=== PATIENT | male | born 1970 | race Caucasian/White ===

== ENCOUNTER 2024-02-03 11:49 | Inpatient (IN) ==
[2024-02-03] MEDS ORDERED: SODIUM CHLORIDE 0.9% 250 ML IV PRN ×2 (12:14→15:14)
[2024-02-03 12:22] LABS: Base Excess VBG -9.9 mEq/L; HCO3 VBG 16 mmol/L; Oxygen Saturation VBG < 60.0 %; PCO2 VBG 35 mmHg (38-50); PO2 VBG 20 mmHg; pH VBG 7.27 (7.36-7.41)
--- NOTE | 2024-02-03 12:22 | Emergency Department Note ---
Impression & Plan Severe sepsis with septic shock, Lactic acidosis, Rectal mass, Anemia, Hyperkalemia, Hematochezia, High anion gap metabolic acidosis ED Provider Note NAME: KEVIN KELLER AGE: 53 SEX: M : 1970 ARRIVES VIA: Walk-In INFORMANT: Patient ED PROVIDER(S): Elbert Schaefer MD CHIEF COMPLAINT: Weakness, illness, referred. PLAN: Disposition: Admit MEDICAL DECISION MAKING: The patient is a 53-year-old gentleman with past medical history of schizophrenia, hypertension who presents to the emergency department via walk-in accompanied by his sister for evaluation of illness/weakness in the setting of having 40 pound weight loss since July and acute decline over the past couple of weeks where family had urged him to see his doctor but he had declined but due to the severity of his illness today agreed to see his primary care doctor. He had blood work performed prior to his visit but upon seeing the patient who appeared critically ill was referred mainly to emergency department. Patient is a poor historian. He denies any black or bloody stool. He denies nausea or vomiting. He denies any alcohol use. Denies any drug use. Patient arrives to emergency department hypotensive with blood pressure 78/47 and heart in the 120s with rectal temperature of 36.6. He appears pale, clammy with rigors. Rectal exam demonstrates red/maroon- colored stool. I-STAT was obtained and demonstrates a hemoglobin of 10.5 with a creatinine of 1.1 and BUN of 10. There is a metabolic acidosis with a bicarbonate of 17. Anion gap is upper limit of normal at 20 per i-STAT range. Due to concern for active hemorrhage the patient was consented for blood transfusion and 1 unit of PRBCs was ordered to transfuse with 2 to hold given his hypotension. EKG demonstrated sinus tachycardia without overt ST elevation or depression. Chest x-ray negative for acute cardiopulmonary process per my preliminary independent interpretation. WBC 31.5 K with neutrophilia and left shift. H/H was 9.3/3.3 on lab draw. Platelets 636, nonspecific and likely reactive. INR is 1.2. Chemistry demonstrates anion gap metabolic acidosis with anion gap of 17 and bicarbonate of 17. VBG demonstrates mild acidemia with pH of LFTs seven 7.27. LFTs are unremarkable. Iron studies also obtained and demonstrate iron deficiency of 25. High-sensitivity troponin 7.2, within limits. Lipase is normal. Procalcitonin is mildly elevated at 0.79. UA without evidence of infection. CT of the head was performed and negative for acute abnormalities. CT of the chest also negative for ordered manage ordered CT of the abdomen pelvis demonstrates a large rectal mass with invasion of the prostate suspected and mesenteric lymphadenopathy raising suspicion for metastatic disease. No evidence of obstruction at this time. No active extravasation. Patient did have some improvement in his heart rate and blood pressure following 2 L of crystalloid/normal saline and 1 unit of PRBCs. Case discussed with general surgery CHRIS Spear with Dr. Berumen, general surgery on-call. Appreciate consultation/recommendations. Agrees that patient will require colorectal surgery for definitive management of CT findings. However they will be available for inpatient team consultation if the patient does is admitted to our facility though surgical intervention would not be considered. Case was discussed with Dr. Somers, [facility] hospitalist, who evaluated the patient for admission pending ICU recommendations. Case also discussed with Dr. Vásquez, ICU [employer] [facility] who evaluated patient at the bedside. Appreciate consultation and recommendations. Agrees patient will require medical stabilization but definitive treatment will involve colorectal surgery and discussed with family who did prefer trial to see if transfer to tertiary care center will be possible. Referred they did prefer [facility] transfer which is in line with the patient's insurance. Case discussed with [facility] ICU [facility] st[facility], Dr. Joseph. He does accept the patient for transfer to the medical ICU for further management. There are beds available and patient was placed as a priority 2 transfer and so a bed will be assigned within 8 hours per the [facility] transfer center. In the interim the patient remained with guarded hemodynamic stability with MAPS ranging from 60-70. Patient was given a second unit of PRBCs, the patient did not exhibit any episodes of spontaneous hematochezia. Levophed was subsequently ordered for additional blood pressure support in setting of component of sepsis. Labs remained stable in the 70s on minimal infusion at 0.05 mcg/KG/min. Bed assignment still pending and unable to be determined upon review with [facility] transfer center. Thus, the patient will be admitted to our facility/ICU for further management until bed availability is assigned and transportation can be arranged. Further management per admitting team. Triage Nursing notes reviewed and agree them. Prior/external medical records reviewed Vital Signs: reviewed Differential diagnosis: Infection, dehydration, metabolic abnormality, hypo/hyperglycemia, electrolyte disturbance, anemia, hypoxia, cardiac sources, intracerebral event, toxicologic, neurologic, as well as other pathologies. ER treatment provided: See below. Diagnostics interpreted by me: ECG: Sinus tachycardia, 153 bpm, no ectopy, no overt ST elevation or depression, QTc 504, QRS 72. Cardiac Monitoring: An order for continuous cardiac monitoring was placed and demonstrated Sinus tachycardia, 153 bpm, no ectopy, Laboratory studies: See below Imaging studies: See below Consultation(s): Dr. Somers, [facility] hospitalist. General surgery CHRIS Spear with Dr. Berumen, general surgery on-call. Dr. Vásquez, [place] ICU [employer] st[facility]. Dr. Joseph, [facility] ICU [facility] st[facility]. HPI: The patient is a 53-year-old gentleman with past medical history of schizophrenia, hypertension who presents to the emergency department via walk-in accompanied by his sister for evaluation of illness/weakness in the setting of having 40 pound weight loss since July and acute decline over the past couple of weeks where family had urged him to see his doctor but he had declined but due to the severity of his illness today agreed to see his primary care doctor. He had blood work performed prior to his visit but upon seeing the patient who appeared critically ill was referred mainly to emergency department. Patient is a poor historian. He denies any black or bloody stool. He denies nausea or vomiting. He denies any alcohol use. Denies any drug use. ROS: See above HPI for pertinent positives & negatives. A total of 10 systems reviewed and were otherwise negative. VITALS:See Below PHYSICAL EXAMINATION: GENERAL: Awake, alert, ill-appearing, in no distress HENT: Normocephalic, atraumatic. Oropharynx with pale, dry mucous membranes. EYES: Normal conjunctiva. Sclera non-icteric. NECK: Supple. No nuchal rigidity. FROM. No JVD. RESPIRATORY: Clear to auscultation. CARDIAC: Tachycardic rate, normal rhythm. Extremities warm and well perfused. Pulses equal. ABDOMEN: Soft, non-distended. No tenderness to palpation. No rebound or guarding. No masses. RECTAL: Caden red/maroon-colored stool. MUSCULOSKELETAL: Chest examination reveals no tenderness. The back is symmetrical on inspection without obvious abnormality. There is no CVA tenderness to palpation. No joint edema. LOWER EXTREMITIES: Calves are equal size bilaterally and non-tender. No edema. No discoloration. NEURO: Normal sensorium. No sensory or motor deficits noted. SKIN: Severe pallor, clammy. No rash or jaundice noted. ED COURSE: Procedures: Central Venous Catheter Indication: Septic shock/vasopressors Catheter type: 7.5f Triple lumen Location: Left IJ Verbal consent was obtained after the risks and benefits were explained, including but not limited to pneumothorax, hemothorax, vessel injury, bleeding, scarring, infection, pain, and bone/joint/nerve damage. At this time, the risks of the procedure are less than the risks of NOT performing the procedure. A time out was taken and the correct patient and site identified. The patient was placed in the supine position and the skin was prepped in the standard fashion with chlorhexidine and full sterile drapes applied. The proper landmarks were identified with ultrasound, anesthetized with 1% lidocaine without epinephrine, and the needle was inserted through the skin in the standard fashion. The needle was carefully advanced into blood vessel lumen under dynamic ultrasound guidance. The guidewire was placed uneventfully and confirmed with ultrasound. The vessel is dilated and the catheter was placed. It was sutured into position. There was good blood return from all ports. The patient tolerated the procedure well and there were no complications. Post procedure x-ray with acceptable placement in distal SVC. No pneumothorax. Critical Care: I have personally spent greater than 125 minutes of critical care time in the direct management of this patient. This includes bedside care, interpretation of diagnostic studies, and testing, discussion with consultants, patient, and family members, and other required patient management activities. This 125 minutes is in excess of all separately billable procedures. Elbert Schaefer MD Past Med/Surg History Problem List (Updated 02/03/24 @ 19:57 by Elbert Schaefer MD) High anion gap metabolic acidosis (Acute) Hematochezia (Acute) Hyponatremia Schizophrenia Sepsis Hyperkalemia (Acute) Anemia (Acute) Rectal mass (Acute) Lactic acidosis (Acute) Severe sepsis with septic shock (Acute) Medical History Hypothyroid Social History Feels Safe at Home: Yes Allergies Allergies Allergy/AdvReac Type Severity Reaction Status Date / Time aspirin Allergy Mild Unverified 08/10/09 03:49 PCN Allergy Mild Uncoded 01/06/06 16:09 Home Meds Home Medications Medication Instructions Recorded Confirmed atorvastatin 40 mg tablet 40 mg PO UD 02/03/24 02/03/24 carvedilol 12.5 mg tablet 12.5 mg PO UD 02/03/24 02/03/24 fenofibrate nanocrystallized 48 mg 48 mg PO UD 02/03/24 02/03/24 tablet hydrochlorothiazide 12.5 mg tablet 12.5 mg PO UD 02/03/24 02/03/24 levothyroxine 50 mcg tablet 50 mcg PO UD 02/03/24 02/03/24 lisinopril 5 mg tablet 5 mg PO UD 02/03/24 02/03/24 metformin 500 mg tablet,extended 1,000 mg PO QAM 02/03/24 02/03/24 release 24 hr risperidone 2 mg tablet 2 mg PO HS 02/03/24 02/03/24 spironolactone 50 mg tablet 50 mg PO DAILY 02/03/24 02/03/24 venlafaxine 37.5 mg 37.5 mg PO QAM 02/03/24 02/03/24 capsule,extended release 24 hr (Effexor XR) venlafaxine 75 mg capsule,extended 75 mg PO DAILY 02/03/24 02/03/24 release 24 hr (Effexor XR) Results & Data (ED) Vital Signs Vital Signs - 24 hr 02/03/24 11:51 02/03/24 11:58 02/03/24 12:01 Temperature 35.5 C L Temperature Source Skin Pulse Rate 153 H Pulse Rate [Right Finger] Pulse Rate from SpO2 Sensor Respiratory Rate 20 28 H Respiratory Effort / Characteristics Respiratory Depth Respiratory Pattern Blood Pressure 78/47 L 67/46 L 77/40 L Blood Pressure [Right Arm] Blood Pressure Mean 57 49 50 Blood Pressure Mean [Right Arm] Pulse Oximetry 85 L Oxygen Delivery Method Room Air Sepsis Recent Fever Within 48 Hours No Sepsis New/Unexplained Change in Mental Status Yes Sepsis Action Taken by Nursing Physician Notified 02/03/24 12:12 02/03/24 12:17 02/03/24 12:39 Temperature Temperature Source Pulse Rate 137 H 129 H 122 H Pulse Rate [Right Finger] Pulse Rate from SpO2 Sensor 123 H Respiratory Rate 28 H 17 Respiratory Effort / Characteristics Respiratory Depth Respiratory Pattern Blood Pressure 81/52 L 90/54 L Blood Pressure [Right Arm] Blood Pressure Mean 61 66 Blood Pressure Mean [Right Arm] Pulse Oximetry 99 Oxygen Delivery Method Sepsis Recent Fever Within 48 Hours Sepsis New/Unexplained Change in Mental Status Sepsis Action Taken by Nursing 02/03/24 13:12 02/03/24 13:13 02/03/24 14:01 Temperature 36.5 C Temperature Source Oral Pulse Rate 119 H 117 H Pulse Rate [Right Finger] 120 H Pulse Rate from SpO2 Sensor Respiratory Rate 26 H 26 H 24 Respiratory Effort / Characteristics Respiratory Depth Respiratory Pattern Tachypnea Blood Pressure 82/48 L 87/59 L Blood Pressure [Right Arm] 82/48 L Blood Pressure Mean 55 68 Blood Pressure Mean [Right Arm] 59 Pulse Oximetry 100 100 100 Oxygen Delivery Method Room Air Sepsis Recent Fever Within 48 Hours Sepsis New/Unexplained Change in Mental Status Sepsis Action Taken by Nursing 02/03/24 14:18 02/03/24 14:33 02/03/24 14:45 Temperature 36.7 C 36.6 C Temperature Source Oral Oral Pulse Rate 117 H 118 H 118 H Pulse Rate [Right Finger] Pulse Rate from SpO2 Sensor 118 H Respiratory Rate 24 24 31 H Respiratory Effort / Characteristics Respiratory Depth Respiratory Pattern Blood Pressure 80/63 L 80/59 L 96/64 L Blood Pressure [Right Arm] Blood Pressure Mean 68 66 74 Blood Pressure Mean [Right Arm] Pulse Oximetry 100 100 100 Oxygen Delivery Method Sepsis Recent Fever Within 48 Hours Sepsis New/Unexplained Change in Mental Status Sepsis Action Taken by Nursing 02/03/24 15:00 02/03/24 15:02 02/03/24 15:03 Temperature 36.6 C Temperature Source Oral Pulse Rate 115 H Pulse Rate [Right Finger] Pulse Rate from SpO2 Sensor Respiratory Rate 24 Respiratory Effort / Characteristics Respiratory Depth Respiratory Pattern Blood Pressure 98/63 L 89/64 L 86/64 L Blood Pressure [Right Arm] Blood Pressure Mean 72 72 71 Blood Pressure Mean [Right Arm] Pulse Oximetry 100 Oxygen Delivery Method Sepsis Recent Fever Within 48 Hours Sepsis New/Unexplained Change in Mental Status Sepsis Action Taken by Nursing 02/03/24 15:06 02/03/24 15:15 02/03/24 15:15 Temperature Temperature Source Pulse Rate 119 H 118 H Pulse Rate [Right Finger] 117 H Pulse Rate from SpO2 Sensor 119 H 116 H Respiratory Rate 32 H 28 H 16 Respiratory Effort / Characteristics Non-Labored Spontaneous Respiratory Depth Normal Respiratory Pattern Blood Pressure 89/64 L 93/60 L Blood Pressure [Right Arm] 93/60 L Blood Pressure Mean 72 71 Blood Pressure Mean [Right Arm] 71 Pulse Oximetry 100 100 100 Oxygen Delivery Method Room Air Sepsis Recent Fever Within 48 Hours Sepsis New/Unexplained Change in Mental Status Sepsis Action Taken by Nursing 02/03/24 15:30 02/03/24 15:45 02/03/24 15:51 Temperature Temperature Source Pulse Rate 118 H 117 H Pulse Rate [Right Finger] Pulse Rate from SpO2 Sensor 119 H 112 H Respiratory Rate 17 27 H Respiratory Effort / Characteristics Respiratory Depth Respiratory Pattern Blood Pressure 89/58 L 87/59 L Blood Pressure [Right Arm] Blood Pressure Mean 68 63 Blood Pressure Mean [Right Arm] Pulse Oximetry 100 81 L Oxygen Delivery Method Sepsis Recent Fever Within 48 Hours Sepsis New/Unexplained Change in Mental Status Sepsis Action Taken by Nursing 02/03/24 15:57 02/03/24 16:07 02/03/24 16:21 Temperature 36.5 C Temperature Source Oral Pulse Rate 109 H 100 H 99 H Pulse Rate [Right Finger] Pulse Rate from SpO2 Sensor 108 H 99 H Respiratory Rate 27 H 29 H 19 Respiratory Effort / Characteristics Respiratory Depth Respiratory Pattern Blood Pressure 94/67 L 94/67 L 88/55 L Blood Pressure [Right Arm] Blood Pressure Mean 76 76 66 Blood Pressure Mean [Right Arm] Pulse Oximetry 99 100 100 Oxygen Delivery Method Sepsis Recent Fever Within 48 Hours Sepsis New/Unexplained Change in Mental Status Sepsis Action Taken by Nursing 02/03/24 16:24 02/03/24 16:24 02/03/24 16:30 Temperature 36.6 C Temperature Source Oral Pulse Rate 100 H 102 H Pulse Rate [Right Finger] Pulse Rate from SpO2 Sensor Respiratory Rate 27 H Respiratory Effort / Characteristics Respiratory Depth Respiratory Pattern Blood Pressure 87/51 L Blood Pressure [Right Arm] Blood Pressure Mean 63 Blood Pressure Mean [Right Arm] Pulse Oximetry 100 100 Oxygen Delivery Method Room Air Sepsis Recent Fever Within 48 Hours Sepsis New/Unexplained Change in Mental Status Sepsis Action Taken by Nursing 02/03/24 16:39 02/03/24 16:42 02/03/24 16:45 Temperature 36.5 C Temperature Source Oral Pulse Rate 108 H 111 H 113 H Pulse Rate [Right Finger] Pulse Rate from SpO2 Sensor 113 H Respiratory Rate 20 19 21 Respiratory Effort / Characteristics Respiratory Depth Respiratory Pattern Blood Pressure 83/56 L 83/56 L Blood Pressure [Right Arm] Blood Pressure Mean 65 65 Blood Pressure Mean [Right Arm] Pulse Oximetry 100 100 97 Oxygen Delivery Method Sepsis Recent Fever Within 48 Hours Sepsis New/Unexplained Change in Mental Status Sepsis Action Taken by Nursing 02/03/24 17:00 02/03/24 17:03 02/03/24 17:09 Temperature 36.6 C Temperature Source Oral Pulse Rate 105 H 97 H Pulse Rate [Right Finger] 106 H Pulse Rate from SpO2 Sensor 112 H Respiratory Rate 25 H 23 19 Respiratory Effort / Characteristics Non-Labored Spontaneous Respiratory Depth Normal Respiratory Pattern Blood Pressure 81/52 L 94/62 L Blood Pressure [Right Arm] 81/52 L Blood Pressure Mean 61 72 Blood Pressure Mean [Right Arm] 61 Pulse Oximetry 98 100 100 Oxygen Delivery Method Room Air Sepsis Recent Fever Within 48 Hours Sepsis New/Unexplained Change in Mental Status Sepsis Action Taken by Nursing 02/03/24 17:15 02/03/24 17:15 02/03/24 17:27 Temperature Temperature Source Pulse Rate 104 H 101 H Pulse Rate [Right Finger] Pulse Rate from SpO2 Sensor 103 H 101 H Respiratory Rate 27 H 25 H Respiratory Effort / Characteristics Respiratory Depth Respiratory Pattern Blood Pressure 94/62 L 94/62 L 88/59 L Blood Pressure [Right Arm] Blood Pressure Mean 72 72 68 Blood Pressure Mean [Right Arm] Pulse Oximetry 100 100 Oxygen Delivery Method Sepsis Recent Fever Within 48 Hours Sepsis New/Unexplained Change in Mental Status Sepsis Action Taken by Nursing 02/03/24 17:45 02/03/24 17:45 02/03/24 18:00 Temperature Temperature Source Pulse Rate 99 H 102 H Pulse Rate [Right Finger] 97 H Pulse Rate from SpO2 Sensor 101 H Respiratory Rate 23 27 H Respiratory Effort / Characteristics Respiratory Depth Respiratory Pattern Blood Pressure 94/62 L 97/64 L Blood Pressure [Right Arm] 94/62 L Blood Pressure Mean 66 75 Blood Pressure Mean [Right Arm] 72 Pulse Oximetry 100 99 Oxygen Delivery Method Room Air Sepsis Recent Fever Within 48 Hours Sepsis New/Unexplained Change in Mental Status Sepsis Action Taken by Nursing 02/03/24 18:15 02/03/24 18:30 02/03/24 18:45 Temperature Temperature Source Pulse Rate 97 H 102 H 100 H Pulse Rate [Right Finger] Pulse Rate from SpO2 Sensor Respiratory Rate Respiratory Effort / Characteristics Respiratory Depth Respiratory Pattern Blood Pressure 94/60 L 102/63 103/69 Blood Pressure [Right Arm] Blood Pressure Mean 70 75 77 Blood Pressure Mean [Right Arm] Pulse Oximetry Oxygen Delivery Method Sepsis Recent Fever Within 48 Hours Sepsis New/Unexplained Change in Mental Status Sepsis Action Taken by Nursing Laboratory Data Attestation: I reviewed the patient's lab results. 02/03/24 12:08 02/03/24 17:24 Lab Results 02/03/24 02/03/24 02/03/24 Range/Units 12:08 12:08 12:08 WBC 31.53 H* (4.8-10.8) K/ul RBC 4.00 L (4.70-6.10) M/uL Hgb 9.3 L (14.0-18.0) g/dl POC Hgb (14.0-18.0) g/dl Hct 30.3 L (42.0-52.0) % POC Hct (42-52) % MCV 75.8 L (80.0-100.0) fL MCH 23.3 L (25.0-34.0) pg MCHC 30.7 L (32.0-36.0) g/dL RDW Std Deviation 46.8 H (36.4-46.3) fL RDW Coeff of Dru 17.3 H (11.5-14.5) % Plt Count 636 H (130-400) K/uL MPV 8.3 L (9.4-12.4) fL Immature Gran % (Auto) 5.4 % Neut % (Auto) 85.2 % Lymph % (Auto) 3.2 % Tate % (Auto) 5.8 % Eos % (Auto) 0.1 % Baso % (Auto) 0.3 % Reticulocyte % (Auto) 3.59 H Cancelled (0.50-2.00) % Neut # (Auto) 26.85 H (1.40-6.50) K/uL Lymph # (Auto) 1.00 L (1.20-3.40) K/uL Tate # (Auto) 1.84 H (0.11-0.59) K/uL Eos # (Auto) 0.02 (0.00-0.50) K/uL Baso # (Auto) 0.11 (0.00-0.20) K/uL Reticulocyte # 0.140 H Cancelled (0.020-0.100) 10^6/uL Immature Gran # (Auto) 1.71 H (0.01-0.20) K/uL Polychromasia 1+ Echinocytes 1+ PT 12.4 H (9.0-12.0) Seconds INR 1.2 H (0.9-1.1) APTT 23 (21-31) Seconds PTT Ratio 0.9 Fibrinogen (184-400) mg/dl VBG pH 7.27 L (7.36-7.41) VBG pCO2 35 L (38-50) mmHg VBG pO2 20 mmHg VBG HCO3 16 mmol/L VBG O2 Saturation < 60.0 % VBG Base Excess -9.9 mEq/L POC Sodium (135-144) mmol/L Sodium 124 L (136-145) mmol/L POC Potassium (3.3-5.0) mmol/L Potassium 5.2 H (3.5-5.1) mmol/L POC Chloride (101-112) mmol/L Chloride 90 L (98-107) mmol/L Carbon Dioxide 17 L (21-32) mmol/L POC Total CO2 (24-31) mmol/L Anion Gap 17 H (3-11) POC Anion Gap (16-25) mmol/L POC BUN (7-18) mg/dl BUN 10 (6-23) mg/dl Creatinine 1.08 (0.6-1.4) mg/dl POC Creatinine (0.6-1.3) mg/dl Est Cr Clr Drug Dosing 70.8 ml/min Est GFR ( Amer) 90.3 ml/min Est GFR (Non-Af Amer) 77.9 ml/min BUN/Creatinine Ratio 9.3 L (10-20) Glucose 378 H* (70-99(Fasting)) mg/dl POC Glucose (70-99) mg/dl POC Glucose (other) (70-99) mg/dl Lactate 9.1 H* (0.4-2.0) mmol/L Calcium 9.1 (8.6-10.3) mg/dl POC Ioniz Calcium Sina (1.12-1.32) mmol/l Phosphorus 5.2 H (2.5-4.9) mg/dl Magnesium 2.1 (1.7-2.4) mg/dl Iron 25 L (35-175) mcg/dl Unsaturated IBC (155-355) mcg/dl Transferrin 153 L (200-360) mg/dl Ferritin 153.6 (8-388) ng/ml Total Bilirubin 0.4 (0.2-1.0) mg/dl Direct Bilirubin 0.1 (0-0.2) mg/dl AST 17 (13-39) U/L ALT 24 (7-52) U/L Alkaline Phosphatase 94 (34-104) U/L Troponin I High Sens 7.2 (0-20) pg/ml Total Protein 7.5 (6.0-8.3) gm/dl Albumin 3.1 L (3.4-5.0) gm/dl Lipase 21 (11-82) U/L Vitamin B12 (180-914) pg/ml Folate (>5.38) ng/ml Procalcitonin 0.79 H (0-0.5) ng/ml Random Cortisol mcg/dl Urine Color Urine Appearance (Clear) Urine pH (4.5-7.5) Ur Specific [place] (1.000-1.030) Urine Protein (Negative) Urine Glucose (UA) (Negative) Urine Ketones (Negative) Urine Blood (Negative) Urine Nitrite (Negative) Urine Bilirubin (Negative) Urine Urobilinogen (Negative) Ur Leukocyte Esterase (Negative) Nasal Screen MRSA (PCR) (Negative) Blood Type B Positive Blood Type Recheck Antibody Screen NEGATIVE Crossmatch See Detail 02/03/24 02/03/24 02/03/24 Range/Units 12:10 12:11 12:26 WBC (4.8-10.8) K/ul RBC (4.70-6.10) M/uL Hgb (14.0-18.0) g/dl POC Hgb 10.5 L (14.0-18.0) g/dl Hct (42.0-52.0) % POC Hct 31 L (42-52) % MCV (80.0-100.0) fL MCH (25.0-34.0) pg MCHC (32.0-36.0) g/dL RDW Std Deviation (36.4-46.3) fL RDW Coeff of Dru (11.5-14.5) % Plt Count (130-400) K/uL MPV (9.4-12.4) fL Immature Gran % (Auto) % Neut % (Auto) % Lymph % (Auto) % Tate % (Auto) % Eos % (Auto) % Baso % (Auto) % Reticulocyte % (Auto) (0.50-2.00) % Neut # (Auto) (1.40-6.50) K/uL Lymph # (Auto) (1.20-3.40) K/uL Tate # (Auto) (0.11-0.59) K/uL Eos # (Auto) (0.00-0.50) K/uL Baso # (Auto) (0.00-0.20) K/uL Reticulocyte # (0.020-0.100) 10^6/uL Immature Gran # (Auto) (0.01-0.20) K/uL Polychromasia Echinocytes PT (9.0-12.0) Seconds INR (0.9-1.1) APTT (21-31) Seconds PTT Ratio Fibrinogen (184-400) mg/dl VBG pH (7.36-7.41) VBG pCO2 (38-50) mmHg VBG pO2 mmHg VBG HCO3 mmol/L VBG O2 Saturation % VBG Base Excess mEq/L POC Sodium 125 L (135-144) mmol/L Sodium (136-145) mmol/L POC Potassium 5.4 H (3.3-5.0) mmol/L Potassium (3.5-5.1) mmol/L POC Chloride 94 L (101-112) mmol/L Chloride (98-107) mmol/L Carbon Dioxide (21-32) mmol/L POC Total CO2 17 L (24-31) mmol/L Anion Gap (3-11) POC Anion Gap 20.0 (16-25) mmol/L POC BUN 10 (7-18) mg/dl BUN (6-23) mg/dl Creatinine (0.6-1.4) mg/dl POC Creatinine 1.1 (0.6-1.3) mg/dl Est Cr Clr Drug Dosing ml/min Est GFR ( Amer) ml/min Est GFR (Non-Af Amer) ml/min BUN/Creatinine Ratio (10-20) Glucose (70-99(Fasting)) mg/dl POC Glucose (70-99) mg/dl POC Glucose (other) 364 H* (70-99) mg/dl Lactate (0.4-2.0) mmol/L Calcium (8.6-10.3) mg/dl POC Ioniz Calcium Sina 1.14 (1.12-1.32) mmol/l Phosphorus (2.5-4.9) mg/dl Magnesium (1.7-2.4) mg/dl Iron (35-175) mcg/dl Unsaturated IBC 132 L (155-355) mcg/dl Transferrin (200-360) mg/dl Ferritin (8-388) ng/ml Total Bilirubin (0.2-1.0) mg/dl Direct Bilirubin (0-0.2) mg/dl AST (13-39) U/L ALT (7-52) U/L Alkaline Phosphatase (34-104) U/L Troponin I High Sens (0-20) pg/ml Total Protein (6.0-8.3) gm/dl Albumin (3.4-5.0) gm/dl Lipase (11-82) U/L Vitamin B12 464 (180-914) pg/ml Folate 6.33 (>5.38) ng/ml Procalcitonin (0-0.5) ng/ml Random Cortisol 49.14 mcg/dl Urine Color Yellow Urine Appearance Clear (Clear) Urine pH 6.5 (4.5-7.5) Ur Specific [place] 1.008 (1.000-1.030) Urine Protein Negative (Negative) Urine Glucose (UA) Negative (Negative) Urine Ketones Negative (Negative) Urine Blood Negative (Negative) Urine Nitrite Negative (Negative) Urine Bilirubin Negative (Negative) Urine Urobilinogen Negative (Negative) Ur Leukocyte Esterase Negative (Negative) Nasal Screen MRSA (PCR) (Negative) Blood Type Blood Type Recheck Antibody Screen Crossmatch 02/03/24 02/03/24 02/03/24 Range/Units 12:32 13:58 15:05 WBC (4.8-10.8) K/ul RBC (4.70-6.10) M/uL Hgb (14.0-18.0) g/dl POC Hgb (14.0-18.0) g/dl Hct (42.0-52.0) % POC Hct (42-52) % MCV (80.0-100.0) fL MCH (25.0-34.0) pg MCHC (32.0-36.0) g/dL RDW Std Deviation (36.4-46.3) fL RDW Coeff of Dru (11.5-14.5) % Plt Count (130-400) K/uL MPV (9.4-12.4) fL Immature Gran % (Auto) % Neut % (Auto) % Lymph % (Auto) % Tate % (Auto) % Eos % (Auto) % Baso % (Auto) % Reticulocyte % (Auto) (0.50-2.00) % Neut # (Auto) (1.40-6.50) K/uL Lymph # (Auto) (1.20-3.40) K/uL Tate # (Auto) (0.11-0.59) K/uL Eos # (Auto) (0.00-0.50) K/uL Baso # (Auto) (0.00-0.20) K/uL Reticulocyte # (0.020-0.100) 10^6/uL Immature Gran # (Auto) (0.01-0.20) K/uL Polychromasia Echinocytes PT (9.0-12.0) Seconds INR (0.9-1.1) APTT (21-31) Seconds PTT Ratio Fibrinogen (184-400) mg/dl VBG pH (7.36-7.41) VBG pCO2 (38-50) mmHg VBG pO2 mmHg VBG HCO3 mmol/L VBG O2 Saturation % VBG Base Excess mEq/L POC Sodium (135-144) mmol/L Sodium (136-145) mmol/L POC Potassium (3.3-5.0) mmol/L Potassium (3.5-5.1) mmol/L POC Chloride (101-112) mmol/L Chloride (98-107) mmol/L Carbon Dioxide (21-32) mmol/L POC Total CO2 (24-31) mmol/L Anion Gap (3-11) POC Anion Gap (16-25) mmol/L POC BUN (7-18) mg/dl BUN (6-23) mg/dl Creatinine (0.6-1.4) mg/dl POC Creatinine (0.6-1.3) mg/dl Est Cr Clr Drug Dosing ml/min Est GFR ( Amer) ml/min Est GFR (Non-Af Amer) ml/min BUN/Creatinine Ratio (10-20) Glucose (70-99(Fasting)) mg/dl POC Glucose (70-99) mg/dl POC Glucose (other) (70-99) mg/dl Lactate 6.4 H* (0.4-2.0) mmol/L Calcium (8.6-10.3) mg/dl POC Ioniz Calcium Sina (1.12-1.32) mmol/l Phosphorus (2.5-4.9) mg/dl Magnesium (1.7-2.4) mg/dl Iron (35-175) mcg/dl Unsaturated IBC (155-355) mcg/dl Transferrin (200-360) mg/dl Ferritin (8-388) ng/ml Total Bilirubin (0.2-1.0) mg/dl Direct Bilirubin (0-0.2) mg/dl AST (13-39) U/L ALT (7-52) U/L Alkaline Phosphatase (34-104) U/L Troponin I High Sens (0-20) pg/ml Total Protein (6.0-8.3) gm/dl Albumin (3.4-5.0) gm/dl Lipase (11-82) U/L Vitamin B12 (180-914) pg/ml Folate (>5.38) ng/ml Procalcitonin (0-0.5) ng/ml Random Cortisol mcg/dl Urine Color Urine Appearance (Clear) Urine pH (4.5-7.5) Ur Specific [place] (1.000-1.030) Urine Protein (Negative) Urine Glucose (UA) (Negative) Urine Ketones (Negative) Urine Blood (Negative) Urine Nitrite (Negative) Urine Bilirubin (Negative) Urine Urobilinogen (Negative) Ur Leukocyte Esterase (Negative) Nasal Screen MRSA (PCR) Negative (Negative) Blood Type Blood Type Recheck B Positive Antibody Screen Crossmatch 02/03/24 02/03/24 02/03/24 Range/Units 16:13 17:24 19:19 WBC (4.8-10.8) K/ul RBC (4.70-6.10) M/uL Hgb (14.0-18.0) g/dl POC Hgb (14.0-18.0) g/dl Hct (42.0-52.0) % POC Hct (42-52) % MCV (80.0-100.0) fL MCH (25.0-34.0) pg MCHC (32.0-36.0) g/dL RDW Std Deviation (36.4-46.3) fL RDW Coeff of Dru (11.5-14.5) % Plt Count (130-400) K/uL MPV (9.4-12.4) fL Immature Gran % (Auto) % Neut % (Auto) % Lymph % (Auto) % Tate % (Auto) % Eos % (Auto) % Baso % (Auto) % Reticulocyte % (Auto) (0.50-2.00) % Neut # (Auto) (1.40-6.50) K/uL Lymph # (Auto) (1.20-3.40) K/uL Tate # (Auto) (0.11-0.59) K/uL Eos # (Auto) (0.00-0.50) K/uL Baso # (Auto) (0.00-0.20) K/uL Reticulocyte # (0.020-0.100) 10^6/uL Immature Gran # (Auto) (0.01-0.20) K/uL Polychromasia Echinocytes PT (9.0-12.0) Seconds INR (0.9-1.1) APTT (21-31) Seconds PTT Ratio Fibrinogen 496 H (184-400) mg/dl VBG pH 7.37 7.45 H (7.36-7.41) VBG pCO2 33 L 27 L (38-50) mmHg VBG pO2 32 35 mmHg VBG HCO3 19 19 mmol/L VBG O2 Saturation 67.8 66.9 % VBG Base Excess -5.3 -3.8 mEq/L POC Sodium (135-144) mmol/L Sodium 130 L (136-145) mmol/L POC Potassium (3.3-5.0) mmol/L Potassium 3.9 D (3.5-5.1) mmol/L POC Chloride (101-112) mmol/L Chloride 103 (98-107) mmol/L Carbon Dioxide 19 L (21-32) mmol/L POC Total CO2 (24-31) mmol/L Anion Gap 8 (3-11) POC Anion Gap (16-25) mmol/L POC BUN (7-18) mg/dl BUN 9 (6-23) mg/dl Creatinine 0.70 D (0.6-1.4) mg/dl POC Creatinine (0.6-1.3) mg/dl Est Cr Clr Drug Dosing 109.3 ml/min Est GFR ( Amer) 124.9 ml/min Est GFR (Non-Af Amer) 107.7 ml/min BUN/Creatinine Ratio 12.9 (10-20) Glucose 96 (70-99(Fasting)) mg/dl POC Glucose 213 H (70-99) mg/dl POC Glucose (other) (70-99) mg/dl Lactate 4.1 H* 2.0 (0.4-2.0) mmol/L Calcium 7.4 L (8.6-10.3) mg/dl POC Ioniz Calcium Sina (1.12-1.32) mmol/l Phosphorus (2.5-4.9) mg/dl Magnesium (1.7-2.4) mg/dl Iron (35-175) mcg/dl Unsaturated IBC (155-355) mcg/dl Transferrin (200-360) mg/dl Ferritin (8-388) ng/ml Total Bilirubin (0.2-1.0) mg/dl Direct Bilirubin (0-0.2) mg/dl AST (13-39) U/L ALT (7-52) U/L Alkaline Phosphatase (34-104) U/L Troponin I High Sens (0-20) pg/ml Total Protein (6.0-8.3) gm/dl Albumin (3.4-5.0) gm/dl Lipase (11-82) U/L Vitamin B12 (180-914) pg/ml Folate (>5.38) ng/ml Procalcitonin (0-0.5) ng/ml Random Cortisol mcg/dl Urine Color Urine Appearance (Clear) Urine pH (4.5-7.5) Ur Specific [place] (1.000-1.030) Urine Protein (Negative) Urine Glucose (UA) (Negative) Urine Ketones (Negative) Urine Blood (Negative) Urine Nitrite (Negative) Urine Bilirubin (Negative) Urine Urobilinogen (Negative) Ur Leukocyte Esterase (Negative) Nasal Screen MRSA (PCR) (Negative) Blood Type Blood Type Recheck Antibody Screen Crossmatch Administered Medications Pantoprazole Sodium 40 mg/ (Dextrose) 100 mls @ 20 mls/hr IV Q5H [facility] Stop: 03/04/24 12:29 Last Admin: 02/03/24 17:54 Dose: 8 mg/hr, 20 mls/hr Documented By: Infusion: 02/03/24 17:54 Dose: Infused Documented By: Admin: 02/03/24 12:53 Dose: 8 mg/hr, 20 mls/hr Documented By: Norepinephrine Bitartrate (Levophed/D5w) 4 mg in 250 mls @ 11.869 mls/hr IV .Q21H4M [facility]; Protocol Stop: 03/04/24 17:14 Last Admin: 02/03/24 17:07 Dose: 0.05 mcg/kg/min, 11.9 mls/hr Documented By: AUGUSTINE Co-signed By: EB Discontinued Medications Dextrose (Dextrose 50% 50 Ml Syringe) 25 ml IV ONE ONE Stop: 02/03/24 16:31 Last Admin: 02/03/24 16:28 Dose: 25 ml Documented By: AUGUSTINE Sodium Chloride (Nss) 1,000 mls @ 999 mls/hr IV .Q1H1M [facility] Stop: 02/03/24 13:15 Last Infusion: 02/03/24 13:50 Dose: Infused Documented By: Admin: 02/03/24 12:43 Dose: 999 mls/hr Documented By: Sodium Chloride (Nss) 1,000 mls @ 999 mls/hr IV .Q1H1M ONE Stop: 02/03/24 13:11 Last Infusion: 02/03/24 13:50 Dose: Infused Documented By: Admin: 02/03/24 12:43 Dose: 999 mls/hr Documented By: Pantoprazole Sodium 80 mg/ (Dextrose) 120 mls @ 480 mls/hr IV NOW ONE Stop: 02/03/24 12:26 Last Infusion: 02/03/24 14:11 Dose: Infused Documented By: Admin: 02/03/24 12:44 Dose: 480 mls/hr Documented By: MR Piperacillin Sod/Tazobactam Sod (Zosyn) 4.5 gm in 100 mls @ 200 mls/hr IV NOW ONE Stop: 02/03/24 14:56 Last Infusion: 02/03/24 15:45 Dose: Infused Documented By: Admin: 02/03/24 15:15 Dose: 200 mls/hr Documented By: AUGUSTINE Acetaminophen (Ofirmev) 1,000 mg in 100 mls @ 400 mls/hr IV NOW STA Stop: 02/03/24 15:28 Last Infusion: 02/03/24 15:55 Dose: Infused Documented By: Admin: 02/03/24 15:40 Dose: 400 mls/hr Documented By: AUGUSTINE Sodium Chloride (Nss) 1,000 mls @ 999 mls/hr IV .Q1H1M [facility] Stop: 02/03/24 18:00 Last Infusion: 02/03/24 17:24 Dose: Infused Documented By: Admin: 02/03/24 16:17 Dose: 999 mls/hr Documented By: Infusion: 02/03/24 16:17 Dose: Infused Documented By: Admin: 02/03/24 15:52 Dose: 999 mls/hr Documented By: AUGUSTINE Insulin Human Regular (Novolin-R Insulin Per Unit Charge) 5 units IV NOW STA Stop: 02/03/24 15:53 Last Admin: 02/03/24 16:20 Dose: 5 units Documented By: AUGUSTINE Co-signed By: MARY Ioversol (Optiray 320 125ml) 120 ml IV ONCE ONE Stop: 02/03/24 13:10 Last Admin: 02/03/24 13:09 Dose: 120 ml Documented By: VEL Pantoprazole Sodium (Pantoprazole Bolus/Drip) 1 each IV NOW STA Stop: 02/03/24 12:13 Last Admin: 02/03/24 15:41 Dose: Not Given Documented By: AUGUSTINE Sodium Bicarbonate (Sodium Bicarb 8.4% Inj 50 Meq/50 Ml Syr) 50 meq IV NOW STA Stop: 02/03/24 15:48 Last Admin: 02/03/24 15:52 Dose: 50 meq Documented By: AUGUSTINE Imaging Data Radiologist's Impression: Chest X-Ray 02/03/24 12:04 XR chest 1V portable HISTORY: Sepsis COMPARISON: None. FINDINGS: The lungs are clear. Cardiac silhouette is normal in size. No pleural effusions. No pneumothorax. IMPRESSION: No acute process. ACT 112: Negative or not required by law. Electronically signed by: Gurvinder Young M.D. 02/03/2024 1:52 PM Abdomen/Pelvis CT 02/03/24 12:[address] WITH IV CONTRAST CT DOSE: HISTORY: hypotensive, lower GIB TECHNIQUE: Multiaxial CT images of the abdomen and pelvis were performed following the use of intravenous contrast. A dose lowering technique was utilized adhering to the principles of ALARA. COMPARISON STUDY: None. FINDINGS: The lung bases will be reported on the same day chest CTA. No pneumoperitoneum. No pneumatosis. No suspicious lytic or blastic osseous lesions. There is nondisplaced healing fracture through the S3 level of the sacrum. No hepatic or splenic masses. The adrenal glands are unremarkable. Small gallstone. No gallbladder wall thickening. The main portal vein is patent. Punctate cortical calcification within the left kidney. No hydronephrosis. There are few scattered punctate calcifications within the pancreas. There is a focal coarse calcifications within the tail the pancreas which results in pancreatic atrophy and mild dilatation of the main pancreatic duct at the distal tip of the tail. The main pancreatic duct at this location measures approximately 4 mm. Normal caliber abdominal aorta. Mildly enlarged inferior mesenteric and perirectal lymph nodes. Dominant right perirectal lymph node on image 293 measures 12 mm. This is consistent with metastatic disease. There is a large heterogeneous/necrotic mass within/surrounding the rectum which measures approximately 9.6 x 8.8 cm. This results in moderate narrowing of the rectal lumen without evidence for a bowel obstruction. This mass appears to invade into the posterior prostate gland. The bladder is decompressed by Fox catheter. Normal appendix. IMPRESSION: 1. There is a large heterogeneous mass within/surrounding the rectum which measures approximately 9.6 x 8.8 cm. This results in moderate narrowing of the rectal lumen without evidence for a bowel obstruction. This mass also invades into the posterior prostate gland. 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 A primary prostate malignancy remains in the differential diagnosis. 2. Perirectal and inferior mesenteric lymphadenopathy consistent with metastatic disease. 3. Focal coarse calcification at the distal tip of the pancreatic tail resulting in focal dilatation of main pancreatic duct and atrophy of the tip of the pancreatic tail 4. Cholelithiasis. 5. The bladder is decompressed by Fox catheter. ACT 112: Negative or not required by law. Electronically signed by: Gurvinder Young M.D. 02/03/2024 1:50 PM Chest CTA 02/03/24 12:22 CT angio chest PE protocol CLINICAL HISTORY: hypoxia, hypotension, tachycardia, r/o PE TECHNIQUE: Multidetector row helical CT of the chest was performed with angiographic protocol. Coronal and sagittal reformations were obtained. Coronal and sagittal MIPS were obtained from the axial data set and were submitted for review. Automated dose lowering techniques and/or adjustment according to patient size were utilized for this exam. CT DOSE: 2549.93 mGy.cm Comparison: Comparison is made to CTA chest 02/03/2024 FINDINGS: Lungs and pleura: Atelectasis versus scarring is seen in the dependent portions of the lungs. Heart and pericardium: Heart size is normal. No pericardial effusion. Vessels: No evidence of pulmonary embolism. Mediastinum and radha: Unremarkable. Chest wall and lower neck: Unremarkable. Abdomen: Unremarkable. Bones: Unremarkable. IMPRESSION: No acute abnormality and in particular no evidence of pulmonary embolus. ACT 112: Negative or not required by law. Electronically signed by: Derick Khalil M.D. 02/03/2024 1:[address] 02/03/24 12:22 CT head/brain wo con CLINICAL HISTORY: 53 years-old Male with ams. Acute head trauma with altered mental status TECHNIQUE: Multiple axial CT images of the head were obtained without contrast. A dose lowering technique was utilized adhering to the principles of ALARA. COMPARISON: None. FINDINGS: No acute intracranial hemorrhage, midline shift, intracranial mass, hydrocephalus, territorial ischemia or abnormal extra-axial collection. The calvarium is intact. The paranasal sinuses, mastoid air cells, and middle ear cavities are clear. IMPRESSION: No acute intracranial abnormality. ACT 112: Negative or not required by law. The above report was generated using voice recognition software. It may contain grammatical, syntax or spelling errors. Electronically signed by: Delvis Holman M.D. 02/03/2024 1:33 PM Discharge Plan Visit Data Chief Complaint: Referred by Doctor Stated Complaint: LOW BLOOD PRESSURE, LOW OXYGEN, SHAKES, NEAR SYNCO ED Provider: Elbert Schaefer Discharge Problem: Severe sepsis with septic shock, Lactic acidosis, Rectal mass, Anemia, Hyperkalemia, Hematochezia, High anion gap metabolic acidosis Forms Stand Alone Forms: My [facility] Prescriptions Prescriptions: No Action atorvastatin 40 mg tablet 40 mg PO UD Rx Instructions: 40 mg po daily unable to verify; not on med list faxed from [facility] pharmacy 02/03/24 venlafaxine [Effexor XR] 37.5 mg capsule,extended release 24hr 37.5 mg PO QAM venlafaxine [Effexor XR] 75 mg capsule,extended release 24hr 75 mg PO DAILY risperidone 2 mg tablet 2 mg PO HS levothyroxine 50 mcg tablet 50 mcg PO UD Rx Instructions: 50 mcg daily unable to verify; not on med list faxed from [facility] pharmacy 02/03/24 lisinopril 5 mg tablet 5 mg PO UD Rx Instructions: 5 mg po daily unable to verify; not on med list faxed from [facility] pharmacy 02/03/24 metformin 500 mg tablet extended release 24 hr 1,000 mg PO QAM spironolactone 50 mg tablet 50 mg PO DAILY fenofibrate nanocrystallized 48 mg tablet 48 mg PO UD Rx Instructions: 48 mg po daily unable to verify; not on med list faxed from [facility] pharmacy 02/03/24 hydrochlorothiazide 12.5 mg tablet 12.5 mg PO UD Rx Instructions: 12.5 mg po daily unable to verify; not on med list faxed from [facility] pharmacy 02/03/24 carvedilol 12.5 mg Tablet 12.5 mg PO UD Rx Instructions: 12.5 mg po bid On list from pharmacy, last filled 10/09/23 but was returned to stock. Referrals Referrals: PCP,NO [Physician] - Discharge Problem: Anemia Qualifiers: Anemia type: unspecified type Qualified Code(s): D64.9 - Anemia, unspecified
[2024-02-03 12:25] LABS: Appearance Urine Clear (Clear); Bilirubin Urine Negative (Negative); Blood Urine Negative (Negative); Color Urine Yellow; Glucose Urine UA Negative (Negative); Ketones Urine Negative (Negative); Leukocyte Esterase Urine Negative (Negative); Nitrite Urine Negative (Negative); Protein Urine Negative (Negative); Specific Gravity Urine 1.008 (1.000-1.030); Urobilinogen Urine Negative (Negative); pH Urine 6.5 (4.5-7.5)
[2024-02-03 12:25] LABS: iSTAT Creatinine 1.1 mg/dl (0.6-1.3); iSTAT Hemoglobin 10.5 g/dl (14.0-18.0); iSTAT Ionized Calcium 1.14 mmol/l (1.12-1.32); iSTAT Potassium 5.4 mmol/L (3.3-5.0)
[2024-02-03 12:36] LABS: Hematocrit (blood only) 30.3 % (42.0-52.0); Hemoglobin 9.3 g/dl (14.0-18.0); Mean Corpuscular Hemoglobin 23.3 pg (25.0-34.0); Mean Corpuscular Hgb Conc 30.7 g/dL (32.0-36.0); Mean Corpuscular Volume 75.8 fL (80.0-100.0); Mean Platelet Volume 8.3 fL (9.4-12.4); Platelet Count 636 K/uL (130-400); RDW Coefficient of Variation 17.3 % (11.5-14.5); RDW Standard Deviation 46.8 fL (36.4-46.3); White Blood Count 31.53 K/ul (4.8-10.8)
[2024-02-03] MEDS: SODIUM CHLORIDE 0.9% 1,000 ML IV ONE (12:43)
[2024-02-03] MEDS: SODIUM CHLORIDE 0.9% 1,000 ML IV SCH ×2 (12:43→15:52)
[2024-02-03] MEDS: PANTOprazole 80 MG in DEXTROSE 5% 100 ML IV ONE (12:44)
[2024-02-03 12:52] LABS: Albumin Level 3.1 gm/dl (3.4-5.0); BUN Creatinine Ratio 9.3 (10-20); Bilirubin Direct 0.1 mg/dl (0-0.2); Bilirubin,Total 0.4 mg/dl (0.2-1.0); Calcium 9.1 mg/dl (8.6-10.3); Creatinine Clr Calc Pharmacy 70.8 ml/min; Est GFR (African American) 90.3 ml/min; Est GFR (Non-African American) 77.9 ml/min; Magnesium 2.1 mg/dl (1.7-2.4); Potassium 5.2 mmol/L (3.5-5.1); Total Protein 7.5 gm/dl (6.0-8.3)
[2024-02-03] MEDS: PANTOprazole 40 MG in DEXTROSE 5% MINI-B 100 ML IV SCH (12:53)
[2024-02-03 12:55] LABS: INR 1.2 (0.9-1.1); Partial Thromboplastin Ratio 0.9; Partial Thromboplastin Time 23 Seconds (21-31); Prothrombin Time 12.4 Seconds (9.0-12.0)
[2024-02-03 12:57] LABS: Reticulocyte % 3.59 % (0.50-2.00)
[2024-02-03] MEDS: OPTIRAY 320 125ml IV ONE (13:09)
[2024-02-03 13:12] LABS: Basophils # (auto) 0.11 K/uL (0.00-0.20); Basophils % (auto) 0.3 %; Echinocytes 1+; Eosinophils # (auto) 0.02 K/uL (0.00-0.50); Eosinophils % (auto) 0.1 %; Immature Granulocytes # (auto) 1.71 K/uL (0.01-0.20); Immature Granulocytes % (auto) 5.4 %; Lymphocytes % (auto) 3.2 %; Monocytes # (auto) 1.84 K/uL (0.11-0.59); Monocytes % (auto) 5.8 %; Neutrophils # (auto) 26.85 K/uL (1.40-6.50); Neutrophils % (auto) 85.2 %; Polychromasia 1+
--- NOTE | 2024-02-03 13:32 | CT Scan Report ---
CT angio chest PE protocol CLINICAL HISTORY: hypoxia, hypotension, tachycardia, r/o PE TECHNIQUE: Multidetector row helical CT of the chest was performed with angiographic protocol. Turner l and sagittal reformations were obtained. Coronal and sagittal MIPS were obtained from the axial jaiden a set and were submitted for review. Automated dose lowering techniques and/or adjustment according to patient size were utilized for this exam. CT DOSE: 2549.93 mGy.cm Comparison: Comparison is made to CTA chest 02/03/2024 FINDINGS: Lungs and pleura: Atelectasis versus scarring is seen in the dependent portions of the lungs. Heart and pericardium: Heart size is normal. No pericardial effusion. Vessels: No evidence of pulmonary embolism. Mediastinum and radha: Unremarkable. Chest wall and lower neck: Unremarkable. Abdomen: Unremarkable. Bones: Unremarkable. IMPRESSION: No acute abnormality and in particular no evidence of pulmonary embolus. ACT 112: Negative or not required by law. Electronically signed by: Derick Khalil M.D. 02/03/2024 1:30 PM
[2024-02-03 13:33] LABS: Folate (Folic Acid),Ser orPlas 6.33 ng/ml (>5.38)
--- NOTE | 2024-02-03 13:34 | CT Scan Report ---
CT head/brain wo con CLINICAL HISTORY: 53 years-old Male with ams. Acute head trauma with altered mental status TECHNIQUE: Multiple axial CT images of the head were obtained without contrast. A dose lowering tech nique was utilized adhering to the principles of ALARA. COMPARISON: None. FINDINGS: No acute intracranial hemorrhage, midline shift, intracranial mass, hydrocephalus, territorial ischem ia or abnormal extra-axial collection. The calvarium is intact. The paranasal sinuses, mastoid air cells, and middle ear cavities are clear . IMPRESSION: No acute intracranial abnormality. ACT 112: Negative or not required by law. The above report was generated using voice recognition software. It may contain grammatical, syntax o r spelling errors. Electronically signed by: Delvis Holman M.D. 02/03/2024 1:33 PM
[2024-02-03 13:42] LABS: Phosphorus 5.2 mg/dl (2.5-4.9)
[2024-02-03 13:51] LABS: Troponin I High Sensitivity 7.2 pg/ml (0-20)
--- NOTE | 2024-02-03 13:51 | CT Scan Report ---
ABDOMEN AND PELVIS CT WITH IV CONTRAST CT DOSE: HISTORY: hypotensive, lower GIB TECHNIQUE: Multiaxial CT images of the abdomen and pelvis were performed following the use of intrave nous contrast. A dose lowering technique was utilized adhering to the principles of ALARA. COMPARISON STUDY: None. FINDINGS: The lung bases will be reported on the same day chest CTA. No pneumoperitoneum. No pneumato sis. No suspicious lytic or blastic osseous lesions. There is nondisplaced healing fracture through t he S3 level of the sacrum. No hepatic or splenic masses. The adrenal glands are unremarkable. Small g allstone. No gallbladder wall thickening. The main portal vein is patent. Punctate cortical calcifica tion within the left kidney. No hydronephrosis. There are few scattered punctate calcifications withi n the pancreas. There is a focal coarse calcifications within the tail the pancreas which results in pancreatic atrophy and mild dilatation of the main pancreatic duct at the distal tip of the tail. The main pancreatic duct at this location measures approximately 4 mm. Normal caliber abdominal aorta. M ildly enlarged inferior mesenteric and perirectal lymph nodes. Dominant right perirectal lymph node o n image 293 measures 12 mm. This is consistent with metastatic disease. There is a large heterogeneou s/necrotic mass within/surrounding the rectum which measures approximately 9.6 x 8.8 cm. This results in moderate narrowing of the rectal lumen without evidence for a bowel obstruction. This mass appear s to invade into the posterior prostate gland. The bladder is decompressed by Fox catheter. Normal appendix. IMPRESSION: 1. There is a large heterogeneous mass within/surrounding the rectum which measures approximately 9.6 x 8.8 cm. This results in moderate narrowing of the rectal lumen without evidence for a bowel obstru ction. This mass also invades into the posterior prostate gland. This likely represents a primary rec fernando neoplasm. A primary prostate malignancy remains in the differential diagnosis. 2. Perirectal and inferior mesenteric lymphadenopathy consistent with metastatic disease. 3. Focal coarse calcification at the distal tip of the pancreatic tail resulting in focal dilatation of main pancreatic duct and atrophy of the tip of the pancreatic tail 4. Cholelithiasis. 5. The bladder is decompressed by Fox catheter. ACT 112: Negative or not required by law. Electronically signed by: Gurvinder Young M.D. 02/03/2024 1:50 PM
--- NOTE | 2024-02-03 13:53 | XRay Report ---
XR chest 1V portable HISTORY: Sepsis COMPARISON: None. FINDINGS: The lungs are clear. Cardiac silhouette is normal in size. No pleural effusions. No pneumot horax. IMPRESSION: No acute process. ACT 112: Negative or not required by law. Electronically signed by: Gurvinder Young M.D. 02/03/2024 1:52 PM
[2024-02-03 14:00] LABS: Ferritin 153.6 ng/ml (8-388)
[2024-02-03] MEDS: PIPERACILLIN/TAZOBACTAM 4.5 GM/100 ML BAG IV ONE (15:15)
[2024-02-03] MEDS: ACETAMINOPHEN 1,000 MG/100 ML VIAL IV STA (15:40)
[2024-02-03] MEDS: PANTOPRAZOLE BOLUS/DRIP IV STA (15:41)
--- NOTE | 2024-02-03 15:48 | Critical Care Consultation ---
Date of Consultation February 03, 2024 Assessment & Plan (1) Severe sepsis with septic shock: (2) Lactic acidosis: (3) Rectal mass: (4) Anemia: (5) Hyperkalemia: Plan Impression: 53-year-old male with schizophrenia and hypertension with what appears to be colorectal malignancy with potential invasion into the prostate admitted with anemia, lactic acidosis, severe sepsis with septic shock and hyperkalemia. Recommendations: 1. Heme-onc: Likely rectal cancer. There are enlarged lymph nodes suggesting localized spread. He does not appear obstructed currently. Recommended the ER and primary service reach out to colorectal surgery at a tertiary facility to determine whether or not the patient would be best served by transfer to their facility as we do not have capabilities to manage this surgically locally. He will require outpatient evaluation including PET scanning and potentially MRI of the liver but these can be withheld currently until the patient stabilizes. Leukocytosis likely secondary to infection and will be trended. 2. Neuro: History of schizophrenia. Hold risperidone and venlafaxine currently 3. Cardiovascular: Severe sepsis with septic shock. The patient's received 2 L of crystalloid with improvement in his lactate. Will give an additional 2 L of crystalloid now as he may still be volume depleted. Continue to trend lactates. History of hypertension. His antihypertensives will be held. Do not see an indication for glucagon currently. Will update echocardiogram. 4. Pulmonary: No current issues. 5. Renal: Kidney function normal but the patient is hyperkalemic and hyponatremic. This may be secondary to his acidosis which is metabolic in etiology. Will treat acidosis with bicarb and insulin. Acidosis may also be aggravated by concomitant use of metformin. Given his acidosis and hyperkalemia, 1 dose of bicarb will be administered now. Hyponatremia may be hypovolemic hyponatremia and will give an additional 2 L of normal saline and reassess in a few hours 6. Endocrine: Continue Synthroid replacement. Would not use metformin. Glycemic control with insulin. 7. ID: Severe sepsis. He does not have signs of peritonitis however bacterial translocation of a GI source is likely. Patient received Zosyn in the emergency room which should be adequate and will be continued. Trend procalcitonin. 8. GI: N.p.o. for now. Continue bolus daily Protonix. Do not suspect GI bleed so does not need Protonix drip. Patient is critically ill with significant possibility of clinical deterioration and/or . A total of 65 minutes of critical care time was spent in evaluation management stabilization of this patient. History of Present Illness History of Present Illness Asked by ER and hospitalist to evaluate this patient with severe sepsis and septic shock likely due to advanced GI malignancy. History is obtained from discussion with the patient, review the electronic medical record, and interviewed the patient's sister who accompanies him at bedside. The patient is a 53-year-old male with a history of schizophrenia and hypertension who was referred by his primary doctor for unintentional weight loss of 40 pounds as well as weakness and declining functional status. Patient's history is not entirely clear. He was hypotensive on arrival to the emergency room with systolic blood pressures about 80 and a heart rate of 120. He appeared pale and clammy. He did not have melena or hematochezia but rectal exam did demonstrate maroon-colored stool. [id number] hemoglobin was 10 with a creatinine of 1.1 and acidosis. Patient received 1 unit of emergency packed red blood cells and received 2 L of crystalloid. His lactate was elevated. His blood pressure has been borderline but lactate has shown improvement. Patient was initially discussed with general surgery here who by report of the ER physician stated he would likely require surgical services not available at our institution as we do not have a dedicated colorectal team. They advised they would be happy to consult but did not see an indication for acute surgical intervention currently and certainly given the patient's critically ill status, surgery would be avoided unless it were urgently necessary. Tertiary colorectal referral has not yet been conducted. The patient does not report any chest pain or palpitations. No difficulty breathing. He denies nausea or vomiting. No abdominal pain. Fox catheter has been placed and is draining relatively clear urine Allergies Allergy/AdvReac Type Severity Reaction Status Date / Time aspirin Allergy Mild Unverified 08/10/09 03:49 PCN Allergy Mild Uncoded 01/06/06 16:09 Home Medications Medication Instructions Recorded Confirmed Type atorvastatin 40 mg tablet 40 mg PO UD 02/03/24 02/03/24 History carvedilol 12.5 mg tablet 12.5 mg PO UD 02/03/24 02/03/24 History fenofibrate nanocrystallized 48 mg 48 mg PO UD 02/03/24 02/03/24 History tablet hydrochlorothiazide 12.5 mg tablet 12.5 mg PO UD 02/03/24 02/03/24 History levothyroxine 50 mcg tablet 50 mcg PO UD 02/03/24 02/03/24 History lisinopril 5 mg tablet 5 mg PO UD 02/03/24 02/03/24 History metformin 500 mg tablet,extended 1,000 mg PO QAM 02/03/24 02/03/24 History release 24 hr risperidone 2 mg tablet 2 mg PO HS 02/03/24 02/03/24 History spironolactone 50 mg tablet 50 mg PO DAILY 02/03/24 02/03/24 History venlafaxine 37.5 mg 37.5 mg PO QAM 02/03/24 02/03/24 History capsule,extended release 24 hr (Effexor XR) venlafaxine 75 mg capsule,extended 75 mg PO DAILY 02/03/24 02/03/24 History release 24 hr (Effexor XR) Patient History Social History Feels Safe at Home: Yes Review of Systems Review of Systems: Unobtainable due to mental health condition Physical Exam Constitutional: + ill appearing and + thin; not in distr ess Pale Neck: trachea midline, no thyromegaly Respiratory: normal respiratory effort, lungs clear to auscultation Cardiovascular: Rate/Rhythm: regular rate and + tachycardic Heart Sounds: normal S1 and normal S2; no murmur Extremities: no edema Gastrointestinal (Abdomen): normal bowel sounds, soft, nontender, no hepatosplenomegaly Musculoskeletal: Extremities: extremities normal to inspection Skin: no rashes, warm and dry Neurologic: Mild tremors Lymphatic: no cervical lymphadenopathy Results & Data Results & Data Vital Signs (Past 12 Hours) Vital Signs Temp Pulse Pulse Resp BP BP Pulse Ox 02/03/24 15:15 117 H 28 H 93/60 L 100 02/03/24 15:03 36.6 C 115 H 24 86/64 L 100 02/03/24 14:33 36.6 C 118 H 24 80/59 L 100 02/03/24 14:18 36.7 C 117 H 24 80/63 L 100 02/03/24 14:01 36.5 C 117 H 24 87/59 L 100 02/03/24 13:13 120 H 26 H 82/48 L 100 02/03/24 13:12 119 H 26 H 82/48 L 100 02/03/24 12:39 122 H 17 90/54 L 99 02/03/24 12:17 129 H 02/03/24 12:12 137 H 28 H 81/52 L 02/03/24 12:01 153 H 28 H 77/40 L 02/03/24 11:58 67/46 L 02/03/24 11:51 35.5 C L 20 78/47 L 85 L O2 Del Method 02/03/24 15:15 Room Air 02/03/24 15:03 02/03/24 14:33 02/03/24 14:18 02/03/24 14:01 02/03/24 13:13 Room Air 02/03/24 13:12 02/03/24 12:39 02/03/24 12:17 02/03/24 12:12 02/03/24 12:01 02/03/24 11:58 02/03/24 11:51 Room Air Critical Care Results & Data Vital Signs (Past 12 Hours) Vital Signs Temp Pulse Pulse Resp BP BP Pulse Ox 02/03/24 15:15 117 H 28 H 93/60 L 100 02/03/24 15:03 36.6 C 115 H 24 86/64 L 100 02/03/24 14:33 36.6 C 118 H 24 80/59 L 100 02/03/24 14:18 36.7 C 117 H 24 80/63 L 100 02/03/24 14:01 36.5 C 117 H 24 87/59 L 100 02/03/24 13:13 120 H 26 H 82/48 L 100 02/03/24 13:12 119 H 26 H 82/48 L 100 02/03/24 12:39 122 H 17 90/54 L 99 02/03/24 12:17 129 H 02/03/24 12:12 137 H 28 H 81/52 L 02/03/24 12:01 153 H 28 H 77/40 L 02/03/24 11:58 67/46 L 02/03/24 11:51 35.5 C L 20 78/47 L 85 L O2 Del Method 02/03/24 15:15 Room Air 02/03/24 15:03 02/03/24 14:33 02/03/24 14:18 02/03/24 14:01 02/03/24 13:13 Room Air 02/03/24 13:12 02/03/24 12:39 02/03/24 12:17 02/03/24 12:12 02/03/24 12:01 02/03/24 11:58 02/03/24 11:51 Room Air Lab & Micro Results (Past 24 Hours) RBC 4.00 M/uL (4.70-6.10) L 02/03/24 WBC 31.53 K/ul (4.8-10.8) H* 02/03/24 Hgb 9.3 g/dl (14.0-18.0) L 02/03/24 Hct 30.3 % (42.0-52.0) L 02/03/24 MCV 75.8 fL (80.0-100.0) L 02/03/24 MCH 23.3 pg (25.0-34.0) L 02/03/24 MCHC 30.7 g/dL (32.0-36.0) L 02/03/24 RDW Standard Deviation 46.8 fL (36.4-46.3) H 02/03/24 RDW Coefficient of Variation 17.3 % (11.5-14.5) H 02/03/24 Plt Count 636 K/uL (130-400) H 02/03/24 MPV 8.3 fL (9.4-12.4) L 02/03/24 Neutrophils (%) (Auto) 85.2 % 02/03/24 Lymphocytes (%) (Auto) 3.2 % 02/03/24 Monocytes # (Auto) 1.84 K/uL (0.11-0.59) H 02/03/24 Eosinophils # (Auto) 0.02 K/uL (0.00-0.50) 02/03/24 Immature Granulocyte % (Auto) 5.4 % 02/03/24 Neutrophils # (Auto) 26.85 K/uL (1.40-6.50) H 02/03/24 Lymphocytes # (Auto) 1.00 K/uL (1.20-3.40) L 02/03/24 Monocytes # (Auto) 1.84 K/uL (0.11-0.59) H 02/03/24 Eosinophils # (Auto) 0.02 K/uL (0.00-0.50) 02/03/24 Basophils # (Auto) 0.11 K/uL (0.00-0.20) 02/03/24 Immature Granulocyte # (Auto) 1.71 K/uL (0.01-0.20) H 02/02 Polychromasia 1+ 02/03/24 Echinocytes 1+ 02/03/24 Na 124 mmol/L (136-145) L 02/03/24 K 5.2 mmol/L (3.5-5.1) H 02/03/24 Cl 90 mmol/L (98-107) L 02/03/24 CO2 17 mmol/L (21-32) L 02/03/24 Anion Gap 17 (3-11) H 02/03/24 BUN 10 mg/dl (6-23) 02/03/24 Creatinine 1.08 mg/dl (0.6-1.4) 02/03/24 Estimated GFR ( Amer) 90.3 ml/min 02/03/24 Estimated GFR (Non-Af Amer) 77.9 ml/min 02/03/24 BUN/Creatinine Ratio 9.3 (10-20) L 02/03/24 Glu 378 mg/dl (70-99(Fasting)) H* 02/03/24 Ca 9.1 mg/dl (8.6-10.3) 02/03/24 Phosphorus Level 5.2 mg/dl (2.5-4.9) H 02/03/24 Total Bilirubin 0.4 mg/dl (0.2-1.0) 02/03/24 Direct Bilirubin 0.1 mg/dl (0-0.2) 02/03/24 AST 17 U/L (13-39) 02/03/24 ALT 24 U/L (7-52) 02/03/24 Alkaline Phosphatase 94 U/L (34-104) 02/03/24 TP 7.5 gm/dl (6.0-8.3) 02/03/24 Albumin 3.1 gm/dl (3.4-5.0) L 02/03/24 Mg 2.1 mg/dl (1.7-2.4) 02/03/24 12:08 Calcium Level 9.1 mg/dl (8.6-10.3) 02/03/24 12:08 Prothromb Time International Ratio 1.2 (0.9-1.1) H 02/03/24 12 :08 Venous Blood pH 7.27 (7.36-7.41) L 02/03/24 12:08 Venous Blood Partial Pressure CO2 35 mmHg (38-50) L 02/03/24 12 :08 Venous Blood Partial Pressure O2 20 mmHg 02/03/24 12:08 Venous Blood HCO3 16 mmol/L 02/03/24 12:08 Venous Blood Base Excess -9.9 mEq/L 02/03/24 12:08 Venous Blood Oxygen Saturation < 60.0 % 02/03/24 12:08 Diagnostic Findings (Past 24 Hours) Chest X-Ray 02/03/24 12:04 XR chest 1V portable HISTORY: Sepsis COMPARISON: None. FINDINGS: The lungs are clear. Cardiac silhouette is normal in size. No pleural effusions. No pneumothorax. IMPRESSION: No acute process. ACT 112: Negative or not required by law. Electronically signed by: Gurvinder Young M.D. 02/03/2024 1:52 PM Abdomen/Pelvis CT 02/03/24 12:[address] WITH IV CONTRAST CT DOSE: HISTORY: hypotensive, lower GIB TECHNIQUE: Multiaxial CT images of the abdomen and pelvis were performed following the use of intravenous contrast. A dose lowering technique was utilized adhering to the principles of ALARA. COMPARISON STUDY: None. FINDINGS: The lung bases will be reported on the same day chest CTA. No pneumoperitoneum. No pneumatosis. No suspicious lytic or blastic osseous lesions. There is nondisplaced healing fracture through the S3 level of the sacrum. No hepatic or splenic masses. The adrenal glands are unremarkable. Small gallstone. No gallbladder wall thickening. The main portal vein is patent. Punctate cortical calcification within the left kidney. No hydronephrosis. There are few scattered punctate calcifications within the pancreas. There is a focal coarse calcifications within the tail the pancreas which results in pancreatic atrophy and mild dilatation of the main pancreatic duct at the distal tip of the tail. The main pancreatic duct at this location measures approximately 4 mm. Normal caliber abdominal aorta. Mildly enlarged inferior mesenteric and perirectal lymph nodes. Dominant right perirectal lymph node on image 293 measures 12 mm. This is consistent with metastatic disease. There is a large heterogeneous/necrotic mass within/surrounding the rectum which measures approximately 9.6 x 8.8 cm. This results in moderate narrowing of the rectal lumen without evidence for a bowel obstruction. This mass appears to invade into the posterior prostate gland. The bladder is decompressed by Fox catheter. Normal appendix. IMPRESSION: 1. There is a large heterogeneous mass within/surrounding the rectum which m easures approximately 9.6 x 8.8 cm. This results in moderate narrowing of the rectal lumen without evidence for a bowel obstruction. This mass also invades into the posterior prostate gland. 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 A primary prostate malignancy remains in the differential diagnosis. 2. Perirectal and inferior mesenteric lymphadenopathy consistent with metastatic disease. 3. Focal coarse calcification at the distal tip of the pancreatic tail resulting in focal dilatation of main pancreatic duct and atrophy of the tip of the pancreatic tail 4. Cholelithiasis. 5. The bladder is decompressed by Fox catheter. ACT 112: Negative or not required by law. Electronically signed by: Gurvinder Young M.D. 02/03/2024 1:50 PM Chest CTA 02/03/24 12:22 CT angio chest PE protocol CLINICAL HISTORY: hypoxia, hypotension, tachycardia, r/o PE TECHNIQUE: Multidetector row helical CT of the chest was performed with angiographic protocol. Coronal and sagittal reformations were obtained. Coronal and sagittal MIPS were obtained from the axial data set and were submitted for review. Automated dose lowering techniques and/or adjustment according to patient size were utilized for this exam. CT DOSE: 2549.93 mGy.cm Comparison: Comparison is made to CTA chest 02/03/2024 FINDINGS: Lungs and pleura: Atelectasis versus scarring is seen in the dependent portions of the lungs. Heart and pericardium: Heart size is normal. No pericardial effusion. Vessels: No evidence of pulmonary embolism. Mediastinum and radha: Unremarkable. Chest wall and lower neck: Unremarkable. Abdomen: Unremarkable. Bones: Unremarkable. IMPRESSION: No acute abnormality and in particular no evidence of pulmonary embolus. ACT 112: Negative or not required by law. Electronically signed by: Derick Khalil M.D. 02/03/2024 1:[address] 02/03/24 12:22 CT head/brain wo con CLINICAL HISTORY: 53 years-old Male with ams. Acute head trauma with altered mental status TECHNIQUE: Multiple axial CT images of the head were obtained without contrast. A dose lowering technique was utilized adhering to the principles of ALARA. COMPARISON: None. FINDINGS: No acute intracranial hemorrhage, midline shift, intracranial mass, hydrocephalus, territorial ischemia or abnormal extra-axial collection. The calvarium is intact. The paranasal sinuses, mastoid air cells, and middle ear cavities are clear. IMPRESSION: No acute intracranial abnormality. ACT 112: Negative or not required by law. The above report was generated using voice recognition software. It may contain grammatical, syntax or spelling errors. Electronically signed by: Delvis Holman M.D. 02/03/2024 1:33 PM I & O Totals 24 Hours 02/02/24 02/03/24 02/04/24 06:59 06:59 06:59 Intake Total 2120 / 2120 Output Total 1450 / 1450 Balance 670 / 670 Cumulative 02/03/24 11:49 thru 02/03/24 15:39 Intake Total 2120 Output Total 1450 Balance 670 RT Ventilator Mngmt (Last Documented) Ventilator Ordered Settings Respiratory Rate 28 02/03/24 15:15 Ventilator - PT Measurements Respiratory Rate 28 Coding Level of Care Code 23094 CRITICAL CARE 1ST 30-74M Diagnoses Severe sepsis with septic shock A41.9; R65.21 Lactic acidosis E87.20 Rectal mass K62.89 Anemia D64.9 Hyperkalemia E87.5
[2024-02-03] MEDS: SODIUM BICARB 8.4% INJ 50 MEQ/50 ML SYR IV STA (15:52)
[2024-02-03] MEDS ORDERED: PHARMACY GLYCEMIC MGMT CONSULT PRN (15:54)
--- NOTE | 2024-02-03 16:19 | Surgery Consultation ---
Date of Consultation February 03, 2024 Assessment & Plan (1) Rectal mass: On exam, abd soft , non tender to palpation, pallor, patient needs to be hemodynamically stabilized, patient and family had discussion with ER and soda maker and would like the patient to be transferred to a tertiary care center, if able. General surgery agrees with this plan, as he is not a surgical candidate at this facility and would be better served if transferred out. However if transfer is unsuccessful we are willing to follow the patient along while he is in house. Discussed patient with system controller surgeon Dr. Berumen. History of Present Illness Reason for Consultation: rectal mass Requesting Physician: Dr. Schaefer History of Present Illness Patient is a pleasant 53 yo male with PMH schizophrenia, HTN, DM2, Hypothyroidism, HLD that presented to the [facility] accompanied with his sister. He reports a 40lb weight loss since July and feeling unwell. Over the last few weeks he reports that he started feeling worse with dizziness upon standing, diarrhea, weakness, and developed a tremor. Upon arrival to the ER he was found to be hypotensive, tachycardiac, and had a low temperature. He underwent a CT of the abd/pelvis which is reading concerns for a rectal mass that invades into the prostate gland. WBC elevated at 31, electrolyte abnormalities, with a lactate of 9. General surgery was consulted for recommendations. Patient denies prior abdominal surgery, or colonoscopy, denies abd pain , blood in stool, SOB, CP. He currently lives at home with his parents. Allergies Allergy/AdvReac Type Severity Reaction Status Date / Time aspirin Allergy Mild Unverified 08/10/09 03:49 PCN Allergy Mild Uncoded 01/06/06 16:09 Home Medications Medication Instructions Recorded Confirmed Type atorvastatin 40 mg tablet 40 mg PO UD 02/03/24 02/03/24 History carvedilol 12.5 mg tablet 12.5 mg PO UD 02/03/24 02/03/24 History fenofibrate nanocrystallized 48 mg 48 mg PO UD 02/03/24 02/03/24 History tablet hydrochlorothiazide 12.5 mg tablet 12.5 mg PO UD 02/03/24 02/03/24 History levothyroxine 50 mcg tablet 50 mcg PO UD 02/03/24 02/03/24 History lisinopril 5 mg tablet 5 mg PO UD 02/03/24 02/03/24 History metformin 500 mg tablet,extended 1,000 mg PO QAM 02/03/24 02/03/24 History release 24 hr risperidone 2 mg tablet 2 mg PO HS 02/03/24 02/03/24 History spironolactone 50 mg tablet 50 mg PO DAILY 02/03/24 02/03/24 History venlafaxine 37.5 mg 37.5 mg PO QAM 02/03/24 02/03/24 History capsule,extended release 24 hr (Effexor XR) venlafaxine 75 mg capsule,extended 75 mg PO DAILY 02/03/24 02/03/24 History release 24 hr (Effexor XR) Patient History Social History Feels Safe at Home: Yes Review of Systems Constitutional: + weakness and + weight loss; no fever a nd no chills Respiratory: no dyspnea Cardiovascular: + lightheadedness; no chest pain Gastrointestinal: + diarrhea/loose stools; no abdominal pa in, no bloating, no nausea and no vomiting Genitourinary: no problem reported Musculoskeletal: + muscle weakness Integumentary: no rash Physical Exam Constitutional: + ill appearing and cooperative Respiratory: normal respiratory effort and able to speak in complete sentences; no respiratory distress Cardiovascular: Rate/Rhythm: + tachycardic Gastrointestinal (Abdomen): Inspection/Auscultation: abdomen not distended Percussion/Palpation: abdomen soft; abdomen nontender Skin: + pallor Psychiatric: Orientation: alert and oriented x 3 Results & Data Vital Signs (Past 12 Hours) Vital Signs Temp Pulse Pulse Resp BP BP Pulse Ox 02/03/24 15:45 87/59 L 02/03/24 15:30 118 H 17 89/58 L 100 02/03/24 15:15 118 H 16 93/60 L 100 02/03/24 15:15 117 H 28 H 93/60 L 100 02/03/24 15:06 119 H 32 H 89/64 L 100 02/03/24 15:03 97.9 F 115 H 24 86/64 L 100 02/03/24 15:02 89/64 L 02/03/24 15:00 98/63 L 02/03/24 14:45 118 H 31 H 96/64 L 100 02/03/24 14:33 97.9 F 118 H 24 80/59 L 100 02/03/24 14:18 98.1 F 117 H 24 80/63 L 100 02/03/24 14:01 97.7 F 117 H 24 87/59 L 100 02/03/24 13:13 120 H 26 H 82/48 L 100 02/03/24 13:12 119 H 26 H 82/48 L 100 02/03/24 12:39 122 H 17 90/54 L 99 02/03/24 12:17 129 H 02/03/24 12:12 137 H 28 H 81/52 L 02/03/24 12:01 153 H 28 H 77/40 L 02/03/24 11:58 67/46 L 02/03/24 11:51 95.9 F L 20 78/47 L 85 L O2 Del Method 02/03/24 15:45 02/03/24 15:30 02/03/24 15:15 02/03/24 15:15 Room Air 02/03/24 15:06 02/03/24 15:03 02/03/24 15:02 02/03/24 15:00 02/03/24 14:45 02/03/24 14:33 02/03/24 14:18 02/03/24 14:01 02/03/24 13:13 Room Air 02/03/24 13:12 02/03/24 12:39 02/03/24 12:17 02/03/24 12:12 02/03/24 12:01 02/03/24 11:58 02/03/24 11:51 Room Air [phone] Scan Report Patient: KEVIN KELLER Admit Date: 02/03/24 MR#: [id number] Address1: [address] [facility] Acct ID:[id number] Address2: Date: 1970 [facility] Zip: [place] [id number] Age: 53 Location: ED Sex: M Room/Bed: Att Phy: Diagnosis: LOW BLOOD PRESSURE, LOW OXYGEN, SHAKES, NEAR SYNCO Federica Phy: Gen Morgan PA-C Service Date: 02/03/24 Fam Phy: Interpreting Phy: Gurvinder Young MDAkane Phy: Ordering Phy: Elbert Schaefer M.D. cc: ~ ABDOMEN AND PELVIS CT WITH IV CONTRAST CT DOSE: HISTORY: hypotensive, lower GIB TECHNIQUE: Multiaxial CT images of the abdomen and pelvis were performed following the use of intravenous contrast. A dose lowering technique was utilized adhering to the principles of ALARA. COMPARISON STUDY: None. FINDINGS: The lung bases will be reported on the same day chest CTA. No pneumoperitoneum. No pneumatosis. No suspicious lytic or blastic osseous lesions. There is nondisplaced healing fracture through the S3 level of the sacrum. No hepatic or splenic masses. The adrenal glands are unremarkable. Small gallstone. No gallbladder wall thickening. The main portal vein is patent. Punctate cortical calcification within the left kidney. No hydronephrosis. There are few scattered punctate calcifications within the pancreas. There is a focal coarse calcifications within the tail the pancreas which results in pancreatic atrophy and mild dilatation of the main pancreatic duct at the distal tip of the tail. The main pancreatic duct at this location measures approximately 4 mm. Normal caliber abdominal aorta. Mildly enlarged inferior mesenteric and pe rirectal lymph nodes. Dominant right perirectal lymph node on image 293 measures 12 mm. This is consistent with metastatic disease. There is a large heterogeneous/necrotic mass within/surrounding the rectum which measures approximately 9.6 x 8.8 cm. This results in moderate narrowing of the rectal lumen without evidence for a bowel obstruction. This mass appears to invade into the posterior prostate gland. The bladder is decompressed by Fox catheter. Normal appendix. IMPRESSION: 1. There is a large heterogeneous mass within/surrounding the rectum which measures approximately 9.6 x 8.8 cm. This results in moderate narrowing of the rectal lumen without evidence for a bowel obstruction. This mass also invades into the posterior prostate gland. 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 A primary prostate malignancy remains in the differential diagnosis. 2. Perirectal and inferior mesenteric lymphadenopathy consistent with metastatic disease. 3. Focal coarse calcification at the distal tip of the pancreatic tail resulting in focal dilatation of main pancreatic duct and atrophy of the tip of the pancreatic tail 4. Cholelithiasis. 5. The bladder is decompressed by Fox catheter. ACT 112: Negative or not required by law. Electronically signed by: Gurvinder Young M.D. 02/03/2024 1:50 PM Dictated: 02/03/24 1333 Transcribed: 02/03/24 1333 Results CBC w Diff Results: RBC 4.00 M/uL (4.70-6.10) L 02/03/24 WBC 31.53 K/ul (4.8-10.8) H* 02/03/24 Hgb 9.3 g/dl (14.0-18.0) L 02/03/24 Hct 30.3 % (42.0-52.0) L 02/03/24 MCV 75.8 fL (80.0-100.0) L 02/03/24 MCH 23.3 pg (25.0-34.0) L 02/03/24 MCHC 30.7 g/dL (32.0-36.0) L 02/03/24 RDW Standard Deviation 46.8 fL (36.4-46.3) H 02/03/24 RDW Coefficient of Variation 17.3 % (11.5-14.5) H 02/03/24 Plt Count 636 K/uL (130-400) H 02/03/24 MPV 8.3 fL (9.4-12.4) L 02/03/24 Neutrophils (%) (Auto) 85.2 % 02/03/24 Lymphocytes (%) (Auto) 3.2 % 02/03/24 Monocytes # (Auto) 1.84 K/uL (0.11-0.59) H 02/03/24 Eosinophils # (Auto) 0.02 K/uL (0.00-0.50) 02/03/24 Immature Granulocyte % (Auto) 5.4 % 02/03/24 Neutrophils # (Auto) 26.85 K/uL (1.40-6.50) H 02/03/24 Lymphocytes # (Auto) 1.00 K/uL (1.20-3.40) L 02/03/24 Monocytes # (Auto) 1.84 K/uL (0.11-0.59) H 02/03/24 Eosinophils # (Auto) 0.02 K/uL (0.00-0.50) 02/03/24 Basophils # (Auto) 0.11 K/uL (0.00-0.20) 02/03/24 Immature Granulocyte # (Auto) 1.71 K/uL (0.01-0.20) H 02/02 Polychromasia 1+ 02/03/24 Echinocytes 1+ 02/03/24 Results CMP Results: Na 124 mmol/L (136-145) L 02/03/24 K 5.2 mmol/L (3.5-5.1) H 02/03/24 Cl 90 mmol/L (98-107) L 02/03/24 CO2 17 mmol/L (21-32) L 02/03/24 Anion Gap 17 (3-11) H 02/03/24 BUN 10 mg/dl (6-23) 02/03/24 Creatinine 1.08 mg/dl (0.6-1.4) 02/03/24 Estimated GFR ( Amer) 90.3 ml/min 02/03/24 Estimated GFR (Non-Af Amer) 77.9 ml/min 02/03/24 BUN/Creatinine Ratio 9.3 (10-20) L 02/03/24 Glu 378 mg/dl (70-99(Fasting)) H* 02/03/24 Ca 9.1 mg/dl (8.6-10.3) 02/03/24 Phosphorus Level 5.2 mg/dl (2.5-4.9) H 02/03/24 Total Bilirubin 0.4 mg/dl (0.2-1.0) 02/03/24 Direct Bilirubin 0.1 mg/dl (0-0.2) 02/03/24 AST 17 U/L (13-39) 02/03/24 ALT 24 U/L (7-52) 02/03/24 Alkaline Phosphatase 94 U/L (34-104) 02/03/24 TP 7.5 gm/dl (6.0-8.3) 02/03/24 Albumin 3.1 gm/dl (3.4-5.0) L 02/03/24 PG Care Time/CCT Total # of Minutes Spent Total Time Spent with Patient: Total time spent is greater than 50% in coordination of care (as documented) at patient's floor/unit and/or counseling patient: Coding Level of Care Code 98287 INT INP/OBS CARE 2/55MIN Diagnoses Rectal mass K62.89
[2024-02-03] MEDS: NovoLIN-R INSULIN PER UNIT CHARGE IV STA (16:20)
[2024-02-03] MEDS: DEXTROSE 50% 50 ML SYRINGE IV ONE (16:28)
[2024-02-03] MEDS ORDERED: DEXTROSE 50% 50 ML SYRINGE IV PRN (16:45)
[2024-02-03] MEDS ORDERED: CARBOHYDRATES FOR HYPOGLYCEMIA PO PRN (16:45)
[2024-02-03] MEDS ORDERED: GLUCAGON FOR INJ 1 MG VIAL IM PRN (16:45)
[2024-02-03] MEDS ORDERED: GLUCOSE 10 TAB/TUBE PO PRN (16:45)
[2024-02-03] MEDS ORDERED: GLUCOSE 40% GEL 15 GM TUBE PO PRN (16:45)
[2024-02-03] MEDS ORDERED: STAT IV Infusion **Titration per Protocol STA (17:03)
[2024-02-03] MEDS: NOREPINEPHRINE/D5W 4 MG/250 ML PLCT IV SCH (17:07)
--- NOTE | 2024-02-03 17:14 | Hospitalist Consultation ---
Date of Consultation February 03, 2024 Assessment & Plan (1) Schizophrenia: (2) Hyponatremia: (3) Severe sepsis with septic shock: (4) Rectal mass: (5) Hypothyroid: History of Present Illness History of Present Illness Brian is a 53-year-old male with past medical history of schizophrenia, hypertension who presents to the ER for evaluation of 40 pound weight loss over the preceding 6 months. Patient saw his PCP but appears severely ill and was referred to the ER. ER initial evaluation revealed hemoglobin of 10.5, metabolic acidosis bicarb of 17, VBG 7.2 /20/16, anion gap of 20. Patient was hypotensive 78/47, tachycardic to 120s, and thermic in the ER. Pale, clammy in the ER with rigors. Rectal exam was with maroon-colored stool. EKG: Sinus tachycardia rate 153. Leukocytosis of 31.5 With granulocytic expansion Hyponatremic 124, potassium 5.2, creatinine 1.08 Lactate 9.1 downtrending to 6.4 post fluids CTA: No evidence of PE, no acute abnormality. No evidence of pneumonia CTA/P: Heterogenous mass surrounding the rectum 9.6 x 8.8 cm with rectal narrowing. No evidence of bowel obstruction. 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 Primary prostatic malignancy within the differential. Perirectal and inferior mesenteric lymphadenopathy consistent with metastatic disease. Pancreatic dilation is noted with calcification of the distal tip of pancreatic tail resulting in pancreatic duct dilation and atrophy. Cholelithiasis. Chest x-ray: No acute finding CThead: No acute finding Ferritin 153, UIBC 132/low suggestive of anemia of chronic disease Initially consulted for admission. Patient has a rectal mass likely malignant, with maroon blood perirectally and presumed acute anemiaLikely from GI source/translocation. CTA without acute findings. Leukocytosis greater than 30, Pro-Jim elevated, tachycardic, lactate 9.1 downtrending post fluids to 6.4 consistent with severe sepsis. No creatinine or transaminitis suggestive of multiorgan dysfunction. Due to likelihood of rectal mass involvement with acute bleeding patient was recommended for transfer to tertiary care where colorectal surgery was available. Was reviewed by the ICU, agree with transfer for definitive management. Patient subsequently has received 4 L of crystalloid, 500 cc of blood with second unit pending but remains hypotensive with a MAP of 5962. At 58 at bedside reassessment. Levophed started. Central line to be placed by ER. REpeat labs pending. Seen at bedside. He reports that he has not followed with a doctor in many months but has been losing strengthAnd weight for many months. Up to 40 pounds of weight loss, becoming thin and cachectic over the preceding few months. In the last 2 weeks has been much worse and much more weak. In the last day has been pale, clammy, and sister thinks he may have been febrile at home. He and family deny any bright red blood per rectum, melena, or black/coffee-ground bowel movements but patient does have maroon-colored stool in the rectum on exam. He endorsed abdominal distention but denies pain. Denies chest pain. Does want full workup and treatment for potential cancer. Denies prior GI bleeds. He reports she has a history of diabetes, high blood pressure, hypothyroidism, and schizophrenia. Schizophrenia reportedly well-controlled on risperidone. Denies past cardiac history at the bedside 1 can of chew tobacco use every other day. Denies alcohol use. Dors allergy to aspirin and penicillin, rash. Denies other allergies. Endorses a history of colorectal cancer in a paternal grandfather, otherwise denies cancer history. Full code. Allergies Allergy/AdvReac Type Severity Reaction Status Date / Time aspirin Allergy Mild Unverified 08/10/09 03:49 PCN Allergy Mild Uncoded 01/06/06 16:09 Home Medications Medication Instructions Recorded Confirmed Type atorvastatin 40 mg tablet 40 mg PO UD 02/03/24 02/03/24 History carvedilol 12.5 mg tablet 12.5 mg PO UD 02/03/24 02/03/24 History fenofibrate nanocrystallized 48 mg 48 mg PO UD 02/03/24 02/03/24 History tablet hydrochlorothiazide 12.5 mg tablet 12.5 mg PO UD 02/03/24 02/03/24 History levothyroxine 50 mcg tablet 50 mcg PO UD 02/03/24 02/03/24 History lisinopril 5 mg tablet 5 mg PO UD 02/03/24 02/03/24 History metformin 500 mg tablet,extended 1,000 mg PO QAM 02/03/24 02/03/24 History release 24 hr risperidone 2 mg tablet 2 mg PO HS 02/03/24 02/03/24 History spironolactone 50 mg tablet 50 mg PO DAILY 02/03/24 02/03/24 History venlafaxine 37.5 mg 37.5 mg PO QAM 02/03/24 02/03/24 History capsule,extended release 24 hr (Effexor XR) venlafaxine 75 mg capsule,extended 75 mg PO DAILY 02/03/24 02/03/24 History release 24 hr (Effexor XR) Patient History Medical History (Updated 02/03/24 @ 19:48 by Tristan Somers MD) Hypothyroid Social History Feels Safe at Home: Yes Results & Data Results & Data Vital Signs (Past 12 Hours) Vital Signs Temp Pulse Pulse Resp BP BP Pulse Ox 02/03/24 17:03 106 H 23 81/52 L 100 02/03/24 16:39 36.5 C 108 H 20 83/56 L 100 02/03/24 16:30 102 H 02/03/24 16:24 36.6 C 100 H 27 H 87/51 L 100 02/03/24 16:24 100 02/03/24 16:21 99 H 19 88/55 L 100 02/03/24 16:07 36.5 C 100 H 29 H 94/67 L 100 02/03/24 15:57 109 H 27 H 94/67 L 99 02/03/24 15:51 117 H 27 H 81 L 02/03/24 15:45 87/59 L 02/03/24 15:30 118 H 17 89/58 L 100 02/03/24 15:15 118 H 16 93/60 L 100 02/03/24 15:15 117 H 28 H 93/60 L 100 02/03/24 15:06 119 H 32 H 89/64 L 100 02/03/24 15:03 36.6 C 115 H 24 86/64 L 100 02/03/24 15:02 89/64 L 02/03/24 15:00 98/63 L 02/03/24 14:45 118 H 31 H 96/64 L 100 02/03/24 14:33 36.6 C 118 H 24 80/59 L 100 02/03/24 14:18 36.7 C 117 H 24 80/63 L 100 02/03/24 14:01 36.5 C 117 H 24 87/59 L 100 02/03/24 13:13 120 H 26 H 82/48 L 100 02/03/24 13:12 119 H 26 H 82/48 L 100 02/03/24 12:39 122 H 17 90/54 L 99 02/03/24 12:17 129 H 02/03/24 12:12 137 H 28 H 81/52 L 02/03/24 12:01 153 H 28 H 77/40 L 02/03/24 11:58 67/46 L 02/03/24 11:51 35.5 C L 20 78/47 L 85 L O2 Del Method 02/03/24 17:03 Room Air 02/03/24 16:39 02/03/24 16:30 02/03/24 16:24 02/03/24 16:24 Room Air 02/03/24 16:21 02/03/24 16:07 02/03/24 15:57 02/03/24 15:51 02/03/24 15:45 02/03/24 15:30 02/03/24 15:15 02/03/24 15:15 Room Air 02/03/24 15:06 02/03/24 15:03 02/03/24 15:02 02/03/24 15:00 02/03/24 14:45 02/03/24 14:33 02/03/24 14:18 02/03/24 14:01 02/03/24 13:13 Room Air 02/03/24 13:12 02/03/24 12:39 02/03/24 12:17 02/03/24 12:12 02/03/24 12:01 02/03/24 11:58 02/03/24 11:51 Room Air PG Care Time/CCT Total # of Minutes Spent Total Time Spent with Patient: Total time spent is greater than 50% in coordination of care (as documented) at patient's floor/unit and/or counseling patient: Coding Diagnoses Schizophrenia F20.9 Hyponatremia E87.1 Severe sepsis with septic shock A41.9; R65.21 Rectal mass K62.89 Hypothyroid E03.9
[2024-02-03 17:56] LABS: Base Excess VBG -5.3 mEq/L; HCO3 VBG 19 mmol/L; Oxygen Saturation VBG 67.8 %; PCO2 VBG 33 mmHg (38-50); PO2 VBG 32 mmHg; pH VBG 7.37 (7.36-7.41)
[2024-02-03 18:08] LABS: BUN Creatinine Ratio 12.9 (10-20); Calcium 7.4 mg/dl (8.6-10.3); Creatinine Clr Calc Pharmacy 109.3 ml/min; Est GFR (African American) 124.9 ml/min; Est GFR (Non-African American) 107.7 ml/min; Potassium 3.9 mmol/L (3.5-5.1)
[2024-02-03 18:23] LABS: Fibrinogen 496 mg/dl (184-400)
[2024-02-03 19:29] LABS: Base Excess VBG -3.8 mEq/L; HCO3 VBG 19 mmol/L; Oxygen Saturation VBG 66.9 %; PCO2 VBG 27 mmHg (38-50); PO2 VBG 35 mmHg; pH VBG 7.45 (7.36-7.41)
[2024-02-03] MEDS: SODIUM CHLORIDE 0.45 % 1,000 ML IV SCH (19:38)
[2024-02-03] MEDS: DAPTOmycin 250 MG in SYRINGE 0 ML IV ONE (19:38)
[2024-02-03 19:49] LABS: Albumin Globulin Ratio 0.7 (0.9-2); Albumin Level 2.4 gm/dl (3.4-5.0); BUN Creatinine Ratio 13.2 (10-20); Bilirubin,Total 2.6 mg/dl (0.2-1.0); Calcium 7.9 mg/dl (8.6-10.3); Creatinine Clr Calc Pharmacy 112.5 ml/min; Est GFR (African American) 126.4 ml/min; Globulin 3.3 gm/dl (2.5-4.0); Potassium 3.7 mmol/L (3.5-5.1); Total Protein 5.7 gm/dl (6.0-8.3)
[2024-02-03 19:58] LABS: Basophils # (auto) 0.07 K/uL (0.00-0.20); Basophils % (auto) 0.4 %; Eosinophils # (auto) 0.09 K/uL (0.00-0.50); Eosinophils % (auto) 0.5 %; Hematocrit (blood only) 28.9 % (42.0-52.0); Hemoglobin 9.3 g/dl (14.0-18.0); Immature Granulocytes # (auto) 0.71 K/uL (0.01-0.20); Immature Granulocytes % (auto) 3.8 %; Lymphocytes # (auto) 0.77 K/uL (1.20-3.40); Lymphocytes % (auto) 4.1 %; Mean Corpuscular Hgb Conc 32.2 g/dL (32.0-36.0); Mean Corpuscular Volume 71.5 fL (80.0-100.0); Monocytes # (auto) 0.98 K/uL (0.11-0.59); Monocytes % (auto) 5.3 %; Neutrophils % (auto) 85.9 %; Platelet Count 391 K/uL (130-400); RDW Coefficient of Variation 18.6 % (11.5-14.5); RDW Standard Deviation 47.8 fL (36.4-46.3); Red Blood Count 4.04 M/uL (4.70-6.10); White Blood Count 18.62 K/ul (4.8-10.8)
--- NOTE | 2024-02-03 20:00 | History & Physical Report ---
Date of Service February 03, 2024 Assessment & Plan (1) Severe sepsis with septic shock: Plan: Septic shock, GI source - CTA/P: Heterogenous mass surrounding the rectum 9.6 x 8.8 cm with rectal narrowing. No evidence of bowel obstruction. Likely representing primary r ectal neoplasm. - CTchest naf Suspect GI translocation. No urinary or respiratory symptoms. Zosyn continued. Daptomycin added. Blood cultures pending. Stool cultures pending. C. difficile pending although no diarrhea since arrival S/p 4 L crystalloid resuscitation, 2 units packed red cell transfusion with maps less than 50. Subsequently started on Levophed with MAP greater than 70 while on 0.05. Continue to titrate of MAP 65. Lactate is downtrending On maintenance half-normal saline due to rapid rise in sodium, BMP trended every 4 hours - Hyperkalemia with severe volume contraction normalized post fluids, and post tx acidosis w/ bicarb x1 push Calcitonin elevated No BUDDY, no transaminitis Subsequent lactate has normalized following resuscitation and pressors Continue above care, patient is pending transfer to [facility] Random cortisol is elevated appropriate with severe illness, no signs of adrenal insufficiency (2) Rectal mass: Plan: CT with rectal mass as above Patient is recommended for treatment where colorectal services are available Does have some maroon blood perirectally, hemoglobin is 9.3 on admission. No baseline for comparison. He has pallor and appears acutely unwell and has had some lightheadedness/dizziness. Empirically transfused. Also recommend colorectal services and IR backup for likely malignancy associated bleeding, no evidence of upper GI bleed and Protonix has been discontinued after initial load in the ER. No epigastric pain. Pending transfer as noted, patient has been accepted to the ICU at [facility] (3) Schizophrenia: Plan: Anxiety/schizoaffective disorder Reportedly well-controlled on risperidone, Effexor. Oral meds have been held for critical illness Oral medications temporarily held (4) Hyponatremia: Plan: Hypovolemic hyponatremia. Postresuscitation rise of 6 points. Placed on half-normal saline for resuscitation. Continue BMP every 4 hours. Adjust fluids as needed to maintain maximum 24-hour sodium change of 8 points. (5) Hypothyroid: Plan: Synthroid held Plan DVT: Pharmaco ppx contraindicated. SCDs Diet: NPO Dispo: ICU Pending xfer CODE: Full History of Present Illness Primary Care Provider: Gen Torres is a 53-year-old male with past medical history of schizophrenia, hypertension who presents to the ER for evaluation of 40 pound weight loss over the preceding 6 months. Patient saw his PCP but appears severely ill and was referred to the ER. ER initial evaluation revealed hemoglobin of 10.5, metabolic acidosis bicarb of 17, VBG 7.2 7/35/20/16, anion gap of 20. Patient was hypotensive 78/47, tachycardic to 120s, and thermic in the ER. Pale, clammy in the ER with rigors. Rectal exam was with maroon-colored stool. EKG: Sinus tachycardia rate 153. Leukocytosis of 31.5 With granulocytic expansion Hyponatremic 124, potassium 5.2, creatinine 1.08 Lactate 9.1 downtrending to 6.4 post fluids CTA: No evidence of PE, no acute abnormality. No evidence of pneumonia CTA/P: Heterogenous mass surrounding the rectum 9.6 x 8.8 cm with rectal narrowing. No evidence of bowel obstruction. 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 Primary prostatic malignancy within the differential. Perirectal and inferior mesenteric lymphadenopathy consistent with metastatic disease. Pancreatic dilation is noted with calcification of the distal tip of pancreatic tail resulting in pancreatic duct dilation and atrophy. Cholelithiasis. Chest x-ray: No acute finding CThead: No acute finding Ferritin 153, UIBC 132/low suggestive of anemia of chronic disease Seen at bedside. He reports that he has not followed with a doctor in many months but has been losing strengthAnd weight for many months. Up to 40 pounds of weight loss, becoming thin and cachectic over the preceding few months. In the last 2 weeks has been much worse and much more weak. + chills. In the last day has been pale, clammy, and sister thinks he may have been febrile at home. He and family deny any bright red blood per rectum, melena, or black/coffee- ground bowel movements but patient does have maroon-colored stool in the rectum on exam. No cough. No chest pain. No dyspnea, but fatigues easily. He endorsed abdominal distention but denies pain. Denies chest pain. Does want full workup and treatment for potential cancer. Denies prior GI bleeds. He reports she has a history of diabetes, high blood pressure, hypothyroidism, and schizophrenia. Schizophrenia reportedly well-controlled on risperidone. Denies past cardiac history at the bedside. L IJ in place. 1 can of chew tobacco use every other day. Denies alcohol use. Endorses allergy to aspirin and penicillin, rash. Denies other allergies. Endorses a history of colorectal cancer in a paternal grandfather, otherwise denies cancer history. Full code. Allergies Allergy/AdvReac Type Severity Reaction Status Date / Time aspirin Allergy Mild Unverified 08/10/09 03:49 PCN Allergy Mild Uncoded 01/06/06 16:09 Home Medications Medication Instructions Recorded Confirmed Type atorvastatin 40 mg tablet 40 mg PO UD 02/03/24 02/03/24 History carvedilol 12.5 mg tablet 12.5 mg PO UD 02/03/24 02/03/24 History fenofibrate nanocrystallized 48 mg 48 mg PO UD 02/03/24 02/03/24 History tablet hydrochlorothiazide 12.5 mg tablet 12.5 mg PO UD 02/03/24 02/03/24 History levothyroxine 50 mcg tablet 50 mcg PO UD 02/03/24 02/03/24 History lisinopril 5 mg tablet 5 mg PO UD 02/03/24 02/03/24 History metformin 500 mg tablet,extended 1,000 mg PO QAM 02/03/24 02/03/24 History release 24 hr risperidone 2 mg tablet 2 mg PO HS 02/03/24 02/03/24 History spironolactone 50 mg tablet 50 mg PO DAILY 02/03/24 02/03/24 History venlafaxine 37.5 mg 37.5 mg PO QAM 02/03/24 02/03/24 History capsule,extended release 24 hr (Effexor XR) venlafaxine 75 mg capsule,extended 75 mg PO DAILY 02/03/24 02/03/24 History release 24 hr (Effexor XR) Past Med/Surg History Problem List (Updated 02/03/24 @ 19:57 by Elbert Schaefer MD) High anion gap metabolic acidosis (Acute) Hematochezia (Acute) Hyponatremia Schizophrenia Sepsis Hyperkalemia (Acute) Anemia (Acute) Rectal mass (Acute) Lactic acidosis (Acute) Severe sepsis with septic shock (Acute) Medical History (Updated 02/03/24 @ 19:57 by Elbert Schaefer MD) Hypothyroid Social History Feels Safe at Home: Yes Physical Exam Physical Exam: General: Oriented to name, year, place. Ill-appearing. Follows commands. Pallor. HEENT: Atraumatic, normocephalic. L IJ in place. Pulm: CTAB A&P. -wheezes, -rales, -rhonchi. Symmetrical chest rise. No increased work of breathing. No respiratory distress. Cardiac: Regular, tachycardic, no murmur appreciated Abdominal: Softly distended. Without rebound/guarding. Extremities: Warm, dry, no edema. Sensation soft touch intact in hands and feet bilaterally. No petechiae. Results & Data Results & Data Vital Signs (Past 12 Hours) Vital Signs Temp Pulse Pulse Resp BP BP Pulse Ox 02/03/24 18:45 100 H 103/69 02/03/24 18:30 102 H 102/63 02/03/24 18:15 97 H 94/60 L 02/03/24 18:00 102 H 27 H 97/64 L 99 02/03/24 17:45 99 H 94/62 L 02/03/24 17:45 97 H 23 94/62 L 100 02/03/24 17:27 101 H 25 H 88/59 L 100 02/03/24 17:15 94/62 L 02/03/24 17:15 104 H 27 H 94/62 L 100 02/03/24 17:09 36.6 C 97 H 19 94/62 L 100 02/03/24 17:03 106 H 23 81/52 L 100 02/03/24 17:00 105 H 25 H 81/52 L 98 02/03/24 16:45 113 H 21 83/56 L 97 02/03/24 16:42 111 H 19 100 02/03/24 16:39 36.5 C 108 H 20 83/56 L 100 02/03/24 16:30 102 H 02/03/24 16:24 36.6 C 100 H 27 H 87/51 L 100 02/03/24 16:24 100 02/03/24 16:21 99 H 19 88/55 L 100 02/03/24 16:07 36.5 C 100 H 29 H 94/67 L 100 02/03/24 15:57 109 H 27 H 94/67 L 99 02/03/24 15:51 117 H 27 H 81 L 02/03/24 15:45 87/59 L 02/03/24 15:30 118 H 17 89/58 L 100 02/03/24 15:15 118 H 16 93/60 L 100 02/03/24 15:15 117 H 28 H 93/60 L 100 02/03/24 15:06 119 H 32 H 89/64 L 100 02/03/24 15:03 36.6 C 115 H 24 86/64 L 100 02/03/24 15:02 89/64 L 02/03/24 15:00 98/63 L 02/03/24 14:45 118 H 31 H 96/64 L 100 02/03/24 14:33 36.6 C 118 H 24 80/59 L 100 02/03/24 14:18 36.7 C 117 H 24 80/63 L 100 02/03/24 14:01 36.5 C 117 H 24 87/59 L 100 02/03/24 13:13 120 H 26 H 82/48 L 100 02/03/24 13:12 119 H 26 H 82/48 L 100 02/03/24 12:39 122 H 17 90/54 L 99 02/03/24 12:17 129 H 02/03/24 12:12 137 H 28 H 81/52 L 02/03/24 12:01 153 H 28 H 77/40 L 02/03/24 11:58 67/46 L 02/03/24 11:51 35.5 C L 20 78/47 L 85 L O2 Del Method 02/03/24 18:45 02/03/24 18:30 02/03/24 18:15 02/03/24 18:00 02/03/24 17:45 02/03/24 17:45 Room Air 02/03/24 17:27 02/03/24 17:15 02/03/24 17:15 02/03/24 17:09 02/03/24 17:03 Room Air 02/03/24 17:00 02/03/24 16:45 02/03/24 16:42 02/03/24 16:39 02/03/24 16:30 02/03/24 16:24 02/03/24 16:24 Room Air 02/03/24 16:21 02/03/24 16:07 02/03/24 15:57 02/03/24 15:51 02/03/24 15:45 02/03/24 15:30 02/03/24 15:15 02/03/24 15:15 Room Air 02/03/24 15:06 02/03/24 15:03 02/03/24 15:02 02/03/24 15:00 02/03/24 14:45 02/03/24 14:33 02/03/24 14:18 02/03/24 14:01 02/03/24 13:13 Room Air 02/03/24 13:12 02/03/24 12:39 02/03/24 12:17 02/03/24 12:12 02/03/24 12:01 02/03/24 11:58 02/03/24 11:51 Room Air Code Status & VTE Plan VTE Prophylaxis Plan VTE Prophylaxis will be ordered: Yes PG Care Time/CCT Total # of Minutes Spent Total Time Spent with Patient: Total time spent is greater than 50% in coordination of care (as documented) at patient's floor/unit and/or counseling patient: Coding Level of Care Code 31911 INT INP/OBS CARE 3/75MIN Diagnoses Severe sepsis with septic shock A41.9; R65.21 Rectal mass K62.89 Schizophrenia F20.9 Hyponatremia E87.1 Hypothyroid E03.9
[2024-02-03] MEDS: INSULIN ASPART PER UNIT CHARGE SC SCH (20:11)
[2024-02-03] MEDS: LANTUS PER UNIT CHARGE SC SCH (20:12)
[2024-02-03] MEDS: PIPERACILLIN/TAZOBACTAM 4.5 GM/100ML D5W IV ONE (20:28)
[2024-02-03] MEDS: PIPERACILLIN/TAZOBACTAM 4.5 GM in DEXTROSE 5% MINI-B 100 ML IV SCH (20:30)
[2024-02-03] MEDS ORDERED: MELATONIN 3 MG TAB PO PRN (21:26)
[2024-02-03 22:16] LABS: Adenovirus F 40/41 PCR Not Detected (NotDetected); Astrovirus PCR Not Detected (NotDetected); Campylobacter PCR Not Detected (NotDetected); Cryptosporidium PCR Not Detected (NotDetected); Cyclospora cayetanensis PCR Not Detected (NotDetected); Entamoeba histolytica PCR Not Detected (NotDetected); Enteroaggregative E.coli(EAEC) Not Detected (NotDetected); Enterotoxigenic E.coli (ETEC) Not Detected (NotDetected); Giardia lamblia PCR Not Detected (NotDetected); Norovirus GI/GII PCR Not Detected (NotDetected); Plesiomonas shigelloides PCR Not Detected (NotDetected); Rotavirus A PCR Not Detected (NotDetected); Salmonella PCR Not Detected (NotDetected); Sapovirus PCR Not Detected (NotDetected); Shiga-like Toxin E.coli (STEC) Not Detected (NotDetected); Shigella/Enteroinvasive E.coli Not Detected (NotDetected); Vibrio cholerae PCR Not Detected (NotDetected); Vibrio species PCR Not Detected (NotDetected); Yersinia enterocolitica PCR Not Detected (NotDetected)
[2024-02-03] MEDS: ICU ELECTROLYTE REPLACEMENT PROTOCOL SCH (22:26)
[2024-02-03] MEDS: ICU Protocol for HYPERglycemia SCH (22:35)
[2024-02-03 22:49] LABS: Enteropathogenic E.coli (EPEC) DETECTED (NotDetected)
[2024-02-03] MEDS: risperiDONE 2 MG TABLET PO STA (22:56)
[2024-02-03] MEDS: POTASSIUM CHLORIDE / WTR 20 MEQ/100 ML PLCT IV SCH (22:56)
[2024-02-03 23:13] LABS: Hematocrit (blood only) 27.5 % (42.0-52.0); Hemoglobin 8.9 g/dl (14.0-18.0)
[2024-02-03 23:28] LABS: BUN Creatinine Ratio 13.4 (10-20); Calcium 7.6 mg/dl (8.6-10.3); Creatinine Clr Calc Pharmacy 114.2 ml/min; Est GFR (African American) 127.1 ml/min; Est GFR (Non-African American) 109.7 ml/min; Potassium 3.5 mmol/L (3.5-5.1)
[2024-02-04] MEDS ORDERED: SODIUM CHLORIDE 0.9% 250 ML IV PRN (01:24)
[2024-02-04] MEDS: PLASMA-LYTE A 500 ML IV ONE (01:42)
[2024-02-04 02:28] LABS: A calco-baum cmplx NotReported Not Detected (NotDetected); Bact fragilis Not Reported Not Detected (NotDetected); Blood Culture Id Panel See PCR Comment (NotDetected); C auris Not Reported Not Detected (NotDetected); CTX-M Resistant Gene Not Detected (NotDetected); Calbicans Not Reported Not Detected (NotDetected); Candida glabrata Not Reported Not Detected (NotDetected); Candida krusei Not Reported Not Detected (NotDetected); Cneoformans/gatti Not Reported Not Detected (NotDetected); Cparapsilosis Not Reported Not Detected (NotDetected); E cloacae compx Not Reported Not Detected (NotDetected); Efaecalis Not Reported Not Detected (NotDetected); Efaecium Not Reported Not Detected (NotDetected); Enterobacterales DETECTED (NotDetected); Enterobacterales Not Reported DETECTED (NotDetected); Escherichia coli Not Reported DETECTED (NotDetected); H influenzae Not Reported Not Detected (NotDetected); IMP Resistant Gene Not Detected (NotDetected); K aerogenes Not Reported Not Detected (NotDetected); KPC Resistant Gene Not Detected (NotDetected); Koxytoca Not Reported Not Detected (NotDetected); Kpneumoniae grp Not Reported Not Detected (NotDetected); Lmonocyt Not Reported Not Detected (NotDetected); N meningitidis Not Reported Not Detected (NotDetected); NDM Resistant Gene Not Detected (NotDetected); OXA 48 Like Resistant Gene Not Detected (NotDetected); P aeruginosa Not Reported Not Detected (NotDetected); Proteus spp Not Reported Not Detected (NotDetected); Salmonella spp Not Reported Not Detected (NotDetected); Staph lugdunensis Not Reported Not Detected (NotDetected); Staph spp. Not Reported Not Detected (NotDetected); Staphaureus Not Reported Not Detected (NotDetected); Staphepi Not Reported Not Detected (NotDetected); Stenmaltophilia Not Reported Not Detected (NotDetected); Strep agal(GrpB) Not Reported Not Detected (NotDetected); Strep pneum Not Reported Not Detected (NotDetected); Strep pyog (GrpA) Not Reported Not Detected (NotDetected); Strep spp Not Reported Not Detected (NotDetected); VIM Resistant Gene Not Detected (NotDetected); mcr-1 Colistin Resistant Gene Not Detected (NotDetected)
[2024-02-04 04:58] LABS: Hemoglobin 9.5 g/dl (14.0-18.0); Mean Corpuscular Hemoglobin 23.5 pg (25.0-34.0); Mean Corpuscular Hgb Conc 31.7 g/dL (32.0-36.0); Mean Corpuscular Volume 74.1 fL (80.0-100.0); Platelet Count 322 K/uL (130-400); RDW Coefficient of Variation 18.7 % (11.5-14.5); RDW Standard Deviation 49.8 fL (36.4-46.3); Red Blood Count 4.05 M/uL (4.70-6.10); White Blood Count 23.43 K/ul (4.8-10.8)
[2024-02-04 05:25] LABS: INR 1.4 (0.9-1.1); Prothrombin Time 14.6 Seconds (9.0-12.0)
[2024-02-04 05:27] LABS: Albumin Globulin Ratio 0.8 (0.9-2); Albumin Level 2.3 gm/dl (3.4-5.0); BUN Creatinine Ratio 11.3 (10-20); Bilirubin,Total 1.6 mg/dl (0.2-1.0); Calcium 7.2 mg/dl (8.6-10.3); Creatinine Clr Calc Pharmacy 123.4 ml/min; Est GFR (African American) 131.3 ml/min; Est GFR (Non-African American) 113.3 ml/min; Magnesium 1.6 mg/dl (1.7-2.4); Phosphorus 3.1 mg/dl (2.5-4.9); Total Protein 5.3 gm/dl (6.0-8.3)
[2024-02-04 05:32] LABS: Anisocytosis Present; Basophils # (auto) 0.05 K/uL (0.00-0.20); Basophils % (auto) 0.2 %; Echinocytes 1+; Eosinophils # (auto) 0.03 K/uL (0.00-0.50); Eosinophils % (auto) 0.1 %; Immature Granulocytes # (auto) 0.39 K/uL (0.01-0.20); Immature Granulocytes % (auto) 1.7 %; Lymphocytes # (auto) 0.78 K/uL (1.20-3.40); Lymphocytes % (auto) 3.3 %; Monocytes # (auto) 1.76 K/uL (0.11-0.59); Monocytes % (auto) 7.5 %; Neutrophils # (auto) 20.42 K/uL (1.40-6.50); Neutrophils % (auto) 87.2 %; Polychromasia 1+
[2024-02-04] MEDS ORDERED: MAGNESIUM SULFATE / D5W 1 GM/100 ML BAG IV SCH (06:45)
[2024-02-04] MEDS: PLASMA-LYTE A 1,000 ML IV SCH (06:54)
[2024-02-04] MEDS: MAGNESIUM SULFATE / D5W 1 GM/100 ML BAG IV SCH (06:54)
--- NOTE | 2024-02-04 07:17 | XRay Report ---
XR chest 1V portable HISTORY: central line placement COMPARISON: Chest 02/03/2024. FINDINGS: Left jugular central venous catheter terminates in the SVC. No pneumothorax. No pleural eff usions. No focal lung consolidations to suggest a pneumonia. The heart is normal in size. IMPRESSION: Left jugular central venous catheter terminates at the SVC. No pneumothorax. ACT 112: Negative or not required by law. Electronically signed by: Gurvinder Young M.D. 02/04/2024 7:15 AM
--- NOTE | 2024-02-04 08:40 | Critical Care Progress Note ---
Date of Service February 04, 2024 Assessment & Plan (1) Severe sepsis with septic shock: (2) Lactic acidosis: (3) Rectal mass: (4) Anemia: (5) Hyperkalemia: Plan Impression: 53-year-old male with schizophrenia and hypertension with what appears to be colorectal malignancy with potential invasion into the prostate admitted with anemia, lactic acidosis, severe sepsis with septic shock and hyperkalemia. Recommendations: 1. Heme-onc: Likely rectal cancer. There are enlarged lymph nodes suggesting localized spread. He does not appear obstructed currently. Patient has been accepted at [facility] and is currently pending bed placement. He is to be evaluated by colorectal surgery. 2. Neuro: History of schizophrenia. Will restart risperidone and venlafaxine given delay in transfer secondary to bed placement. 3. Cardiovascular: Severe sepsis with septic shock. Lactate has cleared. Pressor requirement is minimal at this time. Echo without significant findings. 4. Pulmonary: No current issues. 5. Renal: Kidney function normal but the patient is hyperkalemic and hyponatremic. This has seemed to improve. Will trend this afternoon if patient remains inpatient. 6. Endocrine: Continue Synthroid replacement. Would not use metformin. Glycemic control with insulin. 7. ID: Severe sepsis. He does not have signs of peritonitis however bacterial translocation of a GI source is likely. Patient received Zosyn in the emergency room which should be adequate and will be continued. Trend procalcitonin. 8. GI: N.p.o. for now. Continue bolus daily Protonix. Do not suspect GI bleed so does not need Protonix drip. I have personally spent 35 minutes of critical care time in the direct management of this patient. This is a life/limb threatening event. This includes time spent evaluating patient, direct bedside care, chart review, placing orders, interpretation of diagnostic studies, discussion with consultants, patient, and family members, as well as other required patient management activities. This time is exclusive of all separately billable procedures, and teaching time and separate from and in addition to any other critical care service time. Admission and Anticipated Discharge Date Admission Date: February 03, 2024 Subjective Patient seen and evaluated at bedside. He has been titrating down off of his Levophed. He is finishing his fourth unit of blood. He offers no complaints of pain at this time. He is still awaiting a bed at [facility]. Review of Systems Review of Systems: A complete 10 point review of systems was reviewed with the patient with pertinent positives and negatives as per history of present illness. All else were negative. Physical Exam Physical Exam: VITAL SIGNS - Vital signs and nursing notes were reviewed. GENERAL - 53-year-old male appearing his stated age who is in no acute distress. Communicates well with provider and answers questions appropriately. SKIN - Without rashes. LUNGS - Chest wall symmetric without accessory muscle use, intercostals retractions, or central cyanosis. Normal vesicular breath sounds CTA B/L. No wheezes, rales, or rhonchi appreciated. CARDIAC - RRR with S1/S2. No murmur, rubs, or gallops appreciated. ABDOMEN - Abdominal contour flat without pulsations or visible masses. BS normoactive all four quadrants. No tenderness, palpable masses, hep atosplenomegaly, or ascites noted. EXTREMITIES - No clubbing or peripheral cyanosis. No pretibial edema present. NEUROLOGIC - Cranial nerves II through XII grossly intact. PSYCH - A&Ox3 and cooperates fully with examiner. Pt is very pleasant and interacts well with examiner. Results & Data Results & Data Vital Signs (Past 12 Hours) Vital Signs Temp Pulse Pulse Resp BP BP Pulse Ox 02/04/24 07:45 37.4 C 109 H 25 H 125/77 97 02/04/24 07:20 37.4 C 123 H 20 125/77 95 02/04/24 06:20 36.9 C 116 H 16 116/75 98 02/04/24 05:50 37 C 128 H 20 111/62 97 02/04/24 05:39 37 C 126 H 20 111/61 02/04/24 05:35 37 C 135 H 18 111/61 97 02/04/24 05:16 37 C 135 H 23 96/69 L 98 02/04/24 04:52 37.7 C H 138 H 20 113/63 99 02/04/24 03:52 37.7 C H 137 H 22 101/56 L 98 02/04/24 02:52 37.6 C H 130 H 20 99/57 L 99 02/04/24 02:32 98/56 L 02/04/24 02:32 98/56 L 02/04/24 02:27 139 H 19 02/04/24 02:22 37.7 C H 134 H 18 98/53 L 97 02/04/24 02:19 98/53 L 02/04/24 02:19 98/53 L 02/04/24 02:09 126 H 21 100 02/04/24 02:07 37.7 C H 131 H 20 102/59 L 100 02/04/24 01:54 129 H 21 98 02/04/24 01:50 37.4 C 130 H 24 101/58 L 100 02/04/24 01:39 127 H 23 98 02/04/24 01:32 100/60 02/04/24 01:08 37.2 C 02/04/24 01:06 139 H 20 96 02/04/24 01:03 133 H 23 97 02/04/24 01:02 86/55 L 02/04/24 01:02 86/55 L 02/04/24 01:02 86/55 L 02/04/24 00:48 137 H 16 97 02/04/24 00:47 81/54 L 02/04/24 00:45 138 H 18 97 02/04/24 00:43 91/57 L 02/04/24 00:42 143 H 26 H 99 02/04/24 00:36 140 H 20 98 02/04/24 00:35 87/55 L 02/04/24 00:35 87/55 L 02/04/24 00:33 84/51 L 02/04/24 00:17 93/54 L 02/04/24 00:15 143 H 16 96 02/04/24 00:00 141 H 02/03/24 23:45 139 H 19 97 02/03/24 23:33 142 H 16 97 02/03/24 23:32 95/56 L 02/03/24 23:32 95/56 L 02/03/24 23:24 138 H 15 98 02/03/24 23:18 137 H 19 98 02/03/24 23:17 94/58 L 02/03/24 23:17 94/58 L 02/03/24 23:17 94/58 L 02/03/24 23:17 94/58 L 02/03/24 23:12 137 H 24 97 02/03/24 23:06 141 H 23 96 02/03/24 23:02 92/55 L 02/03/24 23:02 92/55 L 02/03/24 23:02 92/55 L 02/03/24 22:47 95/57 L 02/03/24 22:45 138 H 22 96 02/03/24 22:33 142 H 25 H 98 02/03/24 22:32 95/59 L 02/03/24 22:32 95/59 L 02/03/24 22:32 95/59 L 02/03/24 22:20 87/62 L 02/03/24 22:18 141 H 18 97 02/03/24 22:02 102/58 L 02/03/24 22:02 102/58 L 02/03/24 21:47 108/63 02/03/24 21:32 111/63 02/03/24 21:28 37.6 C H 135 H 25 H 125/74 97 02/03/24 21:24 134 H 30 H 99 02/03/24 21:22 144 H 02/03/24 21:18 133 H 17 O2 Del Method 02/04/24 07:45 02/04/24 07:20 02/04/24 06:20 02/04/24 05:50 02/04/24 05:39 02/04/24 05:35 02/04/24 05:16 02/04/24 04:52 02/04/24 03:52 02/04/24 02:52 02/04/24 02:32 02/04/24 02:32 02/04/24 02:27 02/04/24 02:22 02/04/24 02:19 02/04/24 02:19 02/04/24 02:09 02/04/24 02:07 02/04/24 01:54 02/04/24 01:50 02/04/24 01:39 02/04/24 01:32 02/04/24 01:08 02/04/24 01:06 02/04/24 01:03 02/04/24 01:02 02/04/24 01:02 02/04/24 01:02 02/04/24 00:48 02/04/24 00:47 02/04/24 00:45 02/04/24 00:43 02/04/24 00:42 02/04/24 00:36 02/04/24 00:35 02/04/24 00:35 02/04/24 00:33 02/04/24 00:17 02/04/24 00:15 02/04/24 00:00 02/03/24 23:45 02/03/24 23:33 02/03/24 23:32 02/03/24 23:32 02/03/24 23:24 02/03/24 23:18 02/03/24 23:17 02/03/24 23:17 02/03/24 23:17 02/03/24 23:17 02/03/24 23:12 02/03/24 23:06 02/03/24 23:02 02/03/24 23:02 02/03/24 23:02 02/03/24 22:47 02/03/24 22:45 02/03/24 22:33 02/03/24 22:32 02/03/24 22:32 02/03/24 22:32 02/03/24 22:20 02/03/24 22:18 02/03/24 22:02 02/03/24 22:02 02/03/24 21:47 02/03/24 21:32 02/03/24 21:28 Room Air 02/03/24 21:24 02/03/24 21:22 02/03/24 21:18 Coding Level of Care Code 02695 CRITICAL CARE 1ST 30-74M Diagnoses Severe sepsis with septic shock A41.9; R65.21 Lactic acidosis E87.20 Rectal mass K62.89 Anemia D64.9 Anemia type: unspecified type Hyperkalemia E87.5 (4) Anemia Anemia type: unspecified type Qualified Code(s): D64.9 - Anemia, unspecified
[2024-02-04 09:16] LABS: BUN Creatinine Ratio 9.1 (10-20); Calcium 7.3 mg/dl (8.6-10.3); Creatinine Clr Calc Pharmacy 149.8 ml/min; Est GFR (African American) 137.9 ml/min; Potassium 3.6 mmol/L (3.5-5.1)
[2024-02-04] MEDS: VENLAFAXINE HCL XR 37.5 MG CAPXR PO ONE (11:05)
[2024-02-04] MEDS: VENLAFAXINE HCL XR 75 MG CAPXR PO ONE (11:05)
[2024-02-04] MEDS: PANTOprazole 40 MG in SYRINGE DAILY IV SCH (11:06)
--- NOTE | 2024-02-04 11:23 | XCELERA ---
[id number]
--- NOTE | 2024-02-04 12:27 | Hospitalist Progress Note ---
Date of Service February 04, 2024 Assessment & Plan (1) Severe sepsis with septic shock: (2) Lactic acidosis: (3) Rectal mass: (4) Anemia: (5) Hyperkalemia: Plan Impression: 53-year-old male with schizophrenia and hypertension with what appears to be colorectal malignancy with potential invasion into the prostate admitted with anemia, lactic acidosis, severe sepsis with septic shock and hyperkalemia. Recommendations: 1. Heme-onc: Likely rectal cancer. There are enlarged lymph nodes suggesting localized spread. He does not appear obstructed currently. Recommended the ER and primary service reach out to colorectal surgery at a tertiary facility to determine whether or not the patient would be best served by transfer to their facility as we do not have capabilities to manage this surgically locally. He will require outpatient evaluation including PET scanning and potentially MRI of the liver but these can be withheld currently until the patient stabilizes. Leukocytosis likely secondary to infection and will be trended. 2. Neuro: History of schizophrenia. Hold risperidone and venlafaxine currently 3. Cardiovascular: Severe sepsis with septic shock. The patient's received 2 L of crystalloid with improvement in his lactate. Will give an additional 2 L of crystalloid now as he may still be volume depleted. Continue to trend lactates. History of hypertension. His antihypertensives will be held. Do not see an indication for glucagon currently. Will update echocardiogram. 4. Pulmonary: No current issues. 5. Renal: Kidney function normal but the patient is hyperkalemic and hyponatremic. This may be secondary to his acidosis which is metabolic in etiology. Will treat acidosis with bicarb and insulin. Acidosis may also be aggravated by concomitant use of metformin. Given his acidosis and hyperkalemia, 1 dose of bicarb will be administered now. Hyponatremia may be hypovolemic hyponatremia and will give an additional 2 L of normal saline and reassess in a few hours 6. Endocrine: Continue Synthroid replacement. Would not use metformin. Glycemic control with insulin. 7. ID: Severe sepsis. He does not have signs of peritonitis however bacterial translocation of a GI source is likely. Patient received Zosyn in the emergency room which should be adequate and will be continued. Trend procalcitonin. 8. GI: N.p.o. for now. Continue bolus daily Protonix. Do not suspect GI bleed so does not need Protonix drip. Patient is critically ill with significant possibility of clinical deterioration and/or . A total of 65 minutes of critical care time was spent in evaluation management stabilization of this patient. Admission and Anticipated Discharge Date Admission Date: February 03, 2024 Results & Data Results & Data Vital Signs (Past 12 Hours) Vital Signs Temp Pulse Resp BP Pulse Ox O2 Del Method 02/04/24 10:06 112 H 25 H 97 02/04/24 10:02 107/65 02/04/24 09:57 115 H 23 98 02/04/24 09:45 110 H 24 97 02/04/24 09:33 111 H 23 97 02/04/24 09:32 115/70 02/04/24 09:09 113 H 22 98 02/04/24 09:06 114 H 23 98 Room Air 02/04/24 09:02 109/69 02/04/24 08:54 122 H 23 96 02/04/24 08:17 110/72 02/04/24 08:15 109 H 24 97 02/04/24 08:02 108/65 02/04/24 08:00 107 H 20 96 02/04/24 08:00 123 H 02/04/24 07:47 114/67 02/04/24 07:45 37.4 C 109 H 25 H 125/77 97 02/04/24 07:32 125/77 02/04/24 07:21 120 H 24 97 02/04/24 07:20 37.4 C 123 H 20 125/77 95 02/04/24 07:17 113/73 02/04/24 07:12 113 H 23 98 02/04/24 07:02 114/71 02/04/24 07:00 112 H 21 97 Room Air 02/04/24 06:47 122/75 02/04/24 06:36 116/75 02/04/24 06:32 85/46 L 02/04/24 06:20 36.9 C 116 H 16 116/75 98 02/04/24 06:18 125 H 28 H 100 02/04/24 06:17 117/69 02/04/24 06:15 123 H 24 99 02/04/24 06:02 114/67 02/04/24 06:00 122 H 21 98 02/04/24 05:53 111/62 02/04/24 05:50 37 C 128 H 20 111/62 97 02/04/24 05:48 126 H 26 H 97 02/04/24 05:47 111/63 02/04/24 05:39 37 C 126 H 20 111/61 02/04/24 05:35 37 C 135 H 18 111/61 97 02/04/24 05:32 111/61 02/04/24 05:30 132 H 18 98 02/04/24 05:17 107/62 02/04/24 05:17 96/69 L 02/04/24 05:16 37 C 135 H 23 96/69 L 98 02/04/24 05:15 131 H 25 H 98 02/04/24 05:09 133 H 22 100 02/04/24 04:52 37.7 C H 138 H 20 113/63 99 02/04/24 04:47 113/63 02/04/24 04:47 113/63 02/04/24 04:32 106/63 02/04/24 04:32 106/63 02/04/24 04:30 126 H 17 100 02/04/24 04:17 110/60 02/04/24 03:52 37.7 C H 137 H 22 101/56 L 98 02/04/24 02:52 37.6 C H 130 H 20 99/57 L 99 02/04/24 02:32 98/56 L 02/04/24 02:32 98/56 L 02/04/24 02:27 139 H 19 02/04/24 02:22 37.7 C H 134 H 18 98/53 L 97 02/04/24 02:19 98/53 L 02/04/24 02:19 98/53 L 02/04/24 02:09 126 H 21 100 02/04/24 02:07 37.7 C H 131 H 20 102/59 L 100 02/04/24 01:54 129 H 21 98 02/04/24 01:50 37.4 C 130 H 24 101/58 L 100 02/04/24 01:39 127 H 23 98 02/04/24 01:32 100/60 02/04/24 01:08 37.2 C 02/04/24 01:06 139 H 20 96 02/04/24 01:03 133 H 23 97 02/04/24 01:02 86/55 L 02/04/24 01:02 86/55 L 02/04/24 01:02 86/55 L 02/04/24 00:48 137 H 16 97 02/04/24 00:47 81/54 L 02/04/24 00:45 138 H 18 97 02/04/24 00:43 91/57 L 02/04/24 00:42 143 H 26 H 99 02/04/24 00:36 140 H 20 98 02/04/24 00:35 87/55 L 02/04/24 00:35 87/55 L 02/04/24 00:33 84/51 L Resident Activity Tracking Resident Involvement: Resident Care Provided Care Provided: Adult Hospital Medicine (4) Anemia Anemia type: unspecified type Qualified Code(s): D64.9 - Anemia, unspecified
[2024-02-04 13:09] LABS: BUN Creatinine Ratio 7.7 (10-20); Calcium 7.2 mg/dl (8.6-10.3); Creatinine Clr Calc Pharmacy 158.5 ml/min; Est GFR (African American) 141.1 ml/min; Est GFR (Non-African American) 121.7 ml/min; Potassium 3.5 mmol/L (3.5-5.1)
--- NOTE | 2024-02-04 13:53 | Pharmacy Report ---
Pharmacy Glycemic Short Note 2 - Date of Service February 04, 2024 - Glycemic Short BSG Results (Last 24 hours): 02/03/24 02/03/24 02/03/24 16:13 17:24 19:19 Glucose 96 103 H POC Glucose 213 H POC Glucose (other) 02/03/24 02/03/24 02/04/24 19:40 22:45 00:35 Glucose 154 H POC Glucose 119 H POC Glucose (other) 146 H 02/04/24 02/04/24 02/04/24 04:04 04:32 07:30 Glucose 158 H POC Glucose 187 H POC Glucose (other) 155 H 02/04/24 02/04/24 02/04/24 08:43 11:29 12:35 Glucose 184 H 149 H POC Glucose 132 H POC Glucose (other) OUTPATIENT ANTIDIABETIC REGIMEN: * Metformin 1gm PO daily * A1c = ? (not drawn this admit secondary to PRBC x-fusion) ASSESSMENT: * Type 2 diabetic admitted for septic shock likely secondary to GI source (rect al mass) * BSGs adequately controlled thus far with Novolog SQ * Patient remains on pressor support (norepi) however it is being titrated down. IV abx continue (mixed in D5W). Protonix drip (mixed in D5W) converted to IV push. * Plant to continue current insulin regimen with only slight adjustments. PLAN FOR INPATIENT GLYCEMIC CONTROL: * Hold outpatient oral diabetes medications (metformin) * Basal insulin * Lantus Q HS, dosed per scale. Will only receive if BSG > 180 (give 5 units if BSG > 180) * Bolus insulin * NovoLog per scale q 4 hrs * Goal Range: Low 110 mg/dL - High 140 mg/dL * Correction Factor: 20 mg/dL/unit * Nutritional / Prandial insulin per carb ratio of 1 unit per 10 grams CHO consumed
[2024-02-04 14:35] LABS: Hematocrit (blood only) 33.4 % (42.0-52.0); Hemoglobin 11.3 g/dl (14.0-18.0)
[2024-02-04 17:15] LABS: BUN Creatinine Ratio 7.5 (10-20); Calcium 7.2 mg/dl (8.6-10.3); Creatinine Clr Calc Pharmacy 155.5 ml/min; Est GFR (Non-African American) 120.8 ml/min; Potassium 3.4 mmol/L (3.5-5.1)
--- NOTE | 2024-02-04 17:16 | Discharge Summary ---
Date of Service February 05, 2024 Admission HPI Per Admitting Provider Brian is a 53-year-old male with past medical history of schizophrenia, hypertension who presents to the ER for evaluation of 40 pound weight loss over the preceding 6 months. Patient saw his PCP but appears severely ill and was referred to the ER. ER initial evaluation revealed hemoglobin of 10.5, metabolic acidosis bicarb of 17, VBG 7.2 7/35/20/16, anion gap of 20. Patient was hypotensive 78/47, tachycardic to 120s, and thermic in the ER. Pale, clammy in the ER with rigors. Rectal exam was with maroon-colored stool. EKG: Sinus tachycardia rate 153. Leukocytosis of 31.5 With granulocytic expansion Hyponatremic 124, potassium 5.2, creatinine 1.08 Lactate 9.1 downtrending to 6.4 post fluids CTA: No evidence of PE, no acute abnormality. No evidence of pneumonia CTA/P: Heterogenous mass surrounding the rectum 9.6 x 8.8 cm with rectal narrowing. No evidence of bowel obstruction. 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 Primary prostatic malignancy within the differential. Perirectal and inferior mesenteric lymphadenopathy consistent with metastatic disease. Pancreatic dilation is noted with calcification of the distal tip of pancreatic tail resulting in pancreatic duct dilation and atrophy. Cholelithiasis. Chest x-ray: No acute finding CThead: No acute finding Ferritin 153, UIBC 132/low suggestive of anemia of chronic disease Seen at bedside. He reports that he has not followed with a doctor in many months but has been losing strengthAnd weight for many months. Up to 40 pounds of weight loss, becoming thin and cachectic over the preceding few months. In the last 2 weeks has been much worse and much more weak. + chills. In the last day has been pale, clammy, and sister thinks he may have been febrile at home. He and family deny any bright red blood per rectum, melena, or black/coffee- ground bowel movements but patient does have maroon-colored stool in the rectum on exam. No cough. No chest pain. No dyspnea, but fatigues easily. He endorsed abdominal distention but denies pain. Denies chest pain. Does want full workup and treatment for potential cancer. Denies prior GI bleeds. He reports she has a history of diabetes, high blood pressure, hypothyroidism, and schizophrenia. Schizophrenia reportedly well-controlled on risperidone. Denies past cardiac history at the bedside. L IJ in place. 1 can of chew tobacco use every other day. Denies alcohol use. Endorses allergy to aspirin and penicillin, rash. Denies other allergies. Endorses a history of colorectal cancer in a paternal grandfather, otherwise denies cancer history. Full code. Admission Exam Per Admitting Provider General: Oriented to name, year, place. Ill-appearing. Follows commands. Pallor. HEENT: Atraumatic, normocephalic. L IJ in place. Pulm: CTAB A&P. -wheezes, -rales, -rhonchi. Symmetrical chest rise. No increased work of breathing. No respiratory distress. Cardiac: Regular, tachycardic, no murmur appreciated Abdominal: Softly distended. Without rebound/guarding. Extremities: Warm, dry, no edema. Sensation soft touch intact in hands and feet bilaterally. No petechiae. Principal Diagnosis severe sepsis, rectal mass Discharge Exam Constitutional WD/WN, vitals as above Respiratory Unlabored breathing, no conversational dyspnea appreciated. Skin no rashes, warm and dry Neurologic AOx3 Psychiatric mood affect congruence Discharge Data Allergies Allergy/AdvReac Type Severity Reaction Status Date / Time aspirin Allergy Mild Unknown Unverified 02/04/24 15:09 Penicillins Allergy Mild Unknown Verified 02/03/24 22:21 Consultations 02/03/24 19:20 ED Decision to Admit Stat 02/03/24 21:22 Consult [employer] Routine 02/04/24 17:05 Burn CD for patient Stat Ordered Studies Abdomen/Pelvis CT 02/03/24 12:[address] WITH IV CONTRAST CT DOSE: HISTORY: hypotensive, lower GIB TECHNIQUE: Multiaxial CT images of the abdomen and pelvis were performed following the use of intravenous contrast. A dose lowering technique was utilized adhering to the principles of ALARA. COMPARISON STUDY: None. FINDINGS: The lung bases will be reported on the same day chest CTA. No pneumoperitoneum. No pneumatosis. No suspicious lytic or blastic osseous lesions. There is nondisplaced healing fracture through the S3 level of the sacrum. No hepatic or splenic masses. The adrenal glands are unremarkable. Small gallstone. No gallbladder wall thickening. The main portal vein is patent. Punctate cortical calcification within the left kidney. No hydronephrosis. There are few scattered punctate calcifications within the pancreas. There is a focal coarse calcifications within the tail the pancreas which results in pancreatic atrophy and mild dilatation of the main pancreatic duct at the distal tip of the tail. The main pancreatic duct at this location measures approximately 4 mm. Normal caliber abdominal aorta. Mildly enlarged inferior mesenteric and perirectal lymph nodes. Dominant right perirectal lymph node on image 293 measures 12 mm. This is consistent with metastatic disease. There is a large heterogeneous/necrotic mass within/surrounding the rectum which measures approximately 9.6 x 8.8 cm. This results in moderate narrowing of the rectal lumen without evidence for a bowel obstruction. This mass appears to invade into the posterior prostate gland. The bladder is decompressed by Fox catheter. Normal appendix. IMPRESSION: 1. There is a large heterogeneous mass within/surrounding the rectum which measures approximately 9.6 x 8.8 cm. This results in moderate narrowing of the rectal lumen without evidence for a bowel obstruction. This mass also invades into the posterior prostate gland. 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 A primary prostate malignancy remains in the differential diagnosis. 2. Perirectal and inferior mesenteric lymphadenopathy consistent with metastatic disease. 3. Focal coarse calcification at the distal tip of the pancreatic tail resulting in focal dilatation of main pancreatic duct and atrophy of the tip of the pancreatic tail 4. Cholelithiasis. 5. The bladder is decompressed by Fox catheter. ACT 112: Negative or not required by law. Electronically signed by: Gurvinder Young M.D. 02/03/2024 1:50 PM Chest CTA 02/03/24 12:22 CT angio chest PE protocol CLINICAL HISTORY: hypoxia, hypotension, tachycardia, r/o PE TECHNIQUE: Multidetector row helical CT of the chest was performed with angiographic protocol. Coronal and sagittal reformations were obtained. Coronal and sagittal MIPS were obtained from the axial data set and were submitted for review. Automated dose lowering techniques and/or adjustment according to patient size were utilized for this exam. CT DOSE: 2549.93 mGy.cm Comparison: Comparison is made to CTA chest 02/03/2024 FINDINGS: Lungs and pleura: Atelectasis versus scarring is seen in the dependent portions of the lungs. Heart and pericardium: Heart size is normal. No pericardial effusion. Vessels: No evidence of pulmonary embolism. Mediastinum and radha: Unremarkable. Chest wall and lower neck: Unremarkable. Abdomen: Unremarkable. Bones: Unremarkable. IMPRESSION: No acute abnormality and in particular no evidence of pulmonary embolus. ACT 112: Negative or not required by law. Electronically signed by: Derick Khalil M.D. 02/03/2024 1:[address] 02/03/24 12:22 CT head/brain wo con CLINICAL HISTORY: 53 years-old Male with ams. Acute head trauma with altered mental status TECHNIQUE: Multiple axial CT images of the head were obtained without contrast. A dose lowering technique was utilized adhering to the principles of ALARA. COMPARISON: None. FINDINGS: No acute intracranial hemorrhage, midline shift, intracranial mass, hydrocephalus, territorial ischemia or abnormal extra-axial collection. The calvarium is intact. The paranasal sinuses, mastoid air cells, and middle ear cavities are clear. IMPRESSION: No acute intracranial abnormality. ACT 112: Negative or not required by law. The above report was generated using voice recognition software. It may contain grammatical, syntax or spelling errors. Electronically signed by: Delvis Holman M.D. 02/03/2024 1:33 PM Chest X-Ray 02/03/24 18:56 XR chest 1V portable HISTORY: central line placement COMPARISON: Chest 02/03/2024. FINDINGS: Left jugular central venous catheter terminates in the SVC. No pneumothorax. No pleural effusions. No focal lung consolidations to suggest a pneumonia. The heart is normal in size. IMPRESSION: Left jugular central venous catheter terminates at the SVC. No pneumothorax. ACT 112: Negative or not required by law. Electronically signed by: Gurvinder Young M.D. 02/04/2024 7:15 AM Abnormal lab results 02/03/24 02/03/24 02/03/24 Range/Units 12:08 12:26 17:24 WBC (4.8-10.8) K/ul RBC (4.70-6.10) M/uL Hgb (14.0-18.0) g/dl Hct (42.0-52.0) % MCV (80.0-100.0) fL MCH (25.0-34.0) pg MCHC (32.0-36.0) g/dL RDW Std Deviation (36.4-46.3) fL RDW Coeff of Dru (11.5-14.5) % MPV (9.4-12.4) fL Neut # (Auto) (1.40-6.50) K/uL Lymph # (Auto) (1.20-3.40) K/uL Bryan # (Auto) (0.11-0.59) K/uL Immature Gran # (Auto) (0.01-0.20) K/uL PT (9.0-12.0) Seconds INR (0.9-1.1) Fibrinogen 496 H (184-400) mg/dl VBG pH (7.36-7.41) VBG pCO2 (38-50) mmHg Sodium (136-145) mmol/L Potassium (3.5-5.1) mmol/L Carbon Dioxide (21-32) mmol/L BUN (6-23) mg/dl Creatinine (0.6-1.4) mg/dl BUN/Creatinine Ratio (10-20) Glucose (70-99(Fasting)) mg/dl POC Glucose (70-99) mg/dl POC Glucose (other) (70-99) mg/dl Calcium (8.6-10.3) mg/dl Magnesium (1.7-2.4) mg/dl Total Bilirubin (0.2-1.0) mg/dl Total Protein (6.0-8.3) gm/dl Albumin (3.4-5.0) gm/dl Albumin/Globulin Ratio (0.9-2) Procalcitonin (0-0.5) ng/ml Stool EPEC (PCR) (NotDetected) Enterobacterales (PCR) DETECTED A (NotDetected) E. coli (PCR) DETECTED A (NotDetected) Crossmatch See Detail 02/03/24 02/03/24 02/03/24 Range/Units 19:19 19:40 19:58 WBC 18.62 H D (4.8-10.8) K/ul RBC 4.04 L (4.70-6.10) M/uL Hgb 9.3 L (14.0-18.0) g/dl Hct 28.9 L (42.0-52.0) % MCV 71.5 L D (80.0-100.0) fL MCH 23.0 L (25.0-34.0) pg MCHC (32.0-36.0) g/dL RDW Std Deviation 47.8 H (36.4-46.3) fL RDW Coeff of Dru 18.6 H (11.5-14.5) % MPV 8.0 L (9.4-12.4) fL Neut # (Auto) 16.00 H (1.40-6.50) K/uL Lymph # (Auto) 0.77 L (1.20-3.40) K/uL Bryan # (Auto) 0.98 H (0.11-0.59) K/uL Immature Gran # (Auto) 0.71 H (0.01-0.20) K/uL PT (9.0-12.0) Seconds INR (0.9-1.1) Fibrinogen (184-400) mg/dl VBG pH 7.45 H (7.36-7.41) VBG pCO2 27 L (38-50) mmHg Sodium 130 L (136-145) mmol/L Potassium (3.5-5.1) mmol/L Carbon Dioxide 18 L (21-32) mmol/L BUN (6-23) mg/dl Creatinine (0.6-1.4) mg/dl BUN/Creatinine Ratio (10-20) Glucose 103 H (70-99(Fasting)) mg/dl POC Glucose 119 H (70-99) mg/dl POC Glucose (other) (70-99) mg/dl Calcium 7.9 L (8.6-10.3) mg/dl Magnesium (1.7-2.4) mg/dl Total Bilirubin 2.6 H D (0.2-1.0) mg/dl Total Protein 5.7 L D (6.0-8.3) gm/dl Albumin 2.4 L (3.4-5.0) gm/dl Albumin/Globulin Ratio 0.7 L (0.9-2) Procalcitonin (0-0.5) ng/ml Stool EPEC (PCR) DETECTED A* (NotDetected) Enterobacterales (PCR) (NotDetected) E. coli (PCR) (NotDetected) Crossmatch 02/03/24 02/04/24 02/04/24 Range/Units 22:45 00:35 04:04 WBC (4.8-10.8) K/ul RBC (4.70-6.10) M/uL Hgb 8.9 L (14.0-18.0) g/dl Hct 27.5 L (42.0-52.0) % MCV (80.0-100.0) fL MCH (25.0-34.0) pg MCHC (32.0-36.0) g/dL RDW Std Deviation (36.4-46.3) fL RDW Coeff of Dru (11.5-14.5) % MPV (9.4-12.4) fL Neut # (Auto) (1.40-6.50) K/uL Lymph # (Auto) (1.20-3.40) K/uL Bryan # (Auto) (0.11-0.59) K/uL Immature Gran # (Auto) (0.01-0.20) K/uL PT (9.0-12.0) Seconds INR (0.9-1.1) Fibrinogen (184-400) mg/dl VBG pH (7.36-7.41) VBG pCO2 (38-50) mmHg Sodium 128 L (136-145) mmol/L Potassium (3.5-5.1) mmol/L Carbon Dioxide 20 L (21-32) mmol/L BUN (6-23) mg/dl Creatinine (0.6-1.4) mg/dl BUN/Creatinine Ratio (10-20) Glucose 154 H (70-99(Fasting)) mg/dl POC Glucose (70-99) mg/dl POC Glucose (other) 146 H 155 H (70-99) mg/dl Calcium 7.6 L (8.6-10.3) mg/dl Magnesium (1.7-2.4) mg/dl Total Bilirubin (0.2-1.0) mg/dl Total Protein (6.0-8.3) gm/dl Albumin (3.4-5.0) gm/dl Albumin/Globulin Ratio (0.9-2) Procalcitonin (0-0.5) ng/ml Stool EPEC (PCR) (NotDetected) Enterobacterales (PCR) (NotDetected) E. coli (PCR) (NotDetected) Crossmatch 02/04/24 02/04/24 02/04/24 Range/Units 04:32 07:30 08:43 WBC 23.43 H (4.8-10.8) K/ul RBC 4.05 L (4.70-6.10) M/uL Hgb 9.5 L (14.0-18.0) g/dl Hct 30.0 L (42.0-52.0) % MCV 74.1 L (80.0-100.0) fL MCH 23.5 L (25.0-34.0) pg MCHC 31.7 L (32.0-36.0) g/dL RDW Std Deviation 49.8 H (36.4-46.3) fL RDW Coeff of Dru 18.7 H (11.5-14.5) % MPV 8.0 L (9.4-12.4) fL Neut # (Auto) 20.42 H (1.40-6.50) K/uL Lymph # (Auto) 0.78 L (1.20-3.40) K/uL Bryan # (Auto) 1.76 H (0.11-0.59) K/uL Immature Gran # (Auto) 0.39 H (0.01-0.20) K/uL PT 14.6 H (9.0-12.0) Seconds INR 1.4 H (0.9-1.1) Fibrinogen (184-400) mg/dl VBG pH (7.36-7.41) VBG pCO2 (38-50) mmHg Sodium 127 L 128 L (136-145) mmol/L Potassium (3.5-5.1) mmol/L Carbon Dioxide 20 L (21-32) mmol/L BUN 5 L (6-23) mg/dl Creatinine 0.55 L (0.6-1.4) mg/dl BUN/Creatinine Ratio 9.1 L (10-20) Glucose 158 H 184 H (70-99(Fasting)) mg/dl POC Glucose 187 H (70-99) mg/dl POC Glucose (other) (70-99) mg/dl Calcium 7.2 L 7.3 L (8.6-10.3) mg/dl Magnesium 1.6 L (1.7-2.4) mg/dl Total Bilirubin 1.6 H (0.2-1.0) mg/dl Total Protein 5.3 L (6.0-8.3) gm/dl Albumin 2.3 L (3.4-5.0) gm/dl Albumin/Globulin Ratio 0.8 L (0.9-2) Procalcitonin 1.80 H (0-0.5) ng/ml Stool EPEC (PCR) (NotDetected) Enterobacterales (PCR) (NotDetected) E. coli (PCR) (NotDetected) Crossmatch 02/04/24 02/04/24 02/04/24 Range/Units 11:29 12:35 14:11 WBC (4.8-10.8) K/ul RBC (4.70-6.10) M/uL Hgb 11.3 L (14.0-18.0) g/dl Hct 33.4 L (42.0-52.0) % MCV (80.0-100.0) fL MCH (25.0-34.0) pg MCHC (32.0-36.0) g/dL RDW Std Deviation (36.4-46.3) fL RDW Coeff of Dru (11.5-14.5) % MPV (9.4-12.4) fL Neut # (Auto) (1.40-6.50) K/uL Lymph # (Auto) (1.20-3.40) K/uL Bryan # (Auto) (0.11-0.59) K/uL Immature Gran # (Auto) (0.01-0.20) K/uL PT (9.0-12.0) Seconds INR (0.9-1.1) Fibrinogen (184-400) mg/dl VBG pH (7.36-7.41) VBG pCO2 (38-50) mmHg Sodium 129 L (136-145) mmol/L Potassium (3.5-5.1) mmol/L Carbon Dioxide (21-32) mmol/L BUN 4 L (6-23) mg/dl Creatinine 0.52 L (0.6-1.4) mg/dl BUN/Creatinine Ratio 7.7 L (10-20) Glucose 149 H (70-99(Fasting)) mg/dl POC Glucose 132 H (70-99) mg/dl POC Glucose (other) (70-99) mg/dl Calcium 7.2 L (8.6-10.3) mg/dl Magnesium (1.7-2.4) mg/dl Total Bilirubin (0.2-1.0) mg/dl Total Protein (6.0-8.3) gm/dl Albumin (3.4-5.0) gm/dl Albumin/Globulin Ratio (0.9-2) Procalcitonin (0-0.5) ng/ml Stool EPEC (PCR) (NotDetected) Enterobacterales (PCR) (NotDetected) E. coli (PCR) (NotDetected) Crossmatch 02/04/24 02/04/24 Range/Units 15:55 16:24 WBC (4.8-10.8) K/ul RBC (4.70-6.10) M/uL Hgb (14.0-18.0) g/dl Hct (42.0-52.0) % MCV (80.0-100.0) fL MCH (25.0-34.0) pg MCHC (32.0-36.0) g/dL RDW Std Deviation (36.4-46.3) fL RDW Coeff of Dru (11.5-14.5) % MPV (9.4-12.4) fL Neut # (Auto) (1.40-6.50) K/uL Lymph # (Auto) (1.20-3.40) K/uL Bryan # (Auto) (0.11-0.59) K/uL Immature Gran # (Auto) (0.01-0.20) K/uL PT (9.0-12.0) Seconds INR (0.9-1.1) Fibrinogen (184-400) mg/dl VBG pH (7.36-7.41) VBG pCO2 (38-50) mmHg Sodium 128 L (136-145) mmol/L Potassium 3.4 L (3.5-5.1) mmol/L Carbon Dioxide (21-32) mmol/L BUN 4 L (6-23) mg/dl Creatinine 0.53 L (0.6-1.4) mg/dl BUN/Creatinine Ratio 7.5 L (10-20) Glucose 124 H (70-99(Fasting)) mg/dl POC Glucose 130 H (70-99) mg/dl POC Glucose (other) (70-99) mg/dl Calcium 7.2 L (8.6-10.3) mg/dl Magnesium (1.7-2.4) mg/dl Total Bilirubin (0.2-1.0) mg/dl Total Protein (6.0-8.3) gm/dl Albumin (3.4-5.0) gm/dl Albumin/Globulin Ratio (0.9-2) Procalcitonin (0-0.5) ng/ml Stool EPEC (PCR) (NotDetected) Enterobacterales (PCR) (NotDetected) E. coli (PCR) (NotDetected) Crossmatch Hospital Course (1) Severe sepsis with septic shock: (2) Lactic acidosis: (3) Rectal mass: (4) Anemia: (5) Hyperkalemia: Plan Septic shock, GI source - CTA/P: Heterogenous mass surrounding the rectum 9.6 x 8.8 cm with rectal narrowing. No evidence of bowel obstruction. 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 - CTchest NAF Suspect GI translocation. No urinary or respiratory symptoms. Started on Zosyn. Blood cultures +gm negative bacilli in 1/4 bottles at 24h. Stool cultures pending. C. difficile pending. - Transferred to ICU, required pressor support. S/p fluid resuscitation + 4 units pRBCs - Continue maintenance fluids Rectal Mass: CT with rectal mass as above - enlarged LNs suggesting localized spread Patient is recommended for treatment where colorectal services are available - to be transferred to [facility] - Most recent Hgb 11.3 schizoaffective disorder Reportedly well-controlled on risperidone, Effexor. Oral meds have been held for critical illness. Restart home meds as appropriate. Total Time Total Time Spent Total Time Spent (In Minutes): see attending attestation Discharge Plan Discharge Items Patient Disposition: Transfer Acute [facility] Reason For Visit: RECTAL MASS, SEPSIS, ANEMIA Discharge Diagnosis: Rectal mass, sepsis Activity: As commented below Activity Comment: as directed after PT/OT evals Non-emergency contact: Primary Care Provider Call non-emergency contact if: you have any medication questions, your symptoms worsen and you have a fever Follow-up/Referrals: Gen Morgan [Primary Care Provider] - Diet: Nothing by Mouth Addtl Attending Provider Instructions: Septic shock, GI source - CTA/P: Heterogenous mass surrounding the rectum 9.6 x 8.8 cm with rectal narrowing. No evidence of bowel obstruction. 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 - CTchest NAF Suspect GI translocation. No urinary or respiratory symptoms. Started on Zosyn. Blood cultures +gm negative bacilli in 1/4 bottles at 24h. Stool cultures pending. C. difficile pending. - Transferred to ICU, required pressor support. S/p fluid resuscitation + 4 units pRBCs - Continue maintenance fluids Rectal Mass: CT with rectal mass as above - enlarged LNs suggesting localized spread Patient is recommended for treatment where colorectal services are available - to be transferred to [facility] - Some degree of associated blood loss anemia, most recent Hgb 11.3 (following transfusion) schizoaffective disorder Reportedly well-controlled on risperidone, Effexor. Oral meds have been held for critical illness. Restart home meds as appropriate. Pending Studies at Discharge: No Stand-Alone Forms: My [facility] Skilled Items Patient informed of condition?: Yes DNR: No Discharge Level of Care: Other Communicable Disease: No Discharge Prognosis: Deteriorating Lines: Peripheral IV Urinary Catheter: Yes Medications and DC Order Prescriptions: Continued atorvastatin 40 mg tablet 40 mg PO UD Rx Instructions: 40 mg po daily unable to verify; not on med list faxed from [facility] pharmacy 02/03/24 venlafaxine [Effexor XR] 37.5 mg capsule,extended release 24hr 37.5 mg PO QAM venlafaxine [Effexor XR] 75 mg capsule,extended release 24hr 75 mg PO DAILY risperidone 2 mg tablet 2 mg PO HS levothyroxine 50 mcg tablet 50 mcg PO UD Rx Instructions: 50 mcg daily unable to verify; not on med list faxed from [facility] pharmacy 02/03/24 lisinopril 5 mg tablet 5 mg PO UD Rx Instructions: 5 mg po daily unable to verify; not on med list faxed from [facility] pharmacy 02/03/24 metformin 500 mg tablet extended release 24 hr 1,000 mg PO QAM spironolactone 50 mg tablet 50 mg PO DAILY fenofibrate nanocrystallized 48 mg tablet 48 mg PO UD Rx Instructions: 48 mg po daily unable to verify; not on med list faxed from [facility] pharmacy 02/03/24 hydrochlorothiazide 12.5 mg tablet 12.5 mg PO UD Rx Instructions: 12.5 mg po daily unable to verify; not on med list faxed from [facility] pharmacy 02/03/24 carvedilol 12.5 mg Tablet 12.5 mg PO UD Rx Instructions: 12.5 mg po bid On list from pharmacy, last filled 10/09/23 but was returned to stock. Discharge Orders: Discharge Order (Routine); Ordered 02/05/24 Ordered By: Marivel Lloyd Admission Data Admit Date/Time: 02/03/24 19:26 Attending Provider: Douglas Osman Admit Provider: Tristan Somers Primary Care Provider: Gen Morgan Other Providers: Tristan Somers; Rony Vásquez Other Interventions: Discharge Summary Assessment (RN) Last Done: 02/05/24 00:32 Supervising Physician Co-Signing Physician Notes I personally examined the patient and verified all cornelius points of history and exam, discussed case, and agree with decision making with Dr Hayes Feeling better overall. No new complaints. Awaiting bed at [facility] bed is available. Vitals noted. No distress. Breathing unlabored. Exam otherwise as above. Appreciate ICU management. Septic shock and some degree of blood loss anemiahard to gauge how much is acute and chronic of thatrelated to rectal mass and probable bacterial t ranslocation. More stable. Continue current care as far as antibiotics and supportive caretransfer to tertiary for colorectal surgery and IR backup. Otherwise as above. Resident Activity Tracking Resident Involvement: Resident Care Provided Care Provided: Adult Hospital Medicine
--- NOTE | 2024-02-04 17:25 | Billing Data ---
Date of Service February 04, 2024 Coding Level of Care Code 24697 IN/OBS DISCH 30 MIN/LESS
[2024-02-04 19:51] VITALS: TEMP 99
[2024-02-04] MEDS: risperiDONE ODT 0.5 MG SOLTAB PO SCH (20:21)
[2024-02-04 21:01] LABS: BUN Creatinine Ratio 7.4 (10-20); Calcium 7.6 mg/dl (8.6-10.3); Creatinine Clr Calc Pharmacy 152.6 ml/min; Est GFR (African American) 138.9 ml/min; Est GFR (Non-African American) 119.9 ml/min; Potassium 3.5 mmol/L (3.5-5.1)
[2024-02-04 22:04] VITALS: RESP 29; O2SAT 92
[2024-02-05 00:42] VITALS: PULSE 132
[2024-02-05 00:43] VITALS: BP 125/73
--- NOTE | 2024-02-05 06:46 | Hospitalist Progress Note ---
Date of Service February 04, 2024 Assessment & Plan (1) Severe sepsis with septic shock: (2) Lactic acidosis: (3) Rectal mass: (4) Anemia: (5) Hyperkalemia: Plan Septic shock, GI source - CTA/P: Heterogenous mass surrounding the rectum 9.6 x 8.8 cm with rectal gil rowing. No evidence of bowel obstruction. 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 - CTchest NAF Suspect GI translocation. No urinary or respiratory symptoms. Started on Zosyn. Blood cultures +gm negative bacilli in 1/4 bottles at 24h. Stool cultures pending. C. difficile pending. - Transferred to ICU, required pressor support. S/p fluid resuscitation + 4 units pRBCs - Continue maintenance fluids Rectal Mass: CT with rectal mass as above - enlarged LNs suggesting localized spread Patient is recommended for treatment where colorectal services are available - to be transferred to [facility] - Most recent Hgb 11.3 schizoaffective disorder Reportedly well-controlled on risperidone, Effexor. Oral meds have been held for critical illness. Restart home meds as appropriate. Admission and Anticipated Discharge Date Admission Date: February 03, 2024 Subjective Pt seen at bedside, alert and oriented. Pt amenable to transfer. Review of Systems Review of Systems: as per HPI Physical Exam Constitutional: WD/WN, vitals as above Respiratory: Non-labored breathing, no conversational dyspnea appreciated. Skin: no rashes, warm and dry Psychiatric: mood affect congruence Results & Data Results & Data Vital Signs (Past 12 Hours) Vital Signs Temp Pulse Pulse Pulse Resp BP BP 02/05/24 00:40 132 H 02/05/24 00:32 37.2 C 135 H 97 H 29 H 125/74 02/05/24 00:03 134 H 25 H 02/04/24 23:32 125/73 02/04/24 23:32 125/73 02/04/24 23:15 133 H 28 H 02/04/24 23:12 133 H 23 02/04/24 22:32 116/74 02/04/24 22:32 116/74 02/04/24 22:30 131 H 15 02/04/24 22:00 129 H 29 H 02/04/24 21:27 130 H 27 H 119/76 02/04/24 21:09 130 H 21 02/04/24 20:32 122/76 08/01/24 20:18 128 H 25 H 02/04/24 20:00 129 H 24 02/04/24 19:50 37.2 C 02/04/24 19:39 122 H 18 116/71 02/04/24 19:21 127 H 22 02/04/24 19:06 125 H 26 H Pulse Ox 02/05/24 00:40 02/05/24 00:32 92 02/05/24 00:03 95 02/04/24 23:32 02/04/24 23:32 02/04/24 23:15 95 02/04/24 23:12 96 02/04/24 22:32 02/04/24 22:32 02/04/24 22:30 95 02/04/24 22:00 92 02/04/24 21:27 97 02/04/24 21:09 97 02/04/24 20:32 02/04/24 20:18 96 02/04/24 20:00 99 02/04/24 19:50 02/04/24 19:39 95 02/04/24 19:21 98 02/04/24 19:06 94 Resident Activity Tracking Resident Involvement: Resident Care Provided Care Provided: Adult Hospital Medicine (4) Anemia Anemia type: unspecified type Qualified Code(s): D64.9 - Anemia, unspecified
[2024-02-05] MEDS ORDERED: VENLAFAXINE HCL XR 75 MG CAPXR PO SCH (09:00)
[2024-02-05] MEDS ORDERED: VENLAFAXINE HCL XR 37.5 MG CAPXR PO SCH (09:00)
--- NOTE | 2024-02-05 18:26 | Electrocardiogram Report ---
Test Reason : Blood Pressure : / mmHG Vent. Rate : 153 BPM Atrial Rate : 153 BPM P-R Int : 130 ms QRS Dur : 072 ms QT Int : 316 ms P-R-T Axes : 084 057 073 degrees QTc Int : 504 ms Poor data quality, interpretation may be adversely affected Sinus tachycardia Otherwise normal ECG No previous ECGs available Confirmed by Eleno Benz ([id number]) on 02/05/2024 6:25:41 PM Referred By: Gen Morgan Confirmed By:Eleno Benz
== END 2024-02-05 00:43 | disposition short-term general hospital (02) | DRG 871 ==
LOC: ED 11:49 → SUATTDRO 19:26 → 1E 19:26
DX: E11.9 Type 2 diabetes mellitus without complications; E03.9 Hypothyroidism, unspecified; I10 Essential (primary) hypertension; Z79.84 Long term (current) use of oral hypoglycemic drugs; F17.290 Nicotine dependence, other tobacco product, uncomplicated; F25.9 Schizoaffective disorder, unspecified; E87.5 Hyperkalemia; D64.9 Anemia, unspecified; E87.20 Acidosis, unspecified; E87.1 Hypo-osmolality and hyponatremia; R65.21 Severe sepsis with septic shock; Z79.890 Hormone replacement therapy; Z88.6 Allergy status to analgesic agent; Z88.0 Allergy status to penicillin; A41.9 Sepsis, unspecified organism; C79.9 Secondary malignant neoplasm of unspecified site; Z79.899 Other long term (current) drug therapy; C20 Malignant neoplasm of rectum

== ENCOUNTER 2024-03-07 18:17 | Inpatient (IN) ==
--- NOTE | 2024-03-07 18:35 | Emergency Department Note ---
Impression & Plan Acute bilateral obstructive uropathy, Rectal mass, Anemia, Acute hyponatremia ED Provider Note NAME: KEVIN KELLER AGE: 53 SEX: M : 1970 ARRIVES VIA: Ambulance INFORMANT: Patient, EMS ED PROVIDER(S): Reid Garrison DO CHIEF COMPLAINT: Generalized illness HPI: The patient is a 53-year-old male who presented to the emergency department by ambulance for an evaluation of possible sepsis and generalized weakness. The patient had surgery in mid February for colorectal cancer. He has an ostomy. The patient himself denies having any abdominal pain or chest pain. He denies having any nausea or vomiting. Per the prehospital personnel the patient has not been eating or drinking well. They have also noticed rectal bleeding. He does have a pressure ulcer on his lower back. This has been dressed in the usual fashion. The prehospital personnel did give the patient some IV fluids. The patient's been noted to be pale as well by the prehospital personnel. ROS: See above HPI for pertinent positives & negatives. A total of 10 systems reviewed and were otherwise negative. PAST MEDICAL HISTORY: See Below PAST SURGICAL HISTORY: See Below FAMILY HISTORY: See Below SOCIAL HISTORY: See Below HOME MEDICATIONS: See Below ALLERGIES: See Below VITALS: See Below PHYSICAL EXAMINATION: GENERAL: The patient is listless but answers questions appropriately. EYES: The conjunctivae are clear. The pupils are round and reactive. EARS, NOSE, MOUTH AND THROAT: The nose is without any evidence of any deformity. Mucous membranes are dry. NECK: The neck is nontender and supple. RESPIRATORY: Normal respiratory effort is noted there is no evidence of wheezing rhonchi or rales CARDIOVASCULAR: Tachycardic and irregular heart sounds were noted to auscultation. There is no definite murmur. GASTROINTESTINAL: The abdomen was distended. There is diffuse tenderness to palpation. Ostomy was noted in the left side. There was no gross blood noted in the ostomy bag. Rectal exam revealed gross blood per rectum. The patient is unsure if he has a connection there or if this is just a blind pouch from the surgery. MUSCULOSKELETAL/EXTREMITIES: There is no evidence of gross deformity full range of motion is noted in the hips and shoulders. SKIN: There is no obvious evidence of any rash. Skin was cool and dry. Skin was pale. There is no pedal edema. NEUROLOGIC: Patient is awake alert and oriented x3 MEDICAL DECISION MAKING: The patient is a 53-year-old male who presented to the emergency department for an evaluation of not feeling well. The patient has had generalized weakness. He has a history of E. coli bacteremia. The previous cultures were reviewed. The patient was treated with IV fluids and IV antibiotics. He was found to have abdominal pain on physical exam. He is status post diverting colostomy because of a large rectal mass. Initially I thought his pain was secondary to his postoperative state but on CAT scan this appears to be consistent with urinary retention with significant left greater than right obstructive uropathy. The patient a Fox catheter placed. He was treated with IV antibiotics as well as IV fluids. His condition slowly improved. I discussed the patient's laboratory and radiographic studies with him and his sister. [facility] have agreed to evaluate the patient in the emergency department for further management and disposition. Triage Nursing notes reviewed. Prior medical records reviewed Vital Signs: reviewed and remarkable for tachycardia and tachypnea. Differential diagnosis: Viral syndrome, otitis, pharyngitis, pneumonia, influenza, meningitis, urinary tract infection, sepsis, bacteremia, as well as other pathologies. ER treatment provided: See below Diagnostics interpreted by me: ECG: EKG was obtained in the emergency department. My interpretation is sinus tachycardia at 150 bpm. There was no ectopy. Nonspecific ST segment abnormalities were noted. This was compared to a tracing from February 03, 2024. No changes were noted. Cardiac Monitoring: An order was placed for continuous cardiac monitoring. The monitor shows a rate of 130 bpm with sinus tachycardia. Laboratory studies: As stated above and show below. Imaging studies: See below. Radiographic imaging was reviewed by myself Consultation(s): I discussed this case with Dr. Lloyd who [facility] ED COURSE: Procedures: none Critical Care: I have personally spent greater than 55 minutes of critical care time in the direct management of this patient. This includes bedside care, interpretation of diagnostic studies, and testing, discussion with consultants, patient, and family members, and other required patient management activities. This 55 minutes is in excess of all separately billable procedures. Past Med/Surg History Problem List (Updated 03/08/24 @ 00:01 by Reid Garrison DO) Acute hyponatremia (Acute) Anemia (Acute) Rectal mass (Acute) Acute bilateral obstructive uropathy (Acute) High anion gap metabolic acidosis (Acute) Hematochezia (Acute) Hyponatremia Schizophrenia Sepsis Hyperkalemia (Acute) Anemia (Acute) Rectal mass (Acute) Lactic acidosis (Acute) Severe sepsis with septic shock (Acute) Medical History Hypothyroid Social History Smoking Status: Never smoker Do You Dip or Chew Tobacco: Yes; Hx Alcohol Use: No Hx Substance Use: No Preferred Language: Azeri Communication Ability: Effective Four Roll Calender Operator Required: No Beliefs That Will Affect Care: None Current Living Situation: Family Feels Safe at Home: Yes Assistive Devices: None Allergies Allergies Allergy/AdvReac Type Severity Reaction Status Date / Time aspirin Allergy Mild Unknown Unverified 03/07/24 22:24 Penicillins Allergy Mild Unknown Verified 03/07/24 22:24 Home Meds Home Medications Medication Instructions Recorded Confirmed carvedilol 12.5 mg tablet 12.5 mg PO BID 02/03/24 03/07/24 fenofibrate nanocrystallized 48 mg 48 mg PO [facility] 02/03/24 03/07/24 tablet hydrochlorothiazide 12.5 mg tablet 12.5 mg PO [facility] 02/03/24 03/07/24 levothyroxine 50 mcg tablet 50 mcg PO DAILYBB 02/03/24 03/07/24 metformin 500 mg tablet,extended 1,000 mg PO QAM 02/03/24 03/07/24 release 24 hr risperidone 2 mg tablet 2 mg PO HS 02/03/24 03/07/24 spironolactone 50 mg tablet 50 mg PO QAM 02/03/24 03/07/24 venlafaxine 37.5 mg 37.5 mg PO DAILY PRN 02/03/24 03/07/24 capsule,extended release 24 hr depressed/anxious (Effexor XR) venlafaxine 75 mg capsule,extended 75 mg PO QAM 02/03/24 03/07/24 release 24 hr (Effexor XR) apixaban 5 mg tablet (Eliquis) 5 mg PO BID 03/07/24 03/07/24 folic acid 1 mg tablet 1 mg PO QAM 03/07/24 03/07/24 metoprolol tartrate 25 mg tablet 12.5 mg PO BID 03/07/24 03/07/24 sennosides 8.6 mg tablet (senna) 17.2 mg PO HS PRN Constipation 03/07/24 03/07/24 thiamine HCl (vitamin B1) 100 mg 100 mg PO DAILY 03/07/24 03/07/24 tablet Results & Data (ED) Vital Signs Vital Signs - 24 hr 03/07/24 18:25 03/07/24 18:33 03/07/24 19:04 Temperature 37.5 C Temperature Source Oral Pulse Rate 153 H 152 H 142 H Pulse Rate [Apical] Respiratory Rate 21 30 H Respiratory Effort / Characteristics Non-Labored Spontaneous Respiratory Depth Normal Respiratory Pattern Regular Blood Pressure 123/76 Blood Pressure [Left Arm] Blood Pressure Mean 91 Blood Pressure Mean [Left Arm] Pulse Oximetry 98 98 Oxygen Delivery Method Room Air Room Air CPAP Sepsis Recent Fever Within 48 Hours No Sepsis New/Unexplained Change in Mental Status No Sepsis Action Taken by Nursing No Action Required 03/07/24 19:04 03/07/24 19:22 03/07/24 19:30 Temperature Temperature Source Pulse Rate Pulse Rate [Apical] 142 H 146 H 142 H Respiratory Rate 30 H 28 H 32 H Respiratory Effort / Characteristics Respiratory Depth Respiratory Pattern Blood Pressure Blood Pressure [Left Arm] 121/72 110/79 110/74 Blood Pressure Mean Blood Pressure Mean [Left Arm] 88 89 86 Pulse Oximetry 98 99 98 Oxygen Delivery Method Room Air Room Air Room Air Sepsis Recent Fever Within 48 Hours Sepsis New/Unexplained Change in Mental Status Sepsis Action Taken by Nursing 03/07/24 20:30 03/07/24 20:45 03/07/24 21:00 Temperature Temperature Source Pulse Rate Pulse Rate [Apical] 134 H 132 H 144 H Respiratory Rate 32 H 28 H 26 H Respiratory Effort / Characteristics Respiratory Depth Respiratory Pattern Blood Pressure Blood Pressure [Left Arm] 103/69 112/72 96/72 L Blood Pressure Mean Blood Pressure Mean [Left Arm] 80 85 80 Pulse Oximetry 98 98 96 Oxygen Delivery Method Room Air Room Air Room Air Sepsis Recent Fever Within 48 Hours Sepsis New/Unexplained Change in Mental Status Sepsis Action Taken by Nursing 03/07/24 21:15 03/07/24 21:28 03/07/24 21:45 Temperature 36.5 C Temperature Source Oral Pulse Rate Pulse Rate [Apical] 135 H 135 H 132 H Respiratory Rate 24 28 H 28 H Respiratory Effort / Characteristics Respiratory Depth Respiratory Pattern Blood Pressure Blood Pressure [Left Arm] 108/68 103/68 103/65 Blood Pressure Mean Blood Pressure Mean [Left Arm] 81 79 77 Pulse Oximetry 100 98 98 Oxygen Delivery Method Room Air Room Air Room Air Sepsis Recent Fever Within 48 Hours Sepsis New/Unexplained Change in Mental Status Sepsis Action Taken by Nursing 03/07/24 22:00 03/07/24 22:22 Temperature Temperature Source Pulse Rate 131 H Pulse Rate [Apical] 135 H Respiratory Rate 30 H Respiratory Effort / Characteristics Respiratory Depth Respiratory Pattern Blood Pressure Blood Pressure [Left Arm] 101/63 Blood Pressure Mean Blood Pressure Mean [Left Arm] 75 Pulse Oximetry 98 Oxygen Delivery Method Room Air Sepsis Recent Fever Within 48 Hours Sepsis New/Unexplained Change in Mental Status Sepsis Action Taken by [facility] Medications Current Medication List: was personally reviewed by me Laboratory Data Attestation: I reviewed the patient's lab results. 03/07/24 18:35 03/07/24 18:35 Lab Results 03/07/24 03/07/24 03/07/24 Range/Units 18:35 18:43 18:47 WBC 18.96 H (4.8-10.8) K/ul RBC 3.61 L (4.70-6.10) M/uL Hgb 8.9 L (14.0-18.0) g/dl POC Hgb 9.2 L (14.0-18.0) g/dl Hct 27.6 L (42.0-52.0) % POC Hct 27 L (42-52) % MCV 76.5 L (80.0-100.0) fL MCH 24.7 L (25.0-34.0) pg MCHC 32.2 (32.0-36.0) g/dL RDW Std Deviation 52.4 H (36.4-46.3) fL RDW Coeff of Dru 18.8 H (11.5-14.5) % Plt Count 381 (130-400) K/uL MPV 9.2 L (9.4-12.4) fL Immature Gran % (Auto) 1.5 % Neut % (Auto) 93.9 % Lymph % (Auto) 1.3 % [place] % (Auto) 3.1 % Eos % (Auto) 0.0 % Baso % (Auto) 0.2 % Neut # (Auto) 17.81 H (1.40-6.50) K/uL Lymph # (Auto) 0.24 L (1.20-3.40) K/uL [place] # (Auto) 0.58 (0.11-0.59) K/uL Eos # (Auto) 0.00 (0.00-0.50) K/uL Baso # (Auto) 0.04 (0.00-0.20) K/uL Immature Gran # (Auto) 0.29 H (0.01-0.20) K/uL Polychromasia 1+ PT 14.0 H (9.0-12.0) Seconds INR 1.3 H (0.9-1.1) APTT 35 H (21-31) Seconds PTT Ratio 1.3 VBG pH 7.38 (7.36-7.41) VBG pCO2 26 L (38-50) mmHg VBG pO2 54 mmHg VBG HCO3 15 mmol/L VBG O2 Saturation 84.8 % VBG Base Excess -8.0 mEq/L POC Sodium 122 L (135-144) mmol/L Sodium 120 L (136-145) mmol/L POC Potassium 3.8 (3.3-5.0) mmol/L Potassium 3.7 (3.5-5.1) mmol/L POC Chloride 94 L (101-112) mmol/L Chloride 91 L (98-107) mmol/L Carbon Dioxide 16 L (21-32) mmol/L POC Total CO2 15 L (24-31) mmol/L Anion Gap 13 H (3-11) POC Anion Gap 17.0 (16-25) mmol/L POC BUN 34 H (7-18) mg/dl BUN 44 H (6-23) mg/dl Creatinine 2.74 H (0.6-1.4) mg/dl POC Creatinine 3.1 H (0.6-1.3) mg/dl Est Cr Clr Drug Dosing 30.3 ml/min Est GFR ( Amer) 29.3 ml/min Est GFR (Non-Af Amer) 25.3 ml/min BUN/Creatinine Ratio 16.1 (10-20) Glucose 260 H (70-99(Fasting)) mg/dl POC Glucose (other) 266 H (70-99) mg/dl Osmolality 274 L (280-300) mOsm/kg Lactate 3.1 H* (0.4-2.0) mmol/L Calcium 8.4 L (8.6-10.3) mg/dl POC Ioniz Calcium Sina 1.09 L (1.12-1.32) mmol/l Magnesium 2.2 (1.7-2.4) mg/dl Total Bilirubin 0.5 (0.2-1.0) mg/dl Direct Bilirubin 0.0 (0-0.2) mg/dl AST 17 (13-39) U/L ALT 20 (7-52) U/L Alkaline Phosphatase 90 (34-104) U/L Troponin I High Sens 13.0 (0-20) pg/ml Total Protein 6.9 (6.0-8.3) gm/dl Albumin 2.6 L (3.4-5.0) gm/dl Procalcitonin 7.08 H (0-0.5) ng/ml Urine Color Urine Appearance (Clear) Urine pH (4.5-7.5) Ur Specific Viper (1.000-1.030) Urine Protein (Negative) Urine Glucose (UA) (Negative) Urine Ketones (Negative) Urine Blood (Negative) Urine Nitrite (Negative) Urine Bilirubin (Negative) Urine Urobilinogen (Negative) Ur Leukocyte Esterase (Negative) Urine WBC (Auto) (0-5) /hpf Urine RBC (Auto) (0-2) /hpf U Hyaline Cast (Auto) (0-2) /lpf U Epithel Cells (Auto) (0-2) /hpf Urine Bacteria (Auto) (None Seen) Urine Osmolality (500-800) mOsm/kg Ur Random Sodium mmol/L SARS-CoV-2 (PCR) NEGATIVE (Negative) Influenza Type A (PCR) Negative (Neg) Influenza Type B (PCR) Negative (Neg) RSV (RT-PCR) Negative (Neg) Blood Type B Positive Antibody Screen NEGATIVE 03/07/24 03/07/24 Range/Units 20:35 21:17 WBC (4.8-10.8) K/ul RBC (4.70-6.10) M/uL Hgb (14.0-18.0) g/dl POC Hgb (14.0-18.0) g/dl Hct (42.0-52.0) % POC Hct (42-52) % MCV (80.0-100.0) fL MCH (25.0-34.0) pg MCHC (32.0-36.0) g/dL RDW Std Deviation (36.4-46.3) fL RDW Coeff of Dru (11.5-14.5) % Plt Count (130-400) K/uL MPV (9.4-12.4) fL Immature Gran % (Auto) % Neut % (Auto) % Lymph % (Auto) % [place] % (Auto) % Eos % (Auto) % Baso % (Auto) % Neut # (Auto) (1.40-6.50) K/uL Lymph # (Auto) (1.20-3.40) K/uL [place] # (Auto) (0.11-0.59) K/uL Eos # (Auto) (0.00-0.50) K/uL Baso # (Auto) (0.00-0.20) K/uL Immature Gran # (Auto) (0.01-0.20) K/uL Polychromasia PT (9.0-12.0) Seconds INR (0.9-1.1) APTT (21-31) Seconds PTT Ratio VBG pH (7.36-7.41) VBG pCO2 (38-50) mmHg VBG pO2 mmHg VBG HCO3 mmol/L VBG O2 Saturation % VBG Base Excess mEq/L POC Sodium (135-144) mmol/L Sodium (136-145) mmol/L POC Potassium (3.3-5.0) mmol/L Potassium (3.5-5.1) mmol/L POC Chloride (101-112) mmol/L Chloride (98-107) mmol/L Carbon Dioxide (21-32) mmol/L POC Total CO2 (24-31) mmol/L Anion Gap (3-11) POC Anion Gap (16-25) mmol/L POC BUN (7-18) mg/dl BUN (6-23) mg/dl Creatinine (0.6-1.4) mg/dl POC Creatinine (0.6-1.3) mg/dl Est Cr Clr Drug Dosing ml/min Est GFR ( Amer) ml/min Est GFR (Non-Af Amer) ml/min BUN/Creatinine Ratio (10-20) Glucose (70-99(Fasting)) mg/dl POC Glucose (other) (70-99) mg/dl Osmolality (280-300) mOsm/kg Lactate 2.5 H* (0.4-2.0) mmol/L Calcium (8.6-10.3) mg/dl POC Ioniz Calcium Sina (1.12-1.32) mmol/l Magnesium (1.7-2.4) mg/dl Total Bilirubin (0.2-1.0) mg/dl Direct Bilirubin (0-0.2) mg/dl AST (13-39) U/L ALT (7-52) U/L Alkaline Phosphatase (34-104) U/L Troponin I High Sens (0-20) pg/ml Total Protein (6.0-8.3) gm/dl Albumin (3.4-5.0) gm/dl Procalcitonin (0-0.5) ng/ml Urine Color Dark Yellow Urine Appearance Clear (Clear) Urine pH 5.5 (4.5-7.5) Ur Specific [place] 1.015 (1.000-1.030) Urine Protein 1+ H (Negative) Urine Glucose (UA) Trace H (Negative) Urine Ketones Negative (Negative) Urine Blood 2+ H (Negative) Urine Nitrite Negative (Negative) Urine Bilirubin Negative (Negative) Urine Urobilinogen Negative (Negative) Ur Leukocyte Esterase Negative (Negative) Urine WBC (Auto) 0-5 (0-5) /hpf Urine RBC (Auto) 6-10 H (0-2) /hpf U Hyaline Cast (Auto) 3-5 H (0-2) /lpf U Epithel Cells (Auto) 0-2 (0-2) /hpf Urine Bacteria (Auto) None Seen (None Seen) Urine Osmolality 336 L (500-800) mOsm/kg Ur Random Sodium 10 mmol/L SARS-CoV-2 (PCR) (Negative) Influenza Type A (PCR) (Neg) Influenza Type B (PCR) (Neg) RSV (RT-PCR) (Neg) Blood Type Antibody Screen Administered Medications Sodium Chloride (Nss) 1,000 mls @ 999 mls/hr IV .Q1H1M ONE Stop: 03/08/24 00:18 Last Admin: 03/07/24 23:30 Dose: 999 mls/hr Documented By: ZIGGY Discontinued Medications Sodium Chloride (Nss) 1,000 mls @ 999 mls/hr IV .Q1H1M BHAKTI Stop: 03/07/24 20:30 Last Infusion: 03/07/24 21:34 Dose: Infused Documented By: Admin: 03/07/24 19:47 Dose: 999 mls/hr Documented By: Infusion: 03/07/24 19:46 Dose: Infused Documented By: Admin: 03/07/24 18:42 Dose: 999 mls/hr Documented By: SHAYNE Cefepime HCl 1,000 mg/ Syringe 10 mls @ 5 mls/min IV NOW STA; Protocol Stop: 03/07/24 18:49 Last Admin: 03/07/24 19:05 Dose: 5 mls/min Documented By: ZIGGY Metronidazole (Flagyl) 500 mg in 100 mls @ 100 mls/hr IV NOW STA; Protocol Stop: 03/07/24 19:47 Last Infusion: 03/07/24 20:14 Dose: Infused Documented By: Admin: 03/07/24 19:06 Dose: 100 mls/hr Documented By: ZIGGY Sodium Chloride (Nss) 1,000 mls @ 999 mls/hr IV .Q1H1M ONE Stop: 03/07/24 20:50 Last Infusion: 03/07/24 23:24 Dose: Infused Documented By: Admin: 03/07/24 21:34 Dose: 999 mls/hr Documented By: ZIGGY Imaging Data Attestation: I personally reviewed and interpreted this imaging study as follows: My Impression: CT of the abdomen and pelvis was obtained in the emergency department. My interpretation is obstructive uropathy with urinary retention. There was a large rectal mass, final report below. CT of the chest was obtained in the emergency department. My interpretation was no free air or definite infiltrate, final report below. Radiologist's Impression: Abdomen/Pelvis CT 03/07/24 18:45 Exam(s): CT ABDOMEN + PELVIS Without Contrast EXAM: CT Abdomen and Pelvis Without Intravenous Contrast CLINICAL HISTORY: Reason for exam: weakness. TECHNIQUE: Axial computed tomography images of the abdomen and pelvis without intravenous contrast. CTDI is 9.95 mGy and DLP is 694.48 mGy-cm. Automated exposure control was utilized for the study. A dose lowering technique was utilized adhering to the principles of ALARA. COMPARISON: No relevant prior studies available. FINDINGS: Lung bases: Atelectasis in the lower lobes. Trace pleural effusions. ABDOMEN: Liver: Unremarkable. Gallbladder and bile ducts: Cholelithiasis. No cholecystitis. Pancreas: Sequela of chronic pancreatitis. Spleen: Unremarkable. Adrenals: Unremarkable. Kidneys and ureters: Moderate obstructive changes in the left kidney and mild obstructive changes in the right kidney. Likely related to the mass. Stomach and bowel: Large rectal mass within the pelvis measuring at least 15 x 10 x 12 cm. The inferior extent of the mass is not imaged on this study. Left lower quadrant colostomy. No bowel obstruction. PELVIS: Appendix: No findings to suggest acute appendicitis. Bladder: Unremarkable. Reproductive: Unremarkable as visualized. ABDOMEN and PELVIS: Intraperitoneal space: Unremarkable. No free air. No significant fluid collection. Bones/joints: No acute fracture. Soft tissues: Unremarkable. Vasculature: Unremarkable. Lymph nodes: Unremarkable. IMPRESSION: 1. Large rectal mass within the pelvis measuring at least 15 x 10 x 12 cm. The inferior extent of the mass is not imaged on this study. 2. Moderate obstructive changes in the left kidney and mild obstructive changes in the right kidney. Likely related to the mass. Electronically signed by: Juan C Vance MD 03/07/24 22:[address] 03/07/24 18:45 Exam(s): CT CHEST Without Contrast EXAM: CT Chest Without Intravenous Contrast CLINICAL HISTORY: Reason for exam: weakness. TECHNIQUE: Axial computed tomography images of the chest without intravenous contrast. CTDI is 9.95 mGy and DLP is 694.48 mGy-cm. Automated exposure control was utilized for the study. A dose lowering technique was utilized adhering to the principles of ALARA. COMPARISON: No relevant prior studies available. FINDINGS: Lungs: Atelectasis within the lower lobes. No evidence of pneumonia. Pleural space: Trace left pleural effusion. Heart: Trace pericardial effusion. Bones/joints: No acute findings. Soft tissues: Unremarkable. Vasculature: Unremarkable. Lymph nodes: Unremarkable. IMPRESSION: 1. Atelectasis within the lower lobes. No evidence of pneumonia. 2. Trace left pleural effusion. 3. Trace pericardial effusion. Electronically signed by: Juan C Vance MD 03/07/24 22:29 PM Discharge Plan Visit Data Chief Complaint: Illness ED Provider: Reid Garrison Discharge Problem: Acute bilateral obstructive uropathy, Rectal mass, Anemia, Acute hyponatremia Patient Disposition: Being Evaluated by Hospitalist Forms Stand Alone Forms: My [facility] Prescriptions Prescriptions: No Action sennosides [senna] 8.6 mg tablet 17.2 mg PO HS PRN (Reason: Constipation) thiamine HCl (vitamin B1) 100 mg tablet 100 mg PO DAILY folic acid 1 mg tablet 1 mg PO QAM metoprolol tartrate 25 mg tablet 12.5 mg PO BID Eliquis 5 mg tablet 5 mg PO BID venlafaxine [Effexor XR] 37.5 mg capsule,extended release 24hr 37.5 mg PO DAILY PRN (Reason: depressed/anxious) venlafaxine [Effexor XR] 75 mg capsule,extended release 24hr 75 mg PO QAM risperidone 2 mg tablet 2 mg PO HS levothyroxine 50 mcg tablet 50 mcg PO DAILYBB metformin 500 mg tablet extended release 24 hr 1,000 mg PO QAM spironolactone 50 mg tablet 50 mg PO QAM fenofibrate nanocrystallized 48 mg tablet 48 mg PO QAM hydrochlorothiazide 12.5 mg tablet 12.5 mg PO QAM carvedilol 12.5 mg Tablet 12.5 mg PO BID Referrals Referrals: Gen Morgan [Primary Care Provider] - Discharge Problem: Anemia Qualifiers: Anemia type: unspecified type Qualified Code(s): D64.9 - Anemia, unspecified
[2024-03-07] MEDS: SODIUM CHLORIDE 0.9% 1,000 ML IV SCH (18:42)
[2024-03-07 18:47] LABS: HCO3 VBG 15 mmol/L; Oxygen Saturation VBG 84.8 %; PCO2 VBG 26 mmHg (38-50); PO2 VBG 54 mmHg; pH VBG 7.38 (7.36-7.41)
[2024-03-07 18:56] LABS: iSTAT Creatinine 3.1 mg/dl (0.6-1.3); iSTAT Hemoglobin 9.2 g/dl (14.0-18.0); iSTAT Ionized Calcium 1.09 mmol/l (1.12-1.32); iSTAT Potassium 3.8 mmol/L (3.3-5.0)
[2024-03-07] MEDS: CEFEPIME 1,000 MG in SYRINGE 0 ML IV STA (19:05)
[2024-03-07] MEDS: metroNIDAZOLE 500 MG/100 ML BAG IV STA (19:06)
[2024-03-07 19:08] LABS: Albumin Level 2.6 gm/dl (3.4-5.0); BUN Creatinine Ratio 16.1 (10-20); Bilirubin,Total 0.5 mg/dl (0.2-1.0); Calcium 8.4 mg/dl (8.6-10.3); Creatinine Clr Calc Pharmacy 30.3 ml/min; Est GFR (African American) 29.3 ml/min; Est GFR (Non-African American) 25.3 ml/min; Magnesium 2.2 mg/dl (1.7-2.4); Potassium 3.7 mmol/L (3.5-5.1); Total Protein 6.9 gm/dl (6.0-8.3)
[2024-03-07 19:09] LABS: Hematocrit (blood only) 27.6 % (42.0-52.0); Hemoglobin 8.9 g/dl (14.0-18.0); Mean Corpuscular Hemoglobin 24.7 pg (25.0-34.0); Mean Corpuscular Hgb Conc 32.2 g/dL (32.0-36.0); Mean Corpuscular Volume 76.5 fL (80.0-100.0); Mean Platelet Volume 9.2 fL (9.4-12.4); Platelet Count 381 K/uL (130-400); RDW Coefficient of Variation 18.8 % (11.5-14.5); RDW Standard Deviation 52.4 fL (36.4-46.3); Red Blood Count 3.61 M/uL (4.70-6.10); White Blood Count 18.96 K/ul (4.8-10.8)
[2024-03-07 19:18] LABS: INR 1.3 (0.9-1.1); Partial Thromboplastin Ratio 1.3; Partial Thromboplastin Time 35 Seconds (21-31)
[2024-03-07 19:26] LABS: Basophils # (auto) 0.04 K/uL (0.00-0.20); Basophils % (auto) 0.2 %; Immature Granulocytes # (auto) 0.29 K/uL (0.01-0.20); Immature Granulocytes % (auto) 1.5 %; Lymphocytes # (auto) 0.24 K/uL (1.20-3.40); Lymphocytes % (auto) 1.3 %; Monocytes # (auto) 0.58 K/uL (0.11-0.59); Monocytes % (auto) 3.1 %; Neutrophils # (auto) 17.81 K/uL (1.40-6.50); Neutrophils % (auto) 93.9 %; Polychromasia 1+
[2024-03-07 19:48] LABS: Influenza A virus by PCR Negative (Neg); Influenza B virus by PCR Negative (Neg); RSV by PCR Negative (Neg); SARS CoV2 RNA(COVID-19) Ceph NEGATIVE (Negative)
[2024-03-07 21:31] LABS: Appearance Urine Clear (Clear); Bacteria Urine Automated None Seen (None Seen); Bilirubin Urine Negative (Negative); Blood Urine 2+ (Negative); Color Urine Dark Yellow; Epithelial Cell Urine Auto 0-2 /hpf (0-2); Glucose Urine UA Trace (Negative); Ketones Urine Negative (Negative); Leukocyte Esterase Urine Negative (Negative); Nitrite Urine Negative (Negative); Protein Urine 1+ (Negative); Specific Gravity Urine 1.015 (1.000-1.030); Urobilinogen Urine Negative (Negative); WBC Urine Automated 0-5 /hpf (0-5); pH Urine 5.5 (4.5-7.5)
[2024-03-07] MEDS: SODIUM CHLORIDE 0.9% 1,000 ML IV ONE ×2 (21:34→23:30)
--- NOTE | 2024-03-07 22:28 | CT Scan Report ---
Exam(s): CT ABDOMEN + PELVIS Without Contrast EXAM: CT Abdomen and Pelvis Without Intravenous Contrast CLINICAL HISTORY: Reason for exam: weakness. TECHNIQUE: Axial computed tomography images of the abdomen and pelvis without intravenous contrast. CTDI is 9.95 mGy and DLP is 694.48 mGy-cm. Automated exposure control was utilized for the study. A dose lowering technique was utilized adhering to the principles of ALARA. COMPARISON: No relevant prior studies available. FINDINGS: Lung bases: Atelectasis in the lower lobes. Trace pleural effusions. ABDOMEN: Liver: Unremarkable. Gallbladder and bile ducts: Cholelithiasis. No cholecystitis. Pancreas: Sequela of chronic pancreatitis. Spleen: Unremarkable. Adrenals: Unremarkable. Kidneys and ureters: Moderate obstructive changes in the left kidney and mild obstructive changes in the right kidney. Likely related to the mass. Stomach and bowel: Large rectal mass within the pelvis measuring at least 15 x 10 x 12 cm. The inferior extent of the mass is not imaged on this study. Left lower quadrant colostomy. No bowel obstruction. PELVIS: Appendix: No findings to suggest acute appendicitis. Bladder: Unremarkable. Reproductive: Unremarkable as visualized. ABDOMEN and PELVIS: Intraperitoneal space: Unremarkable. No free air. No significant fluid collection. Bones/joints: No acute fracture. Soft tissues: Unremarkable. Vasculature: Unremarkable. Lymph nodes: Unremarkable. IMPRESSION: 1. Large rectal mass within the pelvis measuring at least 15 x 10 x 12 cm. The inferior extent of the mass is not imaged on this study. 2. Moderate obstructive changes in the left kidney and mild obstructive changes in the right kidney. Likely related to the mass. Electronically signed by: Juan C Vacne MD 03/07/24 22:27 PM
--- NOTE | 2024-03-07 22:30 | CT Scan Report ---
Exam(s): CT CHEST Without Contrast EXAM: CT Chest Without Intravenous Contrast CLINICAL HISTORY: Reason for exam: weakness. TECHNIQUE: Axial computed tomography images of the chest without intravenous contrast. CTDI is 9.95 mGy and DLP is 694.48 mGy-cm. Automated exposure control was utilized for the study. A dose lowering technique was utilized adhering to the principles of ALARA. COMPARISON: No relevant prior studies available. FINDINGS: Lungs: Atelectasis within the lower lobes. No evidence of pneumonia. Pleural space: Trace left pleural effusion. Heart: Trace pericardial effusion. Bones/joints: No acute findings. Soft tissues: Unremarkable. Vasculature: Unremarkable. Lymph nodes: Unremarkable. IMPRESSION: 1. Atelectasis within the lower lobes. No evidence of pneumonia. 2. Trace left pleural effusion. 3. Trace pericardial effusion. Electronically signed by: Juan C Vance MD 03/07/24 22:29 PM
--- NOTE | 2024-03-08 00:59 | History & Physical Report ---
Date of Service March 08, 2024 Assessment & Plan (1) Acute bilateral obstructive uropathy: Plan: 53yo male presenting with urinary retention secondary to acute bilateral obstructive uropathy likely from patient's large rectal mass. Fox catheter has been placed and there is clear, yellow urine in the bag. -Maintain Fox catheter -Monitor strict intake and output -Patient is to be seen in [place] later this week to discuss/plan definitive management for his rectal mass. Would reach out in AM to see if they would accept him as transfer after acute issues resolve. (2) Acute kidney injury: Plan: Patient with BUDDY - BUN=44 and Cr=2.74 (most recently 4 and 0.54, respectively, on 02/04/24). Likely secondary to acute obstructive uropathy as above. Possible pre-renal azotemia contributing as well - patient with poor oral intake of late, does appear dry on exam. He is on Spironolactone and HCTZ as well. Patient has been sufficiently volume resuscitated with crystalloid Albumin x 250mL as well Ordered 2u PRBCs Renal function on repeat labs has improved, Cr=1.[address] with UOP -Monitor strict I/Os -Renal dosing where needed -Avoid nephrotoxic agents (3) Anemia: Plan: Patient reports bloody rectal discharge. Hgb on arrival = 8.9. Acute drop on repeat labs to 6.9 most likely dilutional rather than acute blood loss anemia. -Transfuse 2u PRBCs -Repeat CBC post transfusion (4) Sepsis: Plan: Patient with sepsis present on admission. Tachycardia/sinus, elevated WBC=18.96, Elevated procalcitonin=7.08, Elevated lactate=2.5 which has since resolved following fluids. Multiple sources likely - intra-abdominal with large rectal mass, possible translocation, recent surgery -Follow cultures obtained in the ER -Continue empiric antibiotics for now - Cefepime/Flagyl and Daptomycin -Tylenol PRN pain or fever -Patient with significant tachycardia response - sinus with no significant ectopy. No evidence of ischemia. Multifactorial - sinus tachycardia secondary to infection, dehydration, anemia, electrolyte abnormalities all contributing. Will correct underlying medical issues as able and reassess HR (5) Rectal mass: Plan: Discovered during last admission. Patient has been seen at [facility] by Colorectal surgery - has had a diverting colostomy (assuming - no records available as of yet). He is to follow with them later this week for further m anagement planning. -Request records -Ostomy management q shift (6) Acute hyponatremia: Plan: Mf=[id number] on arrival - did correct to 131 following infusion of NSS -Monitor closely (7) Schizophrenia: Plan: Chronic. Stable -Continue home Venlafaxine -Continue Risperdal Plan Diabetes - chronic -Lantus 7u daily -ISS -Goal blood sugar 110 - 180 Hypothyroidism - chronic -Continue Synthroid F/E/N - PRBCs ordered. Patient has received adequate crystalloid. K repletion - repeat BMP in AM, Calcium administered, CC diet as tolerated Ppx - Heparin 5000u BID Code - Full Dispo - Admit to PCU History of Present Illness Chief Complaint: decreased UOP Primary Care Provider: Gen Morgan Brian Denney is a pleasant 53yo male with history of schizophrenia, HTN presenting with difficulty urinating. Patient was recently admitted to [facility] from 02/02 - 02/04/24 after presenting with significant unintentional weight loss of 40# over the last 6 months. He was septic and hypotensive on arrival. 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 Patient was managed in the MICU for septic shock with antibiotics, fluid, 4u PRBCs and intermittent use of pressors. Blood cultures from 02/03/24 POSITIVE for agustin- sensitive E-coli. He was ultimately transferred to [facility] for evaluation by colorectal surgery. No paperwork as of yet from [facility] admission - per patient, he had a diverting colostomy placed. He is scheduled to followup in [place] later this week for management of his rectal mass. Patient presents today with difficulty urinating x 1 day. Also with poor oral i ntake of late. He reports rectal output that his occasionally bloody. Otherwise, patient denies chest pain, cough, SOB, abdominal pain, nausea, vomiting, diarrhea. Patient had a CT of the abdomen in the ER which revealed urinary retention with significant left greater than right obstructive uropathy. A Fox catheter was placed with 2L UOP. ER Course: NSS x 4L Cefepime 1gm Flagyl 500mg IV Calcium gluconate 2gm IV LR at 125mL/hr Albumin 5% x 250mL Daptomycin 425mg 2u PRBCs ordered for Hgb drop to 6.9 LR requested to be stopped Allergies Allergy/AdvReac Type Severity Reaction Status Date / Time aspirin Allergy Mild Unknown Unverified 03/07/24 22:24 Penicillins Allergy Mild Unknown Verified 03/07/24 22:24 Home Medications Medication Instructions Recorded Confirmed Type carvedilol 12.5 mg tablet 12.5 mg PO BID 02/03/24 03/07/24 History fenofibrate nanocrystallized 48 mg 48 mg PO QAM 02/03/24 03/07/24 History tablet hydrochlorothiazide 12.5 mg tablet 12.5 mg PO QAM 02/03/24 03/07/24 History levothyroxine 50 mcg tablet 50 mcg PO DAILYBB 02/03/24 03/07/24 History metformin 500 mg tablet,extended 1,000 mg PO QAM 02/03/24 03/07/24 History release 24 hr risperidone 2 mg tablet 2 mg PO HS 02/03/24 03/07/24 History spironolactone 50 mg tablet 50 mg PO QAM 02/03/24 03/07/24 History venlafaxine 37.5 mg 37.5 mg PO DAILY PRN 02/03/24 03/07/24 History capsule,extended release 24 hr depressed/anxious (Effexor XR) venlafaxine 75 mg capsule,extended 75 mg PO QAM 02/03/24 03/07/24 History release 24 hr (Effexor XR) apixaban 5 mg tablet (Eliquis) 5 mg PO BID 03/07/24 03/07/24 History folic acid 1 mg tablet 1 mg PO QAM 03/07/24 03/07/24 History metoprolol tartrate 25 mg tablet 12.5 mg PO BID 03/07/24 03/07/24 History sennosides 8.6 mg tablet (senna) 17.2 mg PO HS PRN Constipation 03/07/24 03/07/24 History thiamine HCl (vitamin B1) 100 mg 100 mg PO DAILY 03/07/24 03/07/24 History tablet Past Med/Surg History Problem List (Updated 03/08/24 @ 04:50 by Marivel Lloyd DO) Acute kidney injury Acute blood loss anemia Acute hyponatremia (Acute) Anemia (Acute) Rectal mass (Acute) Acute bilateral obstructive uropathy (Acute) High anion gap metabolic acidosis (Acute) Hematochezia (Acute) Hyponatremia Schizophrenia Sepsis Hyperkalemia (Acute) Anemia (Acute) Rectal mass (Acute) Lactic acidosis (Acute) Severe sepsis with septic shock (Acute) Medical History Hypothyroid Social History Smoking Status: Never smoker Do You Dip or Chew Tobacco: Yes; Hx Alcohol Use: No Hx Substance Use: No Preferred Language: Niuean Communication Ability: Effective Engineering Technical Specialist Required: No Beliefs That Will Affect Care: None Current Living Situation: Family Other Information That Helps Us Care for You: No Feels Safe at Home: Yes Safety Concerns: Feels Safe At This Time Assistive Devices: Glasses Review of Systems Review of Systems: All systems reviewed & are unremarkable except as noted in HPI & below Physical Exam Physical Exam: General: patient ill in appearance, somnolent but arousable, slow to answer questions, oriented to self only Skin: sacral ulcer present, no rash HEENT: NC/AT, PERRL, EOMI, anicteric sclera, conjunctiva without injection, external ear normal to inspection and nontender, nares patent, dry mucus membranes, dentition intact, no oropharyngeal lesions, neck supple, trachea midline, no LAD, no thyromegaly, no JVD Heart: +S1/S2, regular, tachycardic, no m/r/g Lungs: equal air entry bilaterally, no rales/rhonchi/wheezes Abd: +BS diminished, soft, NT, colostomy in place Ext: warm, 2+ pulses in UE/LE bilaterally, no clubbing/cyanosis or edema Neuro: nonfocal, patient somnolent, arousable, oriented x 1 Patient re-evaluated at 04:00 - still with tachycardia, HR 150's. Mental state has significantly improved. Patient brighter, more attentive and able to answer questions. Reports that he feels improved Results & Data Results & Data Vital Signs (Past 12 Hours) Vital Signs Temp Pulse Pulse Resp BP BP Pulse Ox 03/08/24 00:50 134 H 28 H 98/59 L 96 03/08/24 00:35 82 L 03/07/24 22:22 131 H 03/07/24 22:00 135 H 30 H 101/63 98 03/07/24 21:45 36.5 C 132 H 28 H 103/65 98 03/07/24 21:28 135 H 28 H 103/68 98 03/07/24 21:15 135 H 24 108/68 100 03/07/24 21:00 144 H 26 H 96/72 L 96 03/07/24 20:45 132 H 28 H 112/72 98 03/07/24 20:30 134 H 32 H 103/69 98 03/07/24 19:30 142 H 32 H 110/74 98 03/07/24 19:22 146 H 28 H 110/79 99 03/07/24 19:04 142 H 30 H 121/72 98 03/07/24 19:04 142 H 30 H 98 03/07/24 18:33 37.5 C 152 H 21 123/76 98 03/07/24 18:25 153 H O2 Del Method O2 Flow Rate 03/08/24 00:50 Nasal Cannula 4 03/08/24 00:35 Room Air 03/07/24 22:22 03/07/24 22:00 Room Air 03/07/24 21:45 Room Air 03/07/24 21:28 Room Air 03/07/24 21:15 Room Air 03/07/24 21:00 Room Air 03/07/24 20:45 Room Air 03/07/24 20:30 Room Air 03/07/24 19:30 Room Air 03/07/24 19:22 Room Air 03/07/24 19:04 Room Air 03/07/24 19:04 Room Air, CPAP 03/07/24 18:33 Room Air 03/07/24 18:25 Laboratory Results Laboratory Results WBC 13.96 K/ul (4.8-10.8) H 03/08/24 03:36 RBC 2.76 M/uL (4.70-6.10) L 03/08/24 03:36 Hgb 6.9 g/dl (14.0-18.0) L* 03/08/24 03:36 POC Hgb 9.2 g/dl (14.0-18.0) L 03/07/24 18:43 Hct 21.3 % (42.0-52.0) L 03/08/24 03:36 POC Hct 27 % (42-52) L 03/07/24 18:43 MCV 77.2 fL (80.0-100.0) L 03/08/24 03:36 MCH 25.0 pg (25.0-34.0) 03/08/24 03:36 MCHC 32.4 g/dL (32.0-36.0) 03/08/24 03:36 RDW Std Deviation 53.3 fL (36.4-46.3) H 03/08/24 03:36 RDW Coeff of Dru 18.8 % (11.5-14.5) H 03/08/24 03:36 Plt Count 330 K/uL (130-400) 03/08/24 03:36 MPV 9.1 fL (9.4-12.4) L 03/08/24 03:36 Immature Gran % (Auto) 0.9 % 03/08/24 03:36 Neut % (Auto) 93.5 % 03/08/24 03:36 Lymph % (Auto) 2.0 % 03/08/24 03:36 [place] % (Auto) 3.4 % 03/08/24 03:36 Eos % (Auto) 0.1 % 03/08/24 03:36 Baso % (Auto) 0.1 % 03/08/24 03:36 Neut # (Auto) 13.07 K/uL (1.40-6.50) H 03/08/24 03:36 Lymph # (Auto) 0.28 K/uL (1.20-3.40) L 03/08/24 03:36 [place] # (Auto) 0.47 K/uL (0.11-0.59) 03/08/24 03:36 Eos # (Auto) 0.01 K/uL (0.00-0.50) 03/08/24 03:36 Baso # (Auto) 0.01 K/uL (0.00-0.20) 03/08/24 03:36 Immature Gran # (Auto) 0.12 K/uL (0.01-0.20) 03/08/24 03:36 RBC Morphology Unremarkable 03/08/24 03:36 Polychromasia 1+ 03/07/24 18:35 PT 14.0 Seconds (9.0-12.0) H 03/07/24 18:35 INR 1.3 (0.9-1.1) H 03/07/24 18:35 APTT 35 Seconds (21-31) H 03/07/24 18:35 PTT Ratio 1.3 03/07/24 18:35 VBG pH 7.33 (7.36-7.41) L 03/08/24 03:36 VBG pCO2 31 mmHg (38-50) L 03/08/24 03:36 VBG pO2 39 mmHg 03/08/24 03:36 VBG HCO3 16 mmol/L 03/08/24 03:36 VBG O2 Saturation < 60.0 % 03/08/24 03:36 VBG Base Excess -8.4 mEq/L 03/08/24 03:36 POC Sodium 122 mmol/L (135-144) L 03/07/24 18:43 Sodium 131 mmol/L (136-145) L D 03/08/24 03:36 POC Potassium 3.8 mmol/L (3.3-5.0) 03/07/24 18:43 Potassium 2.9 mmol/L (3.5-5.1) L D 03/08/24 03:36 POC Chloride 94 mmol/L (101-112) L 03/07/24 18:43 Chloride 104 mmol/L (98-107) 03/08/24 03:36 Carbon Dioxide 18 mmol/L (21-32) L 03/08/24 03:36 POC Total CO2 15 mmol/L (24-31) L 03/07/24 18:43 Anion Gap 9 (3-11) 03/08/24 03:36 POC Anion Gap 17.0 mmol/L (16-25) 03/07/24 18:43 POC BUN 34 mg/dl (7-18) H 03/07/24 18:43 BUN 25 mg/dl (6-23) H 03/08/24 03:36 Creatinine 1.34 mg/dl (0.6-1.4) D 03/08/24 03:36 POC Creatinine 3.1 mg/dl (0.6-1.3) H 03/07/24 18:43 Est Cr Clr Drug Dosing 61.9 ml/min 03/08/24 03:36 Est GFR ( Amer) 69.6 ml/min 03/08/24 03:36 Est GFR (Non-Af Amer) 60.1 ml/min 03/08/24 03:36 BUN/Creatinine Ratio 18.7 (10-20) 03/08/24 03:36 Glucose 168 mg/dl (70-99(Fasting)) H 03/08/24 03:36 POC Glucose (other) 266 mg/dl (70-99) H 03/07/24 18:43 Osmolality 274 mOsm/kg (280-300) L 03/07/24 18:35 Lactate 1.7 mmol/L (0.4-2.0) 03/08/24 03:36 Calcium 8.0 mg/dl (8.6-10.3) L 03/08/24 03:36 POC Ioniz Calcium Sina 1.09 mmol/l (1.12-1.32) L 03/07/24 18:43 Ionized Calcium 1.24 mmol/L (1.12-1.32) 03/08/24 03:36 Magnesium 2.2 mg/dl (1.7-2.4) 03/07/24 18:35 Total Bilirubin 0.5 mg/dl (0.2-1.0) 03/07/24 18:35 Direct Bilirubin 0.0 mg/dl (0-0.2) 03/07/24 18:35 AST 17 U/L (13-39) 03/07/24 18:35 ALT 20 U/L (7-52) 03/07/24 18:35 Alkaline Phosphatase 90 U/L (34-104) 03/07/24 18:35 Troponin I High Sens 13.0 pg/ml (0-20) 03/07/24 18:35 Total Protein 6.9 gm/dl (6.0-8.3) 03/07/24 18:35 Albumin 2.6 gm/dl (3.4-5.0) L 03/07/24 18:35 Procalcitonin 7.08 ng/ml (0-0.5) H 03/07/24 18:35 Urine Color Dark Yellow 03/07/24 21:17 Urine Appearance Clear (Clear) 03/07/24 21:17 Urine pH 5.5 (4.5-7.5) 03/07/24 21:17 Ur Specific Maxwell 1.015 (1.000-1.030) 03/07/24 21:17 Urine Protein 1+ (Negative) H 03/07/24 21:17 Urine Glucose (UA) Trace (Negative) H 03/07/24 21:17 Urine Ketones Negative (Negative) 03/07/24 21:17 Urine Blood 2+ (Negative) H 03/07/24 21:17 Urine Nitrite Negative (Negative) 03/07/24 21:17 Urine Bilirubin Negative (Negative) 03/07/24 21:17 Urine Urobilinogen Negative (Negative) 03/07/24 21:17 Ur Leukocyte Esterase Negative (Negative) 03/07/24 21:17 Urine WBC (Auto) 0-5 /hpf (0-5) 03/07/24 21:17 Urine RBC (Auto) 6-10 /hpf (0-2) H 03/07/24 21:17 U Hyaline Cast (Auto) 3-5 /lpf (0-2) H 03/07/24 21:17 U Epithel Cells (Auto) 0-2 /hpf (0-2) 03/07/24 21:17 Urine Bacteria (Auto) None Seen (None Seen) 03/07/24 21:17 Urine Osmolality 336 mOsm/kg (500-800) L 03/07/24 21:17 Ur Random Sodium 10 mmol/L 03/07/24 21:17 Nasal Screen MRSA (PCR) Negative (Negative) 03/08/24 02:36 SARS-CoV-2 (PCR) NEGATIVE (Negative) 03/07/24 18:47 Influenza Type A (PCR) Negative (Neg) 03/07/24 18:47 Influenza Type B (PCR) Negative (Neg) 03/07/24 18:47 RSV (RT-PCR) Negative (Neg) 03/07/24 18:47 Blood Type B Positive 03/07/24 18:35 Antibody Screen NEGATIVE 03/07/24 18:35 Crossmatch See Detail 03/07/24 18:35 Impressions Abdomen/Pelvis CT 03/07/24 18:45 Exam(s): CT ABDOMEN + PELVIS Without Contrast EXAM: CT Abdomen and Pelvis Without Intravenous Contrast CLINICAL HISTORY: Reason for exam: weakness. TECHNIQUE: Axial computed tomography images of the abdomen and pelvis without intravenous contrast. CTDI is 9.95 mGy and DLP is 694.48 mGy-cm. Automated exposure control was utilized for the study. A dose lowering technique was utilized adhering to the principles of ALARA. COMPARISON: No relevant prior studies available. FINDINGS: Lung bases: Atelectasis in the lower lobes. Trace pleural effusions. ABDOMEN: Liver: Unremarkable. Gallbladder and bile ducts: Cholelithiasis. No cholecystitis. Pancreas: Sequela of chronic pancreatitis. Spleen: Unremarkable. Adrenals: Unremarkable. Kidneys and ureters: Moderate obstructive changes in the left kidney and mild obstructive changes in the right kidney. Likely related to the mass. Stomach and bowel: Large rectal mass within the pelvis measuring at least 15 x 10 x 12 cm. The inferior extent of the mass is not imaged on this study. Left lower quadrant colostomy. No bowel obstruction. PELVIS: Appendix: No findings to suggest acute appendicitis. Bladder: Unremarkable. Reproductive: Unremarkable as visualized. ABDOMEN and PELVIS: Intraperitoneal space: Unremarkable. No free air. No significant fluid collection. Bones/joints: No acute fracture. Soft tissues: Unremarkable. Vasculature: Unremarkable. Lymph nodes: Unremarkable. IMPRESSION: 1. Large rectal mass within the pelvis measuring at least 15 x 10 x 12 cm. The inferior extent of the mass is not imaged on this study. 2. Moderate obstructive changes in the left kidney and mild obstructive changes in the right kidney. Likely related to the mass. Electronically signed by: Juan C Vance MD 03/07/24 22:[address] 03/07/24 18:45 Exam(s): CT CHEST Without Contrast EXAM: CT Chest Without Intravenous Contrast CLINICAL HISTORY: Reason for exam: weakness. TECHNIQUE: Axial computed tomography images of the chest without intravenous contrast. CTDI is 9.95 mGy and DLP is 694.48 mGy-cm. Automated exposure control was utilized for the study. A dose lowering technique was utilized adhering to the principles of ALARA. COMPARISON: No relevant prior studies available. FINDINGS: Lungs: Atelectasis within the lower lobes. No evidence of pneumonia. Pleural space: Trace left pleural effusion. Heart: Trace pericardial effusion. Bones/joints: No acute findings. Soft tissues: Unremarkable. Vasculature: Unremarkable. Lymph nodes: Unremarkable. IMPRESSION: 1. Atelectasis within the lower lobes. No evidence of pneumonia. 2. Trace left pleural effusion. 3. Trace pericardial effusion. Electronically signed by: Juan C Vance MD 03/07/24 22:29 PM ECG Additional Comments: sinus tachycardia, no ischemic changes Code Status & VTE Plan VTE Prophylaxis Plan VTE Prophylaxis will be ordered: Yes PG Care Time/CCT Total # of Minutes Spent Total Time Spent with Patient: Total time spent is greater than 50% in coordination of care (as documented) at patient's floor/unit and/or counseling patient: Coding Level of Care Code 02970 INT INP/OBS CARE 3/75MIN Diagnoses Acute bilateral obstructive uropathy N13.9 Acute kidney injury N17.9 Anemia D64.9 Anemia type: unspecified type Sepsis A41.9 Rectal mass K62.89 Acute hyponatremia E87.1 Schizophrenia F20.9 (3) Anemia Anemia type: unspecified type Qualified Code(s): D64.9 - Anemia, unspecified
[2024-03-08] MEDS ORDERED: GLUCAGON FOR INJ 1 MG VIAL SQ PRN (02:02)
[2024-03-08] MEDS ORDERED: GLUCOSE 40% GEL 15 GM TUBE PO PRN (02:02)
[2024-03-08] MEDS ORDERED: ONDANSETRON INJ 2 MG/ML 2 ML VIAL IV PRN (02:02)
[2024-03-08] MEDS ORDERED: GLUCOSE 10 TAB/TUBE PO PRN (02:02)
[2024-03-08] MEDS ORDERED: DEXTROSE 50% 50 ML SYRINGE IV PRN (02:02)
[2024-03-08] MEDS ORDERED: SENNA 8.6 MG TAB PO PRN (02:02)
[2024-03-08] MEDS ORDERED: CARBOHYDRATES FOR HYPOGLYCEMIA PO PRN (02:02)
[2024-03-08] MEDS: CALCIUM GLUCONATE 1,000 MG/60 ML BAG IV SCH (02:27)
[2024-03-08] MEDS: LACTATED RINGER'S 1,000 ML IV SCH (02:28)
[2024-03-08] MEDS: DAPTOmycin 425 MG in SYRINGE 0 ML IV SCH (03:46)
[2024-03-08] MEDS: ALBUMIN 5% 250 ML IV ONE (03:46)
[2024-03-08 04:03] LABS: Base Excess VBG -8.4 mEq/L; HCO3 VBG 16 mmol/L; Oxygen Saturation VBG < 60.0 %; PCO2 VBG 31 mmHg (38-50); PO2 VBG 39 mmHg; pH VBG 7.33 (7.36-7.41)
[2024-03-08] MEDS: metroNIDAZOLE 500 MG/100 ML BAG IV SCH (04:04)
[2024-03-08 04:15] LABS: Hematocrit (blood only) 21.3 % (42.0-52.0); Hemoglobin 6.9 g/dl (14.0-18.0); Mean Corpuscular Hgb Conc 32.4 g/dL (32.0-36.0); Mean Corpuscular Volume 77.2 fL (80.0-100.0); Mean Platelet Volume 9.1 fL (9.4-12.4); Platelet Count 330 K/uL (130-400); RDW Coefficient of Variation 18.8 % (11.5-14.5); RDW Standard Deviation 53.3 fL (36.4-46.3); Red Blood Count 2.76 M/uL (4.70-6.10); White Blood Count 13.96 K/ul (4.8-10.8)
[2024-03-08 04:23] LABS: BUN Creatinine Ratio 18.7 (10-20); Basophils # (auto) 0.01 K/uL (0.00-0.20); Basophils % (auto) 0.1 %; Creatinine Clr Calc Pharmacy 61.9 ml/min; Eosinophils # (auto) 0.01 K/uL (0.00-0.50); Eosinophils % (auto) 0.1 %; Est GFR (African American) 69.6 ml/min; Est GFR (Non-African American) 60.1 ml/min; Immature Granulocytes # (auto) 0.12 K/uL (0.01-0.20); Immature Granulocytes % (auto) 0.9 %; Lymphocytes # (auto) 0.28 K/uL (1.20-3.40); Monocytes # (auto) 0.47 K/uL (0.11-0.59); Monocytes % (auto) 3.4 %; Neutrophils # (auto) 13.07 K/uL (1.40-6.50); Neutrophils % (auto) 93.5 %; Potassium 2.9 mmol/L (3.5-5.1); RBC Morphology Unremarkable
[2024-03-08] MEDS ORDERED: SODIUM CHLORIDE 0.9% 250 ML IV PRN (04:31)
[2024-03-08] MEDS: POTASSIUM CHLORIDE CRTAB 20 MEQ TABCR PO STA (04:47)
[2024-03-08] MEDS: LEVOTHYROXINE SODIUM 50 MCG TABLET PO SCH (06:06)
[2024-03-08] MEDS: CEFEPIME 1,000 MG in SYRINGE 0 ML IV SCH (06:06)
[2024-03-08 06:42] LABS: Dohle Bodies 1+
--- NOTE | 2024-03-08 07:04 | XRay Report ---
XR chest 1V portable HISTORY: 53 years-old Male Sepsis COMPARISON: 03/07/[address] TECHNIQUE: AP view of the chest FINDINGS: Cardiomediastinal and hilar silhouettes are within normal limits. No pneumothorax or overt pulmonary edema. Small left and trace right pleural effusions. Minimal bibasilar densities. The bones appear gr ossly intact. IMPRESSION: Small left and trace right pleural effusions with mild bibasilar atelectasis. ACT 112: Negative or not required by law. The above report was generated using voice recognition software. It may contain grammatical, syntax o r spelling errors. Electronically signed by: Delvis Holman M.D. 03/08/2024 7:03 AM
[2024-03-08 07:11] LABS: A calco-baum cmplx NotReported Not Detected (NotDetected); Bact fragilis Not Reported Not Detected (NotDetected); Blood Culture Id Panel See PCR Comment (NotDetected); C auris Not Reported Not Detected (NotDetected); CTX-M Resistant Gene Not Detected (NotDetected); Calbicans Not Reported Not Detected (NotDetected); Candida glabrata Not Reported Not Detected (NotDetected); Candida krusei Not Reported Not Detected (NotDetected); Cneoformans/gatti Not Reported Not Detected (NotDetected); Cparapsilosis Not Reported Not Detected (NotDetected); E cloacae compx Not Reported Not Detected (NotDetected); Efaecalis Not Reported Not Detected (NotDetected); Efaecium Not Reported Not Detected (NotDetected); Enterobacterales DETECTED (NotDetected); Enterobacterales Not Reported DETECTED (NotDetected); Escherichia coli Not Reported DETECTED (NotDetected); H influenzae Not Reported Not Detected (NotDetected); IMP Resistant Gene Not Detected (NotDetected); K aerogenes Not Reported Not Detected (NotDetected); KPC Resistant Gene Not Detected (NotDetected); Koxytoca Not Reported Not Detected (NotDetected); Kpneumoniae grp Not Reported Not Detected (NotDetected); Lmonocyt Not Reported Not Detected (NotDetected); N meningitidis Not Reported Not Detected (NotDetected); NDM Resistant Gene Not Detected (NotDetected); OXA 48 Like Resistant Gene Not Detected (NotDetected); P aeruginosa Not Reported Not Detected (NotDetected); Proteus spp Not Reported Not Detected (NotDetected); Salmonella spp Not Reported Not Detected (NotDetected); Staph lugdunensis Not Reported Not Detected (NotDetected); Staph spp. Not Reported Not Detected (NotDetected); Staphaureus Not Reported Not Detected (NotDetected); Staphepi Not Reported Not Detected (NotDetected); Stenmaltophilia Not Reported Not Detected (NotDetected); Strep agal(GrpB) Not Reported Not Detected (NotDetected); Strep pneum Not Reported Not Detected (NotDetected); Strep pyog (GrpA) Not Reported Not Detected (NotDetected); Strep spp Not Reported Not Detected (NotDetected); VIM Resistant Gene Not Detected (NotDetected); mcr-1 Colistin Resistant Gene Not Detected (NotDetected)
--- NOTE | 2024-03-08 08:08 | Hospitalist Progress Note ---
Date of Service March 08, 2024 Assessment & Plan (1) Acute blood loss anemia: (2) Acute hyponatremia: (3) Acute kidney injury: (4) Rectal mass: (5) Anemia: (6) Acute bilateral obstructive uropathy: Plan Acute bilateral obstructive uropathy 53yo male presenting with urinary retention secondary to acute bilateral obstructive uropathy likely from patient's large rectal mass. Fox catheter has been placed and there is clear, yellow urine in the bag. -Maintain Fox catheter -Monitor strict intake and output -Patient is to be seen in [place] later this week to discuss/plan definitive management for his rectal mass. Will investigate possibility of transfer to [facility] as patient stabilizes Acute kidney injury -Patient with BUDDY - BUN=44 and Cr=2.74 (most recently 4 and 0.54, respectively, on 02/04/24). Likely secondary to acute obstructive uropathy as above. Possible pre-renal azotemia contributing as well - patient with poor oral intake of late, appeared dry on exam at time of admission. Home meds include Spironolactone and HCTZ as well. -Patient has been sufficiently volume resuscitated with crystalloid and received Albumin x 250mL Anemia -Patient reports bloody rectal discharge. Hgb on arrival = 8.9. Acute drop on repeat labs to 6.9 most likely dilutional rather than acute blood loss anemia. -Received 2u PRBCs, post-transfusion Hgb 8.8 -Repeat H&H ordered for 17:00 Sepsis -Patient with sepsis present on admission. Multiple sources likely - intra- abdominal with large rectal mass, possible translocation, recent surgery -Blood culture obtained in the ER, results showing gram negative bacilli -Initially received Cefepime/Flagyl and Daptomycin, now de-escalated to Ceftriaxone per culture results -Tylenol PRN pain or fever -Patient with significant tachycardia response - sinus with no significant ectopy. No evidence of ischemia. Multifactorial - sinus tachycardia secondary to infection, dehydration, anemia, electrolyte abnormalities all contributing. -Restarted home metoprolol 25mg BID and will continue ongoing maintenance IVF Rectal Mass -Discovered during last admission. Patient has been seen at [facility] [place] by Colorectal surgery - has had a diverting colostomy (no records available as of yet). He is to follow with them later this week for further management planning. Pending clinical stability, consider reaching out to [facility] for further management later in admission. Patient reports he was to establish with a local oncologist to begin radiation -Request records -Ostomy management q shift Acute Hyponatremia -Na 120 on arrival - corrected to 131 overnight -Repeat BMP ordered this afternoon, maintenance IV fluids ongoing Schizophrenia -Continue home Venlafaxine -Continue Risperdal Diabetes, Type 2 -Lantus 7u daily -ISS -Goal blood sugar 110-180 Hypothyroidism -Continue Synthroid Ppx - Heparin 5000u BID Code - Full Dispo - PCU Admission and Anticipated Discharge Date Admission Date: March 08, 2024 Supervising Physician Co-Signing Physician Notes ATTESTATION I also saw the patient and confirmed cornelius portions of the history and exam. I agree with the impression and plan in the resident documentation, and as summarized below. Upon reevaluation around noon, the patient is looking better. He is awake and alert. He tells us that he feels much better than he did upon presentation. Hemodynamically, he still slightly tachycardic; his systolic blood pressure is around 100s, but this trends up through the afternoon. EXAM Blood pressure 100 systolic, trending up over the afternoon to 116/71 at 1510 Remains tachycardic, sinus tach [id number] He really has no complaints; denies feeling of tachycardia. Denies chest pain or shortness of breath. Upon auscultation tachycardic but regular Lungs are clear with respirations Abdomen is soft and nontender. There is some leaking around the ostomy site. DATA Labs Hemoglobin 6.9, status post 2 units of packed red blood cells repeat hemoglobin is Hemoglobin 8.8 Sodium 131, potassium 2.9, BUN 25, creatinine 1.[address] scan performed 03/07/2024 shows a large rectal mass within the pelvis measuring at least 15 x 10 x 12 cm. There is moderate obstructive changes in the left kidney and mild obstructive changes in the right kidney suspected to be secondary to the mass Micro Blood cultures collected 03/07/2024 showed gram-negative bacilli. IMPRESSION & PLAN Acute bilateral obstructive uropathy secondary to rectal mass Status post diverting colostomy secondary to rectal mass Acute kidney injury secondary to obstructive uropathy Acute on chronic anemia Gram-negative sepsis Acute hypernatremia, improving Hypokalemia Clinically, he looks improved this afternoon compared to admission. I suspect his tachycardia is partially that he still little dry, may be having some rebound tachycardia secondary to his beta-blockers being held. Now that his systolic pressure has improved, we can give him some low-dose beta-blockade to see if we get his heart rate down a little bit. Will also give him a 500 cc bolus then maintenance; further fluids based on clinical assessment. With blood culture showing gram-negative bacilli, will narrow antibiotics coverage. Replete potassium and recheck potassium and sodium; closely monitor renal function. May need transfer back to [facility] for definitive care. Additional per resident documentation Subjective Patient was seen and examined at bedside. He has no acute complaints at present, states he overall feels "better" than when he was admitted. Notes that he has had some "issues" with his ostomy, states that nothing came out of it for a few days but it is working now. States he has been home from [facility] for >1 week. Denies shortness of breath, chest pain, dizziness or lightheadedness. Notes his heart will beat "fast" but doesn't note any palpitations. Endorses some diffiuclty with urination in the past few days with some discomfort. States he lives with his parents at home and uses a walker to get around. Review of Systems Review of Systems: As per above Physical Exam Constitutional: WD/WN, vitals as above Eyes: + anicteric sclerae; no conjunctival abn ormality ENMT: Ears: no external ear abnormality Nose: no external nose abnormality Moist mucous membranes Respiratory: normal respiratory effort, lungs clear to auscultation Cardiovascular: Rate/Rhythm: regular rhythm and + tachycardic Extremities: no edema Gastrointestinal (Abdomen): Abdomen soft, nondistended. Ostomy in place with output present, no blood or dark/red color in output visible. No extending erythema beyond ostomy Skin: no rashes, warm and dry Psychiatric: Orientation: alert and oriented x 3 Genitourinary: Fox catheter in patient Results & Data Results & Data Vital Signs (Past 12 Hours) Vital Signs Temp Pulse Pulse Resp BP BP Pulse Ox 03/08/24 07:07 36.6 C 145 H 14 104/64 97 03/08/24 07:04 138 H 03/08/24 06:07 139 H 24 105/63 99 03/08/24 05:37 137 H 24 98/57 L 98 03/08/24 05:22 37.1 C 140 H 24 94/58 L 99 09/03/24 05:01 36.7 C 137 H 24 98/86 L 98 03/08/24 03:10 152 H 18 108/62 94 03/08/24 02:34 03/08/24 02:32 150 H 30 H 97/55 L 100 03/08/24 02:03 146 H 03/08/24 00:50 134 H 28 H 98/59 L 96 03/08/24 00:35 82 L 03/07/24 22:22 131 H 03/07/24 22:00 135 H 30 H 101/63 98 03/07/24 21:45 36.5 C 132 H 28 H 103/65 98 03/07/24 21:28 135 H 28 H 103/68 98 03/07/24 21:15 135 H 24 108/68 100 03/07/24 21:00 144 H 26 H 96/72 L 96 03/07/24 20:45 132 H 28 H 112/72 98 03/07/24 20:30 134 H 32 H 103/69 98 Pulse Ox O2 Del Method O2 Del Method O2 Flow Rate O2 Flow Rate 03/08/24 07:07 03/08/24 07:04 03/08/24 06:07 03/08/24 05:37 03/08/24 05:22 03/08/24 05:01 03/08/24 03:10 Room Air 03/08/24 02:34 100 Nasal Cannula 2 03/08/24 02:32 Nasal Cannula 2 03/08/24 02:03 03/08/24 00:50 Nasal Cannula 4 03/08/24 00:35 Room Air 03/07/24 22:22 03/07/24 22:00 Room Air 03/07/24 21:45 Room Air 03/07/24 21:28 Room Air 03/07/24 21:15 Room Air 03/07/24 21:00 Room Air 03/07/24 20:45 Room Air 03/07/24 20:30 Room Air Resident Activity Tracking Resident Involvement: Resident Care Provided Care Provided: Adult Hospital Medicine (5) Anemia Anemia type: unspecified type Qualified Code(s): D64.9 - Anemia, unspecified
[2024-03-08] MEDS: THIAMINE HCL 100 MG TAB PO SCH (08:16)
[2024-03-08] MEDS: VENLAFAXINE HCL XR 75 MG CAPXR PO SCH (08:17)
[2024-03-08] MEDS: INSULIN ASPART PER UNIT CHARGE SC SCH (09:24)
[2024-03-08] MEDS: HEPARIN SOD 5,000 UNIT/0.5 ML VIAL SQ SCH (09:25)
[2024-03-08] MEDS: LANTUS PER UNIT CHARGE SQ SCH (09:39)
[2024-03-08] MEDS: SODIUM CHLORIDE 0.9% 500 ML IV ONE (12:16)
[2024-03-08] MEDS: SODIUM CHLORIDE 0.9% 1,000 ML IV SCH (12:16)
[2024-03-08 12:33] LABS: Hematocrit (blood only) 26.8 % (42.0-52.0); Hemoglobin 8.8 g/dl (14.0-18.0)
[2024-03-08] MEDS: cefTRIAXone SODIUM 2,000 MG/50 ML BAG IV SCH (14:00)
--- NOTE | 2024-03-08 15:57 | Electrocardiogram Report ---
Test Reason : Blood Pressure : */* mmHG Vent. Rate : 150 BPM Atrial Rate : 150 BPM P-R Int : 120 ms QRS Dur : 80 ms QT Int : 268 ms P-R-T Axes : 47 36 45 degrees QTcB Int : 423 ms Sinus tachycardia Possible Lateral infarct , age undetermined Abnormal ECG When compared with ECG of 03-Feb-2024 11:59, Nonspecific T wave abnormality now evident in Inferior leads Confirmed by Micheal Serna ([id number]) on 03/08/2024 3:56:42 PM Referred By: REFERRED SELF Confirmed By: Micheal Serna
[2024-03-08 17:21] LABS: Hematocrit (blood only) 28.7 % (42.0-52.0); Hemoglobin 9.5 g/dl (14.0-18.0)
[2024-03-08 17:40] LABS: BUN Creatinine Ratio 14.5 (10-20); Calcium 8.1 mg/dl (8.6-10.3); Creatinine Clr Calc Pharmacy 133.7 ml/min; Est GFR (African American) 131.3 ml/min; Est GFR (Non-African American) 113.3 ml/min; Potassium 3.1 mmol/L (3.5-5.1)
[2024-03-08] MEDS: METOPROLOL TARTRATE 1 MG/ML VIAL IV STA (18:32)
[2024-03-08] MEDS: POTASSIUM CHLORIDE / WTR 10 MEQ/100 ML PLCT IV SCH (18:33)
[2024-03-08] MEDS: risperiDONE 2 MG TABLET PO SCH (21:12)
[2024-03-08] MEDS: METOPROLOL TARTRATE 25 MG TAB PO SCH (21:12)
[2024-03-09] MEDS: METOPROLOL TARTRATE 25 MG TAB PO ONE (00:06)
[2024-03-09 00:15] LABS: Hematocrit (blood only) 31.6 % (42.0-52.0); Hemoglobin 10.2 g/dl (14.0-18.0)
[2024-03-09] MEDS: METOPROLOL TARTRATE 1 MG/ML VIAL IV STA (03:06)
[2024-03-09 07:38] LABS: BUN Creatinine Ratio 12.8 (10-20); Calcium 7.7 mg/dl (8.6-10.3); Creatinine Clr Calc Pharmacy 178.9 ml/min; Est GFR (African American) 147.1 ml/min; Est GFR (Non-African American) 126.9 ml/min; Potassium 3.2 mmol/L (3.5-5.1)
--- NOTE | 2024-03-09 07:48 | Hospitalist Progress Note ---
Date of Service March 09, 2024 Assessment & Plan (1) Sepsis: Plan: -Patient with sepsis present on admission. Multiple sources likely - intra- abdominal with large rectal mass, possible translocation, recent surgery -Blood culture obtained in the ER, final results still pending but preliminary results are showing gram negative bacilli -Initially received Cefepime/Flagyl and Daptomycin, now de-escalated to Ceftriaxone alone with Flagyl per culture results -Tylenol PRN pain or fever -Patient with significant tachycardia response - sinus with no significant ectopy. No evidence of ischemia. Multifactorial - sinus tachycardia secondary to infection, dehydration, anemia, electrolyte abnormalities all contributing. -Restarted home metoprolol 25mg BID and will continue ongoing maintenance IVF. In the setting of continued WBC elevated, recent hospitalization, recent surgery, and antibiotic use, C diff cannot be ruled out. -Test for C Diff Increase the dose of Metoprolol now that blood pressure has stabilize for management of heart rate. Could also be a result of possible other bacteremia like C diff. Tests ordered to rule out. (2) Acute bilateral obstructive uropathy: Plan: William catheter has been placed and there is clear, yellow urine in the bag. Was emptied last night with 850mL of urine. -Maintain William catheter -Monitor strict intake and output -Patient hopes to be seen this week in [place] to discuss/plan definitive management for his rectal mass. Will investigate possibility of transfer to [facility] as patient stabilizes once acute problems resolve. (3) Rectal mass: Plan: Rectal mass was discovered during last admission to the [facility] ED via CT scan. Patient has been seen at [facility] [place] by Colorectal surgery - has had a diverting colostomy (no records available as of yet). He is to follow with them later this week for further management planning. Pending clinical stability, consider reaching out to [facility] for further management later in admission. Patient reports he was to establish with a local oncologist to begin radiation. -Request records to assess for oncology consult as well as the feasibility of transferring patient back to [place] for care in regards to rectal mass, radiation, and chemotherapy. (4) Acute blood loss anemia: Plan: Hgb on arrival = 8.9. Acute drop on repeat labs to 6.9 yesterday and most recent H&H provides value of 10.2 L. Was given PRBC's for blood loss. Continue to monitor (5) Acute hyponatremia: Plan: -Na 120 on arrival to the emergency department. The sodium is at 130 with little change overnight (from 132). IV Fluids are being given as maintenance. Continue to monitor. Check BMP. -Order chest Xray to assess volume status. Present on Admission?: Yes (6) Acute kidney injury: Plan: -Patient preented to ED with BUDDY BUN=44 and Cr=2.74 at admission. Today, BUN = 6 Creatinine = 0.47. Greatly improved. Patient has william and is producing yellow urine. More IV Fluids were given yesterday. Likely secondary to acute obstructive uropathy as above. Possible pre-renal azotemia contributing as well -Patient notes more oral fluid intake. Home meds include Spironolactone and HCTZ as well. (7) Anemia: Plan: -Patient reports bloody rectal discharge. Hgb on arrival = 8.9. Acute drop on repeat labs to 6.9 most likely dilutional rather than acute blood loss anemia. Today Hbg levels are at 9.9. -Received 2u PRBCs, post-transfusion Hgb 8.8, today it is at 9.9. (8) Hypokalemia: Plan: Patient's electrolytes revealed hypokalemia and hypomagnesia. After reviewing BMP from last night, K was 3.1 (3.2 yesterday). Magnesium was also low as reflected from the BMP. Both magnesium and potassium to be given to patient. C heck BMP to assess electrolyte levels. Plan Acute bilateral obstructive uropathy 53yo male presenting with urinary retention secondary to acute bilateral obstructive uropathy likely from patient's large rectal mass. William catheter has been placed and there is clear, yellow urine in the bag. -Maintain William catheter -Monitor strict intake and output -Patient is to be seen in [place] later this week to discuss/plan definitive management for his rectal mass. Will investigate possibility of transfer to [facility] as patient stabilizes Acute kidney injury -Patient with BUDDY - BUN=44 and Cr=2.74 (most recently 4 and 0.54, respectively, on 02/04/24). Likely secondary to acute obstructive uropathy as above. Possible pre-renal azotemia contributing as well - patient with poor oral intake of late, appeared dry on exam at time of admission. Home meds include Spironolactone and HCTZ as well. -Patient has been sufficiently volume resuscitated with crystalloid and received Albumin x 250mL Anemia -Patient reports bloody rectal discharge. Hgb on arrival = 8.9. Acute drop on repeat labs to 6.9 most likely dilutional rather than acute blood loss anemia. -Received 2u PRBCs, post-transfusion Hgb 8.8 -Repeat H&H ordered for 17:00 Sepsis -Patient with sepsis present on admission. Multiple sources likely - intra- abdominal with large rectal mass, possible translocation, recent surgery -Blood culture obtained in the ER, results showing gram negative bacilli -Initially received Cefepime/Flagyl and Daptomycin, now de-escalated to Ceftriaxone per culture results -Tylenol PRN pain or fever -Patient with significant tachycardia response - sinus with no significant ectopy. No evidence of ischemia. Multifactorial - sinus tachycardia secondary to infection, dehydration, anemia, electrolyte abnormalities all contributing. -Restarted home metoprolol 25mg BID and will continue ongoing maintenance IVF Rectal Mass -Discovered during last admission. Patient has been seen at [facility] [place] by Colorectal surgery - has had a diverting colostomy (no records available as of yet). He is to follow with them later this week for further management planning. Pending clinical stability, consider reaching out to [facility] for further management later in admission. Patient reports he was to establish with a local oncologist to begin radiation -Request records -Ostomy management q shift Acute Hyponatremia -Na 120 on arrival - corrected to 131 overnight -Repeat BMP ordered this afternoon, maintenance IV fluids ongoing Schizophrenia -Continue home Venlafaxine -Continue Risperdal Diabetes, Type 2 -Lantus 7u daily -ISS -Goal blood sugar 110-180 Hypothyroidism -Continue Synthroid Ppx - Heparin 5000u BID Code - Full Dispo - PCU Admission and Anticipated Discharge Date Admission Date: March 08, 2024 Supervising Physician Co-Signing Physician Notes ATTESTATION I also saw the patient and confirmed cornelius portions of the history and exam. I agree with the impression and plan in the medical student/resident documentation, and as summarized below. The patient is seen this morning in his second floor room. He actually looks quite well. He is pleasant, awake; fully oriented. He really has no complaints. He does note that the output in his colostomy is more liquid than usual; previously, had been more of a sludgelike consistency. He denies having any chest pain or shortness of breath. While he remains somewhat tachycardic, he does not feel this. He thinks his heart rate is always on the "fast side," but unfortunately, his PCP notes are not in the EMR to document his baseline rate. EXAM 119/78, 127, 20, 36.7, 97% on room air Alert and oriented. No distress appreciated. Neck supple Heart tachycardic but regular Lungs clear thigh respirations Abdomen is soft and nontender. With firm palpation all quadrants and I cannot elicit any tenderness. His ostomy bag has been changed. There is no leakage as there was previous DATA Labs WBC 18.46, Hgb 9.9 Sodium 130, potassium 3.2, BUN 6, creatinine 0.47 Magnesium 1.[address] scan performed 03/07/2024 shows a large rectal mass within the pelvis measuring at least 15 x 10 x 12 cm. There is moderate obstructive changes in the left kidney and mild obstructive changes in the right kidney suspected to be secondary to the mass Micro Blood cultures collected 03/07/2024 showed gram-negative bacilli; Speciation and sensitivity are pending IMPRESSION & PLAN Acute bilateral obstructive uropathy secondary to rectal mass Status post diverting colostomy secondary to rectal mass Acute kidney injury secondary to obstructive uropathy, resolved Acute on chronic anemia, improved and stable S/P transfusion Gram-negative sepsis, hemodynamically stable, speciation and sensitivity pending Acute hypernatremia, improving Hypokalemia Hypomagnesemia Clinically, he continues to look better; hemodynamically he is stable except for the continued tachycardia. However, WBC and CRP are up today. On exam, he seems euvolemic; given high ostomy output, he could still be a little dry. Recommend checking C. difficile. Check TSH. Increase beta blockers (home dose). Will also need to confirm if he is indeed on both Metoprolol and Coreg. Should have speciation and sensitivities back later today; just antibiotic coverage if needed. Follow clinically; consider reimaging if WBC/CRP continue to rise or if he has clinical deterioration Replete electrolyte deficiencies and monitor renal function. May need transfer back to [facility] for definitive care. Additional per resident documentation Subjective RW is a 53-year-old male with a rectal mass with colostomy bag placement three weeks ago. He presented to the ED yesterday evening with weakness and trouble urinating and blood noted in the rectum. He reported reduced fluid intake and difficulty urinating over the past 5 or 6 days. He was seen by a doctor in [place] who advised him to report to the ED. The patient was previously hospitalized (02/02-02/04/24) and a CT scan during that admission revealed a large rectal mass. He was treated for septic shock and transferred to [facility], where he reports having a diverting colostomy placed. In the ED at this visit, a CT showed bilateral obstructive uropathy, more severe on the left side. Large rectal mass within the pelvis. Being treated for sepsis, anemia, hyponatremia, and BUDDY. A William catheter was placed, he received IV fluids, broad-spectrum IV antibiotics and given packed red blood cells. Yesterday, he was switched to Ceftriaxone IV 2000 mg in 50 mls @ 100 mlq/hr. and remained on Flagyl, was given IV Fluids, and Metoprolol. Flagyl IV was also continued. Metoprolol was administered overnight, and he was given another 12.5 mg dose close to 12 AM and was given another dose this morning. Telemetry noted that heart rate was in the 130s overnight. Patient was asked about their appetite, eating habits, and fluid intake. Noted that he is eating less while he has been in the hospital and trying to maintain fluid intake. Today patient denies chills, sweats, stomach or GI pain, nausea, vomiting, chest pain, changes in skin at the site of the ostomy bag or palpitations. He does note that he gets dizzy when he stands up too quickly and has been helped with getting up and ambulating. He plans to follow up with [facility] regarding his rectal mass. Last night, the nurse reported watery bowel in the bag as well as a one episode of nickel sized blood clot in the stool with scattered blood in the bag. Review of Systems Review of Systems: HPI: All systems reviewed and are unremarkable except as noted in the HPI above. Does report that he feels improved overall. Physical Exam Constitutional: Patient is oriented to time and place. He takes a few pauses before responding but is able to answer questions and notes that he feels improved overall. Respiratory: Lungs are clear to auscultation bilaterally with no labored breathing noted. No wheezes, crackles, or rhonci Cardiovascular: Tachycardic rate, normal rhythm, no murmurs, rubs, or gallops (s1 and s2 heard). Gastrointestinal (Abdomen): No tenderness to palpation. No rigidity, guarding or rebound tenderness. Colostomy bag on the left side, less than half-filled with bowel. Site of bag is not erythamteous or leaking. There is no blood noted in the bag and it was recently emptied. Skin: no rashes, warm and dry There is slight erythema at the umbilicus near colostomy bag adhesive Neurologic: awake Psychiatric: Alert and oriented. No focal deficits noted. Results & Data Results & Data Vital Signs (Past 12 Hours) Vital Signs Temp Pulse Pulse Resp BP BP Pulse Ox 03/09/24 07:03 36.9 C 132 H 20 117/76 96 03/09/24 03:45 113 H 03/09/24 03:06 130 H 123/79 03/09/24 02:22 36.7 C 124 H 18 123/79 99 03/08/24 22:31 36.9 C 129 H 18 120/70 99 03/08/24 22:07 124 H 03/08/24 20:01 134 H 03/08/24 20:00 O2 Del Method 03/09/24 07:03 Room Air 03/09/24 03:45 03/09/24 03:06 03/09/24 02:22 Room Air 03/08/24 22:31 Room Air 03/08/24 22:07 03/08/24 20:01 03/08/24 20:00 Room Air Laboratory Results WBC from 13.96 to 18.46 H Hbg was 6.9 now 10.9 to 9.9 L Hct was 21.3 to 31.9 to 30.2 LO Na was 132 now 130 L K from 3.1 to 3.2 L BUN and Creatinine was 25 and 1.34 and then came back as 9 and 0.62. On labs this morning, they were 6 and 0.47 respectively. Glucose has dropped from 168 to 96 to 63 as of this morning's labs. Insulin Gargine (7 units was administered this morning after labs were completed) Diagnostic Findings Imaging CT scan performed 03/07/2024 shows a large rectal mass within the pelvis measuring at least 15 x 10 x 12 cm. There is moderate obstructive changes in the left kidney and mild obstructive changes in the right kidney suspected to be secondary to the mass Micro Blood cultures collected 03/07/2024 showed preliminary gram-negative bacilli as of yeserday. Resident Activity Tracking Resident Involvement: Resident Care Provided Care Provided: Adult Hospital Medicine (7) Anemia Anemia type: unspecified type Qualified Code(s): D64.9 - Anemia, unspecified
[2024-03-09 08:31] LABS: Hematocrit (blood only) 30.2 % (42.0-52.0); Hemoglobin 9.9 g/dl (14.0-18.0); Mean Corpuscular Hemoglobin 25.8 pg (25.0-34.0); Mean Corpuscular Hgb Conc 32.8 g/dL (32.0-36.0); Mean Corpuscular Volume 78.9 fL (80.0-100.0); Mean Platelet Volume 8.8 fL (9.4-12.4); Platelet Count 316 K/uL (130-400); RDW Standard Deviation 52.3 fL (36.4-46.3); Red Blood Count 3.83 M/uL (4.70-6.10); White Blood Count 18.46 K/ul (4.8-10.8)
[2024-03-09 08:33] LABS: Magnesium 1.4 mg/dl (1.7-2.4)
[2024-03-09] MEDS: POTASSIUM CHLORIDE / WTR 10 MEQ/100 ML PLCT IV SCH ×2 (08:39→19:34)
[2024-03-09] MEDS: MAGNESIUM SULFATE / D5W 1 GM/100 ML BAG IV SCH (09:50)
[2024-03-09 10:14] LABS: C Reactive Protein 32.39 mg/dl (0-0.5)
[2024-03-09] MEDS ORDERED: carvediloL 6.25 MG TAB PO SCH (17:00)
[2024-03-09] MEDS: SODIUM CHLORIDE 0.9% 500 ML IV ONE (17:04)
[2024-03-09 17:24] LABS: BUN Creatinine Ratio 10.9 (10-20); Calcium 7.8 mg/dl (8.6-10.3); Creatinine Clr Calc Pharmacy 182.8 ml/min; Est GFR (African American) 148.4 ml/min; Potassium 3.4 mmol/L (3.5-5.1)
[2024-03-09] MEDS: DAPTOmycin 425 MG in SYRINGE 0 ML IV SCH (17:35)
[2024-03-09] MEDS: METOPROLOL TARTRATE 25 MG TAB PO SCH (20:15)
[2024-03-09] MEDS: OPTIRAY 320 125ml IV ONE (20:53)
--- NOTE | 2024-03-09 21:50 | XRay Report ---
SINGLE VIEW CHEST CLINICAL HISTORY: Tachycardia FINDINGS: An AP, portable, upright chest radiograph is compared to chest x-ray and chest CT dated 03/07. The heart is mildly enlarged. The pulmonary vasculature is not congested. There are left large r than right pleural effusions with dependent consolidation. No pneumothorax is seen. The bony thorax is grossly intact. IMPRESSION: 1. Mild cardiomegaly without renographic evidence of congestive failure. 2. Left larger than right pleural effusions with dependent consolidation. ACT 112: Negative or not required by law. Electronically signed by: Wilfrid Johnson M.D. 03/09/2024 9:48 PM
--- NOTE | 2024-03-09 23:04 | CT Scan Report ---
Exam(s): CTA CHEST IV Amt: 95 ml opti 320 EXAM: CT Angiography Chest With Intravenous Contrast CLINICAL HISTORY: Reason for exam: PE. TECHNIQUE: Axial computed tomographic angiography images of the chest with intravenous contrast. CTDI is 22.14 mGy and DLP is 687.17 mGy-cm. Automated exposure control was utilized for the study. A dose lowering technique was utilized adhering to the principles of ALARA. MIP reconstructed images were created and reviewed. COMPARISON: Chest CT 03/07/2024 FINDINGS: Pulmonary arteries: No pulmonary embolism. Aorta: No acute findings. Normal caliber. No dissection. Lungs: Compressive atelectasis in the lower lobes. Pleural space: Small bilateral pleural effusions. Heart: Heart size is normal. Trace pericardial effusion. Bones/joints: No acute fracture. Soft tissues: Unremarkable. Lymph nodes: Unremarkable. IMPRESSION: 1. No pulmonary embolism. 2. Small bilateral pleural effusions. 3. Compressive atelectasis in the lower lobes. Electronically signed by: Juan C Vance MD 03/09/24 23:03 PM
--- NOTE | 2024-03-10 06:55 | Hospitalist Progress Note ---
Date of Service March 10, 2024 Assessment & Plan (1) Sepsis: (2) Acute bilateral obstructive uropathy: (3) Rectal mass: (4) Acute blood loss anemia: (5) Acute hyponatremia: (6) Acute kidney injury: (7) Anemia: (8) Hypokalemia: Plan Sepsis -Patient with sepsis present on admission. Multiple sources likely - intra- abdominal with large rectal mass, possible translocation, recent surgery -Blood culture obtained in the ER, results showing gram negative bacilli suggesting possible GI/ source; e coli pansensitive -Patient with significant tachycardia response - sinus with no significant ectopy. No evidence of ischemia. Multifactorial - sinus tachycardia secondary to infection, dehydration, anemia, electrolyte abnormalities all contributing. - continue metoprolol 25mg BID and will continue ongoing maintenance IVF - on Cefepime/Flagyl and Daptomycin, was off daptomycin but clinically worsened so it was re-added yesterday - will do soft tissue US to look for abscess formation given pe findings as abd exam has been benign, c diff neg, no resp symptoms Acute bilateral obstructive uropathy 53yo male presenting with urinary retention secondary to acute bilateral obstructive uropathy likely from patient's large rectal mass. Fox catheter has been placed and there is clear, yellow urine in the bag. -Maintain Fox catheter -Monitor strict intake and output -Patient is to be seen in [place] later this week to discuss/plan definitive management for his rectal mass. Will investigate possibility of transfer to [facility] as patient stabilizes Anemia -Patient reports bloody rectal discharge. Hgb on arrival = 8.9. Acute drop on repeat labs to 6.9 most likely dilutional rather than acute blood loss anemia. -Received 2u PRBCs on 03/08 - hgb today 9.1 Rectal Mass -Discovered during last admission. Patient has been seen at [facility] by Colorectal surgery - has had a diverting colostomy (no records available as of yet). He is to follow with them later this week for further management planning. Pending clinical stability, consider reaching out to [facility] for further management later in admission. Patient reports he was to establish with a local oncologist to begin radiation -Request records -Ostomy management q shift Acute Hyponatremia, improved -Na 120 on arrival, 132 today Acute kidney injury, resolved -Patient with BUDDY Cr 2.74 on admission, now resolved - Likely secondary to acute obstructive uropathy as above. Possible pre-renal azotemia contributing as well - patient with poor oral intake of late, appeared dry on exam at time of admission. Home meds include Spironolactone and HCTZ as well. Schizophrenia -Continue home Venlafaxine -Continue Risperdal Diabetes, Type 2 -Lantus 7u daily -ISS -Goal blood sugar 110-180 Hypothyroidism -Continue Synthroid VTE ppx - Heparin 5000u BID Admission and Anticipated Discharge Date Admission Date: March 08, 2024 Supervising Physician Co-Signing Physician Notes ATTESTATION I also saw the patient and confirmed cornelius portions of the history and exam. I agree with the impression and plan in the medical student/resident documentation, and as summarized below. He has no complaints today. EXAM 105/71, 101, 18, 37.1, 97% room air Alert and oriented. No distress appreciated. Neck supple Heart tachycardic but regular Lungs clear thigh respirations Abdomen is soft and nontender. DATA Labs WBC 19.99 Hemoglobin 9.1 Platelet count 328 Sodium 132, potassium 3.2, BUN 3, creatinine 0.43 Magnesium 1.6 C-reactive protein 23.[address] scan chest performed 03/09/2024 shows no PE. Lower extremity Dopplers negative bilaterally. Micro Blood cultures collected 03/07/2024 show pansensitive E. 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 coli Sinus tachycardia Acute hyponatremia, improving Hypokalemia Hypomagnesemia He again looks well clinically; leukocytosis about the same, CRP slightly less. Sinus tachycardia slightly better; weight increased metoprolol yesterday. Resident exam noted fullness in the perirectal region; ultrasound pending to exclude perirectal abscess. Will continue daptomycin for time being; his CRP did seem to improve when we resumed. Resume Eliquis and monitor CBC Awaiting records from [facility], primarily to clarify 1) Reason he was on the Eliquis -treatment for VTE or merely therapeutic prophylaxis in high risk patient. 2) Was he on both metoprolol and Coreg together 3) Proposed outpatient plan for follow-up with regards to the rectal tumor Additional per resident documentation Subjective Today, pt states he is feeling well today, really no complaints. No nausea or vomiting, no chest pain, SOB, or abdominal pain. He states he also has been starting to feel a bit stronger by the day. No questions or complaints. Review of Systems Review of Systems: Per HPI. Physical Exam 2 Physical Exam: General:Alert, no acute distress, HEENT: Normocephalic, moist oral mucosa, Cardio: Regular rate and rhythm, Resp:Lungs clear to auscultation b/l, no wheezes or rhonchi, GI: Soft and nontender, nondistended, bowel sounds active, ostomy draining watery stool today, appears nonbloody at this time Skin: Warm, pink, dry, flat red irritation rash noted from rectal area up above sacrum, serosanguineous fluid noted to drain from rectum, some subcutaneous firmness noted under skin of buttock area in certain spots bilaterally that is nonpainful to palpation Results & Data Results & Data Vital Signs (Past 12 Hours) Vital Signs Temp Pulse Pulse Resp BP Pulse Ox O2 Del Method 03/10/24 03:17 36.7 C 133 H 18 113/74 97 Room Air 03/10/24 02:00 03/09/24 22:47 36.9 C 133 H 18 111/75 97 Room Air 03/09/24 19:53 36.6 C 145 H 18 135/89 97 Room Air 03/09/24 19:30 135 H 03/09/24 19:30 Room Air O2 Del Method 03/10/24 03:17 03/10/24 02:00 Room Air 03/09/24 22:47 03/09/24 19:53 03/09/24 19:30 03/09/24 19:30 Resident Activity Tracking Resident Involvement: Resident Care Provided Care Provided: Adult Hospital Medicine (7) Anemia Anemia type: unspecified type Qualified Code(s): D64.9 - Anemia, unspecified
[2024-03-10 07:31] LABS: Basophils # (auto) 0.04 K/uL (0.00-0.20); Basophils % (auto) 0.2 %; Eosinophils # (auto) 0.17 K/uL (0.00-0.50); Eosinophils % (auto) 0.9 %; Hematocrit (blood only) 28.6 % (42.0-52.0); Hemoglobin 9.1 g/dl (14.0-18.0); Immature Granulocytes % (auto) 2.5 %; Lymphocytes # (auto) 0.76 K/uL (1.20-3.40); Lymphocytes % (auto) 3.8 %; Mean Corpuscular Hemoglobin 25.1 pg (25.0-34.0); Mean Corpuscular Hgb Conc 31.8 g/dL (32.0-36.0); Mean Platelet Volume 8.6 fL (9.4-12.4); Monocytes # (auto) 0.86 K/uL (0.11-0.59); Monocytes % (auto) 4.3 %; Neutrophils # (auto) 17.66 K/uL (1.40-6.50); Neutrophils % (auto) 88.3 %; Platelet Count 328 K/uL (130-400); Red Blood Count 3.62 M/uL (4.70-6.10); White Blood Count 19.99 K/ul (4.8-10.8)
--- NOTE | 2024-03-10 07:41 | Ultrasound Report ---
LEFT LOWER EXTREMITY VENOUS DOPPLER HISTORY: Left leg swelling. r/o dvt COMPARISON STUDY: None. FINDINGS: There is normal compressibility, flow, and augmentation within the left lower extremity rhina p venous system. IMPRESSION: No DVT within the left lower extremity. ACT 112: Negative or not required by law. Electronically signed by: Gurvinder Young M.D. 03/10/2024 7:39 AM
[2024-03-10 07:47] LABS: Anion Gap 7 (3-11); Calcium 7.2 mg/dl (8.6-10.3); Carbon Dioxide 18 mmol/L (21-32); Chloride 107 mmol/L (98-107); Potassium 3.2 mmol/L (3.5-5.1); Sodium 132 mmol/L (136-145)
[2024-03-10 07:52] LABS: Blood Urea Nitrogen 3 mg/dl (6-23); C Reactive Protein 23.88 mg/dl (0-0.5); Creatinine Clr Calc Pharmacy 195.3 ml/min; Est GFR (African American) > 150.0 ml/min; Est GFR (Non-African American) 131.6 ml/min; Glucose 90 mg/dl (70-99(Fasting))
--- NOTE | 2024-03-10 11:00 | Electrocardiogram Report ---
Test Reason : Blood Pressure : */* mmHG Vent. Rate : 123 BPM Atrial Rate : 123 BPM P-R Int : 124 ms QRS Dur : 86 ms QT Int : 318 ms P-R-T Axes : 61 35 59 degrees QTcB Int : 455 ms Sinus tachycardia Possible Lateral infarct (cited on or before 07-Mar-2024) Abnormal ECG When compared with ECG of 07-Mar-2024 18:27, No significant change was found Confirmed by Micheal Serna ([id number]) on 03/10/2024 10:59:55 AM Referred By: REFERRED SELF Confirmed By: Micheal Serna
[2024-03-10] MEDS: MAGNESIUM SULFATE / D5W 1 GM/100 ML BAG IV SCH (11:10)
[2024-03-10] MEDS: POTASSIUM CHLORIDE 20 MEQ/15 ML UDC PO STA (11:10)
--- NOTE | 2024-03-10 11:15 | Ultrasound Report ---
US venous doppler LE RT HISTORY: 53 years-old Male rule out DVT acute pain and swelling of the right lower leg COMPARISON: None TECHNIQUE: Multiple real-time sonographic images of the right lower extremity deep venous structures were obtained assessing grayscale appearance, color and spectral flow. FINDINGS: Normal flow, compressibility, phasicity and augmentation. IMPRESSION: No sonographic evidence of deep venous thrombosis. ACT 112: Negative or not required by law. The above report was generated using voice recognition software. It may contain grammatical, syntax o r spelling errors. Electronically signed by: Delvis Holman M.D. 03/10/2024 11:14 AM
[2024-03-10] MEDS: POTASSIUM ACETATE/NSS 10 MEQ/105 ML BAG IV SCH (11:17)
--- NOTE | 2024-03-10 16:17 | Ultrasound Report ---
US soft tissue perineum CLINICAL HISTORY: Perirectal abscess? COMPARISON STUDY: Abdomen and pelvis CT 03/07/2024. FINDINGS: Real-time sonographic imaging of the left lower gluteal region was performed with represent ative images submitted. There is a complex subcutaneous fluid collection at this location which measu res approximately 7 cm in size. This may represent a perirectal abscess. IMPRESSION: Large complex subcutaneous fluid collection within the left lower gluteal region measuri ng approximate 7 cm in size. This is difficult to assess on this study but may represent a perirectal abscess. ACT 112: Negative or not required by law. Electronically signed by: Gurvinder Young M.D. 03/10/2024 4:16 PM
[2024-03-10 17:52] LABS: Calcium 7.5 mg/dl (8.6-10.3); Potassium 3.9 mmol/L (3.5-5.1)
[2024-03-10 17:57] LABS: BUN Creatinine Ratio 8.2 (10-20); Creatinine Clr Calc Pharmacy 171.4 ml/min; Est GFR (African American) 144.6 ml/min; Est GFR (Non-African American) 124.8 ml/min
--- NOTE | 2024-03-10 17:59 | Surgery Consultation ---
Date of Consultation March 10, 2024 Assessment & Plan (1) Rectal mass: 53-year-old in the hospital being treated for multiple medical issues. He continues to have an elevated white count. I believe that the complex collection seen on ultrasound is extension of the rectal cancer into the perianal and perirectal tissues. There does not appear to be a fluctuant area to drain. I reviewed the CT scan and ultrasound personally with the radiologist. I would not recommend any surgical intervention at this time. treated conservatively, we will continue to follow. History of Present Illness Reason for Consultation: possible perirectal abscess Requesting Physician: Cintia Marquez Attending Physician: Farrukh Womack, DO History of Present Illness 53-year-old gentleman with a large rectal mass status post diverting colostomy done at [facility] in [place] presents with weakness and sepsis. He had bilateral hydronephrosis and significant pyelonephritis. He has been on antibiotics. His white blood cell count continues to be elevated at 18. He was noted on exam to have some erythema around his anal region. An ultrasound demonstrated a 7 cm complex collection in this location. His prior CT scan demonstrates a very large rectal mass which extends down into this region. Allergies Allergy/AdvReac Type Severity Reaction Status Date / Time aspirin Allergy Mild Unknown Unverified 03/07/24 22:24 Penicillins Allergy Mild Unknown Verified 03/07/24 22:24 Home Medications Medication Instructions Recorded Confirmed Type carvedilol 12.5 mg tablet 12.5 mg PO BID 02/03/24 03/07/24 History fenofibrate nanocrystallized 48 mg 48 mg PO QAM 02/03/24 03/07/24 History tablet hydrochlorothiazide 12.5 mg tablet 12.5 mg PO QAM 02/03/24 03/07/24 History levothyroxine 50 mcg tablet 50 mcg PO DAILYBB 02/03/24 03/07/24 History metformin 500 mg tablet,extended 1,000 mg PO QAM 02/03/24 03/07/24 History release 24 hr risperidone 2 mg tablet 2 mg PO HS 02/03/24 03/07/24 History spironolactone 50 mg tablet 50 mg PO QAM 02/03/24 03/07/24 History venlafaxine 37.5 mg 37.5 mg PO DAILY PRN 02/03/24 03/07/24 History capsule,extended release 24 hr depressed/anxious (Effexor XR) venlafaxine 75 mg capsule,extended 75 mg PO QAM 02/03/24 03/07/24 History release 24 hr (Effexor XR) apixaban 5 mg tablet (Eliquis) 5 mg PO BID 03/07/24 03/07/24 History folic acid 1 mg tablet 1 mg PO QAM 03/07/24 03/07/24 History metoprolol tartrate 25 mg tablet 12.5 mg PO BID 03/07/24 03/07/24 History sennosides 8.6 mg tablet (senna) 17.2 mg PO HS PRN Constipation 03/07/24 03/07/24 History thiamine HCl (vitamin B1) 100 mg 100 mg PO DAILY 03/07/24 03/07/24 History tablet Patient History Medical History Hypothyroid Social History Smoking Status: Never smoker Do You Dip or Chew Tobacco: Yes; Hx Alcohol Use: No Hx Substance Use: No Preferred Language: Pashto Communication Ability: Effective Air Traffic Control Specialist Required: No Beliefs That Will Affect Care: None Current Living Situation: Family Other Information That Helps Us Care for You: No Feels Safe at Home: Yes Safety Concerns: Feels Safe At This Time Assistive Devices: Walker and Other Review of Systems Review of Systems: All systems reviewed & are unremarkable except as noted in HPI & below Physical Exam Constitutional: WD/WN, vitals as above Eyes: PERRL, conjunctivae normal, anicteric sclerae Neck: trachea midline, no thyromegaly Respiratory: normal respiratory effort; no respiratory distress and no labored breathing Cardiovascular: Rate/Rhythm: regular rhythm and + tachycardic Gastrointestinal (Abdomen): Inspection/Auscultation: abdomen normal to inspection; abdomen not distended Percussion/Palpation: abdomen soft; abdomen nontender Ostomy in place Inspection of the external anal tissues demonstrates a masslike lesion extending from the anal verge. There is some feculent drainage around this. There is no erythema or induration. Skin: no rashes, warm and dry Psychiatric: A+Ox3, euthymic affect Results & Data Vital Signs (Past 12 Hours) Vital Signs Temp Pulse Pulse Resp BP Pulse Ox O2 Del Method 03/10/24 15:55 36.7 C 116 H 18 126/82 97 Room Air 03/10/24 13:10 109 H 03/10/24 11:20 37.1 C 101 H 18 105/71 97 Room Air 03/10/24 08:00 119 H 03/10/24 07:20 37.0 C 121 H 18 111/72 96 Room Air Laboratory Results 03/10/24 03/10/24 03/10/24 Range/Units 16:46 15:58 11:09 WBC (4.8-10.8) K/ul RBC (4.70-6.10) M/uL Hgb (14.0-18.0) g/dl Hct (42.0-52.0) % MCV (80.0-100.0) fL MCH (25.0-34.0) pg MCHC (32.0-36.0) g/dL RDW Std Deviation (36.4-46.3) fL RDW Coeff of Dru (11.5-14.5) % Plt Count (130-400) K/uL MPV (9.4-12.4) fL Immature Gran % (Auto) % Neut % (Auto) % Lymph % (Auto) % Caswell % (Auto) % Eos % (Auto) % Baso % (Auto) % Neut # (Auto) (1.40-6.50) K/uL Lymph # (Auto) (1.20-3.40) K/uL Caswell # (Auto) (0.11-0.59) K/uL Eos # (Auto) (0.00-0.50) K/uL Baso # (Auto) (0.00-0.20) K/uL Immature Gran # (Auto) (0.01-0.20) K/uL Sodium 131 L (136-145) mmol/L Potassium 3.9 D (3.5-5.1) mmol/L Chloride 106 (98-107) mmol/L Carbon Dioxide 21 (21-32) mmol/L Anion Gap 4 (3-11) BUN 4 L (6-23) mg/dl Creatinine 0.49 L (0.6-1.4) mg/dl Est Cr Clr Drug Dosing 171.4 ml/min Est GFR ( Amer) 144.6 ml/min Est GFR (Non-Af Amer) 124.8 ml/min BUN/Creatinine Ratio 8.2 L (10-20) Glucose 148 H (70-99(Fasting)) mg/dl POC Glucose 179 H 116 H (70-99) mg/dl Lactate (0.4-2.0) mmol/L Calcium 7.5 L (8.6-10.3) mg/dl Magnesium (1.7-2.4) mg/dl C-Reactive Protein (0-0.5) mg/dl 03/10/24 03/09/24 Range/Units 07:09 20:01 WBC 19.99 H (4.8-10.8) K/ul RBC 3.62 L (4.70-6.10) M/uL Hgb 9.1 L (14.0-18.0) g/dl Hct 28.6 L (42.0-52.0) % MCV 79.0 L (80.0-100.0) fL MCH 25.1 (25.0-34.0) pg MCHC 31.8 L (32.0-36.0) g/dL RDW Std Deviation 52.0 H (36.4-46.3) fL RDW Coeff of Dru 18.0 H (11.5-14.5) % Plt Count 328 (130-400) K/uL MPV 8.6 L (9.4-12.4) fL Immature Gran % (Auto) 2.5 % Neut % (Auto) 88.3 % Lymph % (Auto) 3.8 % Caswell % (Auto) 4.3 % Eos % (Auto) 0.9 % Baso % (Auto) 0.2 % Neut # (Auto) 17.66 H (1.40-6.50) K/uL Lymph # (Auto) 0.76 L (1.20-3.40) K/uL Caswell # (Auto) 0.86 H (0.11-0.59) K/uL Eos # (Auto) 0.17 (0.00-0.50) K/uL Baso # (Auto) 0.04 (0.00-0.20) K/uL Immature Gran # (Auto) 0.50 H (0.01-0.20) K/uL Sodium 132 L (136-145) mmol/L Potassium 3.2 L (3.5-5.1) mmol/L Chloride 107 (98-107) mmol/L Carbon Dioxide 18 L (21-32) mmol/L Anion Gap 7 (3-11) BUN 3 L (6-23) mg/dl Creatinine 0.43 L (0.6-1.4) mg/dl Est Cr Clr Drug Dosing 195.3 ml/min Est GFR ( Amer) > 150.0 ml/min Est GFR (Non-Af Amer) 131.6 ml/min BUN/Creatinine Ratio 7.0 L (10-20) Glucose 90 (70-99(Fasting)) mg/dl POC Glucose 166 H (70-99) mg/dl Lactate 1.1 (0.4-2.0) mmol/L Calcium 7.2 L (8.6-10.3) mg/dl Magnesium 1.6 L (1.7-2.4) mg/dl C-Reactive Protein 23.88 H (0-0.5) mg/dl Diagnostic Findings Exam(s): CT ABDOMEN + PELVIS Without Contrast EXAM: CT Abdomen and Pelvis Without Intravenous Contrast CLINICAL HISTORY: Reason for exam: weakness. TECHNIQUE: Axial computed tomography images of the abdomen and pelvis without intravenous contrast. CTDI is 9.95 mGy and DLP is 694.48 mGy-cm. Automated exposure control was utilized for the study. A dose lowering technique was utilized adhering to the principles of ALARA. COMPARISON: No relevant prior studies available. FINDINGS: Lung bases: Atelectasis in the lower lobes. Trace pleural effusions. ABDOMEN: Liver: Unremarkable. Gallbladder and bile ducts: Cholelithiasis. No cholecystitis. Pancreas: Sequela of chronic pancreatitis. Spleen: Unremarkable. Adrenals: Unremarkable. Kidneys and ureters: Moderate obstructive changes in the left kidney and mild obstructive changes in the right kidney. Likely related to the mass. Stomach and bowel: Large rectal mass within the pelvis measuring at least 15 x 10 x 12 cm. The inferior extent of the mass is not imaged on this study. Left lower quadrant colostomy. No bowel obstruction. PELVIS: Appendix: No findings to suggest acute appendicitis. Bladder: Unremarkable. Reproductive: Unremarkable as visualized. ABDOMEN and PELVIS: Intraperitoneal space: Unremarkable. No free air. No significant fluid collection. Bones/joints: No acute fracture. Soft tissues: Unremarkable. Vasculature: Unremarkable. Lymph nodes: Unremarkable. IMPRESSION: 1. Large rectal mass within the pelvis measuring at least 15 x 10 x 12 cm. The inferior extent of the mass is not imaged on this study. 2. Moderate obstructive changes in the left kidney and mild obstructive changes in the right kidney. Likely related to the mass. US soft tissue perineum CLINICAL HISTORY: Perirectal abscess? COMPARISON STUDY: Abdomen and pelvis CT 03/07/2024. FINDINGS: Real-time sonographic imaging of the left lower gluteal region was performed with quality assurance representative images submitted. There is a complex subcutaneous fluid collection at this location which measures approximately 7 cm in size. This may represent a perirectal abscess. IMPRESSION: Large complex subcutaneous fluid collection within the left lower gluteal region measuring approximate 7 cm in size. This is difficult to assess on this study but may represent a perirectal abscess.
[2024-03-10] MEDS: APIXABAN 5 MG TABLET PO SCH (20:42)
[2024-03-10] MEDS: ACETAMINOPHEN 325 MG TAB PO PRN (20:48)
--- NOTE | 2024-03-11 06:53 | Hospitalist Progress Note ---
Date of Service March 11, 2024 Assessment & Plan (1) Sepsis: (2) Acute bilateral obstructive uropathy: (3) Rectal mass: (4) Hypokalemia: (5) Anemia: (6) Acute hyponatremia: Plan: - (7) Acute kidney injury: Plan: -Continue to monitor BUN and Creatinine. As of this morning, Creatinine = 0.40 and BUN = 3 -Maintenance IV and PO Fluids Plan Sepsis: -Patient with sepsis present on admission. Multiple sources likely - intra- abdominal with large rectal mass, possible perianal abcess, possible translocation, recent surgery -Blood culture obtained in the ER, final results show aerobic and anaerobic E Coli. On admission, blood was negative for MRSA as well. C Diff was also negative. -Initially received Cefepime/Flagyl and Daptomycin, which was then de-escalated to Ceftriaxone alone with Flagyl per culture results. Patient declined on this regimen so Daptoycin was re-added to regimen. -Lactate levels decreased to 1.1 measured 03/10/2024 -CRP with a decreasing trend with value at 17.69 as of 03/11/2024 AM -Patient with significant tachycardia response whilst admitted - sinus with no significant ectopy. Multifactorial - sinus tachycardia secondary to infection, dehydration, anemia, electrolyte abnormalities all contributing. Restarted home metoprolol 12.5 mg and was increased to 25mg BID on 03/09/2024 and will continue ongoing maintenance IVF. Telemetry reported sinus tachycardia from the 120-130s as of 03/10/2024 PM. As of 03/11/2024 patient shows decreased heart rate down in the 110s. -Perianal access, surgery consulted for drainage: noted that they will continue to follow, but as per note ultrasound may reveal an extension of the rectal cancer into the perianal and perirectal tissues. There does not appear to be a fluctuant area to drain. Did not recommend any surgical intervention at this time. treated conservatively, we will continue to follow. -Labs trending in correct direction, continue antibiotic regimen -[facility] -Prepare for transfer of care and surgery for potential perirectal abscess drainage in the setting of rectal cancer and mass. Acute Bilateral Obstructive Uropathy: -Most likely secondary to large rectal mass -Fox catheter has been placed and there is clear, yellow urine in the bag. Was emptied last night with 850mL of urine. -Maintain Fox catheter -Monitor strict intake and output -Patient hopes to be seen this week in [place] to discuss/plan definitive management for his rectal mass. Will investigate possibility of transfer to [facility] as patient stabilizes once acute problems resolve. Rectal Mass: -Rectal mass was discovered during last admission to the [facility] ED via CT scan. Patient has been seen at [facility] by Colorectal surgery - has had a diverting colostomy (no records available as of yet). - He was to follow later this week for further management planning. - Pending clinical stability, consider reaching out to [facility] for further management later in admission. Patient reports he was to establish with a local oncologist to begin radiation, but acute conditions need to stabilize before assessing possibilities. -Request records to assess for oncology consult as well as the feasibility of transferring patient back to [place] for care in regards to rectal mass, radiation, and chemotherapy. Hypokalemia: -Patient's electrolytes revealed hypokalemia and hypomagnesia. Both magnesium and potassium to be given to patient. Check BMP to assess electrolyte levels. -Potassium levels are at 3.9 and Magnesium levels are as of 03/11/2024. -Continue IV fluids and monitor. Check BMP Anemia: -Patient reports bloody rectal discharge. Hgb on arrival = 8.9. Acute drop on repeat labs to 6.9 most likely dilutional rather than acute blood loss anemia. -Received 2u PRBCs on 03/08 - Hgb 03/11/2024 = 9.1 -Continue to monitor Acute Hyponatremia: Na 120 on arrival to the emergency department. -Na 135 as of 03/11/2024 -Chloride increased from 106 to 109 on 03/11/2024. Monitor for hyperchloremic acidosis -Fluids are being given as maintenance. Continue to monitor. Check BMP. Schizophrenia -Continue home Venlafaxine -Continue Risperdal Diabetes, Type 2 -Lantus 7u daily -ISS -Goal blood sugar 110-180 Hypothyroidism -Continue Synthroid Patient on Eliquis Admission and Anticipated Discharge Date Admission Date: March 08, 2024 Kayce Denney is a pleasant 53-year-old male with a history of rectal cancer with colostomy bag placement four weeks ago. He presented to the ED on 03/07/2024 evening with weakness and trouble urinating and blood noted in the rectum. He reported reduced fluid intake and difficulty urinating for 5 or 6 days before presenting to the ED as requested by his doctor in [place]. He was found to have sepsis on admission, along with obstructive uropathy due to the rectal mass, subsequent BUDDY, and electrolyte imbalance. The patient was previously hospitalized (02/02-02/04/24) here and a CT scan during that admission revealed a large rectal mass. He was treated for septic shock and transferred to [facility], where he reports having a diverting colostomy placed. Patient is currently being treated for sepsis via broad spectrum antibiotics. The patient reports doing well today and had no complaints overnight. He was able to sleep through the night and has been eating three meals a day. He has also been trying to keep himself hydrated with fluids. Feels stronger with each day. Today patient denies chills, sweats, palpitations, sweats, stomach or GI pain, dizziness, nausea, vomiting, chest pain, changes in skin at the site of the ostomy bag, or swelling in his extremities. Overall feeling well and much better, has no acute concerns or questions at this time. Review of Systems Review of Systems: Per HPI. Physical Exam Physical Exam: General:Alert and oriented, no acute distress. HEENT: Normocephalic, moist oral mucosa, Cardio: Tachycardic rate, normal rhythm, S1 and S2 heard. No rubs, murmurs, or gallops. Resp:Lungs clear to auscultation b/l, no wheezes or rhonchi. GI: Abdomen is soft and nontender, nondistended, ostomy draining more solid stools today, appears nonbloody at this time. Small amount of watery stool also present in the bag. Skin: Warm, pink, dry. No rashes noted. Bruise on left forearm from venipuncture. Vital Signs: Vital Signs - 24 hr 03/10/24 08:00 03/10/24 08:00 03/10/24 11:20 Temperature 37.1 C Temperature Source Oral Pulse Rate 119 H Pulse Rate [Apical ] 101 H Respiratory Rate 18 Blood Pressure [Le ft Arm] 105/71 Blood Pressure Muna n [Left Arm] 82 Blood Pressure Pos ition [Left Arm] Lying Pulse Oximetry 97 Oxygen Delivery Me thod Room Air Oxygen Delivery Me thod [Left Index F juan luis] EWS Level of Consc iousness - Last Re sult Spontaneously Aler t EWS Temperature - Last Result 37.1 EWS Respiratory Ra te - Last Result 18 EWS Oxygen Saturat ion - Last Result 97 EWS Oxygen in Use - Last Result No EWS Lactate - Last Result 1.1 EWS Score 2 EWS Clinical Risk Low Risk 03/10/24 11:21 03/10/24 13:10 03/10/24 15:55 Temperature 36.7 C Temperature Source Oral Pulse Rate 109 H Pulse Rate [Apical ] 116 H Respiratory Rate 18 Blood Pressure [Le ft Arm] 126/82 Blood Pressure Muna n [Left Arm] 96 Blood Pressure Pos ition [Left Arm] Lying Pulse Oximetry 97 Oxygen Delivery Me thod Room Air Oxygen Delivery Me thod [Left Index F juan luis] EWS Level of Consc iousness - Last Re sult Spontaneously Aler t EWS Temperature - Last Result 37.1 EWS Respiratory Ra te - Last Result 18 EWS Oxygen Saturat ion - Last Result 97 EWS Oxygen in Use - Last Result No EWS Lactate - Last Result 1.1 EWS Score 1 EWS Clinical Risk Low Risk 03/10/24 15:59 03/10/24 20:51 03/10/24 20:51 Temperature 37.8 C H Temperature Source Oral Pulse Rate Pulse Rate [Apical ] 129 H Respiratory Rate 18 Blood Pressure [Le ft Arm] 112/60 Blood Pressure Muna n [Left Arm] 77 Blood Pressure Pos ition [Left Arm] Semi-fowlers Pulse Oximetry 97 Oxygen Delivery Me thod Room Air Oxygen Delivery Me thod [Left Index F juan luis] EWS Level of Consc iousness - Last Re sult Spontaneously Aler t Spontaneously Aler t EWS Temperature - Last Result 36.7 36.7 EWS Respiratory Ra te - Last Result 18 18 EWS Oxygen Saturat ion - Last Result 97 97 EWS Oxygen in Use - Last Result No No EWS Lactate - Last Result 1.1 1.1 EWS Score 2 2 EWS Clinical Risk Low Risk Low Risk 03/10/24 22:19 03/10/24 22:46 03/10/24 22:46 Temperature 36.9 C Temperature Source Oral Pulse Rate Pulse Rate [Apical ] 108 H Respiratory Rate 18 Blood Pressure [Le ft Arm] 100/64 Blood Pressure Muna n [Left Arm] 76 Blood Pressure Pos ition [Left Arm] Semi-fowlers Pulse Oximetry 96 Oxygen Delivery Me thod Room Air Room Air Oxygen Delivery Me thod [Left Index F juan luis] EWS Level of Consc iousness - Last Re sult Spontaneously Aler t EWS Temperature - Last Result 37.8 EWS Respiratory Ra te - Last Result 18 EWS Oxygen Saturat ion - Last Result 97 EWS Oxygen in Use - Last Result No EWS Lactate - Last Result 1.1 EWS Score 2 EWS Clinical Risk Low Risk 03/10/24 22:59 03/11/24 02:00 03/11/24 03:03 Temperature 37.2 C Temperature Source Oral Pulse Rate 103 H Pulse Rate [Apical ] 106 H Respiratory Rate 18 Blood Pressure [Le ft Arm] Blood Pressure Muna n [Left Arm] Blood Pressure Pos ition [Left Arm] Semi-fowlers Pulse Oximetry 97 Oxygen Delivery Me thod Room Air Oxygen Delivery Me thod [Left Index F juan luis] Room Air EWS Level of Consc iousness - Last Re sult EWS Temperature - Last Result EWS Respiratory Ra te - Last Result EWS Oxygen Saturat ion - Last Result EWS Oxygen in Use - Last Result EWS Lactate - Last Result EWS Score EWS Clinical Risk 03/11/24 03:03 03/11/24 07:20 03/11/24 07:20 Temperature 36.7 C Temperature Source Oral Pulse Rate Pulse Rate [Apical ] Respiratory Rate 18 Blood Pressure [Le ft Arm] 111/71 Blood Pressure Muna n [Left Arm] 84 Blood Pressure Pos ition [Left Arm] Lying Pulse Oximetry 99 Oxygen Delivery Me thod Room Air Oxygen Delivery Me thod [Left Index F juan luis] EWS Level of Consc iousness - Last Re sult Spontaneously Aler t Spontaneously Aler t EWS Temperature - Last Result 36.9 36.7 EWS Respiratory Ra te - Last Result 18 18 EWS Oxygen Saturat ion - Last Result 96 99 EWS Oxygen in Use - Last Result No No EWS Lactate - Last Result 1.1 1.1 EWS Score 3 1 EWS Clinical Risk Moderate Risk Low Risk Physical Exam: See above. Results & Data Results & Data Vital Signs (Past 12 Hours) Vital Signs Temp Pulse Pulse Resp BP Pulse Ox O2 Del Method 03/11/24 03:03 37.2 C 106 H 18 97 Room Air 03/11/24 02:00 03/10/24 22:59 103 H 03/10/24 22:46 36.9 C 108 H 18 100/64 96 Room Air 03/10/24 22:19 Room Air 03/10/24 20:51 37.8 C H 129 H 18 112/60 97 Room Air O2 Del Method 03/11/24 03:03 03/11/24 02:00 Room Air 03/10/24 22:59 03/10/24 22:46 03/10/24 22:19 03/10/24 20:51 Laboratory Results WBC 19.99 to 17.31 Hemoglobin 9.1 Sodium 131 to 135 Potassium 3.9 to 3.6 BUN 3, creatinine 0.40 Magnesium 1.8 Cl increased from 106 to 109 C-reactive protein 23.88 to 17.69 Diagnostic Findings Lower extremity Venous Doppler: -No Findings of DVT, bilaterally Soft Tissue Perineum US: -Impression: Large complex subcutaneous fluid collection within the left lower gluteal region measuring approximate 7 cm in size. This is difficult to assess on this study but may represent a perirectal abscess, Surgery consulted Medications Administered - Daptomycin, Ceftriazxone and Metronidazole IV for sepsis - Metoprolol Dose increased to 25 mg BID on 03/09/2024 from his home dose of 12.5 mg BID - IV Magneisum and Potassium for electrolyte disturbance - Eliquis 5mg restarted 03/10/2024 - Continued IV Fluids (NSS) Resident Activity Tracking Resident Involvement: Resident Care Provided Care Provided: Adult Hospital Medicine Resident Supervision Co-Signing Physician Notes I have seen this patient along with student doctor Zaheer and agree with the above findings with any clarifications noted below; Spoke to sister Jeannie this afternoon, who states maybe it may be best to try to transfer him back to [facility] given his complexity with her rectal cancer with perirectal abscess for further eval there. Pt also in agreement with this. Will call [facility] this evening for possible transfer. At bedside nursing staff noted continuation of serosanguineous rectal secretions which now includes some puss coming from the rectum. Pt totally asymptomatic and states he feels fine. Tachycardia has improved today, now 100s. Continue antibiotics. Dr. Garcia, PGY2 I personally examined the patient and verified cornelius points of history and exam, discussed case, and agree with decision making and plan documented by Babak PEOPLES and Dr. Garcia. Medical team working on transfer of patient back to [facility]. Unfortunately, records from last hospitalization have not been obtained from [facility] at this point, records consent signed by patient today during examination. Per nursing, patient having serosanguineous discharge with possible pus per rectum. Patient will benefit from multidisciplinary team for further management of evelyn rectal abscess as well as plans for radiation and chemotherapy to treat his large rectal mass. Patient agrees with this plan. (1) Sepsis Severe sepsis shock status: unspecified (5) Anemia Anemia type: unspecified type Qualified Code(s): D64.9 - Anemia, unspecified
[2024-03-11 07:12] LABS: Basophils # (auto) 0.03 K/uL (0.00-0.20); Basophils % (auto) 0.2 %; Eosinophils # (auto) 0.18 K/uL (0.00-0.50); Hematocrit (blood only) 29.3 % (42.0-52.0); Hemoglobin 9.1 g/dl (14.0-18.0); Immature Granulocytes # (auto) 0.57 K/uL (0.01-0.20); Immature Granulocytes % (auto) 3.3 %; Lymphocytes # (auto) 0.77 K/uL (1.20-3.40); Lymphocytes % (auto) 4.4 %; Mean Corpuscular Hemoglobin 25.3 pg (25.0-34.0); Mean Corpuscular Hgb Conc 31.1 g/dL (32.0-36.0); Mean Corpuscular Volume 81.6 fL (80.0-100.0); Mean Platelet Volume 8.4 fL (9.4-12.4); Monocytes # (auto) 0.71 K/uL (0.11-0.59); Monocytes % (auto) 4.1 %; Neutrophils # (auto) 15.05 K/uL (1.40-6.50); Platelet Count 313 K/uL (130-400); RDW Coefficient of Variation 18.2 % (11.5-14.5); RDW Standard Deviation 54.8 fL (36.4-46.3); Red Blood Count 3.59 M/uL (4.70-6.10); White Blood Count 17.31 K/ul (4.8-10.8)
[2024-03-11 07:17] LABS: Anion Gap 5 (3-11); BUN Creatinine Ratio 7.5 (10-20); Blood Urea Nitrogen 3 mg/dl (6-23); C Reactive Protein 17.69 mg/dl (0-0.5); Carbon Dioxide 21 mmol/L (21-32); Chloride 109 mmol/L (98-107); Creatinine Clr Calc Pharmacy 208.4 ml/min; Est GFR (African American) > 150.0 ml/min; Est GFR (Non-African American) 135.6 ml/min; Glucose 104 mg/dl (70-99(Fasting)); Magnesium 1.8 mg/dl (1.7-2.4); Potassium 3.6 mmol/L (3.5-5.1); Sodium 135 mmol/L (136-145)
--- NOTE | 2024-03-11 09:55 | Surgery Progress Note ---
Date of Service March 11, 2024 Assessment & Plan (1) Rectal mass: Plan: 53-year-old in the hospital being treated for multiple medical issues. He continues to have an elevated white count. I believe that the complex collection seen on ultrasound is extension of the rectal cancer into the perianal and perirectal tissues. There does not appear to be a fluctuant area to drain. I reviewed the CT scan and ultrasound personally with the radiologist. I would not recommend any surgical intervention at this time. treated conservatively, we will continue to follow. 03/11/2024: avss leukocytosis improving no rectal/buttock pain no fevers Plan: No plan for surgical drainage given concern for extension of rectal cancer into the perianal and perirectal tissues continue current medical management Possible transfer to [facility] for further management, chemo/radiation Our services signing of, call with questions/concerns. Dr. Webber has seen and examined patient, agrees with above. Admission and Anticipated Discharge Date Admission Date: March 08, 2024 Subjective no buttock pain no fevers or chills Physical Exam Constitutional: WD/WN, vitals as above cooperative and comfortable; no acute distress and not ill appearing Respiratory: normal respiratory effort; no respiratory distress, no labored breathing and no retractions Skin: no rashes, warm and dry Psychiatric: A+Ox3, euthymic affect Results & Data Vital Signs (Past 12 Hours) Vital Signs Temp Pulse Pulse Resp BP Pulse Ox O2 Del Method 03/11/24 07:20 36.7 C 18 111/71 99 Room Air 03/11/24 03:03 37.2 C 106 H 18 97 Room Air 03/11/24 02:00 03/10/24 22:59 103 H 03/10/24 22:46 36.9 C 108 H 18 100/64 96 Room Air 03/10/24 22:19 Room Air O2 Del Method 03/11/24 07:20 03/11/24 03:03 03/11/24 02:00 Room Air 03/10/24 22:59 03/10/24 22:46 03/10/24 22:19 Laboratory Results 03/11/24 03/11/24 03/10/24 Range/Units 07:19 06:24 20:04 WBC 17.31 H (4.8-10.8) K/ul RBC 3.59 L (4.70-6.10) M/uL Hgb 9.1 L (14.0-18.0) g/dl Hct 29.3 L (42.0-52.0) % MCV 81.6 (80.0-100.0) fL MCH 25.3 (25.0-34.0) pg MCHC 31.1 L (32.0-36.0) g/dL RDW Std Deviation 54.8 H (36.4-46.3) fL RDW Coeff of Dru 18.2 H (11.5-14.5) % Plt Count 313 (130-400) K/uL MPV 8.4 L (9.4-12.4) fL Immature Gran % (Auto) 3.3 % Neut % (Auto) 87.0 % Lymph % (Auto) 4.4 % Searcy % (Auto) 4.1 % Eos % (Auto) 1.0 % Baso % (Auto) 0.2 % Neut # (Auto) 15.05 H (1.40-6.50) K/uL Lymph # (Auto) 0.77 L (1.20-3.40) K/uL Searcy # (Auto) 0.71 H (0.11-0.59) K/uL Eos # (Auto) 0.18 (0.00-0.50) K/uL Baso # (Auto) 0.03 (0.00-0.20) K/uL Immature Gran # (Auto) 0.57 H (0.01-0.20) K/uL Sodium 135 L (136-145) mmol/L Potassium 3.6 (3.5-5.1) mmol/L Chloride 109 H (98-107) mmol/L Carbon Dioxide 21 (21-32) mmol/L Anion Gap 5 (3-11) BUN 3 L (6-23) mg/dl Creatinine 0.40 L (0.6-1.4) mg/dl Est Cr Clr Drug Dosing 208.4 ml/min Est GFR ( Amer) > 150.0 ml/min Est GFR (Non-Af Amer) 135.6 ml/min BUN/Creatinine Ratio 7.5 L (10-20) Glucose 104 H (70-99(Fasting)) mg/dl POC Glucose 99 131 H (70-99) mg/dl Calcium 7.0 L (8.6-10.3) mg/dl Magnesium 1.8 (1.7-2.4) mg/dl C-Reactive Protein 17.69 H (0-0.5) mg/dl 03/10/24 03/10/24 03/10/24 Range/Units 16:46 15:58 11:09 WBC (4.8-10.8) K/ul RBC (4.70-6.10) M/uL Hgb (14.0-18.0) g/dl Hct (42.0-52.0) % MCV (80.0-100.0) fL MCH (25.0-34.0) pg MCHC (32.0-36.0) g/dL RDW Std Deviation (36.4-46.3) fL RDW Coeff of Dru (11.5-14.5) % Plt Count (130-400) K/uL MPV (9.4-12.4) fL Immature Gran % (Auto) % Neut % (Auto) % Lymph % (Auto) % Searcy % (Auto) % Eos % (Auto) % Baso % (Auto) % Neut # (Auto) (1.40-6.50) K/uL Lymph # (Auto) (1.20-3.40) K/uL Searcy # (Auto) (0.11-0.59) K/uL Eos # (Auto) (0.00-0.50) K/uL Baso # (Auto) (0.00-0.20) K/uL Immature Gran # (Auto) (0.01-0.20) K/uL Sodium 131 L (136-145) mmol/L Potassium 3.9 D (3.5-5.1) mmol/L Chloride 106 (98-107) mmol/L Carbon Dioxide 21 (21-32) mmol/L Anion Gap 4 (3-11) BUN 4 L (6-23) mg/dl Creatinine 0.49 L (0.6-1.4) mg/dl Est Cr Clr Drug Dosing 171.4 ml/min Est GFR ( Amer) 144.6 ml/min Est GFR (Non-Af Amer) 124.8 ml/min BUN/Creatinine Ratio 8.2 L (10-20) Glucose 148 H (70-99(Fasting)) mg/dl POC Glucose 179 H 116 H (70-99) mg/dl Calcium 7.5 L (8.6-10.3) mg/dl Magnesium (1.7-2.4) mg/dl C-Reactive Protein (0-0.5) mg/dl 03/10/24 Range/Units 07:09 WBC (4.8-10.8) K/ul RBC (4.70-6.10) M/uL Hgb (14.0-18.0) g/dl Hct (42.0-52.0) % MCV (80.0-100.0) fL MCH (25.0-34.0) pg MCHC (32.0-36.0) g/dL RDW Std Deviation (36.4-46.3) fL RDW Coeff of Dru (11.5-14.5) % Plt Count (130-400) K/uL MPV (9.4-12.4) fL Immature Gran % (Auto) % Neut % (Auto) % Lymph % (Auto) % Searcy % (Auto) % Eos % (Auto) % Baso % (Auto) % Neut # (Auto) (1.40-6.50) K/uL Lymph # (Auto) (1.20-3.40) K/uL Searcy # (Auto) (0.11-0.59) K/uL Eos # (Auto) (0.00-0.50) K/uL Baso # (Auto) (0.00-0.20) K/uL Immature Gran # (Auto) (0.01-0.20) K/uL Sodium (136-145) mmol/L Potassium (3.5-5.1) mmol/L Chloride (98-107) mmol/L Carbon Dioxide (21-32) mmol/L Anion Gap (3-11) BUN (6-23) mg/dl Creatinine (0.6-1.4) mg/dl Est Cr Clr Drug Dosing ml/min Est GFR ( Amer) ml/min Est GFR (Non-Af Amer) ml/min BUN/Creatinine Ratio (10-20) Glucose (70-99(Fasting)) mg/dl POC Glucose (70-99) mg/dl Calcium (8.6-10.3) mg/dl Magnesium 1.6 L (1.7-2.4) mg/dl C-Reactive Protein (0-0.5) mg/dl
[2024-03-12 06:31] LABS: Basophils # (auto) 0.03 K/uL (0.00-0.20); Basophils % (auto) 0.2 %; Eosinophils # (auto) 0.13 K/uL (0.00-0.50); Eosinophils % (auto) 0.7 %; Hemoglobin 8.8 g/dl (14.0-18.0); Immature Granulocytes # (auto) 0.76 K/uL (0.01-0.20); Immature Granulocytes % (auto) 3.9 %; Lymphocytes # (auto) 0.94 K/uL (1.20-3.40); Lymphocytes % (auto) 4.8 %; Mean Corpuscular Hgb Conc 32.6 g/dL (32.0-36.0); Mean Corpuscular Volume 79.6 fL (80.0-100.0); Mean Platelet Volume 8.4 fL (9.4-12.4); Monocytes # (auto) 0.98 K/uL (0.11-0.59); Neutrophils # (auto) 16.64 K/uL (1.40-6.50); Neutrophils % (auto) 85.4 %; Platelet Count 330 K/uL (130-400); RDW Coefficient of Variation 18.1 % (11.5-14.5); RDW Standard Deviation 52.9 fL (36.4-46.3); Red Blood Count 3.39 M/uL (4.70-6.10); White Blood Count 19.48 K/ul (4.8-10.8)
--- NOTE | 2024-03-12 08:01 | Hospitalist Progress Note ---
Date of Service March 12, 2024 Assessment & Plan (1) Sepsis: (2) Acute bilateral obstructive uropathy: (3) Rectal mass: (4) Hypokalemia: (5) Anemia: (6) Acute hyponatremia: (7) Acute kidney injury: Plan Pt is a 53 yo male with pertinent hx of recent dx of rectal cancer with recent diverting ostomy who presented with sepsis, found to have a perirectal abscess. Pending transfer to [facility]. Sepsis Perirectal abscess in the setting of rectal cancer and recent diverting ostomy - pt with sepsis present on admission, blood culture showed e coli, c diff negative - had recent surg of diverting ostomy at [facility], we were unable to obtain records despite multiple attempts - CRP initially elevated up to 32, now 14 today 03/12 - antibiotics have been Ceftriaxone + flagyl + daptomycin since 03/08, daptomycin was cut out and pt's clinical status worsened with this stopped so it was readded - noted yesterday and today to have more copious rectal serosanguineous fluid and blood drainage with occasional pus from rectum Acute Bilateral Obstructive Uropathy -Most likely secondary to large rectal mass - had Cr 2.74 on admission, normalized next day with william in place - Patient hoped to be seen this week in [place] to discuss/plan definitive management for his rectal mass. Rectal Mass -Rectal mass was discovered during last admission to the [facility] ED via CT scan. Patient has been seen at [facility] by Colorectal surgery - has had a diverting colostomy - He was to follow with them later this week for further management planning. - to be transferred back to [facility] Anemia - Patient reports bloody rectal discharge. Hgb on arrival = 8.9. Acute drop on repeat labs to 6.9 most likely dilutional rather than acute blood loss anemia. - Received 2u PRBCs on 03/08 - Hgb today 8.8 Acute Hyponatremia: Na 120 on arrival to the emergency department. -Na 135 as of 03/11/2024 -Chloride increased from 106 to 109 on 03/11/2024. Monitor for hyperchloremic acidosis -Fluids are being given as maintenance. Continue to monitor. Check BMP. Schizophrenia -Continue home Venlafaxine -Continue Risperdal Diabetes, Type 2 -Lantus 7u daily -ISS -Goal blood sugar 110-180 Hypothyroidism -Continue Synthroid Patient on Eliquis Admission and Anticipated Discharge Date Admission Date: March 08, 2024 Supervising Physician Co-Signing Physician Notes I personally examined the patient and verified cornelius points of history and exam, discussed case, and agree with decision making and plan documented by Dr. Garcia. Patient accepted for transfer back to [facility], awaiting transport. Records still not available from past hospitalization where patient had colectomy. Patient is having bright red blood per rectum, concerned that friable infiltrating mass is bleeding, he remains on Eliquis for undetermined reason, hemoglobin 8.8 this morning, will hold Eliquis and recheck hemoglobin. Still concern for perirectal abscess as well and need for surgical intervention. Patient remains on daptomycin, ceftriaxone, and metronidazole IV. Patient d enies discomfort or pain, he is agreeable to transfer, continue to await transport. Subjective Today, pt seen at bedside, states he is feeling fine today. No pain anywhere. No chest pain, SOB, nausea, vomiting, abdominal pain, or rectal pain. Still pending transport to [facility]. No questions or complaints at this point in time. Review of Systems Review of Systems: Per HPI. Physical Exam Physical Exam: General:Alert, no acute distress, HEENT: Normocephalic, moist oral mucosa, Cardio: Regular rate and rhythm, Resp:Lungs clear to auscultation b/l, no wheezes or rhonchi, GI: Soft and nontender, nondistended, bowel sounds active Skin: Warm, pink, dry, Results & Data Results & Data Vital Signs (Past 12 Hours) Vital Signs Temp Pulse Pulse Resp BP Pulse Ox O2 Del Method 03/12/24 04:00 36.4 C L 115 H 20 111/71 96 Room Air 03/11/24 23:44 36.8 C 118 H 18 103/67 96 Room Air 03/11/24 23:03 115 H 03/11/24 21:03 124 H 114/72 Resident Activity Tracking Resident Involvement: Resident Care Provided Care Provided: Adult Hospital Medicine (1) Sepsis Severe sepsis shock status: unspecified (5) Anemia Anemia type: unspecified type Qualified Code(s): D64.9 - Anemia, unspecified
[2024-03-13 08:10] LABS: Basophils # (auto) 0.04 K/uL (0.00-0.20); Basophils % (auto) 0.2 %; Eosinophils # (auto) 0.16 K/uL (0.00-0.50); Eosinophils % (auto) 0.9 %; Hematocrit (blood only) 27.3 % (42.0-52.0); Hemoglobin 8.8 g/dl (14.0-18.0); Immature Granulocytes # (auto) 0.79 K/uL (0.01-0.20); Immature Granulocytes % (auto) 4.4 %; Lymphocytes # (auto) 0.86 K/uL (1.20-3.40); Lymphocytes % (auto) 4.8 %; Mean Corpuscular Hemoglobin 25.4 pg (25.0-34.0); Mean Corpuscular Hgb Conc 32.2 g/dL (32.0-36.0); Mean Corpuscular Volume 78.9 fL (80.0-100.0); Mean Platelet Volume 8.2 fL (9.4-12.4); Monocytes # (auto) 0.95 K/uL (0.11-0.59); Monocytes % (auto) 5.3 %; Neutrophils # (auto) 15.12 K/uL (1.40-6.50); Neutrophils % (auto) 84.4 %; Platelet Count 309 K/uL (130-400); RDW Coefficient of Variation 18.1 % (11.5-14.5); RDW Standard Deviation 52.1 fL (36.4-46.3); Red Blood Count 3.46 M/uL (4.70-6.10); White Blood Count 17.92 K/ul (4.8-10.8)
[2024-03-13 09:18] LABS: Anion Gap 5 (3-11); BUN Creatinine Ratio 5.4 (10-20); Blood Urea Nitrogen 2 mg/dl (6-23); C Reactive Protein 13.52 mg/dl (0-0.5); Calcium 7.1 mg/dl (8.6-10.3); Carbon Dioxide 23 mmol/L (21-32); Chloride 107 mmol/L (98-107); Creatinine Clr Calc Pharmacy 230.9 ml/min; Est GFR (African American) > 150.0 ml/min; Glucose 103 mg/dl (70-99(Fasting)); Magnesium 1.3 mg/dl (1.7-2.4); Potassium 3.1 mmol/L (3.5-5.1); Sodium 135 mmol/L (136-145)
[2024-03-13] MEDS ORDERED: SODIUM CHLORIDE 0.9% 250 ML IV PRN ×2 (09:55→10:45)
[2024-03-13] MEDS ORDERED: LORazepam 2 MG/1 ML VIAL IV STA (10:30)
[2024-03-13] MEDS ORDERED: PROTHROMBIN COMP CONC- KCENTRA 2,000 UNITS in SYRINGE 0 ML IV STA (10:47)
[2024-03-13] MEDS ORDERED: STAT IV/IM STA (10:47)
--- NOTE | 2024-03-13 13:30 | Discharge Summary ---
Date of Service March 13, 2024 Admission HPI Per Admitting Provider Brian Denney is a pleasant 53yo male with history of schizophrenia, HTN presenting with difficulty urinating. Patient was recently admitted to [facility] from 02/02 - 02/04/24 after presenting with significant unintentional weight loss of 40# over the last 6 months. He was septic and hypotensive on arrival. 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 Patient was managed in the MICU for septic shock with antibiotics, fluid, 4u PRBCs and intermittent use of pressors. Blood cultures from 02/03/24 POSITIVE for agustin- sensitive E-coli. He was ultimately transferred to [facility] for evaluation by colorectal surgery. No paperwork as of yet from [facility] admission - per patient, he had a diverting colostomy placed. He is scheduled to followup in [place] later this week for management of his rectal mass. Patient presents today with difficulty urinating x 1 day. Also with poor oral intake of late. He reports rectal output that his occasionally bloody. Otherwise, patient denies chest pain, cough, SOB, abdominal pain, nausea, vomiting, diarrhea. Patient had a CT of the abdomen in the ER which revealed urinary retention with significant left greater than right obstructive uropathy. A William catheter was placed with 2L UOP. ER Course: NSS x 4L Cefepime 1gm Flagyl 500mg IV Calcium gluconate 2gm IV LR at 125mL/hr Albumin 5% x 250mL Daptomycin 425mg 2u PRBCs ordered for Hgb drop to 6.9 LR requested to be stopped Admission Exam Per Admitting Provider General: patient ill in appearance, somnolent but arousable, slow to answer questions, oriented to self only Skin: sacral ulcer present, no rash HEENT: NC/AT, PERRL, EOMI, anicteric sclera, conjunctiva without injection, external ear normal to inspection and nontender, nares patent, dry mucus membranes, dentition intact, no oropharyngeal lesions, neck supple, trachea midline, no LAD, no thyromegaly, no JVD Heart: +S1/S2, regular, tachycardic, no m/r/g Lungs: equal air entry bilaterally, no rales/rhonchi/wheezes Abd: +BS diminished, soft, NT, colostomy in place Ext: warm, 2+ pulses in UE/LE bilaterally, no clubbing/cyanosis or edema Neuro: nonfocal, patient somnolent, arousable, oriented x 1 Patient re-evaluated at 04:00 - still with tachycardia, HR 150's. Mental state has significantly improved. Patient brighter, more attentive and able to answer questions. Reports that he feels improved Principal Diagnosis Rectal cancer, perirectal abscess, rectal bleed Discharge Exam General:Alert, no acute distress but ill appearing HEENT: Normocephalic, Cardio: Tachycardic but regular rhythm Resp:Lungs clear to auscultation b/l, no wheezes or rhonchi, Skin: Pale but warm Discharge Data Allergies Allergy/AdvReac Type Severity Reaction Status Date / Time aspirin Allergy Mild Unknown Unverified 03/07/24 22:24 Penicillins Allergy Mild Unknown Verified 03/07/24 22:24 Consultations 03/10/24 16:38 Consult General Surgery Routine 03/11/24 19:58 Burn CD for patient Stat Ordered Studies 03/07/24 18:45 CT abd pelvis wo con Stat CT chest diagnostic wo con Stat 03/09/24 18:52 CT for pulmonary embolism PE [CT angio chest PE protocol] Stat 03/10/24 02:35 US venous duplex leg [US venous doppler LE LT] Urgent 03/10/24 09:51 US venous duplex leg [US venous doppler LE RT] Stat 03/10/24 10:41 US soft tissue perineum Routine Hospital Course (1) Sepsis: (2) Acute bilateral obstructive uropathy: (3) Rectal mass: (4) Hypokalemia: (5) Anemia: (6) Acute hyponatremia: (7) Acute kidney injury: Plan Pt is a 53 yo male with pertinent hx of recent dx of rectal cancer with recent diverting ostomy who presented with sepsis, found to have a perirectal abscess. Sepsis Perirectal abscess in the setting of rectal cancer and recent diverting ostomy - pt with sepsis present on admission, blood culture showed e coli, c diff negative - had recent surg of diverting ostomy at [facility], we were unable to obtain records despite multiple attempts - CRP initially elevated up to 32, now 14 today 03/12 - antibiotics have been Ceftriaxone + flagyl + daptomycin since 03/08, daptomycin was cut out and pt's clinical status worsened with this stopped so it was re- added several days ago - noted yesterday and today to have more copious rectal serosanguineous fluid and blood drainage with occasional pus from rectum Noted this morning 03/13 to have copious rectal bleeding. BLS transport upgraded to ACLS/air transport due to acute status change. Hgb this morning stable 8.8 yesterday into today. Pus also noted to be coming from rectum. 2 units of blood held and then given to air transport team to give during flight given bleeding. Transported by air to [facility], tachycardic but stable at time of take- off. Acute Bilateral Obstructive Uropathy -Most likely secondary to large rectal mass - had Cr 2.74 on admission, normalized next day with william in place, Cr 0.37 at discharge - Patient hopes to be seen this week in [place] to discuss/plan definitive management for his rectal mass. Rectal Mass -Rectal mass was discovered during last admission to the [facility] ED via CT scan. Patient has been seen at [facility] by Colorectal surgery - has had a diverting colostomy - He was to follow with them later this week for further management planning. - to be transferred back to [facility] Anemia - Patient reports bloody rectal discharge. Hgb on arrival = 8.9. Acute drop on repeat labs to 6.9 most likely dilutional rather than acute blood loss anemia. - Received 2u PRBCs on 03/08 - Hgb today 8.8 - pt on Eliquis, reversal agent Kcentra given for DOAC reversal prior to transport Total Time Total Time Spent Total Time Spent (In Minutes): As per attending attestation. Discharge Plan Discharge Items Patient Disposition: Transfer Acute Care Hospital Reason For Visit: SEPSIS, BUDDY/OBSTRUCTIVE UROPATHY Discharge Diagnosis: Perirectal abscess in setting of rectal cancer and recent diverting ostomy Activity: Resume your previous activity Non-emergency contact: Primary Care Provider Call non-emergency contact if: you have any medication questions, your symptoms worsen and your temperature is above 101.5 Follow-up/Referrals: Gen Morgan [Primary Care Provider] - Diet: Regular Addtl Attending Provider Instructions: Pt is a 53 yo male with pertinent hx of recent dx of rectal cancer with recent diverting ostomy who presented with sepsis, found to have a perirectal abscess. Sepsis Perirectal abscess in the setting of rectal cancer and recent diverting ostomy - pt with sepsis present on admission, blood culture showed e coli, c diff negative - had recent surg of diverting ostomy at [facility], we were unable to obtain records despite multiple attempts - CRP initially elevated up to 32, now 14 today 03/12 - antibiotics have been Ceftriaxone + flagyl + daptomycin since 03/08, daptomycin was cut out and pt's clinical status worsened with this stopped so it was re- added - noted yesterday and today to have more copious rectal serosanguineous fluid and blood drainage with occasional pus from rectum Noted this morning 03/13 to have copious rectal bleeding. BLS transport upgraded to ACLS/air transport due to acute status change. Hgb this morning stable 8.8 yesterday into today. Pus also noted to be coming from rectum. Acute Bilateral Obstructive Uropathy -Most likely secondary to large rectal mass - had Cr 2.74 on admission, normalized next day with william in place - Patient hopes to be seen this week in [place] to discuss/plan definitive management for his rectal mass. Rectal Mass -Rectal mass was discovered during last admission to the [facility] ED via CT scan. Patient has been seen at [facility] by Colorectal surgery - has had a diverting colostomy - He was to follow with them later this week for further management planning. - to be transferred back to [facility] Anemia - Patient reports bloody rectal discharge. Hgb on arrival = 8.9. Acute drop on repeat labs to 6.9 most likely dilutional rather than acute blood loss anemia. - Received 2u PRBCs on 03/08 - Hgb today 8.8 Med list attached is home meds, was given antibiotics as noted above as well as home meds. Was getting NSS 125/hr due to poor po intake. Pending Studies at Discharge: No Stand-Alone Forms: [facility] Skilled Items Patient informed of condition?: Yes DNR: No Discharge Level of Care: Other Communicable Disease: No Discharge Prognosis: Stable Lines: None Urinary Catheter: Yes Medications and DC Order Prescriptions: Continued sennosides [senna] 8.6 mg tablet 17.2 mg PO HS PRN (Reason: Constipation) thiamine HCl (vitamin B1) 100 mg tablet 100 mg PO DAILY folic acid 1 mg tablet 1 mg PO QAM metoprolol tartrate 25 mg tablet 12.5 mg PO BID Eliquis 5 mg tablet 5 mg PO BID venlafaxine [Effexor XR] 37.5 mg capsule,extended release 24hr 37.5 mg PO DAILY PRN (Reason: depressed/anxious) venlafaxine [Effexor XR] 75 mg capsule,extended release 24hr 75 mg PO QAM risperidone 2 mg tablet 2 mg PO HS levothyroxine 50 mcg tablet 50 mcg PO DAILYBB metformin 500 mg tablet extended release 24 hr 1,000 mg PO QAM spironolactone 50 mg tablet 50 mg PO QAM fenofibrate nanocrystallized 48 mg tablet 48 mg PO QAM hydrochlorothiazide 12.5 mg tablet 12.5 mg PO QAM carvedilol 12.5 mg Tablet 12.5 mg PO BID Discharge Orders: Discharge Order (Routine); Ordered 03/13/24 Ordered By: Cintia Garcia Admission Data Admit Date/Time: 03/08/24 00:58 Attending Provider: Evelin Aguayo Admit Provider: Marivel Lloyd Primary Care Provider: Gen Morgan Other Providers: Sean Webber Supervising Physician Co-Signing Physician Notes I personally examined the patient and verified cornelius points of history and exam, discussed case, and agree with decision making and plan documented by Dr. Garcia. Patient is a 53-year-old male with known rectal mass and abscess on admission for sepsis. This morning, was called to bedside, patient was hemorrhaging blood per rectum. Arrangements were made to have patient airlifted back to [facility] where he had his initial surgery. Throughout the admission, medical records were not available from [facility] however were requested. Prior to transfer, Eliquis was held and reversed, patient was airlifted with blood for transfusion. [facility] OR awaiting patient's arrival for intervention. Resident Activity Tracking Resident Involvement: Resident Care Provided Care Provided: Adult Hospital Medicine
== END 2024-03-13 11:00 | disposition short-term general hospital (02) | DRG 872 ==
LOC: ED 18:17 → EDINP 03-08 00:58 → SUATTDRO 03-08 00:58 → 2S 03-08 19:27

== ENCOUNTER 2025-01-19 17:25 | Inpatient (IN) ==
[2025-01-19] MEDS ORDERED: SODIUM CHLORIDE 0.9% 100 ML IV PRN ×2 (18:19→22:49)
[2025-01-19] MEDS: NOREPINEPHRINE/D5W 4 MG/250 ML PLCT IV SCH (18:21)
[2025-01-19] MEDS: cefTRIAXone SODIUM 2,000 MG/50 ML BAG IV STA (18:22)
[2025-01-19] MEDS: SODIUM CHLORIDE 0.9% 1,000 ML IV ONE (18:22)
[2025-01-19 18:27] LABS: Alanine Aminotransferase 13.0 U/L (7-52); Albumin Globulin Ratio 0.5 (0.9-2); Alkaline Phosphatase 113.0 U/L (34-104); Anion Gap 9.0 (3-11); Bilirubin,Total 0.3 mg/dl (0.2-1.0); Blood Urea Nitrogen 29.0 mg/dl (6-23); Calcium 8.9 mg/dl (8.6-10.3); Carbon Dioxide 14.0 mmol/L (21-32); Chloride 98.0 mmol/L (98-107); Creatinine Clr Calc Pharmacy 44.1 ml/min; Globulin 4.2 gm/dl (2.5-4.0); Glucose 254.0 mg/dl (70-99(Fasting)); Hematocrit (blood only) 18.7 % (42.0-52.0); Hemoglobin 5.8 g/dl (14.0-18.0); Magnesium 1.5 mg/dl (1.7-2.4); Mean Corpuscular Hemoglobin 25.9 pg (25.0-34.0); Mean Corpuscular Volume 83.5 fL (80.0-100.0); Platelet Count 284 K/uL (130-400); Potassium 5.8 mmol/L (3.5-5.1); RDW Standard Deviation 46.6 fL (36.4-46.3); Red Blood Count 2.24 M/uL (4.70-6.10); Sodium 121.0 mmol/L (136-145); Total Protein 6.3 gm/dl (6.0-8.3); White Blood Count 22.03 K/ul (4.8-10.8)
--- NOTE | 2025-01-19 18:29 | XRay Report ---
Clinical History: Sepsis Technique: A frontal view of the chest was obtained Comparison is made to the prior examination today 03/09/2024 Findings: There is mild left lung base atelectasis. The heart size is within normal limits. No pleural effusion or pneumothorax is seen. There is suspected mild pulmonary edema No fracture is noted. No foreign body is seen Impression: Suspected mild pulmonary edema Electronically signed by Salvador Braun 01-19-2025 6:29 PM
[2025-01-19 18:32] LABS: Immature Granulocytes # (auto) 0.41 K/uL (0.01-0.20); Immature Granulocytes % (auto) 1.9 %; Polychromasia 1+
[2025-01-19 18:38] LABS: INR 1.2 (0.9-1.1); Partial Thromboplastin Time 35 Seconds (21-31); Prothrombin Time 12.4 Seconds (9.0-12.0)
[2025-01-19] MEDS ORDERED: VANCOMYCIN CONSULT ACTIVE PRN (18:39)
--- NOTE | 2025-01-19 19:04 | Emergency Department Note ---
Impression & Plan Severe sepsis with septic shock, Acute blood loss anemia, Lactic acidosis, Hyponatremia ED Provider Note NAME: KEVIN KELLER AGE: 54 SEX: M : 1970 ARRIVES VIA: Ambulance INFORMANT: Patient, ED PROVIDER(S): Elise Gan MD CHIEF COMPLAINT: "Acting funny " HPI: This is a 54-year-old male with history of choledochal cancer status post ostomy presenting for confusion. Patient provide much history. He states he feels fine with no current complaints. Their current report is that family said he was confused. He declines chest pain or shortness of breath. ROS: Unable to obtain due to AMS PHY EXAMINATION: General: Pale Eyes: Normal inspection, extraocular muscles intact Ear, nose, throat: Normal external exam, pale conjunctivae Neck: Normal range of motion Respiratory: lungs clear to auscultation bilaterally Cardiovascular: Regular rate/rhythm, no murmur GI: soft, nontender, no guarding or rebound, ostomy site without tenderness Extremities: nontender, moves all extremities Neuro: The patient awake and alert, appropriately conversive,Not oriented, no focal deficits, symmetric faces Skin: Warm, dry, and intact [employer]-year-old male with history of colorectal cancer status post ostomy presenting for confusion. Patient very septic at this time. He is tachycardic, hypotensive. Pressures are in the 80s systolic with heart rates in the 120s. Will start empiric antibiotics. Started on ceftriaxone IV. Also added on vancomycin. Get basic blood work doing lactic acid, blood cultures. Fox catheter does appear old with cloudy urine - Patient received 1 L normal saline per EMS. Will give another liter here. -Chest Xray independently interpreted by me showing no pneumothorax, focal opacity, or pleural effusions. -Patient's blood pressure still low despite fluid resuscitation. Will give final 500 cc bolus and start Levophed at this time -Patient Levophed uptitrated to a MAP of 65 -His hemoglobin returned at 5.8, hemoglobin downtrending, was previously 8.9 as per his sister when 3 days ago. -Patient ordered for blood at this time -Patient's lab work significantly abnormal with a sodium of 121, potassium 5.8, CO2 of 14 and creatinine of 1.81. Leukocytosis at 22. Lactic acid initially elevated at over 5. Second recheck downtrending at 3.8 -Urinalysis does show signs of UTI -Due to patient's signs of sepsis, will admit the patient -Dr. Kong consulted for admission. He discussed with ICU who request CTA abdomen/pelvis -CTA ordered - Patient goes upstairs to ICU Differential diagnosis: Sepsis, UTI, pneumonia Independent History obtained from: Sister, father Diagnostics interpreted by me: ECG: None Cardiac Monitoring: An order was placed for continuous cardiac monitoring. The monitor shows a rate of 124 sinus tachycardia rhythm. Critical Care Note: I have personally spent 65 minutes of critical care time in the direct management of this patient. This includes bedside care, interpretation of diagnostic studies, and testing, discussion with consultants, patient, and family members, and other required patient management activities. This 65 minutes is in excess of all separately billable procedures. Past Med/Surg History Problem List (Updated 01/20/25 @ 18:17 by Elise Gan MD) Pancreatitis Hypomagnesemia Hyponatremia (Acute) Metabolic acidosis Shock circulatory Acute blood loss anemia (Acute) Anemia (Acute) Rectal mass (Acute) Acute bilateral obstructive uropathy (Acute) High anion gap metabolic acidosis (Acute) Hematochezia (Acute) Hyponatremia Schizophrenia Hyperkalemia (Acute) Anemia (Acute) Rectal mass (Acute) Lactic acidosis (Acute) Severe sepsis with septic shock (Acute) Medical History Hypokalemia Acute kidney injury Acute hyponatremia Sepsis Hypothyroid Social History Smoking Status: Never smoker Second Hand Exposure: No; Do You Dip or Chew Tobacco: No; Tobacco Cessation Education Requested by Patient: No Hx Alcohol Use: No Hx Substance Use: No Preferred Language: Citizen Of [place] Communication Ability: Effective Fur Dry Cleaner Required: No Beliefs That Will Affect Care: Spiritual Current Living Situation: Family Other Information That Helps Us Care for You: No Feels Safe at Home: Yes Safety Concerns: Feels Safe At This Time Assistive Devices: None Allergies Allergies Allergy/AdvReac Type Severity Reaction Status Date / Time aspirin Allergy Mild Unknown Unverified 03/07/24 22:24 Penicillins Allergy Mild Unknown Verified 03/07/24 22:24 cefepime Allergy Confusion Verified 01/19/25 18:53 Home Meds Home Medications Medication Instructions Recorded Confirmed levothyroxine 50 mcg tablet 50 mcg PO DAILYBB 02/03/24 01/19/25 metformin 500 mg tablet,extended 500 mg PO QAM 02/03/24 01/19/25 release 24 hr risperidone 2 mg tablet 2 mg PO HS 02/03/24 01/19/25 venlafaxine 75 mg capsule,extended 150 mg PO QAM 02/03/24 01/19/25 release 24 hr (Effexor XR) apixaban 5 mg tablet (Eliquis) 5 mg PO BID 03/07/24 01/19/25 folic acid 1 mg tablet 1 mg PO QAM 03/07/24 01/19/25 thiamine HCl (vitamin B1) 100 mg 100 mg PO DAILY 03/07/24 01/19/25 tablet ammonium lactate 12 % lotion 1 applic topical BID 01/19/25 01/19/25 cephalexin 500 mg capsule 500 mg PO BID 01/19/25 01/19/25 cholecalciferol (vitamin D3) 25 25 mcg PO DAILY 01/19/25 01/19/25 mcg (1,000 unit) capsule (Vitamin D3) ciprofloxacin HCl 250 mg tablet 250 mg PO Q12H 01/19/25 01/19/25 magnesium oxide 400 mg PO DAILY 01/19/25 01/19/25 metoprolol succinate 25 mg 12.5 mg PO DAILY 01/19/25 01/19/25 tablet,extended release 24 hr midodrine 10 mg tablet 10 mg PO TIDM 01/19/25 01/19/25 nystatin 100,000 unit/gram topical 1 applic topical BID 01/19/25 01/19/25 cream pantoprazole 40 mg tablet,delayed 40 mg PO DAILY 01/19/25 01/19/25 release potassium chloride 20 mEq 20 meq PO DAILY 01/19/25 01/19/25 tablet,extended release(part/cryst) Results & Data (ED) Vital Signs Vital Signs - 24 hr 01/19/25 18:19 01/19/25 18:25 01/19/25 18:26 Temperature Temperature Source Pulse Rate 116 H 113 H Pulse Rate [Finger] Pulse Rate from SpO2 Sensor 114 H Respiratory Rate 32 H 28 H Blood Pressure 80/48 L Blood Pressure [Left Arm] Blood Pressure Mean 55 Blood Pressure Mean [Left Arm] Pulse Oximetry 100 100 100 Oxygen Delivery Method Room Air 01/19/25 18:35 01/19/25 18:35 01/19/25 18:40 Temperature Temperature Source Pulse Rate 112 H Pulse Rate [Finger] Pulse Rate from SpO2 Sensor 112 H Respiratory Rate 28 H Blood Pressure 83/54 L 88/55 L 89/50 L Blood Pressure [Left Arm] Blood Pressure Mean 63 61 60 Blood Pressure Mean [Left Arm] Pulse Oximetry 100 Oxygen Delivery Method 01/19/25 18:45 01/19/25 18:45 01/19/25 19:05 Temperature Temperature Source Pulse Rate 114 H Pulse Rate [Finger] 115 H Pulse Rate from SpO2 Sensor 114 H Respiratory Rate 25 H 20 Blood Pressure 93/60 L 93/60 L Blood Pressure [Left Arm] 92/62 L Blood Pressure Mean 68 68 Blood Pressure Mean [Left Arm] 72 Pulse Oximetry 100 100 Oxygen Delivery Method Room Air 01/19/25 19:22 01/19/25 19:50 01/19/25 20:00 Temperature 36.5 C 37.2 C Temperature Source Oral Oral Pulse Rate 118 H 118 H Pulse Rate [Finger] 115 H Pulse Rate from SpO2 Sensor Respiratory Rate 18 18 16 Blood Pressure 103/67 95/49 L Blood Pressure [Left Arm] 103/66 Blood Pressure Mean 79 64 Blood Pressure Mean [Left Arm] 78 Pulse Oximetry 99 100 100 Oxygen Delivery Method Room Air 01/19/25 20:05 01/19/25 20:35 01/19/25 21:35 Temperature 36.7 C 36.7 C 36.4 C L Temperature Source Oral Oral Oral Pulse Rate 118 H 123 H 122 H Pulse Rate [Finger] Pulse Rate from SpO2 Sensor Respiratory Rate 18 20 19 Blood Pressure 103/66 108/64 98/68 L Blood Pressure [Left Arm] Blood Pressure Mean 78 78 78 Blood Pressure Mean [Left Arm] Pulse Oximetry 99 100 100 Oxygen Delivery Method 01/19/25 21:46 01/19/25 22:00 01/19/25 22:35 Temperature 36.5 C Temperature Source Oral Pulse Rate 123 H 127 H Pulse Rate [Finger] 123 H Pulse Rate from SpO2 Sensor Respiratory Rate 18 20 Blood Pressure 111/80 Blood Pressure [Left Arm] 107/75 Blood Pressure Mean 90 Blood Pressure Mean [Left Arm] 85 Pulse Oximetry 99 100 Oxygen Delivery Method Room Air Laboratory Data 01/20/25 09:44 01/20/25 15:34 Lab Results 01/19/25 01/19/25 01/19/25 Range/Units 17:40 17:40 17:42 WBC 22.03 H (4.8-10.8) K/ul RBC 2.24 L (4.70-6.10) M/uL Hgb 5.8 L* (14.0-18.0) g/dl POC Hgb (14.0-18.0) g/dl Hct 18.7 L* (42.0-52.0) % POC Hct (42-52) % MCV 83.5 (80.0-100.0) fL MCH 25.9 (25.0-34.0) pg MCHC 31.0 L (32.0-36.0) g/dL RDW Std Deviation 46.6 H (36.4-46.3) fL RDW Coeff of Dru 15.4 H (11.5-14.5) % Plt Count 284 (130-400) K/uL MPV 9.4 (9.4-12.4) fL Immature Gran % (Auto) 1.9 % Neut % (Auto) 90.6 % Lymph % (Auto) 3.2 % [place] % (Auto) 4.0 % Eos % (Auto) 0.2 % Baso % (Auto) 0.1 % Neut # (Auto) 19.95 H (1.40-6.50) K/uL Lymph # (Auto) 0.70 L (1.20-3.40) K/uL [place] # (Auto) 0.89 H (0.11-0.59) K/uL Eos # (Auto) 0.05 (0.00-0.50) K/uL Baso # (Auto) 0.03 (0.00-0.20) K/uL Immature Gran # (Auto) 0.41 H (0.01-0.20) K/uL Polychromasia 1+ PT 12.4 H (9.0-12.0) Seconds INR 1.2 H (0.9-1.1) APTT 35 H (21-31) Seconds PTT Ratio 1.3 POC Sodium (135-144) mmol/L Sodium 121 L (136-145) mmol/L POC Potassium (3.3-5.0) mmol/L Potassium 5.8 H (3.5-5.1) mmol/L POC Chloride (101-112) mmol/L Chloride 98 (98-107) mmol/L Carbon Dioxide 14 L (21-32) mmol/L POC Total CO2 (24-31) mmol/L Anion Gap 9 (3-11) POC Anion Gap (16-25) mmol/L POC BUN (7-18) mg/dl BUN 29 H (6-23) mg/dl Creatinine 1.81 H (0.6-1.4) mg/dl POC Creatinine (0.6-1.3) mg/dl Est Cr Clr Drug Dosing 44.1 ml/min eGFR 43.88 BUN/Creatinine Ratio 16.0 (10-20) Glucose 254 H (70-99(Fasting)) mg/dl POC Glucose (other) (70-99) mg/dl Lactate 5.3 H* (0.4-2.0) mmol/L Calcium 8.9 (8.6-10.3) mg/dl POC Ioniz Calcium Sina (1.12-1.32) mmol/l Magnesium 1.5 L (1.7-2.4) mg/dl Total Bilirubin 0.3 (0.2-1.0) mg/dl AST 13 (13-39) U/L ALT 13 (7-52) U/L Alkaline Phosphatase 113 H (34-104) U/L Troponin I High Sens 9.8 (0-20) pg/ml Total Protein 6.3 (6.0-8.3) gm/dl Albumin 2.1 L (3.4-5.0) gm/dl Globulin 4.2 H (2.5-4.0) gm/dl Albumin/Globulin Ratio 0.5 L (0.9-2) Procalcitonin 7.96 H (0-0.5) ng/ml Enterobacterales (PCR) DETECTED A (NotDetected) Enterococc faecium PCR DETECTED A (NotDetected) K. pneumoniae group (PCR) DETECTED A (NotDetected) mcr-1 Colistin Res Gene PCR Not Detected (NotDetected) Paul/B-Vanco Res Genes VRE Not Detected (NotDetected) blaIMP Car res Gene PCR Not Detected (NotDetected) KPC-Carbap Res Gene PCR Not Detected (NotDetected) blaNDM Car Res Gene PCR Not Detected (NotDetected) OXA-48 Carbapenem Resis Gene (PCR) Not Detected (NotDetected) blaVIM Car Res Gene PCR Not Detected (NotDetected) CTX-M Gene Resistance (PCR) Not Detected (NotDetected) Bld Cult ID Panel PCR See PCR Comment See PCR Comment (NotDetected) Blood Type Antibody Screen Crossmatch 01/19/25 01/19/25 01/19/25 Range/Units 17:51 17:53 19:23 WBC (4.8-10.8) K/ul RBC (4.70-6.10) M/uL Hgb (14.0-18.0) g/dl POC Hgb 5.4 L* (14.0-18.0) g/dl Hct (42.0-52.0) % POC Hct 16 L* (42-52) % MCV (80.0-100.0) fL MCH (25.0-34.0) pg MCHC (32.0-36.0) g/dL RDW Std Deviation (36.4-46.3) fL RDW Coeff of Dru (11.5-14.5) % Plt Count (130-400) K/uL MPV (9.4-12.4) fL Immature Gran % (Auto) % Neut % (Auto) % Lymph % (Auto) % [place] % (Auto) % Eos % (Auto) % Baso % (Auto) % Neut # (Auto) (1.40-6.50) K/uL Lymph # (Auto) (1.20-3.40) K/uL [place] # (Auto) (0.11-0.59) K/uL Eos # (Auto) (0.00-0.50) K/uL Baso # (Auto) (0.00-0.20) K/uL Immature Gran # (Auto) (0.01-0.20) K/uL Polychromasia PT (9.0-12.0) Seconds INR (0.9-1.1) APTT (21-31) Seconds PTT Ratio POC Sodium 123 L (135-144) mmol/L Sodium (136-145) mmol/L POC Potassium 6.0 H (3.3-5.0) mmol/L Potassium (3.5-5.1) mmol/L POC Chloride 101 (101-112) mmol/L Chloride (98-107) mmol/L Carbon Dioxide (21-32) mmol/L POC Total CO2 13 L (24-31) mmol/L Anion Gap (3-11) POC Anion Gap 16.0 (16-25) mmol/L POC BUN 24 H (7-18) mg/dl BUN (6-23) mg/dl Creatinine (0.6-1.4) mg/dl POC Creatinine 2.1 H (0.6-1.3) mg/dl Est Cr Clr Drug Dosing ml/min eGFR BUN/Creatinine Ratio (10-20) Glucose (70-99(Fasting)) mg/dl POC Glucose (other) 253 H (70-99) mg/dl Lactate 3.8 H* (0.4-2.0) mmol/L Calcium (8.6-10.3) mg/dl POC Ioniz Calcium Sina 1.32 (1.12-1.32) mmol/l Magnesium (1.7-2.4) mg/dl Total Bilirubin (0.2-1.0) mg/dl AST (13-39) U/L ALT (7-52) U/L Alkaline Phosphatase (34-104) U/L Troponin I High Sens (0-20) pg/ml Total Protein (6.0-8.3) gm/dl Albumin (3.4-5.0) gm/dl Globulin (2.5-4.0) gm/dl Albumin/Globulin Ratio (0.9-2) Procalcitonin (0-0.5) ng/ml Enterobacterales (PCR) (NotDetected) Enterococc faecium PCR (NotDetected) K. pneumoniae group (PCR) (NotDetected) mcr-1 Colistin Res Gene PCR (NotDetected) Paul/B-Vanco Res Genes (NotDetected) blaIMP Car res Gene PCR (NotDetected) KPC-Carbap Res Gene PCR (NotDetected) blaNDM Car Res Gene PCR (NotDetected) OXA-48 Carbapenem Resis Gene (PCR) (NotDetected) blaVIM Car Res Gene PCR (NotDetected) CTX-M Gene Resistance (PCR) (NotDetected) Bld Cult ID Panel PCR (NotDetected) Blood Type B Positive Antibody Screen NEGATIVE Crossmatch See Detail Administered Medications Pantoprazole Sodium (Protonix) 40 mg in 10 mls @ 5 mls/min IV BID BHAKTI Stop: 02/19/25 08:59 Last Admin: 01/20/25 09:43 Dose: 5 mls/min Documented By: LINCOLN Piperacillin Sod/Tazobactam Sod (Zosyn) 4.5 gm in 100 mls @ 25 mls/hr IV Q8H BHAKTI; Protocol Stop: 01/30/25 05:59 Last Admin: 01/20/25 17:20 Dose: 25 mls/hr Documented By: Infusion: 01/20/25 09:52 Dose: Infused Documented By: Infusion: 01/20/25 06:37 Dose: 25 mls/hr Documented By: Admin: 01/20/25 05:52 Dose: 25 mls/hr Documented By: NAVID Parenteral Electrolytes (Plasma-Lyte A Ph 7.4) 1,000 mls @ 125 mls/hr IV .Q8H BHAKTI Stop: 01/23/25 02:14 Last Admin: 01/20/25 10:02 Dose: 125 mls/hr Documented By: Infusion: 01/20/25 10:02 Dose: Infused Documented By: Infusion: 01/20/25 06:37 Dose: 125 mls/hr Documented By: Admin: 01/20/25 02:38 Dose: 125 mls/hr Documented By: NAVID Insulin Aspart (Insulin Aspart Per Unit Charge) 0 units SC Q6 BHAKTI Stop: 02/19/25 01:44 Last Admin: 01/20/25 17:20 Dose: Not Given Documented By: RLMary Admin: 01/20/25 05:57 Dose: 2 units Documented By: NAVID Co-signed By: TP Admin: 01/20/25 01:58 Dose: 3 units Documented By: NAVID Co-signed By: ARTEMIO Midodrine (Midodrine Hcl 10 Mg Tab) 10 mg PO TIDM BHAKTI Stop: 02/19/25 07:59 Last Admin: 01/20/25 17:20 Dose: Not Given Documented By: Admin: 01/20/25 08:45 Dose: 10 mg Documented By: LINCOLN Discontinued Medications Diatrizoate Meglumine (Diatrizoate Meglumine 30% 100ml Vial) 50 ml INSTIL UD PRN PRN Reason: Radiology Use Stop: 01/24/25 12:28 Last Admin: 01/20/25 13:02 Dose: 30 ml Documented By: [id number] Sodium Chloride (Nss) 1,000 mls @ 999 mls/hr IV .Q1H1M ONE Stop: 01/19/25 18:52 Last Infusion: 01/19/25 20:00 Dose: Infused Documented By: Admin: 01/19/25 18:22 Dose: 999 mls/hr Documented By: MEGHAN Ceftriaxone Sodium (Rocephin) 2,000 mg in 50 mls @ 100 mls/hr IV NOW STA Stop: 01/19/25 18:21 Last Infusion: 01/19/25 18:51 Dose: Infused Documented By: Admin: 01/19/25 18:22 Dose: 100 mls/hr Documented By: MEGHAN Norepinephrine Bitartrate (Levophed/D5w) 4 mg in 250 mls @ 0 mls/hr IV .Q0M BHAKTI; Protocol Stop: 02/18/25 18:29 Last Titration: 01/20/25 13:31 Dose: Infused Documented By: LINCOLN Co-signed By: NAVID(2) Admin: 01/20/25 05:52 Dose: Not Given Documented By: Titration: 01/20/25 03:00 Dose: 0 mcg/kg/min, 0 mls/hr Documented By: NAVID Co-signed By: [id number] Titration: 01/20/25 02:39 Dose: 0.03 mcg/kg/min, 7.5 mls/hr Documented By: NAVID Co-signed By: TP Admin: 01/20/25 02:38 Dose: Not Given Documented By: ESMary Titration: 01/20/25 02:20 Dose: 0.05 mcg/kg/min, 12.5 mls/hr Documented By: NAVID Co-signed By: TP Titration: 01/20/25 01:38 Dose: 0.07 mcg/kg/min, 17.5 mls/hr Documented By: NAVID Co-signed By: [id number] Titration: 01/20/25 01:03 Dose: 0.09 mcg/kg/min, 22.5 mls/hr Documented By: ESG Co-signed By: [id number] Admin: 01/20/25 00:44 Dose: 0.11 mcg/kg/min, 27.6 mls/hr Documented By: ESG Co-signed By: TP Titration: 01/20/25 00:44 Dose: Infused Documented By: ESG Co-signed By: TP Titration: 01/20/25 00:35 Dose: 0.11 mcg/kg/min, 27.6 mls/hr Documented By: ESG Co-signed By: TP Titration: 01/20/25 00:20 Dose: 0.13 mcg/kg/min, 32.6 mls/hr Documented By: ESG Co-signed By: TP Titration: 01/19/25 18:58 Dose: 0.15 mcg/kg/min, 37.6 mls/hr Documented By: MEGHAN Co-signed By: BREANA Titration: 01/19/25 18:41 Dose: 0.13 mcg/kg/min, 32.6 mls/hr Documented By: MEGHAN Co-signed By: BREANA Titration: 01/19/25 18:37 Dose: 0.11 mcg/kg/min, 27.6 mls/hr Documented By: MEGHAN Co-signed By: BREANA Titration: 01/19/25 18:30 Dose: 0.09 mcg/kg/min, 22.5 mls/hr Documented By: MEGHAN Co-signed By: BREANA Titration: 01/19/25 18:26 Dose: 0.07 mcg/kg/min, 17.5 mls/hr Documented By: MEGHAN Co-signed By: ENRRIQUE Admin: 01/19/25 18:21 Dose: 0.05 mcg/kg/min, 12.5 mls/hr Documented By: MEGHAN Co-signed By: ENRRIQUE Vancomycin HCl 1,750 mg/ (Sodium Chloride) 535 mls @ 200 mls/hr IV NOW ONE Stop: 01/19/25 21:19 Last Infusion: 01/19/25 22:44 Dose: Infused Documented By: Admin: 01/19/25 19:37 Dose: 200 mls/hr Documented By: CHARLI Pantoprazole Sodium (Protonix) 40 mg in 10 mls @ 5 mls/min IV NOW ONE Stop: 01/19/25 20:40 Last Admin: 01/20/25 00:59 Dose: 5 mls/min Documented By: NAVID Magnesium Sulfate/Dextrose (Magnesium Sulfate / D5w) 1 gm in 100 mls @ 50 mls/hr IV ONE ONE Stop: 01/20/25 01:00 Last Admin: 01/20/25 01:02 Dose: Not Given Documented By: NAVID Piperacillin Sod/Tazobactam Sod (Zosyn) 4.5 gm in 100 mls @ 200 mls/hr IV NOW ONE; Protocol Stop: 01/20/25 00:13 Last Infusion: 01/20/25 01:03 Dose: Infused Documented By: Admin: 01/20/25 00:35 Dose: 200 mls/hr Documented By: NAVID Magnesium Sulfate/Dextrose (Magnesium Sulfate / D5w) 1 gm in 100 mls @ 50 mls/hr IV Q2H BHAKTI Stop: 01/20/25 05:44 Last Infusion: 01/20/25 06:37 Dose: Infused Documented By: Admin: 01/20/25 04:25 Dose: 50 mls/hr Documented By: Infusion: 01/20/25 04:25 Dose: Infused Documented By: Admin: 01/20/25 02:25 Dose: 50 mls/hr Documented By: Infusion: 01/20/25 02:20 Dose: Infused Documented By: Admin: 01/20/25 00:20 Dose: 50 mls/hr Documented By: NAVID Thiamine HCl 300 mg/ Sodium (Chloride) 53 mls @ 210 mls/hr IV NOW STA Stop: 01/20/25 00:10 Last Infusion: 01/20/25 01:03 Dose: Infused Documented By: Admin: 01/20/25 00:35 Dose: 210 mls/hr Documented By: NAVID Thiamine HCl 100 mg/ Syringe 10 mls @ 2 mls/min IV QAM BHAKTI Stop: 02/19/25 08:59 Last Admin: 01/20/25 09:43 Dose: 2 mls/min Documented By: LINCOLN Vancomycin HCl 1,250 mg/ (Sodium Chloride) 275 mls @ 200 mls/hr IV Q24H BHAKTI Stop: 01/22/25 08:59 Last Infusion: 01/20/25 11:18 Dose: Infused Documented By: Admin: 01/20/25 09:38 Dose: 200 mls/hr Documented By: LINCOLN Sodium Chloride (Nss) 1,000 mls @ 999 mls/hr IV .Q1H1M BHAKTI Stop: 01/20/25 10:15 Last Infusion: 01/20/25 10:37 Dose: Infused Documented By: Admin: 01/20/25 09:36 Dose: 999 mls/hr Documented By: Infusion: 01/20/25 09:31 Dose: Infused Documented By: Admin: 01/20/25 08:30 Dose: 999 mls/hr Documented By: LINCOLN Albumin Human (Albumin 25%) 25 gm in 100 mls @ 50 mls/hr IV Q2H BHAKTI Stop: 01/20/25 12:14 Last Infusion: 01/20/25 13:31 Dose: Infused Documented By: Admin: 01/20/25 10:04 Dose: 50 mls/hr Documented By: Infusion: 01/20/25 10:04 Dose: Infused Documented By: Admin: 01/20/25 08:31 Dose: 50 mls/hr Documented By: LINCOLN Ioversol (Optiray 320 125ml) 118 ml IV ONCE ONE Stop: 01/19/25 21:25 Last Admin: 01/19/25 21:29 Dose: 118 ml Documented By: RUSTY Miscellaneous (Stat Iv Infusion Titration Per Protocol) 1 each N/A NOW STA Stop: 01/19/25 18:19 Last Admin: 01/19/25 19:37 Dose: Not Given Documented By: NAW Norepinephrine Bitartrate (Norepinephrine/D5w 4 Mg/250 Ml) Confirm Administered Dose 4 mg IV .STK-MED ONE Stop: 01/19/25 18:20 Last Admin: 01/19/25 19:37 Dose: Not Given Documented By: NAW Sodium Bicarbonate (Sodium Bicarb 8.4% Inj 50 Meq/50 Ml Syr) 50 meq IV NOW STA Stop: 01/20/25 08:12 Last Admin: 01/20/25 08:30 Dose: 50 meq Documented By: LINCOLN Imaging Data Radiologist's Impression: Chest X-Ray 01/19/25 17:38 Clinical History: Sepsis Technique: A frontal view of the chest was obtained Comparison is made to the prior examination today 03/09/2024 Findings: There is mild left lung base atelectasis. The heart size is within normal limits. No pleural effusion or pneumothorax is seen. There is suspected mild pulmonary edema No fracture is noted. No foreign body is seen Impression: Suspected mild pulmonary edema Electronically signed by Salvador Braun 01-19-2025 6:29 PM Abdomen/Pelvis CTA 01/19/25 20:30 Exam(s): CTA ABDOMEN + PELVIS With Contrast IV Amt: 118 cc opt i320 EXAM: CT Abdomen and Pelvis With Intravenous Contrast CLINICAL HISTORY: hypotension, hb 5.8, rectal mass. TECHNIQUE: Axial computed tomographic images of the abdomen and pelvis with intravenous contrast. CTDI is 17.1 mGy and DLP is 1048.04 mGy-cm. Automated exposure control was utilized for the study. A dose lowering technique was utilized adhering to the principles of ALARA. CONTRAST: Patient received 118 cc opt i320 of IV contrast COMPARISON: CTA abdomen and pelvis without contrast 03/07/2024 FINDINGS: VASCULATURE: Aorta: No acute findings. No abdominal aortic aneurysm. No dissection. Celiac trunk and mesenteric arteries: No acute findings. No occlusion or significant stenosis. Renal arteries: No acute findings. No occlusion or significant stenosis. Iliac arteries: No acute findings. No occlusion or significant stenosis. Lung bases: Minimal dependent subsegmental changes in the posterior lower lobes. No consolidation. ABDOMEN: Liver: Unremarkable. No mass. Gallbladder and bile ducts: Solitary subcentimeter gallstone. No gallbladder wall thickening. No ductal dilation. Pancreas: Similar calcifications involving the tail of the pancreas and at the pancreatic head consistent with chronic pancreatitis. However, there is new peripancreatic fat stranding and edema surrounding the pancreas. No ductal dilation. Spleen: Unremarkable. No splenomegaly. Adrenals: Unremarkable. No mass. Kidneys and ureters: Moderate bilateral hydroureteronephrosis with distention of the ureters extending to the pelvic mass. Stomach and bowel: The previously noted soft tissue rectal mass previously filling the pelvic outlet and extending below the pelvic floor has expanded with invasion of the obturator muscles, [id number]- left. There is also further extension inferiorly below the pelvic floor with involvement of the medial aspect of the gluteal muscles bilaterally. There is also extension to the skin surface with a pedunculated masslike component on the left now identified measuring 5.5 x 3.3 x 3.4 cm. There is heterogeneous enhancement of the mass but no obvious active arterial extravasation internally. No evidence for high-grade bowel obstruction. No evidence for intraluminal contrast extravasation within the stomach, small bowel or proximal colonic segments extending to the left lower quadrant colostomy, accounting for limitations with respiratory artifact. PELVIS: Appendix: No findings to suggest acute appendicitis. Bladder: The bladder is prominently displaced anteriorly with a Fox catheter in position. There is obliteration of the fat plane between the mass in the posterior aspect of the bladder with diffuse bladder wall prominence. Reproductive: Unremarkable as visualized. ABDOMEN and PELVIS: Intraperitoneal space: Unremarkable. No significant fluid collection. No free air. Bones/joints: No acute fracture. No dislocation. Soft tissues: Unremarkable. Lymph nodes: Unremarkable. No enlarged lymph nodes. IMPRESSION: 1. The previously noted soft tissue rectal mass previously filling the pelvic outlet and extending below the pelvic floor has expanded with invasion of the obturator muscles, [id number]-left. There is also further extension inferiorly below the pelvic floor with involvement of the medial aspect of the gluteal muscles bilaterally. There is also extension to the skin surface with a pedunculated masslike component on the left now identified measuring 5.5 x 3.3 x 3.4 cm. There is heterogeneous enhancement of the mass but no obvious active arterial extravasation internally. 2. No evidence for high-grade bowel obstruction. No evidence for intraluminal contrast extravasation within the stomach, small bowel or proximal colonic segments extending to the left lower quadrant colostomy, accounting for limitations with respiratory artifact. 3. Similar calcifications involving the tail of the pancreas and at the pancreatic head consistent with chronic pancreatitis. However, there is new peripancreatic fat stranding and edema surrounding the pancreas. The appearance is consistent with acute pancreatitis. 4. Moderate bilateral hydroureteronephrosis with distention of the ureters extending to the pelvic mass. A component of urinary retention is suspected from extrinsic compression by the mass. Electronically signed by: Tyree Hill MD 01/19/25 22:18 PM Discharge Plan Visit Data Chief Complaint: Infection Stated Complaint: ILLNESS ED Provider: Elise Gan Discharge Problem: Severe sepsis with septic shock, Acute blood loss anemia, Lactic acidosis, Hyponatremia Patient Disposition: Admitted As Inpatient Condition: Critical Discharge Instructions Interventions: ED Discharge Assessment Last Done: 01/19/25 23:11
[2025-01-19 19:13] LABS: Appearance Urine Cloudy (Clear); Bacteria Urine Automated None Seen (None Seen); Epithelial Cell Urine Auto 0-2 /hpf (0-2); Glucose Urine UA Negative (Negative); RBC Urine Automated >20 /hpf (0-2); WBC Urine Automated 21-50 /hpf (0-5)
[2025-01-19] MEDS: VANCOMYCIN HCL 1,750 MG in SODIUM CHLORIDE 0.9% 500 ML IV ONE (19:37)
[2025-01-19] MEDS: NOREPINEPHRINE/D5W 4 MG/250 ML IV ONE (19:37)
[2025-01-19] MEDS: STAT IV Infusion **Titration per Protocol STA (19:37)
[2025-01-19] MEDS: OPTIRAY 320 125ml IV ONE (21:29)
--- NOTE | 2025-01-19 22:20 | CT Scan Report ---
Exam(s): CTA ABDOMEN + PELVIS With Contrast IV Amt: 118 cc opt i320 EXAM: CT Abdomen and Pelvis With Intravenous Contrast CLINICAL HISTORY: hypotension, hb 5.8, rectal mass. TECHNIQUE: Axial computed tomographic images of the abdomen and pelvis with intravenous contrast. CTDI is 17.1 mGy and DLP is 1048.04 mGy-cm. Automated exposure control was utilized for the study. A dose lowering technique was utilized adhering to the principles of ALARA. CONTRAST: Patient received 118 cc opt i320 of IV contrast COMPARISON: CTA abdomen and pelvis without contrast 03/07/2024 FINDINGS: VASCULATURE: Aorta: No acute findings. No abdominal aortic aneurysm. No dissection. Celiac trunk and mesenteric arteries: No acute findings. No occlusion or significant stenosis. Renal arteries: No acute findings. No occlusion or significant stenosis. Iliac arteries: No acute findings. No occlusion or significant stenosis. Lung bases: Minimal dependent subsegmental changes in the posterior lower lobes. No consolidation. ABDOMEN: Liver: Unremarkable. No mass. Gallbladder and bile ducts: Solitary subcentimeter gallstone. No gallbladder wall thickening. No ductal dilation. Pancreas: Similar calcifications involving the tail of the pancreas and at the pancreatic head consistent with chronic pancreatitis. However, there is new peripancreatic fat stranding and edema surrounding the pancreas. No ductal dilation. Spleen: Unremarkable. No splenomegaly. Adrenals: Unremarkable. No mass. Kidneys and ureters: Moderate bilateral hydroureteronephrosis with distention of the ureters extending to the pelvic mass. Stomach and bowel: The previously noted soft tissue rectal mass previously filling the pelvic outlet and extending below the pelvic floor has expanded with invasion of the obturator muscles, [id number]- left. There is also further extension inferiorly below the pelvic floor with involvement of the medial aspect of the gluteal muscles bilaterally. There is also extension to the skin surface with a pedunculated masslike component on the left now identified measuring 5.5 x 3.3 x 3.4 cm. There is heterogeneous enhancement of the mass but no obvious active arterial extravasation internally. No evidence for high-grade bowel obstruction. No evidence for intraluminal contrast extravasation within the stomach, small bowel or proximal colonic segments extending to the left lower quadrant colostomy, accounting for limitations with respiratory artifact. PELVIS: Appendix: No findings to suggest acute appendicitis. Bladder: The bladder is prominently displaced anteriorly with a Fox catheter in position. There is obliteration of the fat plane between the mass in the posterior aspect of the bladder with diffuse bladder wall prominence. Reproductive: Unremarkable as visualized. ABDOMEN and PELVIS: Intraperitoneal space: Unremarkable. No significant fluid collection. No free air. Bones/joints: No acute fracture. No dislocation. Soft tissues: Unremarkable. Lymph nodes: Unremarkable. No enlarged lymph nodes. IMPRESSION: 1. The previously noted soft tissue rectal mass previously filling the pelvic outlet and extending below the pelvic floor has expanded with invasion of the obturator muscles, [id number]-left. There is also further extension inferiorly below the pelvic floor with involvement of the medial aspect of the gluteal muscles bilaterally. There is also extension to the skin surface with a pedunculated masslike component on the left now identified measuring 5.5 x 3.3 x 3.4 cm. There is heterogeneous enhancement of the mass but no obvious active arterial extravasation internally. 2. No evidence for high-grade bowel obstruction. No evidence for intraluminal contrast extravasation within the stomach, small bowel or proximal colonic segments extending to the left lower quadrant colostomy, accounting for limitations with respiratory artifact. 3. Similar calcifications involving the tail of the pancreas and at the pancreatic head consistent with chronic pancreatitis. However, there is new peripancreatic fat stranding and edema surrounding the pancreas. The appearance is consistent with acute pancreatitis. 4. Moderate bilateral hydroureteronephrosis with distention of the ureters extending to the pelvic mass. A component of urinary retention is suspected from extrinsic compression by the mass. Electronically signed by: Tyree Hill MD 01/19/25 22:18 PM
--- NOTE | 2025-01-19 23:05 | Critical Care Progress Note ---
Date of Service January 19, 2025 Assessment & Plan (1) Anemia: (2) Rectal mass: (3) Acute bilateral obstructive uropathy: (4) Lactic acidosis: (5) Shock circulatory: (6) Metabolic acidosis: (7) Hyponatremia: (8) Hypomagnesemia: Plan Reason Critically Ill: 54 YOM with known rectal mass and diverting colostomy (2023), presents with shock unspecified with organ dysfunction. To ICU for continued resuscitation, and weaning of vasopressors as able. Neuro - Metabolic Encephalopathy, Hx: Schizophrenia CAM ICU: [facility] - Patient with metabolic encephalopathy- unsure of baseline - Hyponatremia of 121 - free water restriction - follow q4 hours likely secondary to decrease solute intake and Aldactone use- follow goal correction 8mmol/24 hour - Continue with supportive care - Thiamine Cardiac - Shock unspecified, HX: HTN, HLD, - Shock unspecified- however acute blood loss/hypovolemia vs. distributive (septic) or combination of these is likely - CTA abd/pelvis with no acute arterial bleed, he is also without reports of hematemesis or hematochezia- follow closely - Transfuse to HGB of 7-8mg/dl - 2L Crystalloid received- consider further crystalloid support pending response to colloid and vasopressors - Lactate initially downtrending re-check on arrival - Bedside POCUS to evaluate volume status and myocardial functionality - ECG without STEMI - Hold Metoprolol - Continue Midodrine Respiratory - No acute needs GI - Rectal mass, diverting colostomy in place, HX: GERD - Previous admissions noted last year for rectal bleeding as well as evaluation at [facility] on initial diagnosis of rectal mass- reportedly not surgical candidate a nd has not received chemo/radiation - attempt to get records for oncological history and surgical evaluation from [facility] - Reportedly patient was seen recently in the last few days at [facility] and his H GB level was 8.6 however unable to confirm. - Mass appears to be extending out of anus- if this bleeds acutely he is likely a poor surgical candidate with his overall frailness- palliative/comfort measures may be appropriate - Some fat stranding around Pancreas with possibly tender abdomen- will send lipase- and supportive care with iv fluids as below - NPO for now RENAL/LYTES - ARF non oliguric, metabolic acidosis, multiple electrolyte disturbances - ARF likley pre-renal continue with resuscitation with colloid and crystalloid - Monitor renal function daily - Metabolic Acidosis - non gap- hypovolemia likely - Hyperkalemia- mild 5.8- should correct with acidosis correction - he is currently making adequate urine - if further volume support is needed will place on isotonic bicarb administration to assist with metabolic acidosis as well as hyperkalemia - Has received saline in the ER 2L - Obtain serum and urine osmo - Hyponatremia as above- follow q4-6 hours - Hypomag- replete - Hydronephrosis secondary to obstructing colon mass - decompress with william catheter - supportive care ENDO - DMII - Hold Metformin - ICU hyperglycemia protocol HEME - Anemia unspecified, leukocytosis - Anemia 5.8- possible acute blood loss on chronic anemia- source possibly GI with elevate BUN - transfuse for HGB 7-8mg/dl - CTA of abdomen did not show arterial bleed- could have venous component - Leukocytosis- 22- baseline appears to be 17-19- see ID section - On Eliquis per medication rec - unsure of reason - will hold at this time until hemodynamics and acute bleeding is ruled out ID - Septic shock can't exclude, source urine vs. intraabdominal - Can't exclude septic shock with leukocytosis, hypotension, tachycardia, and organ dysfunction - urine questionable and with rectal mass - Will place on Zosyn - Discontinue Vancomycin- consider daptomycin in further gram positive coverage needed - could consider antifungal for intraabdominal coverage with rectal mass- follow clinically LINES/IV ACCESS - PIV x3, William catheter Continue use of these lines DVT PROPHYLAXIS - SCDS - Hold on chemoprophylaxis as poss blood loss anemia DISPO: ICU while on vasopressors, follow his clinical response- he is currently listed as FULL CODE- Pending clinical course, appropriate goals of care discussion would be warranted in an inoperable or treated rectal mass wtih pr ogression shown on imaging. I have personally spent 48 minutes of critical care time in the direct management of this patient. This is a life/limb threatening event. This includes time spent evaluating patient, direct bedside care, chart review, placing orders, interpretation of diagnostic studies, discussion with consultants, patient, and family members, as well as other required patient management activities. This time is exclusive of all separately billable procedures, and separate from and in addition to any other critical care service time. Thank you for allowing us to participate in the care of this patient. Please refer to my attending physician's documentation for any further recommendations. Supervising Physician Co-Signing Physician Notes Patient seen and examined. EMR reviewed. Discussed with critical care RANGEL and agree with assessment plan as noted. For additional details please refer to my progress note from 01/20/2025 Subjective Patient is unable to provide any history or physical information, there is also no family with patient. All information in this consult/HPI is from chart review and discussion with admitting team. 54 YOM with medical history of: Schizophrenia, HTN, DMII, Hypothyroidism, Hypotension, GERD and large rectal mass for which he is s/p diverting colostomy placement at [facility] (2023) and has not received chemo or radiation therapy as well as also reported that [facility] has deemed non-operable mass. Adria arboleda was brought in via EMS for reports of confusion at home. He was noted to be hypotensive on arrival to the ER and was given 1L of crystalloid infusion and initiated on LEVOphed infusion. He had a CXR and routine labs performed to include UA, Blood Cultures, Lactate and Procalcitonin. Labs returned with HGB at 5.8 and without any external evidence of acute blood loss. He was initiated with 1 unit of PRBC, and given Rocephin and Vancomycin and Hospitalist was consulted for admission. Admitting service requested further imaging to evaluate for internal occult bleeding with CTA abd/pelvis. Imaging resulted with no acute arterial bleed or obstruction noted. Did note increase in rectal mass with invasion into surrounding musculature (obturator and gluteal muscles). Patient was seen in the ER, he is able to answer yes and no questions minimally. He is unsure why he came to the hospital. He was with a MAP of 95 on 0.15mcg/kg/min of LEVOphed and 1 unit of packed cells has just finished infusion. He is oxygenating well and is making adequate urine. Patient will be admitted to the ICU to continue with hemodynamic support while continuing resuscitation. Shock unspecified at this time to include hypovolemia vs. distributive or combination of. CODE: FULL Review of Systems Review of Systems: unable to perform secondary to patient mentation. Physical Exam Physical Exam: PHYSICAL EXAM: General: awake, alert, non ill appearing Head: Normocephalic, atraumatic ENT: PERRLA, EOMI, mucous membranes moist Neuro: AAO x 1, answers yes and no mostly appropriately, moves all extremities spontaneously, follows commands intermittently, no facial droop or focal deficit appreciated Chest: equal rise and fall of the chest, no accessory muscle use, Clear to auscultation, on room air, Cardiac: Regular rate and rhythm, telemetry reviewed- NSR no ectopy,, skin warm dry, cap refill <3 seconds, peripheral pulses +2 no JVD, no murmur, trace edema lower extremities GI: NABS x 4 quadrants, states abdomen doesn't hurt, but guards with palpation, : William to gravity draining dilute yellow urine Skin: Anus excoriated with mass protruding outward, Results & Data Results & Data Vital Signs (Past 12 Hours) Vital Signs Temp Pulse Pulse Resp BP BP Pulse Ox 01/19/25 22:35 36.5 C 127 H 20 111/80 100 01/19/25 22:00 123 H 18 107/75 99 01/19/25 21:46 123 H 01/19/25 21:35 36.4 C L 122 H 19 98/68 L 100 01/19/25 20:35 36.7 C 123 H 20 108/64 100 01/19/25 20:05 36.7 C 118 H 18 103/66 99 01/19/25 20:00 115 H 16 103/66 100 01/19/25 19:50 37.2 C 118 H 18 95/49 L 100 01/19/25 19:22 36.5 C 118 H 18 103/67 99 01/19/25 19:05 115 H 20 92/62 L 100 01/19/25 18:45 114 H 25 H 93/60 L 100 01/19/25 18:45 93/60 L 01/19/25 18:40 89/50 L 01/19/25 18:35 88/55 L 01/19/25 18:35 112 H 28 H 83/54 L 100 01/19/25 18:26 113 H 28 H 100 01/19/25 18:25 116 H 32 H 80/48 L 100 01/19/25 18:19 100 01/19/25 18:09 123 H 36 H 78/52 L 100 01/19/25 17:55 124 H 01/19/25 17:38 95 01/19/25 17:31 36.3 C L 122 H 22 86/60 L 95 O2 Del Method 01/19/25 22:35 01/19/25 22:00 Room Air 01/19/25 21:46 01/19/25 21:35 01/19/25 20:35 01/19/25 20:05 01/19/25 20:00 Room Air 01/19/25 19:50 01/19/25 19:22 01/19/25 19:05 Room Air 01/19/25 18:45 01/19/25 18:45 01/19/25 18:40 01/19/25 18:35 01/19/25 18:35 01/19/25 18:26 01/19/25 18:25 01/19/25 18:19 Room Air 01/19/25 18:09 01/19/25 17:55 01/19/25 17:38 Room Air 01/19/25 17:31 Room Air Laboratory Results Abnormal lab results 01/19/25 01/19/25 01/19/25 Range/Units 17:42 17:51 17:53 WBC 22.03 H (4.8-10.8) K/ul RBC 2.24 L (4.70-6.10) M/uL Hgb 5.8 L* (14.0-18.0) g/dl POC Hgb 5.4 L* (14.0-18.0) g/dl Hct 18.7 L* (42.0-52.0) % POC Hct 16 L* (42-52) % MCHC 31.0 L (32.0-36.0) g/dL RDW Std Deviation 46.6 H (36.4-46.3) fL RDW Coeff of Dru 15.4 H (11.5-14.5) % Neut # (Auto) 19.95 H (1.40-6.50) K/uL Lymph # (Auto) 0.70 L (1.20-3.40) K/uL Frontier # (Auto) 0.89 H (0.11-0.59) K/uL Immature Gran # (Auto) 0.41 H (0.01-0.20) K/uL PT 12.4 H (9.0-12.0) Seconds INR 1.2 H (0.9-1.1) APTT 35 H (21-31) Seconds POC Sodium 123 L (135-144) mmol/L Sodium 121 L (136-145) mmol/L POC Potassium 6.0 H (3.3-5.0) mmol/L Potassium 5.8 H (3.5-5.1) mmol/L Carbon Dioxide 14 L (21-32) mmol/L POC Total CO2 13 L (24-31) mmol/L POC BUN 24 H (7-18) mg/dl BUN 29 H (6-23) mg/dl Creatinine 1.81 H (0.6-1.4) mg/dl POC Creatinine 2.1 H (0.6-1.3) mg/dl Glucose 254 H (70-99(Fasting)) mg/dl POC Glucose (other) 253 H (70-99) mg/dl Lactate 5.3 H* (0.4-2.0) mmol/L Magnesium 1.5 L (1.7-2.4) mg/dl Alkaline Phosphatase 113 H (34-104) U/L Albumin 2.1 L (3.4-5.0) gm/dl Globulin 4.2 H (2.5-4.0) gm/dl Albumin/Globulin Ratio 0.5 L (0.9-2) Procalcitonin 7.96 H (0-0.5) ng/ml Urine Appearance (Clear) Urine Protein (Negative) Urine Blood (Negative) Ur Leukocyte Esterase (Negative) Urine WBC (Auto) (0-5) /hpf Urine RBC (Auto) (0-2) /hpf U Hyaline Cast (Auto) (0-2) /lpf Hyaline Casts (None Presnt) /lpf Granular Casts (None Prsent) /lpf Crossmatch See Detail 01/19/25 01/19/25 Range/Units 19:23 Unknown WBC (4.8-10.8) K/ul RBC (4.70-6.10) M/uL Hgb (14.0-18.0) g/dl POC Hgb (14.0-18.0) g/dl Hct (42.0-52.0) % POC Hct (42-52) % MCHC (32.0-36.0) g/dL RDW Std Deviation (36.4-46.3) fL RDW Coeff of Dru (11.5-14.5) % Neut # (Auto) (1.40-6.50) K/uL Lymph # (Auto) (1.20-3.40) K/uL Frontier # (Auto) (0.11-0.59) K/uL Immature Gran # (Auto) (0.01-0.20) K/uL PT (9.0-12.0) Seconds INR (0.9-1.1) APTT (21-31) Seconds POC Sodium (135-144) mmol/L Sodium (136-145) mmol/L POC Potassium (3.3-5.0) mmol/L Potassium (3.5-5.1) mmol/L Carbon Dioxide (21-32) mmol/L POC Total CO2 (24-31) mmol/L POC BUN (7-18) mg/dl BUN (6-23) mg/dl Creatinine (0.6-1.4) mg/dl POC Creatinine (0.6-1.3) mg/dl Glucose (70-99(Fasting)) mg/dl POC Glucose (other) (70-99) mg/dl Lactate 3.8 H* (0.4-2.0) mmol/L Magnesium (1.7-2.4) mg/dl Alkaline Phosphatase (34-104) U/L Albumin (3.4-5.0) gm/dl Globulin (2.5-4.0) gm/dl Albumin/Globulin Ratio (0.9-2) Procalcitonin (0-0.5) ng/ml Urine Appearance Cloudy A (Clear) Urine Protein 2+ H (Negative) Urine Blood 2+ H (Negative) Ur Leukocyte Esterase 2+ H (Negative) Urine WBC (Auto) 21-50 H (0-5) /hpf Urine RBC (Auto) >20 H (0-2) /hpf U Hyaline Cast (Auto) 11-20 H (0-2) /lpf Hyaline Casts Present A (None Presnt) /lpf Granular Casts Present A (None Prsent) /lpf Crossmatch Diagnostic Findings Chest X-Ray 01/19/25 17:38 Clinical History: Sepsis Technique: A frontal view of the chest was obtained Comparison is made to the prior examination today 03/09/2024 Findings: There is mild left lung base atelectasis. The heart size is within normal limits. No pleural effusion or pneumothorax is seen. There is suspected mild pulmonary edema No fracture is noted. No foreign body is seen Impression: Suspected mild pulmonary edema Electronically signed by Salvador Braun 01-19-2025 6:29 PM Abdomen/Pelvis CTA 01/19/25 20:30 Exam(s): CTA ABDOMEN + PELVIS With Contrast IV Amt: 118 cc opt i320 EXAM: CT Abdomen and Pelvis With Intravenous Contrast CLINICAL HISTORY: hypotension, hb 5.8, rectal mass. TECHNIQUE: Axial computed tomographic images of the abdomen and pelvis with intravenous contrast. CTDI is 17.1 mGy and DLP is 1048.04 mGy-cm. Automated exposure control was utilized for the study. A dose lowering technique was utilized adhering to the principles of ALARA. CONTRAST: Patient received 118 cc opt i320 of IV contrast COMPARISON: CTA abdomen and pelvis without contrast 03/07/2024 FINDINGS: VASCULATURE: Aorta: No acute findings. No abdominal aortic aneurysm. No dissection. Celiac trunk and mesenteric arteries: No acute findings. No occlusion or significant stenosis. Renal arteries: No acute findings. No occlusion or significant stenosis. Iliac arteries: No acute findings. No occlusion or significant stenosis. Lung bases: Minimal dependent subsegmental changes in the posterior lower lobes. No consolidation. ABDOMEN: Liver: Unremarkable. No mass. Gallbladder and bile ducts: Solitary subcentimeter gallstone. No gallbladder wall thickening. No ductal dilation. Pancreas: Similar calcifications involving the tail of the pancreas and at the pancreatic head consistent with chronic pancreatitis. However, there is new peripancreatic fat stranding and edema surrounding the pancreas. No ductal dilation. Spleen: Unremarkable. No splenomegaly. Adrenals: Unremarkable. No mass. Kidneys and ureters: Moderate bilateral hydroureteronephrosis with distention of the ureters extending to the pelvic mass. Stomach and bowel: The previously noted soft tissue rectal mass previously filling the pelvic outlet and extending below the pelvic floor has expanded with invasion of the obturator muscles, [id number]- left. There is also further extension inferiorly below the pelvic floor with involvement of the medial aspect of the gluteal muscles bilaterally. There is also extension to the skin surface with a pedunculated masslike component on the left now identified measuring 5.5 x 3.3 x 3.4 cm. There is heterogeneous enhancement of the mass but no obvious active arterial extravasation internally. No evidence for high-grade bowel obstruction. No evidence for intraluminal contrast extravasation within the stomach, small bowel or proximal colonic segments extending to the left lower quadrant colostomy, accounting for limitations with respiratory artifact. PELVIS: Appendix: No findings to suggest acute appendicitis. Bladder: The bladder is prominently displaced anteriorly with a William catheter in position. There is obliteration of the fat plane between the mass in the posterior aspect of the bladder with diffuse bladder wall prominence. Reproductive: Unremarkable as visualized. ABDOMEN and PELVIS: Intraperitoneal space: Unremarkable. No significant fluid collection. No free air. Bones/joints: No acute fracture. No dislocation. Soft tissues: Unremarkable. Lymph nodes: Unremarkable. No enlarged lymph nodes. IMPRESSION: 1. The previously noted soft tissue rectal mass previously filling the pelvic outlet and extending below the pelvic floor has expanded with invasion of the obturator muscles, [id number]-left. There is also further extension inferiorly below the pelvic floor with involvement of the medial aspect of the gluteal muscles bilaterally. There is also extension to the skin surface with a pedunculated masslike component on the left now identified measuring 5.5 x 3.3 x 3.4 cm. There is heterogeneous enhancement of the mass but no obvious active arterial extravasation internally. 2. No evidence for high-grade bowel obstruction. No evidence for intraluminal contrast extravasation within the stomach, small bowel or proximal colonic segments extending to the left lower quadrant colostomy, accounting for limitations with respiratory artifact. 3. Similar calcifications involving the tail of the pancreas and at the pancreatic head consistent with chronic pancreatitis. However, there is new peripancreatic fat stranding and edema surrounding the pancreas. The appearance is consistent with acute pancreatitis. 4. Moderate bilateral hydroureteronephrosis with distention of the ureters extending to the pelvic mass. A component of urinary retention is suspected from extrinsic compression by the mass. Electronically signed by: Tyree Hill MD 01/19/25 22:18 PM Medications Administered Norepinephrine Bitartrate (Levophed/D5w) 4 mg in 250 mls @ 37.575 mls/hr IV .Q6H40M [facility]; Protocol Stop: 02/18/25 18:29 Last Titration: 01/19/25 18:58 Dose: 0.15 mcg/kg/min, 37.6 mls/hr Documented By: MEGHAN Co-signed By: BREANA Titration: 01/19/25 18:41 Dose: 0.13 mcg/kg/min, 32.6 mls/hr Documented By: MEGHAN Co-signed By: BREANA Titration: 01/19/25 18:37 Dose: 0.11 mcg/kg/min, 27.6 mls/hr Documented By: MEGHAN Co-signed By: BREANA Titration: 01/19/25 18:30 Dose: 0.09 mcg/kg/min, 22.5 mls/hr Documented By: MEGHAN Co-signed By: BREANA Titration: 01/19/25 18:26 Dose: 0.07 mcg/kg/min, 17.5 mls/hr Documented By: MEGHAN Co-signed By: ENRRIQUE Admin: 01/19/25 18:21 Dose: 0.05 mcg/kg/min, 12.5 mls/hr Documented By: MEGHAN Co-signed By: ENRRIQUE Discontinued Medications Sodium Chloride (Nss) 1,000 mls @ 999 mls/hr IV .Q1H1M ONE Stop: 01/19/25 18:52 Last Infusion: 01/19/25 20:00 Dose: Infused Documented By: Admin: 01/19/25 18:22 Dose: 999 mls/hr Documented By: MEGHAN Ceftriaxone Sodium (Rocephin) 2,000 mg in 50 mls @ 100 mls/hr IV NOW STA Stop: 01/19/25 18:21 Last Infusion: 01/19/25 18:51 Dose: Infused Documented By: Admin: 01/19/25 18:22 Dose: 100 mls/hr Documented By: MEGHAN Vancomycin HCl 1,750 mg/ (Sodium Chloride) 535 mls @ 200 mls/hr IV NOW ONE Stop: 01/19/25 21:19 Last Infusion: 01/19/25 22:44 Dose: Infused Documented By: Admin: 01/19/25 19:37 Dose: 200 mls/hr Documented By: CHARLI Ioversol (Optiray 320 125ml) 118 ml IV ONCE ONE Stop: 01/19/25 21:25 Last Admin: 01/19/25 21:29 Dose: 118 ml Documented By: RUSTY Miscellaneous (Stat Iv Infusion Titration Per Protocol) 1 each N/A NOW STA Stop: 01/19/25 18:19 Last Admin: 01/19/25 19:37 Dose: Not Given Documented By: NAW Norepinephrine Bitartrate (Norepinephrine/D5w 4 Mg/250 Ml) Confirm Administered Dose 4 mg IV .STK-MED ONE Stop: 01/19/25 18:20 Last Admin: 01/19/25 19:37 Dose: Not Given Documented By: NAW ECG Additional Comments: Sinus tachycardiawithPremature atrial complexes Otherwise normal ECG When compared with ECG [id number] 05:22, Premature atrial complexesare nowPresent Inverted T waves have replaced nonspecific T wave abnormality inInferior leads Coding Level of Care Code 83342 CRITICAL CARE 1ST 30-74M Diagnoses Anemia D64.9 Anemia type: unspecified type Rectal mass K62.89 Acute bilateral obstructive uropathy N13.9 Lactic acidosis E87.20 Shock circulatory R57.9 Metabolic acidosis E87.20 Hyponatremia E87.1 Hypomagnesemia E83.42 (1) Anemia Anemia type: unspecified type Qualified Code(s): D64.9 - Anemia, unspecified
--- NOTE | 2025-01-19 23:08 | History & Physical Report ---
Date of Service January 19, 2025 Assessment & Plan (1) Severe sepsis with septic shock: (2) Rectal mass: (3) Anemia: (4) Hyponatremia: (5) Schizophrenia: (6) Acute kidney injury: Plan The patient is a 54-year-old male with a past medical history including rectal mass, severe sepsis with septic shock requiring ICU admission from 03/08-03/13/2024, acute bilateral obstructive uropathy, hyponatremia, schizophrenia, anemia and history of lactic acidosis. The patient was brought to the emergency department due to family concerns regarding worsening confusion. The patient himself had no current complaints. Patient has a known history of rectal mass, for which he was seen at [facility] 3 days ago, and was told that he was not a candidate for surgical treatment at that time. His hemoglobin per family at that visit was 8.9, and upon arrival to the ED today, his hemoglobin is 5.8. He was also found to be hypotensive, with blood pressure 78/52, and was started on Levophed infusion at that time. He was also found to have acute kidney injury, with creatinine 1.81, and base of 0.37. [facility] Severe sepsis with septic shock/severe anemia- He received 1 L NSS from the EMS, and 1 L normal saline while in ED. He also received 1 unit of PRBCs in the ED Continue Levophed begun in ED Transfuse 2 units PRBCs Admit to the ICU NPO Hold Eliquis, unclear if he has been taking it, and why he was started on it last year Continue vancomycin IV and ceftriaxone IV begun in ED Pantoprazole 40 mg IV twice daily, Rectal mass- CT angiography abdomen pelvis showing significant increase in size compared to previous Was told up at [facility] that he was not currently a surgical candidate Unclear if he has been offered chemotherapy in the past Acute kidney injury- Creatinine 1.81, with base 0.37 Secondary to hypovolemia associated with anemia and dehydration Repeat laboratories in a.m. after more aggressive fluid resuscitation Electrolyte disturbances/hyperkalemia/hypomagnesemia- No signs of ectopy on monitor in the ED Potassium 5.8 on admission, likely secondary to acute kidney injury Repeat in a.m. after having received 2 L normal saline and PRBCs Magnesium sulfate 1 g IV for magnesium of 1.5 Diabetes mellitus- Hold metformin ICU protocol History of Present Illness Chief Complaint: The patient is brought to the emergency department due to family concerns regarding worsening confusion. The patient himself is somewhat lethargic, but denies any current complaints. He was most recently at [facility] 3 days ago, for evaluation of known rectal mass, and was told that he was not a candidate for surgery at this time. Primary Care Provider: Gen Morgan The patient is a 54-year-old male with a past medical history including rectal mass, severe sepsis with septic shock requiring ICU admission from 03/08-03/13/2024, acute bilateral obstructive uropathy, hyponatremia, schizophrenia, anemia and history of lactic acidosis. The patient was brought to the emergency department due to family concerns regarding worsening confusion. The patient himself had no current complaints. Patient has a known history of rectal mass, for which he was seen at [facility] 3 days ago, and was told that he was not a candidate for surgical treatment at that time. His hemoglobin per family at that visit was 8.9, and upon arrival to the ED today, his hemoglobin is 5.8. He was also found to be hypotensive, with blood pressure 78/52, and was started on Levophed infusion at that time. He was also found to have acute kidney injury, with creatinine 1.81, and base of 0.37. He was referred to the [facility] hospitalist service for admission to the ICU Allergies Allergy/AdvReac Type Severity Reaction Status Date / Time aspirin Allergy Mild Unknown Unverified 03/07/24 22:24 Penicillins Allergy Mild Unknown Verified 03/07/24 22:24 cefepime Allergy Confusion Verified 01/19/25 18:53 Home Medications Medication Instructions Recorded Confirmed Type levothyroxine 50 mcg tablet 50 mcg PO DAILYBB 02/03/24 01/19/25 History metformin 500 mg tablet,extended 500 mg PO QAM 02/03/24 01/19/25 History release 24 hr risperidone 2 mg tablet 2 mg PO HS 02/03/24 01/19/25 History venlafaxine 75 mg capsule,extended 150 mg PO QAM 02/03/24 01/19/25 History release 24 hr (Effexor XR) apixaban 5 mg tablet (Eliquis) 5 mg PO BID 03/07/24 01/19/25 History folic acid 1 mg tablet 1 mg PO QAM 03/07/24 01/19/25 History thiamine HCl (vitamin B1) 100 mg 100 mg PO DAILY 03/07/24 01/19/25 History tablet ammonium lactate 12 % lotion 1 applic topical BID 01/19/25 01/19/25 History cephalexin 500 mg capsule 500 mg PO BID 01/19/25 01/19/25 History cholecalciferol (vitamin D3) 25 25 mcg PO DAILY 01/19/25 01/19/25 History mcg (1,000 unit) capsule (Vitamin D3) ciprofloxacin HCl 250 mg tablet 250 mg PO Q12H 01/19/25 01/19/25 History magnesium oxide 400 mg PO DAILY 01/19/25 01/19/25 History metoprolol succinate 25 mg 12.5 mg PO DAILY 01/19/25 01/19/25 History tablet,extended release 24 hr midodrine 10 mg tablet 10 mg PO TIDM 01/19/25 01/19/25 History nystatin 100,000 unit/gram topical 1 applic topical BID 01/19/25 01/19/25 History cream pantoprazole 40 mg tablet,delayed 40 mg PO DAILY 01/19/25 01/19/25 History release potassium chloride 20 mEq 20 meq PO DAILY 01/19/25 01/19/25 History tablet,extended release(part/cryst) Past Med/Surg History Problem List (Updated 04/13/24 @ 00:09 by Background Dadonna) Acute blood loss anemia Anemia (Acute) Rectal mass (Acute) Acute bilateral obstructive uropathy (Acute) High anion gap metabolic acidosis (Acute) Hematochezia (Acute) Hyponatremia Schizophrenia Hyperkalemia (Acute) Anemia (Acute) Rectal mass (Acute) Lactic acidosis (Acute) Severe sepsis with septic shock (Acute) Medical History Hypothyroid Social History Smoking Status: Unknown if ever smoked Do You Dip or Chew Tobacco: Yes; Hx Alcohol Use: No Hx Substance Use: No Preferred Language: [place] Communication Ability: Effective Skein Bander Required: No Beliefs That Will Affect Care: None Current Living Situation: Family Feels Safe at Home: Yes Assistive Devices: Walker and Other Review of Systems Review of Systems: The patient denies chest pain, palpitations, shortness of breath, dyspnea on exertion, cough, lower extremity swelling, sore throat, fevers, chills, sweats, nausea, vomiting, diarrhea , constipation, blood in urine or stool, dysuria, urinary frequency or urgency, lightheadedness, dizziness, headache, memory loss, loss of consciousness, rash, abnormal bruising or bleeding, imbalance, focal weakness, numbness or tingling in arms or legs, generalized arthralgias or myalgias, back or neck pain, or night sweats. The review of systems is otherwise negative other than for that already noted above, and at least 10 systems have been reviewed. Physical Exam Physical Exam: The patient is awake, lethargic, pale, lying in bed and in no acute distress. HEENT--PERRL, EOMI, mucous membranes and oropharynx dry. Neck--supple. No JVD. No bruits. Thyroid normal, trachea midline, no adenopathy. Heart--normal S1 and S2. No murmurs, rubs or gallops. Lungs--clear bilaterally, no respiratory distress, no accessory muscle use. Abdomen--normal bowel sounds and soft. Nontender. Nondistended Extremities--no cyanosis or clubbing. No edema. Dermatologic--normal skin turgor, normal color, no abnormal lymph nodes, no rash. Neurologic--cranial nerves II through XII grossly intact. Rheumatologic--normal range of motion. Psychiatric--flat affect. Results & Data Results & Data Vital Signs (Past 12 Hours) Vital Signs Temp Pulse Pulse Resp BP BP Pulse Ox 01/19/25 22:35 36.5 C 127 H 20 111/80 100 01/19/25 22:00 123 H 18 107/75 99 01/19/25 21:46 123 H 01/19/25 21:35 36.4 C L 122 H 19 98/68 L 100 01/19/25 20:35 36.7 C 123 H 20 108/64 100 01/19/25 20:05 36.7 C 118 H 18 103/66 99 01/19/25 20:00 115 H 16 103/66 100 01/19/25 19:50 37.2 C 118 H 18 95/49 L 100 01/19/25 19:22 36.5 C 118 H 18 103/67 99 01/19/25 19:05 115 H 20 92/62 L 100 01/19/25 18:45 114 H 25 H 93/60 L 100 01/19/25 18:45 93/60 L 01/19/25 18:40 89/50 L 01/19/25 18:35 88/55 L 01/19/25 18:35 112 H 28 H 83/54 L 100 01/19/25 18:26 113 H 28 H 100 01/19/25 18:25 116 H 32 H 80/48 L 100 01/19/25 18:19 100 01/19/25 18:09 123 H 36 H 78/52 L 100 01/19/25 17:55 124 H 01/19/25 17:38 95 01/19/25 17:31 36.3 C L 122 H 22 86/60 L 95 O2 Del Method 01/19/25 22:35 01/19/25 22:00 Room Air 01/19/25 21:46 01/19/25 21:35 01/19/25 20:35 01/19/25 20:05 01/19/25 20:00 Room Air 01/19/25 19:50 01/19/25 19:22 01/19/25 19:05 Room Air 01/19/25 18:45 01/19/25 18:45 01/19/25 18:40 01/19/25 18:35 01/19/25 18:35 01/19/25 18:26 01/19/25 18:25 01/19/25 18:19 Room Air 01/19/25 18:09 01/19/25 17:55 01/19/25 17:38 Room Air 01/19/25 17:31 Room Air Laboratory Results Laboratory Results WBC 22.03 K/ul (4.8-10.8) H 01/19/25 17:42 RBC 2.24 M/uL (4.70-6.10) L 01/19/25 17:42 Hgb 5.8 g/dl (14.0-18.0) L* 01/19/25 17:42 POC Hgb 5.4 g/dl (14.0-18.0) L* 01/19/25 17:53 Hct 18.7 % (42.0-52.0) L* 01/19/25 17:42 POC Hct 16 % (42-52) L* 01/19/25 17:53 MCV 83.5 fL (80.0-100.0) 01/19/25 17:42 MCH 25.9 pg (25.0-34.0) 01/19/25 17:42 MCHC 31.0 g/dL (32.0-36.0) L 01/19/25 17:42 RDW Std Deviation 46.6 fL (36.4-46.3) H 01/19/25 17:42 RDW Coeff of Dru 15.4 % (11.5-14.5) H 01/19/25 17:42 Plt Count 284 K/uL (130-400) 01/19/25 17: MPV 9.4 fL (9.4-12.4) 01/19/25 17:42 Immature Gran % (Auto) 1.9 % 01/19/25 17:42 Neut % (Auto) 90.6 % 01/19/25 17:42 Lymph % (Auto) 3.2 % 01/19/25 17:42 Cloud % (Auto) 4.0 % 01/19/25 17:42 Eos % (Auto) 0.2 % 01/19/25 17:42 Baso % (Auto) 0.1 % 01/19/25 17:42 Neut # (Auto) 19.95 K/uL (1.40-6.50) H 01/19/25 17:42 Lymph # (Auto) 0.70 K/uL (1.20-3.40) L 01/19/25 17:42 Cloud # (Auto) 0.89 K/uL (0.11-0.59) H 01/19/25 17:42 Eos # (Auto) 0.05 K/uL (0.00-0.50) 01/19/25 17:42 Baso # (Auto) 0.03 K/uL (0.00-0.20) 01/19/25 17:42 Immature Gran # (Auto) 0.41 K/uL (0.01-0.20) H 01/19/25 17:42 Polychromasia 1+ 01/19/25 17:42 PT 12.4 Seconds (9.0-12.0) H 01/19/25 17:42 INR 1.2 (0.9-1.1) H 01/19/25 17:42 APTT 35 Seconds (21-31) H 01/19/25 17:42 PTT Ratio 1.3 01/19/25 17:42 POC Sodium 123 mmol/L (135-144) L 01/19/25 17:53 Sodium 121 mmol/L (136-145) L 01/19/25 17:42 POC Potassium 6.0 mmol/L (3.3-5.0) H 01/19/25 17:53 Potassium 5.8 mmol/L (3.5-5.1) H 01/19/25 17:42 POC Chloride 101 mmol/L (101-112) 01/19/25 17:53 Chloride 98 mmol/L (98-107) 01/19/25 17:42 Carbon Dioxide 14 mmol/L (21-32) L 01/19/25 17:42 POC Total CO2 13 mmol/L (24-31) L 01/19/25 17:53 Anion Gap 9 (3-11) 01/19/25 17:42 POC Anion Gap 16.0 mmol/L (16-25) 01/19/25 17:53 POC BUN 24 mg/dl (7-18) H 01/19/25 17:53 BUN 29 mg/dl (6-23) H 01/19/25 17:42 Creatinine 1.81 mg/dl (0.6-1.4) H 01/19/25 17:42 POC Creatinine 2.1 mg/dl (0.6-1.3) H 01/19/25 17:53 Est Cr Clr Drug Dosing 44.1 ml/min 01/19/25 17:42 eGFR 43.88 01/19/25 17:42 BUN/Creatinine Ratio 16.0 (10-20) 01/19/25 17:42 Glucose 254 mg/dl (70-99(Fasting)) H 01/19/25 17:42 POC Glucose (other) 253 mg/dl (70-99) H 01/19/25 17:53 Lactate 3.8 mmol/L (0.4-2.0) H* 01/19/25 19:23 Calcium 8.9 mg/dl (8.6-10.3) 01/19/25 17:42 POC Ioniz Calcium Sina 1.32 mmol/l (1.12-1.32) 01/19/25 17:53 Magnesium 1.5 mg/dl (1.7-2.4) L 01/19/25 17:42 Total Bilirubin 0.3 mg/dl (0.2-1.0) 01/19/25 17:42 AST 13 U/L (13-39) 01/19/25 17:42 ALT 13 U/L (7-52) 01/19/25 17:42 Alkaline Phosphatase 113 U/L (34-104) H 01/19/25 17:42 Troponin I High Sens 9.8 pg/ml (0-20) 01/19/25 17:42 Total Protein 6.3 gm/dl (6.0-8.3) 01/19/25 17:42 Albumin 2.1 gm/dl (3.4-5.0) L 01/19/25 17:42 Globulin 4.2 gm/dl (2.5-4.0) H 01/19/25 17:42 Albumin/Globulin Ratio 0.5 (0.9-2) L 01/19/25 17:42 Procalcitonin 7.96 ng/ml (0-0.5) H 01/19/25 17:42 Urine Color Yellow 01/19/25 Unknown Urine Appearance Cloudy (Clear) A 01/19/25 Unknown Urine pH 5.5 (4.5-7.5) 01/19/25 Unknown Ur Specific [place] 1.013 (1.000-1.030) 01/19/25 Unknown Urine Protein 2+ (Negative) H 01/19/25 Unknown Urine Glucose (UA) Negative (Negative) 01/19/25 Unknown Urine Ketones Negative (Negative) 01/19/25 Unknown Urine Blood 2+ (Negative) H 01/19/25 Unknown Urine Nitrite Negative (Negative) 01/19/25 Unknown Urine Bilirubin Negative (Negative) 01/19/25 Unknown Urine Urobilinogen Negative (Negative) 01/19/25 Unknown Ur Leukocyte Esterase 2+ (Negative) H 01/19/25 Unknown Urine WBC (Auto) 21-50 /hpf (0-5) H 01/19/25 Unknown Urine RBC (Auto) >20 /hpf (0-2) H 01/19/25 Unknown U Hyaline Cast (Auto) 11-20 /lpf (0-2) H 01/19/25 Unknown U Epithel Cells (Auto) 0-2 /hpf (0-2) 01/19/25 Unknown Urine Bacteria (Auto) None Seen (None Seen) 01/19/25 Unknown Hyaline Casts Present /lpf (None Presnt) A 01/19/25 Unknown Granular Casts Present /lpf (None Prsent) A 01/19/25 Unknown Urine Comment 01/19/25 Unknown Blood Type B Positive 01/19/25 17:51 Antibody Screen NEGATIVE 01/19/25 17:51 Crossmatch See Detail 01/19/25 17:51 Impressions Chest X-Ray 01/19/25 17:38 Clinical History: Sepsis Technique: A frontal view of the chest was obtained Comparison is made to the prior examination today 03/09/2024 Findings: There is mild left lung base atelectasis. The heart size is within normal limits. No pleural effusion or pneumothorax is seen. There is suspected mild pulmonary edema No fracture is noted. No foreign body is seen Impression: Suspected mild pulmonary edema Electronically signed by Salvador Braun 01-19-2025 6:29 PM Abdomen/Pelvis CTA 01/19/25 20:30 Exam(s): CTA ABDOMEN + PELVIS With Contrast IV Amt: 118 cc opt i320 EXAM: CT Abdomen and Pelvis With Intravenous Contrast CLINICAL HISTORY: hypotension, hb 5.8, rectal mass. TECHNIQUE: Axial computed tomographic images of the abdomen and pelvis with intravenous contrast. CTDI is 17.1 mGy and DLP is 1048.04 mGy-cm. Automated exposure control was utilized for the study. A dose lowering technique was utilized adhering to the principles of ALARA. CONTRAST: Patient received 118 cc opt i320 of IV contrast COMPARISON: CTA abdomen and pelvis without contrast 03/07/2024 FINDINGS: VASCULATURE: Aorta: No acute findings. No abdominal aortic aneurysm. No dissection. Celiac trunk and mesenteric arteries: No acute findings. No occlusion or significant stenosis. Renal arteries: No acute findings. No occlusion or significant stenosis. Iliac arteries: No acute findings. No occlusion or significant stenosis. Lung bases: Minimal dependent subsegmental changes in the posterior lower lobes. No consolidation. ABDOMEN: Liver: Unremarkable. No mass. Gallbladder and bile ducts: Solitary subcentimeter gallstone. No gallbladder wall thickening. No ductal dilation. Pancreas: Similar calcifications involving the tail of the pancreas and at the pancreatic head consistent with chronic pancreatitis. However, there is new peripancreatic fat stranding and edema surrounding the pancreas. No ductal dilation. Spleen: Unremarkable. No splenomegaly. Adrenals: Unremarkable. No mass. Kidneys and ureters: Moderate bilateral hydroureteronephrosis with distention of the ureters extending to the pelvic mass. Stomach and bowel: The previously noted soft tissue rectal mass previously filling the pelvic outlet and extending below the pelvic floor has expanded with invasion of the obturator muscles, [id number]- left. There is also further extension inferiorly below the pelvic floor with involvement of the medial aspect of the gluteal muscles bilaterally. There is also extension to the skin surface with a pedunculated masslike component on the left now identified measuring 5.5 x 3.3 x 3.4 cm. There is heterogeneous enhancement of the mass but no obvious active arterial extravasation internally. No evidence for high-grade bowel obstruction. No evidence for intraluminal contrast extravasation within the stomach, small bowel or proximal colonic segments extending to the left lower quadrant colostomy, accounting for limitations with respiratory artifact. PELVIS: Appendix: No findings to suggest acute appendicitis. Bladder: The bladder is prominently displaced anteriorly with a Fox catheter in position. There is obliteration of the fat plane between the mass in the posterior aspect of the bladder with diffuse bladder wall prominence. Reproductive: Unremarkable as visualized. ABDOMEN and PELVIS: Intraperitoneal space: Unremarkable. No significant fluid collection. No free air. Bones/joints: No acute fracture. No dislocation. Soft tissues: Unremarkable. Lymph nodes: Unremarkable. No enlarged lymph nodes. IMPRESSION: 1. The previously noted soft tissue rectal mass previously filling the pelvic outlet and extending below the pelvic floor has expanded with invasion of the obturator muscles, [id number]-left. There is also further extension inferiorly below the pelvic floor with involvement of the medial aspect of the gluteal muscles bilaterally. There is also extension to the skin surface with a pedunculated masslike component on the left now identified measuring 5.5 x 3.3 x 3.4 cm. There is heterogeneous enhancement of the mass but no obvious active arterial extravasation internally. 2. No evidence for high-grade bowel obstruction. No evidence for intraluminal contrast extravasation within the stomach, small bowel or proximal colonic segments extending to the left lower quadrant colostomy, accounting for limitations with respiratory artifact. 3. Similar calcifications involving the tail of the pancreas and at the pancreatic head consistent with chronic pancreatitis. However, there is new peripancreatic fat stranding and edema surrounding the pancreas. The appearance is consistent with acute pancreatitis. 4. Moderate bilateral hydroureteronephrosis with distention of the ureters extending to the pelvic mass. A component of urinary retention is suspected from extrinsic compression by the mass. Electronically signed by: Tyree Hill MD 01/19/25 22:18 PM Code Status & VTE Plan Code Status Full code VTE Prophylaxis Plan VTE Prophylaxis will be ordered: Yes PG Care Time/CCT Total # of Minutes Spent Total Time Spent with Patient: Total time spent is greater than 50% in coordination of care (as documented) at patient's floor/unit and/or counseling patient: 50 minutes Coding Level of Care Code 81025 INT INP/OBS CARE 3/75MIN Diagnoses Severe sepsis with septic shock A41.9; R65.21 Rectal mass K62.89 Anemia D64.9 Anemia type: unspecified type Hyponatremia E87.1 Schizophrenia F20.9 Acute kidney injury N17.9 (3) Anemia Anemia type: unspecified type Qualified Code(s): D64.9 - Anemia, unspecified
[2025-01-20] MEDS: MAGNESIUM SULFATE / D5W 1 GM/100 ML BAG IV SCH (00:20)
[2025-01-20] MEDS: THIAMINE HCL 300 MG in SODIUM CHLORIDE 0.9% 50 ML IV STA (00:35)
[2025-01-20] MEDS: PIPERACILLIN/TAZOBACTAM 4.5 GM/100 ML BAG IV ONE (00:35)
[2025-01-20 00:48] LABS: Base Excess VBG -11.5 mEq/L; HCO3 VBG 14 mmol/L; Oxygen Saturation VBG < 60.0 %; PCO2 VBG 32 mmHg (38-50); PO2 VBG 30 mmHg; pH VBG 7.26 (7.36-7.41)
[2025-01-20] MEDS: PANTOprazole 40 MG/10 ML SYR IV ONE (00:59)
[2025-01-20] MEDS: MAGNESIUM SULFATE / D5W 1 GM/100 ML BAG IV ONE (01:02)
[2025-01-20 01:08] LABS: Anion Gap 9.0 (3-11); Blood Urea Nitrogen 26.0 mg/dl (6-23); Calcium 9.2 mg/dl (8.6-10.3); Carbon Dioxide 14.0 mmol/L (21-32); Chloride 102.0 mmol/L (98-107); Creatinine Clr Calc Pharmacy 47.8 ml/min; Glucose 222.0 mg/dl (70-99(Fasting)); Potassium 5.0 mmol/L (3.5-5.1); Sodium 125.0 mmol/L (136-145)
[2025-01-20] MEDS ORDERED: DEXTROSE 50% 50 ML SYRINGE IV PRN ×2 (01:18→01:31)
[2025-01-20] MEDS ORDERED: GLUCOSE 40% GEL 15 GM TUBE PO PRN ×2 (01:18→01:31)
[2025-01-20] MEDS ORDERED: GLUCOSE 10 TAB/TUBE PO PRN ×2 (01:18→01:31)
[2025-01-20] MEDS ORDERED: GLUCAGON FOR INJ 1 MG VIAL SQ PRN ×2 (01:18→01:31)
[2025-01-20] MEDS ORDERED: CARBOHYDRATES FOR HYPOGLYCEMIA PO PRN ×2 (01:18→01:31)
[2025-01-20] MEDS: INSULIN ASPART PER UNIT CHARGE SC SCH (01:58)
[2025-01-20] MEDS: PLASMA-LYTE A 1,000 ML IV SCH (02:38)
--- NOTE | 2025-01-20 02:38 | Communication Note ---
Date of Service: January 20, 2025 54 YOM admitted to ICU for vasopressor requirement in setting of shock with organ dysfunction. Imaging on admission with fat stranding around pancreas- wit h likely acute on chronic pancreatitis. With that he appeared to be tender on exam. Lipase level was sent and has just returned at 1641. His pressor requirements are declining with resuscitation and lactate and OTR DRIVER are improving. O: HR 140, BP: 13/63, RR 28, SPo2 100 on RA, T 37.4 - NA- 125, K: 5.0, Lactate 2.7 A/P 1.) Pancreatitis- acute on chronic- imaging, abd pain, elevated lipase - This may be the cause of his vasodilatory shock or definitely contributing to. - CT scan with 1 solitary gall stone- however no dilation reported or noticed on imaging. Also re-assuring that his LFTs, bili, are normal - Will add Plasmalyte for continued volume after blood, - Adjust his rate per his hemodynamics and urine output - Continue Zosyn as unable to exclude other intraabdominal cause- as PCT is 7.96 (expect mild elevation if just pancreatitis) - No fluid collection noted on CT scan- consider RUQUS - CTA did not reveal hemorrhagic pancreatitis - Send Trigs - Continue to trend calcium - Plausible remaining causes- cancer, Gastric ulcer, Metofrmin ? - Consider GI consultation if intervention need becomes evident. Maicol CRAVEN
[2025-01-20 04:47] LABS: Hematocrit (blood only) 28.6 % (42.0-52.0); Hemoglobin 9.3 g/dl (14.0-18.0); Mean Corpuscular Hemoglobin 26.5 pg (25.0-34.0); Mean Corpuscular Volume 81.5 fL (80.0-100.0); Platelet Count 277 K/uL (130-400); RDW Standard Deviation 44.1 fL (36.4-46.3); Red Blood Count 3.51 M/uL (4.70-6.10); White Blood Count 25.81 K/ul (4.8-10.8)
[2025-01-20 05:09] LABS: INR 1.1 (0.9-1.1); Partial Thromboplastin Time 32 Seconds (21-31); Prothrombin Time 11.9 Seconds (9.0-12.0)
[2025-01-20 05:10] LABS: Dohle Bodies 1+; Immature Granulocytes # (auto) 0.70 K/uL (0.01-0.20); Immature Granulocytes % (auto) 2.7 %; Polychromasia 1+
[2025-01-20 05:11] LABS: Alanine Aminotransferase 12.0 U/L (7-52); Albumin Globulin Ratio 0.4 (0.9-2); Alkaline Phosphatase 107.0 U/L (34-104); Anion Gap 9.0 (3-11); Bilirubin,Total 0.8 mg/dl (0.2-1.0); Blood Urea Nitrogen 25.0 mg/dl (6-23); Calcium 9.4 mg/dl (8.6-10.3); Carbon Dioxide 14.0 mmol/L (21-32); Chloride 104.0 mmol/L (98-107); Creatinine Clr Calc Pharmacy 51.1 ml/min; Globulin 4.5 gm/dl (2.5-4.0); Glucose 217.0 mg/dl (70-99(Fasting)); Magnesium 2.5 mg/dl (1.7-2.4); Potassium 4.8 mmol/L (3.5-5.1); Sodium 127.0 mmol/L (136-145); Total Protein 6.5 gm/dl (6.0-8.3)
[2025-01-20] MEDS: PIPERACILLIN/TAZOBACTAM 4.5 GM/100 ML BAG IV SCH (05:52)
--- NOTE | 2025-01-20 08:20 | Critical Care Progress Note ---
Date of Service January 20, 2025 Assessment & Plan (1) Anemia: (2) Rectal mass: (3) Acute bilateral obstructive uropathy: (4) Lactic acidosis: (5) Shock circulatory: (6) Metabolic acidosis: (7) Hyponatremia: (8) Hypomagnesemia: Plan Reason Critically Ill: 54 YOM with known rectal mass and diverting colostomy (2023), presents with shock unspecified with organ dysfunction. To ICU for continued resuscitation, and weaning of vasopressors as able. 24-hour events: Patient presented to the emergency room. He was resuscitated and IV pressors after 2 to 3 L of crystalloid. In the ICU, he remains tachycardic but pressors have been weaned off. CT imaging demonstrates probable acute on chronic pancreatitis and significant hydronephrosis. Recommendation Neuro - Metabolic Encephalopathy, Hx: Schizophrenia. Unclear baseline. Continue thiamine. Nonfocal exam currently. Cardiac -shock, possibly septic/distributive related to pancreatitis. May be under volume resuscitated. Will give additional 2 L of crystalloid. See comments regarding tonicity under renal below. Additional volume expansion with albumin. Respiratory - No acute needs GI - Rectal mass, diverting colostomy in place, HX: GERD. Patient has not been felt to be a candidate for surgical resection by report although records from [facility] are not available to review. Will try and obtain records from his oncology evaluation from [facility] but at this point in time given his progression, will obtain medical oncology and radiation oncology consultation. If he is not a surgical candidate, palliative XRT may be appropriate. Elevation of lipase with CT imaging showing findings concerning for acute on chronic pancreatitis. Patient's mental status is not reliable enough to allow for assessment of abdominal pain. Continue supportive care. Keep calcium repleted. RENAL/LYTES -acute renal failure with likely hypovolemic hyponatremia. Will give an additional 2 L of saline now. Additional volume expansion with albumin. Patient has non-anion gap metabolic acidosis. Bicarb will be administered and follow-up blood gas ordered for today. Continue serial BMPs given his hyperkalemia. Nephrology consultation should indices fail to improve. - Hydronephrosis secondary to obstructing colon mass. Urology consultation given bilateral hydronephrosis. Compression from the rectal mass. May require stent placement. Continue Fox catheter ENDO - glycemic control per protocol. Elevated lactate may be due to concomitant use of metformin with coexisting renal dysfunction. Avoid metformin for now. Patient's cortisol was abnormally low however he is now off pressors. If pressor requirements persist, would have a low threshold for consideration of stress dose steroids for relative adrenal insufficiency. HEME - Anemia unspecified, leukocytosis. May be due to pancreatitis. Eliquis being held current. Serial hemoglobin and continue transfuse to maintain above 8. GI consultation pending ID - Septic shock can't exclude, source urine vs. intraabdominal. Lactate improving LINES/IV ACCESS - PIV x3, Fox catheter Continue use of these lines DVT PROPHYLAXIS - SCDS - Hold on chemoprophylaxis as poss blood loss anemia DISPO: ICU Total of 47 minutes of critical care time spent in evaluation management coordination of care of this complex patient with multiple problems and organ system dysfunction/failure. Significant possibility of clinical decline and/or exists Addendum: Discussed with hospitalist who contacted the patient's sister who is apparently the point of contact. She reportedly changed his CODE STATUS to DNR/DNI. She requested only IV fluids and antibiotics. Discussed with anesthesia at bedside and indirectly with urology. Unclear if the patient's POA wants to pursue surgical intervention for hydronephrosis at this point in time. She appears to be transitioning more towards a comfort measure which given the extent of the tumor is certainly reasonable. As we are not pursuing additional pressor agents or escalation of care, the patient is appropriate to transfer out of the intensive care unit. Critical care services will sign off once he is transferred out of the ICU Admission and Anticipated Discharge Date Admission Date: January 19, 2025 Subjective Patient seen and examined. EMR reviewed. Discussed on multidisciplinary rounds as well as with overnight critical care RANGEL and bedside critical care nurse. Patient remains somewhat delirious and is unable to provide any history. He remains tachycardic with marginal blood pressures. Review of Systems Review of Systems: Unobtainable due to reduced consciousness Physical Exam Constitutional: + thin and + disheveled; no acute distre ss Neck: trachea midline, no thyromegaly Respiratory: normal respiratory effort, lungs clear to auscultation Cardiovascular: Rate/Rhythm: regular rate and + tachycardic Heart Sounds: normal S1 and normal S2; no murmur Extremities: no edema Gastrointestinal (Abdomen): normal bowel sounds, soft, nontender, no hepatosplenomegaly Musculoskeletal: Extremities: extremities normal to inspection Skin: no rashes, warm and dry Neurologic: Delirious Lymphatic: no cervical lymphadenopathy Results & Data Results & Data Vital Signs (Past 12 Hours) Vital Signs Temp Pulse Pulse Pulse Resp BP BP 01/20/25 06:00 146 H 27 H 01/20/25 06:00 37.2 C 112/68 01/20/25 05:45 144 H 30 H 01/20/25 05:45 110/62 01/20/25 05:45 110/62 01/20/25 05:45 110/62 01/20/25 05:45 110/62 01/20/25 05:45 110/62 01/20/25 05:33 141 H 32 H 01/20/25 05:30 111/66 01/20/25 05:16 149 H 33 H 96/62 L 01/20/25 05:15 96/62 L 01/20/25 05:12 149 H 35 H 01/20/25 05:06 151 H 29 H 01/20/25 05:00 96/65 L 01/20/25 04:45 101/53 L 01/20/25 04:45 101/53 L 01/20/25 04:30 149 H 35 H 01/20/25 04:30 105/66 01/20/25 04:30 105/66 01/20/25 04:15 107/60 01/20/25 04:15 107/60 01/20/25 04:15 149 H 27 H 01/20/25 04:06 151 H 27 H 01/20/25 04:00 11301/20/25 04:00 113/61 01/20/25 04:00 37.5 C 150 H 31 H 113/61 01/20/25 03:57 149 H 32 H 01/20/25 03:45 145 H 25 H 01/20/25 03:30 144 H 31 H 01/20/25 03:30 118/70 01/20/25 03:24 143 H 31 H 01/20/25 03:15 117/71 01/20/25 03:15 142 H 31 H 01/20/25 03:03 139 H 32 H 01/20/25 03:00 114/01/20/25 02:34 37.2 C 141 H 30 H 113/66 01/20/25 02:26 37.1 C 141 H 31 H 116/71 01/20/25 01:36 113/71 01/20/25 01:26 37.4 C 142 H 30 H 112/64 01/20/25 00:56 37 C 146 H 25 H 114/69 01/20/25 00:45 106/63 01/20/25 00:41 37 C 143 H 27 H 109/59 L 01/20/25 00:23 37.4 C 144 H 33 H 106/59 L 01/19/25 23:40 01/19/25 23:40 145 H 01/19/25 23:40 37.4 C 133 H 24 114/70 01/19/25 23:11 128 H 20 111/76 01/19/25 22:35 36.5 C 127 H 20 111/80 01/19/25 22:00 123 H 18 107/75 01/19/25 21:46 123 H 01/19/25 21:35 36.4 C L 122 H 19 98/68 L 01/19/25 20:35 36.7 C 123 H 20 108/64 BP Pulse Ox O2 Del Method 01/20/25 06:00 98 01/20/25 06:00 01/20/25 05:45 100 01/20/25 05:45 01/20/25 05:45 01/20/25 05:45 01/20/25 05:45 01/20/25 05:45 01/20/25 05:33 100 01/20/25 05:30 01/20/25 05:16 99 01/20/25 05:15 01/20/25 05:12 100 01/20/25 05:06 95 01/20/25 05:00 01/20/25 04:45 01/20/25 04:45 01/20/25 04:30 99 01/20/25 04:30 01/20/25 04:30 01/20/25 04:15 01/20/25 04:15 01/20/25 04:15 98 01/20/25 04:06 98 01/20/25 04:00 01/20/25 04:00 01/20/25 04:00 98 01/20/25 03:57 98 01/20/25 03:45 99 01/20/25 03:30 99 01/20/25 03:30 01/20/25 03:24 98 01/20/25 03:15 01/20/25 03:15 117/71 98 Room Air 01/20/25 03:03 98 01/20/25 03:00 01/20/25 02:34 99 01/20/25 02:26 100 01/20/25 01:36 01/20/25 01:26 100 01/20/25 00:56 100 01/20/25 00:45 01/20/25 00:41 100 01/20/25 00:23 01/19/25 23:40 Room Air 01/19/25 23:40 01/19/25 23:40 100 Room Air 01/19/25 23:11 99 01/19/25 22:35 100 01/19/25 22:00 99 Room Air 01/19/25 21:46 01/19/25 21:35 100 01/19/25 20:35 100 Critical Care Results & Data Vital Signs (Past 12 Hours) Vital Signs Temp Pulse Pulse Pulse Resp BP BP 01/20/25 06:00 146 H 27 H 01/20/25 06:00 37.2 C 112/68 01/20/25 05:45 144 H 30 H 01/20/25 05:45 110/62 01/20/25 05:45 110/62 01/20/25 05:45 110/62 01/20/25 05:45 110/62 01/20/25 05:45 110/62 01/20/25 05:33 141 H 32 H 01/20/25 05:30 111/66 01/20/25 05:16 149 H 33 H 96/62 L 01/20/25 05:15 96/62 L 01/20/25 05:12 149 H 35 H 01/20/25 05:06 151 H 29 H 01/20/25 05:00 96/65 L 01/20/25 04:45 101/53 L 01/20/25 04:45 101/53 L 01/20/25 04:30 149 H 35 H 01/20/25 04:30 105/66 01/20/25 04:30 105/66 01/20/25 04:15 107/60 01/20/25 04:15 107/60 01/20/25 04:15 149 H 27 H 01/20/25 04:06 151 H 27 H 01/20/25 04:00 113/61 01/20/25 04:00 113/61 01/20/25 04:00 37.5 C 150 H 31 H 113/61 01/20/25 03:57 149 H 32 H 01/20/25 03:45 145 H 25 H 01/20/25 03:30 144 H 31 H 01/20/25 03:30 118/70 01/20/25 03:24 143 H 31 H 01/20/25 03:15 117/71 01/20/25 03:15 142 H 31 H 01/20/25 03:03 139 H 32 H 01/20/25 03:00 114/71 01/20/25 02:34 37.2 C 141 H 30 H 113/66 01/20/25 02:26 37.1 C 141 H 31 H 116/71 01/20/25 01:36 113/71 01/20/25 01:26 37.4 C 142 H 30 H 112/64 01/20/25 00:56 37 C 146 H 25 H 114/69 01/20/25 00:45 106/63 01/20/25 00:41 37 C 143 H 27 H 109/59 L 01/20/25 00:23 37.4 C 144 H 33 H 106/59 L 01/19/25 23:40 01/19/25 23:40 145 H 01/19/25 23:40 37.4 C 133 H 24 114/70 01/19/25 23:11 128 H 20 111/76 01/19/25 22:35 36.5 C 127 H 20 111/80 01/19/25 22:00 123 H 18 107/75 01/19/25 21:46 123 H 01/19/25 21:35 36.4 C L 122 H 19 98/68 L 01/19/25 20:35 36.7 C 123 H 20 108/64 BP Pulse Ox O2 Del Method 01/20/25 06:00 98 01/20/25 06:00 01/20/25 05:45 100 01/20/25 05:45 01/20/25 05:45 01/20/25 05:45 01/20/25 05:45 01/20/25 05:45 01/20/25 05:33 100 01/20/25 05:30 01/20/25 05:16 99 01/20/25 05:15 01/20/25 05:12 100 01/20/25 05:06 95 01/20/25 05:00 01/20/25 04:45 01/20/25 04:45 01/20/25 04:30 99 01/20/25 04:30 01/20/25 04:30 01/20/25 04:15 01/20/25 04:15 01/20/25 04:15 98 01/20/25 04:06 98 01/20/25 04:00 01/20/25 04:00 01/20/25 04:00 98 01/20/25 03:57 98 01/20/25 03:45 99 01/20/25 03:30 99 01/20/25 03:30 01/20/25 03:24 98 01/20/25 03:15 01/20/25 03:15 117/71 98 Room Air 01/20/25 03:03 98 01/20/25 03:00 01/20/25 02:34 99 01/20/25 02:26 100 01/20/25 01:36 01/20/25 01:26 100 01/20/25 00:56 100 01/20/25 00:45 01/20/25 00:41 100 01/20/25 00:23 01/19/25 23:40 Room Air 01/19/25 23:40 01/19/25 23:40 100 Room Air 01/19/25 23:11 99 01/19/25 22:35 100 01/19/25 22:00 99 Room Air 01/19/25 21:46 01/19/25 21:35 100 01/19/25 20:35 100 Lab & Micro Results (Past 24 Hours) RBC 3.51 M/uL (4.70-6.10) L 01/20/25 WBC 25.81 K/ul (4.8-10.8) H 01/20/25 Hgb 8.2 g/dl (14.0-18.0) L 01/20/25 Hct 28.6 % (42.0-52.0) L 01/20/25 MCV 81.5 fL (80.0-100.0) 01/20/25 MCH 26.5 pg (25.0-34.0) 01/20/25 MCHC 32.5 g/dL (32.0-36.0) 01/20/25 RDW Standard Deviation 44.1 fL (36.4-46.3) 01/20/25 RDW Coefficient of Variation 15.0 % (11.5-14.5) H 01/20/25 Plt Count 277 K/uL (130-400) 01/20/25 MPV 8.6 fL (9.4-12.4) L 01/20/25 Neutrophils (%) (Auto) 91.3 % 01/20/25 Lymphocytes (%) (Auto) 1.2 % 01/20/25 Monocytes # (Auto) 1.14 K/uL (0.11-0.59) H 01/20/25 Eosinophils # (Auto) 0.05 K/uL (0.00-0.50) 01/20/25 Immature Granulocyte % (Auto) 2.7 % 01/20/25 Neutrophils # (Auto) 23.56 K/uL (1.40-6.50) H 01/20/25 Lymphocytes # (Auto) 0.30 K/uL (1.20-3.40) L 01/20/25 Monocytes # (Auto) 1.14 K/uL (0.11-0.59) H 01/20/25 Eosinophils # (Auto) 0.05 K/uL (0.00-0.50) 01/20/25 Basophils # (Auto) 0.06 K/uL (0.00-0.20) 01/20/25 Immature Granulocyte # (Auto) 0.70 K/uL (0.01-0.20) H 01/20 Polychromasia 1+ 01/20/25 Echinocytes 1+ 01/20/25 Dohle Bodies 1+ 01/20/25 Na 133 mmol/L (136-145) L 01/20/25 K 4.2 mmol/L (3.5-5.1) 01/20/25 Cl 108 mmol/L (98-107) H 01/20/25 CO2 14 mmol/L (21-32) L 01/20/25 Anion Gap 11 (3-11) 01/20/25 BUN 22 mg/dl (6-23) 01/20/25 Creatinine 1.38 mg/dl (0.6-1.4) 01/20/25 BUN/Creatinine Ratio 15.9 (10-20) 01/20/25 Glu 168 mg/dl (70-99(Fasting)) H 01/20/25 Ca 8.8 mg/dl (8.6-10.3) 01/20/25 Total Bilirubin 0.8 mg/dl (0.2-1.0) 01/20/25 AST 12 U/L (13-39) L 01/20/25 ALT 12 U/L (7-52) 01/20/25 Alkaline Phosphatase 107 U/L (34-104) H 01/20/25 TP 6.5 gm/dl (6.0-8.3) 01/20/25 Albumin 2.0 gm/dl (3.4-5.0) L 01/20/25 Globulin 4.5 gm/dl (2.5-4.0) H 01/20/25 Albumin/Globulin Ratio 0.4 (0.9-2) L 01/20/25 Mg 2.5 mg/dl (1.7-2.4) H 01/20/25 04:16 Calcium Level 8.8 mg/dl (8.6-10.3) 01/20/25 09:44 Prothromb Time International Ratio 1.1 (0.9-1.1) 01/20/25 04:1 6 Venous Blood pH 7.31 (7.36-7.41) L 01/20/25 09:44 Venous Blood Partial Pressure CO2 30 mmHg (38-50) L 01/20/25 09 :44 Venous Blood Partial Pressure O2 45 mmHg 01/20/25 09:44 Venous Blood HCO3 15 mmol/L 01/20/25 09:44 Venous Blood Base Excess -9.8 mEq/L 01/20/25 09:44 Venous Blood Oxygen Saturation 76.2 % 01/20/25 09:44 Diagnostic Findings (Past 24 Hours) Chest X-Ray 01/19/25 17:38 Clinical History: Sepsis Technique: A frontal view of the chest was obtained Comparison is made to the prior examination today 03/09/2024 Findings: There is mild left lung base atelectasis. The heart size is within normal limits. No pleural effusion or pneumothorax is seen. There is suspected mild pulmonary edema No fracture is noted. No foreign body is seen Impression: Suspected mild pulmonary edema Electronically signed by Salvador Braun 01-19-2025 6:29 PM Abdomen/Pelvis CTA 01/19/25 20:30 Exam(s): CTA ABDOMEN + PELVIS With Contrast IV Amt: 118 cc opt i320 EXAM: CT Abdomen and Pelvis With Intravenous Contrast CLINICAL HISTORY: hypotension, hb 5.8, rectal mass. TECHNIQUE: Axial computed tomographic images of the abdomen and pelvis with intravenous contrast. CTDI is 17.1 mGy and DLP is 1048.04 mGy-cm. Automated exposure control was utilized for the study. A dose lowering technique was utilized adhering to the principles of ALARA. CONTRAST: Patient received 118 cc opt i320 of IV contrast COMPARISON: CTA abdomen and pelvis without contrast 03/07/2024 FINDINGS: VASCULATURE: Aorta: No acute findings. No abdominal aortic aneurysm. No dissection. Celiac trunk and mesenteric arteries: No acute findings. No occlusion or significant stenosis. Renal arteries: No acute findings. No occlusion or significant stenosis. Iliac arteries: No acute findings. No occlusion or significant stenosis. Lung bases: Minimal dependent subsegmental changes in the posterior lower lobes. No consolidation. ABDOMEN: Liver: Unremarkable. No mass. Gallbladder and bile ducts: Solitary subcentimeter gallstone. No gallbladder wall thickening. No ductal dilation. Pancreas: Similar calcifications involving the tail of the pancreas and at the pancreatic head consistent with chronic pancreatitis. However, there is new peripancreatic fat stranding and edema surrounding the pancreas. No ductal dilation. Spleen: Unremarkable. No splenomegaly. Adrenals: Unremarkable. No mass. Kidneys and ureters: Moderate bilateral hydroureteronephrosis with distention of the ureters extending to the pelvic mass. Stomach and bowel: The previously noted soft tissue rectal mass previously filling the pelvic outlet and extending below the pelvic floor has expanded with invasion of the obturator muscles, [id number] left. There is also further extension inferiorly below the pelvic floor with involvement of the medial aspect of the gluteal muscles bilaterally. There is also extension to the skin surface with a pedunculated masslike component on the left now identified measuring 5.5 x 3.3 x 3.4 cm. There is heterogeneous enhancement of the mass but no obvious active arterial extravasation internally. No evidence for high-grade bowel obstruction. No evidence for intraluminal contrast extravasation within the stomach, small bowel or proximal colonic segments extending to the left lower quadrant colostomy, accounting for limitations with respiratory artifact. PELVIS: Appendix: No findings to suggest acute appendicitis. Bladder: The bladder is prominently displaced anteriorly with a Fox catheter in position. There is obliteration of the fat plane between the mass in the posterior aspect of the bladder with diffuse bladder wall prominence. Reproductive: Unremarkable as visualized. ABDOMEN and PELVIS: Intraperitoneal space: Unremarkable. No significant fluid collection. No free air. Bones/joints: No acute fracture. No dislocation. Soft tissues: Unremarkable. Lymph nodes: Unremarkable. No enlarged lymph nodes. IMPRESSION: 1. The previously noted soft tissue rectal mass previously filling the pelvic outlet and extending below the pelvic floor has expanded with invasion of the obturator muscles, [id number]-left. There is also further extension inferiorly below the pelvic floor with involvement of the medial aspect of the gluteal muscles bilaterally. There is also extension to the skin surface with a pedunculated masslike component on the left now identified measuring 5.5 x 3.3 x 3.4 cm. There is heterogeneous enhancement of the mass but no obvious active arterial extravasation internally. 2. No evidence for high-grade bowel obstruction. No evidence for intraluminal contrast extravasation within the stomach, small bowel or proximal colonic segments extending to the left lower quadrant colostomy, accounting for limitations with respiratory artifact. 3. Similar calcifications involving the tail of the pancreas and at the pancreatic head consistent with chronic pancreatitis. However, there is new peripancreatic fat stranding and edema surrounding the pancreas. The appearance is consistent with acute pancreatitis. 4. Moderate bilateral hydroureteronephrosis with distention of the ureters extending to the pelvic mass. A component of urinary retention is suspected from extrinsic compression by the mass. Electronically signed by: Tyree Hill MD 01/19/25 22:18 PM I & O Totals 24 Hours 01/19/25 01/20/25 01/21/25 06:59 06:59 06:59 Intake Total 3445.353 / 3445.353 Output Total 1730 / 1730 Balance 1715.353 / 1715.353 Cumulative 01/19/25 17:14 thru 01/20/25 06:37 Intake Total 3445.353 Output Total 1730 Balance 1715.353 RT Ventilator Mngmt (Last Documented) Ventilator Ordered Settings Respiratory Rate 27 01/20/25 06:00 Ventilator - PT Measurements Respiratory Rate 27 Coding Level of Care Code 68888 CRITICAL CARE 1ST 30-74M Diagnoses Anemia D64.9 Anemia type: unspecified type Rectal mass K62.89 Acute bilateral obstructive uropathy N13.9 Lactic acidosis E87.20 Shock circulatory R57.9 Metabolic acidosis E87.20 Hyponatremia E87.1 Hypomagnesemia E83.42 (1) Anemia Anemia type: unspecified type Qualified Code(s): D64.9 - Anemia, unspecified
[2025-01-20] MEDS: SODIUM CHLORIDE 0.9% 1,000 ML IV SCH (08:30)
[2025-01-20] MEDS: SODIUM BICARB 8.4% INJ 50 MEQ/50 ML SYR IV STA (08:30)
[2025-01-20] MEDS: ALBUMIN 25% 25 GM/100 ML VIAL IV SCH (08:31)
[2025-01-20 08:38] LABS: A calco-baum cmplx NotReported Not Detected (NotDetected); Bact fragilis Not Reported Not Detected (NotDetected); Blood Culture Id Panel See PCR Comment (NotDetected); C auris Not Reported Not Detected (NotDetected); CTX-M Resistant Gene Not Detected (NotDetected); Calbicans Not Reported Not Detected (NotDetected); Candida glabrata Not Reported Not Detected (NotDetected); Candida krusei Not Reported Not Detected (NotDetected); Cneoformans/gatti Not Reported Not Detected (NotDetected); Cparapsilosis Not Reported Not Detected (NotDetected); Ctropicalis Not Reported Not Detected (NotDetected); E cloacae compx Not Reported Not Detected (NotDetected); Efaecalis Not Reported Not Detected (NotDetected); Efaecium Not Reported Not Detected (NotDetected); Enterobacterales DETECTED (NotDetected); Enterobacterales Not Reported DETECTED (NotDetected); Escherichia coli Not Reported Not Detected (NotDetected); H influenzae Not Reported Not Detected (NotDetected); IMP Resistant Gene Not Detected (NotDetected); K aerogenes Not Reported Not Detected (NotDetected); KPC Resistant Gene Not Detected (NotDetected); Koxytoca Not Reported Not Detected (NotDetected); Kpneumoniae grp Not Reported DETECTED (NotDetected); Lmonocyt Not Reported Not Detected (NotDetected); N meningitidis Not Reported Not Detected (NotDetected); NDM Resistant Gene Not Detected (NotDetected); OXA 48 Like Resistant Gene Not Detected (NotDetected); P aeruginosa Not Reported Not Detected (NotDetected); Proteus spp Not Reported Not Detected (NotDetected); Salmonella spp Not Reported Not Detected (NotDetected); Staph lugdunensis Not Reported Not Detected (NotDetected); Staph spp. Not Reported Not Detected (NotDetected); Staphaureus Not Reported Not Detected (NotDetected); Staphepi Not Reported Not Detected (NotDetected); Stenmaltophilia Not Reported Not Detected (NotDetected); Strep agal(GrpB) Not Reported Not Detected (NotDetected); Strep pneum Not Reported Not Detected (NotDetected); Strep pyog (GrpA) Not Reported Not Detected (NotDetected); Strep spp Not Reported Not Detected (NotDetected); VIM Resistant Gene Not Detected (NotDetected); mcr-1 Colistin Resistant Gene Not Detected (NotDetected)
[2025-01-20 08:44] LABS: Klebsiella pneumoniae group DETECTED (NotDetected)
[2025-01-20] MEDS: MIDODRINE HCL 10 MG TAB PO SCH (08:45)
[2025-01-20] MEDS ORDERED: THIAMINE HCL 100 MG in SODIUM CHLORIDE 0.9% 50 ML IV SCH (09:00)
[2025-01-20] MEDS: VANCOMYCIN HCL 1,250 MG in SODIUM CHLORIDE 0.9% 250 ML IV SCH (09:38)
[2025-01-20] MEDS: THIAMINE HCL 100 MG in SYRINGE 9 ML IV SCH (09:43)
[2025-01-20] MEDS: PANTOprazole 40 MG/10 ML SYR IV SCH (09:43)
[2025-01-20 09:54] LABS: Base Excess VBG -9.8 mEq/L; HCO3 VBG 15 mmol/L; Oxygen Saturation VBG 76.2 %; PCO2 VBG 30 mmHg (38-50); PO2 VBG 45 mmHg; pH VBG 7.31 (7.36-7.41)
--- NOTE | 2025-01-20 09:58 | Urology Consultation ---
Date of Consultation January 20, 2025 Assessment & Plan (1) Acute bilateral obstructive uropathy: Dr Grant contacted and CT scan reviewed by him. Patient has bilateral hydroureteronephrosis due to this massive rectal mass. vital signs reviewed: he has been tachycardic and was hypotensive on admission. Blood pressure has improved Afebrile. wbc 25.81, hgb 5.4 yesterday, still pending today. Cr 2.1 yesterday Urine 2+ blood, neg nitrites, 2+ LE, wbc 21-50, cultures pending. Blood culture + for gram negative bacilli Options would be to proceed with cystoscopy and bilateral ureteral stent placement vs nephrostomy tubes. There is the possibility that due to the size of the mass stents will not be p ossible, or that even with stents he will need neph tubes. Will tentatively add him on today for cysto and stent placement. (2) Rectal mass: (3) Shock circulatory: (4) Hyponatremia: (5) High anion gap metabolic acidosis: (6) Hyponatremia: (7) Schizophrenia: (8) Severe sepsis with septic shock: (9) Lactic acidosis: Plan Attending note: Patient independently assessed, examined, interviewed, and evaluated. Patient acutely and critically ill. Patient has sepsis of unknown source. Has known rectal cancer which has become severely obstructing in the pelvis. Had previously had diverting colostomy. Appears to have invasion of the pelvic muscles including invasion of the gluteal muscle. Patient has now worsening obstructive issues. Had catheter in place and is still generating urine however based on CT imaging done for sepsis workup patient's ureters appeared to be severely obstructed. Did not have signs of severe perinephric stranding or other signs that would be concerning for possible pyelonephritis however at this point unknown source of infection. Patient's white count was severely elevated. Otherwise agree with note as above. Patient's vitals and labs were all reviewed. White count 25.81, creatinine 1.38, hemoglobin was acutely low yesterday down to 5.4 however had been now increased to 8.4. Patient's pulse is still significantly elevated at 149. Respirations are 27. Blood pressure is low at 112/68 oxygen saturation currently 98% on room air. No current fever with temperature 37.2. Pertinent values in the HPI and plan section. Imaging was reviewed interpreted by myself. Agree with read. Extremely large mass involving majority of the pelvis appearing to displace the bladder significantly with concerns for possible early development of invasion into the bladder. Does have signs of significant invasion of tumor into the pelvic floor muscles and gluteal muscle. Additionally has severe hydronephrosis possibly chronic John obstructed however likely significantly worsening with increasing size of pelvic mass. Vitals were reviewed. Discussed findings extensively with patient and family. Patient is acutely ill likely needs urgent stent placement. Thorough discussion with the critical care team specifically about intentions and options. Did discuss possible issues with stent placement. Discussed risks related to anesthesia. Did discuss there is a possibility that if not infected the stents may not drastically improve the patient's condition. Additionally if stents are unable to be placed likely would need to be transferred for nephrostomy tube. Based on the severe large mass and the increasing size neph tubes may unfortunately be inevitable in order to maintain renal function. Even if stents are able to be placed there is a chance that they may not function well due to the significant displacement of the bladder. Will likely need to continue with catheterization afterwards in order to continue to drain the bladder. Obstructive issues of the bladder neck may become more severe as the mass increases. Reviewed with critical care team as well as consulting physicians/team. Patient's complicated medical and surgical history was reviewed and summarized above. Patient's surgical, medical, social, and family history were all reviewed with pertinent values as above. Discussed patient's current diagnosis as well as concerns and issues. Reviewed different options moving forward. Discussed potential risks and benefits as well as possible options and concerns. Reviewed potential surgical options and interventions. Discussed potential issues and concerns related to intervention. Risk and benefits were discussed extensively with patient and any available family. Discussed potential risks related to anesthesia. Discussed risks of bleeding infection and injury. Risks and benefits discussed at length for procedure. These include bleeding, infection, injury to surrounding tissues or organs, and risks associated with anesthesia. Patient states understanding and agrees to proceed. Will sign consent and proceed. Plan for urgent/emergent procedure for cystoscopy with possible bilateral stent placement History of Present Illness Attending Physician: Nate Saini MD, PhD History of Present Illness 54 year old critically ill patient admitted yesterday to the ICU with metabolic encephalopathy, acute kidney failure, h/o rectal mass and colostomy, pancreatitis, and septick shock. On imaging found to have bilateral hydroureteronephrosis due to compression from the rectal mass. He is delirious and not able to provide history. He does have 2 sisters but not present at this time. Patient critically ill with large tumor involving a majority of the pelvis causing severe obstruction. Patient has known rectal cancer. Had unresectable disease with diverting colostomy. Patient developed severe signs of sepsis with unknown source. Had CT imaging with possible findings of pancreatitis. Conversation with patient is limited. Had been having increasing confusion. Does have baseline cognitive issues. Patient became more delirious throughout the day. Was admitted for critical management. Allergies Allergy/AdvReac Type Severity Reaction Status Date / Time aspirin Allergy Mild Unknown Unverified 03/07/24 22:24 Penicillins Allergy Mild Unknown Verified 03/07/24 22:24 cefepime Allergy Confusion Verified 01/19/25 18:53 Home Medications Medication Instructions Recorded Confirmed Type levothyroxine 50 mcg tablet 50 mcg PO DAILYBB 02/03/24 01/19/25 History metformin 500 mg tablet,extended 500 mg PO QAM 02/03/24 01/19/25 History release 24 hr risperidone 2 mg tablet 2 mg PO HS 02/03/24 01/19/25 History venlafaxine 75 mg capsule,extended 150 mg PO QAM 02/03/24 01/19/25 History release 24 hr (Effexor XR) apixaban 5 mg tablet (Eliquis) 5 mg PO BID 03/07/24 01/19/25 History folic acid 1 mg tablet 1 mg PO QAM 03/07/24 01/19/25 History thiamine HCl (vitamin B1) 100 mg 100 mg PO DAILY 03/07/24 01/19/25 History tablet ammonium lactate 12 % lotion 1 applic topical BID 01/19/25 01/19/25 History cephalexin 500 mg capsule 500 mg PO BID 01/19/25 01/19/25 History cholecalciferol (vitamin D3) 25 25 mcg PO DAILY 01/19/25 01/19/25 History mcg (1,000 unit) capsule (Vitamin D3) ciprofloxacin HCl 250 mg tablet 250 mg PO Q12H 01/19/25 01/19/25 History magnesium oxide 400 mg PO DAILY 01/19/25 01/19/25 History metoprolol succinate 25 mg 12.5 mg PO DAILY 01/19/25 01/19/25 History tablet,extended release 24 hr midodrine 10 mg tablet 10 mg PO TIDM 01/19/25 01/19/25 History nystatin 100,000 unit/gram topical 1 applic topical BID 01/19/25 01/19/25 History cream pantoprazole 40 mg tablet,delayed 40 mg PO DAILY 01/19/25 01/19/25 History release potassium chloride 20 mEq 20 meq PO DAILY 01/19/25 01/19/25 History tablet,extended release(part/cryst) Patient History Medical History Hypokalemia Acute kidney injury Acute hyponatremia Sepsis Hypothyroid Social History Smoking Status: Never smoker Second Hand Exposure: No; Do You Dip or Chew Tobacco: No; Tobacco Cessation Education Requested by Patient: No Hx Alcohol Use: No Hx Substance Use: No Preferred Language: Slovak Communication Ability: Effective Trust Clerk Required: No Beliefs That Will Affect Care: Spiritual Current Living Situation: Family Other Information That Helps Us Care for You: No Feels Safe at Home: Yes Safety Concerns: Feels Safe At This Time Assistive Devices: Glasses Review of Systems Review of Systems: All systems reviewed & are unremarkable except as noted in HPI & below Limited due to patient illness Physical Exam Physical Exam: General: Acutely ill. Undergoing critical care management for acute severe infection HEENT: Normocephalic Atraumatic. Inspection normal. Cranial Nerves 2-12 Grossly intact. Nares are clear. Neck is supple. Normal inspection of face. Normal inspection of neck. Neurologic: No deficits on inspection. Baseline for motor function and sensory. Psychologic: Anxious, acute delirium secondary to illness Respiratory: Mild labored. No use of accessory muscles. No severe dyspnea. Cardiovascular: tachycardia Skin: [place] and Dry. No rashes or visible lesions. Febrile Extremities: Moving without issues. No motor deficits on inspection Lymphatics: Mild edema Abdomen: Mildly distended. No rebound or guarding. Mild suprapubic/flank tenderness Genitourinary: Exam is limited as patient is delirious. He does open his eyes for me but no other response. Fox catheter in place and draining clear yellow urine. Results & Data Vital Signs (Past 12 Hours) Vital Signs Temp Pulse Pulse Pulse Resp BP BP 01/20/25 06:00 146 H 27 H 01/20/25 06:00 37.2 C 112/68 01/20/25 05:45 144 H 30 H 01/20/25 05:45 110/62 01/20/25 05:45 110/62 01/20/25 05:45 110/62 01/20/25 05:45 110/62 01/20/25 05:45 110/62 01/20/25 05:33 141 H 32 H 01/20/25 05:30 111/66 01/20/25 05:16 149 H 33 H 96/62 L 01/20/25 05:15 96/62 L 01/20/25 05:12 149 H 35 H 01/20/25 05:06 151 H 29 H 01/20/25 05:00 96/65 L 01/20/25 04:45 101/53 L 01/20/25 04:45 101/53 L 01/20/25 04:30 149 H 35 H 01/20/25 04:30 105/66 01/20/25 04:30 105/66 01/20/25 04:15 107/60 01/20/25 04:15 107/60 01/20/25 04:15 149 H 27 H 01/20/25 04:06 151 H 27 H 01/20/25 04:00 113/61 01/20/25 04:00 113/61 01/20/25 04:00 37.5 C 150 H 31 H 113/61 01/20/25 03:57 149 H 32 H 01/20/25 03:45 145 H 25 H 01/20/25 03:30 144 H 31 H 01/20/25 03:30 118/70 01/20/25 03:24 143 H 31 H 01/20/25 03:15 117/71 01/20/25 03:15 142 H 31 H 01/20/25 03:03 139 H 32 H 01/20/25 03:00 114/71 01/20/25 02:34 37.2 C 141 H 30 H 113/66 01/20/25 02:26 37.1 C 141 H 31 H 116/71 01/20/25 01:36 113/71 01/20/25 01:26 37.4 C 142 H 30 H 112/64 01/20/25 00:56 37 C 146 H 25 H 114/69 01/20/25 00:45 106/63 01/20/25 00:41 37 C 143 H 27 H 109/59 L 01/20/25 00:23 37.4 C 144 H 33 H 106/59 L 01/19/25 23:40 01/19/25 23:40 145 H 01/19/25 23:40 37.4 C 133 H 24 114/70 01/19/25 23:11 128 H 20 111/76 01/19/25 22:35 36.5 C 127 H 20 111/80 01/19/25 22:00 123 H 18 107/75 BP Pulse Ox O2 Del Method 01/20/25 06:00 98 01/20/25 06:00 01/20/25 05:45 100 01/20/25 05:45 01/20/25 05:45 01/20/25 05:45 01/20/25 05:45 01/20/25 05:45 01/20/25 05:33 100 01/20/25 05:30 01/20/25 05:16 99 01/20/25 05:15 01/20/25 05:12 100 01/20/25 05:06 95 01/20/25 05:00 01/20/25 04:45 01/20/25 04:45 01/20/25 04:30 99 01/20/25 04:30 01/20/25 04:30 01/20/25 04:15 01/20/25 04:15 01/20/25 04:15 98 01/20/25 04:06 98 01/20/25 04:00 01/20/25 04:00 01/20/25 04:00 98 01/20/25 03:57 98 01/20/25 03:45 99 01/20/25 03:30 99 01/20/25 03:30 01/20/25 03:24 98 01/20/25 03:15 01/20/25 03:15 117/71 98 Room Air 01/20/25 03:03 98 01/20/25 03:00 01/20/25 02:34 99 01/20/25 02:26 100 01/20/25 01:36 01/20/25 01:26 100 01/20/25 00:56 100 01/20/25 00:45 01/20/25 00:41 100 01/20/25 00:23 01/19/25 23:40 Room Air 01/19/25 23:40 01/19/25 23:40 100 Room Air 01/19/25 23:11 99 01/19/25 22:35 100 01/19/25 22:00 99 Room Air PG Care Time/CCT Total # of Minutes Spent Total Time Spent with Patient: Total time spent is greater than 50% in coordination of care (as documented) at patient's floor/unit and/or counseling patient: Coding Level of Care Code 26658 INT INP/OBS CARE 2/55MIN Diagnoses Acute bilateral obstructive uropathy N13.9 Rectal mass K62.89 Shock circulatory R57.9 Hyponatremia E87.1 High anion gap metabolic acidosis E87.29 Schizophrenia F20.9 Severe sepsis with septic shock A41.9; R65.21 Lactic acidosis E87.20
[2025-01-20 10:08] LABS: A calco-baum cmplx NotReported Not Detected (NotDetected); Bact fragilis Not Reported Not Detected (NotDetected); Blood Culture Id Panel See PCR Comment (NotDetected); C auris Not Reported Not Detected (NotDetected); Calbicans Not Reported Not Detected (NotDetected); Candida glabrata Not Reported Not Detected (NotDetected); Candida krusei Not Reported Not Detected (NotDetected); Cneoformans/gatti Not Reported Not Detected (NotDetected); Cparapsilosis Not Reported Not Detected (NotDetected); Ctropicalis Not Reported Not Detected (NotDetected); E cloacae compx Not Reported Not Detected (NotDetected); Efaecalis Not Reported Not Detected (NotDetected); Efaecium Not Reported DETECTED (NotDetected); Enterobacterales Not Reported Not Detected (NotDetected); Escherichia coli Not Reported Not Detected (NotDetected); H influenzae Not Reported Not Detected (NotDetected); K aerogenes Not Reported Not Detected (NotDetected); Koxytoca Not Reported Not Detected (NotDetected); Kpneumoniae grp Not Reported Not Detected (NotDetected); Lmonocyt Not Reported Not Detected (NotDetected); N meningitidis Not Reported Not Detected (NotDetected); P aeruginosa Not Reported Not Detected (NotDetected); Proteus spp Not Reported Not Detected (NotDetected); Salmonella spp Not Reported Not Detected (NotDetected); Staph lugdunensis Not Reported Not Detected (NotDetected); Staph spp. Not Reported Not Detected (NotDetected); Staphaureus Not Reported Not Detected (NotDetected); Staphepi Not Reported Not Detected (NotDetected); Stenmaltophilia Not Reported Not Detected (NotDetected); Strep agal(GrpB) Not Reported Not Detected (NotDetected); Strep pneum Not Reported Not Detected (NotDetected); Strep pyog (GrpA) Not Reported Not Detected (NotDetected); Strep spp Not Reported Not Detected (NotDetected); VanAB Resistant Gene VRE Not Detected (NotDetected)
[2025-01-20 10:14] LABS: Anion Gap 11.0 (3-11); Blood Urea Nitrogen 22.0 mg/dl (6-23); Calcium 8.8 mg/dl (8.6-10.3); Carbon Dioxide 14.0 mmol/L (21-32); Chloride 108.0 mmol/L (98-107); Creatinine Clr Calc Pharmacy 55.5 ml/min; Glucose 168.0 mg/dl (70-99(Fasting)); Potassium 4.2 mmol/L (3.5-5.1); Sodium 133.0 mmol/L (136-145)
[2025-01-20 10:15] LABS: Enterococcus faecium DETECTED (NotDetected)
--- NOTE | 2025-01-20 10:58 | Pharmacy Report ---
Pharmacy PK ABX Note - Date of Service January 20, 2025 - Assessment and Plan Assessment 54 year old M receiving Vancomycin and Zosyn for treatment of empiric sepsis. * Day #1 of antimicrobial therapy. 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 * White count worsened today, 26k. Lactate improved but still elevated. Procalcitonin improved but elevated as well. Afebrile. * Significant BUDDY upon admit, SCr 1.81 mg/dL. This has improved with most recent BMP showing a SCr of 1.38 mg/dL. Did receive 25 mg/kg loading dose in the ED. Gave a one time dose of 1250 mg this morning. * Blood cultures are growing Klebsiella pneumoniae (not ESBL) as well as Enterococcus faecium (not VRE). Given severity of illness, would prefer to be more aggressive with this patient. Urine output has been excellent today. Suspect SCr to continue to improve and be < 1 mg/dL by tomorrow morning. Therefore, will empirically start 1250 mg IV every 12 hours despite predicted AUC/HIEU at current state to be > 600. Suspect AUC will be in goal range tomorrow as long as SCr continues to improve. Will order a random level with AM labs. Plan Vancomycin * Loading dose: 1750 mg IV x 1 * Maintenance dose: 1250 mg IV every 12 hours * See above - in current state, regimen predicted to achieve AUC/HIEU > 600. However, expect this to be at goal tomorrow morning as SCr continues to improve. * Random level ordered for: 01/21/25 Zosyn * 4.5 g IV every 8 hours Pharmacy will continue to follow and will adjust dose/frequency as necessary. Thank you. Pharmacy has transitioned to AUC monitoring for vancomycin. AUC/HIEU is the preferred PK/PD target and is associated with decreased risk of nephrotoxicity compared to traditional trough targets.
--- NOTE | 2025-01-20 10:59 | Anesthesiology Consultation ---
Date of Service January 20, 2025 Assessment & Plan Consults Requested medical & cardiac Pulmonary History Surgery Operation Date: 01/20/25 11:50 Proposed Procedures p Cystoscopy, Bilateral Ureteral Stent Placement - Sean Grant DO Operation Date: 01/20/25 12:50 Proposed Procedures p Cystoscopy Possible Bilateral Stent Placement - Sean Grant DO Pt with admit through ER with hypotension and anemia. He has a known inoperable rectal mass causing bilateral ureteral compression/obstruction. He has been septic and on norepinephrine. He was transfused from hgb 5.8 increased to 8.2 on last check Height/Weight Height: 5 ft 10 in Weight: 64.1 kg Allergies Allergy/AdvReac Type Severity Reaction Status Date / Time aspirin Allergy Mild Unknown Unverified 03/07/24 22:24 Penicillins Allergy Mild Unknown Verified 03/07/24 22:24 cefepime Allergy Confusion Verified 01/19/25 18:53 Medications Home Medications Medication Instructions Recorded Confirmed Last Taken levothyroxine 50 mcg tablet 50 mcg PO DAILYBB 02/03/24 01/19/25 01/19/25 metformin 500 mg tablet,extended 500 mg PO QAM 02/03/24 01/19/25 01/19/25 release 24 hr risperidone 2 mg tablet 2 mg PO HS 02/03/24 01/19/25 01/18/25 venlafaxine 75 mg capsule,extended 150 mg PO QAM 02/03/24 01/19/25 01/19/25 release 24 hr (Effexor XR) apixaban 5 mg tablet (Eliquis) 5 mg PO BID 03/07/24 01/19/25 01/19/25 08:00 folic acid 1 mg tablet 1 mg PO QAM 03/07/24 01/19/25 01/19/25 thiamine HCl (vitamin B1) 100 mg 100 mg PO DAILY 03/07/24 01/19/25 01/19/25 tablet ammonium lactate 12 % lotion 1 applic topical BID 01/19/25 01/19/25 Unknown cephalexin 500 mg capsule 500 mg PO BID 01/19/25 01/19/25 01/19/25 08:00 cholecalciferol (vitamin D3) 25 25 mcg PO DAILY 01/19/25 01/19/25 01/19/25 mcg (1,000 unit) capsule (Vitamin D3) ciprofloxacin HCl 250 mg tablet 250 mg PO Q12H 01/19/25 01/19/25 01/19/25 08:00 magnesium oxide 400 mg PO DAILY 01/19/25 01/19/25 01/19/25 metoprolol succinate 25 mg 12.5 mg PO DAILY 01/19/25 01/19/25 01/19/25 tablet,extended release 24 hr midodrine 10 mg tablet 10 mg PO TIDM 01/19/25 01/19/25 01/19/25 08:00 nystatin 100,000 unit/gram topical 1 applic topical BID 01/19/25 01/19/25 Unknown cream pantoprazole 40 mg tablet,delayed 40 mg PO DAILY 01/19/25 01/19/25 01/19/25 release potassium chloride 20 mEq 20 meq PO DAILY 01/19/25 01/19/25 01/19/25 tablet,extended release(part/cryst) Active Medications Generic Name Dose Route Start Last Admin Trade Name Freq PRN Reason Stop Dose Admin Norepinephrine Bitartrate 4 mg in 250 mls @ 0 mls/hr 01/19/25 18:30 01/20/25 05:52 Levophed/D5w IV 02/18/25 18:29 Not Given .Q0M BHAKTI Protocol 0 MCG/KG/MIN Pantoprazole Sodium 40 mg in 10 mls @ 5 mls/min 01/20/25 09:00 01/20/25 09:43 Protonix IV 02/19/25 08:59 5 mls/min BID BHAKTI Administration Piperacillin Sod/Tazobactam Sod 4.5 gm in 100 mls @ 25 mls/hr 01/20/25 06:00 01/20/25 09:52 Zosyn IV 01/30/25 05:59 Infused Q8H BHAKTI Infusion Protocol Thiamine HCl 100 mg/ Syringe 10 mls @ 2 mls/min 01/20/25 09:00 01/20/25 09:43 IV 02/19/25 08:59 2 mls/min QAM BHAKTI Administration Parenteral Electrolytes 1,000 mls @ 125 mls/hr 01/20/25 02:15 01/20/25 10:02 Plasma-Lyte A Ph 7.4 IV 01/23/25 02:14 125 mls/hr .Q8H BHAKTI Administration Albumin Human 25 gm in 100 mls @ 50 mls/hr 01/20/25 08:15 01/20/25 10:04 Albumin 25% IV 01/20/25 12:14 50 mls/hr Q2H BHAKTI Administration Insulin Aspart 0 units 01/20/25 01:45 01/20/25 05:57 Insulin Aspart Per Unit Charge SC 02/19/25 01:44 2 units Q6 BHAKTI Administration Midodrine 10 mg 01/20/25 08:00 01/20/25 08:45 Midodrine Hcl 10 Mg Tab PO 02/19/25 07:59 10 mg TIDM BHAKTI Administration Past Medical History Medical History Hypokalemia Acute kidney injury Acute hyponatremia Sepsis Hypothyroid Social History Smoking Status: Never smoker Do You Dip or Chew Tobacco: No Hx Alcohol Use: No Hx Substance Use: No substance use type: does not use Physical Exam Vital Signs Last Vital Signs Temp 37.2 C 01/20/25 06:00 Pulse 146 H 01/20/25 06:00 Resp 27 H 01/20/25 06:00 BP 112/68 01/20/25 06:00 Pulse Ox 98 01/20/25 06:00 O2 Del Method Room Air 01/20/25 03:15 Testing Laboratory Results 01/20/25 09:44 01/20/25 09:44 PT 11.9 Seconds (9.0-12.0) 01/20/25 04:16 INR 1.1 (0.9-1.1) 01/20/25 04:16 APTT 32 Seconds (21-31) H 01/20/25 04:16 Urine Color Yellow 01/19/25 Unknown Urine Appearance Cloudy (Clear) A 01/19/25 Unknown Urine pH 5.5 (4.5-7.5) 01/19/25 Unknown Ur Specific [place] 1.013 (1.000-1.030) 01/19/25 Unknown Urine Protein 2+ (Negative) H 01/19/25 Unknown Urine Glucose (UA) Negative (Negative) 01/19/25 Unknown Urine Ketones Negative (Negative) 01/19/25 Unknown Urine Nitrite Negative (Negative) 01/19/25 Unknown Ur Leukocyte Esterase 2+ (Negative) H 01/19/25 Unknown Urine WBC (Auto) 21-50 /hpf (0-5) H 01/19/25 Unknown Urine RBC (Auto) >20 /hpf (0-2) H 01/19/25 Unknown U Hyaline Cast (Auto) 11-20 /lpf (0-2) H 01/19/25 Unknown U Epithel Cells (Auto) 0-2 /hpf (0-2) 01/19/25 Unknown Urine Bacteria (Auto) None Seen (None Seen) 01/19/25 Unknown Blood Type B Positive 01/19/25 17:51 Antibody Screen NEGATIVE 01/19/25 17:51 01/19/25 17:40 Anaerobic Blood Culture - Preliminary Blood Gram positive cocci in chains 01/19/25 17:40 Aerobic Blood Culture - Preliminary Blood Gram negative bacilli 01/20/25 01/20/25 05:55 01:55 POC Glucose 180 H 219 H Echocardiogram Date: 02/04/24 EF: 65 LV Function: normal Valvular Disease: + no significant valvular disease
[2025-01-20] MEDS ORDERED: DEXAMETHASONE SOD INJ 4 MG/ML VIAL ONE (11:49)
[2025-01-20] MEDS ORDERED: PROPOFOL IV EMULSION 10 MG/ML 20 ML VIAL IV ONE (11:49)
[2025-01-20] MEDS ORDERED: ONDANSETRON INJ 2 MG/ML 2 ML VIAL ONE (11:49)
[2025-01-20] MEDS ORDERED: LIDOCAINE 2% 2 ML VIAL/AMP(20MG/ML) INFIL ONE (11:49)
[2025-01-20] MEDS ORDERED: ATROPINE SULFATE 0.1 MG/ML 10ML SYR IV PRN (11:57)
[2025-01-20] MEDS ORDERED: PROMETHAZINE HCL 6.25 MG in SODIUM CHLORIDE 0.9% 50 ML IV PRN (11:57)
--- NOTE | 2025-01-20 12:11 | Gastrointestinal Consultation ---
Date of Consultation January 20, 2025 Assessment & Plan (1) Pancreatitis: Supportive care with IV hydration, pain control, & NPO status. Will defer treatment of his overall complex medical picture to primary team. Supervising Physician Co-Signing Physician Notes Patient seen and examined and agree with CONY Graves as above Very difficult situation as patient has multiple medical comorbidities He currently is not answering questions, though his parents are at the bedside and state this is much different than how he has been previously. Abd: Soft, NT, ND, +BS Continue current therapy and supportive care Recommend Palliative care consult History of Present Illness Reason for Consultation: Pancreatitis Attending Physician: Nate Saini MD, PhD History of Present Illness Patient is a 54 yo male with an unfortunate past medical history of rectal mass who is currently admitted with septic shock. He was brought to the ED due to worsening confusion but had been seen at [facility] several days prior and was told he was not a surgical candidate for his rectal mass. He recently was hospitalized at [facility]. Family noted that his Hemoglobin at that visit was 8.9. When he arrived to [facility], his hemoglobin was 5.8. He was hypotensive requiring pressor support. A CT abdomen/pelvis also appears to indicated an acute on chronic pancreatitis. He is currently admitted in the ICU. WBC count is 25,810. H/H 8.2/28.6. K 6.0. Na 133 (improved from 123 on presentation). CO2 14. BUN/Cr 22/1.38. Lactate 2.8. Mg 2.5. LFTs wnl. Lipase 1641. Procalcitonin 6.15. Positive PCR screens for enterobacterales, enterococcfaecium, K pneumoniae. IMPRESSION: 1. The previously noted soft tissue rectal mass previously filling the pelvic outlet and extending below the pelvic floor has expanded with invasion of the obturator muscles, [id number]-left. There is also further extension inferiorly below the pelvic floor with involvement of the medial aspect of the gluteal muscles bilaterally. There is also extension to the skin surface with a pedunculated masslike component on the left now identified measuring 5.5 x 3.3 x 3.4 cm. There is heterogeneous enhancement of the mass but no obvious active arterial extravasation internally. 2. No evidence for high-grade bowel obstruction. No evidence for intraluminal contrast extravasation within the stomach, small bowel or proximal colonic segments extending to the left lower quadrant colostomy, accounting for limitations with respiratory artifact. 3. Similar calcifications involving the tail of the pancreas and at the pancreatic head consistent with chronic pancreatitis. However, there is new peripancreatic fat stranding and edema surrounding the pancreas. The appearance is consistent with acute pancreatitis. 4. Moderate bilateral hydroureteronephrosis with distention of the ureters extending to the pelvic mass. A component of urinary retention is suspected from extrinsic compression by the mass. Patient is going for cystoscopy with stent placement today but may ultimately require nephrostomy tubes. It does appear the hospitalist had placed a palliative consult, then this appears to subsequently have been cancelled. Allergies Allergy/AdvReac Type Severity Reaction Status Date / Time aspirin Allergy Mild Unknown Unverified 03/07/24 22:24 Penicillins Allergy Mild Unknown Verified 03/07/24 22:24 cefepime Allergy Confusion Verified 01/19/25 18:53 Home Medications Medication Instructions Recorded Confirmed Type levothyroxine 50 mcg tablet 50 mcg PO DAILYBB 02/03/24 01/19/25 History metformin 500 mg tablet,extended 500 mg PO QAM 02/03/24 01/19/25 History release 24 hr risperidone 2 mg tablet 2 mg PO HS 02/03/24 01/19/25 History venlafaxine 75 mg capsule,extended 150 mg PO QAM 02/03/24 01/19/25 History release 24 hr (Effexor XR) apixaban 5 mg tablet (Eliquis) 5 mg PO BID 03/07/24 01/19/25 History folic acid 1 mg tablet 1 mg PO QAM 03/07/24 01/19/25 History thiamine HCl (vitamin B1) 100 mg 100 mg PO DAILY 03/07/24 01/19/25 History tablet ammonium lactate 12 % lotion 1 applic topical BID 01/19/25 01/19/25 History cephalexin 500 mg capsule 500 mg PO BID 01/19/25 01/19/25 History cholecalciferol (vitamin D3) 25 25 mcg PO DAILY 01/19/25 01/19/25 History mcg (1,000 unit) capsule (Vitamin D3) ciprofloxacin HCl 250 mg tablet 250 mg PO Q12H 01/19/25 01/19/25 History magnesium oxide 400 mg PO DAILY 01/19/25 01/19/25 History metoprolol succinate 25 mg 12.5 mg PO DAILY 01/19/25 01/19/25 History tablet,extended release 24 hr midodrine 10 mg tablet 10 mg PO TIDM 01/19/25 01/19/25 History nystatin 100,000 unit/gram topical 1 applic topical BID 01/19/25 01/19/25 History cream pantoprazole 40 mg tablet,delayed 40 mg PO DAILY 01/19/25 01/19/25 History release potassium chloride 20 mEq 20 meq PO DAILY 01/19/25 01/19/25 History tablet,extended release(part/cryst) Patient History Medical History Hypokalemia Acute kidney injury Acute hyponatremia Sepsis Hypothyroid Social History Smoking Status: Never smoker Second Hand Exposure: No; Do You Dip or Chew Tobacco: No; Tobacco Cessation Education Requested by Patient: No Hx Alcohol Use: No Hx Substance Use: No Preferred Language: Latvian Communication Ability: Effective 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 Beliefs That Will Affect Care: Spiritual Current Living Situation: Family Other Information That Helps Us Care for You: No Feels Safe at Home: Yes Safety Concerns: Feels Safe At This Time Assistive Devices: Glasses Review of Systems Review of Systems: Unobtainable due to cognitive status Physical Exam Constitutional: + ill appearing; no acute distress Respiratory: no respiratory distress Gastrointestinal (Abdomen): Inspection/Auscultation: + abdomen distended Neurologic: + confused Results & Data Vital Signs (Past 12 Hours) Vital Signs Temp Pulse Pulse Resp BP BP BP 01/20/25 11:03 126 H 25 H 01/20/25 11:00 103/56 L 01/20/25 10:06 126 H 24 01/20/25 10:00 95/50 L 01/20/25 09:32 95/58 L 01/20/25 09:30 138 H 32 H 01/20/25 09:00 103/60 01/20/25 09:00 36.7 C 01/20/25 08:57 139 H 30 H 01/20/25 08:45 88/50 L 01/20/25 08:06 153 H 26 H 01/20/25 08:00 102/61 01/20/25 08:00 149 H 01/20/25 07:06 146 H 29 H 01/20/25 07:00 104/61 01/20/25 06:00 146 H 27 H 01/20/25 06:00 37.2 C 112/68 01/20/25 05:45 144 H 30 H 01/20/25 05:45 110/62 01/20/25 05:45 110/62 01/20/25 05:45 110/62 01/20/25 05:45 110/62 01/20/25 05:45 110/62 01/20/25 05:33 141 H 32 H 01/20/25 05:30 111/66 01/20/25 05:16 149 H 33 H 96/62 L 01/20/25 05:15 96/62 L 01/20/25 05:12 149 H 35 H 01/20/25 05:06 151 H 29 H 01/20/25 05:00 96/65 L 01/20/25 04:45 101/53 L 01/20/25 04:45 101/53 L 01/20/25 04:30 149 H 35 H 01/20/25 04:30 105/66 01/20/25 04:30 105/66 01/20/25 04:15 107/60 01/20/25 04:15 107/60 01/20/25 04:15 149 H 27 H 01/20/25 04:06 151 H 27 H 01/20/25 04:00 113/61 01/20/25 04:00 113/61 01/20/25 04:00 37.5 C 150 H 31 H 113/61 01/20/25 03:57 149 H 32 H 01/20/25 03:45 145 H 25 H 01/20/25 03:30 144 H 31 H 01/20/25 03:30 118/70 01/20/25 03:24 143 H 31 H 01/20/25 03:15 117/71 01/20/25 03:15 142 H 31 H 117/71 01/20/25 03:03 139 H 32 H 01/20/25 03:00 114/71 01/20/25 02:34 37.2 C 141 H 30 H 113/66 01/20/25 02:26 37.1 C 141 H 31 H 116/71 01/20/25 01:36 113/71 01/20/25 01:26 37.4 C 142 H 30 H 112/64 01/20/25 00:56 37 C 146 H 25 H 114/69 01/20/25 00:45 106/63 01/20/25 00:41 37 C 143 H 27 H 109/59 L 01/20/25 00:23 37.4 C 144 H 33 H 106/59 L Pulse Ox O2 Del Method 01/20/25 11:03 96 01/20/25 11:00 01/20/25 10:06 98 Room Air 01/20/25 10:00 01/20/25 09:32 01/20/25 09:30 01/20/25 09:00 01/20/25 09:00 01/20/25 08:57 99 01/20/25 08:45 01/20/25 08:06 99 01/20/25 08:00 01/20/25 08:00 01/20/25 07:06 100 01/20/25 07:00 01/20/25 06:00 98 01/20/25 06:00 01/20/25 05:45 100 01/20/25 05:45 01/20/25 05:45 01/20/25 05:45 01/20/25 05:45 01/20/25 05:45 01/20/25 05:33 100 01/20/25 05:30 01/20/25 05:16 99 01/20/25 05:15 01/20/25 05:12 100 01/20/25 05:06 95 01/20/25 05:00 01/20/25 04:45 01/20/25 04:45 01/20/25 04:30 99 01/20/25 04:30 01/20/25 04:30 01/20/25 04:15 01/20/25 04:15 01/20/25 04:15 98 01/20/25 04:06 98 01/20/25 04:00 01/20/25 04:00 01/20/25 04:00 98 01/20/25 03:57 98 01/20/25 03:45 99 01/20/25 03:30 99 01/20/25 03:30 01/20/25 03:24 98 01/20/25 03:15 01/20/25 03:15 98 Room Air 01/20/25 03:03 98 01/20/25 03:00 01/20/25 02:34 99 01/20/25 02:26 100 01/20/25 01:36 01/20/25 01:26 100 01/20/25 00:56 100 01/20/25 00:45 01/20/25 00:41 100 01/20/25 00:23 PG Care Time/CCT Total # of Minutes Spent Total Time Spent with Patient: Total time spent is greater than 50% in coordination of care (as documented) at patient's floor/unit and/or counseling patient: Coding Level of Care Code 68238 INT INP/OBS CARE 2/55MIN Diagnoses Pancreatitis K85.90
[2025-01-20] MEDS ORDERED: PHENYLEPHRINE 100MCG/ML 5ML SYR ONE ×2 (12:19→12:29)
--- NOTE | 2025-01-20 12:58 | Palliative Care Consultation ---
Date of Consultation January 20, 2025 History of Present Illness Reason for Consultation: goals of care Requesting Physician: Nate Saini MD, PhD Attending Physician: Nate Saini MD, PhD History of Present Illness 54 yo male with an unfortunate past medical history of rectal mass who is currently admitted with septic shock. He was brought to the ED due to worsening confusion but had been seen at [facility] several days prior and was told he was not a surgical candidate for his rectal mass. Family noted that his Hemoglobin at that visit was 8.9. When he arrived to [facility], his hemoglobin was 5.8. He was hypotensive requiring pressor support. A CT abdomen/pelvis also appears to indicated an acute on chronic pancreatitis. He is currently admitted in the ICU. WBC count is 25,810. H/H 8.2/28.6. K 6.0. Na 133 (improved from 123 on presentation). CO2 14. BUN/Cr 22/1.38. Lactate 2.8. Mg 2.5. LFTs wnl. Lipase 1641. Procalcitonin 6.15. Positive PCR screens for enterobacterales, enterococcfaecium, K pneumoniae. Allergies Allergy/AdvReac Type Severity Reaction Status Date / Time aspirin Allergy Mild Unknown Unverified 03/07/24 22:24 Penicillins Allergy Mild Unknown Verified 03/07/24 22:24 cefepime Allergy Confusion Verified 01/19/25 18:53 Home Medications Medication Instructions Recorded Confirmed Type levothyroxine 50 mcg tablet 50 mcg PO DAILYBB 02/03/24 01/19/25 History metformin 500 mg tablet,extended 500 mg PO QAM 02/03/24 01/19/25 History release 24 hr risperidone 2 mg tablet 2 mg PO HS 02/03/24 01/19/25 History venlafaxine 75 mg capsule,extended 150 mg PO QAM 02/03/24 01/19/25 History release 24 hr (Effexor XR) apixaban 5 mg tablet (Eliquis) 5 mg PO BID 03/07/24 01/19/25 History folic acid 1 mg tablet 1 mg PO QAM 03/07/24 01/19/25 History thiamine HCl (vitamin B1) 100 mg 100 mg PO DAILY 03/07/24 01/19/25 History tablet ammonium lactate 12 % lotion 1 applic topical BID 01/19/25 01/19/25 History cephalexin 500 mg capsule 500 mg PO BID 01/19/25 01/19/25 History cholecalciferol (vitamin D3) 25 25 mcg PO DAILY 01/19/25 01/19/25 History mcg (1,000 unit) capsule (Vitamin D3) ciprofloxacin HCl 250 mg tablet 250 mg PO Q12H 01/19/25 01/19/25 History magnesium oxide 400 mg PO DAILY 01/19/25 01/19/25 History metoprolol succinate 25 mg 12.5 mg PO DAILY 01/19/25 01/19/25 History tablet,extended release 24 hr midodrine 10 mg tablet 10 mg PO TIDM 01/19/25 01/19/25 History nystatin 100,000 unit/gram topical 1 applic topical BID 01/19/25 01/19/25 History cream pantoprazole 40 mg tablet,delayed 40 mg PO DAILY 01/19/25 01/19/25 History release potassium chloride 20 mEq 20 meq PO DAILY 01/19/25 01/19/25 History tablet,extended release(part/cryst) Patient History Medical History Hypokalemia Acute kidney injury Acute hyponatremia Sepsis Hypothyroid Social History Smoking Status: Never smoker Second Hand Exposure: No; Do You Dip or Chew Tobacco: No; Tobacco Cessation Education Requested by Patient: No Hx Alcohol Use: No Hx Substance Use: No Preferred Language: Omani Communication Ability: Effective Director Of Recruiting Required: No Beliefs That Will Affect Care: Spiritual Current Living Situation: Family Other Information That Helps Us Care for You: No Feels Safe at Home: Yes Safety Concerns: Feels Safe At This Time Assistive Devices: Glasses Results & Data Vital Signs (Past 12 Hours) Vital Signs Temp Pulse Pulse Resp BP BP BP 01/20/25 11:03 126 H 25 H 01/20/25 11:00 103/56 L 01/20/25 10:06 126 H 24 01/20/25 10:00 95/50 L 01/20/25 09:32 95/58 L 01/20/25 09:30 138 H 32 H 01/20/25 09:00 103/60 01/20/25 09:00 36.7 C 01/20/25 08:57 139 H 30 H 01/20/25 08:45 88/50 L 01/20/25 08:06 153 H 26 H 01/20/25 08:00 102/61 01/20/25 08:00 149 H 01/20/25 07:06 146 H 29 H 01/20/25 07:00 104/61 01/20/25 06:00 146 H 27 H 01/20/25 06:00 37.2 C 112/68 01/20/25 05:45 144 H 30 H 01/20/25 05:45 110/62 01/20/25 05:45 110/62 01/20/25 05:45 110/62 01/20/25 05:45 110/62 01/20/25 05:45 110/62 01/20/25 05:33 141 H 32 H 01/20/25 05:30 111/66 01/20/25 05:16 149 H 33 H 96/62 L 01/20/25 05:15 96/62 L 01/20/25 05:12 149 H 35 H 01/20/25 05:06 151 H 29 H 01/20/25 05:00 96/65 L 01/20/25 04:45 101/53 L 01/20/25 04:45 101/53 L 01/20/25 04:30 149 H 35 H 01/20/25 04:30 105/66 01/20/25 04:30 105/66 01/20/25 04:15 107/60 01/20/25 04:15 107/60 01/20/25 04:15 149 H 27 H 01/20/25 04:06 151 H 27 H 01/20/25 04:00 113/61 01/20/25 04:00 113/61 01/20/25 04:00 37.5 C 150 H 31 H 113/61 01/20/25 03:57 149 H 32 H 01/20/25 03:45 145 H 25 H 01/20/25 03:30 144 H 31 H 01/20/25 03:30 118/70 01/20/25 03:24 143 H 31 H 01/20/25 03:15 117/71 01/20/25 03:15 142 H 31 H 117/71 01/20/25 03:03 139 H 32 H 01/20/25 03:00 114/71 01/20/25 02:34 37.2 C 141 H 30 H 113/66 01/20/25 02:26 37.1 C 141 H 31 H 116/71 01/20/25 01:36 113/71 01/20/25 01:26 37.4 C 142 H 30 H 112/64 Pulse Ox O2 Del Method 01/20/25 11:03 96 01/20/25 11:00 01/20/25 10:06 98 Room Air 01/20/25 10:00 01/20/25 09:32 01/20/25 09:30 01/20/25 09:00 01/20/25 09:00 01/20/25 08:57 99 01/20/25 08:45 01/20/25 08:06 99 01/20/25 08:00 01/20/25 08:00 01/20/25 07:06 100 01/20/25 07:00 01/20/25 06:00 98 01/20/25 06:00 01/20/25 05:45 100 01/20/25 05:45 01/20/25 05:45 01/20/25 05:45 01/20/25 05:45 01/20/25 05:45 01/20/25 05:33 100 01/20/25 05:30 01/20/25 05:16 99 01/20/25 05:15 01/20/25 05:12 100 01/20/25 05:06 95 01/20/25 05:00 01/20/25 04:45 01/20/25 04:45 01/20/25 04:30 99 01/20/25 04:30 01/20/25 04:30 01/20/25 04:15 01/20/25 04:15 01/20/25 04:15 98 01/20/25 04:06 98 01/20/25 04:00 01/20/25 04:00 01/20/25 04:00 98 01/20/25 03:57 98 01/20/25 03:45 99 01/20/25 03:30 99 01/20/25 03:30 01/20/25 03:24 98 01/20/25 03:15 01/20/25 03:15 98 Room Air 01/20/25 03:03 98 01/20/25 03:00 01/20/25 02:34 99 01/20/25 02:26 100 01/20/25 01:36 01/20/25 01:26 100 PG Care Time/CCT Total # of Minutes Spent Total Time Spent with Patient: Total time spent is greater than 50% in coordination of care (as documented) at patient's floor/unit and/or counseling patient: Coding
[2025-01-20] MEDS: DIATRIZOATE MEGLUMINE 30% 100ML VIAL INSTIL PRN (13:02)
--- NOTE | 2025-01-20 13:12 | Operative Report ---
PG Post Operative Report Pre & Post Diagnosis Rectal cancer with pelvic mass. Sepsis, bilateral hydronephrosis, obstructive uropathy Same Operation Date: 01/20/25 12:50 <No data on this case meets the specified criteria> I identified the patient and participated in the time-out.: Yes Procedure Cystoscopy with bilateral retrograde pyelograms, bilateral stent placement, evacuation of bladder, urethral dilation, cystogram, ureteral dilation Right, and aspiration of urine right Operation Date: 01/20/25 12:50 <No data on this case meets the specified criteria> Surgeon Sean Grant, II, DO Java Software Engineer None Estimated Blood Loss 1 Findings Consistent with Post-Op Diagnosis Severe compression and displacement of the prostate urethra and bladder. Significant edematous changes within the bladder. Appears to be largely bullous edema. No obvious penetration of tumor or direct invasion. More significant/suspicious appearance of the prostatic urethra however does appear to be possibly post trauma versus atrophy and stricture versus possible abnor mality. No significant bleeding tumor mass was discovered however prostate was severely fixed and immobile with large amount of fibrotic irregular tissue. Displacement of the ureters bilaterally with significant hydronephrosis and tortuosity. Significant narrowing along the distal ureter bilaterally. Possible area of stricture within the mid ureter on the right. Additionally stricture within the urethra. This was dilated. Urine from right kidney aspirated light yellow coloration with no significant debris. Urine from left kidney additionally found to be clear yellow without blood or d ebris. Stents placed in good position. Specimens Urine right kidney for culture Drains 7 Fr x 26 Silicone Stent bilateral 20 Fr [place] Tip Catheter Anesthesia Type MAC Complications none Disposition Disposition: Recovery Room Indications Patient with obstruction. Risks and benefits discussed at length. Description of Procedure Patient was consented and brought back to the operating room. Patient was placed under anesthesia in the supine position and moved to the dorsal lithotomy position. Patient was prepped and draped in the regular sterile fashion. A time out was completed. A 30degree Cystoscope was placed into the urethra. The scope was able to advance easily to the bulbar urethra. The scope then advanced into the prostatic urethra which was found to be significantly irregular with large areas of fibrotic tissue possible scarring and stricture possible edematous changes and irregularity. Appears to have possibly had previous trauma possibly from difficult catheter placements due to severe displacement as the prostate was found to be significantly high riding and severely fixed with limited mobility. With some manipulation the scope was able to advance. An area of stricture within the proximal prostatic urethra was discovered and dilated. The scope further advanced into the bladder neck. A wire was able to be placed and maintained in the bladder. The scope was used to assess the bladder and the entire bladder was examined. Severe edematous changes were noted. The bladder was severely displaced and capacity was significantly limited due to the significant external compression posteriorly. Severe edematous changes were noted through the base and the trigone region. There was some more normal-appearing bladder anteriorly and along the dome. No ulceration no tumor mass. The edematous lesions in the bladder look to be more inflammatory and nonsuspicious than concerning for possible invasion. Additionally there was no areas of ulceration and no signs of necrosis. There was a large amount of debris in the base. This was evacuated. It appeared to be mucus-like and whitish appearing debris. This was able to be cleared. This allowed much better visualization of the trigone. The UO's were identified. Significant edematous changes were noted and these were severely displaced from their typical positioning. The UO was cannulized with a catheter first on the right. The catheter was able to slightly advance however was significantly compressed. It was able to be advanced then into the mid ureter and a significant amount of urine was noted to be dripping from the catheter. This was able to be aspirated and sent for culture. The urine appeared to be clear. The catheter was then attempted to be further advanced but would not advance any further. It was positioned in the distal ureter and a retrograde pyelogram was completed. Severe tortuosity and significant dilation was noted along the mid and proximal ureter and at the renal pelvis. An area in the mid ureter was found to be significantly narrowed. With some manipulation the catheter and wire were able to be further advanced and positioned in better position in the renal pelvis. The area in the mid ureter was then dilated. The wire was maintained. A 7 [place] double-J ureteral stent was then placed this was a silicone stent. The stent was confirmed to be in good position. A grasper was used to slightly reposition the proximal and to sit within the renal pelvis as opposed to the upper pole. Attention was then taken to the left side. A retrograde pyelogram was completed after cannulating the ureter. Significant distention was noted of the ureter and severe compression of the distal ureter however it did not appear to be as severe as on the right side. The catheter was able to advance easily and no significant signs of stricture was discovered. There was severe hydronephrosis in the renal pelvis. A wire was then placed. With the wire in place, a 7 Fr Double J stent was placed. Once again a silicone catheter was used. It was confirmed with fluo roscopy. A grasper was once again utilized to reposition the stent and better positioning with a good curl within the bladder. With the stents in place, the bladder was emptied. The wire remained in the lumen of the bladder. A cystogram was completed. The bladder did appear to have a acceptable capacity but did appear to have indentation on the lower portion consistent with the large mass effect from the large tumor. The bladder was left somewhat full. The scope was removed. Over the wire a 20 [place] tip catheter was placed and set to drainage. The patient was cleaned, aroused from anesthesia, and transferred to the pacu in stable condition having tolerated the procedure well with no complications. I was present and participated in all aspects of the procedure. The patient will be monitored in the PACU until transferred. Will plan to maintain maximize drainage with the 20 [place] catheter and the bilateral 7 [place] silicone stents. Patient is undergoing critical care management and monitoring due to sepsis with severe advanced malignancy of the pelvis. Will maintain drainage and follow-up. I attest to the content of the Intraoperative Record and any orders documented therein. Any exceptions are noted below.
--- NOTE | 2025-01-20 13:31 | Hospitalist Progress Note ---
Date of Service January 20, 2025 Assessment & Plan (1) Severe sepsis with septic shock: Plan: Patient remains afebrile and largely non-verbal (which the patient's sister, Ms. Tami Guerrero ( ), reports is abnormal as patient is normally verbal and usually makes sense when he speaks). WBC 22.03, N90 L3 M4, 1+ Dohle bodies (01/19/2025, 5:42pm). WBC 25.81, N91 L1 M4, (01/20/2025, 4:16am). Procalcitonin #1 7.96 ng/mL (01/19/2025, 5:42pm). Procalcitonin #2 6.15 ng/mL (01/20/2025, 9:44am). Lactic acid #1 5.3 mmol/L (01/19/2025, 5:42pm). Lactic acid #2 3.8 mmol/L (01/19/2025, 7:23pm). Lactic acid #3 2.7 mmol/L (01/20/2025, 12:21am). Lactic acid #4 2.8 mmol/L (01/20/2025, 9:44am). U/A: cloudy yellow, LE 2+, nitrite-, WBC 21-50, RBC > 20, epithelial cells 0-2, bacteria 0 (01/19/2025). Urine culture (01/19/2025): 3 organisms, all moderate counts BIOfire (01/19/2025, 5:40pm): Enterobacterales+, Enterococcus faecium+, Klebsiella pneumoniae+ Blood culture #1 (01/19/2025, 5:40pm): gram positive cocci in chains Blood culture #2 (01/19/2025, 5:40pm): gram negative bacilli creatinine 1.81, GFR 43.9, glucose 254, Ca 8.9 (01/19/2025, 5:42pm). creatinine 2.10, GFR ___, glucose 253, Ca I 1.3 (01/19/2025, 5:53pm). creatinine 1.67, GFR 48.3, glucose 222, Ca 9.2 (01/20/2025, 12:21am). creatinine 1.56, GFR 52.5, glucose 217, Ca 9.4 (01/20/2025, 4:16am). creatinine 1.38, GFR 60.8, glucose 168, Ca 8.8 (01/20/2025, 9:44am). Etiology of severe septic shock with end-organ failure (e.g., acute kidney injury) is due to catheter-associated UTI with hematogenous dissemination. s/p vancomycin 1.75g IV x1 dose (01/19/2025, 7:37pm). s/p ceftriaxone 2g IV x 1 dose (01/19/2025, 6:22pm). s/p zosyn 4.5g IV x 1 dose (01/20/2025, 12:35am). Continue zosyn 4.5g IV q8 x 1 dose (01/20/2025, 5:52am) and vancomycin 1.25g IV daily x 1 dose (01/20/2025, 9:38am). s/p 1 liter of 0.9%NS @ 999 mL/hr (01/19/2025, 6:22pm). s/p 2 liters of Plasmalyte @ 125 mL/hr (01/20/2025, 2:38am, 10:02am). s/p 2 liters of 0.9% NS @ 999 mL/hr (01/20/2025, 8:30am, 9:36am). s/p sodium bicarbonate 8.4% (50meq) IV x 1 dose (01/20/2025, 8:30am). s/p norepinephrine infusion @ 0.05 ug/kg/min (01/19/2025, 6:21am), off at 01/20/2025, 3:00am. Continue midodrine 10mg PO tid (01/20/2025, 8:45am). Check vitals, genito-urinary exam, WBC w/diff, creatinine, lactic acid, pr ocalcitonin, blood culture #1 and #2 (01/19/2025, 5:40pm) in the 01/21/2025 am. Hold off pressors as per patient's sister, Ms. Tami Guerrero ( ), who also requested that patient's code status be revised from FULL CODE @ parents' home to DNR/DNI @ [facility] ICU bed #E102-1 on 01/20/2025. Patient was subsequently transferred OUT of [facility] ICU bed #E102-1 and INTO [facility] Med-Surg without telemetry bed #W255-2 on 01/20/2025. (2) Rectal mass: Plan: Stage IV rectal CA with invasion through/below pelvic floor, obturator muscles, gluteal muscles, and through the skin with a solitary, exophytic, polypoid mass exiting from left perirectal area, 5.5 cm x 3.3 cm x 3.4 cm, and no obvious signs of drainage (sanguineous, serous, suppurative) or tenderness. Non-surgical candidate as per [facility] @ [facility] last week. Observe. (3) Anemia: Plan: Hb 5.8, MCV 83.5, MCHC 31.0 (01/19/2025, 5:42pm). Hb 8.2, MCV 81.5, MCHC 32.5 (01/20/2025, 4:16am). cf., baseline Hb range, 8.8 - 9.5 g/dL (02/03/2024 - 03/13/2024). Etiology of acute blood loss anemia remains unclear and will not be evaluated procedurally while in [facility]. Instead, patient's sister, Ms. Tami Guerrero ( ), has requested that treatment of acute blood loss anemia be limited to checking repeat Hb level in the 01/21/2025 am, and reserving packed RBC transfusion(s) for Hb level less than 7 g/dL. (4) Acute kidney injury: Plan: creatinine 1.81, GFR 43.9, glucose 254, Ca 8.9 (01/19/2025, 5:42pm). creatinine 2.10, GFR ___, glucose 253, Ca I 1.3 (01/19/2025, 5:53pm). creatinine 1.67, GFR 48.3, glucose 222, Ca 9.2 (01/20/2025, 12:21am). creatinine 1.56, GFR 52.5, glucose 217, Ca 9.4 (01/20/2025, 4:16am). creatinine 1.38, GFR 60.8, glucose 168, Ca 8.8 (01/20/2025, 9:44am). Etiology of end-organ failure (e.g., acute kidney injury) is due to severe septic shock, which in turn, leads to acute tubular necrosis (aka, ATN). Of note, severe septic shock is due to catheter-associated UTI with hematogenous dissemination. Hence, the treatment of end-organ failure (e.g., acute kidney injury) involves IV antibiotics and IV fluids, as described below: s/p vancomycin 1.75g IV x1 dose (01/19/2025, 7:37pm). s/p ceftriaxone 2g IV x 1 dose (01/19/2025, 6:22pm). s/p zosyn 4.5g IV x 1 dose (01/20/2025, 12:35am). Continue zosyn 4.5g IV q8 x 1 dose (01/20/2025, 5:52am) and vancomycin 1.25g IV daily x 1 dose (01/20/2025, 9:38am). s/p 1 liter of 0.9%NS @ 999 mL/hr (01/19/2025, 6:22pm). s/p 2 liters of Plasmalyte @ 125 mL/hr (01/20/2025, 2:38am, 10:02am). s/p 2 liters of 0.9% NS @ 999 mL/hr (01/20/2025, 8:30am, 9:36am). s/p sodium bicarbonate 8.4% (50meq) IV x 1 dose (01/20/2025, 8:30am). s/p norepinephrine infusion @ 0.05 ug/kg/min (01/19/2025, 6:21am), off at 01/20/2025, 3:00am. Continue midodrine 10mg PO tid (01/20/2025, 8:45am). Check creatinine level in the 01/21/2025 am. Hold off pressors as per patient's sister, Ms. Tami Guerrero ( ), who also requested that patient's code status be revised from FULL CODE @ parents' home to DNR/DNI @ [facility] ICU bed #E102-1 on 01/20/2025. (5) Hyponatremia: Plan: Na 121 mmol/L (01/19/2025, 5:42pm). Na 123 mmol/L (01/19/2025, 5:53pm). Na 125 mmol/L (01/20/2025, 12:21am). Na 127 mmol/L (01/20/2025, 4:16am). Na 133 mmol/L (01/20/2025, 9:44am). cf., baseline Na range, 124-135 mmol/L (02/03/2024 - 03/13/2024). Etiology of acute hypovolemic hyponatremia is most probably due to acute deh ydration, which in turn, is due to increased insensible losses of water and Na, due to acute catheter-associated UTI. s/p 1 liter of 0.9%NS @ 999 mL/hr (01/19/2025, 6:22pm). s/p 2 liters of Plasmalyte @ 125 mL/hr (01/20/2025, 2:38am, 10:02am). s/p 2 liters of 0.9% NS @ 999 mL/hr (01/20/2025, 8:30am, 9:36am). s/p sodium bicarbonate 8.4% (50meq) IV x 1 dose (01/20/2025, 8:30am). Etiolofgy of chronic hypovolemic hyponatremia is most probably due to SIADH, which in turn, is due to patient's stage IV rectal CA with invasion through/below pelvic floor, obturator muscles, gluteal muscles, and through the skin with a solitary, exophytic, polypoid mass exiting from left perirectal area, 5.5 cm x 3.3 cm x 3.4 cm, and no obvious signs of drainage (sanguineous, serous, suppurative) or tenderness. Non-surgical candidate as per [facility] @ [facility] last week. Check repeat Na level in the 01/21/2025 am. (6) Schizophrenia: Plan: Asymptomatic with no behavioral disturbances on 01/20/2025. Observe. Plan The patient is a 54-year-old male with a past medical history including rectal mass, severe sepsis with septic shock requiring ICU admission from 03/08-03/13/2024, acute bilateral obstructive uropathy, hyponatremia, schizophrenia, anemia and history of lactic acidosis. The patient was brought to the emergency department due to family concerns regarding worsening confusion. The patient himself had no current complaints. Patient has a known history of rectal mass, for which he was seen at [facility] 3 days ago, and was told that he was not a candidate for surgical treatment at that time. His hemoglobin per family at that visit was 8.9, and upon arrival to the ED today, his hemoglobin is 5.8. He was also found to be hypotensive, with blood pressure 78/52, and was started on Levophed infusion at that time. He was also found to have acute kidney injury, with creatinine 1.81, and base of 0.37. He was referred to [facility] for admission to the ICU Severe sepsis with septic shock/severe anemia- He received 1 L NSS from the EMS, and 1 L normal saline while in ED. He also received 1 unit of PRBCs in the ED Continue Levophed begun in ED Transfuse 2 units PRBCs Admit to the ICU NPO Hold Eliquis, unclear if he has been taking it, and why he was started on it last year Continue vancomycin IV and ceftriaxone IV begun in ED Pantoprazole 40 mg IV twice daily, Rectal mass- CT angiography abdomen pelvis showing significant increase in size compared to previous Was told up at [facility] that he was not currently a surgical candidate Unclear if he has been offered chemotherapy in the past Acute kidney injury- Creatinine 1.81, with base 0.37 Secondary to hypovolemia associated with anemia and dehydration Repeat laboratories in a.m. after more aggressive fluid resuscitation Electrolyte disturbances/hyperkalemia/hypomagnesemia- No signs of ectopy on monitor in the ED Potassium 5.8 on admission, likely secondary to acute kidney injury Repeat in a.m. after having received 2 L normal saline and PRBCs Magnesium sulfate 1 g IV for magnesium of 1.5 Diabetes mellitus- Hold metformin ICU protocol Admission and Anticipated Discharge Date Admission Date: January 19, 2025 Subjective Unavailable as patient remains awake and alert, NOT lethargic or obtunded, but largely non-verbal and does not answer questions, if at all, and instead, stares blankly at examiner. Review of Systems Constitutional: Unavailable as patient remains awake and alert, NOT lethargic or obtunded, but largely non-verbal and does not answer questions, if at all, and instead, stares blankly at examiner. Physical Exam Constitutional: General: Comfortable. Wide awake and alert. Not confused, lethargic, or obtunded. Largely non-verbal and does not answer questions, if at all, and instead, stares blankly at examiner. HEENT: Normocephalic, atraumatic. Pupils equally round and reactive to light. No nystagmus, gaze paresis, anisocoria, miosis, mydriasis, hyphema, scleral injection, conjunctivitis, or pterygium. No otorrhea. No pharyngeal erythema, edema, or discharge. Neck: Supple, no stridor, bruit, goiter, or hepato-jugular reflux. Jugular venous pressure is estimated to be 3 cm above the sternal angle of [place], which in turn, is 5 cm above the level of the right atrium; with jugular venous pressure estimated to be 8 cm, then, there is no jugular venous distention on 01/20/2025. Lymphatics: No cervical (anterior/posterior), supraclavicular, infraclavicular, axillary, epitrochlear, or inguinal adenopathy. Chest: Symmetric rise and fall with respirations. Non-tender to palpation. Lungs: Clear to auscultation and percussion. No audible expiratory wheeze, egophony, pectoriloquy, increase in tactile fremitus, or flatness/dullness to percussion at the bases. Heart: RRR. S1 and S2 noted. No S3 or S4 summation gallop. No tripartite friction rub. Grade II/ early systolic murmur @ LLSB without radiation to the carotids, axilla, or back, and which remains invariant in regards to the respiratory cycle. Abdomen: Soft, non-tender, non-distended. No rebound, guarding, Peters's sign, or organomegaly. Bowel sounds auscultated in all 4 quadrants. LLQ colostomy in situ with no surrounding erythema, edema, induration, warmth, tenderness, crepitus, fluctuance, discharge (sanguineous, serous, suppurative), malodor, ulceration, or lymphangitic streaking. Extremities: No clubbing, cyanosis, or edema in upper extremities or lower extremities bilaterally. 2+ pedal pulses bilaterally. Skin: No decubitus ulcer or enanthem or exanthem. Stage IV rectal CA with invasion through/below pelvic floor, obturator muscles, gluteal muscles, and through the skin with a solitary, exophytic, polypoid mass exiting from left perirectal area, 5.5 cm x 3.3 cm x 3.4 cm, and no obvious signs of drainage (sanguineous, serous, suppurative) or tenderness. Genito-urinary: No urethral discharge. + chronic indwelling william catheter with cloudy urine output at 0.96 mL/kg/hr (01/19/2025, 8:30am to 01/20/2025, 8:30am). Neurology: No facial droop. No tremors, tics, or myoclonus. Psychiatry: Flat affect. No smile(s). Results & Data Results & Data Vital Signs (Past 12 Hours) Vital Signs Temp Pulse Pulse Resp BP BP BP 01/20/25 11:03 126 H 25 H 01/20/25 11:00 103/56 L 01/20/25 10:06 126 H 24 01/20/25 10:00 95/50 L 01/20/25 09:32 95/58 L 01/20/25 09:30 138 H 32 H 01/20/25 09:00 103/60 01/20/25 09:00 36.7 C 01/20/25 08:57 139 H 30 H 01/20/25 08:45 88/50 L 01/20/25 08:06 153 H 26 H 01/20/25 08:00 102/61 01/20/25 08:00 149 H 01/20/25 07:06 146 H 29 H 01/20/25 07:00 104/61 01/20/25 06:00 146 H 27 H 01/20/25 06:00 37.2 C 112/68 01/20/25 05:45 144 H 30 H 01/20/25 05:45 110/62 01/20/25 05:45 110/62 01/20/25 05:45 110/62 01/20/25 05:45 110/62 01/20/25 05:45 110/62 01/20/25 05:33 141 H 32 H 01/20/25 05:30 111/66 01/20/25 05:16 149 H 33 H 96/62 L 01/20/25 05:15 96/62 L 01/20/25 05:12 149 H 35 H 01/20/25 05:06 151 H 29 H 01/20/25 05:00 96/65 L 01/20/25 04:45 101/53 L 01/20/25 04:45 101/53 L 01/20/25 04:30 149 H 35 H 01/20/25 04:30 105/66 01/20/25 04:30 105/66 01/20/25 04:15 107/60 01/20/25 04:15 107/60 01/20/25 04:15 149 H 27 H 01/20/25 04:06 151 H 27 H 01/20/25 04:00 113/61 01/20/25 04:00 113/61 01/20/25 04:00 37.5 C 150 H 31 H 113/61 01/20/25 03:57 149 H 32 H 01/20/25 03:45 145 H 25 H 01/20/25 03:30 144 H 31 H 01/20/25 03:30 118/70 01/20/25 03:24 143 H 31 H 01/20/25 03:15 117/71 01/20/25 03:15 142 H 31 H 117/71 01/20/25 03:03 139 H 32 H 01/20/25 03:00 114/71 01/20/25 02:34 37.2 C 141 H 30 H 113/66 01/20/25 02:26 37.1 C 141 H 31 H 116/71 01/20/25 01:36 113/71 Pulse Ox O2 Del Method 01/20/25 11:03 96 01/20/25 11:00 01/20/25 10:06 98 Room Air 01/20/25 10:00 01/20/25 09:32 01/20/25 09:30 01/20/25 09:00 01/20/25 09:00 01/20/25 08:57 99 01/20/25 08:45 01/20/25 08:06 99 01/20/25 08:00 01/20/25 08:00 01/20/25 07:06 100 01/20/25 07:00 01/20/25 06:00 98 01/20/25 06:00 01/20/25 05:45 100 01/20/25 05:45 01/20/25 05:45 01/20/25 05:45 01/20/25 05:45 01/20/25 05:45 01/20/25 05:33 100 01/20/25 05:30 01/20/25 05:16 99 01/20/25 05:15 01/20/25 05:12 100 01/20/25 05:06 95 01/20/25 05:00 01/20/25 04:45 01/20/25 04:45 01/20/25 04:30 99 01/20/25 04:30 01/20/25 04:30 01/20/25 04:15 01/20/25 04:15 01/20/25 04:15 98 01/20/25 04:06 98 01/20/25 04:00 01/20/25 04:00 01/20/25 04:00 98 01/20/25 03:57 98 01/20/25 03:45 99 01/20/25 03:30 99 01/20/25 03:30 01/20/25 03:24 98 01/20/25 03:15 01/20/25 03:15 98 Room Air 01/20/25 03:03 98 01/20/25 03:00 01/20/25 02:34 99 01/20/25 02:26 100 01/20/25 01:36 Laboratory Results WBC 22.03, N90 L3 M4, 1+ Dohle bodies, Hb 5.8, MCV 83.5, MCHC 31.0, platelet 284 (01/19/2025, 5:42pm). WBC 25.81, N91 L1 M4, Hb 8.2, MCV 81.5, MCHC 32.5, platelet 277 (01/20/2025, 4:16am). Procalcitonin #1 7.96 ng/mL (01/19/2025, 5:42pm). Procalcitonin #2 6.15 ng/mL (01/20/2025, 9:44am). Lactic acid #1 5.3 mmol/L (01/19/2025, 5:42pm). Lactic acid #2 3.8 mmol/L (01/19/2025, 7:23pm). Lactic acid #3 2.7 mmol/L (01/20/2025, 12:21am). Lactic acid #4 2.8 mmol/L (01/20/2025, 9:44am). U/A: cloudy yellow, LE 2+, nitrite-, WBC 21-50, RBC > 20, epithelial cells 0-2, bacteria 0 (01/19/2025). Urine culture (01/19/2025): 3 organisms, all moderate counts BIOfire (01/19/2025, 5:40pm): Enterobacterales+, Enterococcus faecium+, Klebsiella pneumoniae+ Blood culture #1 (01/19/2025, 5:40pm): gram positive cocci in chains Blood culture #2 (01/19/2025, 5:40pm): gram negative bacilli MRSA nares PCR+ (01/19/2025, 11:40pm). VBG 7.31 / 30 / 45 / 15 / 76.2% (01/20/2025, 9:44am). INR 1.2 (01/19/2025, 5:42pm). INR 1.1 (01/20/2025, 4:16am). Diagnostic Findings Portable CXR (01/19/2025, 5:38pm): 1. No infiltrate, effusion, cardiomegaly, pulmonary vascular congestion, or pneumothorax (by my review). CT abd/pelvis with IV contrast (01/19/2025, 8:30pm): 1. Previously noted soft tissue rectal mass previously filling pelvic outlet and extending below pelvic floor has expanded/invaded the obturator muscles, [id number]. Extension inferiorly below the pelvic floor with i nvolvement of the medial aspect of the gluteal muscles bilaterally. Extension to the skin surface with a pedunculated masslike component on the left now identified measuring 5.5 x 3.3 x 3.4 cm. Heterogeneous enhancement, but no obvious active arterial extravasation internally. 2. No evidence for high-grade bowel obstruction. No evidence for intraluminal contrast extravasation within the stomach, small bowel or proximal colonic segments extending to LLL colostomy, accounting for limitations with respiratory artifact. 3. Similar calcifications involving pancreatic tail and pancreatic head consistent with chronic pancreatitis. New peripancreatic fat stranding and edema surrounding the pancreas, consistent with acute pancreatitis. 4. Moderate bilateral hydroureteronephrosis with distention of the ureters extending to the pelvic mass. Component of urinary retention is suspected from extrinsic compression by the mass. Retrograde pyelogram (01/20/2025: PG Care Time/CCT Total # of Minutes Spent Total Time Spent with Patient: Total time spent is greater than 50% in coordination of care (as documented) at patient's floor/unit and/or counseling patient: Coding Level of Care Code 66857 SUB INP/OBS CARE 3/50MIN Diagnoses Severe sepsis with septic shock A41.9; R65.21 Rectal mass K62.89 Anemia D64.9 Anemia type: unspecified type Acute kidney injury N17.9 Hyponatremia E87.1 Schizophrenia F20.9 (3) Anemia Anemia type: unspecified type Qualified Code(s): D64.9 - Anemia, unspecified
--- NOTE | 2025-01-20 14:36 | Anesthesiology Progress Note ---
Date of Service January 20, 2025 Anesthesia Post Procedure Vital Signs Vital Signs: Temp Pulse Pulse Pulse Resp BP BP 01/20/25 14:23 36.5 C 117 H 18 01/20/25 13:50 121 H 24 01/20/25 13:40 36.5 C 120 H 24 01/20/25 13:30 119 H 24 01/20/25 13:20 117 H 25 H 01/20/25 13:10 117 H 24 01/20/25 13:06 36.3 C L 118 H 24 01/20/25 11:03 126 H 25 H 01/20/25 11:00 103/56 L 01/20/25 10:06 126 H 24 01/20/25 10:00 95/50 L 01/20/25 09:32 95/58 L 01/20/25 09:30 138 H 32 H 01/20/25 09:00 103/60 01/20/25 09:00 36.7 C 01/20/25 08:57 139 H 30 H 01/20/25 08:45 88/50 L 01/20/25 08:06 153 H 26 H 01/20/25 08:00 102/61 01/20/25 08:00 149 H 01/20/25 07:06 146 H 29 H 01/20/25 07:00 104/61 01/20/25 06:00 146 H 27 H 01/20/25 06:00 37.2 C 112/68 01/20/25 05:45 144 H 30 H 01/20/25 05:45 110/62 01/20/25 05:45 110/62 01/20/25 05:45 110/62 01/20/25 05:45 110/62 01/20/25 05:45 110/62 01/20/25 05:33 141 H 32 H 01/20/25 05:30 111/66 01/20/25 05:16 149 H 33 H 96/62 L 01/20/25 05:15 96/62 L 01/20/25 05:12 149 H 35 H 01/20/25 05:06 151 H 29 H 01/20/25 05:00 96/65 L 01/20/25 04:45 101/53 L 01/20/25 04:45 101/53 L 01/20/25 04:30 149 H 35 H 01/20/25 04:30 105/66 01/20/25 04:30 105/66 01/20/25 04:15 107/60 01/20/25 04:15 107/60 01/20/25 04:15 149 H 27 H 01/20/25 04:06 151 H 27 H 01/20/25 04:00 113/61 01/20/25 04:00 113/61 01/20/25 04:00 37.5 C 150 H 31 H 113/61 01/20/25 03:57 149 H 32 H 01/20/25 03:45 145 H 25 H 01/20/25 03:30 144 H 31 H 01/20/25 03:30 118/70 01/20/25 03:24 143 H 31 H 01/20/25 03:15 117/71 01/20/25 03:15 142 H 31 H 01/20/25 03:03 139 H 32 H 01/20/25 03:00 114/71 01/20/25 02:34 37.2 C 141 H 30 H 113/66 01/20/25 02:26 37.1 C 141 H 31 H 116/71 01/20/25 01:36 113/71 01/20/25 01:26 37.4 C 142 H 30 H 112/64 01/20/25 00:56 37 C 146 H 25 H 114/69 01/20/25 00:45 106/63 01/20/25 00:41 37 C 143 H 27 H 109/59 L 01/20/25 00:23 37.4 C 144 H 33 H 106/59 L 01/19/25 23:40 01/19/25 23:40 145 H 01/19/25 23:40 37.4 C 133 H 24 114/70 01/19/25 23:11 128 H 20 111/76 01/19/25 22:35 36.5 C 127 H 20 111/80 01/19/25 22:00 123 H 18 107/75 01/19/25 21:46 123 H 01/19/25 21:35 36.4 C L 122 H 19 98/68 L 01/19/25 20:35 36.7 C 123 H 20 108/64 01/19/25 20:05 36.7 C 118 H 18 103/66 01/19/25 20:00 115 H 16 103/66 01/19/25 19:50 37.2 C 118 H 18 95/49 L 01/19/25 19:22 36.5 C 118 H 18 103/67 01/19/25 19:05 115 H 20 92/62 L 01/19/25 18:45 114 H 25 H 93/60 L 01/19/25 18:45 93/60 L 01/19/25 18:40 89/50 L 01/19/25 18:35 88/55 L 01/19/25 18:35 112 H 28 H 83/54 L 01/19/25 18:26 113 H 28 H 01/19/25 18:25 116 H 32 H 80/48 L 01/19/25 18:19 01/19/25 18:09 123 H 36 H 78/52 L 01/19/25 17:55 124 H 01/19/25 17:38 01/19/25 17:31 36.3 C L 122 H 22 86/60 L BP Pulse Ox O2 Del Method O2 Flow Rate 01/20/25 14:23 95/53 L 95 Room Air 01/20/25 13:50 104/55 L 93 Room Air 01/20/25 13:40 104/54 L 92 Room Air 01/20/25 13:30 102/56 L 94 Oxymask 4 01/20/25 13:20 104/58 L 98 Oxymask 4 01/20/25 13:10 107/55 L 97 Oxymask 4 01/20/25 13:06 105/52 L 97 Oxymask 4 01/20/25 11:03 96 01/20/25 11:00 01/20/25 10:06 98 Room Air 01/20/25 10:00 01/20/25 09:32 01/20/25 09:30 01/20/25 09:00 01/20/25 09:00 01/20/25 08:57 99 01/20/25 08:45 01/20/25 08:06 99 01/20/25 08:00 01/20/25 08:00 01/20/25 07:06 100 01/20/25 07:00 01/20/25 06:00 98 01/20/25 06:00 01/20/25 05:45 100 01/20/25 05:45 07/18/25 05:45 01/20/25 05:45 01/20/25 05:45 01/20/25 05:45 01/20/25 05:33 100 01/20/25 05:30 01/20/25 05:16 99 01/20/25 05:15 01/20/25 05:12 100 01/20/25 05:06 95 01/20/25 05:00 01/20/25 04:45 01/20/25 04:45 01/20/25 04:30 99 01/20/25 04:30 01/20/25 04:30 01/20/25 04:15 01/20/25 04:15 01/20/25 04:15 98 01/20/25 04:06 98 01/20/25 04:00 01/20/25 04:00 01/20/25 04:00 98 01/20/25 03:57 98 01/20/25 03:45 99 01/20/25 03:30 99 01/20/25 03:30 01/20/25 03:24 98 01/20/25 03:15 01/20/25 03:15 117/71 98 Room Air 01/20/25 03:03 98 01/20/25 03:00 01/20/25 02:34 99 01/20/25 02:26 100 01/20/25 01:36 01/20/25 01:26 100 01/20/25 00:56 100 01/20/25 00:45 01/20/25 00:41 100 01/20/25 00:23 01/19/25 23:40 Room Air 01/19/25 23:40 01/19/25 23:40 100 Room Air 01/19/25 23:11 99 01/19/25 22:35 100 01/19/25 22:00 99 Room Air 01/19/25 21:46 01/19/25 21:35 100 01/19/25 20:35 100 01/19/25 20:05 99 01/19/25 20:00 100 Room Air 01/19/25 19:50 100 01/19/25 19:22 99 01/19/25 19:05 100 Room Air 01/19/25 18:45 100 01/19/25 18:45 01/19/25 18:40 01/19/25 18:35 01/19/25 18:35 100 01/19/25 18:26 100 01/19/25 18:25 100 01/19/25 18:19 100 Room Air 01/19/25 18:09 100 01/19/25 17:55 01/19/25 17:38 95 Room Air 01/19/25 17:31 95 Room Air Transfer of Care Handoff Completed per policy Notes Mental Status: alert / awake / arousable and participated in evaluation Nausea / Vomiting: adequately controlled Pain: adequately controlled Airway Patency, RR, SpO2: stable & adequate BP & HR: stable & adequate Hydration State: stable & adequate Anesthetic Complications: no major complications apparent and Pt Satisfied with anesthetic care
--- NOTE | 2025-01-20 15:40 | Fluoroscopy Report ---
FL retrograde includes kub CLINICAL HISTORY: STENT COMPARISON STUDY: None FLUOROSCOPY TIME: 92nd FLUOROSCOPY IMAGES: 5 EXPOSURE DOSE: 18 mGy FINDINGS: Fluoroscopy was provided for urologic procedure. IMPRESSION: Intraoperative fluoroscopy. ACT 112: Negative or not required by law. Electronically signed by: Kehinde Thorpe M.D. 01/20/2025 3:39 PM
--- NOTE | 2025-01-20 15:53 | Radiation OncologyConsultation ---
Date of Consultation January 20, 2025 Assessment & Plan (1) Rectal mass: Assessment: Mr. Rendon presented with a large rectal mass and eventually was treated with preoperative radiation at [facility]. This is according to the patient's sister although the records are not present at this time. This was reportedly followed by systemic chemotherapy with at least a 50% reduction in the size of the mass according to the patient's sister. The patient had some comorbid issues and was not an immediate candidate for surgery and unfortunately since then has not recovered sufficiently for consideration of pelvic surgery. He was last seen by the surgeon earlier this week in [place] based on the patient's status deemed him to be a nonsurgical candidate. Subsequent CT scans taken at [facility] due to deterioration in confusion showed progression of a large pelvic mass filling the entire pelvis compressing the bladder, invading into the gluteal muscles right greater than left and invading into the skin and extending out into the perianal tissue with a large palpable mass. Treatment Options: 1. Palliation/hospice. 2. Due to the prior radiation delivered in a preoperative setting at [facility] the only role for radiation at this point would be for palliation either for pain or bleeding and areas not previously treated. 3. Possible palliative systemic chemotherapy if recommended by medical oncology. Recommendations: I have recommended to the patient's sister who is his power of traffic law attorney that the patient the entered into hospice. Plan: 1. The patient's sister expressed agreement with placing the patient in hospice. 2. The patient's sister understands that he is not a candidate for any curative treatment options and has evidence of significant local progression of disease and would best be served by being kept comfortable and pain-free. 3. Medical oncology referral has been made for evaluation of any potential palliative role of systemic therapy at this time. History of Present Illness Reason for Consultation: The patient has evidence of progressive rectal cancer. Is there any role for radiation at this time? Attending Physician: Nate Saini MD, PhD History of Present Illness Mr. Rendon is a 54-year-old male who was diagnosed with rectal cancer in 2023. He presented with a large rectal mass and underwent a diverting colostomy at [facility] in [place]. He has since had continued issues with weakness and recurrent sepsis and bilateral hydronephrosis. He has had episodes of septic shock treated with antibiotics. He ultimately underwent a course of preoperative radiation in [place] at [facility] followed by a course of systemic chemotherapy. According to the patient's sister he had a 50% reduction in the size of the mass and was to be considered for surgery. At that time his status however was poor and he was placed in a rehab center. Unfortunately his surgery continues to be delayed and he had evidence of progressive disease. He was driven to [place] by his sister on Thursday of this week for consideration of surgery. When he was seen by the surgeon it was felt that his overall status was very poor and that he is was not considered a surgical candidate at the time. On the way home his condition continued to deteriorate and the patient was brought to the emergency department. The family relayed that the patient was brought in because of increasing confusion but did not appear to be in acute pain. A CT scan of the abdomen and pelvis were performed. The previously noted soft tissue rectal mass that had been found to be filling the pelvic outlet and extending below the pelvic floor as now expanded with invasion into the obturator muscles right greater than left. There was also further extension inferiorly below the pelvic floor. There was moderate bilateral hydroureteronephrosis with distention of the ureters extending to the pelvic mass. A component of urinary retention is suspected due to the extrinsic compression by the mass. The patient's hemoglobin upon admission was 5.8. He was seen by Dr. Grant (urology). A cystoscopy was performed and there was evidence of severe compression and displacement of the prostatic urethra and bladder with significant edematous changes within the bladder. The appear to be largely bullous edema with no obvious penetration of tumor or direct invasion. More significant/suspicious appearance of the prostatic urethra does appear to be possibly posttraumatic versus atrophy and stricture versus possible abnormality. There was no significant bleeding tumor mass in the bladder however the prostate was severely fixed and immobile with a large amount of fibrotic irregular tissue. Bilateral stents were placed. Hemoglobin after transfusion was increased to 8.2, neutrophils remain markedly elevated and patient is being treated with systemic antibiotics. Allergies Allergy/AdvReac Type Severity Reaction Status Date / Time aspirin Allergy Mild Unknown Unverified 03/07/24 22:24 Penicillins Allergy Mild Unknown Verified 03/07/24 22:24 cefepime Allergy Confusion Verified 01/19/25 18:53 Home Medications Medication Instructions Recorded Confirmed Type levothyroxine 50 mcg tablet 50 mcg PO DAILYBB 02/03/24 01/19/25 History metformin 500 mg tablet,extended 500 mg PO QAM 02/03/24 01/19/25 History release 24 hr risperidone 2 mg tablet 2 mg PO HS 02/03/24 01/19/25 History venlafaxine 75 mg capsule,extended 150 mg PO QAM 02/03/24 01/19/25 History release 24 hr (Effexor XR) apixaban 5 mg tablet (Eliquis) 5 mg PO BID 03/07/24 01/19/25 History folic acid 1 mg tablet 1 mg PO QAM 03/07/24 01/19/25 History thiamine HCl (vitamin B1) 100 mg 100 mg PO DAILY 03/07/24 01/19/25 History tablet ammonium lactate 12 % lotion 1 applic topical BID 01/19/25 01/19/25 History cephalexin 500 mg capsule 500 mg PO BID 01/19/25 01/19/25 History cholecalciferol (vitamin D3) 25 25 mcg PO DAILY 01/19/25 01/19/25 History mcg (1,000 unit) capsule (Vitamin D3) ciprofloxacin HCl 250 mg tablet 250 mg PO Q12H 01/19/25 01/19/25 History magnesium oxide 400 mg PO DAILY 01/19/25 01/19/25 History metoprolol succinate 25 mg 12.5 mg PO DAILY 01/19/25 01/19/25 History tablet,extended release 24 hr midodrine 10 mg tablet 10 mg PO TIDM 01/19/25 01/19/25 History nystatin 100,000 unit/gram topical 1 applic topical BID 01/19/25 01/19/25 History cream pantoprazole 40 mg tablet,delayed 40 mg PO DAILY 01/19/25 01/19/25 History release potassium chloride 20 mEq 20 meq PO DAILY 01/19/25 01/19/25 History tablet,extended release(part/cryst) Patient History Medical History Hypokalemia Acute kidney injury Acute hyponatremia Sepsis Hypothyroid Social History Smoking Status: Never smoker Second Hand Exposure: No; Do You Dip or Chew Tobacco: No; Tobacco Cessation Education Requested by Patient: No Hx Alcohol Use: No Hx Substance Use: No Preferred Language: Indonesian Communication Ability: Effective Metal Cnc Operator Required: No Beliefs That Will Affect Care: Spiritual Current Living Situation: Family Other Information That Helps Us Care for You: No Feels Safe at Home: Yes Safety Concerns: Feels Safe At This Time Assistive Devices: Glasses Physical Exam Constitutional: The patient did respond to his sister and his family but did not respond to my questions. When asked if he was in pain he stated he was not in pain. Gastrointestinal (Abdomen): His abdomen is soft. He denied pain although when examined he did appear to have some discomfort with deep palpation. Genitourinary: There was a large mass and induration in the perianal region on the left side consistent with the finding on CT scan of tumor extending through the skin. Lymphatic: There were no palpable inguinal lymph nodes appreciated. Time Spent Attending This documentation has been prepared in full by Dr. Gipson. I have personally reviewed the services described and have reviewed the documentation to ensure its accuracy. I spent 15minutes with direct face to face interaction with the patient which included obtaining clinical information, recommending a plan of action and answering questions. I spent 30 minutes reviewing the patient's chart and s cans, reviewing scans with the patient's sister who is his power of traffic law attorney, discussing treatment options and recommendations with the patient's sister and completion of this document. KULWANT
[2025-01-20 16:01] LABS: Anion Gap 8.0 (3-11); Blood Urea Nitrogen 20.0 mg/dl (6-23); Calcium 8.9 mg/dl (8.6-10.3); Carbon Dioxide 17.0 mmol/L (21-32); Chloride 111.0 mmol/L (98-107); Creatinine Clr Calc Pharmacy 58.0 ml/min; Glucose 221.0 mg/dl (70-99(Fasting)); Potassium 4.1 mmol/L (3.5-5.1); Sodium 136.0 mmol/L (136-145)
[2025-01-20] MEDS: VANCOMYCIN HCL 1,000 MG/270 ML BAG IV SCH (21:57)
[2025-01-21 05:02] LABS: Hematocrit (blood only) 25.3 % (42.0-52.0); Hemoglobin 8.3 g/dl (14.0-18.0); Immature Granulocytes # (auto) 0.29 K/uL (0.01-0.20); Immature Granulocytes % (auto) 2.5 %; Mean Corpuscular Hemoglobin 26.4 pg (25.0-34.0); Mean Corpuscular Volume 80.6 fL (80.0-100.0); Platelet Count 197 K/uL (130-400); RDW Standard Deviation 46.5 fL (36.4-46.3); Red Blood Count 3.14 M/uL (4.70-6.10); White Blood Count 11.71 K/ul (4.8-10.8)
[2025-01-21 05:10] LABS: INR 1.3 (0.9-1.1); Partial Thromboplastin Time 33 Seconds (21-31); Prothrombin Time 13.9 Seconds (9.0-12.0)
[2025-01-21 05:17] LABS: Alanine Aminotransferase 9.0 U/L (7-52); Albumin Globulin Ratio 0.6 (0.9-2); Alkaline Phosphatase 84.0 U/L (34-104); Anion Gap 8.0 (3-11); Bilirubin,Total 0.4 mg/dl (0.2-1.0); Blood Urea Nitrogen 21.0 mg/dl (6-23); Calcium 8.9 mg/dl (8.6-10.3); Carbon Dioxide 20.0 mmol/L (21-32); Chloride 114.0 mmol/L (98-107); Creatinine Clr Calc Pharmacy 65.4 ml/min; Globulin 3.7 gm/dl (2.5-4.0); Glucose 184.0 mg/dl (70-99(Fasting)); Lipase 124.0 U/L (11-82); Magnesium 1.9 mg/dl (1.7-2.4); Potassium 3.4 mmol/L (3.5-5.1); Sodium 142.0 mmol/L (136-145); Total Protein 5.9 gm/dl (6.0-8.3)
--- NOTE | 2025-01-21 09:04 | Urology Progress Note ---
Date of Service January 21, 2025 Assessment & Plan (1) Rectal mass: (2) Acute bilateral obstructive uropathy: (3) Acute blood loss anemia: (4) Anemia: (5) Metabolic acidosis: (6) Hypomagnesemia: (7) Pancreatitis: (8) Schizophrenia: (9) Severe sepsis with septic shock: Plan Postop day 1 status post bilateral stent placement and urethral dilation and ureter dilation evacuation of bladder and catheter placement. Patient has severe obstruction from extremely large pelvic mass likely from rectal cancer with invasion into the pelvic sidewall and gluteal muscles. Patient had presented severely septic with possible infection possible altered mental status possible progression of disease. Had urgent stent placement yesterday. Was able to subsequently be transferred out of the ICU with improvement. Bilateral stents were able to be placed patient did not have obvious signs of invasion into the bladder but did have severe displacement of the bladder. Had significant edematous changes and large debris in the bladder. Patient's prostate had severe scarring and changes possibly from trauma possibly from invasion possibly from chronic catheterization with history of radiation. Will likely need to maintain catheter for complete drainage. Patient family was notified before and after the procedure yesterday. Patient's stents do appear to be in good position and were draining well. Will plan to monitor output. Patient will likely need to maintain stents 7 Fr ench silicone stents were utilized which can be left in for 6 months to a year versus exchanged more frequently if needed. Will need to discuss this at a further time. Will allow patient further recovery from the most recent significant illness and plan for outpatient follow-up with [facility] in approximately 2 to 3 months to finalize plans for stent management. Will likely need to maintain catheter with catheter exchanges every month. Currently utilizing a [place] tip catheter for wire exchange if needed. Admission and Anticipated Discharge Date Admission Date: January 19, 2025 Subjective Postop from stent placement for obstruction issues. Patient presents septic. H as extremely large pelvic mass causing severe displacement of the bladder and obstruction of the ureters. Came in with unknown source of infection. Had been on broad-spectrum antibiotics. Had significant worsening hydronephrosis with chronic severe obstruction from large pelvic mass. Has invasive tumor/cancer involving the pelvic sidewall from known history of rectal cancer is being followed closely by the primary team and was able to be transferred out of the ICU after procedure yesterday. Bilateral stents placed yesterday without major issue. Patient has been poorly responsive likely secondary to significant illness as well as baseline issues. Did not state any major issue with the current stent. Only had limited responses. Patient has been tolerating well. Has noticed some frequency and urgency. Has not had severe pain in the back and flank. Does have occasional burning and irritation. No severe episodes or major changes. No new nausea or vomiting. Had tolerated anesthesia without major problems Review of Systems Review of Systems: All systems reviewed & are unremarkable except as noted in HPI & below Limited due to patient illness Physical Exam Physical Exam: General: Alert in no acute distress. Poorly responsive likely secondary to illness/baseline issues. HEENT: Normocephalic Atraumatic. Inspection normal. Cranial Nerves 2-12 Grossly intact. Normal inspection of face. Normal inspection of neck. Psychologic: Normal affect. Respiratory: Nonlabored. No use of accessory muscles. No tachypnea or dyspnea. Cardiovascular: No tachycardia Skin: [place] and Dry. No rashes or visible lesions. Extremities/Lymphatics: Lower extremity edema. Abdomen: Distended abdomen. Otherwise soft Non-distended. No rebound or guarding. : Fox catheter in place. Results & Data Vital Signs (Past 12 Hours) Vital Signs Temp Pulse Pulse Resp BP Pulse Ox O2 Del Method 01/21/25 07:31 75 01/21/25 07:24 36.5 C 68 18 98/59 L 98 Room Air 01/21/25 03:44 36.3 C L 74 16 104/62 98 Room Air 01/21/25 00:00 105 H 01/20/25 23:25 36.9 C 112 H 18 104/63 95 Room Air PG Care Time/CCT Total # of Minutes Spent Total Time Spent with Patient: Total time spent is greater than 50% in coordination of care (as documented) at patient's floor/unit and/or counseling patient: Coding Level of Care Code 23870 SUB INP/OBS CARE 3/50MIN Diagnoses Rectal mass K62.89 Acute bilateral obstructive uropathy N13.9 Acute blood loss anemia D62 Anemia D64.9 Anemia type: unspecified type Metabolic acidosis E87.20 Hypomagnesemia E83.42 Pancreatitis K85.90 Schizophrenia F20.9 Severe sepsis with septic shock A41.9; R65.21 (4) Anemia Anemia type: unspecified type Qualified Code(s): D64.9 - Anemia, unspecified
--- NOTE | 2025-01-21 09:14 | Pharmacy Report ---
Pharmacy PK ABX Note - Date of Service January 21, 2025 - Assessment and Plan Assessment 01/21: * Day #2 of Vancomycin and Zosyn. White count and SCr improving. Remains afebrile. * One blood culture growing Klebsiella pneumonia while the other is growing Enterococcus faecium. Sensitivities pending. * Vanc level returned high today at 24.8 mcg/mL. Urine output has been excellent. Expect SCr to continue to improve over the next 24-48 hours, baseline is near 0.5 mg/dL. Will reduce dose today and check another level tomorrow. 01/20: 54 year old M receiving Vancomycin and Zosyn for treatment of empiric sepsis. * Day #1 of antimicrobial therapy. PMHx significant for rectal mass, no c hemo/radiation, non-operable. * White count worsened today, 26k. Lactate improved but still elevated. Procalcitonin improved but elevated as well. Afebrile. * Significant BUDDY upon admit, SCr 1.81 mg/dL. This has improved with most recent BMP showing a SCr of 1.38 mg/dL. Did receive 25 mg/kg loading dose in the ED. Gave a one time dose of 1250 mg this morning. * Blood cultures are growing Klebsiella pneumoniae (not ESBL) as well as Enterococcus faecium (not VRE). Given severity of illness, would prefer to be more aggressive with this patient. Urine output has been excellent today. Suspect SCr to continue to improve and be < 1 mg/dL by tomorrow morning. Therefore, will empirically start 1250 mg IV every 12 hours despite predicted AUC/HIEU at current state to be > 600. Suspect AUC will be in goal range tomorrow as long as SCr continues to improve. Will order a random level with AM labs. Plan Vancomycin * Current regimen: 1000 mg IV every 12 hours * Random level obtained 01/21/25 resulted as 24.8 mcg/mL. This is supratherapeutic. * Change to 750 mg IV every 12 hours. Predicted AUC at steady state: 516 mg/L.hr * Repeat random level ordered for: 01/22/25 Zosyn * 4.5 g IV every 8 hours Pharmacy will continue to follow and will adjust dose/frequency as necessary. Thank you. Pharmacy has transitioned to AUC monitoring for vancomycin. AUC/HIEU is the preferred PK/PD target and is associated with decreased risk of nephrotoxicity compared to traditional trough targets.
[2025-01-21] MEDS: VANCOMYCIN 750 MG in SODIUM CHLORIDE 0.9% 250 ML IV SCH (11:14)
[2025-01-21] MEDS ORDERED: INSULIN ASPART PER UNIT CHARGE SC SCH (11:30)
--- NOTE | 2025-01-21 16:54 | Hospitalist Progress Note ---
Date of Service January 21, 2025 Assessment & Plan (1) Severe sepsis with septic shock: Plan: Severe sepsis with septic shock is RESOLVING well on 01/21/2025, as patient remains afebrile, but his largely non-verbal (which the patient's sister, Ms. Tami Guerrero ( ), reported was abnormal as patient is normally verbal and usually makes sense when he speaks) state on admission date 01/19/2025 and on subsequent date 01/20/2025, has completely RESOLVED on 01/21/2025, and patient speaks fluently, articulately, and coherently in 7-9 word sentences without pause, interruption, cough, or wheeze. I surmise that the principal reason for patient's dramatic improvement in mentation over the past 24 hours is due to empiric antibiotic therapy utilizing: a. vancomycin 1.75g IV x 1 dose (01/19/2025, 7:37pm). b. vancomycin 1.25g IV daily x 1 dose (01/20/2025, 9:38am). c. vancomycin 1g IV q12 x 2 doses (01/20/2025, 9:57pm; 01/21/2025, 3:38pm). d. vancomycin 750mg IV q12 x 1 dose (01/21/2025, 11:14am). e. zosyn 4.5g IV q 8 x 6 doses (01/20/2025, 12:35am, 5:62am, 5:20pm, 11:21pm; 01/21/2025, 6:15am, 1:37pm). WBC 22.03, N90 L3 M4, 1+ Dohle bodies (01/19/2025, 5:42pm). WBC 25.81, N91 L1 M4, (01/20/2025, 4:16am). WBC 11.71, N89 L2 M6, (01/21/2025, 4:49am). Procalcitonin #1 7.96 ng/mL (01/19/2025, 5:42pm). Procalcitonin #2 6.15 ng/mL (01/20/2025, 9:44am). Procalcitonin #3 3.78 ng/mL (01/21/2025, 8:49am). Lactic acid #1 5.3 mmol/L (01/19/2025, 5:42pm). Lactic acid #2 3.8 mmol/L (01/19/2025, 7:23pm). Lactic acid #3 2.7 mmol/L (01/20/2025, 12:21am). Lactic acid #4 2.8 mmol/L (01/20/2025, 9:44am). Lactic acid #5 1.5 mmol/L (01/20/2025, 3:34pm). Lactic acid #6 1.5 mmol/L (01/21/2025, 8:49am). U/A: cloudy yellow, LE 2+, nitrite-, WBC 21-50, RBC > 20, epithelial cells 0-2, bacteria 0 (01/19/2025). Urine culture (01/19/2025): 3 organisms, all moderate counts BIOfire (01/19/2025, 5:40pm): Enterobacterales+, Enterococcus faecium+, Klebsiella pneumoniae+ Blood culture #1 (01/19/2025, 5:40pm): gram positive cocci in chains Blood culture #2 (01/19/2025, 5:40pm): gram negative bacilli creatinine 1.81, GFR 43.9 (01/19/2025, 5:42pm). creatinine 2.10, GFR ___ (01/19/2025, 5:53pm). creatinine 1.67, GFR 48.3 (01/20/2025, 12:21am). creatinine 1.56, GFR 52.5 (01/20/2025, 4:16am). creatinine 1.38, GFR 60.8 (01/20/2025, 9:44am). creatinine 1.32, GFR 64.1 (01/20/2025, 3:34pm). creatinine 1.17, GFR 74.1 (01/21/2025, 4:49am). Etiology of severe septic shock with end-organ failure (e.g., acute kidney injury) is due to catheter-associated UTI with hematogenous dissemination. Severe septic shock is RESOLVING very well and so too is end-organ failure (e.g., acute kidney injury), as shown above by the progressive decline in creatinine levels. In addition to empiric antibiotics as described above, patient has received and continues to receive IV fluid rehydration therapy, as shown below: s/p 1 liter of 0.9%NS @ 999 mL/hr (01/19/2025, 6:22pm). s/p 5 liters of Plasmalyte @ 125 mL/hr (01/20/2025, 2:38am, 10:02am, 7:26pm; 01/21/2025, 3:32am, 2:50pm, ongoing ). s/p 2 liters of 0.9% NS @ 999 mL/hr (01/20/2025, 8:30am, 9:36am). s/p sodium bicarbonate 8.4% (50meq) IV x 1 dose (01/20/2025, 8:30am). s/p norepinephrine infusion @ 0.05 ug/kg/min (01/19/2025, 6:21am), off at 01/20/2025, 3:00am. Continue midodrine 10mg PO tid (01/20/2025, 8:45am). Check vitals, genito-urinary exam, WBC w/diff, creatinine, lactic acid, procalcitonin, blood culture #1 and #2 (01/19/2025, 5:40pm) in the 01/22/2025 am. Hold off pressors as per patient's sister, Ms. Tami Guerrero ( ), who also requested that patient's code status be revised from FULL CODE @ parents' home to DNR/DNI @ [facility] ICU bed #E102-1 on 01/20/2025. Patient was subsequently transferred OUT of [facility] ICU bed #E102-1 and INTO [facility] Med-Surg without telemetry bed #W255-2 on 01/20/2025. (2) Rectal mass: Plan: Stage IV rectal CA with invasion through/below pelvic floor, obturator muscles, gluteal muscles, and through the skin with a solitary, exophytic, polypoid mass exiting from left perirectal area, 5.5 cm x 3.3 cm x 3.4 cm, and no obvious signs of drainage (sanguineous, serous, suppurative) or tenderness. Non-surgical candidate as per [facility] @ [facility] last week. Observe. (3) Anemia: Plan: Hb 5.8, MCV 83.5, MCHC 31.0 (01/19/2025, 5:42pm). Hb 8.2, MCV 81.5, MCHC 32.5 (01/20/2025, 4:16am). Hb 8.3, MCV 80.6, MCHC 32.8 (01/21/2025, 4:49am). cf., baseline Hb range, 8.8 - 9.5 g/dL (02/03/2024 - 03/13/2024). Etiology of acute blood loss anemia remains unclear and will not be evaluated procedurally while in [facility]. Instead, patient's sister, Ms. Tami Guerrero ( ), has requested that treatment of acute blood loss anemia be limited to checking repeat Hb level in the 01/22/2025 am, and reserving packed RBC transfusion(s) for Hb level less than 7 g/dL. (4) Acute kidney injury: Plan: creatinine 1.81, GFR 43.9 (01/19/2025, 5:42pm). creatinine 2.10, GFR ___ (01/19/2025, 5:53pm). creatinine 1.67, GFR 48.3 (01/20/2025, 12:21am). creatinine 1.56, GFR 52.5 (01/20/2025, 4:16am). creatinine 1.38, GFR 60.8 (01/20/2025, 9:44am). creatinine 1.32, GFR 64.1 (01/20/2025, 3:34pm). creatinine 1.17, GFR 74.1 (01/21/2025, 4:49am). Etiology of end-organ failure (e.g., acute kidney injury) is due to severe septic shock, which in turn, leads to acute tubular necrosis (aka, ATN). Of n ote, severe septic shock is due to catheter-associated UTI with hematogenous dissemination. Hence, the treatment of end-organ failure (e.g., acute kidney injury) involves IV antibiotics and IV fluids, as described below: a. ceftriaxone 2g IV x 1 dose (01/19/2025, 6:22pm). b. vancomycin 1.75g IV x 1 dose (01/19/2025, 7:37pm). c. vancomycin 1.25g IV daily x 1 dose (01/20/2025, 9:38am). d. vancomycin 1g IV q12 x 2 doses (01/20/2025, 9:57pm; 01/21/2025, 3:38pm). e. vancomycin 750mg IV q12 x 1 dose (01/21/2025, 11:14am). f. zosyn 4.5g IV q 8 x 6 doses (01/20/2025, 12:35am, 5:62am, 5:20pm, 11:21pm; 01/21/2025, 6:15am, 1:37pm). s/p 1 liter of 0.9%NS @ 999 mL/hr (01/19/2025, 6:22pm). s/p 5 liters of Plasmalyte @ 125 mL/hr (01/20/2025, 2:38am, 10:02am, 7:26pm; 01/21/2025, 3:32am, 2:50pm, ongoing ). s/p 2 liters of 0.9% NS @ 999 mL/hr (01/20/2025, 8:30am, 9:36am). s/p sodium bicarbonate 8.4% (50meq) IV x 1 dose (01/20/2025, 8:30am). s/p norepinephrine infusion @ 0.05 ug/kg/min (01/19/2025, 6:21am), off at 01/20/2025, 3:00am. Continue midodrine 10mg PO tid (01/20/2025, 8:45am). Check creatinine level in the 01/22/2025 am. Hold off pressors as per patient's sister, Ms. Tami Guerrero ( ), who also requested that patient's code status be revised from FULL CODE @ parents' home to DNR/DNI @ [facility] ICU bed #E102-1 on 01/20/2025. (5) Hyponatremia: Plan: Na 121 mmol/L (01/19/2025, 5:42pm). Na 123 mmol/L (01/19/2025, 5:53pm). Na 125 mmol/L (01/20/2025, 12:21am). Na 127 mmol/L (01/20/2025, 4:16am). Na 133 mmol/L (01/20/2025, 9:44am). Na 136 mmol/L (01/20/2025, 3:34pm). Na 142 mmol/L (01/21/2025, 4:49am). cf., baseline Na range, 124-135 mmol/L (02/03/2024 - 03/13/2024). Etiology of acute hypovolemic hyponatremia was most probably due to acute dehydration, which in turn, is due to increased insensible losses of water and Na, due to acute catheter-associated UTI. s/p 1 liter of 0.9%NS @ 999 mL/hr (01/19/2025, 6:22pm). s/p 5 liters of Plasmalyte @ 125 mL/hr (01/20/2025, 2:38am, 10:02am, 7:26pm; 01/21/2025, 3:32am, 2:50pm, ongoing ). s/p 2 liters of 0.9% NS @ 999 mL/hr (01/20/2025, 8:30am, 9:36am). s/p sodium bicarbonate 8.4% (50meq) IV x 1 dose (01/20/2025, 8:30am). Acute hypovolemic hyponatremia subsequently RESOLVED, as shown above. 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 Non-surgical candidate as per [facility] @ [facility] last week. Check repeat Na level in the 01/22/2025 am. (6) Acute hypokalemia: Plan: Post-admission development of acute hypokalemia: cf., K 5.8 mmol/L (01/19/2025, 5:42pm). cf., K 5.0 mmol/L (01/20/2025, 12:21am). cf., K 4.8 mmol/L (01/20/2025, 4:16am). cf., K 4.2 mmol/L (01/20/2025, 9:44am). cf., K 4.1 mmol/L (01/20/2025, 3:34pm). cf., K 3.4 mmol/L (01/21/2025, 4:49am). Etiology of post-admission development of acute hypokalemia is probably due to decreased oral intake of potassium-containing foods. Hence, I have opted to supplement with KCl 40meq PO x 1 dose (01/21/2025, 5:24pm), and I will check repeat K level in the 01/22/2025 am. (7) Pancreatitis: Plan: Lipase 1641 U/L (01/20/2025, 12:21am). Lipase 124 U/L (01/21/2025, 4:49am). cf., CT abd/pelvis with IV contrast (01/19/2025): 1. Similar calcifications involving the tail of the pancreas and at the pancreatic head, consistent with chronic pancreatitis. 2. New peripancreatic fat stranding and edema surrounding the pancreas, consistent with acute pancreatitis. Despite the initial/admission elevation of lipase levels, and despite the radiographic findings above, I doubt that patient has acute pancreatitis as patient's physical exam on 01/21/2025 is not consistent with acute pancreatitis in that patient has no complaints of N/V/D/abdominal pain/pelvic pain. Hence, I have opted to observe this laboratory anomaly (which may be consistent with acute pancreatitis) and this radiographic finding (which may be consistent with chronic pancreatitis) without further evaluation or intervention. To this end, I have liberalized patient's NPO status to heart healthy, carbohydrate consi stent diet on 01/20/2025 dinner, and which the patient continues to tolerate very well on 01/21/2025. (8) Schizophrenia: Plan: Asymptomatic with no behavioral disturbances on 01/20/2025. Observe. Plan The patient is a 54-year-old male with a past medical history including rectal m ass, severe sepsis with septic shock requiring ICU admission from 03/08-03/13/2024, acute bilateral obstructive uropathy, hyponatremia, schizophrenia, anemia and history of lactic acidosis. The patient was brought to the emergency department due to family concerns regarding worsening confusion. The patient himself had no current complaints. Patient has a known history of rectal mass, for which he was seen at [facility] 3 days ago, and was told that he was not a candidate for surgical treatment at that time. His hemoglobin per family at that visit was 8.9, and upon arrival to the ED today, his hemoglobin is 5.8. He was also found to be hypotensive, with blood pressure 78/52, and was started on Levophed infusion at that time. He was also found to have acute kidney injury, with creatinine 1.81, and base of 0.37. [facility] Severe sepsis with septic shock/severe anemia- He received 1 L NSS from the EMS, and 1 L normal saline while in ED. He also received 1 unit of PRBCs in the ED Continue Levophed begun in ED Transfuse 2 units PRBCs Admit to the ICU NPO Hold Marko, unclear if he has been taking it, and why he was started on it last year Continue vancomycin IV and ceftriaxone IV begun in ED Pantoprazole 40 mg IV twice daily, Rectal mass- CT angiography abdomen pelvis showing significant increase in size compared to previous Was told up at [facility] that he was not currently a surgical candidate Unclear if he has been offered chemotherapy in the past Acute kidney injury- Creatinine 1.81, with base 0.37 Secondary to hypovolemia associated with anemia and dehydration Repeat laboratories in a.m. after more aggressive fluid resuscitation Electrolyte disturbances/hyperkalemia/hypomagnesemia- No signs of ectopy on monitor in the ED Potassium 5.8 on admission, likely secondary to acute kidney injury Repeat in a.m. after having received 2 L normal saline and PRBCs Magnesium sulfate 1 g IV for magnesium of 1.5 Diabetes mellitus- Hold metformin ICU protocol Admission and Anticipated Discharge Date Admission Date: January 19, 2025 Subjective "I feel good. No complaints. My dad (Ilan Denney) and mom (Eulalia Denney) are here with me today. I am happy. No problems." Review of Systems Constitutional: Negative for antecedent/coincident fevers, chills, diaphoresis, cough, wheeze, sore throat, hemoptysis, shortness of breath, dyspnea on exertion, chest pains, palpitations, pleurisy, nausea, vomiting, diarrhea, abdominal pain, pelvic pain, hematemesis, hematochezia, melena, hematuria, dysuria, frequency, urgency, headaches, dizziness, lightheadedness, visual changes, hearing changes, weakness, falls, syncope, trauma, travel history, sick contacts, or food/drug ingestions novel or new. All other review of systems are reported as negative by the patient on 01/21/2025. Physical Exam Constitutional: General: Comfortable. Wide awake and alert. Not confused, lethargic, or obtunded. Patient speaks in complete, fluent, and articulate 7-9 word sentences without pause, interruption, cough, or wheeze. HEENT: Normocephalic, atraumatic. Pupils equally round and reactive to light. Extra-ocular muscles intact. No nystagmus, gaze paresis, anisocoria, miosis, mydriasis, hyphema, scleral injection, conjunctivitis, or pterygium. No otorrhea. No pharyngeal erythema, edema, or discharge. Neck: Supple, no stridor, bruit, goiter, or hepato-jugular reflux. Jugular venous pressure is estimated to be 3 cm above the sternal angle of [place], which in turn, is 5 cm above the level of the right atrium; with jug ular venous pressure estimated to be 8 cm, then, there is no jugular venous distention on 01/21/2025. Lymphatics: No cervical (anterior/posterior), supraclavicular, infraclavicular, axillary, epitrochlear, or inguinal adenopathy. Chest: Symmetric rise and fall with respirations. Non-tender to palpation. Lungs: Clear to auscultation and percussion. No audible e xpiratory wheeze, egophony, pectoriloquy, increase in tactile fremitus, or flatness/dullness to percussion at the bases. Heart: RRR. S1 and S2 noted. No S3 or S4 summation gallop. No tripartite friction rub. Grade II/ early systolic murmur @ LLSB without radiation to the carotids, axilla, or back, and which remains invariant in regards to the respiratory cycle. Abdomen: Soft, non-tender, non-distended. No rebound, guarding, Peters's sign, or organomegaly. Bowel sounds auscultated in all 4 quadrants. LLQ colostomy in situ with no surrounding erythema, edema, induration, warmth, tenderness, crepitus, fluctuance, discharge (sanguineous, serous, suppurative), malodor, ulceration, or lymphangitic streaking. Extremities: No clubbing, cyanosis, or edema in upper extremities or lower extremities bilaterally. 2+ pedal pulses bilaterally. Skin: No decubitus ulcer or enanthem or exanthem. Stage IV rectal CA with invasion through/below pelvic floor, obturator muscles, gluteal muscles, and through the skin with a solitary, exophytic, polypoid mass exiting from left perirectal area, 5.5 cm x 3.3 cm x 3.4 cm, and no obvious signs of drainage (sanguineous, serous, suppurative) or tenderness. Genito-urinary: No urethral discharge. + chronic indwelling william catheter with cloudy urine output at 1.82 mL/kg/hr (01/20/2025, 4:58pm to 01/21/2025, 4:58pm). Neurology: No facial droop. No tremors, tics, or myoclonus. Psychiatry: Flat affect. No smile(s). Results & Data Results & Data Vital Signs (Past 12 Hours) Vital Signs Temp Pulse Pulse Resp BP Pulse Ox O2 Del Method 01/21/25 15:25 36.2 C L 105 H 18 109/66 100 Room Air 01/21/25 07:31 75 01/21/25 07:24 36.5 C 68 18 98/59 L 98 Room Air Laboratory Results WBC 22.03, N90 L3 M4, 1+ Dohle bodies, Hb 5.8, MCV 83.5, MCHC 31.0, platelet 284 (01/19/2025, 5:42pm). WBC 25.81, N91 L1 M4, Hb 8.2, MCV 81.5, MCHC 32.5, platelet 277 (01/20/2025, 4:16am). WBC 11.71, N89 L2 M6, Hb 8.3, MCV 80.6, MCHC 32.8, platelet 197 (01/21/2025, 4:49am). Procalcitonin #1 7.96 ng/mL (01/19/2025, 5:42pm). Procalcitonin #2 6.15 ng/mL (01/20/2025, 9:44am). Procalcitonin #3 3.78 ng/mL (01/21/2025, 8:49am). Lactic acid #1 5.3 mmol/L (01/19/2025, 5:42pm). Lactic acid #2 3.8 mmol/L (01/19/2025, 7:23pm). Lactic acid #3 2.7 mmol/L (01/20/2025, 12:21am). Lactic acid #4 2.8 mmol/L (01/20/2025, 9:44am). Lactic acid #5 1.5 mmol/L (01/20/2025, 3:34pm). Lactic acid #6 1.5 mmol/L (01/21/2025, 8:49am). U/A: cloudy yellow, LE 2+, nitrite-, WBC 21-50, RBC > 20, epithelial cells 0-2, bacteria 0 (01/19/2025). Urine culture (01/19/2025): 3 organisms, all moderate counts BIOfire (01/19/2025, 5:40pm): Enterobacterales+, Enterococcus faecium+, Klebsiella pneumoniae+ Blood culture #1 (01/19/2025, 5:40pm): Enterococcus faecium Blood culture #2 (01/19/2025, 5:40pm): Klebsiella pneumoniae MRSA nares PCR+ (01/19/2025, 11:40pm). VBG 7.31 / 30 / 45 / 15 / 76.2% (01/20/2025, 9:44am). INR 1.2 (01/19/2025, 5:42pm). INR 1.1 (01/20/2025, 4:16am). INR 1.3 (01/21/2025, 4:49am). K 3.4 mmol/L (01/21/2025, 4:49am). creatinine #1 1.81 mg/dL (01/19/2025, 5:42pm). creatinine #2 1.67 mg/dL (01/20/2025, 12:21am). creatinine #3 1.56 mg/dL (01/20/2025, 4:16am). creatinine #4 1.38 mg/dL (01/20/2025, 9:44am). creatinine #5 1.32 mg/dL (01/20/2025, 3:34pm). creatinine #6 1.17 mg/dL (01/21/2025, 4:49am). Mg 2.5 mg/dL (01/20/2025, 4:16am). Mg 1.9 mg/dL (01/21/2025, 4:49am). Lipase 1641 U/L (01/20/2025, 12:21am). Lipase 124 U/L (01/21/2025, 4:49am). Diagnostic Findings Portable CXR (01/19/2025, 5:38pm): 1. No infiltrate, effusion, cardiomegaly, pulmonary vascular congestion, or pneumothorax (by my review). CT abd/pelvis with IV contrast (01/19/2025, 8:30pm): 1. Previously noted soft tissue rectal mass previously filling pelvic outlet and extending below pelvic floor has expanded/invaded the obturator muscles, [id number]. Extension inferiorly below the pelvic floor with involvement of the medial aspect of the gluteal muscles bilaterally. Extension to the skin surface with a pedunculated masslike component on the left now identified measuring 5.5 x 3.3 x 3.4 cm. Heterogeneous enhancement, but no obvious active arterial extravasation internally. 2. No evidence for high-grade bowel obstruction. No evidence for intraluminal contrast extravasation within the stomach, small bowel or proximal colonic segments extending to LLL colostomy, accounting for limitations with respiratory artifact. 3. Similar calcifications involving pancreatic tail and pancreatic head consistent with chronic pancreatitis. New peripancreatic fat stranding and edema surrounding the pancreas, consistent with acute pancreatitis. 4. Moderate bilateral hydroureteronephrosis with distention of the ureters extending to the pelvic mass. Component of urinary retention is suspected from extrinsic compression by the mass. Retrograde pyelogram (01/20/2025, 12:00pm): intra-operative fluoroscopy PG Care Time/CCT Total # of Minutes Spent Total Time Spent with Patient: Total time spent is greater than 50% in coordination of care (as documented) at patient's floor/unit and/or counseling patient: Coding Level of Care Code 70005 SUB INP/OBS CARE 3/50MIN Diagnoses Severe sepsis with septic shock A41.9; R65.21 Rectal mass K62.89 Anemia D64.9 Anemia type: unspecified type Acute kidney injury N17.9 Hyponatremia E87.1 Acute hypokalemia E87.6 Pancreatitis K85.90 Schizophrenia F20.9 (3) Anemia Anemia type: unspecified type Qualified Code(s): D64.9 - Anemia, unspecified
[2025-01-21] MEDS: POTASSIUM CHLORIDE CRTAB 20 MEQ TABCR PO STA (18:09)
[2025-01-22 04:40] LABS: Hematocrit (blood only) 28.0 % (42.0-52.0); Hemoglobin 8.8 g/dl (14.0-18.0); Mean Corpuscular Hemoglobin 26.0 pg (25.0-34.0); Mean Corpuscular Volume 82.6 fL (80.0-100.0); Platelet Count 267 K/uL (130-400); RDW Standard Deviation 48.2 fL (36.4-46.3); Red Blood Count 3.39 M/uL (4.70-6.10); White Blood Count 15.50 K/ul (4.8-10.8)
[2025-01-22 04:48] LABS: INR 1.5 (0.9-1.1); Partial Thromboplastin Time 31 Seconds (21-31); Prothrombin Time 15.4 Seconds (9.0-12.0)
[2025-01-22 04:56] LABS: Immature Granulocytes # (auto) 0.29 K/uL (0.01-0.20); Immature Granulocytes % (auto) 1.9 %; Polychromasia 1+; Toxic Vacuolation 1+
[2025-01-22 05:07] LABS: Alanine Aminotransferase 18.0 U/L (7-52); Albumin Globulin Ratio 0.7 (0.9-2); Alkaline Phosphatase 120.0 U/L (34-104); Anion Gap 8.0 (3-11); Bilirubin,Total 0.3 mg/dl (0.2-1.0); Blood Urea Nitrogen 18.0 mg/dl (6-23); Calcium 8.0 mg/dl (8.6-10.3); Carbon Dioxide 22.0 mmol/L (21-32); Chloride 105.0 mmol/L (98-107); Creatinine Clr Calc Pharmacy 77.0 ml/min; Globulin 3.5 gm/dl (2.5-4.0); Glucose 123.0 mg/dl (70-99(Fasting)); Magnesium 1.4 mg/dl (1.7-2.4); Potassium 3.6 mmol/L (3.5-5.1); Sodium 135.0 mmol/L (136-145); Total Protein 5.8 gm/dl (6.0-8.3)
--- NOTE | 2025-01-22 09:36 | Pharmacy Report ---
Pharmacy PK ABX Note - Date of Service January 22, 2025 - Assessment and Plan Assessment 01/22: * Day #3 of Vanc + Zosyn. Leukocytosis slightly worse today. SCr continues to improve. Urine output excellent. Lactate and procal still elevated. * Urine culture with > 3 organisms, repeat ordered. Blood cultures still with Klebsiella pneumoniae in 1 bottle and Enterococcus faecium in 1 bottle. Sensitivities pending. Repeat blood cultures ordered today. * Vancomycin level assessed today. It is therapeutic for a random level. No change in dosing. 01/21: * Day #2 of Vancomycin and Zosyn. White count and SCr improving. Remains afebrile. * One blood culture growing Klebsiella pneumonia while the other is growing Enterococcus faecium. Sensitivities pending. * Vanc level returned high today at 24.8 mcg/mL. Urine output has been excellent. Expect SCr to continue to improve over the next 24-48 hours, baseline is near 0.5 mg/dL. Will reduce dose today and check another level tomorrow. 01/20: 54 year old M receiving Vancomycin and Zosyn for treatment of empiric sepsis. * Day #1 of antimicrobial therapy. 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 * White count worsened today, 26k. Lactate improved but still elevated. Procalcitonin improved but elevated as well. Afebrile. * Significant BUDDY upon admit, SCr 1.81 mg/dL. This has improved with most recent BMP showing a SCr of 1.38 mg/dL. Did receive 25 mg/kg loading dose in the ED. Gave a one time dose of 1250 mg this morning. * Blood cultures are growing Klebsiella pneumoniae (not ESBL) as well as Enterococcus faecium (not VRE). Given severity of illness, would prefer to be more aggressive with this patient. Urine output has been excellent today. Suspect SCr to continue to improve and be < 1 mg/dL by tomorrow morning. Therefore, will empirically start 1250 mg IV every 12 hours despite predicted AUC/HIEU at current state to be > 600. Suspect AUC will be in goal range tomorrow as long as SCr continues to improve. Will order a random level with AM labs. Plan Vancomycin * Current regimen: 750 mg IV every 12 hours * Random level obtained 01/22/25 resulted as 24 mcg/mL. This is predicted to achieve target AUC/HIEU of 400-600 mg/L.hr * Predicted AUC at steady state: 5007 mg/L.hr * Continue 750 mg IV every 12 hours * Repeat random level ordered for: 01/23/25 Zosyn * 4.5 g IV every 8 hours Pharmacy will continue to follow and will adjust dose/frequency as necessary. Thank you. Pharmacy has transitioned to AUC monitoring for vancomycin. AUC/HIEU is the preferred PK/PD target and is associated with decreased risk of nephrotoxicity compared to traditional trough targets.
[2025-01-22] MEDS: MAGNESIUM SULFATE / D5W 1 GM/100 ML BAG IV SCH (10:06)
[2025-01-22] MEDS ORDERED: MEROPENEM 1,000 MG in SYRINGE 0 ML IV SCH (11:34)
[2025-01-22] MEDS: MEROPENEM 500 MG in SYRINGE 0 ML IV SCH (12:38)
[2025-01-22] MEDS ORDERED: MEROPENEM 2,000 MG in SYRINGE 0 ML IV SCH (15:30)
[2025-01-22] MEDS ORDERED: DEXTROSE 5% IV SCH (15:45)
[2025-01-22] MEDS ORDERED: DOXYCYCLINE HYCLATE IV SCH (15:45)
[2025-01-22] MEDS ORDERED: MINI B IV SCH (15:45)
[2025-01-22] MEDS: ACETAMINOPHEN 1,000 MG/100 ML VIAL IV STA (16:40)
[2025-01-22] MEDS: MEROPENEM 2,000 MG OVER 3 HRS IV SCH (16:41)
[2025-01-22] MEDS: AMPICILLIN/SULBACTAM SOD 3,000 MG/100 ML BAG IV SCH (17:00)
--- NOTE | 2025-01-22 21:37 | Hospitalist Progress Note ---
Date of Service January 22, 2025 Assessment & Plan (1) Severe sepsis with septic shock: Plan: Severe sepsis PERSISTS on 01/22/2025, even as septic shock RESOLVED on 01/21/2025, with patient remaining afebrile and procalcitonin levels continuing to decline over the past 4 days. Severe sepsis PERSISTS on 01/22/2025, as patient suffers from chills/rigors on 01/22/2025, noting patient's increasing WBC with the concomitant appearance of 1+ toxic vacuolation, and coincident lactic acid levels increasing on 01/22/2025, as shown below. In addition, urine culture (01/20/2025, 12:34pm) reveals Enterococcus faecium, Enterococcus faecalis, Acinetobacter baumannii/nosocomialis. While vancomycin will cover Enterococcus faecium and Enterococcus faecalis, and while zosyn may or may not cover Klebsiella pneumoniae (as noted on 01/19/2025, 5:40pm blood culture #2 (01/19/2025, 5:40pm) pending publication of ESBL status, I surmise that zosyn probably does NOT / will NOT cover Acinetobacter baumannii/nosocomialis, and hence, I have opted to discontinue zosyn 4.5g IV q8 on 01/22/2025, 12:31pm. In its place, I have started patient on high dose unasyn 3g IV q4 (start date/times, 01/22/2025, 5:00pm, 8:38pm) and meropenem 500mg IV x 1 dose (01/22/2025, 12:38pm), followed by meropenem 2g IV q8 (01/22/2025, 4:41pm). The rationale for dual antibiotic therapy targeting Acinetobacter baumannii/nosocomialis is based on (a) 2021 [facility] antibiogram which reveals 100% sensitivity of Acinetobacter baumannii to unasyn and meropenem and (b) [employer] Guide Antimicrobial 2024 (cf., [email or web address]://[email or web address]/[email or web address] nclselhsvondx-[email or web address]-wgimvpt-pittii-nosocomialis) for critically ill patients, for whom combination therapy utilizes: (i) ampicillin 6g - sulbactam 3g IV q8h, infused over 4 hrs. (ii) meropenem 2g IV q8, infused over 3 hrs. (ii) polymyxin B 2.5mg/kg IV, infused over 2 hrs, followed by polymyxin B 1.5mg/kg IV q12, infused over 1 hr. Of note, polymyxin B is not available on hospital formulary in [facility]. Of final note, patient has received the following antibiotics while in [facility] from admission date 01/19/2025 through current date 01/22/2025: a. ceftriaxone 2g IV x 1 dose (01/19/2025, 6:22pm). b. vancomycin 1.75g IV x 1 dose (01/19/2025, 7:37pm). c. vancomycin 1.25g IV daily x 1 dose (01/20/2025, 9:38am). d. vancomycin 1g IV q12 x 2 doses (01/20/2025, 9:57pm; 01/21/2025, 3:38pm). e. vancomycin 750mg IV q12 x 4 doses (01/21/2025, 11:14am, 9:09pm; 01/22/2025, 10:06am, 9:43pm). f. zosyn 4.5g IV q 8 x 8 doses (01/20/2025, 12:35am, 5:52am, 5:20pm, 11:21pm; 01/21/2025, 6:15am, 1:37pm, 9:13pm; 01/22/2025, 5:10am). g. unasyn 3g IV q4 (start date/times, 01/22/2025, 5:00pm, 8:38pm). h. meropenem 500mg IV x 1 dose (01/22/2025, 12:38pm), followed by meropenem 2g IV q8 (01/22/2025, 4:41pm). cf., laboratory data to date: WBC 22.03, N90 L3 M4, 1+ Dohle bodies (01/19/2025, 5:42pm). WBC 25.81, N91 L1 M4, (01/20/2025, 4:16am). WBC 11.71, N89 L2 M6, (01/21/2025, 4:49am). WBC 15.50, N91 L2 M4, 1+ toxic vacuolation (01/22/2025, 4:26am). Procalcitonin #1 7.96 ng/mL (01/19/2025, 5:42pm). Procalcitonin #2 6.15 ng/mL (01/20/2025, 9:44am). Procalcitonin #3 3.78 ng/mL (01/21/2025, 8:49am). Procalcitonin #4 2.10 ng/mL (01/22/2025, 8:42am) Lactic acid #1 5.3 mmol/L (01/19/2025, 5:42pm). Lactic acid #2 3.8 mmol/L (01/19/2025, 7:23pm). Lactic acid #3 2.7 mmol/L (01/20/2025, 12:21am). Lactic acid #4 2.8 mmol/L (01/20/2025, 9:44am). Lactic acid #5 1.5 mmol/L (01/20/2025, 3:34pm). Lactic acid #6 1.5 mmol/L (01/21/2025, 8:49am). Lactic acid #7 3.5 mmol/L (01/22/2025, 8:42am). Lactic acid #8 2.9 mmol/L (01/22/2025, 12:28pm). Lactic acid #9 1.7 mmol/L (01/22/2025, 4:34pm). Urine culture (01/19/2025, time ?): 3 organisms, all moderate counts Cystoscopy with bilateral retrograde pyelograms, bilateral stent placement, evacuation of bladder, urethral dilation, cystogram, ureteral dilation Right, and aspiration of urine right (01/20/2025, 12:50pm, [facility] Urologist Dr. Sean Grant) to treat "Moderate bilateral hydroureteronephrosis with distention of the ureters extending to the pelvic mass. A component of urinary retention is suspected from extrinsic compression by the mass." (as noted on 01/19/2025, 8:30pm CT abd/pelvis with IV contrast). Urine culture (01/20/2025, 12:34pm): Enterococcus faecium, Enterococcus faecalis, Acinetobacter baumannii/nosocomialis BIOfire (01/19/2025, 5:40pm): Enterobacterales+, Enterococcus faecium+, Klebsiella pneumoniae+ Blood culture #1 (01/19/2025, 5:40pm): Enterococcus faecium, vancomycin- sensitive Blood culture #2 (01/19/2025, 5:40pm): Klebsiella pneumoniae MRSA nares PCR+ (01/19/2025, 11:40pm). VBG 7.31 / 30 / 45 / 15 / 76.2% (01/20/2025, 9:44am). creatinine #1 1.81 mg/dL (01/19/2025, 5:42pm). creatinine #2 1.67 mg/dL (01/20/2025, 12:21am). creatinine #3 1.56 mg/dL (01/20/2025, 4:16am). creatinine #4 1.38 mg/dL (01/20/2025, 9:44am). creatinine #5 1.32 mg/dL (01/20/2025, 3:34pm). creatinine #6 1.17 mg/dL (01/21/2025, 4:49am). creatinine #7 1.05 mg/dL (01/22/2025, 4:26am). Etiology of severe septic shock with end-organ failure (e.g., acute kidney injury) is due to catheter-associated UTI with hematogenous dissemination. Severe septic shock has RESOLVED, and so too has end-organ failure (e.g., acute kidney injury) RESOLVED, as shown above by the progressive decline in creatinine levels. In addition to empiric antibiotics as described above, patient has received IV fluid rehydration therapy, as shown below: s/p 1 liter of 0.9%NS @ 999 mL/hr (01/19/2025, 6:22pm). s/p 6.75 liters of Plasmalyte @ 125 mL/hr (01/20/2025, 2:38am, 10:02am, 7:26pm; 01/21/2025, 3:32am, 2:50pm, 01/22/2025, 12:17am). s/p 2 liters of 0.9% NS @ 999 mL/hr (01/20/2025, 8:30am, 9:36am). s/p sodium bicarbonate 8.4% (50meq) IV x 1 dose (01/20/2025, 8:30am). s/p norepinephrine infusion @ 0.05 ug/kg/min (01/19/2025, 6:21am), off at 01/20/2025, 3:00am. Continue midodrine 10mg PO tid (01/20/2025, 8:45am) while holding OFF further IV fluid rehydration therapy on 01/22/2025, given the potential for further IV fluid rehydration therapy to cause further increases in heart rate, if not precipitation of acute cardio-pulmonary embarrassment. Check vitals, genito-urinary exam, WBC w/diff, creatinine, lactic acid, procalcitonin, blood culture #1 and #2 (01/19/2025, 5:40pm) in the 01/23/2025 am. Hold off pressors as per patient's sister, Ms. Tami Guerrero ( ), who also requested that patient's code status be revised from FULL CODE @ parents' home to DNR/DNI @ [facility] ICU bed #E102-1 on 01/20/2025. Patient was subsequently transferred OUT of [facility] ICU bed #E102-1 and INTO [facility] Med-Surg without telemetry bed #W255-2 on 01/20/2025. Patient was subsequently transferred to [facility] Med-Surg with telemetry bed #N287-2 on 01/22/2025 given increasing HR 120-130 bpm range on 01/22/2025, and which is due to persistence of severe sepsis, most probably due to Acinetobacter baumannii/nosocomialis- mediated CAUTI. (2) Rectal mass: Plan: Stage IV rectal CA with invasion through/below pelvic floor, obturator muscles, gluteal muscles, and through the skin with a solitary, exophytic, polypoid mass exiting from left perirectal area, 5.5 cm x 3.3 cm x 3.4 cm, and no obvious signs of drainage (sanguineous, serous, suppurative) or tenderness. Non-surgical candidate as per [facility] @ [facility] last week. Observe. (3) Anemia: Plan: Hb 5.8, MCV 83.5, MCHC 31.0 (01/19/2025, 5:42pm). Hb 8.2, MCV 81.5, MCHC 32.5 (01/20/2025, 4:16am). Hb 8.3, MCV 80.6, MCHC 32.8 (01/21/2025, 4:49am). Hb 8.8, MCV 82.6, MCHC 31.4 (01/22/2025, 4:26am). cf., baseline Hb range, 8.8 - 9.5 g/dL (02/03/2024 - 03/13/2024). Etiology of acute blood loss anemia remains unclear and will not be evaluated procedurally while in [facility]. Instead, patient's sister, Ms. Tami Guerrero ( ), has requested that treatment of acute blood loss anemia be limited to checking repeat Hb level in the 01/23/2025 am, and reserving packed RBC transfusion(s) for Hb level less than 7 g/dL. (4) Acute kidney injury: Plan: Acute kidney injury has RESOLVED, as shown be decline in creatinine levels back to normal, as shown below: creatinine 1.81, GFR 43.9 (01/19/2025, 5:42pm). creatinine 2.10, GFR ___ (01/19/2025, 5:53pm). creatinine 1.67, GFR 48.3 (01/20/2025, 12:21am). creatinine 1.56, GFR 52.5 (01/20/2025, 4:16am). creatinine 1.38, GFR 60.8 (01/20/2025, 9:44am). creatinine 1.32, GFR 64.1 (01/20/2025, 3:34pm). creatinine 1.17, GFR 74.1 (01/21/2025, 4:49am). creatinine 1.05, GFR 84.4 (01/22/2025, 4:26am). Etiology of end-organ failure (e.g., acute kidney injury) was due to severe septic shock, which in turn, leads to acute tubular necrosis (aka, ATN). Of note, severe septic shock is due to catheter-associated UTI with hematogenous dissemination. Hence, the treatment of end-organ failure (e.g., acute kidney injury) involves IV antibiotics and IV fluids, as described below: a. ceftriaxone 2g IV x 1 dose (01/19/2025, 6:22pm). b. vancomycin 1.75g IV x 1 dose (01/19/2025, 7:37pm). c. vancomycin 1.25g IV daily x 1 dose (01/20/2025, 9:38am). d. vancomycin 1g IV q12 x 2 doses (01/20/2025, 9:57pm; 01/21/2025, 3:38pm). e. vancomycin 750mg IV q12 x 4 doses (01/21/2025, 11:14am, 9:09pm; 01/22/2025, 10:06am, 9:43pm). f. zosyn 4.5g IV q 8 x 8 doses (01/20/2025, 12:35am, 5:52am, 5:20pm, 11:21pm; 01/21/2025, 6:15am, 1:37pm, 9:13pm; 01/22/2025, 5:10am). g. unasyn 3g IV q4 (start date/times, 01/22/2025, 5:00pm, 8:38pm). h. meropenem 500mg IV x 1 dose (01/22/2025, 12:38pm), followed by meropenem 2g IV q8 (01/22/2025, 4:41pm). s/p 1 liter of 0.9%NS @ 999 mL/hr (01/19/2025, 6:22pm). s/p 6.75 liters of Plasmalyte @ 125 mL/hr (01/20/2025, 2:38am, 10:02am, 7:26pm; 01/21/2025, 3:32am, 2:50pm, 01/22/2025, 12:17am). s/p 2 liters of 0.9% NS @ 999 mL/hr (01/20/2025, 8:30am, 9:36am). s/p sodium bicarbonate 8.4% (50meq) IV x 1 dose (01/20/2025, 8:30am). s/p norepinephrine infusion @ 0.05 ug/kg/min (01/19/2025, 6:21am), off at 01/20/2025, 3:00am. Continue midodrine 10mg PO tid (01/20/2025, 8:45am) while holding OFF further IV fluid rehydration therapy on 01/22/2025, given the potential for further IV fluid rehydration therapy to cause further increases in heart rate, if not precipitation of acute cardio-pulmonary embarrassment. Check vitals, genito-urinary exam, WBC w/diff, creatinine, lactic acid, procalcitonin, blood culture #1 and #2 (01/19/2025, 5:40pm) in the 01/23/2025 am. Hold off pressors as per patient's sister, Ms. Tami Guerrero ( ), who also requested that patient's code status be revised from FULL CODE @ parents' home to DNR/DNI @ [facility] ICU bed #E102-1 on 01/20/2025. Patient was subsequently transferred OUT of [facility] ICU bed #E102-1 and INTO [facility] Med-Surg without telemetry bed #W255-2 on 01/20/2025. Patient was subsequently transferred to [facility] Med-Surg with telemetry bed #N287-2 on 01/22/2025 given increasing HR 120-130 bpm range on 01/22/2025, and which is due to persistence of severe sepsis, most probably due to Acinetobacter baumannii/nosocomialis- mediated CAUTI. (5) Hyponatremia: Plan: Acute hypovolemic hyponatremia has RESOLVED, as shown below: Na 121 mmol/L (01/19/2025, 5:42pm). Na 123 mmol/L (01/19/2025, 5:53pm). Na 125 mmol/L (01/20/2025, 12:21am). Na 127 mmol/L (01/20/2025, 4:16am). Na 133 mmol/L (01/20/2025, 9:44am). Na 136 mmol/L (01/20/2025, 3:34pm). Na 142 mmol/L (01/21/2025, 4:49am). Na 135 mmol/L (01/22/2025, 4:26am). cf., baseline Na range, 124-135 mmol/L (02/03/2024 - 03/13/2024). Etiology of acute hypovolemic hyponatremia was most probably due to acute dehydration, which in turn, is due to increased insensible losses of water and Na, due to acute catheter-associated UTI. s/p 1 liter of 0.9%NS @ 999 mL/hr (01/19/2025, 6:22pm). s/p 5 liters of Plasmalyte @ 125 mL/hr (01/20/2025, 2:38am, 10:02am, 7:26pm; 01/21/2025, 3:32am, 2:50pm, ongoing ). s/p 2 liters of 0.9% NS @ 999 mL/hr (01/20/2025, 8:30am, 9:36am). s/p sodium bicarbonate 8.4% (50meq) IV x 1 dose (01/20/2025, 8:30am). Acute hypovolemic hyponatremia subsequently RESOLVED, as shown above. 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 Non-surgical candidate as per [facility] @ [facility] last week. Check repeat Na level in the 01/22/2025 am. (6) Acute hypokalemia: Plan: Post-admission development of acute hypokalemia: cf., K 5.8 mmol/L (01/19/2025, 5:42pm). cf., K 5.0 mmol/L (01/20/2025, 12:21am). cf., K 4.8 mmol/L (01/20/2025, 4:16am). cf., K 4.2 mmol/L (01/20/2025, 9:44am). cf., K 4.1 mmol/L (01/20/2025, 3:34pm). cf., K 3.4 mmol/L (01/21/2025, 4:49am). cf., K 3.6 mmol/L (01/22/2025, 4:26am). Etiology of post-admission development of acute hypokalemia is probably due to (a) decreased oral intake of potassium-containing foods, and (b) acute CAUTI- mediated bernabe-uresis. Hence, I opted to supplement with KCl 40meq PO x 1 dose (01/21/2025, 5:24pm), and acute hypokalemia RESOLVED, as shown above. I will check repeat K level in the 01/23/2025 am. (7) Hypomagnesemia: Plan: cf., Mg 2.5 mg/dL (01/20/2025, 4:16am). cf., Mg 1.9 mg/dL (01/21/2025, 4:49am). cf., Mg 1.4 mg/dL (01/22/2025, 4:26am). Etiology of post-admission development of acute hypomagnesemia is probably due to (a) decreased oral intake of magnesium-containing foods, and (b) acute CAUTI- mediated magne-uresis. Hence, I have opted to supplement with magnesium sulfate 1g IV x 3 doses (01/22/2025, 10:06am, 12:11pm, 2:24pm). I will check repeat Mg level in the 01/23/2025 am. (8) Pancreatitis: Plan: Lipase 1641 U/L (01/20/2025, 12:21am). Lipase 124 U/L (01/21/2025, 4:49am). cf., CT abd/pelvis with IV contrast (01/19/2025): 1. Similar calcifications involving the tail of the pancreas and at the pancreatic head, consistent with chronic pancreatitis. 2. New peripancreatic fat stranding and edema surrounding the pancreas, consistent with acute pancreatitis. Despite the initial/admission elevation of lipase levels, and despite the radiographic findings above, I doubt that patient has acute pancreatitis as patient's physical exams on 01/21/2025 - 01/22/2025 are not consistent with acute pancreatitis in that patient has no complaints of N/V/D/abdominal pain/pelvic pain. Hence, I have opted to observe this laboratory anomaly (which may be consistent with acute pancreatitis) and this radiographic finding (which may be consistent with chronic pancreatitis) without further evaluation or intervention. To this end, I have liberalized patient's NPO status to heart healthy, carbohydrate consistent diet on 01/20/2025 dinner, and which the patient continues to tolerate very well on 01/21/2025 - 01/22/2025.. (9) Schizophrenia: Plan: Asymptomatic with no behavioral disturbances on 01/20/2025 - 01/22/2025. Observe. Plan The patient is a 54-year-old male with a past medical history including rectal mass, severe sepsis with septic shock requiring ICU admission from 03/08-03/13/2024, acute bilateral obstructive uropathy, hyponatremia, schizophrenia, anemia and history of lactic acidosis. The patient was brought to the emergency department due to family concerns regarding worsening confusion. The patient himself had no current complaints. Patient has a known history of rectal mass, for which he was seen at [facility] 3 days ago, and was told that he was not a candidate for surgical treatment at that time. His hemoglobin per family at that visit was 8.9, and upon arrival to the ED today, his hemoglobin is 5.8. He was also found to be hypotensive, with blood pressure 78/52, and was started on Levophed infusion at that time. He was also found to have acute kidney injury, with creatinine 1.81, and base of 0.37. He was referred to the [facility]ist service for admission to the ICU Severe sepsis with septic shock/severe anemia- He received 1 L NSS from the EMS, and 1 L normal saline while in ED. He also received 1 unit of PRBCs in the ED Continue Levophed begun in ED Transfuse 2 units PRBCs Admit to the ICU NPO Hold Eliquis, unclear if he has been taking it, and why he was started on it last year Continue vancomycin IV and ceftriaxone IV begun in ED Pantoprazole 40 mg IV twice daily, Rectal mass- CT angiography abdomen pelvis showing significant increase in size compared to previous Was told up at [facility] that he was not currently a surgical candidate Unclear if he has been offered chemotherapy in the past Acute kidney injury- Creatinine 1.81, with base 0.37 Secondary to hypovolemia associated with anemia and dehydration Repeat laboratories in a.m. after more aggressive fluid resuscitation Electrolyte disturbances/hyperkalemia/hypomagnesemia- No signs of ectopy on monitor in the ED Potassium 5.8 on admission, likely secondary to acute kidney injury Repeat in a.m. after having received 2 L normal saline and PRBCs Magnesium sulfate 1 g IV for magnesium of 1.5 Diabetes mellitus- Hold metformin ICU protocol Admission and Anticipated Discharge Date Admission Date: January 19, 2025 Subjective "I feel a little chilly. Other than that, I feel good. No complaints today. My sisters (Tami Guerrero and Jeannie Driscoll) and my parents (Ilan and Eulalia Denney) and my cousins (Yosvany and Gordo) are coming by to see me again today. That makes me happy." Review of Systems Constitutional: Positive for chills/rigors while huddling underneath bedsheet in a warm room on 01/22/2025. Negative for antecedent/coincident fevers, diaphoresis, cough, wheeze, sore throat, hemoptysis, shortness of breath, dyspnea on exertion, chest pains, palpitations, pleurisy, nausea, vomiting, diarrhea, abdominal pain, pelvic pain, hematemesis, hematochezia, melena, hematuria, dysuria, frequency, urgency, headaches, dizziness, lightheadedness, visual changes, hearing changes, weakness, falls, syncope, trauma, travel history, sick contacts, or food/drug ingestions novel or new. All other review of systems are reported as negative by the patient on 01/22/2025. Physical Exam Constitutional: General: Comfortable but chilly with rigors on 01/22/2025, 8:31am. Wide awake and alert. Not confused, lethargic, or obtunded. Patient speaks in complete, fluent, and articulate 7-9 word sentences without pause, interruption, cough, or wheeze. HEENT: Normocephalic, atraumatic. Pupils equally round and reactive to light. Extra-ocular muscles intact. No nystagmus, gaze paresis, anisocoria, miosis, mydriasis, hyphema, scleral injection, conjunctivitis, or pterygium. No otorrhea. No pharyngeal erythema, edema, or discharge. Neck: Supple, no stridor, bruit, goiter, or hepato-jugular reflux. Jugular venous pressure is estimated to be 3 cm above the sternal angle of [place], which in turn, is 5 cm above the level of the right atrium; with jugular venous pressure estimated to be 8 cm, then, there is no jugular venous distention on 01/22/2025. Lymphatics: No cervical (anterior/posterior), supraclavicular, infraclavicular, axillary, epitrochlear, or inguinal adenopathy. Chest: Symmetric rise and fall with respirations. Non-tender to palpation. Lungs: Clear to auscultation and percussion. No audible expiratory wheeze, egophony, pectoriloquy, increase in tactile fremitus, or flatness/dullness to percussion at the bases. Heart: RRR. S1 and S2 noted. No S3 or S4 summation gallop. No tripartite friction rub. Grade II/ early systolic murmur @ LLSB without radiation to the carotids, axilla, or back, and which remains invariant in regards to the respiratory cycle. Abdomen: Soft, non-tender, non-distended. No rebound, guarding, Peters's sign, or organomegaly. Bowel sounds auscultated in all 4 quadrants. LLQ colostomy in situ with no surrounding erythema, edema, induration, warmth, tenderness, crepitus, fluctuance, discharge (sanguineous, serous, suppurative), malodor, ulceration, or lymphangitic streaking. Extremities: No clubbing, cyanosis, or edema in upper extremities or lower extremities bilaterally. 2+ pedal pulses bilaterally. Skin: No decubitus ulcer or enanthem or exanthem. Stage IV rectal CA with invasion through/below pelvic floor, obturator muscles, gluteal muscles, and through the skin with a solitary, exophytic, polypoid mass exiting from left perirectal area, 5.5 cm x 3.3 cm x 3.4 cm, and no obvious signs of drainage (sanguineous, serous, suppurative) or tenderness. Genito-urinary: No urethral discharge. + chronic indwelling william catheter with cloudy urine output at 1.82 mL/kg/hr (01/20/2025, 4:58pm to 01/21/2025, 4:58pm). Neurology: No facial droop. No tremors, tics, or myoclonus. Psychiatry: Flat affect. No smile(s). Results & Data Results & Data Vital Signs (Past 12 Hours) Vital Signs Temp Pulse Pulse Pulse Resp BP BP 01/22/25 19:30 36.5 C 87 18 109/70 01/22/25 18:13 126 H 01/22/25 15:09 36.7 C 122 H 24 113/74 01/22/25 15:05 01/22/25 13:40 36.9 C 117 H 30 H 117/71 Pulse Ox O2 Del Method 01/22/25 19:30 98 Room Air 01/22/25 18:13 01/22/25 15:09 100 Room Air 01/22/25 15:05 Room Air 01/22/25 13:40 100 Room Air Laboratory Results WBC 22.03, N90 L3 M4, 1+ Dohle bodies, Hb 5.8, MCV 83.5, MCHC 31.0, platelet 284 (01/19/2025, 5:42pm). WBC 25.81, N91 L1 M4, Hb 8.2, MCV 81.5, MCHC 32.5, platelet 277 (01/20/2025, 4:16am). WBC 11.71, N89 L2 M6, Hb 8.3, MCV 80.6, MCHC 32.8, platelet 197 (01/21/2025, 4:49am). WBC 15.50, N91 L2 M4, 1+ toxic vacuolation, Hb 8.8, MCV 82.6, MCHC 31.4, platelet 267 (01/22/2025, 4:26am). Procalcitonin #1 7.96 ng/mL (01/19/2025, 5:42pm). Procalcitonin #2 6.15 ng/mL (01/20/2025, 9:44am). Procalcitonin #3 3.78 ng/mL (01/21/2025, 8:49am). Procalcitonin #4 2.10 ng/mL (01/22/2025, 8:42am). Lactic acid #1 5.3 mmol/L (01/19/2025, 5:42pm). Lactic acid #2 3.8 mmol/L (01/19/2025, 7:23pm). Lactic acid #3 2.7 mmol/L (01/20/2025, 12:21am). Lactic acid #4 2.8 mmol/L (01/20/2025, 9:44am). Lactic acid #5 1.5 mmol/L (01/20/2025, 3:34pm). Lactic acid #6 1.5 mmol/L (01/21/2025, 8:49am). Lactic acid #7 3.5 mmol/L (01/22/2025, 8:42am). Lactic acid #8 2.9 mmol/L (01/22/2025, 12:28pm). Lactic acid #9 1.7 mmol/L (01/22/2025, 4:34pm). U/A: cloudy yellow, LE 2+, nitrite-, WBC 21-50, RBC > 20, epithelial cells 0-2, bacteria 0 (01/19/2025). Urine culture (01/19/2025, time ?): 3 organisms, all moderate counts Cystoscopy with bilateral retrograde pyelograms, bilateral stent placement, evacuation of bladder, urethral dilation, cystogram, ureteral dilation Right, and aspiration of urine right (01/20/2025, 12:50pm, [facility] Urologist Dr. Sean Grant) to treat "Moderate bilateral hydroureteronephrosis with distention of the ureters extending to the pelvic mass. A component of urinary retention is suspected from extrinsic compression by the mass." (as noted on 01/19/2025, 8:30pm CT abd/pelvis with IV contrast). Urine culture (01/20/2025, 12:34pm): Enterococcus faecium, Enterococcus faecalis, Acinetobacter baumannii/nosocomialis BIOfire (01/19/2025, 5:40pm): Enterobacterales+, Enterococcus faecium+, Klebsiella pneumoniae+ Blood culture #1 (01/19/2025, 5:40pm): Enterococcus faecium, vancomycin- sensitive Blood culture #2 (01/19/2025, 5:40pm): Klebsiella pneumoniae MRSA nares PCR+ (01/19/2025, 11:40pm). VBG 7.31 / 30 / 45 / 15 / 76.2% (01/20/2025, 9:44am). INR 1.2 (01/19/2025, 5:42pm). INR 1.1 (01/20/2025, 4:16am). INR 1.3 (01/21/2025, 4:49am). Na 121 mmol/L (01/19/2025, 5:42pm). Na 123 mmol/L (01/19/2025, 5:53pm). Na 125 mmol/L (01/20/2025, 12:21am). Na 127 mmol/L (01/20/2025, 4:16am). Na 133 mmol/L (01/20/2025, 9:44am). Na 136 mmol/L (01/20/2025, 3:34pm). Na 142 mmol/L (01/21/2025, 4:49am). Na 135 mmol/L (01/22/2025, 4:26am). K 3.4 mmol/L (01/21/2025, 4:49am). K 3.6 mmol/L (01/22/2025, 4:26am). creatinine #1 1.81 mg/dL (01/19/2025, 5:42pm). creatinine #2 1.67 mg/dL (01/20/2025, 12:21am). creatinine #3 1.56 mg/dL (01/20/2025, 4:16am). creatinine #4 1.38 mg/dL (01/20/2025, 9:44am). creatinine #5 1.32 mg/dL (01/20/2025, 3:34pm). creatinine #6 1.17 mg/dL (01/21/2025, 4:49am). creatinine #7 1.05 mg/dL (01/22/2025, 4:26am). Mg 2.5 mg/dL (01/20/2025, 4:16am). Mg 1.9 mg/dL (01/21/2025, 4:49am). Mg 1.4 mg/dL (01/22/2025, 4:26am). Lipase 1641 U/L (01/20/2025, 12:21am). Lipase 124 U/L (01/21/2025, 4:49am). Diagnostic Findings Portable CXR (01/19/2025, 5:38pm): 1. No infiltrate, effusion, cardiomegaly, pulmonary vascular congestion, or pneumothorax (by my review). CT abd/pelvis with IV contrast (01/19/2025, 8:30pm): 1. Previously noted soft tissue rectal mass previously filling pelvic outlet and extending below pelvic floor has expanded/invaded the obturator muscles, [id number]-left. Extension inferiorly below the pelvic floor with involvement of the medial aspect of the gluteal muscles bilaterally. Extension to the skin surface with a pedunculated masslike component on the left now identified measuring 5.5 x 3.3 x 3.4 cm. Heterogeneous enhancement, but no obvious active arterial extravasation internally. 2. No evidence for high-grade bowel obstruction. No evidence for intraluminal contrast extravasation within the stomach, small bowel or proximal colonic segments extending to LLL colostomy, accounting for limitations with respiratory artifact. 3. Similar calcifications involving pancreatic tail and pancreatic head consistent with chronic pancreatitis. New peripancreatic fat stranding and edema surrounding the pancreas, consistent with acute pancreatitis. 4. Moderate bilateral hydroureteronephrosis with distention of the ureters extending to the pelvic mass. Component of urinary retention is suspected from extrinsic compression by the mass. PG Care Time/CCT Total # of Minutes Spent Total Time Spent with Patient: Total time spent is greater than 50% in coordination of care (as documented) at patient's floor/unit and/or counseling patient: Coding Level of Care Code 58444 SUB INP/OBS CARE 3/50MIN Diagnoses Severe sepsis with septic shock A41.9; R65.21 Rectal mass K62.89 Anemia D64.9 Anemia type: unspecified type Acute kidney injury N17.9 Hyponatremia E87.1 Acute hypokalemia E87.6 Hypomagnesemia E83.42 Pancreatitis K85.90 Schizophrenia F20.9 (3) Anemia Anemia type: unspecified type Qualified Code(s): D64.9 - Anemia, unspecified
[2025-01-22] MEDS ORDERED: AMPICILLIN/SULBACTAM SOD 3,000 MG/100 ML BAG IV SCH (22:00)
[2025-01-23 04:30] LABS: A calco-baum cmplx NotReported DETECTED (NotDetected); Bact fragilis Not Reported Not Detected (NotDetected); Blood Culture Id Panel See PCR Comment (NotDetected); C auris Not Reported Not Detected (NotDetected); CTX-M Resistant Gene Not Detected (NotDetected); Calbicans Not Reported Not Detected (NotDetected); Candida glabrata Not Reported Not Detected (NotDetected); Candida krusei Not Reported Not Detected (NotDetected); Cneoformans/gatti Not Reported Not Detected (NotDetected); Cparapsilosis Not Reported Not Detected (NotDetected); Ctropicalis Not Reported Not Detected (NotDetected); E cloacae compx Not Reported Not Detected (NotDetected); Efaecalis Not Reported Not Detected (NotDetected); Efaecium Not Reported Not Detected (NotDetected); Enterobacterales Not Reported Not Detected (NotDetected); Escherichia coli Not Reported Not Detected (NotDetected); H influenzae Not Reported Not Detected (NotDetected); IMP Resistant Gene Not Detected (NotDetected); K aerogenes Not Reported Not Detected (NotDetected); KPC Resistant Gene Not Detected (NotDetected); Koxytoca Not Reported Not Detected (NotDetected); Kpneumoniae grp Not Reported Not Detected (NotDetected); Lmonocyt Not Reported Not Detected (NotDetected); N meningitidis Not Reported Not Detected (NotDetected); NDM Resistant Gene Not Detected (NotDetected); P aeruginosa Not Reported Not Detected (NotDetected); Proteus spp Not Reported Not Detected (NotDetected); Salmonella spp Not Reported Not Detected (NotDetected); Staph lugdunensis Not Reported Not Detected (NotDetected); Staph spp. Not Reported Not Detected (NotDetected); Staphaureus Not Reported Not Detected (NotDetected); Staphepi Not Reported Not Detected (NotDetected); Stenmaltophilia Not Reported Not Detected (NotDetected); Strep agal(GrpB) Not Reported Not Detected (NotDetected); Strep pneum Not Reported Not Detected (NotDetected); Strep pyog (GrpA) Not Reported Not Detected (NotDetected); Strep spp Not Reported Not Detected (NotDetected); VIM Resistant Gene Not Detected (NotDetected)
[2025-01-23 04:57] LABS: Creatinine Clr Calc Pharmacy 82.5 ml/min
[2025-01-23 05:00] LABS: Acinetobacter calco-baum cmplx DETECTED (NotDetected)
[2025-01-23 08:56] LABS: Hematocrit (blood only) 28.7 % (42.0-52.0); Hemoglobin 9.4 g/dl (14.0-18.0); Mean Corpuscular Hemoglobin 26.5 pg (25.0-34.0); Mean Corpuscular Volume 80.8 fL (80.0-100.0); Platelet Count 262 K/uL (130-400); RDW Standard Deviation 46.6 fL (36.4-46.3); Red Blood Count 3.55 M/uL (4.70-6.10); White Blood Count 16.68 K/ul (4.8-10.8)
[2025-01-23 09:15] LABS: Immature Granulocytes # (auto) 0.28 K/uL (0.01-0.20); Immature Granulocytes % (auto) 1.7 %; Polychromasia 1+
[2025-01-23 09:20] LABS: Anion Gap 8.0 (3-11); Blood Urea Nitrogen 9.0 mg/dl (6-23); Calcium 7.7 mg/dl (8.6-10.3); Carbon Dioxide 25.0 mmol/L (21-32); Chloride 103.0 mmol/L (98-107); Creatinine Clr Calc Pharmacy 94.9 ml/min; Glucose 113.0 mg/dl (70-99(Fasting)); Magnesium 1.5 mg/dl (1.7-2.4); Potassium 2.7 mmol/L (3.5-5.1); Sodium 136.0 mmol/L (136-145)
[2025-01-23] MEDS: POTASSIUM CHLORIDE CRTAB 20 MEQ TABCR PO STA (09:41)
[2025-01-23] MEDS: MAGNESIUM SULFATE / D5W 1 GM/100 ML BAG IV SCH (09:45)
[2025-01-23] MEDS: POTASSIUM CHLORIDE CRTAB 20 MEQ TABCR PO ONE ×2 (11:10→12:56)
--- NOTE | 2025-01-23 14:32 | Pharmacy Report ---
Pharmacy PK ABX Note - Date of Service January 23, 2025 - Assessment and Plan Assessment 01/23: * Vancomycin day 5: Reviewed vancomycin level, predicting therapeutic AUC/HIEU, continue current vancomycin regimen. Repeat blood cultures 01/22 now growing two gram negative bacilli, BCID #2 identifying Acinetobacter calcoacetius- baumannii complex with no resistance genes noted (final sensitivities pending). Dr. Saini switched to meropenem extended infusion and Unasyn for double coverage of Acinetobacter. Vancomycin for E. Faecium in blood resistant to ampicillin (Vanc HIEU=0.5). ID consult may be beneficial for long-term treatment plan. 01/22: * Day #3 of Vanc + Zosyn. Leukocytosis slightly worse today. SCr continues to improve. Urine output excellent. Lactate and procal still elevated. * Urine culture with > 3 organisms, repeat ordered. Blood cultures still with Klebsiella pneumoniae in 1 bottle and Enterococcus faecium in 1 bottle. Sensitivities pending. Repeat blood cultures ordered today. * Vancomycin level assessed today. It is therapeutic for a random level. No change in dosing. 01/21: * Day #2 of Vancomycin and Zosyn. White count and SCr improving. Remains afebrile. * One blood culture growing Klebsiella pneumonia while the other is growing Enterococcus faecium. Sensitivities pending. * Vanc level returned high today at 24.8 mcg/mL. Urine output has been excellent. Expect SCr to continue to improve over the next 24-48 hours, baseline is near 0.5 mg/dL. Will reduce dose today and check another level tomorrow. 01/20: 54 year old M receiving Vancomycin and Zosyn for treatment of empiric sepsis. * Day #1 of antimicrobial therapy. 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 * White count worsened today, 26k. Lactate improved but still elevated. Procalcitonin improved but elevated as well. Afebrile. * Significant BUDDY upon admit, SCr 1.81 mg/dL. This has improved with most recent BMP showing a SCr of 1.38 mg/dL. Did receive 25 mg/kg loading dose in the ED. Gave a one time dose of 1250 mg this morning. * Blood cultures are growing Klebsiella pneumoniae (not ESBL) as well as Enterococcus faecium (not VRE). Given severity of illness, would prefer to be more aggressive with this patient. Urine output has been excellent today. Suspect SCr to continue to improve and be < 1 mg/dL by tomorrow morning. Therefore, will empirically start 1250 mg IV every 12 hours despite predicted AUC/HIEU at current state to be > 600. Suspect AUC will be in goal range tomorrow as long as SCr continues to improve. Will order a random level with AM labs. Plan Vancomycin * Current regimen: 750 mg IV every 12 hours * Random level obtained 01/22/25 resulted as 24 mcg/mL. This is predicted to achieve target AUC/HIEU of 400-600 mg/L.hr * Predicted AUC at steady state: 5007 mg/L.hr * Continue 750 mg IV every 12 hours * Repeat random level ordered for: 01/23/25 Meropenem extended infusion * 2000mg Q8H over 3 hours Unasyn * 3gm Q4H Pharmacy will continue to follow and will adjust dose/frequency as necessary. Thank you. Pharmacy has transitioned to AUC monitoring for vancomycin. AUC/HIEU is the preferred PK/PD target and is associated with decreased risk of nephrotoxicity compared to traditional trough targets.
--- NOTE | 2025-01-23 18:35 | Hospitalist Progress Note ---
Date of Service January 23, 2025 Assessment & Plan (1) Severe sepsis with septic shock: Plan: Septic shock RESOLVED on 01/21/2025, with patient's MAP remaining consistently greater than 65 mm Hg, OFF norepinephrine infusion @ 0.05 ug/kg/min (started on 01/19/2025, 6:21am), OFF since 01/20/2025, 3:00am. Patient also remains afebrile with both procalcitonin levels continuing to decline in parallel over the past 5 days. Severe sepsis PERSISTED on 01/22/2025, as patient suffered from chills/rigors on 01/22/2025, 8:30am. I also noted patient's increasing WBC cound with the concomitant appearance of 1+ toxic vacuolation, and coincident lactic acid levels increasing on 01/22/2025, as shown below. In addition, urine culture (01/20/2025, 12:34pm) reveals vancomycin-sensitive Enterococcus faecium, vancomycin-sensitive Enterococcus faecalis, andAcinetobacter baumannii/nosocomialis with antibiotic sensitivity profile pending with initial test revealing sensitivity to amikacin, gentamicin only). While vancomycin will cover Enterococcus faecium and Enterococcus faecalis, and while zosyn will cover ciprofloxacin-resistant, otherwise agustin-sensitive Klebsiella pneumoniae (as noted on 01/19/2025, 5:40pm blood culture #2 (01/19/2025, 5:40pm), I surmised that zosyn probably does NOT / will NOT cover Acinetobacter baumannii/nosocomialis, and hence, I discontinued zosyn 4.5g IV q8 on 01/22/2025, 12:31pm. In its place, I started patient on high dose unasyn 3g IV q4 (start date/times, 01/22/2025, 5:00pm, 8:38pm) and meropenem 500mg IV x 1 dose (01/22/2025, 12:38pm), followed by meropenem 2g IV q8 (01/22/2025, 4:41pm). The rationale for dual antibiotic therapy targeting Acinetobacter baumannii/nosocomialis is based on (a) 2021 [facility] antibiogram which reveals 100% sensitivity of Acinetobacter baumannii to unasyn and meropenem. (b) [employer] Guide Antimicrobial 2024 (cf., [email or web address]) for critically ill patients, for whom combination therapy utilizes: (i) ampicillin 6g - sulbactam 3g IV q8h, infused over 4 hrs. (ii) meropenem 2g IV q8, infused over 3 hrs. (ii) polymyxin B 2.5mg/kg IV, infused over 2 hrs, followed by polymyxin B 1.5mg/kg IV q12, infused over 1 hr. Of note, polymyxin B is not available on hospital formulary in [facility]. Of final note, patient has received the following antibiotics while in [facility] from admission date 01/19/2025 through current date 01/23/2025: a. ceftriaxone 2g IV x 1 dose (01/19/2025, 6:22pm). b. vancomycin 1.75g IV x 1 dose (01/19/2025, 7:37pm). c. vancomycin 1.25g IV daily x 1 dose (01/20/2025, 9:38am). d. vancomycin 1g IV q12 x 2 doses (01/20/2025, 9:57pm; 01/21/2025, 3:38pm). e. vancomycin 750mg IV q12 x 5 doses (01/21/2025, 11:14am, 9:09pm; 01/22/2025, 10:06am, 9:43pm; 01/23/2025, 9:01am)(ongoing tx, Enterococcus faecium/faecalis UTI; Enterococcus faecium bacteremia). f. zosyn 4.5g IV q 8 x 8 doses (01/20/2025, 12:35am, 5:52am, 5:20pm, 11:21pm; 01/21/2025, 6:15am, 1:37pm, 9:13pm; 01/22/2025, 5:10am). g. unasyn 3g IV q 4 x 7 doses (01/22/2025, 5:00pm, 8:38pm, 11:26pm; 01/23/2025, 3:46am, 7:29am, 11:32am, 3:12pm)(ongoing tx, non-ESBL K. pneumoniae bacteremia; A. baumannii/nosocomialis UTI). h. meropenem 500mg IV q 8 x 1 dose (01/22/2025, 12:38pm), followed by meropenem 2g IV q8 x 4 doses (01/22/2025, 4:41pm, 11:26pm; 01/23/2025, 8:05am, 4:09pm)(ongoing tx, A. baumannii/nosocomialis UTI). cf., laboratory data to date: WBC 22.03, N90 L3 M4, 1+ Dohle bodies, Hb 5.8, MCV 83.5, MCHC 31.0, platelet 284 (01/19/2025, 5:42pm). WBC 25.81, N91 L1 M4, Hb 8.2, MCV 81.5, MCHC 32.5, platelet 277 (01/20/2025, 4:16am). WBC 11.71, N89 L2 M6, Hb 8.3, MCV 80.6, MCHC 32.8, platelet 197 (01/21/2025, 4:49am). WBC 15.50, N91 L2 M4, 1+ toxic vacuolation, Hb 8.8, MCV 82.6, MCHC 31.4, plat elet 267 (01/22/2025, 4:26am). WBC 16.68, N90 L3 M5, Hb 9.4, MCV 80.8, MCHC 32.8, platelet 262 (01/23/2025, 8:39am). Procalcitonin #1 7.96 ng/mL (01/19/2025, 5:42pm). Procalcitonin #2 6.15 ng/mL (01/20/2025, 9:44am). Procalcitonin #3 3.78 ng/mL (01/21/2025, 8:49am). Procalcitonin #4 2.10 ng/mL (01/22/2025, 8:42am). Procalcitonin #5 1.39 ng/mL (01/23/2025, 8:39am). Lactic acid #1 5.3 mmol/L (01/19/2025, 5:42pm). Lactic acid #2 3.8 mmol/L (01/19/2025, 7:23pm). Lactic acid #3 2.7 mmol/L (01/20/2025, 12:21am). Lactic acid #4 2.8 mmol/L (01/20/2025, 9:44am). Lactic acid #5 1.5 mmol/L (01/20/2025, 3:34pm). Lactic acid #6 1.5 mmol/L (01/21/2025, 8:49am). Lactic acid #7 3.5 mmol/L (01/22/2025, 8:42am). Lactic acid #8 2.9 mmol/L (01/22/2025, 12:28pm). Lactic acid #9 1.7 mmol/L (01/22/2025, 4:34pm). Lactic acid #10 1.1 mmol/L (01/23/2025, 8:39am). U/A: cloudy yellow, LE 2+, nitrite-, WBC 21-50, RBC > 20, epithelial cells 0-2, bacteria 0 (01/19/2025). Urine culture (01/19/2025, time ?): 3 organisms, all moderate counts Cystoscopy with bilateral retrograde pyelograms, bilateral stent placement, evacuation of bladder, urethral dilation, cystogram, ureteral dilation Right, and aspiration of urine right (01/20/2025, 12:50pm, [facility] Urologist Dr. Sean Grant) to treat "Moderate bilateral hydroureteronephrosis with distention of the ureters extending to the pelvic mass. A component of urinary retention is suspected from extrinsic compression by the mass." (as noted on 01/19/2025, 8:30pm CT abd/pelvis with IV contrast). Urine culture (01/20/2025, 12:34pm): Enterococcus faecium, vancomycin- sensitive Enterococcus faecalis, vancomycin-sensitive Acinetobacter baumannii/nosocomialis, (antibiotic sensitivity profile pending with initial test revealing sensitivity to amikacin, gentamicin only). [facility] (01/19/2025, 5:40pm): Enterobacterales+, Enterococcus faecium+, Klebsiella pneumoniae+ Blood culture #1 (01/19/2025, 5:40pm): Enterococcus faecium, vancomycin- sensitive Blood culture #2 (01/19/2025, 5:40pm): Klebsiella pneumoniae, ciprofloxacin- resistant, otherwise agustin-sensitive Blood culture #3 (01/22/2025, 8:42am): gram negative [place] Blood culture #4 (01/22/2025, 8:51am): gram negative coccobacilli MRSA nares PCR+ (01/19/2025, 11:40pm). creatinine #1 1.81 mg/dL (01/19/2025, 5:42pm). creatinine #2 1.67 mg/dL (01/20/2025, 12:21am). creatinine #3 1.56 mg/dL (01/20/2025, 4:16am). creatinine #4 1.38 mg/dL (01/20/2025, 9:44am). creatinine #5 1.32 mg/dL (01/20/2025, 3:34pm). creatinine #6 1.17 mg/dL (01/21/2025, 4:49am). creatinine #7 1.05 mg/dL (01/22/2025, 4:26am). creatinine #8 0.85 mg/dL (01/23/2025, 8:39am). Etiology of severe septic shock with end-organ failure (e.g., acute kidney injury) was due to catheter-associated UTI with hematogenous dissemination. Severe septic shock has RESOLVED, and so too has end-organ failure (e.g., acute kidney injury) RESOLVED, as shown above by the progressive decline in creatinine levels. In addition to empiric antibiotics as described above, patient has received IV fluid rehydration therapy, as shown below: s/p 1 liter of 0.9%NS @ 999 mL/hr (01/19/2025, 6:22pm). s/p 6.75 liters of Plasmalyte @ 125 mL/hr (01/20/2025, 2:38am, 10:02am, 7:26pm; 01/21/2025, 3:32am, 2:50pm, 01/22/2025, 12:17am). s/p 2 liters of 0.9% NS @ 999 mL/hr (01/20/2025, 8:30am, 9:36am). s/p sodium bicarbonate 8.4% (50meq) IV x 1 dose (01/20/2025, 8:30am). s/p norepinephrine infusion @ 0.05 ug/kg/min (started on 01/19/2025, 6:21am), off at 01/20/2025, 3:00am. Continue midodrine 10mg PO tid (01/20/2025, 8:45am) while holding OFF further IV fluid rehydration therapy on 01/22/2025 - 01/23/2025, given the potential for further IV fluid rehydration therapy to cause further increases in heart rate, if not precipitation of acute cardio-pulmonary embarrassment. Check vitals, genito-urinary exam, WBC w/diff, creatinine, lactic acid, procalcitonin, urine culture (01/20/2025, 12:34pm)(to see which antibiotics A. baumannii/nosocomialis is sensitive to), blood culture #3 (01/22/2025, 8:42am), blood culture #4 (01/22/2025, 8:51am) in the 01/24/2025 am. In the interim, patient clinically appears significantly improved with resolution of chills within 24 hours of having started: g. unasyn 3g IV q 4 x 7 doses (01/22/2025, 5:00pm, 8:38pm, 11:26pm; 01/23/2025, 3:46am, 7:29am, 11:32am, 3:12pm)(ongoing tx, non-ESBL K. pneumoniae bacteremia; A. baumannii/nosocomialis UTI). h. meropenem 500mg IV q 8 x 1 dose (01/22/2025, 12:38pm), followed by meropenem 2g IV q8 x 4 doses (01/22/2025, 4:41pm, 11:26pm; 01/23/2025, 8:05am, 4:09pm)(ongoing tx, A. baumannii/nosocomialis UTI). Hence, I have opted to continue dual antibiotic therapy utilizing unasyn 3g IV q4 and meropenem 2g IV q8 to treat non-ESBL K. pneumoniae bacteremia; A. baumannii/nosocomialis UTI. Hence, I have opted to continue monotherapy utilizing vancomycin 750mg IV q12 to treat Enterococcus faecium/faecalis UTI; Enterococcus faecium bacteremia. Of the 4 microbes listed above, only A. baumannii/nosocomialis presents a potential clinical challenge despite historical data @ [facility] (cf., 2021 [facility] antibiogram which reveals 100% sensitivity of Acinetobacter baumannii to unasyn and meropenem). To this end, I await final antibiotic sensitivity profile of A. baumannii/nosocomialis UTI (as noted on 01/20/2025, 12:34pm urine culture with initial test revealing sensitivity to amikacin, gentamicin only as these preliminary in vitro results do not jibe with patient's in vivo clinical exam/appearance on 01/23/2025, and hence, I am continuing to treat patient empirically with unasyn 3g IV q4 and meropenem 2g IV q8 as they appear to be working much better than zosyn 4.5g IV q8. Stay tuned. Of incidental note, patient's sisters, Ms. Jeannie Driscoll ( ) and Ms. Tami Guerrero ( ), requested that patient's code status be revised from FULL CODE @ parents' home to DNR/DNI @ [facility] ICU bed #[id number] on 01/20/2025, as well as to hold OFF any further IV pressor support. Patient was subsequently transferred from [facility] ICU bed #E102-1 to [facility] Med-Surg without telemetry bed #[id number] on 01/20/2025. Patient was subsequently transferred from [facility] Med-Surg without telemetry bed #[id number] to [facility] Med-Surg with telemetry bed #[id number] on 01/22/2025 given increasing HR 120-130 bpm range on 01/22/2025, and which is due to persistence of severe sepsis, most probably due to Acinetobacter baumannii/nosocomialis-mediated CAUTI, R/O Acinetobacter baumannii/nosocomialis-associated bacteremia. Of final note, patient should remain in [facility] Med-Surg with telemetry bed #[id number] until antibiotic treatment of Acinetobacter baumannii/nosocomialis-mediated CAUTI, R/O Acinetobacter baumannii/nosocomialis- associated bacteremia, is 100% complete, and NOT discharged to SNF to complete antibiotic treatment via PICC/midline, given the high morbidity and higher mortality associated with this most formidable bug. (2) Rectal mass: Plan: Stage IV rectal CA with invasion through/below pelvic floor, obturator muscles, gluteal muscles, and through the skin with a solitary, exophytic, polypoid mass exiting from left perirectal area, 5.5 cm x 3.3 cm x 3.4 cm, and no obvious signs of drainage (sanguineous, serous, suppurative) or tenderness. Non-surgical candidate as per [facility] @ [facility] last week. Observe. (3) Anemia: Plan: Hb 5.8, MCV 83.5, MCHC 31.0 (01/19/2025, 5:42pm). Hb 8.2, MCV 81.5, MCHC 32.5 (01/20/2025, 4:16am). Hb 8.3, MCV 80.6, MCHC 32.8 (01/21/2025, 4:49am). Hb 8.8, MCV 82.6, MCHC 31.4 (01/22/2025, 4:26am). Hb 9.4, MCV 80.8, MCHC 32.8 (01/23/2025, 8:39am). cf., baseline Hb range, 8.8 - 9.5 g/dL (02/03/2024 - 03/13/2024). Etiology of acute blood loss anemia remains unclear and will not be evaluated procedurally while in [facility]. Instead, patient's sister, Ms. Tami Guerrero ( ), has requested that treatment of acute blood loss anemia be limited to checking repeat Hb level in the 01/24/2025 am, and reserving packed RBC transfusion(s) for Hb level less than 7 g/dL. (4) Acute kidney injury: Plan: Acute kidney injury has RESOLVED, as shown be decline in creatinine levels back to normal, as shown below: creatinine 1.81, GFR 43.9 (01/19/2025, 5:42pm). creatinine 2.10, GFR ___ (01/19/2025, 5:53pm). creatinine 1.67, GFR 48.3 (01/20/2025, 12:21am). creatinine 1.56, GFR 52.5 (01/20/2025, 4:16am). creatinine 1.38, GFR 60.8 (01/20/2025, 9:44am). creatinine 1.32, GFR 64.1 (01/20/2025, 3:34pm). creatinine 1.17, GFR 74.1 (01/21/2025, 4:49am). creatinine 1.05, GFR 84.4 (01/22/2025, 4:26am). creatinine 0.85, GFR 103.3 (01/23/2025, 8:39am). Etiology of end-organ failure (e.g., acute kidney injury) was due to severe septic shock, which in turn, leads to acute tubular necrosis (aka, ATN). Of note, severe septic shock is due to catheter-associated UTI with hematogenous dissemination. Hence, the treatment of end-organ failure (e.g., acute kidney injury) involves IV antibiotics and IV fluids, as described below: a. ceftriaxone 2g IV x 1 dose (01/19/2025, 6:22pm). b. vancomycin 1.75g IV x 1 dose (01/19/2025, 7:37pm). c. vancomycin 1.25g IV daily x 1 dose (01/20/2025, 9:38am). d. vancomycin 1g IV q12 x 2 doses (01/20/2025, 9:57pm; 01/21/2025, 3:38pm). e. vancomycin 750mg IV q12 x 5 doses (01/21/2025, 11:14am, 9:09pm; 01/22/2025, 10:06am, 9:43pm; 01/23/2025, 9:01am)(ongoing tx, Enterococcus faecium/faecalis UTI; Enterococcus faecium bacteremia). f. zosyn 4.5g IV q 8 x 8 doses (01/20/2025, 12:35am, 5:52am, 5:20pm, 11:21pm; 01/21/2025, 6:15am, 1:37pm, 9:13pm; 01/22/2025, 5:10am). g. unasyn 3g IV q 4 x 7 doses (01/22/2025, 5:00pm, 8:38pm, 11:26pm; 01/23/2025, 3:46am, 7:29am, 11:32am, 3:12pm)(ongoing tx, non-ESBL K. pneumoniae bacteremia; A. baumannii/nosocomialis UTI). h. meropenem 500mg IV q 8 x 1 dose (01/22/2025, 12:38pm), followed by meropenem 2g IV q8 x 4 doses (01/22/2025, 4:41pm, 11:26pm; 01/23/2025, 8:05am, 4:09pm)(ongoing tx, A. baumannii/nosocomialis UTI). s/p 1 liter of 0.9%NS @ 999 mL/hr (01/19/2025, 6:22pm). s/p 6.75 liters of Plasmalyte @ 125 mL/hr (01/20/2025, 2:38am, 10:02am, 7:26pm; 01/21/2025, 3:32am, 2:50pm, 01/22/2025, 12:17am). s/p 2 liters of 0.9% NS @ 999 mL/hr (01/20/2025, 8:30am, 9:36am). s/p sodium bicarbonate 8.4% (50meq) IV x 1 dose (01/20/2025, 8:30am). s/p norepinephrine infusion @ 0.05 ug/kg/min (01/19/2025, 6:21am), off at 01/20/2025, 3:00am. Continue midodrine 10mg PO tid (01/20/2025, 8:45am) while holding OFF further IV fluid rehydration therapy on 01/22/2025 - 01/23/2025, given the potential for further IV fluid rehydration therapy to cause further increases in heart rate, if not precipitation of acute cardio-pulmonary embarrassment. Check vitals, genito-urinary exam, WBC w/diff, creatinine, lactic acid, procalcitonin, blood culture #1 and #2 (01/19/2025, 5:40pm) in the 01/24/2025 am. Of incidental note, patient's sisters, Ms. Jeannie Driscoll ( ) and Ms. Tami Guerrero ( ), requested that patient's code status be revised from FULL CODE @ parents' home to DNR/DNI @ [facility] ICU bed #E102-1 on 01/20/2025, as well as to hold OFF any further IV pressor support. Patient was subsequently transferred from [facility] ICU bed #E102-1 to [facility] Med-Surg without telemetry bed #[id number] on 01/20/2025. Patient was subsequently transferred from [facility] Med-Surg without telemetry bed #[id number] to [facility] Med-Surg with telemetry bed #[id number] on 01/22/2025 given increasing HR 120-130 bpm range on 01/22/2025, and which is due to persistence of severe sepsis, most probably due to Acinetobacter baumannii/nosocomialis-mediated CAUTI. (5) Hyponatremia: Plan: Acute hypovolemic hyponatremia has RESOLVED, as shown below: Na 121 mmol/L (01/19/2025, 5:42pm). Na 123 mmol/L (01/19/2025, 5:53pm). Na 125 mmol/L (01/20/2025, 12:21am). Na 127 mmol/L (01/20/2025, 4:16am). Na 133 mmol/L (01/20/2025, 9:44am). Na 136 mmol/L (01/20/2025, 3:34pm). Na 142 mmol/L (01/21/2025, 4:49am). Na 135 mmol/L (01/22/2025, 4:26am). Na 136 mmol/L (01/23/2025, 8:39am). cf., baseline Na range, 124-135 mmol/L (02/03/2024 - 03/13/2024). Etiology of acute hypovolemic hyponatremia was most probably due to acute dehydration, which in turn, is due to increased insensible losses of water and Na, due to acute catheter-associated UTI. s/p 1 liter of 0.9%NS @ 999 mL/hr (01/19/2025, 6:22pm). s/p 5 liters of Plasmalyte @ 125 mL/hr (01/20/2025, 2:38am, 10:02am, 7:26pm; 01/21/2025, 3:32am, 2:50pm, ongoing ). s/p 2 liters of 0.9% NS @ 999 mL/hr (01/20/2025, 8:30am, 9:36am). s/p sodium bicarbonate 8.4% (50meq) IV x 1 dose (01/20/2025, 8:30am). Acute hypovolemic hyponatremia subsequently RESOLVED, as shown above. Check repeat Na level in the 01/24/2025 am, for any recurrence of acute hypovolemic hyponatremia. 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 Non-surgical candidate as per [facility] @ [facility] last week. (6) Acute hypokalemia: Plan: Post-admission development of acute hypokalemia: cf., K 5.8 mmol/L (01/19/2025, 5:42pm). cf., K 5.0 mmol/L (01/20/2025, 12:21am). cf., K 4.8 mmol/L (01/20/2025, 4:16am). cf., K 4.2 mmol/L (01/20/2025, 9:44am). cf., K 4.1 mmol/L (01/20/2025, 3:34pm). cf., K 3.4 mmol/L (01/21/2025, 4:49am). cf., K 3.6 mmol/L (01/22/2025, 4:26am). cf., K 2.7 mmol/L (01/23/2025, 8:39am). Etiology of post-admission development of acute hypokalemia is probably due to (a) decreased oral intake of potassium-containing foods, and (b) acute CAUTI- mediated bernabe-uresis. Hence, I opted to supplement with KCl 40meq PO x 1 dose (01/21/2025, 5:24pm), and acute hypokalemia RESOLVED, with post-supplement K 3.6 mmol/L (01/22/2025, 4:26am). Acute hypokalemia RECURRED overnight with repeat K 2.7 mmol/L (01/23/2025, 8:39am). Hence, I opted to supplement with KCl 40meq PO x 3 doses (01/23/2025, 9:41am, 11:10am, 12:56pm). I will check repeat K level in the 01/24/2025 am. (7) Hypomagnesemia: Plan: cf., Mg 2.5 mg/dL (01/20/2025, 4:16am). cf., Mg 1.9 mg/dL (01/21/2025, 4:49am). cf., Mg 1.4 mg/dL (01/22/2025, 4:26am). cf., Mg 1.5 mg/dL (01/23/2025, 8:39am). Etiology of post-admission development of acute hypomagnesemia is probably due to (a) decreased oral intake of magnesium-containing foods, and (b) acute CAUTI- mediated magne-uresis. Hence, I opted to supplement with magnesium sulfate 1g IV x 3 doses (01/22/2025, 10:06am, 12:11pm, 2:24pm), and acute hypomagnesemia PERSISTS with post- supplement Mg 1.5 mg/dL (01/23/2025, 8:39am). Hence, I opted to supplement with magnesium sulfate 1g IV x 4 doses (01/23/2025, 9:45am, 11:45am, 1:45pm, 4:09pm). I will check repeat Mg level in the 01/24/2025 am. (8) Pancreatitis: Plan: Lipase 1641 U/L (01/20/2025, 12:21am). Lipase 124 U/L (01/21/2025, 4:49am). cf., CT abd/pelvis with IV contrast (01/19/2025): 1. Similar calcifications involving the tail of the pancreas and at the pancreatic head, consistent with chronic pancreatitis. 2. New peripancreatic fat stranding and edema surrounding the pancreas, consistent with acute pancreatitis. Despite the initial/admission elevation of lipase levels, and despite the radiographic findings above, I doubt that patient has acute pancreatitis as patient's physical exams on 01/21/2025 - 01/22/2025 are not consistent with acute pancreatitis in that patient has no complaints of N/V/D/abdominal pain/pelvic pain. Hence, I have opted to observe this laboratory anomaly (which may be consistent with acute pancreatitis) and this radiographic finding (which may be consistent with chronic pancreatitis) without further evaluation or intervention. To this end, I liberalized patient's NPO status to a heart healthy, carbohydrate consistent diet starting with the 01/20/2025 dinner, and which the patient continues to tolerate very well on 01/21/2025 - 01/24/2025.. (9) Sarcopenia: Plan: Despite a normal BMI 21.4 (height 177.8 cm; weight 67.5 kg), patient appears cachectic and remains hypoalbuminemic. cf., albumin 2.1 g/dL (01/19/2025, 5:42pm). cf., albumin 2.0 g/dL (01/20/2025, 4:16am). cf., albumin 2.2 g/dL (01/21/2025, 4:49am). cf., albumin 2.3 g/dL (01/22/2025, 4:26am). cf., albumin (01/23/2025, 8:39am). Cachexia is consistent with patient's stage IV rectal CA, "previously filling pelvic outlet and extending below pelvic floor has expanded/invaded the obturator muscles, [id number]-left. Extension inferiorly below the pelvic floor with involvement of the medial aspect of the gluteal muscles bilaterally. Extension to the skin surface with a pedunculated masslike component on the left now identified measuring 5.5 x 3.3 x 3.4 cm." (as reported on 01/19/2025, 8:30pm CT abd/pelvis with IV contrast). Cachexia is medicated by cachectin (e.g., TNF alpha), and which leads to sarcopenia. To mitigate sarcopenia, then, patient has been encouraged to incorporate muscle- building foods (e.g., beans/lentils, eggs, chicken, omaira seeds, Japanese yogurt, nuts, fatty fish like sardines/tuna, sprouted chickpeas, and tofu) into his spartan diet as these foods are all budget-friendly and [id number], while continuing to enjoy his thrice daily orange sherbet x 2 cups with meals, and which will help him to combat sarcopenia and mitigate future fall(s) at his parents' home in [place], [place], one meal at a time. (10) Schizophrenia: Plan: Asymptomatic with no behavioral disturbances on 01/20/2025 - 01/24/2025. Observe. Plan The patient is a 54-year-old male with a past medical history including rectal mass, severe sepsis with septic shock requiring ICU admission from 03/08-03/13/2024, acute bilateral obstructive uropathy, hyponatremia, schizophrenia, anemia and history of lactic acidosis. The patient was brought to the emergency department due to family concerns regarding worsening confusion. The patient himself had no current complaints. Patient has a known history of rectal mass, for which he was seen at [facility] days ago, and was told that he was not a candidate for surgical treatment at that time. His hemoglobin per family at that visit was 8.9, and upon arrival to the ED today, his hemoglobin is 5.8. He was also found to be hypotensive, with blood pressure 78/52, and was started on Levophed infusion at that time. He was also found to have acute kidney injury, with creatinine 1.81, and base of 0.37. He was referred to the [facility] for admission to the ICU Severe sepsis with septic shock/severe anemia- He received 1 L NSS from the EMS, and 1 L normal saline while in ED. He also received 1 unit of PRBCs in the ED Continue Levophed begun in ED Transfuse 2 units PRBCs Admit to the ICU NPO Hold Eliquis, unclear if he has been taking it, and why he was started on it last year Continue vancomycin IV and ceftriaxone IV begun in ED Pantoprazole 40 mg IV twice daily, Rectal mass- CT angiography abdomen pelvis showing significant increase in size compared to previous [facility] [facility] that he was not currently a surgical candidate Unclear if he has been offered chemotherapy in the past Acute kidney injury- Creatinine 1.81, with base 0.37 Secondary to hypovolemia associated with anemia and dehydration Repeat laboratories in a.m. after more aggressive fluid resuscitation Electrolyte disturbances/hyperkalemia/hypomagnesemia- No signs of ectopy on monitor in the ED Potassium 5.8 on admission, likely secondary to acute kidney injury Repeat in a.m. after having received 2 L normal saline and PRBCs Magnesium sulfate 1 g IV for magnesium of 1.5 Diabetes mellitus- Hold metformin ICU protocol Admission and Anticipated Discharge Date Admission Date: January 19, 2025 Subjective "I feel 90% better than yesterday. I feel fine today. No complaints. I had chicken for dinner; it was very good. The orange sherbet you gave me was even better." Review of Systems Constitutional: Negative for antecedent/coincident fevers, chills, diaphoresis, cough, wheeze, sore throat, hemoptysis, shortness of breath, dyspnea on exertion, chest pains, palpitations, pleurisy, nausea, vomiting, diarrhea, abdominal pain, pelvic pain, hematemesis, hematochezia, melena, hematuria, dysuria, frequency, urgency, headaches, dizziness, lightheadedness, visual changes, hearing changes, weakness , falls, syncope, trauma, travel history, sick contacts, or food/drug ingestions novel or new. All other review of systems are reported as negative by the patient on 01/23/2025. Physical Exam Constitutional: General: Comfortable but chilly with rigors on 01/22/2025, 8:31am. Wide awake and alert. Not confused, lethargic, or obtunded. Patient speaks in complete, fluent, and articulate 7-9 word sentences without pause, interruption, cough, or wheeze. HEENT: Normocephalic, atraumatic. Pupils equally round and reactive to light. Extra-ocular muscles intact. No nystagmus, gaze paresis, anisocoria, miosis, mydriasis, hyphema, scleral injection, conjunctivitis, or pterygium. No otorrhea. No pharyngeal erythema, edema, or discharge. Neck: Supple, no stridor, bruit, goiter, or hepato-jugular reflux. Jugular venous pressure is estimated to be 3 cm above the sternal angle of [place], which in turn, is 5 cm above the level of the right atrium; with jugular venous pressure estimated to be 8 cm, then, there is no jugular venous distention on 01/22/2025. Lymphatics: No cervical (anterior/posterior), supraclavicular, infraclavicular, axillary, epitrochlear, or inguinal adenopathy. Chest: Symmetric rise and fall with respirations. Non-tender to palpation. Lungs: Clear to auscultation and percussion. No audible expiratory wheeze, egophony, pectoriloquy, increase in tactile fremitus, or flatness/dullness to percussion at the bases. Heart: RRR. S1 and S2 noted. No S3 or S4 summation gallop. No tripartite friction rub. Grade II/ early systolic murmur @ LLSB without radiation to the carotids, axilla, or back, and which remains invariant in regards to the respiratory cycle. Abdomen: Soft, non-tender, non-distended. No rebound, guarding, Peters's sign, or organomegaly. Bowel sounds auscultated in all 4 quadrants. LLQ colostomy in situ with no surrounding erythema, edema, induration, warmth, tenderness, crepitus, fluctuance, discharge (sanguineous, serous, suppurative), malodor, ulceration, or lymphangitic streaking. Extremities: No clubbing, cyanosis, or edema in upper extremities or lower extremities bilaterally. 2+ pedal pulses bilaterally. Skin: No decubitus ulcer or enanthem or exanthem. Stage IV rectal CA with invasion through/below pelvic floor, obturator muscles, gluteal muscles, and through the skin with a solitary, exophytic, polypoid mass exiting from left perirectal area, 5.5 cm x 3.3 cm x 3.4 cm, and no obvious signs of drainage (sanguineous, serous, suppurative) or tenderness. Genito-urinary: No urethral discharge. + chronic indwelling william catheter with cloudy urine output at 1.82 mL/kg/hr (01/20/2025, 4:58pm to 01/21/2025, 4:58pm). Neurology: No facial droop. No tremors, tics, or myoclonus. Psychiatry: Flat affect. No smile(s). Results & Data Results & Data Vital Signs (Past 12 Hours) Vital Signs Temp Pulse Pulse Resp BP Pulse Ox O2 Del Method 01/23/25 16:32 36.5 C 90 16 118/73 98 Room Air 01/23/25 13:00 107 H 01/23/25 11:34 36.7 C 109 H 16 119/76 96 Room Air 01/23/25 08:19 36.6 C 109 H 16 118/74 100 Room Air 01/23/25 07:30 Room Air Laboratory Results WBC 22.03, N90 L3 M4, 1+ Dohle bodies, Hb 5.8, MCV 83.5, MCHC 31.0, platelet 284 (01/19/2025, 5:42pm). WBC 25.81, N91 L1 M4, Hb 8.2, MCV 81.5, MCHC 32.5, platelet 277 (01/20/2025, 4:16am). WBC 11.71, N89 L2 M6, Hb 8.3, MCV 80.6, MCHC 32.8, platelet 197 (01/21/2025, 4:49am). WBC 15.50, N91 L2 M4, 1+ toxic vacuolation, Hb 8.8, MCV 82.6, MCHC 31.4, platelet 267 (01/22/2025, 4:26am). WBC 16.68, N90 L3 M5, Hb 9.4, MCV 80.8, MCHC 32.8, platelet 262 (01/23/2025, 8:39am). Procalcitonin #1 7.96 ng/mL (01/19/2025, 5:42pm). Procalcitonin #2 6.15 ng/mL (01/20/2025, 9:44am). Procalcitonin #3 3.78 ng/mL (01/21/2025, 8:49am). Procalcitonin #4 2.10 ng/mL (01/22/2025, 8:42am). Procalcitonin #5 1.39 ng/mL (01/23/2025, 8:39am). Lactic acid #1 5.3 mmol/L (01/19/2025, 5:42pm). Lactic acid #2 3.8 mmol/L (01/19/2025, 7:23pm). Lactic acid #3 2.7 mmol/L (01/20/2025, 12:21am). Lactic acid #4 2.8 mmol/L (01/20/2025, 9:44am). Lactic acid #5 1.5 mmol/L (01/20/2025, 3:34pm). Lactic acid #6 1.5 mmol/L (01/21/2025, 8:49am). Lactic acid #7 3.5 mmol/L (01/22/2025, 8:42am). Lactic acid #8 2.9 mmol/L (01/22/2025, 12:28pm). Lactic acid #9 1.7 mmol/L (01/22/2025, 4:34pm). Lactic acid #10 1.1 mmol/L (01/23/2025, 8:39am). U/A: cloudy yellow, LE 2+, nitrite-, WBC 21-50, RBC > 20, epithelial cells 0-2, bacteria 0 (01/19/2025). Urine culture (01/19/2025, time ?): 3 organisms, all moderate counts Cystoscopy with bilateral retrograde pyelograms, bilateral stent placement, evacuation of bladder, urethral dilation, cystogram, ureteral dilation Right, and aspiration of urine right (01/20/2025, 12:50pm, [facility] Urologist Dr. Sean Grant) to treat "Moderate bilateral hydroureteronephrosis with distention of the ureters extending to the pelvic mass. A component of urinary retention is suspected from extrinsic compression by the mass." (as noted on 01/19/2025, 8:30pm CT abd/pelvis with IV contrast). Urine culture (01/20/2025, 12:34pm): Enterococcus faecium, vancomycin- sensitive Enterococcus faecalis, vancomycin-sensitive Acinetobacter baumannii/nosocomialis, (antibiotic sensitivity profile pending with initial test revealing sensitivity to amikacin, gentamicin only). [facility] (01/19/2025, 5:40pm): Enterobacterales+, Enterococcus faecium+, Klebsiella pneumoniae+ Blood culture #1 (01/19/2025, 5:40pm): Enterococcus faecium, vancomycin-sensit jessica Blood culture #2 (01/19/2025, 5:40pm): Klebsiella pneumoniae, ciprofloxacin- resistant, otherwise agustin-sensitive Blood culture #3 (01/22/2025, 8:42am): gram negative [place] Blood culture #4 (01/22/2025, 8:51am): gram negative coccobacilli MRSA nares PCR+ (01/19/2025, 11:40pm). VBG 7.31 / 30 / 45 / 15 / 76.2% (01/20/2025, 9:44am). INR 1.2 (01/19/2025, 5:42pm). INR 1.1 (01/20/2025, 4:16am). INR 1.3 (01/21/2025, 4:49am). Na 121 mmol/L (01/19/2025, 5:42pm). Na 123 mmol/L (01/19/2025, 5:53pm). Na 125 mmol/L (01/20/2025, 12:21am). Na 127 mmol/L (01/20/2025, 4:16am). Na 133 mmol/L (01/20/2025, 9:44am). Na 136 mmol/L (01/20/2025, 3:34pm). Na 142 mmol/L (01/21/2025, 4:49am). Na 135 mmol/L (01/22/2025, 4:26am). Na 136 mmol/L (01/23/2025, 8:39am). K 3.4 mmol/L (01/21/2025, 4:49am). K 3.6 mmol/L (01/22/2025, 4:26am). K 2.7 mmol/L (01/23/2025, 8:39am). creatinine #1 1.81 mg/dL (01/19/2025, 5:42pm). creatinine #2 1.67 mg/dL (01/20/2025, 12:21am). creatinine #3 1.56 mg/dL (01/20/2025, 4:16am). creatinine #4 1.38 mg/dL (01/20/2025, 9:44am). creatinine #5 1.32 mg/dL (01/20/2025, 3:34pm). creatinine #6 1.17 mg/dL (01/21/2025, 4:49am). creatinine #7 1.05 mg/dL (01/22/2025, 4:26am). creatinine #8 0.85 mg/dL (01/23/2025, 8:39am). Mg 2.5 mg/dL (01/20/2025, 4:16am). Mg 1.9 mg/dL (01/21/2025, 4:49am). Mg 1.4 mg/dL (01/22/2025, 4:26am). Mg 1.5 mg/dL (01/23/2025, 8:39am). Ca 8.9 mg/dL, albumin 2.1 g/dL (01/19/2025, 5:42pm). Ca 9.2 mg/dL (01/20/2025, 12:21am). Ca 9.4 mg/dL, albumin 2.0 g/dL (01/20/2025, 4:16am). Ca 8.8 mg/dL (01/20/2025, 9:44am). Ca 8.9 mg/dL, albumin 2.2 g/dL (01/21/2025, 4:49am). Ca 8.0 mg/dL, albumin 2.3 g/dL (01/22/2025, 4:26am). Ca 7.7 mg/dL, albumin (01/23/2025, 8:39am). Lipase 1641 U/L (01/20/2025, 12:21am). Lipase 124 U/L (01/21/2025, 4:49am). Diagnostic Findings Portable CXR (01/19/2025, 5:38pm): 1. No infiltrate, effusion, cardiomegaly, pulmonary vascular congestion, or pneumothorax (by my review). CT abd/pelvis with IV contrast (01/19/2025, 8:30pm): 1. Previously noted soft tissue rectal mass previously filling pelvic outlet and extending below pelvic floor has expanded/invaded the obturator muscles, [id number]-left. Extension inferiorly below the pelvic floor with involvement of the medial aspect of the gluteal muscles bilaterally. Extension to the skin surface with a pedunculated masslike component on the left now identified measuring 5.5 x 3.3 x 3.4 cm. Heterogeneous enhancement, but no obvious active arterial extravasation internally. 2. No evidence for high-grade bowel obstruction. No evidence for intraluminal contrast extravasation within the stomach, small bowel or proximal colonic segments extending to LLL colostomy, accounting for limitations with respiratory artifact. 3. Similar calcifications involving pancreatic tail and pancreatic head consistent with chronic pancreatitis. New peripancreatic fat stranding and edema surrounding the pancreas, consistent with acute pancreatitis. 4. Moderate bilateral hydroureteronephrosis with distention of the ureters extending to the pelvic mass. Component of urinary retention is suspected from extrinsic compression by the mass. PG Care Time/CCT Total # of Minutes Spent Total Time Spent with Patient: Total time spent is greater than 50% in coordination of care (as documented) at patient's floor/unit and/or counseling patient: Coding Level of Care Code 00878 SUB INP/OBS CARE 50MIN Diagnoses Severe sepsis with septic shock A41.9; R65.21 Rectal mass K62.89 Anemia D64.9 Anemia type: unspecified type Acute kidney injury N17.9 Hyponatremia E87.1 Acute hypokalemia E87.6 Hypomagnesemia E83.42 Pancreatitis K85.90 Sarcopenia M62.84 Schizophrenia F20.9 (3) Anemia Anemia type: unspecified type Qualified Code(s): D64.9 - Anemia, unspecified
[2025-01-24 05:59] LABS: Hematocrit (blood only) 28.4 % (42.0-52.0); Hemoglobin 9.2 g/dl (14.0-18.0); Immature Granulocytes # (auto) 0.33 K/uL (0.01-0.20); Immature Granulocytes % (auto) 2.4 %; Mean Corpuscular Hemoglobin 26.5 pg (25.0-34.0); Mean Corpuscular Volume 81.8 fL (80.0-100.0); Platelet Count 287 K/uL (130-400); RDW Standard Deviation 47.3 fL (36.4-46.3); Red Blood Count 3.47 M/uL (4.70-6.10); White Blood Count 13.50 K/ul (4.8-10.8)
[2025-01-24 06:25] LABS: Anion Gap 8.0 (3-11); Blood Urea Nitrogen 8.0 mg/dl (6-23); Calcium 7.7 mg/dl (8.6-10.3); Carbon Dioxide 24.0 mmol/L (21-32); Chloride 103.0 mmol/L (98-107); Creatinine Clr Calc Pharmacy 110.4 ml/min; Glucose 124.0 mg/dl (70-99(Fasting)); Magnesium 1.8 mg/dl (1.7-2.4); Potassium 3.4 mmol/L (3.5-5.1); Sodium 135.0 mmol/L (136-145)
[2025-01-24] MEDS: VANCOMYCIN LEVEL ONE (09:19)
--- NOTE | 2025-01-24 09:41 | Pharmacy Report ---
Pharmacy PK ABX Note - Date of Service January 24, 2025 - Assessment and Plan Assessment 01/24: * Vancomycin day 6: Serum creatinine further improved this AM, [employer] predicting subtherapeutic AUC/HIEU, stat level ordered to better guide dosing. Level returned therapeutic, but still predicting subtherapeutic AUC/HIEU at steady state. Will increase vancomycin dose with tonight dose as AM dose has already started. Will aim for more aggressive dosing due to severity of infection. 01/23: * Vancomycin day 5: Reviewed vancomycin level, predicting therapeutic AUC/HIEU, continue current vancomycin regimen. Repeat blood cultures 01/22 now growing two gram negative bacilli, BCID #2 identifying Acinetobacter calcoacetius- baumannii complex with no resistance genes noted (final sensitivities pending). Dr. Saini switched to meropenem extended infusion and Unasyn for double coverage of Acinetobacter. Vancomycin for E. Faecium in blood resistant to ampicillin (Vanc HIEU=0.5). ID consult may be beneficial for long-term treatment plan. 01/22: * Day #3 of Vanc + Zosyn. Leukocytosis slightly worse today. SCr continues to improve. Urine output excellent. Lactate and procal still elevated. * Urine culture with > 3 organisms, repeat ordered. Blood cultures still with Klebsiella pneumoniae in 1 bottle and Enterococcus faecium in 1 bottle. Sensitivities pending. Repeat blood cultures ordered today. * Vancomycin level assessed today. It is therapeutic for a random level. No change in dosing. 01/21: * Day #2 of Vancomycin and Zosyn. White count and SCr improving. Remains afebrile. * One blood culture growing Klebsiella pneumonia while the other is growing Enterococcus faecium. Sensitivities pending. * Vanc level returned high today at 24.8 mcg/mL. Urine output has been excellent. Expect SCr to continue to improve over the next 24-48 hours, baseline is near 0.5 mg/dL. Will reduce dose today and check another level tomorrow. 01/20: 54 year old M receiving Vancomycin and Zosyn for treatment of empiric sepsis. * Day #1 of antimicrobial therapy. PMHx significant for rectal mass, no ch emo/radiation, non-operable. * White count worsened today, 26k. Lactate improved but still elevated. Procalcitonin improved but elevated as well. Afebrile. * Significant BUDDY upon admit, SCr 1.81 mg/dL. This has improved with most recent BMP showing a SCr of 1.38 mg/dL. Did receive 25 mg/kg loading dose in the ED. Gave a one time dose of 1250 mg this morning. * Blood cultures are growing Klebsiella pneumoniae (not ESBL) as well as Enterococcus faecium (not VRE). Given severity of illness, would prefer to be more aggressive with this patient. Urine output has been excellent today. Suspect SCr to continue to improve and be < 1 mg/dL by tomorrow morning. Therefore, will empirically start 1250 mg IV every 12 hours despite predicted AUC/HIEU at current state to be > 600. Suspect AUC will be in goal range tomorrow as long as SCr continues to improve. Will order a random level with AM labs. Plan Vancomycin * Current regimen: 750 mg IV every 12 hours * Random level obtained 01/24/25 resulted as 15.7 mcg/mL. Predicted AUC at steady state: 399 mg/L.hr * Increase to vancomycin 1000 mg IV every 12 hours * Repeat random level ordered for: 01/25/25 with AM labs Meropenem extended infusion * 2000mg Q8H over 3 hours Unasyn * 3gm Q4H Pharmacy will continue to follow and will adjust dose/frequency as necessary. Thank you. Pharmacy has transitioned to AUC monitoring for vancomycin. AUC/HIEU is the preferred PK/PD target and is associated with decreased risk of nephrotoxicity compared to traditional trough targets.
[2025-01-24] MEDS ORDERED: AMIKACIN CONSULT ACTIVE PRN (10:50)
--- NOTE | 2025-01-24 11:02 | Infectious Disease Consult ---
Date of Consultation January 24, 2025 Assessment & Plan (1) Carbapenem-resistant Acinetobacter baumannii infection: (2) Bacteremia due to Enterococcus: (3) Bacteremia due to Klebsiella pneumoniae: (4) Complicated UTI (urinary tract infection): (5) Rectal mass: Plan Problems: #Polymicrobial bacteremia 2/2 urinary obstruction: carbapenem-resistant Acinetobacter baumannii, E faecium (vanc-S), Kleb pneumo #Bilateral hydroureteronephrosis 2/2 pelvic mass s/p bilateral ureteral stents (01/20/25): UCx with Acinetobacter baumannii, E faecalis, E faecium #Rectal cancer with large pelvic mass, progression despite radiation and 8 cycles of FOLFOX Micro: 01/22 BCx x2: Acinetobacter baumannii in 2/4 bottles 01/20 UCx: Acinetobacter baumannii #1 (S amikacin, gent, tobra), Acinetobacter baumannii #2 (S amikacin, gent. I tobra), E faecalis (S amp, vanc), E faecium (S vanc. R amp) 01/19 UCx: mixed maurice 01/19 BCx x2: Kleb pneumo in 1/4 bottles (R cipro, otherwise S), E faecium in 1/4 bottles (S vanc, R amp) Abx: Amp-sul 3 g q4h 01/22 - 01/24, 9 g q8h 01/24 - present Dapto 01/24 - present Amikacin x 1 01/24 Meropenem 01/22 - 01/24 Vanc 01/19 - 01/24 Zosyn 01/20 - 01/22 Ceftriaxone 01/19 54 yo M with rectal cancer with colostomy s/p radiation and completed 8 cycles of FOLFOX (09/20/24) with disease progression despite treatment, schizophrenia, HTN, DM2 who presented on 01/19 with worsening confusion, hypotension, found to have polymicrobial bacteremia (XDR Acinetobacter baumannii, E faecium, Kleb pneumo) likely 2/2 bilateral hydroureteronephrosis from obstructing pelvic mass, s/p bilateral ureteral stents (01/20/25). Pt has several recent admissions for septic shock. Was admitted to [facility] 11/07-11/17 with septic shock and UTI, with MRSA and XDR Acinetobacter bacteremia (S to gent only). Unclear source of infection, and mediport was removed. Did have new mild bilateral hydroureteronephrosis due to obstructing mass. Was treated with vanc and Xacduro. PICC line was placed, and he was discharged to rehab on vancomycin x 2 weeks. KAYA with no vegetations. Then admitted to [facility] 12/01-12/22 with Citrobacter and vanc resistant E faecalis bacteremia, concern for infected necrotic components of rectal mass seen on CT, moderate bilateral hydronephrosis 2/2 mass effect. It appears he was discharged on suppressive amoxicillin and ciprofloxacin. Per colorectal surgery note from clinic visit on 01/17, felt to have likely unresectable rectal cancer, and that he was an overall poor surgical candidate given malnutrition and anemia and deconditioning. On presentation, pt was afebrile, HR 122, BP 86/60, RR 22, 95% on room air. Labs showed WBC 22.03, Hb 5.8, Cr 1.81, Na 121, K 6, lactate 5.3, procal 7.96. UA with 21-50 WBCs. CXR with suspected mild pulm edema. CTA AP with enlarging soft tissue rectal mass, chronic pancreatitis with new peripancreatic fat stranding and edema surrounding the pancreas c/w acute pancreatitis, and moderate bilateral hydroureteronephrosis with distension of the ureters extending to the pelvic mass. Pt was started on vanc, Zosyn, Levophed. Urology was consulted and took the pt to the OR on 01/20 for dilation of R mid ureter stricture and urethral stricture, bilateral ureteral stent placement. Urine from R kidney was aspirate and sent for culture, which grew carbapenem-resistant Acinetobacter baumannii, E faecalis, E faecium. Admission blood cultures growing E faecium in 1/4 bottles and Kleb pneumo in 1/4 bottles. Weaned off Levophed on 01/20 AM. Zosyn was changed to amp-sulbactam 3 g q4h and meropenem on 01/22. BCx from 01/22 growing Acinetobacter baumannii in 2/4 bottles. Recommendations: -For carbapenem-resistant Acinetobacter baumannii: -Changed amp-sulbactam to 9 g q8h extended infusion over 4 hours -Started tigecycline 200 mg x 1, followed by 100 mg q12h -Ordered a 1 time dose of amikacin 15 mg/kg -Changed vanc to daptomycin 12 mg/kg IV q24h (easier to dose, and do not always trust vanc susceptibility for E faecium. Also has a history of vanc-resistant E faecalis bacteremia in November 2024). Baseline CK 17 on 01/24/25 -Ordered a repeat set of blood cultures Will continue to follow. Consultation Information This patient recommendation is based on a telemedicine consult request which was completed asynchronously through chart review and information provided by the primary physician. The patient was not seen or examined today. The evaluation is consultative in nature and all patient care and treatment decisions can either be accepted or rejected by the patient's primary hospital-based treating physician using their own independent medical judgment for their patient. Instructional Services Specialist contact information: Please call [facility] Call Center . (Phone Number For Physician Use Only) Time Spent Reviewing Chart: 31+ minutes History of Present Illness Reason for Consultation: Bacteremia Attending Physician: Raoul Nam MD History of Present Illness 54 yo M with rectal cancer with colostomy s/p radiation and completed 8 cycles of FOLFOX (09/20/24) with disease progression despite treatment, schizophrenia, HTN, DM2 who presented on 01/19 with worsening confusion, hypotension. Pt has several recent admissions for septic shock. Was admitted to [facility] 11/07-11/17 with septic shock and UTI, with MRSA and XDR Acinetobacter bacteremia (S to gent only). Unclear source of infection, and mediport was removed. Did have new mild bilateral hydroureteronephrosis due to obstructing mass. Was treated with vanc and Xacduro. PICC line was placed, and he was discharged to rehab on vancomycin x 2 weeks. KAYA with no vegetations. Then admitted to [facility] 12/01-12/22 with Citrobacter and vanc resistant E faecalis bacteremia, concern for infected necrotic components of rectal mass seen on CT, moderate bilateral hydronephrosis 2/2 mass effect. It appears he was discharged on suppressive amoxicillin and ciprofloxacin. Per colorectal surgery note from clinic visit on 01/17, felt to have likely unresectable rectal cancer, and that he was an overall poor surgical candidate given malnutrition and anemia and deconditioning. On presentation, pt was afebrile, HR 122, BP 86/60, RR 22, 95% on room air. Labs showed WBC 22.03, Hb 5.8, Cr 1.81, Na 121, K 6, lactate 5.3, procal 7.96. UA with 21-50 WBCs. CXR with suspected mild pulm edema. CTA AP with enlarging soft tissue rectal mass, chronic pancreatitis with new peripancreatic fat stranding and edema surrounding the pancreas c/w acute pancreatitis, and moderate bilateral hydroureteronephrosis with distension of the ureters extending to the pelvic mass. Pt was started on vanc, Zosyn, Levophed. Urology was consulted and took the pt to the OR on 01/20 for dilation of R mid ureter stricture and urethral stricture, bilateral ureteral stent placement. Urine from R kidney was aspirate and sent for culture, which grew Acinetobacter baumannii, E faecalis, E faecium. Admission blood cultures growing E faecium in 1/4 bottles and Kleb pneumo in 1/4 bottles. Weaned off Levophed on 01/20 AM. Zosyn was changed to amp- sulbactam 3 g q4h and meropenem on 01/22. BCx from 01/22 growing Acinetobacter baumannii in 2/4 bottles. Allergies Allergy/AdvReac Type Severity Reaction Status Date / Time aspirin Allergy Mild Unknown Unverified 03/07/24 22:24 Penicillins Allergy Mild Unknown Verified 03/07/24 22:24 cefepime Allergy Confusion Verified 01/19/25 18:53 Home Medications Medication Instructions Recorded Confirmed Type levothyroxine 50 mcg tablet 50 mcg PO DAILYBB 02/03/24 01/19/25 History metformin 500 mg tablet,extended 500 mg PO QAM 02/03/24 01/19/25 History release 24 hr risperidone 2 mg tablet 2 mg PO HS 02/03/24 01/19/25 History venlafaxine 75 mg capsule,extended 150 mg PO QAM 02/03/24 01/19/25 History release 24 hr (Effexor XR) apixaban 5 mg tablet (Eliquis) 5 mg PO BID 03/07/24 01/19/25 History folic acid 1 mg tablet 1 mg PO QAM 03/07/24 01/19/25 History thiamine HCl (vitamin B1) 100 mg 100 mg PO DAILY 03/07/24 01/19/25 History tablet ammonium lactate 12 % lotion 1 applic topical BID 01/19/25 01/19/25 History cephalexin 500 mg capsule 500 mg PO BID 01/19/25 01/19/25 History cholecalciferol (vitamin D3) 25 25 mcg PO DAILY 01/19/25 01/19/25 History mcg (1,000 unit) capsule (Vitamin D3) ciprofloxacin HCl 250 mg tablet 250 mg PO Q12H 01/19/25 01/19/25 History magnesium oxide 400 mg PO DAILY 01/19/25 01/19/25 History metoprolol succinate 25 mg 12.5 mg PO DAILY 01/19/25 01/19/25 History tablet,extended release 24 hr midodrine 10 mg tablet 10 mg PO TIDM 01/19/25 01/19/25 History nystatin 100,000 unit/gram topical 1 applic topical BID 01/19/25 01/19/25 History cream pantoprazole 40 mg tablet,delayed 40 mg PO DAILY 01/19/25 01/19/25 History release potassium chloride 20 mEq 20 meq PO DAILY 01/19/25 01/19/25 History tablet,extended release(part/cryst) Patient History Medical History Hypokalemia Acute kidney injury Acute hyponatremia Sepsis Hypothyroid Social History Smoking Status: Never smoker Second Hand Exposure: No; Do You Dip or Chew Tobacco: No; Tobacco Cessation Education Requested by Patient: No Hx Alcohol Use: No Hx Substance Use: No Preferred Language: Kazakh Communication Ability: Effective Features Reporter Required: No Beliefs That Will Affect Care: Spiritual Current Living Situation: Family Other Information That Helps Us Care for You: No Feels Safe at Home: Yes Safety Concerns: Feels Safe At This Time Assistive Devices: None Review of System Pt was not seen Physical Exam Physical Exam: Pt was not seen Results & Data Vital Signs (Past 12 Hours) Vital Signs Temp Pulse Pulse Resp BP Pulse Ox O2 Del Method 01/24/25 08:18 36.4 C L 96 H 17 118/76 100 Room Air 01/24/25 07:20 Room Air 01/24/25 05:43 105 H 01/24/25 04:15 36.8 C 83 18 121/75 97 Room Air Laboratory Results Short CBC 01/24/25 Range/Units 05:37 WBC 13.50 H (4.8-10.8) K/ul Hgb 9.2 L (14.0-18.0) g/dl Hct 28.4 L (42.0-52.0) % Plt Count 287 (130-400) K/uL BMP 01/24/25 05:37 Sodium 135 L Potassium 3.4 L D Chloride 103 Carbon Dioxide 24 BUN 8 Creatinine 0.73 Glucose 124 H Calcium 7.7 L Liver Function 01/23/25 Range/Units 19:01 Albumin 2.3 L (3.4-5.0) gm/dl Medications Administered Current Inpatient Medications Ampicillin Sodium/Sulbactam Sodium (Unasyn) 3,000 mg in 100 mls @ 200 mls/hr IV Q4H BHAKTI; Protocol Stop: 02/01/25 15:59 Last Infusion: 01/24/25 07:46 Dose: Infused Amikacin Sulfate 1,000 mg/ (Dextrose) 254 mls @ 250 mls/hr IV ONCE ONE Stop: 01/24/25 12:00 Last Admin: 01/24/25 11:27 Dose: 250 mls/hr Daptomycin 800 mg/ Syringe 16 mls @ 8 mls/min IV Q24H BHAKTI; Protocol Stop: 02/07/25 10:59 Tigecycline 100 mg/ Dextrose 110 mls @ 200 mls/hr IV Q12H BHAKTI Stop: 02/07/25 22:59 Tigecycline 200 mg/ Dextrose 270 mls @ 270 mls/hr IV ONE STA Stop: 01/24/25 12:20 Midodrine (Midodrine Hcl 10 Mg Tab) 10 mg PO TIDM BHAKTI Stop: 02/19/25 07:59 Last Admin: 01/24/25 11:16 Dose: 10 mg
[2025-01-24] MEDS ORDERED: DEXTROSE 5% IV STA (11:05)
[2025-01-24] MEDS ORDERED: TIGECYCLINE IV STA (11:05)
[2025-01-24] MEDS: DEXTROSE 5% IV ONE (11:27)
[2025-01-24] MEDS: AMIKACIN SULFATE IV ONE (11:27)
[2025-01-24 11:40] LABS: Creatine Kinase 17.0 U/L (30-223)
[2025-01-24] MEDS: TIGECYCLINE IV STA (12:20)
[2025-01-24] MEDS: DEXTROSE 5% IV STA (12:20)
[2025-01-24] MEDS: DAPTOmycin 800 MG in SYRINGE 0 ML IV SCH (13:45)
[2025-01-24] MEDS: SULBACTAM SOD IV SCH (15:33)
[2025-01-24] MEDS: SODIUM CHLORIDE 0.9% IV SCH (15:33)
[2025-01-24] MEDS: AMPICILLIN IV SCH (15:33)
--- NOTE | 2025-01-24 18:12 | Hospitalist Progress Note ---
Date of Service January 24, 2025 Assessment & Plan (1) Carbapenem-resistant Acinetobacter baumannii infection: (2) Bacteremia due to Enterococcus: (3) Bacteremia due to Klebsiella pneumoniae: (4) Complicated UTI (urinary tract infection): (5) Rectal mass: Plan 54 yo M with rectal cancer with colostomy s/p radiation and completed 8 cycles of FOLFOX (09/20/24) with disease progression despite treatment, schizophrenia, HTN, DM2 who presented on 01/19 with worsening confusion, hypotension, found to have polymicrobial bacteremia (XDR Acinetobacter baumannii, E faecium, Kleb pneumo) likely 2/2 bilateral hydroureteronephrosis from obstructing pelvic mass, s/p bilateral ureteral stents (01/20/25). Initially in the ICU briefly on 01/20 but was downgraded when code status from full code to DNR/DNI by patient sister who is POA. Etiology of severe septic shock with end-organ failure (e.g., acute kidney injury) was due to catheter-associated UTI with hematogenous dissemination. Severe septic shock has RESOLVED, and so too has end-organ failure (e.g., acute kidney injury) RESOLVED, as shown above by the progressive decline in creatinine levels. In addition to empiric antibiotics patient has received IV fluid rehydration therapy Severe sepsis with septic shock/UTI - Septic shock has resolved with MAP > 65, and evidence of end organ damage has resolved Cr improvements - Ucx positive for 2 strains A. baumannii, E. Faecium and E. Facaelis - Bcx positive for A. baumannii/nosoco - Lactic acid, procalcitonin, and WBC counts downtrending and vitals hemodynamically stable - Patient has been on several abx therapy including ceftriaxone and Zosyn; This was switched to Unasyn, meropenem and vancomycin with the rationale supporting coverage for Enterococcus with vancomycin and A. Baumannii with Unasyn and meropenem - Due to positive Bcx with complex organism, ID consulted appreciate recs stated below: -For carbapenem-resistant Acinetobacter baumannii: -Changed amp-sulbactam to 9 g q8h extended infusion over 4 hours -Started tigecycline 200 mg x 1, followed by 100 mg q12h -Ordered a 1 time dose of amikacin 15 mg/kg -Changed vanc to daptomycin 12 mg/kg IV q24h (easier to dose, and do not always trust vanc susceptibility for E faecium. Hx of rectal mass CT angiography abdomen pelvis showing significant increase in size compared to previous with fistula to skin and invasion of obturator and gluteal muscles Was told up at [facility] that he was not currently a surgical candidate Patient with previous chemoradiation treatments and after recent DNR/DNI transition will call POA and attempt goals of care discussion for probably hospice/palliative intervention Acute kidney injury- Resolved Secondary to hypovolemia associated with anemia and dehydration Repeat laboratories in a.m. after more aggressive fluid resuscitation Electrolyte disturbances/hyperkalemia/hypomagnesemia- No signs of ectopy on monitor in the ED Potassium 5.8 on admission, likely secondary to acute kidney injury Repeat in a.m. after having received 2 L normal saline and PRBCs Magnesium sulfate 1 g IV for magnesium of 1.5 Diabetes mellitus- Hold metformin ICU protocol-resistant E faecalis bacteremia in November 2024). Baseline CK 17 on 01/24/25 -Continue monitoring Bcxs Admission and Anticipated Discharge Date Admission Date: January 19, 2025 Subjective Patient without acute complaints today, and denies chest pain, palpitations, SOB, cough, wheeze, abdominal pain, nausea, vomiting, headache, fevers, and chills. Patient is afebrile and remains hemodynamically stable. Physical Exam Physical Exam: General: patient resting comfortably, NAD, non-toxic in appearance, answers questions appropriately. Skin: warm, dry, intact HEENT: NC/AT, anicteric sclera, conjunctiva without injection, moist mucus membranes. Heart: +S1/S2, regular, no m/r/g Lungs: equal air entry bilaterally, no rales/rhonchi/wheezes Abd: +BS, soft, NT/ND Ext: warm, no clubbing/cyanosis or edema Neuro: nonfocal, speech intact, no facial droop, moving all extremities. Results & Data Results & Data Vital Signs (Past 12 Hours) Vital Signs Temp Pulse Pulse Resp BP Pulse Ox O2 Del Method 01/24/25 15:58 36.8 C 117 H 18 136/79 93 Room Air 01/24/25 13:00 82 01/24/25 11:56 36.5 C 87 17 118/71 99 Room Air 01/24/25 08:18 36.4 C L 96 H 17 118/76 100 Room Air 01/24/25 07:20 Room Air Resident Activity Tracking Resident Involvement: Resident Care Provided Care Provided: Adult Hospital Medicine
[2025-01-24] MEDS: POTASSIUM CHLORIDE CRTAB 20 MEQ TABCR PO STA (20:40)
[2025-01-24] MEDS ORDERED: VANCOMYCIN HCL 1,000 MG/270 ML BAG IV SCH (22:00)
[2025-01-24] MEDS ORDERED: DEXTROSE 5% IV SCH (23:00)
[2025-01-24] MEDS ORDERED: TIGECYCLINE IV SCH (23:00)
[2025-01-24] MEDS: TIGECYCLINE 100 MG in DEXTROSE 5% 100 ML IV SCH (23:06)
[2025-01-25 05:22] LABS: Hematocrit (blood only) 33.4 % (42.0-52.0); Hemoglobin 10.7 g/dl (14.0-18.0); Immature Granulocytes # (auto) 0.73 K/uL (0.01-0.20); Immature Granulocytes % (auto) 4.2 %; Mean Corpuscular Hemoglobin 25.8 pg (25.0-34.0); Mean Corpuscular Volume 80.7 fL (80.0-100.0); Platelet Count 309 K/uL (130-400); RDW Standard Deviation 47.0 fL (36.4-46.3); Red Blood Count 4.14 M/uL (4.70-6.10); White Blood Count 17.27 K/ul (4.8-10.8)
[2025-01-25 05:36] LABS: Alanine Aminotransferase 129.0 U/L (7-52); Albumin Globulin Ratio 0.6 (0.9-2); Alkaline Phosphatase 217.0 U/L (34-104); Anion Gap 8.0 (3-11); Bilirubin,Total 0.7 mg/dl (0.2-1.0); Blood Urea Nitrogen 18.0 mg/dl (6-23); Calcium 7.8 mg/dl (8.6-10.3); Carbon Dioxide 24.0 mmol/L (21-32); Chloride 100.0 mmol/L (98-107); Creatinine Clr Calc Pharmacy 101.4 ml/min; Globulin 4.0 gm/dl (2.5-4.0); Glucose 134.0 mg/dl (70-99(Fasting)); Magnesium 1.4 mg/dl (1.7-2.4); Potassium 3.4 mmol/L (3.5-5.1); Sodium 132.0 mmol/L (136-145); Total Protein 6.2 gm/dl (6.0-8.3)
[2025-01-25] MEDS: POTASSIUM CHLORIDE CRTAB 20 MEQ TABCR PO STA (07:32)
[2025-01-25] MEDS: MAGNESIUM SULFATE / D5W 1 GM/100 ML BAG IV ONE (07:37)
--- NOTE | 2025-01-25 10:52 | Infectious Disease Progress Nt ---
Date of Service January 25, 2025 Assessment & Plan (1) Carbapenem-resistant Acinetobacter baumannii infection: (2) Bacteremia due to Enterococcus: (3) Bacteremia due to Klebsiella pneumoniae: (4) Complicated UTI (urinary tract infection): (5) Rectal mass: Plan Problems: #Polymicrobial bacteremia 2/2 urinary obstruction: carbapenem-resistant Acinetobacter baumannii, E faecium (vanc-S), Kleb pneumo #Bilateral hydroureteronephrosis 2/2 pelvic mass s/p bilateral ureteral stents (01/20/25): UCx with Acinetobacter baumannii, E faecalis, E faecium #Rectal cancer with large pelvic mass, progression despite radiation and 8 cycles of FOLFOX #Elevated LFTs Micro: 01/24 BCx x2: pending 01/22 BCx x2: Acinetobacter baumannii in 2/4 bottles (S amikacin, gent, tobra. Otherwise R) 01/20 UCx: Acinetobacter baumannii #1 (S amikacin, gent, tobra. Otherwise R to amp/sul, cefepime, cipro, kristen, pip/tazo, tetra, TMP/SMX)), Acinetobacter baumannii #2 (S amikacin, gent. I tobra. Otherwise R), E faecalis (S amp, vanc), E faecium (S vanc. R amp) 01/19 UCx: mixed maurice 01/19 BCx x2: Kleb pneumo in 1/4 bottles (R cipro, otherwise S), E faecium in 1/4 bottles (S vanc, R amp) Abx: Amp-sul 3 g q4h 01/22 - 01/24, 9 g q8h 01/24 - present Tigecycline 01/24 - present Dapto 01/24 - present Amikacin x 1 01/24 Meropenem 01/22 - 01/24 Vanc 01/19 - 01/24 Zosyn 01/20 - 01/22 Ceftriaxone 01/19 54 yo M with rectal cancer with colostomy s/p radiation and completed 8 cycles of FOLFOX (09/20/24) with disease progression despite treatment, schizophrenia, HTN, DM2 who presented on 01/19 with worsening confusion, hypotension, found to have polymicrobial bacteremia (carbapenem-resistant Acinetobacter baumannii, E faecium, Kleb pneumo) likely 2/2 bilateral hydroureteronephrosis from obstructing pelvic mass, s/p bilateral ureteral stents (01/20/25). Pt has several recent admissions for septic shock. Was admitted to [facility] 11/07-11/17 with septic shock and UTI, with MRSA and XDR Acinetobacter bacteremia (S to gent only). Unclear source of infection, and mediport was removed. Did have new mild bilateral hydroureteronephrosis due to obstructing mass. Was treated with vanc and Xacduro. PICC line was placed, and he was discharged to rehab on vancomycin x 2 weeks. KAYA with no vegetations. Then admitted to [facility] 12/01-12/22 with Citrobacter and vanc resistant E faecalis bacteremia, concern for infected necrotic components of rectal mass seen on CT, moderate bilateral hydronephrosis 2/2 mass effect. It appears he was discharged on suppressive amoxicillin and ciprofloxacin. Per colorectal surgery note from clinic visit on 01/17, felt to have likely unresectable rectal cancer, and that he was an overall poor surgical candidate given malnutrition and anemia and deconditioning. On presentation, pt was afebrile, HR 122, BP 86/60, RR 22, 95% on room air. Labs showed WBC 22.03, Hb 5.8, Cr 1.81, Na 121, K 6, lactate 5.3, procal 7.96. UA with 21-50 WBCs. CXR with suspected mild pulm edema. CTA AP with enlarging soft tissue rectal mass, chronic pancreatitis with new peripancreatic fat stranding and edema surrounding the pancreas c/w acute pancreatitis, and moderate bilateral hydroureteronephrosis with distension of the ureters extending to the pelvic mass. Pt was started on vanc, Zosyn, Levophed. Urology was consulted and took the pt to the OR on 01/20 for dilation of R mid ureter stricture and urethral stricture, bilateral ureteral stent placement. Urine from R kidney was aspirate and sent for culture, which grew carbapenem-resistant Acinetobacter baumannii, E faecalis, E faecium. Admission blood cultures growing E faecium in 1/4 bottles and Kleb pneumo in 1/4 bottles. Weaned off Levophed on 01/20 AM. Zosyn was changed to amp-sulbactam 3 g q4h and meropenem on 01/22. BCx from 01/22 growing Acinetobacter baumannii in 2/4 bottles. ID consulted on 01/24 and changed CRAB treatment to: amp-sulbactam 9 g q8h extended infusion over 4 hours and tigecycline, and gave one time dose of amikacin. Changed vanc to dapto for ease of dosing and also because of not fully trusting vanc susceptibility for E faecium. Also has a history of vanc-resistant E faecalis bacteremia in November 2024. Recommendations: -For carbapenem-resistant Acinetobacter baumannii: -Continue amp-sulbactam 9 g q8h extended infusion over 4 hours -Continue tigecycline 100 mg IV q12h -Continue daptomycin 12 mg/kg IV q24h. Baseline CK 17 on 01/24/25 -follow-up repeat blood cultures -Trend LFTs--noted to be elevated on 01/25 Will continue to follow. Admission and Anticipated Discharge Date Admission Date: January 19, 2025 Subjective This patient recommendation is based on a telemedicine consult request which was completed asynchronously through chart review and information provided by the primary physician. The patient was not seen or examined today. The evaluation is consultative in nature and all patient care and treatment decisions can either be accepted or rejected by the patient's primary hospital-based treating physician using their own independent medical judgment for their patient. Time Spent Reviewing Chart: 11 - 20 minutes Afebrile WBC 13.5 --> 17.27 AST 164, ALT 129, alk phos 217 Procalcitonin downtrending Results & Data Vital Signs (Past 12 Hours) Vital Signs Temp Pulse Pulse Resp BP Pulse Ox O2 Del Method 01/25/25 09:38 Room Air 01/25/25 07:23 36.3 C L 125 H 18 104/74 96 Room Air 01/25/25 06:25 113 H 01/25/25 04:23 36.6 C 122 H 16 112/77 100 Room Air 01/24/25 23:12 36.9 C 115 H 16 127/79 99 Room Air Laboratory Results Short CBC 01/25/25 Range/Units 04:39 WBC 17.27 H (4.8-10.8) K/ul Hgb 10.7 L (14.0-18.0) g/dl Hct 33.4 L (42.0-52.0) % Plt Count 309 (130-400) K/uL BMP 01/25/25 04:39 Sodium 132 L Potassium 3.4 L Chloride 100 Carbon Dioxide 24 BUN 18 Creatinine 0.78 Glucose 134 H Calcium 7.8 L Cardiac Enzymes 01/24/25 Range/Units 05:37 Total Creatine Kinase 17 L (30-223) U/L Liver Function 01/25/25 Range/Units 04:39 Total Bilirubin 0.7 (0.2-1.0) mg/dl AST 164 H (13-39) U/L ALT 129 H (7-52) U/L Alkaline Phosphatase 217 H (34-104) U/L Albumin 2.2 L (3.4-5.0) gm/dl Medications Administered Current Inpatient Medications Daptomycin 800 mg/ Syringe 16 mls @ 8 mls/min IV Q24H BHAKTI; Protocol Stop: 02/07/25 10:59 Last Admin: 01/25/25 10:29 Dose: 8 mls/min Tigecycline 100 mg/ Dextrose 110 mls @ 200 mls/hr IV Q12H BHAKTI Stop: 02/07/25 22:59 Last Infusion: 01/24/25 23:50 Dose: Infused Ampicillin Sodium/Sulbactam Sodium 9,000 mg/ Sodium Chloride 274 mls @ 68.5 mls/hr IV Q8H BHAKTI Stop: 02/07/25 15:59 Last Admin: 01/25/25 10:29 Dose: 68.5 mls/hr Midodrine (Midodrine Hcl 10 Mg Tab) 10 mg PO TIDM BHAKTI Stop: 02/19/25 07:59 Last Admin: 01/25/25 07:44 Dose: 10 mg
--- NOTE | 2025-01-25 12:34 | Hospitalist Progress Note ---
Date of Service January 25, 2025 Assessment & Plan (1) Carbapenem-resistant Acinetobacter baumannii infection: (2) Bacteremia due to Enterococcus: (3) Bacteremia due to Klebsiella pneumoniae: (4) Complicated UTI (urinary tract infection): (5) Rectal mass: Plan 54 yo M with rectal cancer with colostomy s/p radiation and completed 8 cycles of FOLFOX (09/20/24) with disease progression despite treatment, schizophrenia, HTN, DM2 who presented on 01/19 with worsening confusion, hypotension, found to have polymicrobial bacteremia (XDR Acinetobacter baumannii, E faecium, Kleb pneumo) likely 2/2 bilateral hydroureteronephrosis from obstructing pelvic mass, s/p bilateral ureteral stents (01/20/25). Initially in the ICU briefly on 01/20 but was downgraded when code status from full code to DNR/DNI by patient sister who is POA. Etiology of severe septic shock with end-organ failure (e.g., acute kidney injury) was due to catheter-associated UTI with hematogenous dissemination. Severe septic shock has RESOLVED, and so too has end-organ failure (e.g., acute kidney injury) RESOLVED, as shown above by the progressive decline in creatinine levels. In addition to empiric antibiotics patient has received IV fluid rehydration therapy Severe sepsis with septic shock/UTI - Septic shock has resolved with MAP > 65, and evidence of end organ damage has resolved Cr improvements - Ucx positive for 2 strains A. baumannii, E. Faecium and E. Facaelis - Bcx positive for A. baumannii/nosoco - Lactic acid, procalcitonin, and WBC counts downtrending and vitals hemodynamically stable - Patient has been on several abx therapy including ceftriaxone and Zosyn; This was switched to Unasyn, meropenem and vancomycin with the rationale supporting coverage for Enterococcus with vancomycin and A. Baumannii with Unasyn and meropenem - Due to positive Bcx with complex organism, ID consulted appreciate recs stated below: -For carbapenem-resistant Acinetobacter baumannii: -Changed amp-sulbactam to 9 g q8h extended infusion over 4 hours -Started tigecycline 200 mg x 1, followed by 100 mg q12h -Ordered a 1 time dose of amikacin 15 mg/kg -Changed vanc to daptomycin 12 mg/kg IV q24h (easier to dose, and do not always trust vanc susceptibility for E faecium. Hx of rectal mass CT angiography abdomen pelvis showing significant increase in size compared to previous with extension of rectal mass to skin and invasion of obturator and gluteal muscles Was told up at [facility] that he was not currently a surgical candidate Patient with previous chemoradiation treatments and after recent DNR/DNI transition will call POA and attempt goals of care discussion for probably hospice/palliative intervention Palliative care consult placed, appreciate recommendations: Family will have a discussion tonight/tomorrow and will reach out to physicians for GOC discussion. Patient options are to finish abx therapy before return to home, stop abx therapy and begin comfort measures at home, or try to get coverage for IV abx and home health to get treated from home. Acute kidney injury- Resolved Secondary to hypovolemia associated with anemia and dehydration Repeat laboratories in a.m. after more aggressive fluid resuscitation Electrolyte disturbances/hyperkalemia/hypomagnesemia- No signs of ectopy on monitor in the ED Potassium 5.8 on admission, likely secondary to acute kidney injury Repeat in a.m. after having received 2 L normal saline and PRBCs Magnesium sulfate 1 g IV for magnesium of 1.5 Diabetes mellitus- Hold metformin ICU protocol-resistant E faecalis bacteremia in November 2024). Baseline CK 17 on 01/24/25 -Continue monitoring Bcxs Admission and Anticipated Discharge Date Admission Date: January 19, 2025 Supervising Physician Co-Signing Physician Notes Resident Physician Supervision Note: I personally examined the patient and verified all cornelius points of history and exam, discussed case, and agree with decision making with Dr. Hayes I discussed the case with the resident and agree with the findings and plan as documented in the note. Any exceptions or clarifications are listed here: Patient is pleasant he offers no distress ostomy bag is working well he understands that he has cancer and is not treatable as he is decided with his family not to pursue additional treatments and has progressed rapidly protruding through his skin from the ordinal side of his rectum. Discussion about transition to home hospice versus continue with active treatment. Patient has a very fastidious Acinetobacter infection and is on multiple antibiotics given his carbapenem resistant. 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 Likely origin of source of infection. Continue antibiotics well goals of care discussions being undertaken. Patient himself is voiced his desire to go home with understanding that he will eventually pass away from his cancer Documented By: Raoul Nam MD Subjective Patient is seen at bedside and case is discussed. Patient understands that he is being treated for sepsis and that a unique approach with antibiotic choice is being utilized because of the distinct pathogen that has been found on blood cultures. Patient states that he would like to go home, and denies pain, fevers/chills, chest pain, abdominal pain, nausea, and vomiting but mental capacity is questionable with his diagnosis of schizophrenia. The patient does seem to understand that he has a form of incurable rectal cancer that is rapidly evolving and a blood stream infection that he is being treated for. Patient is afebrile and hemodynamically stable. Physical Exam Physical Exam: General: patient resting comfortably, NAD, non-toxic in appearance, answers questions appropriately. Skin: warm, dry, intact HEENT: NC/AT, anicteric sclera, conjunctiva without injection, moist mucus membranes. Heart: +S1/S2, regular, no m/r/g Lungs: equal air entry bilaterally, no rales/rhonchi/wheezes Abd: +BS, soft, NT/ND Ext: warm, no clubbing/cyanosis or edema Neuro: nonfocal, speech intact, no facial droop, moving all extremities. Results & Data Results & Data Vital Signs (Past 12 Hours) Vital Signs Temp Pulse Pulse Resp BP BP Pulse Ox 01/25/25 11:32 98 H 18 124/88 100 01/25/25 09:38 01/25/25 07:23 36.3 C L 125 H 18 104/74 96 01/25/25 06:25 113 H 01/25/25 04:23 36.6 C 122 H 16 112/77 100 O2 Del Method 01/25/25 11:32 Room Air 01/25/25 09:38 Room Air 01/25/25 07:23 Room Air 01/25/25 06:25 01/25/25 04:23 Room Air Resident Activity Tracking Resident Involvement: Resident Care Provided Care Provided: Adult [facility] Medicine
--- NOTE | 2025-01-25 14:28 | Palliative Care Consultation ---
Date of Consultation January 25, 2025 Assessment & Plan (1) Palliative care by specialist: Met with pt at bedside and spoke with pt's sister by phone. Introduced Palliative Medicine and explained our role in advanced care planning, symptom management and navigation through the progression of life limiting disease. Patient and/or family were receptive to palliative services for goals of care discussions. Reviewed we are different from hospice, a home health nurse visiting service. (2) Encounter for assessment of decision-making capacity: Patient exhibits current lack of decisional capacity based on the inability to convey understanding of personal PMHx, current medical condition, treatment options nor the risks / benefits/ potential outcomes of accepting/declining those options, and inability to make decisions based on such knowledge. Hospital does not have written documentation of patient wishes concerning his chosen proxy for medical decisions. Per PA [id number], in absence of written documentation of patient wishes, pt's proxy for medical decisions would be his parents. Pt has consistently verbalized that he trusts his sister Jeannie to serve as as primary proxy for medical decisions in the event he lacks decisional capacity. Pt does currently require a proxy for medical decisions. (3) Counseling regarding goals of care: Spoke with pt's sister Jeannie by phone for 30minutes. We discussed pt's medical history and current admission course. Jeannie shared that the pt had initially expressed desire to go home and not pursue any further life prolonging treatments, but as he improved from IV antibiotics he has changed his mind. We discussed that the pt appears to be confused and not possess decisional capacity, Jeannie agreed. She shared that the family is planning on meeting today or tomorrow to discuss how to proceed before coming in to the hospital to discuss with the patient. She shared that she and the patient's parents have discussed that the pt "does not have pain and aside from sepsis he does not have alot of symptoms" she referred to pt's age and shared that they want to give him a chance to recover from sepsis if he is saying that he wants to live. She shared that the patient does have a good quality of life between his frequent admissions and most values being at home. We discussed the patient's underlying aggressive colorectal cancer with pr ogression of disease through treatment and recurrent polymicrobial septicemia without source control. We discussed that although the patient does seem to be responding to aggressive triple antibiotic therapy, without source control the infection will eventually return after IV antibiotic course is completed and continuing course of IV antibiotics may delay discharge. Discussed that even with clearance of sepsis, the underlying aggressive rectal cancer continues to advance unchecked. We discussed that given all of these things the patient has a very poor prognosis even with aggressive treatment. Shared concern that if patient return to hospital in septic shock, without aggressive interventions he may end up dying in the hospital. Jeannie stated that she knows the patient does not want any further cancer directed treatment, but they are hopeful that ongoing antibiotics may allow some quality of life. Jeannie shared appreciation for the information and shared that she will be discussing this with the family and would like to plan for a GOC discussion with palliative care team later in week. Jeannie will be arranging time for family meeting on Thursday, after they have met as family to discuss how they might meet pt's needs for ongoing nursing care at home. Contact information for palliative care team given to Jeannie to call and schedule meeting with Dr Richardson on Thursday. Plan DNR/DNI, continue all other life prolonging treatments Pt's sister will be arranging GOC discussion for Thursday, time TBD. History of Present Illness Reason for Consultation: Goals of care Requesting Physician: Raoul Nam MD Attending Physician: Raoul Nam MD History of Present Illness 54 yo M with rectal cancer with colostomy s/p radiation and completed 8 cycles of FOLFOX (09/20/24) with disease progression despite treatment, schizophrenia, HTN, DM2 who presented on 01/19 with worsening confusion, hypotension, found to have polymicrobial bacteremia (XDR Acinetobacter baumannii, E faecium, Kleb pneumo) likely 2/2 bilateral hydroureteronephrosis from obstructing pelvic mass, s/p bilateral ureteral stents (01/20/25). Pt has several recent admissions for septic shock. Was admitted to [facility] 11/07-11/17 with septic shock and UTI, with MRSA and XDR Acinetobacter bacteremia (S to gent only). Unclear source of infection, and mediport was removed. Did have new mild bilateral hydroureteronephrosis due to obstructing mass. Was treated with vanc and Xacduro. PICC line was placed, and he was discharged to rehab on vancomycin x 2 weeks. KAYA with no vegetations. Then admitted to [facility] 12/01-12/22 with Citrobacter and vanc resistant E faecalis bacteremia, concern for infected necrotic components of rectal mass seen on CT, moderate bilateral hydronephrosis 2/2 mass effect. It appears he was discharged on suppressive amoxicillin and ciprofloxacin. Per colorectal surgery note from clinic visit on 01/17, felt to have likely unresectable rectal cancer, and that he was an overall poor surgical candidate given malnutrition and anemia and deconditioning. Allergies Allergy/AdvReac Type Severity Reaction Status Date / Time aspirin Allergy Mild Unknown Unverified 03/07/24 22:24 Penicillins Allergy Mild Unknown Verified 03/07/24 22:24 cefepime Allergy Confusion Verified 01/19/25 18:53 Home Medications Medication Instructions Recorded Confirmed Type levothyroxine 50 mcg tablet 50 mcg PO DAILYBB 02/03/24 01/19/25 History metformin 500 mg tablet,extended 500 mg PO QAM 02/03/24 01/19/25 History release 24 hr risperidone 2 mg tablet 2 mg PO HS 02/03/24 01/19/25 History venlafaxine 75 mg capsule,extended 150 mg PO QAM 02/03/24 01/19/25 History release 24 hr (Effexor XR) apixaban 5 mg tablet (Eliquis) 5 mg PO BID 03/07/24 01/19/25 History folic acid 1 mg tablet 1 mg PO QAM 03/07/24 01/19/25 History thiamine HCl (vitamin B1) 100 mg 100 mg PO DAILY 03/07/24 01/19/25 History tablet ammonium lactate 12 % lotion 1 applic topical BID 01/19/25 01/19/25 History cephalexin 500 mg capsule 500 mg PO BID 01/19/25 01/19/25 History cholecalciferol (vitamin D3) 25 25 mcg PO DAILY 01/19/25 01/19/25 History mcg (1,000 unit) capsule (Vitamin D3) ciprofloxacin HCl 250 mg tablet 250 mg PO Q12H 01/19/25 01/19/25 History magnesium oxide 400 mg PO DAILY 01/19/25 01/19/25 History metoprolol succinate 25 mg 12.5 mg PO DAILY 01/19/25 01/19/25 History tablet,extended release 24 hr midodrine 10 mg tablet 10 mg PO TIDM 01/19/25 01/19/25 History nystatin 100,000 unit/gram topical 1 applic topical BID 01/19/25 01/19/25 History cream pantoprazole 40 mg tablet,delayed 40 mg PO DAILY 01/19/25 01/19/25 History release potassium chloride 20 mEq 20 meq PO DAILY 01/19/25 01/19/25 History tablet,extended release(part/cryst) Patient History Medical History Hypokalemia Acute kidney injury Acute hyponatremia Sepsis Hypothyroid Social History Smoking Status: Never smoker Second Hand Exposure: No; Do You Dip or Chew Tobacco: No; Tobacco Cessation Education Requested by Patient: No Hx Alcohol Use: No Hx Substance Use: No Preferred Language: Burkinan Communication Ability: Effective Test Center Administrator Required: No Beliefs That Will Affect Care: Spiritual Current Living Situation: Family Other Information That Helps Us Care for You: No Feels Safe at Home: Yes Safety Concerns: Feels Safe At This Time Assistive Devices: None Review of Systems Review of Systems: All systems reviewed & are unremarkable except as noted in HPI & below Physical Exam Constitutional: + ill appearing, + thin, + frail appeari ng and comfortable Eyes: PERRL, conjunctivae normal, anicteric sclerae Neck: trachea midline, no thyromegaly Respiratory: normal respiratory effort, lungs clear to auscultation Cardiovascular: RRR, no murmur, no edema Gastrointestinal (Abdomen): normal bowel sounds, soft, nontender, no hepatosplenomegaly Skin: no rashes, warm and dry Psychiatric: A+Ox3, euthymic affect Results & Data Vital Signs (Past 12 Hours) Vital Signs Temp Pulse Pulse Resp BP BP Pulse Ox 01/25/25 11:32 98 H 18 124/88 100 01/25/25 09:38 01/25/25 07:23 36.3 C L 125 H 18 104/74 96 01/25/25 06:25 113 H 01/25/25 04:23 36.6 C 122 H 16 112/77 100 O2 Del Method 01/25/25 11:32 Room Air 01/25/25 09:38 Room Air 01/25/25 07:23 Room Air 01/25/25 06:25 01/25/25 04:23 Room Air Laboratory Results Abnormal lab results 01/25/25 01/25/25 Range/Units 04:39 08:01 WBC 17.27 H (4.8-10.8) K/ul RBC 4.14 L (4.70-6.10) M/uL Hgb 10.7 L (14.0-18.0) g/dl Hct 33.4 L (42.0-52.0) % RDW Std Deviation 47.0 H (36.4-46.3) fL RDW Coeff of Dru 16.4 H (11.5-14.5) % MPV 8.6 L (9.4-12.4) fL Neut # (Auto) 14.42 H (1.40-6.50) K/uL Lymph # (Auto) 0.81 L (1.20-3.40) K/uL [place] # (Auto) 1.08 H (0.11-0.59) K/uL Immature Gran # (Auto) 0.73 H (0.01-0.20) K/uL Sodium 132 L (136-145) mmol/L Potassium 3.4 L (3.5-5.1) mmol/L BUN/Creatinine Ratio 23.1 H (10-20) Glucose 134 H (70-99(Fasting)) mg/dl POC Glucose 142 H (70-99) mg/dl Calcium 7.8 L (8.6-10.3) mg/dl Magnesium 1.4 L (1.7-2.4) mg/dl AST 164 H (13-39) U/L ALT 129 H (7-52) U/L Alkaline Phosphatase 217 H (34-104) U/L Albumin 2.2 L (3.4-5.0) gm/dl Albumin/Globulin Ratio 0.6 L (0.9-2) Diagnostic Findings Chest X-Ray 01/19/25 17:38 Clinical History: Sepsis Technique: A frontal view of the chest was obtained Comparison is made to the prior examination today 03/09/2024 Findings: There is mild left lung base atelectasis. The heart size is within normal limits. No pleural effusion or pneumothorax is seen. There is suspected mild pulmonary edema No fracture is noted. No foreign body is seen Impression: Suspected mild pulmonary edema Electronically signed by Salvador Braun 01-19-2025 6:29 PM Abdomen/Pelvis CTA 01/19/25 20:30 Exam(s): CTA ABDOMEN + PELVIS With Contrast IV Amt: 118 cc opt i320 EXAM: CT Abdomen and Pelvis With Intravenous Contrast CLINICAL HISTORY: hypotension, hb 5.8, rectal mass. TECHNIQUE: Axial computed tomographic images of the abdomen and pelvis with intravenous contrast. CTDI is 17.1 mGy and DLP is 1048.04 mGy-cm. Automated exposure control was utilized for the study. A dose lowering technique was utilized adhering to the principles of ALARA. CONTRAST: Patient received 118 cc opt i320 of IV contrast COMPARISON: CTA abdomen and pelvis without contrast 03/07/2024 FINDINGS: VASCULATURE: Aorta: No acute findings. No abdominal aortic aneurysm. No dissection. Celiac trunk and mesenteric arteries: No acute findings. No occlusion or significant stenosis. Renal arteries: No acute findings. No occlusion or significant stenosis. Iliac arteries: No acute findings. No occlusion or significant stenosis. Lung bases: Minimal dependent subsegmental changes in the posterior lower lobes. No consolidation. ABDOMEN: Liver: Unremarkable. No mass. Gallbladder and bile ducts: Solitary subcentimeter gallstone. No gallbladder wall thickening. No ductal dilation. Pancreas: Similar calcifications involving the tail of the pancreas and at the pancreatic head consistent with chronic pancreatitis. However, there is new peripancreatic fat stranding and edema surrounding the pancreas. No ductal dilation. Spleen: Unremarkable. No splenomegaly. Adrenals: Unremarkable. No mass. Kidneys and ureters: Moderate bilateral hydroureteronephrosis with distention of the ureters extending to the pelvic mass. Stomach and bowel: The previously noted soft tissue rectal mass previously filling the pelvic outlet and extending below the pelvic floor has expanded with invasion of the obturator muscles, [id number]- left. There is also further extension inferiorly below the pelvic floor with involvement of the medial aspect of the gluteal muscles bilaterally. There is also extension to the skin surface with a pedunculated masslike component on the left now identified measuring 5.5 x 3.3 x 3.4 cm. There is heterogeneous enhancement of the mass but no obvious active arterial extravasation internally. No evidence for high-grade bowel obstruction. No evidence for intraluminal contrast extravasation within the stomach, small bowel or proximal colonic segments extending to the left lower quadrant colostomy, accounting for limitations with respiratory artifact. PELVIS: Appendix: No findings to suggest acute appendicitis. Bladder: The bladder is prominently displaced anteriorly with a Fox catheter in position. There is obliteration of the fat plane between the mass in the posterior aspect of the bladder with diffuse bladder wall prominence. Reproductive: Unremarkable as visualized. ABDOMEN and PELVIS: Intraperitoneal space: Unremarkable. No significant fluid collection. No free air. Bones/joints: No acute fracture. No dislocation. Soft tissues: Unremarkable. Lymph nodes: Unremarkable. No enlarged lymph nodes. IMPRESSION: 1. The previously noted soft tissue rectal mass previously filling the pelvic outlet and extending below the pelvic floor has expanded with invasion of the obturator muscles, [id number]-left. There is also further extension inferiorly below the pelvic floor with involvement of the medial aspect of the gluteal muscles bilaterally. There is also extension to the skin surface with a pedunculated masslike component on the left now identified measuring 5.5 x 3.3 x 3.4 cm. There is heterogeneous enhancement of the mass but no obvious active arterial extravasation internally. 2. No evidence for high-grade bowel obstruction. No evidence for intraluminal contrast extravasation within the stomach, small bowel or proximal colonic segments extending to the left lower quadrant colostomy, accounting for limitations with respiratory artifact. 3. Similar calcifications involving the tail of the pancreas and at the pancreatic head consistent with chronic pancreatitis. However, there is new peripancreatic fat stranding and edema surrounding the pancreas. The appearance is consistent with acute pancreatitis. 4. Moderate bilateral hydroureteronephrosis with distention of the ureters extending to the pelvic mass. A component of urinary retention is suspected from extrinsic compression by the mass. Electronically signed by: Tyree Hill MD 01/19/25 22:18 PM Retrograde Pyelogram 01/20/25 12:00 FL retrograde includes kub CLINICAL HISTORY: STENT COMPARISON STUDY: None FLUOROSCOPY TIME: 92nd FLUOROSCOPY IMAGES: 5 EXPOSURE DOSE: 18 mGy FINDINGS: Fluoroscopy was provided for urologic procedure. IMPRESSION: Intraoperative fluoroscopy. ACT 112: Negative or not required by law. Electronically signed by: Kehinde Thorpe M.D. 01/20/2025 3:39 PM Medications Administered Current Inpatient Medications Daptomycin 800 mg/ Syringe 16 mls @ 8 mls/min IV Q24H BHAKTI; Protocol Stop: 02/07/25 10:59 Last Admin: 01/25/25 10:29 Dose: 8 mls/min Tigecycline 100 mg/ Dextrose 110 mls @ 200 mls/hr IV Q12H BHAKTI Stop: 02/07/25 22:59 Last Infusion: 01/25/25 13:22 Dose: Infused Ampicillin Sodium/Sulbactam Sodium 9,000 mg/ Sodium Chloride 274 mls @ 68.5 mls/hr IV Q8H [facility] Stop: 02/07/25 15:59 Last Admin: 01/25/25 10:29 Dose: 68.5 mls/hr Midodrine (Midodrine Hcl 10 Mg Tab) 10 mg PO TIDM [facility] Stop: 02/19/25 07:59 Last Admin: 01/25/25 13:33 Dose: 10 mg PG Care Time/CCT Total # of Minutes Spent Total Time Spent with Patient: Total time spent is greater than 50% in coordination of care (as documented) at patient's floor/unit and/or counseling patient: Advanced Care Planning 19970 Advanced Care Planning 30 [place] [address] IN/OBS CONSULT LVL 4,60M Patient Type New History Expanded Problem Focused Exam Expanded Problem Focused Medical Decision Making Moderate Complexity Diagnoses Palliative care by specialist Z51.5 Encounter for assessment of decision-making capacity Z00.8 Counseling regarding goals of care Z71.89 Additional Codes Advanced Care Planning - 03089 Advanced Care Planning 30 Min: 74754 Advanced Care Planning 30 Min ([id number])
[2025-01-26 08:08] LABS: Hematocrit (blood only) 27.8 % (42.0-52.0); Hemoglobin 9.2 g/dl (14.0-18.0); Immature Granulocytes # (auto) 0.55 K/uL (0.01-0.20); Immature Granulocytes % (auto) 3.1 %; Mean Corpuscular Hemoglobin 26.7 pg (25.0-34.0); Mean Corpuscular Volume 80.6 fL (80.0-100.0); Platelet Count 319 K/uL (130-400); RDW Standard Deviation 48.4 fL (36.4-46.3); Red Blood Count 3.45 M/uL (4.70-6.10); White Blood Count 17.83 K/ul (4.8-10.8)
--- NOTE | 2025-01-26 08:21 | Billing Data ---
Date of Service January 24, 2025 Coding Level of Care Code 93493 SUB INP/OBS CARE
--- NOTE | 2025-01-26 08:22 | Billing Data ---
Date of Service January 25, 2025 Coding Level of Care Code 42350 SUB INP/OBS CARE
[2025-01-26 08:28] LABS: Alanine Aminotransferase 61.0 U/L (7-52); Albumin Globulin Ratio 0.6 (0.9-2); Alkaline Phosphatase 157.0 U/L (34-104); Anion Gap 10.0 (3-11); Bilirubin,Total 0.6 mg/dl (0.2-1.0); Blood Urea Nitrogen 21.0 mg/dl (6-23); Calcium 7.2 mg/dl (8.6-10.3); Carbon Dioxide 19.0 mmol/L (21-32); Chloride 100.0 mmol/L (98-107); Creatinine Clr Calc Pharmacy 107.0 ml/min; Globulin 3.6 gm/dl (2.5-4.0); Glucose 170.0 mg/dl (70-99(Fasting)); Potassium 3.2 mmol/L (3.5-5.1); Sodium 129.0 mmol/L (136-145); Total Protein 5.7 gm/dl (6.0-8.3)
[2025-01-26] MEDS ORDERED: SODIUM CHLORIDE 1 GM TABLET PO SCH (09:30)
--- NOTE | 2025-01-26 10:31 | Hospitalist Progress Note ---
Date of Service January 26, 2025 Assessment & Plan (1) Carbapenem-resistant Acinetobacter baumannii infection: (2) Bacteremia due to Enterococcus: (3) Bacteremia due to Klebsiella pneumoniae: (4) Complicated UTI (urinary tract infection): (5) Rectal mass: (6) Electrolyte depletion: (7) Transaminitis: Plan 54 yo M with rectal cancer with colostomy s/p radiation and completed 8 cycles of FOLFOX (09/20/24) with disease progression despite treatment, schizophrenia, HTN, DM2 who presented on 01/19 with worsening confusion, hypotension, found to have polymicrobial bacteremia (XDR Acinetobacter baumannii, E faecium, Kleb pneumo) likely 2/2 bilateral hydroureteronephrosis from obstructing pelvic mass, s/p bilateral ureteral stents (01/20/25). Initially in the ICU briefly on 01/20 but was downgraded when code status from full code to DNR/DNI by patient sister who is POA. Etiology of severe septic shock with end-organ failure (e.g., acute kidney injury) was due to catheter-associated UTI with hematogenous dissemination. Severe septic shock has RESOLVED, and so too has end-organ failure (e.g., acute kidney injury) RESOLVED, as shown above by the progressive decline in creatinine levels. In addition to empiric antibiotics patient has received IV fluid rehydration therapy Severe sepsis with septic shock/UTI - Septic shock has resolved with MAP > 65, and evidence of end organ damage has resolved Cr improvements - Ucx positive for 2 strains A. baumannii, E. Faecium and E. Facaelis - Bcx positive for A. baumannii/nosoco - Lactic acid, procalcitonin, and WBC counts downtrending and vitals hemodynamically stable - Patient has been on several abx therapy including ceftriaxone and Zosyn; This was switched to Unasyn, meropenem and vancomycin with the rationale supporting coverage for Enterococcus with vancomycin and A. Baumannii with Unasyn and meropenem - Due to positive Bcx with complex organism, ID consulted appreciate recs stated below: -For carbapenem-resistant Acinetobacter baumannii: -Changed amp-sulbactam to 9 g q8h extended infusion over 4 hours -Started tigecycline 200 mg x 1, followed by 100 mg q12h -Ordered a 1 time dose of amikacin 15 mg/kg -Changed vanc to daptomycin 12 mg/kg IV q24h (easier to dose, and do not always trust vanc susceptibility for E faecium. Hx of rectal mass CT angiography abdomen pelvis showing significant increase in size compared to previous with extension of rectal mass to skin and invasion of obturator and gluteal muscles Was told up at [facility] that he was not currently a surgical candidate Patient with previous chemoradiation treatments and after recent DNR/DNI transition will call POA and attempt goals of care discussion for probably hospice/palliative intervention Palliative care consult placed, appreciate recommendations: Family will have a discussion tonight/tomorrow and will reach out to physicians for GOC discussion. Patient options are to finish abx therapy before return to home, stop abx therapy and begin comfort measures at home, or try to get coverage for IV abx and home health to get treated from home. Transaminitis - Acutely worsened 01/25, AST: 164, ALT: 129, Alk Phos: 217 - 01/26 LFTs improving, AST: 29, ALT: 61, and Alk Phos: 157 - Continue to monitor, CMP QAM Acute kidney injury- Resolved Secondary to hypovolemia associated with anemia and dehydration Repeat laboratories in a.m. after more aggressive fluid resuscitation Electrolyte disturbances/hyperkalemia/hypomagnesemia- No signs of ectopy on monitor in the ED Potassium 5.8 on admission, likely secondary to acute kidney injury Repeat in a.m. after having received 2 L normal saline and PRBCs Magnesium sulfate 1 g IV for magnesium of 1.5 Diabetes mellitus- Hold metformin ICU protocol-resistant E faecalis bacteremia in November 2024). Baseline CK 17 on 01/24/25 -Continue monitoring Bcxs Admission and Anticipated Discharge Date Admission Date: January 19, 2025 Supervising Physician Co-Signing Physician Notes Resident Physician Supervision Note: I personally examined the patient and verified all cornelius points of history and exam, discussed case, and agree with decision making with Dr. Hayes I discussed the case with the resident and agree with the findings and plan as documented in the note. Any exceptions or clarifications are listed here: First day meeeting patient, he is pleasant and I confirmed thatl he understands that he has cancer and is not treatable as he has decided with his family not to pursue additional treatments and has progressed rapidly protruding through his skin from the ordinal side of his rectum. Discussion about transition to home hospice versus continue with active treatment. Patient has a very fastidious Acinetobacter infection and is on multiple antibiotics given his carbapenem resistant. Involving palliative care and discussions at this time. Palliative care will return Thursday. 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 Likely origin of source of infection. Continue antibiotics well goals of care discussions being undertaken. Patient himself is voiced his desire to go home with understanding that he will eventually pass away from his cancer Documented By: Shaji Shearer MD Subjective Patient is seen at bedside this AM and denies fevers, chills, chest pain/palpitations, abdominal pain, nausea, vomiting, SOB, cough and wheeze. Patient remains afebrile and hemodynamically stable. Physical Exam Physical Exam: General: patient resting comfortably, NAD, non-toxic in appearance, answers questions appropriately. Skin: warm, dry, intact HEENT: NC/AT, anicteric sclera, conjunctiva without injection, moist mucus membranes. Heart: +S1/S2, regular, no m/r/g Lungs: equal air entry bilaterally, no rales/rhonchi/wheezes Abd: +BS, soft, NT/ND Ext: warm, no clubbing/cyanosis or edema Neuro: nonfocal, speech intact, no facial droop, moving all extremities. Results & Data Results & Data Vital Signs (Past 12 Hours) Vital Signs Temp Pulse Pulse Resp BP Pulse Ox O2 Del Method 01/26/25 07:29 36.2 C L 116 H 18 107/70 98 Room Air 01/26/25 05:50 114 H 01/26/25 02:51 36.2 C L 132 H 18 102/69 90 Room Air 01/25/25 22:45 Room Air 01/25/25 22:31 111 H Resident Activity Tracking Resident Involvement: Resident Care Provided Care Provided: Adult Hospital Medicine
--- NOTE | 2025-01-26 11:07 | Infectious Disease Progress Nt ---
Date of Service January 26, 2025 Assessment & Plan (1) Carbapenem-resistant Acinetobacter baumannii infection: (2) Bacteremia due to Enterococcus: (3) Bacteremia due to Klebsiella pneumoniae: (4) Complicated UTI (urinary tract infection): (5) Rectal mass: Plan Problems: #Polymicrobial bacteremia 2/2 urinary obstruction: carbapenem-resistant Acinetobacter baumannii, E faecium (vanc-S), Kleb pneumo #Bilateral hydroureteronephrosis 2/2 pelvic mass s/p bilateral ureteral stents (01/20/25): UCx with Acinetobacter baumannii, E faecalis, E faecium #Rectal cancer with large pelvic mass, progression despite radiation and 8 cycles of FOLFOX #Elevated LFTs Micro: 01/24 BCx x2: NGTD 01/22 BCx x2: Acinetobacter baumannii in 2/4 bottles (S amikacin, gent, tobra. Otherwise R) 01/20 UCx: Acinetobacter baumannii #1 (S amikacin, gent, tobra. Otherwise R to amp/sul, cefepime, cipro, kristen, pip/tazo, tetra, TMP/SMX)), Acinetobacter baumannii #2 (S amikacin, gent. I tobra. Otherwise R), E faecalis (S amp, vanc), E faecium (S vanc. R amp) 01/19 UCx: mixed maurice 01/19 BCx x2: Kleb pneumo in 1/4 bottles (R cipro, otherwise S), E faecium in 1/4 bottles (S vanc, R amp) Abx: Amp-sul 3 g q4h 01/22 - 01/24, 9 g q8h 01/24 - present Tigecycline 01/24 - present Dapto 01/24 - present Amikacin x 1 01/24 Meropenem 01/22 - 01/24 Vanc 01/19 - 01/24 Zosyn 01/20 - 01/22 Ceftriaxone 01/19 54 yo M with rectal cancer with colostomy s/p radiation and completed 8 cycles of FOLFOX (09/20/24) with disease progression despite treatment, schizophrenia, HTN, DM2 who presented on 01/19 with worsening confusion, hypotension, found to have polymicrobial bacteremia (carbapenem-resistant Acinetobacter baumannii, E faecium, Kleb pneumo) likely 2/2 bilateral hydroureteronephrosis from obstructing pelvic mass, s/p bilateral ureteral stents (01/20/25). Pt has several recent admissions for septic shock. Was admitted to [facility] 11/07-11/17 with septic shock and UTI, with MRSA and XDR Acinetobacter bacteremia (S to gent only). Unclear source of infection, and mediport was removed. Did have new mild bilateral hydroureteronephrosis due to obstructing mass. Was treated with vanc and Xacduro. PICC line was placed, and he was discharged to rehab on vancomycin x 2 weeks. KAYA with no vegetations. Then admitted to [facility] 12/01-12/22 with Citrobacter and vanc resistant E faecalis bacteremia, concern for infected necrotic components of rectal mass seen on CT, moderate bilateral hydronephrosis 2/2 mass effect. It appears he was discharged on suppressive amoxicillin and ciprofloxacin. Per colorectal surgery note from clinic visit on 01/17, felt to have likely unresectable rectal cancer, and that he was an overall poor surgical candidate given malnutrition and anemia and deconditioning. On presentation, pt was afebrile, HR 122, BP 86/60, RR 22, 95% on room air. Labs showed WBC 22.03, Hb 5.8, Cr 1.81, Na 121, K 6, lactate 5.3, procal 7.96. UA with 21-50 WBCs. CXR with suspected mild pulm edema. CTA AP with enlarging soft tissue rectal mass, chronic pancreatitis with new peripancreatic fat stranding and edema surrounding the pancreas c/w acute pancreatitis, and moderate bilateral hydroureteronephrosis with distension of the ureters extending to the pelvic mass. Pt was started on vanc, Zosyn, Levophed. Urology was consulted and took the pt to the OR on 01/20 for dilation of R mid ureter stricture and urethral stricture, bilateral ureteral stent placement. Urine from R kidney was aspirate and sent for culture, which grew carbapenem-resistant Acinetobacter baumannii, E faecalis, E faecium. Admission blood cultures growing E faecium in 1/4 bottles and Kleb pneumo in 1/4 bottles. Weaned off Levophed on 01/20 AM. Zosyn was changed to amp-sulbactam 3 g q4h and meropenem on 01/22. BCx from 01/22 growing Acinetobacter baumannii in 2/4 bottles. ID consulted on 01/24 and changed CRAB treatment to: amp-sulbactam 9 g q8h extended infusion over 4 hours and tigecycline, and gave one time dose of amikacin. Changed vanc to dapto for ease of dosing and also because of not fully trusting vanc susceptibility for E faecium. Also has a history of vanc-resistant E faecalis bacteremia in November 2024. LFTs noted to be elevated 01/25, downtrending 01/26. Recommendations: -For carbapenem-resistant Acinetobacter baumannii: -Continue amp-sulbactam 9 g q8h extended infusion over 4 hours -Continue tigecycline 100 mg IV q12h -Continue daptomycin 12 mg/kg IV q24h. Baseline CK 17 on 01/24/25 -Unfortunately with the large obstructing mass, pt is at high risk for recurrent infections/bacteremias. Can treat this acute illness with likely 7-14 days of IV antibiotics, but infection likely to recur -follow-up repeat blood cultures Will continue to follow. Admission and Anticipated Discharge Date Admission Date: January 19, 2025 Subjective This patient recommendation is based on a telemedicine consult request which was completed asynchronously through chart review and information provided by the primary physician. The patient was not seen or examined today. The evaluation is consultative in nature and all patient care and treatment decisions can either be accepted or rejected by the patient's primary hospital-based treating physician using their own independent medical judgment for their patient. Time Spent Reviewing Chart: 11 - 20 minutes WBC 17.83 AST, ALT, alk phos downtrending Afebrile Results & Data Vital Signs (Past 12 Hours) Vital Signs Temp Pulse Pulse Resp BP Pulse Ox O2 Del Method 01/26/25 10:39 Room Air 01/26/25 07:29 36.2 C L 116 H 18 107/70 98 Room Air 01/26/25 05:50 114 H 01/26/25 02:51 36.2 C L 132 H 18 102/69 90 Room Air Laboratory Results Short CBC 01/26/25 Range/Units 07:43 WBC 17.83 H (4.8-10.8) K/ul Hgb 9.2 L (14.0-18.0) g/dl Hct 27.8 L (42.0-52.0) % Plt Count 319 (130-400) K/uL BMP 01/26/25 07:43 Sodium 129 L Potassium 3.2 L Chloride 100 Carbon Dioxide 19 L BUN 21 Creatinine 0.72 Glucose 170 H Calcium 7.2 L Liver Function 01/26/25 Range/Units 07:43 Total Bilirubin 0.6 (0.2-1.0) mg/dl AST 29 (13-39) U/L ALT 61 H (7-52) U/L Alkaline Phosphatase 157 H (34-104) U/L Albumin 2.1 L (3.4-5.0) gm/dl Medications Administered Current Inpatient Medications Daptomycin 800 mg/ Syringe 16 mls @ 8 mls/min IV Q24H [facility]; Protocol Stop: 02/07/25 10:59 Last Admin: 01/25/25 10:29 Dose: 8 mls/min Tigecycline 100 mg/ Dextrose 110 mls @ 200 mls/hr IV Q12H [facility] Stop: 02/07/25 22:59 Last Infusion: 01/25/25 23:35 Dose: Infused Ampicillin Sodium/Sulbactam Sodium 9,000 mg/ Sodium Chloride 274 mls @ 68.5 mls/hr IV Q8H [facility] Stop: 02/07/25 15:59 Last Admin: 01/26/25 08:30 Dose: 68.5 mls/hr Magnesium Sulfate/Dextrose (Magnesium Sulfate / D5w) 1 gm in 100 mls @ 50 mls/hr IV Q2H [facility] Stop: 01/26/25 13:29 Midodrine (Midodrine Hcl 10 Mg Tab) 10 mg PO TIDM [facility] Stop: 02/19/25 07:59 Last Admin: 01/26/25 08:30 Dose: 10 mg
[2025-01-26] MEDS: MAGNESIUM SULFATE / D5W 1 GM/100 ML BAG IV SCH (12:31)
[2025-01-27 06:38] LABS: Hematocrit (blood only) 30.9 % (42.0-52.0); Hemoglobin 10.4 g/dl (14.0-18.0); Immature Granulocytes # (auto) 0.58 K/uL (0.01-0.20); Immature Granulocytes % (auto) 3.1 %; Mean Corpuscular Hemoglobin 26.8 pg (25.0-34.0); Mean Corpuscular Volume 79.6 fL (80.0-100.0); Platelet Count 352 K/uL (130-400); RDW Standard Deviation 46.9 fL (36.4-46.3); Red Blood Count 3.88 M/uL (4.70-6.10); White Blood Count 18.98 K/ul (4.8-10.8)
--- NOTE | 2025-01-27 07:01 | Billing Data ---
Date of Service January 26, 2025 Coding Level of Care Code 35181 SUB INP/OBS CARE MIN
[2025-01-27 07:03] LABS: Alanine Aminotransferase 46.0 U/L (7-52); Albumin Globulin Ratio 0.6 (0.9-2); Alkaline Phosphatase 164.0 U/L (34-104); Anion Gap 11.0 (3-11); Bilirubin,Total 0.7 mg/dl (0.2-1.0); Blood Urea Nitrogen 19.0 mg/dl (6-23); Calcium 7.3 mg/dl (8.6-10.3); Carbon Dioxide 18.0 mmol/L (21-32); Chloride 101.0 mmol/L (98-107); Creatinine Clr Calc Pharmacy 95.6 ml/min; Globulin 3.9 gm/dl (2.5-4.0); Glucose 119.0 mg/dl (70-99(Fasting)); Potassium 2.9 mmol/L (3.5-5.1); Sodium 130.0 mmol/L (136-145); Total Protein 6.2 gm/dl (6.0-8.3)
--- NOTE | 2025-01-27 10:51 | Infectious Disease Progress Nt ---
Date of Service January 27, 2025 Assessment & Plan (1) Carbapenem-resistant Acinetobacter baumannii infection: (2) Bacteremia due to Enterococcus: (3) Bacteremia due to Klebsiella pneumoniae: (4) Complicated UTI (urinary tract infection): (5) Rectal mass: Plan Problems: #Polymicrobial bacteremia 2/2 urinary obstruction: carbapenem-resistant Acinetobacter baumannii, E faecium (vanc-S), Kleb pneumo #Bilateral hydroureteronephrosis 2/2 pelvic mass s/p bilateral ureteral stents (01/20/25): UCx with Acinetobacter baumannii, E faecalis, E faecium #Rectal cancer with large pelvic mass, progression despite radiation and 8 cycles of FOLFOX #Elevated LFTs: improved Micro: 01/24 BCx x2: NGTD 01/22 BCx x2: Acinetobacter baumannii in 2/4 bottles (S amikacin, gent. I tobra. Otherwise R) 01/20 UCx: Acinetobacter baumannii #1 (S amikacin, gent, tobra. Otherwise R to amp/sul, cefepime, cipro, kristen, pip/tazo, tetra, TMP/SMX), Acinetobacter baumannii #2 (S amikacin, gent. I tobra. Otherwise R), E faecalis (S amp, vanc), E faecium (S vanc. R amp) 01/19 UCx: mixed maurice 01/19 BCx x2: Kleb pneumo in 1/4 bottles (R cipro, otherwise S), E faecium in 1/4 bottles (S vanc, R amp) Abx: Amp-sul 3 g q4h 01/22 - 01/24, 9 g q8h 01/24 - present Tigecycline 01/24 - present Dapto 01/24 - present Amikacin x 1 01/24 Meropenem 01/22 - 01/24 Vanc 01/19 - 01/24 Zosyn 01/20 - 01/22 Ceftriaxone 01/19 54 yo M with rectal cancer with colostomy s/p radiation and completed 8 cycles of FOLFOX (09/20/24) with disease progression despite treatment, schizophrenia, HTN, DM2 who presented on 01/19 with worsening confusion, hypotension, found to have polymicrobial bacteremia (carbapenem-resistant Acinetobacter baumannii, E faecium, Kleb pneumo) likely 2/2 bilateral hydroureteronephrosis from obstructing pelvic mass, s/p bilateral ureteral stents (01/20/25). Pt has several recent admissions for septic shock. [facility] with [facility] shock and UTI, with MRSA and XDR Acinetobacter bacteremia (S to gent only). Unclear source of infection, and mediport was removed. Did have new mild bilateral hydroureteronephrosis due to obstructing mass. Was treated with vanc and Xacduro. PICC line was placed, and he was discharged to rehab on vancomycin x 2 weeks. KAYA with no vegetations. Then admitted to [facility] 12/01-12/22 with Citrobacter and vanc resistant E faecalis bacteremia, concern for infected necrotic components of rectal mass seen on CT, moderate bilateral hydronephrosis 2/2 mass effect. It appears he was discharged on suppressive amoxicillin and ciprofloxacin. Per colorectal surgery note from clinic visit on 01/17, felt to have likely unresectable rectal cancer, and that he was an overall poor surgical candidate given malnutrition and anemia and deconditioning. On presentation, pt was afebrile, HR 122, BP 86/60, RR 22, 95% on room air. Labs showed WBC 22.03, Hb 5.8, Cr 1.81, Na 121, K 6, lactate 5.3, procal 7.96. UA with 21-50 WBCs. CXR with suspected mild pulm edema. CTA AP with enlarging soft tissue rectal mass, chronic pancreatitis with new peripancreatic fat stranding and edema surrounding the pancreas c/w acute pancreatitis, and moderate bilateral hydroureteronephrosis with distension of the ureters extending to the pelvic mass. Pt was started on vanc, Zosyn, Levophed. Urology was consulted and took the pt to the OR on 01/20 for dilation of R mid ureter stricture and urethral stricture, bilateral ureteral stent placement. Urine from R kidney was aspirate and sent for culture, which grew carbapenem-resistant Acinetobacter baumannii, E faecalis, E faecium. Admission blood cultures growing E faecium in 1/4 bottles and Kleb pneumo in 1/4 bottles. Weaned off Levophed on 01/20 AM. Zosyn was changed to amp-sulbactam 3 g q4h and meropenem on 01/22. BCx from 01/22 growing Acinetobacter baumannii in 2/4 bottles. ID consulted on 01/24 and changed CRAB treatment to: amp-sulbactam 9 g q8h extended infusion over 4 hours and tigecycline, and gave one time dose of amikacin. Changed vanc to dapto for ease of dosing and also because of not fully trusting vanc susceptibility for E faecium. Also has a history of vanc-resistant E faecalis bacteremia in November 2024. LFTs noted to be elevated 01/25, downtrending 01/26. Recommendations: -For carbapenem-resistant Acinetobacter baumannii: -Continue amp-sulbactam 9 g q8h extended infusion over 4 hours -Continue tigecycline 100 mg IV q12h -Continue daptomycin 12 mg/kg IV q24h. Baseline CK 17 on 01/24/25. Next check ordered for 01/31/25 -Can continue above antibiotics through 02/02 to complete a 10 day course -Unfortunately with the large obstructing mass, pt is at high risk for recurrent infections/bacteremias Will sign off. Admission and Anticipated Discharge Date Admission Date: January 19, 2025 Subjective This patient recommendation is based on a telemedicine consult request which was completed asynchronously through chart review and information provided by the primary physician. The patient was not seen or examined today. The evaluation is consultative in nature and all patient care and treatment decisions can either be accepted or rejected by the patient's primary hospital-based treating physician using their own independent medical judgment for their patient. Time Spent Reviewing Chart: 11 - 20 minutes Afebrile WBC 18.98 No acute events Results & Data Vital Signs (Past 12 Hours) Vital Signs Temp Pulse Pulse Resp BP BP Pulse Ox 01/27/25 07:37 36.4 C L 123 H 20 114/73 98 01/27/25 05:38 117 H 01/27/25 03:00 36.8 C 113 H 18 117/72 96 O2 Del Method 01/27/25 07:37 Room Air 01/27/25 05:38 01/27/25 03:00 Room Air Laboratory Results Short CBC 01/27/25 Range/Units 05:37 WBC 18.98 H (4.8-10.8) K/ul Hgb 10.4 L (14.0-18.0) g/dl Hct 30.9 L (42.0-52.0) % Plt Count 352 (130-400) K/uL BMP 01/27/25 05:37 Sodium 130 L Potassium 2.9 L Chloride 101 Carbon Dioxide 18 L BUN 19 Creatinine 0.77 Glucose 119 H Calcium 7.3 L Liver Function 01/27/25 Range/Units 05:37 Total Bilirubin 0.7 (0.2-1.0) mg/dl AST 24 (13-39) U/L ALT 46 (7-52) U/L Alkaline Phosphatase 164 H (34-104) U/L Albumin 2.3 L (3.4-5.0) gm/dl Medications Administered Current Inpatient Medications Daptomycin 800 mg/ Syringe 16 mls @ 8 mls/min IV Q24H [facility]; Protocol Stop: 02/07/25 10:59 Last Admin: 01/26/25 12:30 Dose: 8 mls/min Tigecycline 100 mg/ Dextrose 110 mls @ 200 mls/hr IV Q12H [facility] Stop: 02/07/25 22:59 Last Infusion: 01/27/25 00:10 Dose: Infused Ampicillin Sodium/Sulbactam Sodium 9,000 mg/ Sodium Chloride 274 mls @ 68.5 mls/hr IV Q8H [facility] Stop: 02/07/25 15:59 Last Admin: 01/27/25 07:37 Dose: 68.5 mls/hr Midodrine (Midodrine Hcl 10 Mg Tab) 10 mg PO TIDM [facility] Stop: 02/19/25 07:59 Last Admin: 01/27/25 07:37 Dose: 10 mg
--- NOTE | 2025-01-27 13:02 | Palliative Family Discussion ---
Date of Service January 27, 2025 Patient Directed Conference Time of [id number], 11am-12pm, 1215-1235pm (30+60+20 = 110min) Participants: Elsi Richardson DNP Patient participation: yes Patient Support System: sister Jeannie Other Healthcare Provider Participation: None Meeting Location: telephonic and bedside Advanced Directive available: No The patient's surrogate medical decision maker participated: yes, Jeannie/sister A family meeting was held for KEVIN DENNEY. This meeting was necessary for determining the appropriate course of treatment. Topics of Discussion Topics of Discussion: I called [place]/sister for telephonic ACP x 30 min at [phone]: we had a long conversation about options for dc. She won't be able to get here till later this afternoon/early evening due to a change in work but I have offered to be available for a telemed family meeting at 6/630pm if they want. We discussed hospice/how it works/what it does & does not provide as well as SNF placement. I told her SNF would come with rehab then ?conversion to LTC. She felt he would want to come back to [facility] if his infection comes back for ongoing Abtx We discussed why infection would return/Abtx would not be effective as cancer progresses. She asked if he could come here for EOL care and I reviewed the need to be in a chronic care facility when chronic care is needed and the hospital is for high level acute/emergent care. She told me the mother took care of another family member at home on hospice and has signif PTSD and "My Mom won't survive caring for my brother at home with hospice, she is a nervous wreck and it will destroy her. She has been the calmest and happiest I have seen her visiting him here" Jeannie also said they don't have a lot of other support but the sister who "lives 4 miles away is a nurse but lost her car so does not have a way to get to the house but if she could then she'd be able to help care for him and it would be easy for her as a nurse to do it." I am going to see pt later today and will update the group and Jeannie after speaking with him. I then had a 60 min face to face ACP 11a-12pm with Mr Denney and updated his sister Jeannie again. He is in agreement for completing Abtx here then SNF trial of rehab. If he acutely worsens at SNF then pivot to [facility] +/- hospice at SNF. If he gets through rehab at SNF then plan for dc home with hospice from SNF. In the meantime, family will work on logistics of caregiver support - the RN sister is 4 miles away but lost her car so they need to figure out a plan for getting her to and from the home (he and parents share a home) and if they can figure that out then he will have a caregiver in addition to his mom. I did share with pt the emotional intensity and burden on Mom with caring for him and his ailing parkinson's father fabi knowing his mom already care for another family member at home with hospice - it would be a second family member dying in her house with hospice who is her son. He admitted it is a lot, but he still wants to get home after SNF if he can IF family can work out the caregiver situation. he recognized things may acutely worsen even while at SNF and in that case, would pivot to [facility] at SNF. Family will be in this evening. I called Jeannie for another 20min telephonic ACP discussion 1215-1235pm and updated her re: the above conversation. Jeannie wanted to push for a final decision however I encouraged her to give him the day to absorb all of this, and I agreed to be available tomorrow morning for a telemed family meeting if they need one. Jeannie will let nursing know if this is desired and a time that wor ks for them. I told her I am free tomorrow morning until 2pm. Other Content of Meetin. Opportunity given for participants to speak and ask questions. 2. Participants were assured of attention to patient comfort. 3. Reassurance provided. 4. Support was provided for informed, good-maryellen decisions. 5. Emotions expressed by family were acknowledged and addressed. 6. Discussed changes pt may move through in the dying process including but not limited to sleeping more, disorientation when awake, restlessness, diminished senses/inability to respond to stimulus although ability to be aware of them remains intact longer, and changes in body temperatures, skin changes/mottling/cyanosis, respiratory pattern changes, and oral secretions. Family verbalized understanding. The goal is to assure a peaceful . TS 110min ACP Thank you for allowing us to participate in the ongoing care of this patient. Please page with any additional concerns. Tatyana Richardson DNP Director, Palliative Medicine
--- NOTE | 2025-01-27 17:39 | Hospitalist Progress Note ---
Date of Service January 27, 2025 Assessment & Plan (1) Carbapenem-resistant Acinetobacter baumannii infection: (2) Bacteremia due to Enterococcus: (3) Bacteremia due to Klebsiella pneumoniae: (4) Complicated UTI (urinary tract infection): (5) Rectal mass: (6) Electrolyte depletion: (7) Transaminitis: Plan 54 yo M with rectal cancer with colostomy s/p radiation and completed 8 cycles of FOLFOX (09/20/24) with disease progression despite treatment, schizophrenia, HTN, DM2 who presented on 01/19 with worsening confusion, hypotension, found to have polymicrobial bacteremia (XDR Acinetobacter baumannii, E faecium, Kleb pneumo) likely 2/2 bilateral hydroureteronephrosis from obstructing pelvic mass, s/p bilateral ureteral stents (01/20/25). Initially in the ICU briefly on 01/20 but was downgraded when code status from full code to DNR/DNI by patient sister who is POA. Etiology of severe septic shock with end-organ failure (e.g., acute kidney injury) was due to catheter-associated UTI with hematogenous dissemination. Severe septic shock has RESOLVED, and so too has end-organ failure (e.g., acute kidney injury) RESOLVED, as shown above by the progressive decline in creatinine levels. In addition to empiric antibiotics patient has received IV fluid rehydration therapy Severe sepsis with septic shock/UTI - Septic shock has resolved with MAP > 65, and evidence of end organ damage has resolved Cr improvements - Ucx positive for 2 strains A. baumannii, E. Faecium and E. Facaelis - Bcx positive for A. baumannii/nosoco - Lactic acid, procalcitonin, and WBC counts downtrending and vitals hemodynamically stable - Patient has been on several abx therapy including ceftriaxone and Zosyn; This was switched to Unasyn, meropenem and vancomycin with the rationale supporting coverage for Enterococcus with vancomycin and A. Baumannii with Unasyn and meropenem - Due to positive Bcx with complex organism, ID consulted appreciate recs stated below: -For carbapenem-resistant Acinetobacter baumannii: -Changed amp-sulbactam to 9 g q8h extended infusion over 4 hours -Started tigecycline 200 mg x 1, followed by 100 mg q12h -Ordered a 1 time dose of amikacin 15 mg/kg -Changed vanc to daptomycin 12 mg/kg IV q24h (easier to dose, and do not always trust vanc susceptibility for E faecium. - Increased WBCs to 18.93, lactate: 2.7, Pro-calcitonin: 4.04 and CRP: 22, will order new blood cultures with increase in inflammatory response - Continue to monitor with CBC, procalcitonin, CRP Hx of rectal mass CT angiography abdomen pelvis showing significant increase in size compared to previous with extension of rectal mass to skin and invasion of obturator and gluteal muscles Was told up at [facility] that he was not currently a surgical candidate Patient with previous chemoradiation treatments and after recent DNR/DNI transition will call POA and attempt goals of care discussion for probably hospice/palliative intervention Palliative care consult placed, appreciate recommendations: Family will have a discussion tonight/tomorrow and will reach out to physicians for GOC discussion. Patient options are to finish abx therapy before return to home, stop abx therapy and begin comfort measures at home, or try to get coverage for IV abx and home health to get treated from home. Transaminitis - Acutely worsened 01/25, AST: 164, ALT: 129, Alk Phos: 217 - 01/26 LFTs improving, AST: 29, ALT: 61, and Alk Phos: 157 - Continue to monitor, CMP QAM Acute kidney injury- Resolved Secondary to hypovolemia associated with anemia and dehydration Repeat laboratories in a.m. after more aggressive fluid resuscitation Electrolyte disturbances/hyperkalemia/hypomagnesemia- No signs of ectopy on monitor in the ED Potassium 5.8 on admission, likely secondary to acute kidney injury Repeat in a.m. after having received 2 L normal saline and PRBCs Magnesium sulfate 1 g IV for magnesium of 1.5 Diabetes mellitus- Hold metformin ICU protocol-resistant E faecalis bacteremia in November 2024). Baseline CK 17 on 01/24/25 -Continue monitoring Bcxs Admission and Anticipated Discharge Date Admission Date: January 19, 2025 Supervising Physician Co-Signing Physician Notes Resident Physician Supervision Note: I personally examined the patient and verified all cornelius points of history and exam, discussed case, and agree with decision making with Dr. Hayes I discussed the case with the resident and agree with the findings and plan as documented in the note. Any exceptions or clarifications are listed here: First day meeeting patient, he is pleasant and I confirmed thatl he understands that he has cancer and is not treatable as he has decided with his family not to pursue additional treatments and has progressed rapidly protruding through his skin from the ordinal side of his rectum. Discussion about transition to home hospice versus continue with active treatment. Patient has a very fastidious Acinetobacter infection and is on multiple antibiotics given his carbapenem resistant. Involving palliative care and discussions at this time. Palliative care will return Thursday. 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 Likely origin of source of infection. Continue antibiotics well goals of care discussions being undertaken. Patient himself is voiced his desire to go home with understanding that he will eventually pass away from his cancer. WBC trending upward, discussed with ID. Continue current antibiotics, may need to switch regimen if continues to worsen. Documented By: Shaji Shearer MD Subjective Patient remains afebrile without any acute events overnight and is not in acute distress. Patient denies chest pain, palpitations, abdominal pain, nausea, vomiting, headaches, fevers, and chills. Patient does appear more sweaty and looks uncomfortable, but reports that he feels fine. Physical Exam Physical Exam: General: patient resting comfortably, NAD, non-toxic in appearance, answers questions appropriately. Skin: warm, dry, intact HEENT: NC/AT, anicteric sclera, conjunctiva without injection, moist mucus membranes. Heart: +S1/S2, regular, no m/r/g Lungs: equal air entry bilaterally, no rales/rhonchi/wheezes Abd: +BS, soft, NT/ND Ext: warm, no clubbing/cyanosis or edema Neuro: nonfocal, speech intact, no facial droop, moving all extremities. Results & Data Results & Data Vital Signs (Past 12 Hours) Vital Signs Temp Pulse Pulse Resp BP Pulse Ox O2 Del Method 01/27/25 16:00 36.6 C 99 H 16 123/75 96 Room Air 01/27/25 13:06 83 01/27/25 07:37 36.4 C L 123 H 20 114/73 98 Room Air 01/27/25 05:38 117 H Resident Activity Tracking Resident Involvement: Resident Care Provided Care Provided: Adult [facility]
[2025-01-28] MEDS: POTASSIUM CHLORIDE CRTAB 20 MEQ TABCR PO STA (08:11)
[2025-01-28 08:22] LABS: Hematocrit (blood only) 33.7 % (42.0-52.0); Hemoglobin 11.0 g/dl (14.0-18.0); Immature Granulocytes # (auto) 0.41 K/uL (0.01-0.20); Immature Granulocytes % (auto) 2.3 %; Mean Corpuscular Hemoglobin 25.8 pg (25.0-34.0); Mean Corpuscular Volume 79.1 fL (80.0-100.0); Platelet Count 338 K/uL (130-400); RDW Standard Deviation 46.9 fL (36.4-46.3); Red Blood Count 4.26 M/uL (4.70-6.10); White Blood Count 17.81 K/ul (4.8-10.8)
[2025-01-28 08:28] LABS: Alanine Aminotransferase 36.0 U/L (7-52); Albumin Globulin Ratio 0.5 (0.9-2); Alkaline Phosphatase 188.0 U/L (34-104); Anion Gap 10.0 (3-11); Bilirubin,Total 0.8 mg/dl (0.2-1.0); Blood Urea Nitrogen 15.0 mg/dl (6-23); Calcium 7.3 mg/dl (8.6-10.3); Carbon Dioxide 19.0 mmol/L (21-32); Chloride 101.0 mmol/L (98-107); Creatinine Clr Calc Pharmacy 102.2 ml/min; Globulin 4.1 gm/dl (2.5-4.0); Glucose 112.0 mg/dl (70-99(Fasting)); Magnesium 1.6 mg/dl (1.7-2.4); Potassium 2.7 mmol/L (3.5-5.1); Sodium 130.0 mmol/L (136-145); Total Protein 6.3 gm/dl (6.0-8.3)
[2025-01-28] MEDS: MAGNESIUM SULFATE / D5W 1 GM/100 ML BAG IV SCH (08:29)
--- NOTE | 2025-01-28 09:48 | XRay Report ---
KUB HISTORY: worsening labs. constipation/ stercoral colitis? COMPARISON STUDY: 01/19/2025 CT FINDINGS: There are interval well positioned appearing bilateral ureteral stents. Urinary bladder cat heter is stable. Left lower quadrant ostomy is better seen on the prior CT. There is mild retained st ool. No bowel obstruction seen. No gross free air. IMPRESSION: Mild retained stool with no specific evidence of bowel obstruction seen. ACT 112: Negative or not required by law. The above report was generated using voice recognition software. It may contain grammatical, syntax o r spelling errors. Electronically signed by: Kehinde Thorpe M.D. 01/28/2025 9:47 AM
--- NOTE | 2025-01-28 12:29 | Hospitalist Progress Note ---
Date of Service January 28, 2025 Assessment & Plan (1) Carbapenem-resistant Acinetobacter baumannii infection: (2) Bacteremia due to Enterococcus: (3) Bacteremia due to Klebsiella pneumoniae: (4) Complicated UTI (urinary tract infection): (5) Rectal mass: (6) Electrolyte depletion: (7) Transaminitis: Plan 54 yo M with rectal cancer with colostomy s/p radiation and completed 8 cycles of FOLFOX (09/20/24) with disease progression despite treatment, schizophrenia, HTN, DM2 who presented on 01/19 with worsening confusion, hypotension, found to have polymicrobial bacteremia (XDR Acinetobacter baumannii, E faecium, Kleb pneumo) likely 2/2 bilateral hydroureteronephrosis from obstructing pelvic mass, s/p bilateral ureteral stents (01/20/25). Initially in the ICU briefly on 01/20 but was downgraded when code status from full code to DNR/DNI by patient sister who is POA. Etiology of severe septic shock with end-organ failure (e.g., acute kidney injury) was due to catheter-associated UTI with hematogenous dissemination. Severe septic shock has RESOLVED, and so too has end-organ failure (e.g., acute kidney injury) RESOLVED, as shown above by the progressive decline in creatinine levels. In addition to empiric antibiotics patient has received IV fluid rehydration therapy Severe sepsis with septic shock/UTI - Septic shock has resolved with MAP > 65, and evidence of end organ damage has resolved Cr improvements - Ucx positive for 2 strains A. baumannii, E. Faecium and E. Facaelis - Bcx positive for A. baumannii/nosoco - Lactic acid, procalcitonin, and WBC counts downtrending and vitals h emodynamically stable - Patient has been on several abx therapy including ceftriaxone and Zosyn; This was switched to Unasyn, meropenem and vancomycin with the rationale supporting coverage for Enterococcus with vancomycin and A. Baumannii with Unasyn and meropenem - Due to positive Bcx with complex organism, ID consulted appreciate recs stated below: - For carbapenem-resistant Acinetobacter baumannii: - Changed amp-sulbactam to 9 g q8h extended infusion over 4 hours - Started tigecycline 200 mg x 1, followed by 100 mg q12h -Ordered a 1 time dose of amikacin 15 mg/kg -Changed vanc to daptomycin 12 mg/kg IV q24h -Abx course recommended until 02/02 for a total 10 day course since abx change for gram negative bacteremia/sepsis - Increased WBCs to 18.93, lactate: 2.7, Pro-calcitonin: 4.04 and CRP: 22 trending up since Abx change 01/24, will order new blood cultures with increase in inflammatory response; Inflammatory markers have begun to trend down today 01/28 WBC: 17.81, lactate reflux: 1.8, Procal: 3.94, CRP: 19.57 - Monitor Bcx, appreciate continued ID recs - Stool studies for C.diff toxin ordered - Continue to monitor with CBC, procalcitonin, CRP, CMP QAM Colorectal carcinoma CT angiography abdomen pelvis showing significant increase in size compared to previous with extension of rectal mass to skin and invasion of obturator and gluteal muscles Was told up at [facility] that he was not currently a surgical candidate Patient with previous chemoradiation treatments and after recent DNR/DNI tr ansition will call POA and attempt goals of care discussion for probably hospice/palliative intervention Palliative care consult placed, appreciate recommendations: Family have discussed that they are not ready to care for patient at home due to significant stressors and burden on mother who would be primary timber selector. Patient will complete Abx therapy at [facility] through 02/02 and then transfer to SNF for further rehab. If rehab is successful in SNF and condition remains stable then home with hospice care vs if unsuccessful [facility] +/- hospice at SNF Transaminitis - Acutely worsened 01/25, AST: 164, ALT: 129, Alk Phos: 217 - 01/26 LFTs improving, AST: 29, ALT: 61, and Alk Phos: 157 - Continue to monitor, CMP QAM BUDYD Resolved Secondary to hypovolemia associated with anemia and dehydration Repeat laboratories in a.m. after more aggressive fluid resuscitation Electrolyte disturbances/hyperkalemia/hypomagnesemia- No signs of ectopy on monitor in the ED Potassium 5.8 on admission, likely secondary to acute kidney injury Repeat in a.m. after having received 2 L normal saline and PRBCs Continue Mg/K+ replenishment as needed Diabetes mellitus- Hold metformin ICU protocol-resistant E faecalis bacteremia in November 2024). Baseline CK 17 on 01/24/25 -Continue monitoring Bcxs Admission and Anticipated Discharge Date Admission Date: January 19, 2025 Supervising Physician Co-Signing Physician Notes Resident Physician Supervision Note: I personally examined the patient and verified all cornelius points of history and exam, discussed case, and agree with decision making with Dr. Hayes I discussed the case with the resident and agree with the findings and plan as documented in the note. Any exceptions or clarifications are listed here: First day meeeting patient, he is pleasant and I confirmed thatl he understands that he has cancer and is not treatable as he has decided with his family not to pursue additional treatments and has progressed rapidly protruding through his skin from the ordinal side of his rectum. Discussion about transition to home hospice versus continue with active treatment. Patient has a very fastidious Acinetobacter infection and is on multiple antibiotics given his carbapenem resistant. Involving palliative care and discussions at this time. 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 Likely origin of source of infection. Continue antibiotics well goals of care discussions being undertaken. Patient himself is voiced his desire to go home with understanding that he will eventually pass away from his cancer. WBC appears stable but inflammatory markers appear better. Continue current antibiotic. Documented By: Shaji Shearer MD Subjective Patient remains afebrile without any acute events overnight and is not in acute distress. Patient denies chest pain, palpitations, abdominal pain, nausea, vomiting, headaches, fevers, and chills. Patient does report that his mood is down after talks with family and palliative care and discussions about SNF rehab and he expresses frustration that he has been in the hospital for so long and will require extended stay and SNF therapy prior to potential return home. Patient is afebrile and hemodynamically stable. Physical Exam Physical Exam: General: patient resting comfortably, NAD, non-toxic in appearance, answers questions appropriately. Skin: warm, dry, intact HEENT: NC/AT, anicteric sclera, conjunctiva without injection, moist mucus membranes. Heart: +S1/S2, regular, no m/r/g Lungs: equal air entry bilaterally, no rales/rhonchi/wheezes Abd: +BS, soft, NT/ND Ext: warm, no clubbing/cyanosis or edema Neuro: nonfocal, speech intact, no facial droop, moving all extremities. Results & Data Results & Data Vital Signs (Past 12 Hours) Vital Signs Temp Pulse Pulse Resp BP BP Pulse Ox 01/28/25 11:30 36.5 C 115 H 30 H 123/87 100 01/28/25 08:16 36.3 C L 131 H 30 H 114/73 98 01/28/25 06:16 119 H 01/28/25 02:36 112 H 18 129/77 98 O2 Del Method 01/28/25 11:30 Room Air 01/28/25 08:16 Room Air 01/28/25 06:16 01/28/25 02:36 Room Air Resident Activity Tracking Resident Involvement: Resident Care Provided Care Provided: Adult Hospital Medicine
[2025-01-29 05:14] LABS: Cdiff Toxin B Gene (2yr or >) Negative Cdiff Gene (Neg)
[2025-01-29 07:26] LABS: Hematocrit (blood only) 30.9 % (42.0-52.0); Hemoglobin 10.1 g/dl (14.0-18.0); Immature Granulocytes # (auto) 0.42 K/uL (0.01-0.20); Immature Granulocytes % (auto) 2.0 %; Mean Corpuscular Hemoglobin 25.8 pg (25.0-34.0); Mean Corpuscular Volume 78.8 fL (80.0-100.0); Platelet Count 326 K/uL (130-400); RDW Standard Deviation 47.7 fL (36.4-46.3); Red Blood Count 3.92 M/uL (4.70-6.10); White Blood Count 20.84 K/ul (4.8-10.8)
[2025-01-29 07:51] LABS: Alanine Aminotransferase 37.0 U/L (7-52); Albumin Globulin Ratio 0.6 (0.9-2); Alkaline Phosphatase 241.0 U/L (34-104); Anion Gap 10.0 (3-11); Bilirubin,Total 0.8 mg/dl (0.2-1.0); Blood Urea Nitrogen 14.0 mg/dl (6-23); Calcium 7.1 mg/dl (8.6-10.3); Carbon Dioxide 18.0 mmol/L (21-32); Chloride 101.0 mmol/L (98-107); Creatinine Clr Calc Pharmacy 111.7 ml/min; Globulin 3.8 gm/dl (2.5-4.0); Glucose 127.0 mg/dl (70-99(Fasting)); Magnesium 1.7 mg/dl (1.7-2.4); Potassium 2.8 mmol/L (3.5-5.1); Sodium 129.0 mmol/L (136-145); Total Protein 5.9 gm/dl (6.0-8.3)
[2025-01-29] MEDS: POTASSIUM CHLORIDE CRTAB 20 MEQ TABCR PO SCH (10:22)
[2025-01-29] MEDS: POTASSIUM CHLORIDE / WTR 10 MEQ/100 ML PLCT IV SCH (10:25)
[2025-01-29] MEDS: MAGNESIUM SULFATE / D5W 1 GM/100 ML BAG IV SCH (11:51)
--- NOTE | 2025-01-29 13:08 | Hospitalist Progress Note ---
Date of Service January 29, 2025 Assessment & Plan (1) Carbapenem-resistant Acinetobacter baumannii infection: (2) Bacteremia due to Enterococcus: (3) Bacteremia due to Klebsiella pneumoniae: (4) Complicated UTI (urinary tract infection): (5) Rectal mass: (6) Electrolyte depletion: (7) Transaminitis: Plan 54 yo M with rectal cancer with colostomy s/p radiation and completed 8 cycles of FOLFOX (09/20/24) with disease progression despite treatment, schizophrenia, HTN, DM2 who presented on 01/19 with worsening confusion, hypotension, found to have polymicrobial bacteremia (XDR Acinetobacter baumannii, E faecium, Kleb pneumo) likely 2/2 bilateral hydroureteronephrosis from obstructing pelvic mass, s/p bilateral ureteral stents (01/20/25). Initially in the ICU briefly on 01/20 but was downgraded when code status from full code to DNR/DNI by patient sister who is POA. Etiology of severe septic shock with end-organ failure (e.g., acute kidney injury) was due to catheter-associated UTI with hematogenous dissemination. Severe septic shock has RESOLVED, and so too has end-organ failure (e.g., acute kidney injury) RESOLVED, as shown above by the progressive decline in creatinine levels. In addition to empiric antibiotics patient has received IV fluid rehydration therapy Severe sepsis with septic shock/UTI - Septic shock has resolved with MAP > 65, and evidence of end organ damage has resolved Cr improvements - Ucx positive for 2 strains A. baumannii, E. Faecium and E. Facaelis - Bcx positive for A. baumannii/nosoco - Lactic acid, procalcitonin, and WBC counts downtrending and vitals h emodynamically stable - Patient has been on several abx therapy including ceftriaxone and Zosyn; This was switched to Unasyn, meropenem and vancomycin with the rationale supporting coverage for Enterococcus with vancomycin and A. Baumannii with Unasyn and meropenem - Due to positive Bcx with complex organism, ID consulted appreciate recs stated below: - For carbapenem-resistant Acinetobacter baumannii: - Changed amp-sulbactam to 9 g q8h extended infusion over 4 hours - Started tigecycline 200 mg x 1, followed by 100 mg q12h -Ordered a 1 time dose of amikacin 15 mg/kg -Changed vanc to daptomycin 12 mg/kg IV q24h -Abx course recommended until 02/02 for a total 10 day course since abx change for gram negative bacteremia/sepsis - Increased WBCs to 18.93, lactate: 2.7, Pro-calcitonin: 4.04 and CRP: 22 trending up since Abx change 01/24, will order new blood cultures with increase in inflammatory response; Inflammatory markers have begun to trend down today 01/28 WBC: 17.81, lactate reflux: 1.8, Procal: 3.94, CRP: 19.57. WBCs/inflammatory markers increased again this AM 01/29, CRP downtrended. Will re-visit abx recommendations and evaluate if course should be modified with ID tomorrow - Monitor Bcx, appreciate continued ID recs - Stool studies for C.diff toxin ordered - Continue to monitor with CBC, procalcitonin, CRP, CMP QAM Colorectal carcinoma CT angiography abdomen pelvis showing significant increase in size compared to previous with extension of rectal mass to skin and invasion of obturator and gluteal muscles Was told up at [facility], [place] that he was not currently a surgical candidate Patient with previous chemoradiation treatments and after recent DNR/DNI transition will call POA and attempt goals of care discussion for probably hospice/palliative intervention Palliative care consult placed, appreciate recommendations: Family have discussed that they are not ready to care for patient at home due to significant stressors and burden on mother who would be primary motor coach supervisor. Patient will complete Abx therapy at [facility] through 02/02 and then transfer to SNF for further rehab. If rehab is successful in SNF and condition remains stable then home with hospice care vs if unsuccessful [employer] +/- hospice at SNF Transaminitis - Acutely worsened 01/25, AST: 164, ALT: 129, Alk Phos: 217 - 01/26 LFTs improving, AST: 29, ALT: 61, and Alk Phos: 157 - Continue to monitor, CMP QAM BUDDY Resolved Secondary to hypovolemia associated with anemia and dehydration Repeat laboratories in a.m. after more aggressive fluid resuscitation Electrolyte disturbances/hyperkalemia/hypomagnesemia- No signs of ectopy on monitor in the ED Potassium 5.8 on admission, likely secondary to acute kidney injury Repeat in a.m. after having received 2 L normal saline and PRBCs Continue Mg/K+ replenishment as needed - evaluate with AM CMP and Mg studies Diabetes mellitus- Hold metformin ICU protocol-resistant E faecalis bacteremia in November 2024). Baseline CK 17 on 01/24/25 -Continue monitoring Bcxs Admission and Anticipated Discharge Date Admission Date: January 19, 2025 Supervising Physician Co-Signing Physician Notes Resident Physician Supervision Note: I personally examined the patient and verified all cornelius points of history and exam, discussed case, and agree with decision making with Dr. Hayes I discussed the case with the resident and agree with the findings and plan as documented in the note. Any exceptions or clarifications are listed here: Patient continues to be pleasant.But reports no significant improvement or worsening of his symptoms. He understands that he has cancer and is not treatable as he has decided with his family not to pursue additional treatments and has progressed rapidly protruding through his skin from the ordinal side of his rectum. Discussion about transition to home hospice versus continue with active treatment. Patient has a very fastidious Acinetobacter infection and is on multiple antibiotics given his carbapenem resistant. Involving palliative care and discussions at this time. 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 Likely origin of source of infection. Continue antibiotics well goals of care discussions being undertaken. Patient himself is voiced his desire to go home with understanding that he will eventually pass away from his cancer. Inflammatory markers continue to improve, but WBC again trending in the wrong direction. Cultures have been negative. Will need to discuss with ID tomorrow to discuss if resuming amikacin with gentamicin and continue for 7 days is reasonable. Continue current antibiotic. Documented By: Shaji Shearer MD Subjective Patient remains afebrile without any acute events overnight and is not in acute distress. Patient denies chest pain, palpitations, abdominal pain, nausea, vomiting, headaches, fevers, and chills. Patient is resting this morning and does not mention any other acute complaints. Patient is afebrile and hemodynamically stable. Physical Exam Physical Exam: General: patient resting comfortably, NAD, non-toxic in appearance, answers questions appropriately. Skin: warm, dry, intact HEENT: NC/AT, anicteric sclera, conjunctiva without injection, moist mucus membranes. Heart: +S1/S2, regular, no m/r/g Lungs: equal air entry bilaterally, no rales/rhonchi/wheezes Abd: +BS, soft, NT/ND Ext: warm, no clubbing/cyanosis or edema Neuro: nonfocal, speech intact, no facial droop, moving all extremities. Results & Data Results & Data Vital Signs (Past 12 Hours) Vital Signs Temp Pulse Pulse Resp BP Pulse Ox O2 Del Method 01/29/25 11:47 36.4 C L 106 H 18 144/92 H 99 Room Air 01/29/25 08:07 36.4 C L 117 H 18 121/84 97 Room Air 01/29/25 07:20 Room Air 01/29/25 07:06 120 H 01/29/25 02:00 36.4 C L 118 H 18 122/82 99 Room Air Resident Activity Tracking Resident Involvement: Resident Care Provided Care Provided: Adult Hospital Medicine
[2025-01-29] MEDS: ONDANSETRON INJ 2 MG/ML 2 ML VIAL IV STA (19:36)
[2025-01-29] MEDS: PROCHLORPERAZINE 10 MG in SYRINGE 8 ML IV ONE (20:55)
[2025-01-29] MEDS: LACTATED RINGER'S 1,000 ML IV SCH (20:56)
[2025-01-29] MEDS: LACTATED RINGER'S 500 ML IV ONE (22:28)
[2025-01-29] MEDS: MAGNESIUM SULFATE / D5W 1 GM/100 ML BAG IV ONE (23:22)
[2025-01-29 23:34] LABS: Anion Gap 10.0 (3-11); Blood Urea Nitrogen 14.0 mg/dl (6-23); Calcium 7.0 mg/dl (8.6-10.3); Carbon Dioxide 19.0 mmol/L (21-32); Chloride 101.0 mmol/L (98-107); Creatinine Clr Calc Pharmacy 99.6 ml/min; Glucose 198.0 mg/dl (70-99(Fasting)); Magnesium 1.7 mg/dl (1.7-2.4); Potassium 3.2 mmol/L (3.5-5.1); Sodium 130.0 mmol/L (136-145)
[2025-01-30] MEDS: POTASSIUM CHLORIDE / WTR 10 MEQ/100 ML PLCT IV SCH (01:13)
[2025-01-30] MEDS: MAGNESIUM SULFATE / D5W 1 GM/100 ML BAG IV SCH (01:13)
[2025-01-30 08:06] LABS: Hematocrit (blood only) 28.5 % (42.0-52.0); Hemoglobin 9.2 g/dl (14.0-18.0); Immature Granulocytes # (auto) 0.27 K/uL (0.01-0.20); Immature Granulocytes % (auto) 1.2 %; Mean Corpuscular Hemoglobin 26.3 pg (25.0-34.0); Mean Corpuscular Volume 81.4 fL (80.0-100.0); Platelet Count 303 K/uL (130-400); RDW Standard Deviation 49.3 fL (36.4-46.3); Red Blood Count 3.50 M/uL (4.70-6.10); White Blood Count 22.51 K/ul (4.8-10.8)
[2025-01-30 08:20] LABS: Alanine Aminotransferase 33.0 U/L (7-52); Albumin Globulin Ratio 0.6 (0.9-2); Alkaline Phosphatase 318.0 U/L (34-104); Anion Gap 7.0 (3-11); Bilirubin,Total 0.9 mg/dl (0.2-1.0); Blood Urea Nitrogen 12.0 mg/dl (6-23); Calcium 7.0 mg/dl (8.6-10.3); Carbon Dioxide 19.0 mmol/L (21-32); Chloride 102.0 mmol/L (98-107); Creatinine Clr Calc Pharmacy 124.1 ml/min; Globulin 3.4 gm/dl (2.5-4.0); Glucose 118.0 mg/dl (70-99(Fasting)); Magnesium 2.2 mg/dl (1.7-2.4); Potassium 3.3 mmol/L (3.5-5.1); Sodium 128.0 mmol/L (136-145); Total Protein 5.4 gm/dl (6.0-8.3)
--- NOTE | 2025-01-30 08:25 | Billing Data ---
Date of Service January 27, 2025 Coding Level of Care Code 06191 INT INP/OBS CARE
--- NOTE | 2025-01-30 08:27 | Billing Data ---
Date of Service January 28, 2025 Coding Level of Care Code 02362 INT INP/OBS CARE
--- NOTE | 2025-01-30 08:31 | Billing Data ---
Date of Service January 29, 2025 Coding Level of Care Code 68708 INT INP/OBS CARE
--- NOTE | 2025-01-30 11:12 | Palliative Care Progress Note ---
Date of Service January 30, 2025 Assessment & Plan (1) Palliative care by specialist: Plan: Palliative care will continue to follow for ongoing ACP discussions and pt/ family support. (2) Counseling regarding goals of care: Plan: TODAY: Met with pt at bedside, he remains alert and oriented x3, but again when asked about his medical situation and plan of care, he answered "I don't know ask my sister Jeannie". Patient continues to exhibits lack of decisional capacity. I spoke with pt's sister Jeannie via phone. For 35 minutes we reviewed previous ACP discussions, questions encouraged and answered. Discussed pt's current health and need for complete assist with ADLs. Jeannie shared that the family had been torn but they are all in agreement that if the pt has a limited prognosis, he would like to be home. She shared that the family all feels that it is early for hospice and that if he develops intractable pain or poor quality of life they would transition to comfort directed care. At this time they are requesting discharge to home with [facility] HHC and PT and hope for improvement in strength and mobility. 01/27: per meeting with Palliative care Dr Richardson: "discussed why infection would return/Abtx would not be effective as cancer progresses. She asked if he could come here for EOL care and I reviewed the need to be in a chronic care facility when chronic care is needed and the hospital is for high level acute/emergent care. She told me the mother took care of another family member at home on hospice and has signif PTSD and "My Mom won't survive caring for my brother at home with hospice, she is a nervous wreck and it will destroy her. She has been the calmest and happiest I have seen her visiting him here" Jeannie also said they don't have a lot of other support but the sister who "lives 4 miles away is a nurse but lost her car so does not have a way to get to the house but if she could then she'd be able to help care for him and it would be easy for her as a nurse to do it." I am going to see pt later today and will update the group and Jeannie after speaking with him. I then had a 60 min face to face ACP 11a-12pm with Mr Denney and updated his sister Jeannie again. He is in agreement for completing Abtx here then SNF trial of rehab. If he acutely worsens at SNF then pivot to ASSISTANT PROFESSOR OF ECONOMICS +/- hospice at SNF. If he gets through rehab at SNF then plan for dc home with hospice from SNF. In the meantime, family will work on logistics of caregiver support - the RN sister is 4 miles away but lost her car so they need to figure out a plan for getting her to and from the home (he and parents share a home) and if they can figure that out then he will have a caregiver in addition to his mom. I did share with pt the emotional intensity and burden on Mom with caring for him and his ailing parkinson's father fabi knowing his mom already care for another family member at home with hospice - it would be a second family member dying in her house with hospice who is her son. He admitted it is a lot, but he still wants to get home after SNF if he can IF family can work out the caregiver situation. he recognized things may acutely worsen even while at SNF and in that case, would pivot to ASSISTANT PROFESSOR OF ECONOMICS at SNF. Family will be in this evening. " 01/25: Spoke with pt's sister Jeannie by phone for 30minutes. We discussed pt's medical history and current admission course. Jeannie shared that the pt had initially expressed desire to go home and not pursue any further life prolonging treatments, but as he improved from IV antibiotics he has changed his mind. We discussed that the pt appears to be confused and not possess decisional capacity, Jeannie agreed. She shared that the family is planning on meeting today or tomorrow to discuss how to proceed before coming in to the hospital to discuss with the patient. She shared that she and the patient's parents have discussed that the pt "does not have pain and aside from sepsis he does not have alot of symptoms" she referred to pt's age and shared that they want to give him a chance to recover from sepsis if he is saying that he wants to live. She shared that the patient does have a good quality of life between his frequent admissions and most values being at home. We discussed the patient's underlying aggressive colorectal cancer with progression of disease through treatment and recurrent polymicrobial septicemia without source control. We discussed that although the patient does seem to be responding to aggressive triple antibiotic therapy, without source control the infection will eventually return after IV antibiotic course is completed and continuing course of IV antibiotics may delay discharge. Discussed that even with clearance of sepsis, the underlying aggressive rectal cancer continues to advance unchecked. We discussed that given all of these things the patient has a very poor prognosis even with aggressive treatment. Shared concern that if patient return to hospital in septic shock, without aggressive interventions he may end up dying in the hospital. Jeannie stated that she knows the patient does not want any further cancer directed treatment, but they are hopeful that ongoing antibiotics may allow some quality of life. Jeannie shared appreciation for the information and shared that she will be discussing this with the family and would like to plan for a C discussion with palliative care team later in week. (3) Encounter for assessment of decision-making capacity: Plan: Patient continues to exhibits lack of decisional capacity based on the inability to convey understanding of personal PMHx, current medical condition, treatment options nor the risks / benefits/ potential outcomes of accepting/declining those options, and inability to make decisions based on such knowledge. Hospital does not have written documentation of patient wishes concerning his chosen proxy for medical decisions. Per PA [id number], in absence of written documentation of patient wishes, pt's proxy for medical decisions would be his parents. Pt has consistently verbalized that he trusts his sister Jeannie to serve as as primary proxy for medical decisions in the event he lacks decisional capacity. Pt does currently require a proxy for medical decisions. Plan Family requests discharge to home with HHC and PT when medically cleared. Admission and Anticipated Discharge Date Admission Date: January 19, 2025 Subjective Assessed pt at bedside, no visitors present. Pt awake an alert but oriented x3. VSS, voiced no complaints. RN reports pt had nausea and emesis refractory to zofran and compazine overnight. Pt denies any nausea this morning. Review of Systems Review of Systems: All systems reviewed & are unremarkable except as noted in Subjective Physical Exam Constitutional: + ill appearing, + thin, + frail appeari ng and comfortable Eyes: PERRL, conjunctivae normal, anicteric sclerae Neck: trachea midline, no thyromegaly Respiratory: normal respiratory effort, lungs clear to auscultation Cardiovascular: RRR, no murmur, no edema Gastrointestinal (Abdomen): normal bowel sounds, soft, nontender, no hepatosplenomegaly ostomy appliance intact, draining liquid stool. Skin: no rashes, warm and dry Psychiatric: A+Ox3, euthymic affect Results & Data Vital Signs (Past 12 Hours) Vital Signs Temp Pulse Pulse Resp BP Pulse Ox O2 Del Method 01/30/25 08:14 36.2 C L 113 H 18 112/74 99 Room Air 01/30/25 07:36 Room Air 01/30/25 07:27 117 H 01/30/25 02:36 36.6 C 135 H 18 103/73 98 Room Air Laboratory Results Abnormal lab results 01/29/25 01/30/25 Range/Units 22:51 07:28 WBC 22.51 H (4.8-10.8) K/ul RBC 3.50 L (4.70-6.10) M/uL Hgb 9.2 L (14.0-18.0) g/dl Hct 28.5 L (42.0-52.0) % RDW Std Deviation 49.3 H (36.4-46.3) fL RDW Coeff of Dru 16.8 H (11.5-14.5) % Neut # (Auto) 19.95 H (1.40-6.50) K/uL Lymph # (Auto) 0.75 L (1.20-3.40) K/uL [place] # (Auto) 1.32 H (0.11-0.59) K/uL Immature Gran # (Auto) 0.27 H (0.01-0.20) K/uL Sodium 130 L 128 L (136-145) mmol/L Potassium 3.2 L 3.3 L (3.5-5.1) mmol/L Carbon Dioxide 19 L 19 L (21-32) mmol/L Glucose 198 H 118 H (70-99(Fasting)) mg/dl Calcium 7.0 L 7.0 L (8.6-10.3) mg/dl AST 42 H (13-39) U/L Alkaline Phosphatase 318 H (34-104) U/L C-Reactive Protein 14.79 H (0-0.5) mg/dl Total Protein 5.4 L (6.0-8.3) gm/dl Albumin 2.0 L (3.4-5.0) gm/dl Albumin/Globulin Ratio 0.6 L (0.9-2) Procalcitonin 4.36 H (0-0.5) ng/ml Diagnostic Findings Chest X-Ray 01/19/25 17:38 Clinical History: Sepsis Technique: A frontal view of the chest was obtained Comparison is made to the prior examination today 03/09/2024 Findings: There is mild left lung base atelectasis. The heart size is within normal limits. No pleural effusion or pneumothorax is seen. There is suspected mild pulmonary edema No fracture is noted. No foreign body is seen Impression: Suspected mild pulmonary edema Electronically signed by Salvador Braun 01-19-2025 6:29 PM Abdomen/Pelvis CTA 01/19/25 20:30 Exam(s): CTA ABDOMEN + PELVIS With Contrast IV Amt: 118 cc opt i320 EXAM: CT Abdomen and Pelvis With Intravenous Contrast CLINICAL HISTORY: hypotension, hb 5.8, rectal mass. TECHNIQUE: Axial computed tomographic images of the abdomen and pelvis with intravenous contrast. CTDI is 17.1 mGy and DLP is 1048.04 mGy-cm. Automated exposure control was utilized for the study. A dose lowering technique was utilized adhering to the principles of ALARA. CONTRAST: Patient received 118 cc opt i320 of IV contrast COMPARISON: CTA abdomen and pelvis without contrast 03/07/2024 FINDINGS: VASCULATURE: Aorta: No acute findings. No abdominal aortic aneurysm. No dissection. Celiac trunk and mesenteric arteries: No acute findings. No occlusion or significant stenosis. Renal arteries: No acute findings. No occlusion or significant stenosis. Iliac arteries: No acute findings. No occlusion or significant stenosis. Lung bases: Minimal dependent subsegmental changes in the posterior lower lobes. No consolidation. ABDOMEN: Liver: Unremarkable. No mass. Gallbladder and bile ducts: Solitary subcentimeter gallstone. No gallbladder wall thickening. No ductal dilation. Pancreas: Similar calcifications involving the tail of the pancreas and at the pancreatic head consistent with chronic pancreatitis. However, there is new peripancreatic fat stranding and edema surrounding the pancreas. No ductal dilation. Spleen: Unremarkable. No splenomegaly. Adrenals: Unremarkable. No mass. Kidneys and ureters: Moderate bilateral hydroureteronephrosis with distention of the ureters extending to the pelvic mass. Stomach and bowel: The previously noted soft tissue rectal mass previously filling the pelvic outlet and extending below the pelvic floor has expanded with invasion of the obturator muscles, [id number]-[id number]- left. There is also further extension inferiorly below the pelvic floor with involvement of the medial aspect of the gluteal muscles bilaterally. There is also extension to the skin surface with a pedunculated masslike component on the left now identified measuring 5.5 x 3.3 x 3.4 cm. There is heterogeneous enhancement of the mass but no obvious active arterial extravasation internally. No evidence for high-grade bowel obstruction. No evidence for intraluminal contrast extravasation within the stomach, small bowel or proximal colonic segments extending to the left lower quadrant colostomy, accounting for limitations with respiratory artifact. PELVIS: Appendix: No findings to suggest acute appendicitis. Bladder: The bladder is prominently displaced anteriorly with a Fox catheter in position. There is obliteration of the fat plane between the mass in the posterior aspect of the bladder with diffuse bladder wall prominence. Reproductive: Unremarkable as visualized. ABDOMEN and PELVIS: Intraperitoneal space: Unremarkable. No significant fluid collection. No free air. Bones/joints: No acute fracture. No dislocation. Soft tissues: Unremarkable. Lymph nodes: Unremarkable. No enlarged lymph nodes. IMPRESSION: 1. The previously noted soft tissue rectal mass previously filling the pelvic outlet and extending below the pelvic floor has expanded with invasion of the obturator muscles, azqns-[id number]-pwlm-left. There is also further extension inferiorly below the pelvic floor with involvement of the medial aspect of the gluteal muscles bilaterally. There is also extension to the skin surface with a pedunculated masslike component on the left now identified measuring 5.5 x 3.3 x 3.4 cm. There is heterogeneous enhancement of the mass but no obvious active arterial extravasation internally. 2. No evidence for high-grade bowel obstruction. No evidence for intraluminal contrast extravasation within the stomach, small bowel or proximal colonic segments extending to the left lower quadrant colostomy, accounting for limitations with respiratory artifact. 3. Similar calcifications involving the tail of the pancreas and at the pancreatic head consistent with chronic pancreatitis. However, there is new peripancreatic fat stranding and edema surrounding the pancreas. The appearance is consistent with acute pancreatitis. 4. Moderate bilateral hydroureteronephrosis with distention of the ureters extending to the pelvic mass. A component of urinary retention is suspected from extrinsic compression by the mass. Electronically signed by: Tyree Hill MD 01/19/25 22:18 PM Retrograde Pyelogram 01/20/25 12:00 FL retrograde includes kub CLINICAL HISTORY: STENT COMPARISON STUDY: None FLUOROSCOPY TIME: FLUOROSCOPY IMAGES: 5 EXPOSURE DOSE: 18 mGy FINDINGS: Fluoroscopy was provided for urologic procedure. IMPRESSION: Intraoperative fluoroscopy. ACT 112: Negative or not required by law. Electronically signed by: Kehinde Thorpe M.D. 01/20/2025 3:39 PM KUB X-Ray 01/28/25 09:13 KUB HISTORY: worsening labs. constipation/ stercoral colitis? COMPARISON STUDY: 01/19/2025 CT FINDINGS: There are interval well positioned appearing bilateral ureteral stents. Urinary bladder catheter is stable. Left lower quadrant ostomy is better seen on the prior CT. There is mild retained stool. No bowel obstruction seen. No gross free air. IMPRESSION: Mild retained stool with no specific evidence of bowel obstruction seen. ACT 112: Negative or not required by law. The above report was generated using voice recognition software. It may contain grammatical, syntax or spelling errors. Electronically signed by: Kehinde Thorpe M.D. 01/28/2025 9:47 AM Medications Administered Current Inpatient Medications Daptomycin 800 mg/ Syringe 16 mls @ 8 mls/min IV Q24H [facility]; Protocol Stop: 02/02/25 23:59 Last Admin: 01/29/25 10:22 Dose: 8 mls/min Tigecycline 100 mg/ Dextrose 110 mls @ 200 mls/hr IV Q12H [facility] Stop: 02/02/25 23:59 Last Infusion: 01/29/25 23:01 Dose: Infused Ampicillin Sodium/Sulbactam Sodium 9,000 mg/ Sodium Chloride 274 mls @ 68.5 mls/hr IV Q8H [facility] Stop: 02/02/25 23:59 Last Admin: 01/30/25 07:43 Dose: 68.5 mls/hr Midodrine (Midodrine Hcl 10 Mg Tab) 10 mg PO TIDM [facility] Stop: 02/19/25 07:59 Last Admin: 01/30/25 07:43 Dose: 10 mg Potassium Chloride (Potassium Chloride Crtab 20 Meq Tabcr) 20 meq PO TID [facility] Stop: 01/31/25 09:01 PG Care Time/CCT Total # of Minutes Spent Total Time Spent with Patient: Total time spent is greater than 50% in coordination of care (as documented) at patient's floor/unit and/or counseling patient: Advanced Care Planning 38482 Advanced Care Planning 30 Min [place] [address] SUB INP/OBS CARE 2/35MIN Patient Type Established Medical Decision Making Moderate Complexity Diagnoses Palliative care by specialist Z51.5 Counseling regarding goals of care Z71.89 Encounter for assessment of decision-making capacity Z00.8 Additional Codes Advanced Care Planning - 34070 Advanced Care Planning 30 Min: 87255 Advanced Care Planning 30 Min ([id number])
[2025-01-30] MEDS: POTASSIUM CHLORIDE CRTAB 20 MEQ TABCR PO SCH (14:32)
--- NOTE | 2025-01-30 15:44 | Hospitalist Progress Note ---
Date of Service January 30, 2025 Assessment & Plan (1) Carbapenem-resistant Acinetobacter baumannii infection: (2) Bacteremia due to Enterococcus: (3) Bacteremia due to Klebsiella pneumoniae: (4) Complicated UTI (urinary tract infection): (5) Rectal mass: (6) Electrolyte depletion: (7) Transaminitis: Plan 54 yo M with rectal cancer with colostomy s/p radiation and completed 8 cycles of FOLFOX (09/20/24) with disease progression despite treatment, schizophrenia, HTN, DM2 who presented on 01/19 with worsening confusion, hypotension, found to have polymicrobial bacteremia (XDR Acinetobacter baumannii, E faecium, Kleb pneumo) likely 2/2 bilateral hydroureteronephrosis from obstructing pelvic mass, s/p bilateral ureteral stents (01/20/25). Initially in the ICU briefly on 01/20 but was downgraded when code status from full code to DNR/DNI by patient sister who is POA. Etiology of severe septic shock with end-organ failure (e.g., acute kidney injury) was due to catheter-associated UTI with hematogenous dissemination. Severe septic shock has RESOLVED, and so too has end-organ failure (e.g., acute kidney injury) RESOLVED, as shown above by the progressive decline in creatinine levels. In addition to empiric antibiotics patient has received IV fluid rehydration therapy Severe sepsis with septic shock/UTI - Septic shock has resolved with MAP > 65, and evidence of end organ damage has resolved Cr improvements - Ucx positive for 2 strains A. baumannii, E. Faecium and E. Facaelis - Bcx positive for A. baumannii/nosoco - Lactic acid, procalcitonin, and WBC counts downtrending and vitals h emodynamically stable - Patient has been on several abx therapy including ceftriaxone and Zosyn; This was switched to Unasyn, meropenem and vancomycin with the rationale supporting coverage for Enterococcus with vancomycin and A. Baumannii with Unasyn and meropenem - Due to positive Bcx with complex organism, ID consulted appreciate recs stated below: - For carbapenem-resistant Acinetobacter baumannii: - Changed amp-sulbactam to 9 g q8h extended infusion over 4 hours - Started tigecycline 200 mg x 1, followed by 100 mg q12h -Ordered a 1 time dose of amikacin 15 mg/kg -Changed vanc to daptomycin 12 mg/kg IV q24h -Abx course recommended until 02/02 for a total 10 day course since abx change for gram negative bacteremia/sepsis - Increased WBCs to 18.93, lactate: 2.7, Pro-calcitonin: 4.04 and CRP: 22 trending up since Abx change 01/24, will order new blood cultures with increase in inflammatory response; Inflammatory markers have begun to trend down today 01/28 WBC: 17.81, lactate reflux: 1.8, Procal: 3.94, CRP: 19.57. WBCs/inflammatory markers increased again this AM 01/29, CRP downtrended. Will re-visit abx recommendations and evaluate if course should be modified with ID tomorrow - Monitor Bcx, appreciate continued ID recs - Stool studies for C.diff toxin ordered - Continue to monitor with CBC, procalcitonin, CRP, CMP QAM Colorectal carcinoma CT angiography abdomen pelvis showing significant increase in size compared to previous with extension of rectal mass to skin and invasion of obturator and gluteal muscles Was told up at [facility] that he was not currently a surgical candidate Patient with previous chemoradiation treatments and after recent DNR/DNI transition will call POA and attempt goals of care discussion for probably hospice/palliative intervention Palliative care consult placed, appreciate recommendations: Family have discussed that they are not ready to care for patient at home due to significant stressors and burden on mother who would be primary sanitary engineer. Patient will complete Abx therapy at [facility] through 02/02 and then transfer to SNF for further rehab. 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 after more aggressive fluid resuscitation Electrolyte disturbances/hyperkalemia/hypomagnesemia- No signs of ectopy on monitor in the ED Potassium 5.8 on admission, likely secondary to acute kidney injury Repeat in a.m. after having received 2 L normal saline and PRBCs Continue Mg/K+ replenishment as needed - evaluate with AM CMP and Mg studies Diabetes mellitus- Hold metformin ICU protocol-resistant E faecalis bacteremia in November 2024). Baseline CK 17 on 01/24/25 -Continue monitoring Bcxs Admission and Anticipated Discharge Date Admission Date: January 19, 2025 Supervising Physician Co-Signing Physician Notes I personally examined the patient and verified all cornelius points of history and exam, discussed case, and agree with decision making with Dr Hayes Feeling okay. No complaints. Would like to go home. Vitals noted, in general he is awake and alert pleasant no distress. Fatigued. Appears somewhat emaciated. Breathing unlabored no accessory muscle use good effort. Skin without rashes pallor or icterus. Neuro without focal deficits. acintenobacter bacteremiacontinue current antibiotics. Discussed with infectious disease, anticipate this will continue to improve. Follow-up cultures are no growth to date inflammatory markers are trending down and he appears to be asymptomatic. Anticipated end of treatment is 02/02. Rectal cancerunfortunately beyond any meaningful treatment. He would like to go home. Family working on a way to make this viable. SCDs for DVT proph Subjective Assessed pt at bedside, no visitors present. Pt awake an alert but oriented x3. VSS, voiced no complaints. RN reports pt had nausea and emesis refractory to zofran and compazine overnight. Pt denies any nausea this morning. Physical Exam Physical Exam: General: patient resting comfortably, NAD, non-toxic in appearance, answers questions appropriately. Skin: warm, dry, intact HEENT: NC/AT, anicteric sclera, conjunctiva without injection, moist mucus membranes. Heart: +S1/S2, regular, no m/r/g Lungs: equal air entry bilaterally, no rales/rhonchi/wheezes Abd: +BS, soft, NT/ND Ext: warm, no clubbing/cyanosis or edema Neuro: nonfocal, speech intact, no facial droop, moving all extremities. Results & Data Results & Data Vital Signs (Past 12 Hours) Vital Signs Temp Pulse Pulse Resp BP Pulse Ox O2 Del Method 01/30/25 14:37 68 01/30/25 11:30 36.3 C L 105 H 18 118/76 97 Room Air 01/30/25 08:14 36.2 C L 113 H 18 112/74 99 Room Air 01/30/25 07:36 Room Air 01/30/25 07:27 117 H Resident Activity Tracking Resident Involvement: Resident Care Provided Care Provided: Adult [facility] Medicine
--- NOTE | 2025-01-30 16:45 | Billing Data ---
Date of Service January 30, 2025 Coding Level of Care Code 61415 SUB INP/OBS CARE MIN
--- NOTE | 2025-01-30 22:31 | Electrocardiogram Report ---
Test Reason : Blood Pressure : */* mmHG Vent. Rate : 132 BPM Atrial Rate : 132 BPM P-R Int : 130 ms QRS Dur : 80 ms QT Int : 396 ms P-R-T Axes : 50 38 58 degrees QTcB Int : 586 ms Sinus tachycardia Nonspecific ST and T wave abnormality Prolonged QT Abnormal ECG When compared with ECG of 19-Jan-2025 17:32, Premature atrial complexes are no longer Present ST now depressed in Anterior leads Nonspecific T wave abnormality now evident in Lateral leads Confirmed by Eleno Benz ([id number]) on 01/30/2025 10:31:30 PM Referred By: REFERRED SELF Confirmed By: Eleno Benz
--- NOTE | 2025-01-30 22:32 | Electrocardiogram Report ---
Test Reason : Blood Pressure : */* mmHG Vent. Rate : 118 BPM Atrial Rate : 118 BPM P-R Int : 124 ms QRS Dur : 78 ms QT Int : 344 ms P-R-T Axes : 57 32 83 degrees QTcB Int : 482 ms Sinus tachycardia Nonspecific ST and T wave abnormality Prolonged QT Abnormal ECG When compared with ECG of 29-Jan-2025 21:50, No significant change Confirmed by Eleno Benz ([id number]) on 01/30/2025 10:32:22 PM Referred By: REFERRED SELF Confirmed By: Eleno Benz
[2025-01-31 07:27] LABS: Hematocrit (blood only) 31.9 % (42.0-52.0); Hemoglobin 10.3 g/dl (14.0-18.0); Immature Granulocytes # (auto) 0.26 K/uL (0.01-0.20); Immature Granulocytes % (auto) 1.3 %; Mean Corpuscular Hemoglobin 26.3 pg (25.0-34.0); Mean Corpuscular Volume 81.6 fL (80.0-100.0); Platelet Count 341 K/uL (130-400); RDW Standard Deviation 49.5 fL (36.4-46.3); Red Blood Count 3.91 M/uL (4.70-6.10); White Blood Count 19.93 K/ul (4.8-10.8)
[2025-01-31] MEDS: SODIUM CHLORIDE 0.9% 1,000 ML IV SCH (08:40)
[2025-01-31 08:51] LABS: Alanine Aminotransferase 36.0 U/L (7-52); Albumin Globulin Ratio 0.6 (0.9-2); Alkaline Phosphatase 513.0 U/L (34-104); Anion Gap 9.0 (3-11); Bilirubin,Total 1.5 mg/dl (0.2-1.0); Blood Urea Nitrogen 10.0 mg/dl (6-23); Calcium 7.0 mg/dl (8.6-10.3); Carbon Dioxide 20.0 mmol/L (21-32); Chloride 100.0 mmol/L (98-107); Creatine Kinase 27.0 U/L (30-223); Creatinine Clr Calc Pharmacy 114.3 ml/min; Globulin 3.6 gm/dl (2.5-4.0); Glucose 118.0 mg/dl (70-99(Fasting)); Magnesium 1.6 mg/dl (1.7-2.4); Potassium 3.1 mmol/L (3.5-5.1); Sodium 129.0 mmol/L (136-145); Total Protein 5.7 gm/dl (6.0-8.3)
--- NOTE | 2025-01-31 09:03 | Hospitalist Progress Note ---
Date of Service January 31, 2025 Assessment & Plan (1) Carbapenem-resistant Acinetobacter baumannii infection: (2) Bacteremia due to Enterococcus: (3) Bacteremia due to Klebsiella pneumoniae: (4) Complicated UTI (urinary tract infection): (5) Rectal mass: (6) Electrolyte depletion: (7) Transaminitis: Plan 54 yo M with rectal cancer with colostomy s/p radiation and completed 8 cycles of FOLFOX (09/20/24) with disease progression despite treatment, schizophrenia, HTN, DM2 who presented on 01/19 with worsening confusion, hypotension, found to have polymicrobial bacteremia (XDR Acinetobacter baumannii, E faecium, Kleb pneumo) likely 2/2 bilateral hydroureteronephrosis from obstructing pelvic mass, s/p bilateral ureteral stents (01/20/25). Initially in the ICU briefly on 01/20 but was downgraded when code status from full code to DNR/DNI by patient sister who is POA. Etiology of severe septic shock with end-organ failure (e.g., acute kidney injury) was due to catheter-associated UTI with hematogenous dissemination. Severe septic shock has RESOLVED, and so too has end-organ failure (e.g., acute kidney injury) RESOLVED, as shown above by the progressive decline in creatinine levels. In addition to empiric antibiotics patient has received IV fluid rehydration therapy Severe sepsis with septic shock/UTI - Septic shock has resolved with MAP > 65, and evidence of end organ damage has resolved Cr improvements - Ucx positive for 2 strains A. baumannii, E. Faecium and E. Facaelis - Bcx positive for A. baumannii/nosoco - Lactic acid, procalcitonin, and WBC counts downtrending and vitals h emodynamically stable - Patient has been on several abx therapy including ceftriaxone and Zosyn; This was switched to Unasyn, meropenem and vancomycin with the rationale supporting coverage for Enterococcus with vancomycin and A. Baumannii with Unasyn and meropenem - Due to positive Bcx with complex organism, ID consulted appreciate recs stated below: - For carbapenem-resistant Acinetobacter baumannii: - Changed amp-sulbactam to 9 g q8h extended infusion over 4 hours - Started tigecycline 200 mg x 1, followed by 100 mg q12h -Ordered a 1 time dose of amikacin 15 mg/kg -Changed vanc to daptomycin 12 mg/kg IV q24h -Abx course recommended until 02/02 for a total 10 day course since abx change for gram negative bacteremia/sepsis - Increased WBCs to 18.93, lactate: 2.7, Pro-calcitonin: 4.04 and CRP: 22 trending up since Abx change 01/24, will order new blood cultures with increase in inflammatory response; Inflammatory markers have begun to trend down today 01/28 WBC: 17.81, lactate reflux: 1.8, Procal: 3.94, CRP: 19.57. WBCs/inflammatory markers increased again this AM 01/29, CRP downtrended. Fluctuating WBC/Procal/CRP, reductions to these markers 01/31 - Monitor Bcx, appreciate continued ID recs - Stool studies for C.diff toxin ordered - Continue to monitor with CBC, procalcitonin, CRP, CMP QAM Colorectal carcinoma CT angiography abdomen pelvis showing significant increase in size compared to previous with extension of rectal mass to skin and invasion of obturator and gluteal muscles Was told up at [facility] that he was not currently a surgical candidate Patient with previous chemoradiation treatments and after recent DNR/DNI transition will call POA and attempt goals of care discussion for probably hospice/palliative intervention Palliative care consult placed, appreciate recommendations: Family have discussed that they are not ready to care for patient at home due to significant stressors and burden on mother who would be primary recreational sports director. Patient will complete Abx therapy at [facility] through 02/02 and then transfer to SNF for further rehab. If rehab is successful in SNF and condition remains stable then home with hospice care vs if unsuccessful [facility] +/- hospice at SNF Transaminitis - Acutely worsened 01/25, AST: 164, ALT: 129, Alk Phos: 217 - 01/26 LFTs improving, AST: 29, ALT: 61, and Alk Phos: 157 - Continue to monitor, CMP QAM BUDDY Resolved Secondary to hypovolemia associated with anemia and dehydration Repeat laboratories in a.m. after more aggressive fluid resuscitation Electrolyte disturbances/hyperkalemia/hypomagnesemia- No signs of ectopy on monitor in the ED Potassium 5.8 on admission, likely secondary to acute kidney injury Repeat in a.m. after having received 2 L normal saline and PRBCs Continue Mg/K+ replenishment as needed - evaluate with AM CMP and Mg studies Diabetes mellitus- Hold metformin ICU protocol-resistant E faecalis bacteremia in November 2024). Baseline CK 17 on 01/24/25 -Continue monitoring Bcxs Admission and Anticipated Discharge Date Admission Date: January 19, 2025 Supervising Physician Co-Signing Physician Notes I personally examined the patient and verified all cornelius points of history and exam, discussed case, and agree with decision making with Dr Hayes resting comfortably no new issues noted. Vitals noted, in general he is awake and alert pleasant no distress. sleeping comfortably. Appears somewhat emaciated. Breathing unlabored no accessory muscle use good effort. Skin without rashes pallor or icterus. Neuro without focal deficits. acintenobacter bacteremiacontinue current antibiotics. on 01/30, discussed with infectious disease, anticipate this will continue to improve. Follow-up cultures are no growth to date inflammatory markers are trending down and he appears to be asymptomatic. Anticipated end of treatment is 02/02. Rectal cancerunfortunately beyond any meaningful treatment. He would like to go home. Family working on a way to make this viable. currently plan is home health/home PT SCDs for DVT proph anticipate dc either afternoon of 02/02 or AM of 02/03 depending on planning with patient/family/case management Subjective Assessed pt at bedside, no visitors present. Pt awake an alert but oriented x3. VSS, voiced no complaints. Patient denies chest pain, palpitations, SOB, wheeze, abdominal pain, nausea, fevers and chills. Patient reports that his nausea/vomiting has not recurred since yesterday night, no acute complaints overnight. Patient remains afebrile and hemodynamically stable. Physical Exam Physical Exam: General: patient resting comfortably, NAD, non-toxic in appearance, answers questions appropriately. Skin: warm, dry, intact HEENT: NC/AT, anicteric sclera, conjunctiva without injection, moist mucus membranes. Heart: +S1/S2, regular, no m/r/g Lungs: equal air entry bilaterally, no rales/rhonchi/wheezes Abd: +BS, soft, NT/ND Ext: warm, no clubbing/cyanosis or edema Neuro: nonfocal, speech intact, no facial droop, moving all extremities. Results & Data Results & Data Vital Signs (Past 12 Hours) Vital Signs Temp Pulse Pulse Resp BP Pulse Ox O2 Del Method 01/31/25 08:12 36.5 C 121 H 20 114/79 96 Room Air 01/31/25 07:27 120 H 01/31/25 02:43 37 C 125 H 16 110/71 95 Room Air 01/30/25 22:53 110 H 01/30/25 21:54 36.5 C 114 H 18 121/79 98 Room Air Resident Activity Tracking Resident Involvement: Resident Care Provided Care Provided: Adult Hospital Medicine
[2025-01-31] MEDS ORDERED: MAGNESIUM SULFATE / D5W 1 GM/100 ML BAG IV SCH (09:15)
[2025-01-31] MEDS: MAGNESIUM SULFATE / D5W 1 GM/100 ML BAG IV SCH (09:28)
--- NOTE | 2025-01-31 13:09 | Billing Data ---
Date of Service January 31, 2025 Coding Level of Care Code 67597 SUB INP/OBS CARE
[2025-01-31] MEDS: POTASSIUM CHLORIDE CRTAB 20 MEQ TABCR PO SCH (14:25)
--- NOTE | 2025-01-31 14:57 | Palliative Care Progress Note ---
Date of Service January 31, 2025 Assessment & Plan (1) Cancer related pain: Plan: No acute /new complaints today. (2) Weakness generalized: Plan: progressive decline from met rectal cancer (3) Palliative care by specialist: Plan: He is terminally ill - palliative prognostics as follow: Patient's Palliative Prognostic Score (PaP) Score = 17.5 points/Interpretation: 30-day survival probability <30% Patient's Palliative Prognostic Index (PPI) Score = 8.5 points/If the PPI is greater than 6.0, survival is less than three weeks (Sensitivity - 80%; Specificity - 85%). Overall, mortality is likely weeks. Plan No changes to regimen at this time. prognosis is poor, anticipated survival of weeks. Current plan is for patient to complete his antibiotic during this admission and then discharge home with the addition of visiting nurse services. Per chart review, family has declined hospice, feeling that "it is not time for that yet." Patient continues to deny any acute cancer related pain. He remains with some generalized weakness, debility, declining performance status and overall frailty. He has a progressive rectal cancer and he is not a candidate for continued cancer directed therapy including surgical interventions. Dispo planning per care mgt. For now, we will sign off given no acute symptom mgt needs and a clear dispo plan agreed upon by pt and family. His SDM is his sister, Jeannie. Please see prior [facility] notes for ACP/family meeting discussions. Thank you for allowing us to participate in the ongoing care of this patient. Please page with any additional concerns. Tatyana Richardson DNP Director, Palliative Medicine Admission and Anticipated Discharge Date Admission Date: January 19, 2025 Subjective resting in bed gen weakness not engaging with PT/OT no family present does not interact much today tolerating Abtx, denies b/v no acute pain no resp distress at rest Review of Systems Review of Systems: All systems reviewed & are unremarkable except as noted in Subjective Physical Exam Constitutional: + ill appearing, + thin, + frail appeari ng and comfortable Eyes: PERRL, conjunctivae normal, anicteric sclerae ENMT: poor dentition, MM dry Neck: trachea midline, no thyromegaly Respiratory: able to speak in complete sentences and symmetric chest movement Auscultation: + diminished lung sounds Cardiovascular: Rate/Rhythm: regular rate and regular rhythm Gastrointestinal (Abdomen): normal bowel sounds, soft, nontender, no hepatosplenomegaly ostomy appliance intact, draining liquid stool. Skin: no rashes, warm and dry Psychiatric: Orientation: alert and oriented x 3 Apperance: + disheveled Eye Contact: + fair eye contact Affect: + depressed affect, + anxious affect and + blunted affect Results & Data Vital Signs (Past 12 Hours) Vital Signs Temp Pulse Pulse Resp BP Pulse Ox O2 Del Method 01/31/25 13:00 114 H 01/31/25 11:23 36.5 C 109 H 20 112/76 97 Room Air 01/31/25 08:12 36.5 C 121 H 20 114/79 96 Room Air 01/31/25 07:27 120 H Laboratory Results 01/31/25 01/30/25 01/29/25 Range/Units 06:55 07:28 22:51 WBC 19.93 H 22.51 H (4.8-10.8) K/ul RBC 3.91 L 3.50 L (4.70-6.10) M/uL Hgb 10.3 L 9.2 L (14.0-18.0) g/dl Hct 31.9 L 28.5 L (42.0-52.0) % MCV 81.6 81.4 (80.0-100.0) fL MCH 26.3 26.3 (25.0-34.0) pg MCHC 32.3 32.3 (32.0-36.0) g/dL RDW Std Deviation 49.5 H 49.3 H (36.4-46.3) fL RDW Coeff of Dru 17.0 H 16.8 H (11.5-14.5) % Plt Count 341 303 (130-400) K/uL MPV 10.0 10.0 (9.4-12.4) fL Immature Gran % (Auto) 1.3 1.2 % Neut % (Auto) 88.1 88.6 % Lymph % (Auto) 3.4 3.3 % Divide % (Auto) 6.0 5.9 % Eos % (Auto) 0.8 0.7 % Baso % (Auto) 0.4 0.3 % Neut # (Auto) 17.58 H 19.95 H (1.40-6.50) K/uL Lymph # (Auto) 0.67 L 0.75 L (1.20-3.40) K/uL Divide # (Auto) 1.19 H 1.32 H (0.11-0.59) K/uL Eos # (Auto) 0.15 0.15 (0.00-0.50) K/uL Baso # (Auto) 0.08 0.07 (0.00-0.20) K/uL Immature Gran # (Auto) 0.26 H 0.27 H (0.01-0.20) K/uL Sodium 129 L 128 L 130 L (136-145) mmol/L Potassium 3.1 L 3.3 L 3.2 L (3.5-5.1) mmol/L Chloride 100 102 101 (98-107) mmol/L Carbon Dioxide 20 L 19 L 19 L (21-32) mmol/L Anion Gap 9 7 10 (3-11) BUN 10 12 14 (6-23) mg/dl Creatinine 0.65 0.61 0.74 (0.6-1.4) mg/dl Est Cr Clr Drug Dosing 114.3 124.1 99.6 ml/min eGFR 111.97 114.14 107.67 BUN/Creatinine Ratio 15.4 19.7 18.9 (10-20) Glucose 118 H 118 H 198 H (70-99(Fasting)) mg/dl POC Glucose (70-99) mg/dl Lactate (0.4-2.0) mmol/L Calcium 7.0 L 7.0 L 7.0 L (8.6-10.3) mg/dl Magnesium 1.6 L 2.2 1.7 (1.7-2.4) mg/dl Total Bilirubin 1.5 H D 0.9 (0.2-1.0) mg/dl AST 56 H 42 H (13-39) U/L ALT 36 33 (7-52) U/L Alkaline Phosphatase 513 H 318 H (34-104) U/L Total Creatine Kinase 27 L (30-223) U/L C-Reactive Protein 13.31 H 14.79 H (0-0.5) mg/dl Total Protein 5.7 L 5.4 L (6.0-8.3) gm/dl Albumin 2.1 L 2.0 L (3.4-5.0) gm/dl Globulin 3.6 3.4 (2.5-4.0) gm/dl Albumin/Globulin Ratio 0.6 L 0.6 L (0.9-2) Procalcitonin 2.76 H 4.36 H (0-0.5) ng/ml Stl C. diff Tox B Gene (Neg) Stl C. diff 027-NAP1-BI Random Vancomycin (10-20) mcg/ml Misc Micro Test Ref Lab Test Result 01/29/25 01/29/25 01/28/25 Range/Units 06:57 04:10 07:46 WBC 20.84 H 17.81 H (4.8-10.8) K/ul RBC 3.92 L 4.26 L (4.70-6.10) M/uL Hgb 10.1 L 11.0 L (14.0-18.0) g/dl Hct 30.9 L 33.7 L (42.0-52.0) % MCV 78.8 L 79.1 L (80.0-100.0) fL MCH 25.8 25.8 (25.0-34.0) pg MCHC 32.7 32.6 (32.0-36.0) g/dL RDW Std Deviation 47.7 H 46.9 H (36.4-46.3) fL RDW Coeff of Dru 16.8 H 16.8 H (11.5-14.5) % Plt Count 326 338 (130-400) K/uL MPV 9.5 9.5 (9.4-12.4) fL Immature Gran % (Auto) 2.0 2.3 % Neut % (Auto) 86.3 83.3 % Lymph % (Auto) 3.7 4.8 % Divide % (Auto) 6.7 8.0 % Eos % (Auto) 0.9 1.3 % Baso % (Auto) 0.4 0.3 % Neut # (Auto) 17.99 H 14.82 H (1.40-6.50) K/uL Lymph # (Auto) 0.78 L 0.85 L (1.20-3.40) K/uL Divide # (Auto) 1.39 H 1.43 H (0.11-0.59) K/uL Eos # (Auto) 0.18 0.24 (0.00-0.50) K/uL Baso # (Auto) 0.08 0.06 (0.00-0.20) K/uL Immature Gran # (Auto) 0.42 H 0.41 H (0.01-0.20) K/uL Sodium 129 L (136-145) mmol/L Potassium 2.8 L (3.5-5.1) mmol/L Chloride 101 (98-107) mmol/L Carbon Dioxide 18 L (21-32) mmol/L Anion Gap 10 (3-11) BUN 14 (6-23) mg/dl Creatinine 0.66 (0.6-1.4) mg/dl Est Cr Clr Drug Dosing 111.7 ml/min eGFR 111.46 BUN/Creatinine Ratio 21.2 H (10-20) Glucose 127 H (70-99(Fasting)) mg/dl POC Glucose (70-99) mg/dl Lactate (0.4-2.0) mmol/L Calcium 7.1 L (8.6-10.3) mg/dl Magnesium 1.7 (1.7-2.4) mg/dl Total Bilirubin 0.8 (0.2-1.0) mg/dl AST 43 H (13-39) U/L ALT 37 (7-52) U/L Alkaline Phosphatase 241 H (34-104) U/L Total Creatine Kinase (30-223) U/L C-Reactive Protein 17.48 H (0-0.5) mg/dl Total Protein 5.9 L (6.0-8.3) gm/dl Albumin 2.1 L (3.4-5.0) gm/dl Globulin 3.8 (2.5-4.0) gm/dl Albumin/Globulin Ratio 0.6 L (0.9-2) Procalcitonin Cancelled 3.94 H (0-0.5) ng/ml Stl C. diff Tox B Gene Negative Cdiff Gene (Neg) Stl C. diff 027-NAP1-BI NEGATIVE Random Vancomycin (10-20) mcg/ml Misc Micro Test Ref Lab Test Result See Scanned Report 01/28/25 01/27/25 01/27/25 Range/Units 07:27 16:23 13:55 WBC (4.8-10.8) K/ul RBC (4.70-6.10) M/uL Hgb (14.0-18.0) g/dl Hct (42.0-52.0) % MCV (80.0-100.0) fL MCH (25.0-34.0) pg MCHC (32.0-36.0) g/dL RDW Std Deviation (36.4-46.3) fL RDW Coeff of Dru (11.5-14.5) % Plt Count (130-400) K/uL MPV (9.4-12.4) fL Immature Gran % (Auto) % Neut % (Auto) % Lymph % (Auto) % Divide % (Auto) % Eos % (Auto) % Baso % (Auto) % Neut # (Auto) (1.40-6.50) K/uL Lymph # (Auto) (1.20-3.40) K/uL Divide # (Auto) (0.11-0.59) K/uL Eos # (Auto) (0.00-0.50) K/uL Baso # (Auto) (0.00-0.20) K/uL Immature Gran # (Auto) (0.01-0.20) K/uL Sodium 130 L (136-145) mmol/L Potassium 2.7 L (3.5-5.1) mmol/L Chloride 101 (98-107) mmol/L Carbon Dioxide 19 L (21-32) mmol/L Anion Gap 10 (3-11) BUN 15 (6-23) mg/dl Creatinine 0.72 (0.6-1.4) mg/dl Est Cr Clr Drug Dosing 102.2 ml/min eGFR 108.57 BUN/Creatinine Ratio 20.8 H (10-20) Glucose 112 H (70-99(Fasting)) mg/dl POC Glucose (70-99) mg/dl Lactate 1.8 2.7 H* (0.4-2.0) mmol/L Calcium 7.3 L (8.6-10.3) mg/dl Magnesium 1.6 L (1.7-2.4) mg/dl Total Bilirubin 0.8 (0.2-1.0) mg/dl AST 23 (13-39) U/L ALT 36 (7-52) U/L Alkaline Phosphatase 188 H (34-104) U/L Total Creatine Kinase (30-223) U/L C-Reactive Protein 19.57 H 22.45 H (0-0.5) mg/dl Total Protein 6.3 (6.0-8.3) gm/dl Albumin 2.2 L (3.4-5.0) gm/dl Globulin 4.1 H (2.5-4.0) gm/dl Albumin/Globulin Ratio 0.5 L (0.9-2) Procalcitonin 4.04 H (0-0.5) ng/ml Stl C. diff Tox B Gene (Neg) Stl C. diff 027-NAP1-BI Random Vancomycin (10-20) mcg/ml Misc Micro Test Ref Lab Test Result 01/27/25 01/27/25 01/26/25 Range/Units 07:59 05:37 07:43 WBC 18.98 H 17.83 H (4.8-10.8) K/ul RBC 3.88 L 3.45 L (4.70-6.10) M/uL Hgb 10.4 L 9.2 L (14.0-18.0) g/dl Hct 30.9 L 27.8 L (42.0-52.0) % MCV 79.6 L 80.6 (80.0-100.0) fL MCH 26.8 26.7 (25.0-34.0) pg MCHC 33.7 33.1 (32.0-36.0) g/dL RDW Std Deviation 46.9 H 48.4 H (36.4-46.3) fL RDW Coeff of Dru 16.8 H 16.7 H (11.5-14.5) % Plt Count 352 319 (130-400) K/uL MPV 9.2 L 9.2 L (9.4-12.4) fL Immature Gran % (Auto) 3.1 3.1 % Neut % (Auto) 81.3 83.4 % Lymph % (Auto) 5.3 4.0 % Divide % (Auto) 8.2 8.0 % Eos % (Auto) 1.7 1.2 % Baso % (Auto) 0.4 0.3 % Neut # (Auto) 15.44 H 14.86 H (1.40-6.50) K/uL Lymph # (Auto) 1.01 L 0.71 L (1.20-3.40) K/uL Divide # (Auto) 1.56 H 1.43 H (0.11-0.59) K/uL Eos # (Auto) 0.32 0.22 (0.00-0.50) K/uL Baso # (Auto) 0.07 0.06 (0.00-0.20) K/uL Immature Gran # (Auto) 0.58 H 0.55 H (0.01-0.20) K/uL Sodium 130 L 129 L (136-145) mmol/L Potassium 2.9 L 3.2 L (3.5-5.1) mmol/L Chloride 101 100 (98-107) mmol/L Carbon Dioxide 18 L 19 L (21-32) mmol/L Anion Gap 11 10 (3-11) BUN 19 21 (6-23) mg/dl Creatinine 0.77 0.72 (0.6-1.4) mg/dl Est Cr Clr Drug Dosing 95.6 107.0 ml/min eGFR 106.39 108.57 BUN/Creatinine Ratio 24.7 H 29.2 H (10-20) Glucose 119 H 170 H (70-99(Fasting)) mg/dl POC Glucose 141 H (70-99) mg/dl Lactate (0.4-2.0) mmol/L Calcium 7.3 L 7.2 L (8.6-10.3) mg/dl Magnesium 1.5 L (1.7-2.4) mg/dl Total Bilirubin 0.7 0.6 (0.2-1.0) mg/dl AST 24 29 (13-39) U/L ALT 46 61 H (7-52) U/L Alkaline Phosphatase 164 H 157 H (34-104) U/L Total Creatine Kinase (30-223) U/L C-Reactive Protein (0-0.5) mg/dl Total Protein 6.2 5.7 L (6.0-8.3) gm/dl Albumin 2.3 L 2.1 L (3.4-5.0) gm/dl Globulin 3.9 3.6 (2.5-4.0) gm/dl Albumin/Globulin Ratio 0.6 L 0.6 L (0.9-2) Procalcitonin (0-0.5) ng/ml Stl C. diff Tox B Gene (Neg) Stl C. diff 027-NAP1-BI Random Vancomycin (10-20) mcg/ml Misc Micro Test Ref Lab Test Result 01/25/25 01/25/25 01/22/25 Range/Units 08:01 04:39 08:51 WBC 17.27 H (4.8-10.8) K/ul RBC 4.14 L (4.70-6.10) M/uL Hgb 10.7 L (14.0-18.0) g/dl Hct 33.4 L (42.0-52.0) % MCV 80.7 (80.0-100.0) fL MCH 25.8 (25.0-34.0) pg MCHC 32.0 (32.0-36.0) g/dL RDW Std Deviation 47.0 H (36.4-46.3) fL RDW Coeff of Dru 16.4 H (11.5-14.5) % Plt Count 309 (130-400) K/uL MPV 8.6 L (9.4-12.4) fL Immature Gran % (Auto) 4.2 % Neut % (Auto) 83.5 % Lymph % (Auto) 4.7 % Divide % (Auto) 6.3 % Eos % (Auto) 1.0 % Baso % (Auto) 0.3 % Neut # (Auto) 14.42 H (1.40-6.50) K/uL Lymph # (Auto) 0.81 L (1.20-3.40) K/uL Divide # (Auto) 1.08 H (0.11-0.59) K/uL Eos # (Auto) 0.18 (0.00-0.50) K/uL Baso # (Auto) 0.05 (0.00-0.20) K/uL Immature Gran # (Auto) 0.73 H (0.01-0.20) K/uL Sodium 132 L (136-145) mmol/L Potassium 3.4 L (3.5-5.1) mmol/L Chloride 100 (98-107) mmol/L Carbon Dioxide 24 (21-32) mmol/L Anion Gap 8 (3-11) BUN 18 (6-23) mg/dl Creatinine 0.78 (0.6-1.4) mg/dl Est Cr Clr Drug Dosing 101.4 ml/min eGFR 105.98 BUN/Creatinine Ratio 23.1 H (10-20) Glucose 134 H (70-99(Fasting)) mg/dl POC Glucose 142 H (70-99) mg/dl Lactate (0.4-2.0) mmol/L Calcium 7.8 L (8.6-10.3) mg/dl Magnesium 1.4 L (1.7-2.4) mg/dl Total Bilirubin 0.7 (0.2-1.0) mg/dl AST 164 H (13-39) U/L ALT 129 H (7-52) U/L Alkaline Phosphatase 217 H (34-104) U/L Total Creatine Kinase (30-223) U/L C-Reactive Protein (0-0.5) mg/dl Total Protein 6.2 (6.0-8.3) gm/dl Albumin 2.2 L (3.4-5.0) gm/dl Globulin 4.0 (2.5-4.0) gm/dl Albumin/Globulin Ratio 0.6 L (0.9-2) Procalcitonin (0-0.5) ng/ml Stl C. diff Tox B Gene (Neg) Stl C. diff 027-NAP1-BI Random Vancomycin 11.6 (10-20) mcg/ml Misc Micro Test Pending Ref Lab Test Result 01/22/25 Range/Units 08:42 WBC (4.8-10.8) K/ul RBC (4.70-6.10) M/uL Hgb (14.0-18.0) g/dl Hct (42.0-52.0) % MCV (80.0-100.0) fL MCH (25.0-34.0) pg MCHC (32.0-36.0) g/dL RDW Std Deviation (36.4-46.3) fL RDW Coeff of Dru (11.5-14.5) % Plt Count (130-400) K/uL MPV (9.4-12.4) fL Immature Gran % (Auto) % Neut % (Auto) % Lymph % (Auto) % Divide % (Auto) % Eos % (Auto) % Baso % (Auto) % Neut # (Auto) (1.40-6.50) K/uL Lymph # (Auto) (1.20-3.40) K/uL Divide # (Auto) (0.11-0.59) K/uL Eos # (Auto) (0.00-0.50) K/uL Baso # (Auto) (0.00-0.20) K/uL Immature Gran # (Auto) (0.01-0.20) K/uL Sodium (136-145) mmol/L Potassium (3.5-5.1) mmol/L Chloride (98-107) mmol/L Carbon Dioxide (21-32) mmol/L Anion Gap (3-11) BUN (6-23) mg/dl Creatinine (0.6-1.4) mg/dl Est Cr Clr Drug Dosing ml/min eGFR BUN/Creatinine Ratio (10-20) Glucose (70-99(Fasting)) mg/dl POC Glucose (70-99) mg/dl Lactate (0.4-2.0) mmol/L Calcium (8.6-10.3) mg/dl Magnesium (1.7-2.4) mg/dl Total Bilirubin (0.2-1.0) mg/dl AST (13-39) U/L ALT (7-52) U/L Alkaline Phosphatase (34-104) U/L Total Creatine Kinase (30-223) U/L C-Reactive Protein (0-0.5) mg/dl Total Protein (6.0-8.3) gm/dl Albumin (3.4-5.0) gm/dl Globulin (2.5-4.0) gm/dl Albumin/Globulin Ratio (0.9-2) Procalcitonin (0-0.5) ng/ml Stl C. diff Tox B Gene (Neg) Stl C. diff 027-NAP1-BI Random Vancomycin (10-20) mcg/ml Misc Micro Test See Scanned Report Ref Lab Test Result Diagnostic Findings Chest X-Ray 01/19/25 17:38 Clinical History: Sepsis Technique: A frontal view of the chest was obtained Comparison is made to the prior examination today 03/09/2024 Findings: There is mild left lung base atelectasis. The heart size is within normal limits. No pleural effusion or pneumothorax is seen. There is suspected mild pulmonary edema No fracture is noted. No foreign body is seen Impression: Suspected mild pulmonary edema Electronically signed by Salvador Braun 01-19-2025 6:29 PM Abdomen/Pelvis CTA 01/19/25 20:30 Exam(s): CTA ABDOMEN + PELVIS With Contrast IV Amt: 118 cc opt i320 EXAM: CT Abdomen and Pelvis With Intravenous Contrast CLINICAL HISTORY: hypotension, hb 5.8, rectal mass. TECHNIQUE: Axial computed tomographic images of the abdomen and pelvis with intravenous contrast. CTDI is 17.1 mGy and DLP is 1048.04 mGy-cm. Automated exposure control was utilized for the study. A dose lowering technique was utilized adhering to the principles of ALARA. CONTRAST: Patient received 118 cc opt i320 of IV contrast COMPARISON: CTA abdomen and pelvis without contrast 03/07/2024 FINDINGS: VASCULATURE: Aorta: No acute findings. No abdominal aortic aneurysm. No dissection. Celiac trunk and mesenteric arteries: No acute findings. No occlusion or significant stenosis. Renal arteries: No acute findings. No occlusion or significant stenosis. Iliac arteries: No acute findings. No occlusion or significant stenosis. Lung bases: Minimal dependent subsegmental changes in the posterior lower lobes. No consolidation. ABDOMEN: Liver: Unremarkable. No mass. Gallbladder and bile ducts: Solitary subcentimeter gallstone. No gallbladder wall thickening. No ductal dilation. Pancreas: Similar calcifications involving the tail of the pancreas and at the pancreatic head consistent with chronic pancreatitis. However, there is new peripancreatic fat stranding and edema surrounding the pancreas. No ductal dilation. Spleen: Unremarkable. No splenomegaly. Adrenals: Unremarkable. No mass. Kidneys and ureters: Moderate bilateral hydroureteronephrosis with distention of the ureters extending to the pelvic mass. Stomach and bowel: The previously noted soft tissue rectal mass previously filling the pelvic outlet and extending below the pelvic floor has expanded with invasion of the obturator muscles, [id number]- left. There is also further extension inferiorly below the pelvic floor with involvement of the medial aspect of the gluteal muscles bilaterally. There is also extension to the skin surface with a pedunculated masslike component on the left now identified measuring 5.5 x 3.3 x 3.4 cm. There is heterogeneous enhancement of the mass but no obvious active arterial extravasation internally. No evidence for high-grade bowel obstruction. No evidence for intraluminal contrast extravasation within the stomach, small bowel or proximal colonic segments extending to the left lower quadrant colostomy, accounting for limitations with respiratory artifact. PELVIS: Appendix: No findings to suggest acute appendicitis. Bladder: The bladder is prominently displaced anteriorly with a Fox catheter in position. There is obliteration of the fat plane between the mass in the posterior aspect of the bladder with diffuse bladder wall prominence. Reproductive: Unremarkable as visualized. ABDOMEN and PELVIS: Intraperitoneal space: Unremarkable. No significant fluid collection. No free air. Bones/joints: No acute fracture. No dislocation. Soft tissues: Unremarkable. Lymph nodes: Unremarkable. No enlarged lymph nodes. IMPRESSION: 1. The previously noted soft tissue rectal mass previously filling the pelvic outlet and extending below the pelvic floor has expanded with invasion of the obturator muscles, [id number]-left. There is also further extension inferiorly below the pelvic floor with involvement of the medial aspect of the gluteal muscles bilaterally. There is also extension to the skin surface with a pedunculated masslike component on the left now identified measuring 5.5 x 3.3 x 3.4 cm. There is heterogeneous enhancement of the mass but no obvious active arterial extravasation internally. 2. No evidence for high-grade bowel obstruction. No evidence for intraluminal contrast extravasation within the stomach, small bowel or proximal colonic segments extending to the left lower quadrant colostomy, accounting for limitations with respiratory artifact. 3. Similar calcifications involving the tail of the pancreas and at the pancreatic head consistent with chronic pancreatitis. However, there is new peripancreatic fat stranding and edema surrounding the pancreas. The appearance is consistent with acute pancreatitis. 4. Moderate bilateral hydroureteronephrosis with distention of the ureters extending to the pelvic mass. A component of urinary retention is suspected from extrinsic compression by the mass. Electronically signed by: Tyree Hill MD 01/19/25 22:18 PM Retrograde Pyelogram 01/20/25 12:00 FL retrograde includes kub CLINICAL HISTORY: STENT COMPARISON STUDY: None FLUOROSCOPY TIME: FLUOROSCOPY IMAGES: 5 EXPOSURE DOSE: 18 mGy FINDINGS: Fluoroscopy was provided for urologic procedure. IMPRESSION: Intraoperative fluoroscopy. ACT 112: Negative or not required by law. Electronically signed by: Kehinde Thorpe M.D. 01/20/2025 3:39 PM KUB X-Ray 01/28/25 09:13 KUB HISTORY: worsening labs. constipation/ stercoral colitis? COMPARISON STUDY: 01/19/2025 CT FINDINGS: There are interval well positioned appearing bilateral ureteral stents. Urinary bladder catheter is stable. Left lower quadrant ostomy is better seen on the prior CT. There is mild retained stool. No bowel obstruction seen. No gross free air. IMPRESSION: Mild retained stool with no specific evidence of bowel obstruction seen. ACT 112: Negative or not required by law. The above report was generated using voice recognition software. It may contain grammatical, syntax or spelling errors. Electronically signed by: Kehinde Thorpe M.D. 01/28/2025 9:47 AM PG Care Time/CCT Total # of Minutes Spent Total Time Spent with Patient: Total time spent is greater than 50% in coordination of care (as documented) at patient's floor/unit and/or counseling patient: I spent 35 minutes overall addressing this case: 10 min in medical data review/discussion with referring provider(s) and/or preparation for the visit 10 min in direct interaction with the patient/exam 00 min in Advance Care Planning/Goals of Care discussions as detailed above in note (must be >16min) 10 min in subsequent review and synthesis of assessment and plan 5 min communicating with other providers regarding the patient's case: primary team, nursing, care mgt [place] [address] SUB INP/OBS CARE 2/35MIN Patient Type Established History Detailed Exam Detailed Medical Decision Making High Complexity Diagnoses Cancer related pain G89.3 Weakness generalized R53.1 Palliative care by specialist Z51.5 Comment [id number]
[2025-02-01 06:57] LABS: Hematocrit (blood only) 31.0 % (42.0-52.0); Hemoglobin 10.1 g/dl (14.0-18.0); Immature Granulocytes # (auto) 0.20 K/uL (0.01-0.20); Immature Granulocytes % (auto) 1.0 %; Mean Corpuscular Hemoglobin 26.4 pg (25.0-34.0); Mean Corpuscular Volume 80.9 fL (80.0-100.0); Platelet Count 304 K/uL (130-400); RDW Standard Deviation 48.5 fL (36.4-46.3); Red Blood Count 3.83 M/uL (4.70-6.10); White Blood Count 19.46 K/ul (4.8-10.8)
[2025-02-01 07:13] LABS: Anion Gap 8.0 (3-11); Blood Urea Nitrogen 8.0 mg/dl (6-23); Calcium 6.8 mg/dl (8.6-10.3); Carbon Dioxide 20.0 mmol/L (21-32); Chloride 102.0 mmol/L (98-107); Creatinine Clr Calc Pharmacy 145.7 ml/min; Glucose 101.0 mg/dl (70-99(Fasting)); Potassium 2.8 mmol/L (3.5-5.1); Sodium 130.0 mmol/L (136-145)
--- NOTE | 2025-02-01 12:18 | Hospitalist Progress Note ---
Date of Service February 01, 2025 Assessment & Plan (1) Carbapenem-resistant Acinetobacter baumannii infection: (2) Bacteremia due to Enterococcus: (3) Bacteremia due to Klebsiella pneumoniae: (4) Complicated UTI (urinary tract infection): (5) Rectal mass: (6) Electrolyte depletion: (7) Transaminitis: Plan 54 yo M with rectal cancer with colostomy s/p radiation and completed 8 cycles of FOLFOX (09/20/24) with disease progression despite treatment, schizophrenia, HTN, DM2 who presented on 01/19 with worsening confusion, hypotension, found to have polymicrobial bacteremia (XDR Acinetobacter baumannii, E faecium, Kleb pneumo) likely 2/2 bilateral hydroureteronephrosis from obstructing pelvic mass, s/p bilateral ureteral stents (01/20/25). Initially in the ICU briefly on 01/20 but was downgraded when code status from full code to DNR/DNI by patient sister who is POA. Etiology of severe septic shock with end-organ failure (e.g., acute kidney injury) was due to catheter-associated UTI with hematogenous dissemination. Severe septic shock has RESOLVED, and so too has end-organ failure (e.g., acute kidney injury) RESOLVED, as shown above by the progressive decline in creatinine levels. In addition to empiric antibiotics patient has received IV fluid rehydration therapy Severe sepsis with septic shock/UTI - Septic shock has resolved with MAP > 65, and evidence of end organ damage has resolved Cr improvements - Ucx positive for 2 strains A. baumannii, E. Faecium and E. Facaelis - Bcx positive for A. baumannii/nosoco - Lactic acid, procalcitonin, and WBC counts downtrending and vitals h emodynamically stable - Patient has been on several abx therapy including ceftriaxone and Zosyn; This was switched to Unasyn, meropenem and vancomycin with the rationale supporting coverage for Enterococcus with vancomycin and A. Baumannii with Unasyn and meropenem - Due to positive Bcx with complex organism, ID consulted appreciate recs stated below: - For carbapenem-resistant Acinetobacter baumannii: - Changed amp-sulbactam to 9 g q8h extended infusion over 4 hours - Started tigecycline 200 mg x 1, followed by 100 mg q12h -Ordered a 1 time dose of amikacin 15 mg/kg -Changed vanc to daptomycin 12 mg/kg IV q24h -Abx course recommended until 02/02 for a total 10 day course since abx change for gram negative bacteremia/sepsis - Increased WBCs to 18.93, lactate: 2.7, Pro-calcitonin: 4.04 and CRP: 22 trending up since Abx change 01/24, will order new blood cultures with increase in inflammatory response; Inflammatory markers have begun to trend down today 01/28 WBC: 17.81, lactate reflux: 1.8, Procal: 3.94, CRP: 19.57. WBCs/inflammatory markers increased again this AM 01/29, CRP downtrended. Fluctuating WBC/Procal/CRP, reductions to these markers 01/31-02/01. - Monitor Bcx, appreciate continued ID recs - Stool studies for C.diff toxin ordered - Continue to monitor with CBC, procalcitonin, CRP, CMP QAM Colorectal carcinoma CT angiography abdomen pelvis showing significant increase in size compared to previous with extension of rectal mass to skin and invasion of obturator and gluteal muscles Was told up at [facility] that he was not currently a surgical candidate Patient with previous chemoradiation treatments and after recent DNR/DNI transition will call POA and attempt goals of care discussion for probably hospice/palliative intervention Palliative care consult placed, appreciate recommendations: Family have discussed that they are not ready to care for patient at home due to significant stressors and burden on mother who would be primary orthotic/prosthetic clinician. Patient will complete Abx therapy at [facility] through 02/02 and then transfer to SNF for further rehab. Current plan is for home with hospice care when abx therapy is completed 02/02 per patient preference and family discussions with palliative care Transaminitis - Acutely worsened 01/25, AST: 164, ALT: 129, Alk Phos: 217 - 01/26 LFTs improving, AST: 29, ALT: 61, and Alk Phos: 157 - Continue to monitor, CMP QAM BUDDY Resolved Secondary to hypovolemia associated with anemia and dehydration Repeat laboratories in a.m. after more aggressive fluid resuscitation Electrolyte disturbances/hyperkalemia/hypomagnesemia- No signs of ectopy on monitor in the ED Potassium 5.8 on admission, likely secondary to acute kidney injury Repeat in a.m. after having received 2 L normal saline and PRBCs Continue Mg/K+ replenishment as needed - evaluate with AM CMP and Mg studies Diabetes mellitus- Hold metformin ICU protocol-resistant E faecalis bacteremia in November 2024). Baseline CK 17 on 01/24/25 -Continue monitoring Bcxs Admission and Anticipated Discharge Date Admission Date: January 19, 2025 Supervising Physician Co-Signing Physician Notes I personally examined the patient and verified all cornelius points of history and exam, discussed case, and agree with decision making with Dr Hayes no new issues, updated that goal is home 02/03. Vitals noted, in general he is awake and alert pleasant no distress. Appears somewhat emaciated. Breathing unlabored no accessory muscle use good effort. Skin without rashes pallor or icterus. Neuro without focal deficits. acintenobacter bacteremiacontinue current antibiotics. on 01/30, discussed with infectious disease, anticipate this will continue to improve. Follow-up cultures are no growth to date inflammatory markers are trending down and he appears to be asymptomatic. Anticipated end of treatment is 02/02. continue current care for now Rectal cancerunfortunately beyond any meaningful treatment. He would like to go home. currently plan is home health/home PT 02/03 SCDs for DVT proph Subjective Brian Denney is seen resting comfortably this AM. Patient denies pain, chest pain, palpitations, abdominal discomfort, nausea, vomiting, headaches, fevers, and chills. Patient does endorse low appetite and reports that he does not like the food other than fruit. Otherwise patient does not have acute complaints and remain afebrile and hemodynamically stable. Physical Exam Physical Exam: General: patient resting comfortably, NAD, non-toxic in appearance, answers questions appropriately. Skin: warm, dry, intact HEENT: NC/AT, anicteric sclera, conjunctiva without injection, moist mucus membranes. Heart: +S1/S2, regular, no m/r/g Lungs: equal air entry bilaterally, no rales/rhonchi/wheezes Abd: +BS, soft, NT/ND Ext: warm, no clubbing/cyanosis or edema Neuro: nonfocal, speech intact, no facial droop, moving all extremities. Results & Data Results & Data Vital Signs (Past 12 Hours) Vital Signs Temp Pulse Pulse Resp BP Pulse Ox O2 Del Method 02/01/25 11:18 36.5 C 104 H 16 115/79 100 Room Air 02/01/25 07:50 36.6 C 117 H 18 116/76 100 Room Air 02/01/25 07:18 114 H 02/01/25 02:03 109 H 16 110/64 99 Room Air Resident Activity Tracking Resident Involvement: Resident Care Provided Care Provided: Adult Hospital Medicine
--- NOTE | 2025-02-01 17:55 | Billing Data ---
Date of Service February 01, 2025 Coding Level of Care Code 18416 SUB INP/OBS CARE
[2025-02-01] MEDS: ONDANSETRON INJ 2 MG/ML 2 ML VIAL IV PRN (18:02)
[2025-02-02 09:08] LABS: Hematocrit (blood only) 32.9 % (42.0-52.0); Hemoglobin 10.6 g/dl (14.0-18.0); Mean Corpuscular Hemoglobin 26.2 pg (25.0-34.0); Mean Corpuscular Volume 81.2 fL (80.0-100.0); Platelet Count 235 K/uL (130-400); RDW Standard Deviation 50.3 fL (36.4-46.3); Red Blood Count 4.05 M/uL (4.70-6.10); White Blood Count 12.78 K/ul (4.8-10.8)
[2025-02-02 09:23] LABS: Anion Gap 6.0 (3-11); Blood Urea Nitrogen 7.0 mg/dl (6-23); Calcium 7.0 mg/dl (8.6-10.3); Carbon Dioxide 23.0 mmol/L (21-32); Chloride 103.0 mmol/L (98-107); Creatinine Clr Calc Pharmacy 137.0 ml/min; Glucose 107.0 mg/dl (70-99(Fasting)); Potassium 3.1 mmol/L (3.5-5.1); Sodium 132.0 mmol/L (136-145)
[2025-02-02 09:24] LABS: Immature Granulocytes # (auto) 0.10 K/uL (0.01-0.20); Immature Granulocytes % (auto) 0.8 %
--- NOTE | 2025-02-02 10:14 | Palliative Family Discussion ---
Date of Service February 02, 2025 Patient Directed Conference Time of Meetin:10 - 10:40 Participants: Keesha Mendosa AGACNP Patient participation: no Patient Support System: parents and two sisters Other Healthcare Provider Participation: None Meeting Location: telephonic Advanced Directive available: no If yes, descriptors: n/a The patient's surrogate medical decision maker participated: yes Legally authorized health care proxy: Per PA [id number], in absence of written documentation of patient wishes, pt's proxy for medical decisions would be his parents. Other surrogate: Pt has consistently verbalized that he trusts his sister Jeannie to serve as primary proxy for medical decisions in the event he lacks decisional capacity. A family meeting was held for KEVIN KELLER. This meeting was necessary for determining the appropriate course of treatment. Topics of Discussion Topics of Discussion: 1. goals of care 2. comfort directed care 3. hospice Other Content of Meetin. Opportunity given for participants to speak and ask questions. 2. Participants were assured of attention to patient comfort. 3. Reassurance provided. 4. Support was provided for informed, good-maryellen decisions. 5. Emotions expressed by family were acknowledged and addressed. 6. Follow-up Outpatient: n/a 7. Plan of Care: [facility], home with [facility] hospice Patient continues to exhibits lack of decisional capacity based on the inability to convey understanding of personal PMHx, current medical condition, treatment options nor the risks / benefits/ potential outcomes of accepting/declining those options, and inability to make decisions based on such knowledge. Hospital does not have written documentation of patient wishes concerning his chosen proxy for medical decisions. Per PA [id number], in absence of written documentation of patient wishes, pt's proxy for medical decisions would be his parents. Pt has consistently verbalized that he trusts his sister Jeannie to serve as as primary proxy for medical decisions in the event he lacks decisional capacity. Pt does currently require a proxy for medical decisions. Spoke at length with pt's sister by phone today. Jeannie shared that the family had spent time at bedside last evening and are worried that he declining rapidly and becoming more dependent on nurses for all his care. She expressed concern that the pt has expressed awareness "that he is dying" desire to not come back to the hospital again after discharge. She shared that they had lengthy family discussion last night and have made plan to have 24hr caretakers to assist Mom in caring for patient at home. Jeannie and her sister Tami, who is a RN, and their uncle will take turns to make sure some one is always with the patient in addition to his mom. We discussed that if pt goes home with [facility] and acutely decompensates he would be brought to the ED and likely admitted. Jeannie shared that the pt most values being home and has expressed wish to be home with his family at the time of his . For this reason, the family is requesting transition to [facility] with plan for discharge to home with hospice. Reinforced prior teaching of hospice benefit: an interdisciplinary program offered by nurses, nurses aides, social workers, chaplains and a front office medical assistant for patients with a terminal condition and a life expectancy of less than 6 months. This is covered by Medicare at 100%/no out of pocket expense to patient and all meds/supplies needed by patient for the reason they are on hospice are paid for/covered by hospice. The goal is assure quality of life of the patient in their home setting (home, retirement, inpatient hospice setting) by providing symptoms management, psychosocial and spiritual support. However, they cannot offer 24 hours care and if the family is unable to provide that care, they will have to consider personal care with out of pocket cost vs. retirement placement. We discussed the goals of hospice as a patient service and the goals of care; we discussed EOL trajectories and transitions fabi the emotional impact of realizing mortality as a concrete reality from prior abstrac t considerations. Pt was reassured that no matter where they are along this trajectory, they are not alone - their medical team will remain by their side through their journey. Discussed the pros/cons of accepting help when especially weakened and distressed by pain-which would also help provide relief/decrease caregiver burden/strain. Discussed changes pt may move through in the dying process including but not limited to sleeping more, disorientation when awake, restlessness, diminished senses/inability to respond to stimulus although ability to be aware of them remains intact longer, and changes in body temperatures, skin changes/mottling/cyanosis, respiratory pattern changes, and oral secretions. Family verbalized understanding. The goal is to assure a peaceful . [facility] orders placed, CM and attending team made aware. Time Involved in Meeting: I spent 60 minutes overall addressing this case: 10 in medical data review/discussion with referring provider(s) and/or preparation for the visit 30 in direct interaction with the patient's sister 30 Advance Care Planning/Goals of Care discussions as detailed above in note (must be >16min) 10 in subsequent review and synthesis of assessment and plan 10 in communicating with other providers regarding the patient's case: attending team, BSRHeather, CM
[2025-02-02] MEDS ORDERED: HYOSCYAMINE SULFATE 0.125 MG TAB SL PRN (10:46)
[2025-02-02] MEDS ORDERED: ONDANSETRON 4 MG OD TAB SL PRN (10:46)
[2025-02-02] MEDS ORDERED: ATROPINE SULFATE 1% OP SOLN 5 ML BTL SL PRN (10:46)
[2025-02-02] MEDS ORDERED: PROCHLORPERAZINE 5 MG in SYRINGE 4 ML IV PRN (10:46)
[2025-02-02] MEDS ORDERED: HALOPERIDOL ORAL SOLN 2 MG/ML PO PRN (10:46)
[2025-02-02] MEDS ORDERED: MoRPHine SULFATE 10 MG/0.5 ML UDP PO PRN (10:46)
[2025-02-02] MEDS ORDERED: PROMETHAZINE 12.5 MG/50.5 ML BAG IV PRN (10:46)
[2025-02-02] MEDS ORDERED: GLYCOPYRROLATE 0.2 MG/ML VIAL IV PRN (10:46)
--- NOTE | 2025-02-02 13:29 | Hospitalist Progress Note ---
Date of Service February 02, 2025 Assessment & Plan (1) Carbapenem-resistant Acinetobacter baumannii infection: (2) Bacteremia due to Enterococcus: (3) Bacteremia due to Klebsiella pneumoniae: (4) Complicated UTI (urinary tract infection): (5) Rectal mass: (6) Electrolyte depletion: (7) Transaminitis: Plan 54 yo M with rectal cancer with colostomy s/p radiation and completed 8 cycles of FOLFOX (09/20/24) with disease progression despite treatment, schizophrenia, HTN, DM2 who presented on 01/19 with worsening confusion, hypotension, found to have polymicrobial bacteremia (XDR Acinetobacter baumannii, E faecium, Kleb pneumo) likely 2/2 bilateral hydroureteronephrosis from obstructing pelvic mass, s/p bilateral ureteral stents (01/20/25). Initially in the ICU briefly on 01/20 but was downgraded when code status from full code to DNR/DNI by patient sister who is POA. Etiology of severe septic shock with end-organ failure (e.g., acute kidney injury) was due to catheter-associated UTI with hematogenous dissemination. Severe septic shock has RESOLVED, and so too has end-organ failure (e.g., acute kidney injury) RESOLVED, as shown above by the progressive decline in creatinine levels. In addition to empiric antibiotics patient has received IV fluid rehydration therapy Severe sepsis with septic shock/UTI - Septic shock has resolved with MAP > 65, and evidence of end organ damage has resolved Cr improvements - Ucx positive for 2 strains A. baumannii, E. Faecium and E. Facaelis - Bcx positive for A. baumannii/nosoco - Lactic acid, procalcitonin, and WBC counts downtrending and vitals h emodynamically stable - Patient has been on several abx therapy including ceftriaxone and Zosyn; This was switched to Unasyn, meropenem and vancomycin with the rationale supporting coverage for Enterococcus with vancomycin and A. Baumannii with Unasyn and meropenem - Due to positive Bcx with complex organism, ID consulted appreciate recs stated below: - For carbapenem-resistant Acinetobacter baumannii: - Changed amp-sulbactam to 9 g q8h extended infusion over 4 hours - Started tigecycline 200 mg x 1, followed by 100 mg q12h -Ordered a 1 time dose of amikacin 15 mg/kg -Changed vanc to daptomycin 12 mg/kg IV q24h -Abx course recommended until 02/02 for a total 10 day course since abx change for gram negative bacteremia/sepsis - Increased WBCs to 18.93, lactate: 2.7, Pro-calcitonin: 4.04 and CRP: 22 trending up since Abx change 01/24, will order new blood cultures with increase in inflammatory response; Inflammatory markers have begun to trend down today 01/28 WBC: 17.81, lactate reflux: 1.8, Procal: 3.94, CRP: 19.57. WBCs/inflammatory markers increased again this AM 01/29, CRP downtrended. Fluctuating WBC/Procal/CRP, reductions to these markers 01/31-02/02. - Monitor Bcx, appreciate continued ID recs - Stool studies for C.diff toxin ordered: negative - Continue to monitor with CBC, procalcitonin, CRP, CMP QAM Colorectal carcinoma CT angiography abdomen pelvis showing significant increase in size compared to previous with extension of rectal mass to skin and invasion of obturator and gluteal muscles Was told up [facility] that he was not currently a surgical candidate Patient with previous chemoradiation treatments and after recent DNR/DNI transition will call POA and attempt goals of care discussion for probably hospice/palliative intervention Palliative care consult placed, appreciate recommendations: Family have discussed that they are not ready to care for patient at home due to significant stressors and burden on mother who would be primary wide load escort. Patient will complete Abx therapy at [facility] through 02/02 and then transfer to SNF for further rehab. Current plan is for home with [facility] home hospice care when abx therapy is completed 02/02 per patient preference and family discussions with palliative care Transaminitis - Acutely worsened 01/25, AST: 164, ALT: 129, Alk Phos: 217 - 01/26 LFTs improving, AST: 29, ALT: 61, and Alk Phos: 157 - Continue to monitor, CMP QAM BUDDY Resolved Secondary to hypovolemia associated with anemia and dehydration Repeat laboratories in a.m. after more aggressive fluid resuscitation Electrolyte disturbances/hyperkalemia/hypomagnesemia- No signs of ectopy on monitor in the ED Potassium 5.8 on admission, likely secondary to acute kidney injury Repeat in a.m. after having received 2 L normal saline and PRBCs Continue Mg/K+ replenishment as needed - evaluate with AM CMP and Mg studies Diabetes mellitus- Hold metformin ICU protocol-resistant E faecalis bacteremia in November 2024). Baseline CK 17 on 01/24/25 -Continue monitoring Bcxs Admission and Anticipated Discharge Date Admission Date: January 19, 2025 Supervising Physician Co-Signing Physician Notes I personally examined the patient and verified all cornelius points of history and exam, discussed case, and agree with decision making with Dr Hayes no new issues, he is happy about goal of home tomorrow. wonders if we could send him with some extra ostomy supplies. Vitals noted, in general he is awake and alert pleasant no distress. Appears somewhat emaciated. Breathing unlabored no accessory muscle use good effort. Skin without rashes pallor or icterus. Neuro without focal deficits. acintenobacter bacteremiacontinue current antibiotics. on 01/30, discussed with infectious disease, anticipate this will continue to improve. Follow-up cultures are no growth to date inflammatory markers are trending down and he appears to be asymptomatic. today last day of IV abx. Rectal cancerunfortunately beyond any meaningful treatment. He would like to go home. this is being arranged for 02/03 SCDs for DVT proph Subjective Brian Denney is seen resting comfortably this AM. Patient denies pain, chest pain, palpitations, abdominal discomfort, nausea, vomiting, headaches, fevers, and chills. Today patient does not have acute complaints and remain afebrile and hemodynamically stable. Physical Exam Physical Exam: General: patient resting comfortably, NAD, non-toxic in appearance, answers questions appropriately. Skin: warm, dry, intact HEENT: NC/AT, anicteric sclera, conjunctiva without injection, moist mucus membranes. Heart: +S1/S2, regular, no m/r/g Lungs: equal air entry bilaterally, no rales/rhonchi/wheezes Abd: +BS, soft, NT/ND Ext: warm, no clubbing/cyanosis or edema Neuro: nonfocal, speech intact, no facial droop, moving all extremities. Results & Data Results & Data Vital Signs (Past 12 Hours) Vital Signs Temp Pulse Pulse Resp BP Pulse Ox O2 Del Method 02/02/25 11:19 36.5 C 105 H 16 113/81 100 Room Air 02/02/25 09:40 88 02/02/25 08:21 36.5 C 114 H 16 107/77 100 Room Air 02/02/25 07:34 Room Air 02/02/25 04:00 36.5 C 104 H 18 114/74 100 Room Air Resident Activity Tracking Resident Involvement: Resident Care Provided Care Provided: Adult Hospital Medicine
--- NOTE | 2025-02-02 17:12 | Billing Data ---
Date of Service February 02, 2025 Coding Level of Care Code 58012 SUB INP/OBS CARE
[2025-02-02 20:25] VITALS: RESP 18; TEMP 97.5
[2025-02-02 22:29] VITALS: PULSE 102; O2SAT 100
--- NOTE | 2025-02-03 07:12 | Discharge Summary ---
Date of Service February 03, 2025 Admission HPI Per Admitting Provider The patient is a 54-year-old male with a past medical history including rectal mass, severe sepsis with septic shock requiring ICU admission from 03/08-03/13/2024, acute bilateral obstructive uropathy, hyponatremia, schizophrenia, anemia and history of lactic acidosis. The patient was brought to the emergency department due to family concerns regarding worsening confusion. The patient himself had no current complaints. Patient has a known history of rectal mass, for which he was seen at [facility] 3 days ago, and was told that he was not a candidate for surgical treatment at that time. His hemoglobin per family at that visit was 8.9, and upon arrival to the ED today, his hemoglobin is 5.8. He was also found to be hypotensive, with blood pressure 78/52, and was started on Levophed infusion at that time. He was also found to have acute kidney injury, with creatinine 1.81, and base of 0.37. [facility] Admission Exam Per Admitting Provider The patient is awake, lethargic, pale, lying in bed and in no acute distress. HEENT--PERRL, EOMI, mucous membranes and oropharynx dry. Neck--supple. No JVD. No bruits. Thyroid normal, trachea midline, no adenopathy. Heart--normal S1 and S2. No murmurs, rubs or gallops. Lungs--clear bilaterally, no respiratory distress, no accessory muscle use. Abdomen--normal bowel sounds and soft. Nontender. Nondistended Extremities--no cyanosis or clubbing. No edema. Dermatologic--normal skin turgor, normal color, no abnormal lymph nodes, no rash. Neurologic--cranial nerves II through XII grossly intact. Rheumatologic--normal range of motion. Psychiatric--flat affect. Principal Diagnosis Septic shock Discharge Exam General: patient resting comfortably, NAD, non-toxic in appearance, answers questions appropriately. Skin: warm, dry, intact HEENT: NC/AT, anicteric sclera, conjunctiva without injection, moist mucus membranes. Heart: +S1/S2, regular, no m/r/g Lungs: equal air entry bilaterally, no rales/rhonchi/wheezes Abd: +BS, soft, NT/ND Ext: warm, no clubbing/cyanosis or edema Neuro: nonfocal, speech intact, no facial droop, moving all extremities. Discharge Data Allergies Allergy/AdvReac Type Severity Reaction Status Date / Time aspirin Allergy Mild Unknown Unverified 03/07/24 22:24 Penicillins Allergy Mild Unknown Verified 03/07/24 22:24 cefepime Allergy Confusion Verified 01/19/25 18:53 Consultations 01/19/25 22:15 ED Decision to Admit Stat 01/24/25 08:10 Consult Infectious Diseases Routine 01/25/25 12:45 Consult Palliative Care Routine Procedures Performed Operation Date: 01/20/25 12:50 <No data on this case meets the specified criteria> Ordered Studies 01/19/25 20:30 CT angio abdomen pelvis w con Stat 01/20/25 12:00 FL retrograde includes kub Routine Hospital Course (1) Carbapenem-resistant Acinetobacter baumannii infection: (2) Bacteremia due to Enterococcus: (3) Bacteremia due to Klebsiella pneumoniae: (4) Complicated UTI (urinary tract infection): (5) Rectal mass: (6) Electrolyte depletion: (7) Transaminitis: Plan 54 yo M with rectal cancer with colostomy s/p radiation and completed 8 cycles of FOLFOX (09/20/24) with disease progression despite treatment, schizophrenia, HTN, DM2 who presented on 01/19 with worsening confusion, hypotension, found to have polymicrobial bacteremia (XDR Acinetobacter baumannii, E faecium, Kleb pneumo) likely 2/2 bilateral hydroureteronephrosis from obstructing pelvic mass, s/p bilateral ureteral stents (01/20/25). Initially in the ICU briefly on 01/20 but was downgraded when code status from full code to DNR/DNI by patient sister who is POA. Etiology of severe septic shock with end-organ failure (e.g., acute kidney injury) was due to catheter-associated UTI with hematogenous dissemination. Severe septic shock has RESOLVED, and so too has end-organ failure (e.g., acute kidney injury) RESOLVED, as shown above by the progressive decline in creatinine levels. In addition to empiric antibiotics patient has received IV fluid rehydration therapy Severe sepsis with septic shock/UTI - Septic shock has resolved with MAP > 65, and evidence of end organ damage has resolved Cr improvements - Ucx positive for 2 strains A. baumannii, E. Faecium and E. Facaelis - Bcx positive for A. baumannii/nosoco - Lactic acid, procalcitonin, and WBC counts downtrending and vitals hemody namically stable - Patient has been on several abx therapy including ceftriaxone and Zosyn; This was switched to Unasyn, meropenem and vancomycin with the rationale supporting coverage for Enterococcus with vancomycin and A. Baumannii with Unasyn and meropenem - Due to positive Bcx with complex organism, ID consulted appreciate recs stated below: - For carbapenem-resistant Acinetobacter baumannii: - Changed amp-sulbactam to 9 g q8h extended infusion over 4 hours - Started tigecycline 200 mg x 1, followed by 100 mg q12h -Ordered a 1 time dose of amikacin 15 mg/kg -Changed vanc to daptomycin 12 mg/kg IV q24h -Abx course recommended until 02/02 for a total 10 day course since abx change for gram negative bacteremia/sepsis - Increased WBCs to 18.93, lactate: 2.7, Pro-calcitonin: 4.04 and CRP: 22 trending up since Abx change 01/24, will order new blood cultures with increase in inflammatory response; Inflammatory markers have begun to trend down today 01/28 WBC: 17.81, lactate reflux: 1.8, Procal: 3.94, CRP: 19.57. WBCs/inflammatory markers increased again this AM 01/29, CRP downtrended. Fluctuating WBC/Procal/CRP, reductions to these markers 01/31-02/02. - Monitor Bcx, appreciate continued ID recs - Stool studies for C.diff toxin ordered: negative - Continue to monitor with CBC, procalcitonin, CRP, CMP QAM Colorectal carcinoma CT angiography abdomen pelvis showing significant increase in size compared to previous with extension of rectal mass to skin and invasion of obturator and g luteal muscles Was told up at [facility] that he was not currently a surgical candidate Patient with previous chemoradiation treatments and after recent DNR/DNI transition will call POA and attempt goals of care discussion for probably hospice/palliative intervention Palliative care consult placed, appreciate recommendations: Family have discussed that they are not ready to care for patient at home due to significant stressors and burden on mother who would be primary supervisor of communications. Patient will complete Abx therapy at [facility] through 02/02 and then transfer to SNF for further rehab. Current plan is for home with [facility] home hospice care when abx therapy is completed 02/02 per patient preference and family discussions with palliative care Transaminitis - Acutely worsened 01/25, AST: 164, ALT: 129, Alk Phos: 217 - 01/26 LFTs improving, AST: 29, ALT: 61, and Alk Phos: 157 - Continue to monitor, CMP QAM BUDDY Resolved Secondary to hypovolemia associated with anemia and dehydration Repeat laboratories in a.m. after more aggressive fluid resuscitation Electrolyte disturbances/hyperkalemia/hypomagnesemia- No signs of ectopy on monitor in the ED Potassium 5.8 on admission, likely secondary to acute kidney injury Repeat in a.m. after having received 2 L normal saline and PRBCs Continue Mg/K+ replenishment as needed - evaluate with AM CMP and Mg studies Diabetes mellitus- Hold metformin ICU protocol-resistant E faecalis bacteremia in November 2024). Baseline CK 17 on 01/24/25 -Continue monitoring Bcxs Total Time Total Time Spent Total Time Spent (In Minutes): <30 Discharge Plan Discharge Items Patient Disposition: Hospice - Home Reason For Visit: SEPSIS, SHOCK, ANEMIA, INCREASING RECTAL MASS Discharge Diagnosis: Septic shock Condition on Discharge: Critical Activity: Per Instructions section Non-emergency contact: Primary Care Provider Call non-emergency contact if: your pain is not controlled Follow-up/Referrals: Gen Morgan [Primary Care Provider] - Diet: Regular Addtl Attending Provider Instructions: You were admitted to the hospital for septic shock. You were treated with IV antibiotics, fluids, and IV blood pressure raising medications while in the ICU. After your blood pressure was in better range, you were transferred to the general medical floors, and your IV antibiotic regimen was changed to target the bacteria found in your blood stream seen on blood cultures. Due to the highly resistant and unique nature of this pathogen seen in your blood, the infectious disease doctors were consulted and worked together closely with the hospitalist team to configure your antibiotics so that you were on the most effective regimen. This antibiotic regimen ended on 02/02 for a total course of 10 days and reductions to your white blood cell counts and other inflammatory markers continued to reduce while you stayed clinically stable showing that this regimen was effective in clearing your sepsis. After you were transferred out of the ICU, you were put on a medication called midodrine to help raise your blood pressure when low, this was effective at keeping your blood pressure stable when you stopped the IV blood pressure medications, and you may continue to use this medication at home three times a day to effectively raise your blood pressure. The likely source of infection contributing to your sepsis and early septic shock was a UTI as the bugs cultured from your urinary tract matched the bugs seen in your blood cultures. Although the IV antibiotics has cleared this infection, adequate source control will be difficult and you may get another UTI or episode of sepsis due to your colorectal carcinoma compressing your bladder and continuing to extend and grow into the muscles and surrounding tissue. We have had several discussions with you about your future care, and you have indicated that you would be most comfortable living at home and you have agreed that you would like to have comfort measures and hospice care while at home. The palliative team has discussed this care with you and your family, and all of the teams involved in your care want to respect you wishes to live back at your home as comfortable as possible and not in a superintendent terminal care facility. It was my pleasure caring for you during this hospital stay and I respect your attitude and kindness while dealing with a severe diagnosis. Your home medications will be continued and can be reviewed with [facility] Hospice care once this has been finalized. We have added Zofran (Ondansetron) to your home medication list and this can be given orally or via IM/IV route depending on severity of nausea and ability to take oral intake. Hospice will review your home medication list and determine which will be continued to keep Carter comfortable, we previously discussed Carter's levothyroxine and Risperidone and these medications may be continued, especially as his Risperidone helps with sleep. A discharge summary will be sent to your primary care physician to ensure continuity of care. Please bring this discharge summary with you to your next office appointment so that your provider can review it at that time. Medications: Your medication list has been reviewed and reconciled upon discharge to ensure accuracy and continuity of care. An updated list of all your medications is included with your hospital discharge paperwork. Please review this list closely, and make note of any changes. Take your medications as instructed; do not skip a dose of your medicines. Make sure all of your doctors know every medicine you are taking (including [id number] medicines, vitamins, and supplements). Call your primary care provider before taking any new medicines (including hklm-[id number] medicines, vitamins, and supplements), because some of these may interact with your current medications, or may make your symptoms worse. Tell your primary care provider if you cannot afford your medications. CONTACT YOUR PRIMARY CARE PROVIDER if you experience any of the following: Difficulty following your treatment plan, or difficulty taking medications CALL 911 OR GO TO THE EMERGENCY DEPARTMENT if you experience any of the following: Sudden, severe abdominal pain or nausea/vomiting Severe chest pain, or chest pain that radiates (moves) to your jaw or arm Sudden, severe shortness of breath or difficulty breathing Thank you for allowing us to participate in your care. Pending Studies at Discharge: No Stand-Alone Forms: My [facility] Medications and DC Order Prescriptions: New ondansetron 4 mg tablet,disintegrating 4 mg PO Q4H PRN (Reason: nausea and vomiting) Qty: 30 0RF Rx Instructions: As needed for cancer related nausea/emesis midodrine 10 mg tablet 10 mg PO TID Qty: 30 0RF Rx Instructions: do not give last dose of day after 6PM or within 4 hrs of bedtime Continued thiamine HCl (vitamin B1) 100 mg tablet 100 mg PO DAILY folic acid 1 mg tablet 1 mg PO QAM Eliquis 5 mg tablet 5 mg PO BID potassium chloride 20 mEq tablet,ER particles/crystals 20 meq PO DAILY metoprolol succinate 25 mg tablet extended release 24 hr 12.5 mg PO DAILY ammonium lactate 12 % Lotion 1 applic TOPICAL BID ciprofloxacin HCl 250 mg tablet 250 mg PO Q12H cephalexin 500 mg capsule 500 mg PO BID pantoprazole 40 mg tablet,delayed release (DR/EC) 40 mg PO DAILY nystatin 100,000 unit/gram cream 1 applic TOPICAL BID cholecalciferol (vitamin D3) [Vitamin D3] 25 mcg (1,000 unit) Capsule 25 mcg PO DAILY midodrine 10 mg tablet 10 mg PO TIDM magnesium oxide 400 mg magnesium Tablet 400 mg PO DAILY venlafaxine [Effexor XR] 75 mg capsule,extended release 24hr 150 mg PO QAM risperidone 2 mg tablet 2 mg PO HS levothyroxine 50 mcg tablet 50 mcg PO DAILYBB metformin 500 mg tablet extended release 24 hr 500 mg PO QAM Discharge Orders: Discharge Order (Routine); Ordered 02/03/25 Ordered By: Elkin Hayes Admission Data Admit Date/Time: 01/19/25 22:52 Attending Provider: Douglas Osman Admit Provider: Dylan Pradhan Primary Care Provider: Gen Morgan Other Providers: Dylan Pradhan; Kaylee Mendosa; Elsi Richardson; [facility],Home Healthcare Supervising Physician Co-Signing Physician Notes I personally examined the patient and verified all cornelius points of history and exam, discussed case, and agree with decision making with Dr Hayes for home today. Vitals noted, in general he is awake and alert pleasant no distress. Appears somewhat emaciated. Breathing unlabored no accessory muscle use good effort. Skin without rashes pallor or icterus. Neuro without focal deficits. acintenobacter bacteremiafinished course of abx Rectal cancerunfortunately beyond any meaningful treatment. He would like to go home - home with hospice set up for today SCDs were utilized for DVT proph given bleed risk Resident Activity Tracking Resident Involvement: Resident Care Provided Care Provided: Adult Hospital Medicine
--- NOTE | 2025-02-03 09:06 | Billing Data ---
Date of Service February 03, 2025 Coding Level of Care Code 58136 IN/OBS DISCH 30 MIN/LESS
[2025-02-03 12:17] VITALS: BP 123/87
[2025-02-03] MEDS: ONDANSETRON 4 MG OD TAB PO ONE (12:32)
== END 2025-02-03 13:32 | disposition hospice, home (50) | DRG 659 ==
LOC: ED 17:25 → 1E 22:52 → SUATTDRO 22:52 → 1E 23:11 → 2W 01-20 14:08 → 3N 01-21 20:55 → 2N 01-22 13:20